=== PATIENT | male | born 1950 | race Caucasian/White ===

== ENCOUNTER 2022-09-13 17:59 | Emergency (ER) | payer MEDICARE, SELFPAY ==
[2022-09-13] VITALS (8 sets, daily range): BP systolic 166–169; BP diastolic 80–97; PULSE 59–83; RESP 20; TEMP 36.6; O2SAT 95–97
--- NOTE | ~2022-09-13 | XR_ITS ---
EXAMINATION: XR chest 2V Exam Date/Time: 09/13/2022 21:12 FIBERGLASS TUBE MOLDER HISTORY: cough Comparison: 06/12/2018. RESULT: Lines, tubes, and devices: ACDF hardware. Lungs and pleura: Senescent changes, otherwise clear. Cardiomediastinal silhouette: Stable. Other: No acute osseous or upper abdominal finding. IMPRESSION: No acute cardiopulmonary process. Reviewed, dictated and finalized at location K. RGLASS TUBE MOLDER
[2022-09-13 21:04] LABS: Influenza A QL RT-PCR Negative (Negative); Influenza B QL RT-PCR Negative (Negative); SARS-CoV-2 RNA PCR Negative
--- NOTE | 2022-09-13 22:06 | ED.URI ---
HPI - URI/Sore Throat General Chief Complaint: Upper Respiratory Infection Stated Complaint: UPPER RESP ISSUES Time Seen by Provider: 09/13/22 20:14 History of Present Illness HPI Narrative: 9-year-old male presents the emergency room for evaluation of shortness of breath, difficulty breathing, coughing, sinus congestion and postnasal drip for 2 months. Patient states that he saw his primary care provider with the symptoms started and was given a Z-Ramez and prednisone taper. States that symptoms improved briefly but have since returned. Related Data Home Medications Medication Instructions Recorded Confirmed albuterol sulfate 90 mcg/actuation 2 puff inhalation .4/-6hrs PRN 12/17/20 12/20/20 aerosol inhaler amlodipine 5 mg tablet 5 mg PO .q-hs 12/17/20 12/20/20 cyclobenzaprine 10 mg tablet 10 mg PO TID 12/17/20 12/20/20 lisinopril 40 mg tablet 40 mg PO DAILY 12/17/20 12/20/20 omeprazole magnesium 20 mg 20 mg PO DAILY 12/17/20 12/20/20 tablet,delayed release (Prilosec OTC) simvastatin 40 mg tablet 40 mg PO QHS 12/17/20 12/20/20 metformin 1,000 mg tablet 1,000 mg PO BID 12/20/20 12/20/20 Allergies Allergy/AdvReac Type Severity Reaction Status Date / Time No Known Allergies Allergy Verified 12/20/20 13:19 Review of Systems Review of Systems: CONSTITUTIONAL: Denies fever, chills, or sweats. EYES: Denies visual changes, redness, or discharge. ENT: Reports sinus congestion and postnasal drip CARDIOVASCULAR: Denies chest pain, palpitations, or edema. RESPIRATORY: Reports cough and wheezing GASTROINTESTINAL: Denies abdominal pain, nausea, vomiting, or diarrhea. GENITOURINARY: Denies dysuria or hematuria. SKIN: Denies rash or itching. MUSCULOSKELETAL: Denies back pain, joint pain, or myalgia. NEUROLOGIC: Denies headache, numbness, dizziness, or weakness. PSYCHIATRIC: Denies anxiety or depression. [facility] Past Medical History Medical History COPD (chronic obstructive pulmonary disease) Diabetes Hypertension Surgical History Surgical History H/O neck surgery History of hip surgery Previous back surgery Social History Social History Social History: current smoker Smoking packs per day: 0.75 Smoking cigarettes per day: 15.0 Smoking status: Current every day smoker Tobacco type: cigarettes Alcohol intake: never Substance use: former Exam Narrative: GENERAL: Well-appearing, well-nourished, no physical limitations, and in no acute distress. HEAD: Normocephalic, atraumatic. EYES: Conjunctivae normal, PERRLA and EOMI. ENT: External nose normal, Nares clear, no rhinorrhea or epistaxis. Mucous membranes moist. Oropharynx without tonsillar hypertrophy exudate or other lesions. External ears normal, bilateral TMs normal bilaterally NECK: Supple. No adenopathy or masses. CHEST: Expiratory wheezes throughout HEART: Regular rate and rhythm. No murmur heard. Normal peripheral pulses. EXTREMITIES: Normal range of motion. No edema. No clubbing or cyanosis SKIN: Warm, dry, no rash. No noted wounds NEURO: No focal deficits. Alert and oriented x3. MAEW. CN's II-XI intact bilaterally, normal gait PSYCH: Cooperative. Normal mood and affect. Course Vital Signs Vital signs: Vital Signs Temperature 36.6 C 09/13/22 19:12 Pulse Rate 83 09/13/22 19:12 Respiratory Rate 20 09/13/22 19:12 Blood Pressure 166/80 H 09/13/22 19:12 Pulse Oximetry 95 09/13/22 19:12 Oxygen Delivery Room Air 09/13/22 19:12 Temperature 36.6 C 09/13/22 19:12 Pulse Rate 71 09/13/22 23:18 Respiratory Rate 20 09/13/22 23:18 Blood Pressure 169/97 H 09/13/22 20:23 Pulse Oximetry 97 09/13/22 20:20 Oxygen Delivery Room Air 09/13/22 20:20 MDM - URI/Sore Throat MDM Narrative Medical decision making narrative: 9-year-old male to ER w
[2022-09-13] MEDS: IPRATROPIUM BR 0.02% INH SOLN 0.5 MG/2.5 ML VIAL INHALATION (22:25)
[2022-09-13] MEDS: ALBUTEROL SULFATE NEB 2.5 MG/3 ML INH INHALATION (22:25)
[2022-09-13] MEDS: ALBUTEROL SULFATE NEB 2.5 MG/3 ML INH 5 MG INHALATION (23:16)
== END 2022-09-13 23:49 | disposition home or self-care (01) ==
PROVIDERS: Emergency Medicine; Emergency Provider Nurse Practitioner Family; PCP Internal Medicine
DX: J44.1 Chronic obstructive pulmonary disease with (acute) exacerbation (principal); Z20.822 Contact with and (suspected) exposure to COVID-19; E11.9 Type 2 diabetes mellitus without complications; I10 Essential (primary) hypertension; F17.210 Nicotine dependence, cigarettes, uncomplicated; Z79.84 Long term (current) use of oral hypoglycemic drugs
CPT/HCPCS: 71046; 87636; 94640; 96372; 99283; 99284; J1100

== ENCOUNTER 2022-09-20 22:26 | Emergency (ER) | payer MEDICARE, SELFPAY ==
--- NOTE | ~2022-09-20 | CT_ITS ---
Clinical Indication: Shortness of breath CT Scan of the Chest with Contrast: Technique: Contiguous sections were acquired throughout the chest after intravenous administration of 100 cc of Omnipaque 350. Dose reduction technique was used on this scan by utilizing automated expos ure control and iterative reconstruction technique. The dose-length product (DLP) was 168.93 mGy-cm. Findings: Shotty mediastinal lymph nodes are not frankly enlarged by size criteria. No large central pulmonary embolus seen. No aortic aneurysm. Coronary artery calcifications are present. There is no evidence of pleural or pericardial effusion. Moderate to severe emphysema of the bilateral upper lobes noted. There is probable focal scarring at the left lung apex as well. There is a 7 mm, ovoid, noncalcified right upper lobe pulmonary nodule (a xial image 50). Images through the upper abdomen reveal no abnormalities. Impression: 7 mm noncalcified right upper lobe pulmonary nodule. According to Fleischner Society criteria, for a low-risk patient, follow-up CT scan in 6-12 months recommended, then consider additional 18-[address] scan. For a high-risk patient, follow-up CT scans in 6-12 months and in 18-24 months are recommend ed. Moderate to severe bilateral upper lobe emphysema. Reviewed, dictated and finalized at location M. HER TENDER Impression: 7 mm noncalcified right upper lobe pulmonary nodule. According to Fleischner So [facility] criteria, for a low-risk patient, follow-up CT scan in 6-12 months recomm ended, then consider additional 18-[address] scan. For a high-risk patient, f ollow-up CT scans in 6-12 months and in 18-24 months are recommended. Moderate to severe bilateral upper lobe emphysema.
--- NOTE | ~2022-09-20 | XR_ITS ---
EXAMINATION: XR chest 2V Exam Date/Time: 09/20/2022 22:39 A R SPECIALIST HISTORY: SOB, WEAKNESS, TIGHTNESS IN CHEST. Comparison: 09/05/2022. RESULT: Lines, tubes, and devices: ACDF hardware. Lungs and pleura: Senescent change, otherwise clear. Cardiomediastinal silhouette: Stable. Other: No acute osseous or upper abdominal finding. IMPRESSION: No acute cardiopulmonary process. Reviewed, dictated and finalized at location K. A R SPECIALIST
[2022-09-20 22:27] VITALS: BP 158/98; PULSE 132; RESP 24; TEMP 36.6; O2SAT 98
--- NOTE | 2022-09-20 22:31 | ECG_ITS ---
Measurements Intervals [place] Rate: 86 P: 15 MS: 124 QRS: 59 QRSD: 74 T: 68 QT: 334 QTc: 402 Interpretive Statements SINUS RHYTHM BASELINE ARTIFACT- I, II, III, AVR, AVL, AVF, V1, V3 NORMAL ECG NO PREVIOUS ECG AVAILABLE FOR COMPARISON Electronically Signed On 09-21-2022 15:20:53 STEAM OVEN OPERATOR by Ryan Berry D.O.
[2022-09-20 23:23] LABS: Basophils Percent Auto 0.3 % (0.2-1.2); Eosinophils Absolute Auto 0.1 K/mm3 (0-0.3); Eosinophils Percent Auto 1.1 % (0-4.4); Hematocrit 47.6 % (42.0-52.0); Hemoglobin 16.1 g/dL (14.0-18.0); Immature Granulocyte Absolute 0.08 K/mm3 (0.00-0.031); Immature Granulocyte Percent A 0.7 % (0-0.5); Lymphocytes Absolute Auto 2.09 K/mm3 (0.9-3.2); Lymphocytes Percent Auto 19.1 % (18.3-44.2); Mean Corpuscular HGB Conc 33.8 g/dl (32-36); Mean Corpuscular Hemoglobin 31.4 pg (26-34); Monocytes Absolute Auto 0.6 K/mm3 (0.1-0.6); Monocytes Percent Auto 5.2 % (2.6-8.5); Neutrophils Percent Auto 73.6 % (45.5-73.1); Platelet Count Result 261 k/mm3 (150-375); Red Blood Count 5.12 M/mm3 (4.6-6.20); Red Cell Distribution Width 13.6 % (11.5-14.5); White Blood Count 10.9 K/mm3 (4.5-10.0)
[2022-09-20 23:39] LABS: Prothrombin Time 12.8 Seconds (11.1-14.7)
[2022-09-20 23:40] LABS: Partial Thromboplastin Time 28.6 SECONDS (22.3-36.8)
[2022-09-20 23:50] VITALS: BP 154/80; PULSE 85; RESP 18; O2SAT 95
[2022-09-20 23:58] VITALS: PULSE 82; RESP 18; O2SAT 94
[2022-09-21] VITALS (14 sets, daily range): BP systolic 110–173; BP diastolic 68–141; PULSE 73–84; RESP 17–21; O2SAT 93–100
[2022-09-21 00:07] LABS: Alanine Aminotransferase 31 U/L (6-50); Albumin Level 3.8 g/dL (3.5-5.1); Alkaline Phosphatase 146 U/L (38-126); Anion Gap 6 mmol/L (8-16); Aspartate Amino Transferase 21 U/L (17-59); Bilirubin,Total 0.8 mg/dL (0.2-1.3); Blood Urea Nitrogen 15 mg/dL (9-20); Calcium 8.7 mg/dL (8.4-10.2); Carbon Dioxide 27 mmol/L (22-30); Chloride 103 mmol/L (98-107); Estimated CRCL calculation 63 ml/min; Estimated Glomerular Filt Rate > 60; Glucose 249 mg/dL (65-110); Lipase 257 U/L (23-300); Potassium 4.1 mmol/L (3.4-5.0); Sodium 136 mmol/L (137-145)
[2022-09-21 00:15] LABS: Troponin I < 0.012 ng/mL (0.000-0.034)
--- NOTE | 2022-09-21 00:48 | ED.GENADULT ---
HPI - General Adult General Chief complaint: Shortness of Breath/Dyspnea Stated complaint: shortness of breath Time Seen by Provider: 09/20/22 23:57 History of Present Illness HPI narrative: 72-year-old male with history of COPD and is a current smoker presenting the emergency department for evaluation of worsening shortness of breath. Patient was evaluated in the emergency department on the for shortness of breath. Patient did feel improved after breathing treatment and was discharged on prednisone and Sudafed. Patient states over the last 2 days he has had worsening shortness of breath. Patient denies any associated chest pain with this. Related Data Home Medications Medication Instructions Recorded Confirmed albuterol sulfate 90 mcg/actuation 2 puff inhalation .4/-6hrs PRN 12/17/20 12/20/20 aerosol inhaler amlodipine 5 mg tablet 5 mg PO .q-hs 12/17/20 12/20/20 cyclobenzaprine 10 mg tablet 10 mg PO TID 12/17/20 12/20/20 lisinopril 40 mg tablet 40 mg PO DAILY 12/17/20 12/20/20 omeprazole magnesium 20 mg 20 mg PO DAILY 12/17/20 12/20/20 tablet,delayed release (Prilosec OTC) simvastatin 40 mg tablet 40 mg PO QHS 12/17/20 12/20/20 metformin 1,000 mg tablet 1,000 mg PO BID 12/20/20 12/20/20 Allergies Allergy/AdvReac Type Severity Reaction Status Date / Time No Known Allergies Allergy Verified 12/20/20 13:19 Review of Systems Review of Systems: CONSTITUTIONAL: Denies fever, chills, or sweats. EYES: Denies visual changes, redness, or discharge. ENT: Denies rhinorrhea, congestion, sore throat, or otalgia. CARDIOVASCULAR: Denies chest pain, palpitations, or edema. RESPIRATORY: See HPI GASTROINTESTINAL: Denies abdominal pain, nausea, vomiting, or diarrhea. GENITOURINARY: Denies dysuria or hematuria. SKIN: Denies rash or itching. MUSCULOSKELETAL: Denies back pain, joint pain, or myalgia. NEUROLOGIC: Denies headache, numbness, or weakness. [facility] Past Medical History Medical History COPD (chronic obstructive pulmonary disease) Diabetes Hypertension Surgical History Surgical History H/O neck surgery History of hip surgery Previous back surgery Social History Social History Social History: current smoker Smoking packs per day: 0.75 Smoking cigarettes per day: 15.0 Smoking status: Current every day smoker Tobacco type: cigarettes Alcohol intake: never Substance use: former Exam Narrative: APPEARANCE: Well appearing, no pain, no distress, well-nourished. HEAD: normocephalic, atraumatic. EYES: PERRLA/EOMI, conjunctivae clear. NOSE: Normal no drainage EARS:TMS clear with good light reflex. THROAT: Pharynx clear, no exudate. NECK: Supple. No adenopathy, no masses. RESPIRATORY: Expiratory wheeze in all lung gregory CARDIOVASCULAR: Regular rate and rhythm without murmurs rubs or gallops. ABDOMINAL: Soft, nontender, nondistended, normal bowel sounds MUSCULOSKELETAL: Moves all extremities. Strength/ROM intact, No edema, No calf tenderness. NEURO: Alert. Cranial nerves II through XII intact. Grossly intact Course Course Emergency Course: Patient's lung sounds are improved with the albuterol treatment. Patient is no longer tachycardic. Patient's prednisone was recently completed. Patient is afebrile but does have a leukocytosis of 10.9. CMP is similar to his baseline. CT did show evidence of a possible chronic infection. Patient does feel improved after breathing treatment. Patient was negative for influenza COVID and RSV. Will be discharged home on antibiotics prednisone and albuterol inhaler. Patient states he feels improved and is requesting discharge to home. Admission was discussed with the patient refers to be discharged. Patient is being treated for an underlying pneumonia. Differential diagnosis does includ
[2022-09-21] MEDS: methylPREDNISolone SOD SUCC 125 MG VIAL IV PUSH (00:53)
[2022-09-21 01:26] LABS: Influenza A QL RT-PCR Negative (Negative); Influenza B QL RT-PCR Negative (Negative); RSV RNA, RT-PCR Negative (Negative); SARS-CoV-2 RNA PCR Negative
[2022-09-21] MEDS: ALBUTEROL SULFATE NEB 2.5 MG/3 ML INH 10 MG INHALATION (01:26)
[2022-09-21] MEDS: IPRATROPIUM BR 0.02% INH SOLN 0.5 MG/2.5 ML VIAL 1 MG INHALATION (01:27)
[2022-09-21 02:30] LABS: Troponin I < 0.012 ng/mL (0.000-0.034)
[2022-09-21] MEDS: AMOXICILLIN/CLAVULANATE K 875-125 MG TAB 1 TABLET PO (03:29)
[2022-09-21] MEDS: AZITHROMYCIN 250 MG TABLET 500 MG PO (03:29)
== END 2022-09-21 03:37 | disposition home or self-care (01) ==
PROVIDERS: Emergency Provider Emergency Medicine; PCP Internal Medicine
DX: J18.9 Pneumonia, unspecified organism (principal); J43.9 Emphysema, unspecified; Z20.822 Contact with and (suspected) exposure to COVID-19; E11.9 Type 2 diabetes mellitus without complications; I10 Essential (primary) hypertension; Z79.84 Long term (current) use of oral hypoglycemic drugs; F17.210 Nicotine dependence, cigarettes, uncomplicated; R91.1 Solitary pulmonary nodule
CPT/HCPCS: 36415; 71046; 71260; 80053; 83690; 84484; 85025; 85610; 85730; 87637; 93005; 96374; 99284; A9270; J2930; Q9967

== ENCOUNTER 2022-10-01 22:01 | Observation (INO) | payer MEDICARE, SELFPAY ==
[2022-10-01] VITALS (14 sets, daily range): BP systolic 115–159; BP diastolic 65–121; PULSE 90–118; RESP 18–28; TEMP 36.6; O2SAT 93–100
--- NOTE | ~2022-10-01 | XR_ITS ---
EXAMINATION: XR chest 1V portable DATE: 10/01/2022 23:13 INDICATION: Soreness of breath and cough TECHNIQUE: frontal view of the chest was obtained. COMPARISON: Chest radiograph dated 09/20/[address] dated 09/21/2022 FINDINGS: The lungs remain clear with no focal airspace opacities, pulmonary edema, pleural effusion or pneumot horax. Heart size is normal. Small hiatal hernia. Partially visualized plate and screw fixation for l ower cervical anterior spinal fusion. IMPRESSION: 1. No acute cardiopulmonary disease. 2. Small hiatal hernia. Reviewed, dictated and finalized at location A. ON TIER
--- NOTE | 2022-10-01 22:56 | ECG_ITS ---
Measurements Intervals [place] Rate: 111 P: 53 RI: 138 QRS: 68 QRSD: 76 T: 44 QT: 301 QTc: 410 Interpretive Statements SINUS TACHYCARDIA ABNORMAL ECG COMPARED TO ECG 09/20/2022 22:39:34 SINUS TACHYCARDIA NOW PRESENT Electronically Signed On 10-02-2022 7:57:30 CURB SETTER HELPER by Ryan Berry D.O.
[2022-10-01] MEDS: ALBUTEROL SULFATE NEB 2.5 MG/3 ML INH 5 MG INHALATION (23:12)
[2022-10-01 23:33] LABS: Basophils Percent Auto 0.3 % (0.2-1.2); Eosinophils Absolute Auto 0.1 K/mm3 (0-0.3); Eosinophils Percent Auto 2.2 % (0-4.4); Hematocrit 44.4 % (42.0-52.0); Hemoglobin 14.8 g/dL (14.0-18.0); Immature Granulocyte Absolute 0.04 K/mm3 (0.00-0.031); Immature Granulocyte Percent A 0.6 % (0-0.5); Lymphocytes Absolute Auto 1.28 K/mm3 (0.9-3.2); Lymphocytes Percent Auto 20.4 % (18.3-44.2); Mean Corpuscular HGB Conc 33.3 g/dl (32-36); Mean Corpuscular Hemoglobin 31.6 pg (26-34); Mean Corpuscular Volume 94.9 fl (80-100); Mean Platelet Volume 9.5 fl (7.4-10.4); Monocytes Absolute Auto 0.8 K/mm3 (0.1-0.6); Monocytes Percent Auto 12.5 % (2.6-8.5); Platelet Count Result 220 k/mm3 (150-375); Red Blood Count 4.68 M/mm3 (4.6-6.20); Red Cell Distribution Width 14.2 % (11.5-14.5); White Blood Count 6.3 K/mm3 (4.5-10.0)
[2022-10-01 23:51] LABS: Alanine Aminotransferase 23 U/L (6-50); Albumin Level 3.8 g/dL (3.5-5.1); Alkaline Phosphatase 105 U/L (38-126); Anion Gap 8 mmol/L (8-16); Aspartate Amino Transferase 20 U/L (17-59); Bilirubin,Total 0.6 mg/dL (0.2-1.3); Blood Urea Nitrogen 16 mg/dL (9-20); Calcium 8.6 mg/dL (8.4-10.2); Carbon Dioxide 22 mmol/L (22-30); Chloride 103 mmol/L (98-107); Estimated CRCL calculation 56 ml/min; Estimated Glomerular Filt Rate > 60; Glucose 270 mg/dL (65-110); Potassium 4.4 mmol/L (3.4-5.0); Sodium 133 mmol/L (137-145)
[2022-10-02] VITALS (31 sets, daily range): BP systolic 129–137; BP diastolic 60–115; PULSE 89–112; RESP 16–27; TEMP 36.2–36.8; O2SAT 93–100; BMI 24.8; BMI 23.4
[2022-10-02 00:10] LABS: Influenza A QL RT-PCR Negative (Negative); Influenza B QL RT-PCR Negative (Negative); RSV RNA, RT-PCR Negative (Negative); SARS-CoV-2 RNA PCR Negative
[2022-10-02] MEDS: ALBUTEROL SULFATE NEB 2.5 MG/3 ML INH 10 MG INHALATION (00:47)
[2022-10-02] MEDS: IPRATROPIUM BR 0.02% INH SOLN 0.5 MG/2.5 ML VIAL 2 MG INHALATION (00:48)
--- NOTE | 2022-10-02 00:49 | PM.IMHP ---
H&P: HPI History of Present Illness Date/Time: 10/02/22 00:49 Chief Complaint: Shortness of breath Narrative: This is a 72-year-old male with past medical history significant for tobacco dependence, COPD/emphysema current everyday smoker patient presents to the emergency room due to shortness of breath for the last several days not getting any better progressively has gotten worse in spite of the frequent use of nebulizers at home. Patient also with cough productive of sputum, no fevers, no rigors, no chills, no night sweats. Preliminary workup was significant for sodium 133 a chest x-ray was reported as; FINDINGS: The lungs remain clear with no focal airspace opacities, pulmonary edema, pleural effusion or pneumothorax. Heart size is normal. Small hiatal hernia. Partially visualized plate and screw fixation for lower cervical anterior spinal fusion. IMPRESSION: 1. No acute cardiopulmonary disease. 2. Small hiatal hernia. Review of Systems Review of Systems: Shortness of breath, wheezing, cough, poor appetite. Constitutional: Constitutional: Denies chills, Denies fever(s), Denies malaise and Denies night sweats Eyes: Eyes: Denies change in vision ENT: Denies odynophagia Cardiovascular: Cardiovascular: Denies chest pain and Denies leg edema Respiratory: Respiratory: Denies change in phlegm color, Reports cough, Denies excessive phlegm production, Reports dyspnea and Reports wheezing Gastrointestinal: Gastrointestinal: Denies abdominal pain, Denies dyspepsia, Denies heartburn, Denies diarrhea, Denies nausea and Denies vomiting Genitourinary: Genitourinary: Denies dysuria Musculoskeletal: Musculoskeletal: Denies back pain, Denies myalgias and Denies muscle weakness Integumentary/Breasts: Skin/Breast: Denies rash Neurologic: Denies focal weakness and Denies Sensory deficit (Neuro) Psychiatric: Psychiatric: Reports no additional psychiatric complaints and Reports as per HPI Endocrine: Endocrine: Denies cold intolerance, Denies flushing, Denies heat intolerance, Denies polyphagia, Denies polydipsia and Denies palpitations Hematologic/Lymphatic: Hematologic/Lymphatic: Reports no additional hematologic/lymphatic complaints and Reports as per HPI Allergic/Immunologic: Allergic/Immunologic: Reports no additional allergic/immunologic complaints and Reports as per HPI PMFSH Past Medical History Medical History COPD (chronic obstructive pulmonary disease) Diabetes Hypertension Surgical History Surgical History H/O neck surgery History of hip surgery Previous back surgery Social History Social History Social History: current smoker Smoking packs per day: 0.75 Smoking cigarettes per day: 15.0 Smoking status: Current every day smoker Tobacco type: cigarettes Alcohol intake: never Substance use: former Substance use type: does not use Lack of Transportation: No Lack of Food: Never True Current Housing: I Have Housing Concerned About Future Housing: No Difficulty Paying Gas/Electric Bills: No Difficulty Paying for Meds: YES Currently Unemployed: No Education: High School Diploma/GED Difficulty w/ Childcare or Family Care: No Spiritual care concerns: No Meds Home Medications and Allergies Home Medications Medication Instructions Recorded Confirmed Type albuterol sulfate 90 mcg/actuation 2 puff inhalation .4/-6hrs PRN 12/17/20 10/02/22 History aerosol inhaler Shortness Of Breath amlodipine 5 mg tablet (Norvasc) 5 mg PO .q-hs 12/17/20 10/02/22 History cyclobenzaprine 10 mg tablet 10 mg PO TID 12/17/20 10/02/22 History lisinopril 40 mg tablet (Zestril) 40 mg PO DAILY 12/17/20 10/02/22 History omeprazole magnesium 20 mg 20 mg PO DAILY 12/17/20 10/02/22 History tablet,delayed release (Prilosec OTC)
--- NOTE | 2022-10-02 01:01 | ED.GENADULT ---
HPI - General Adult General Chief complaint: Shortness of Breath/Dyspnea Stated complaint: SOB, cough for months Time Seen by Provider: 10/01/22 22:46 History of Present Illness HPI narrative: 72-year-old male with history of COPD and smoking presents to the department for evaluation of worsening shortness of breath. Patient has been having recurrent COPD exacerbations over the last 2 months. Patient was evaluated in the emergency department approximately 10 days ago and was started on antibiotics and steroids. Patient states after completing the steroids he had worsening symptoms again. Patient reports he does use albuterol nebulizer at home but denies being on any inhaled steroid. Patient states he is still a smoker. Patient reports shortness of breath but denies any associated chest pain with this. Patient also reports that last week he did have some swelling of his foreskin but states that this has since improved. Patient has been using a diaper cream. Related Data Home Medications Medication Instructions Recorded Confirmed albuterol sulfate 90 mcg/actuation 2 puff inhalation .4/-6hrs PRN 12/17/20 10/02/22 aerosol inhaler Shortness Of Breath amlodipine 5 mg tablet (Norvasc) 5 mg PO .q-hs 12/17/20 10/02/22 cyclobenzaprine 10 mg tablet 10 mg PO TID 12/17/20 10/02/22 lisinopril 40 mg tablet (Zestril) 40 mg PO DAILY 12/17/20 10/02/22 omeprazole magnesium 20 mg 20 mg PO DAILY 12/17/20 10/02/22 tablet,delayed release (Prilosec OTC) simvastatin 40 mg tablet (Zocor) 40 mg PO QHS 12/17/20 10/02/22 metformin 1,000 mg tablet 1,000 mg PO BID 12/20/20 10/02/22 Allergies Allergy/AdvReac Type Severity Reaction Status Date / Time No Known Allergies Allergy Verified 10/01/22 23:33 Review of Systems Review of Systems: CONSTITUTIONAL: Denies fever, chills, or sweats. EYES: Denies visual changes, redness, or discharge. ENT: Denies rhinorrhea, congestion, sore throat, or otalgia. CARDIOVASCULAR: Denies chest pain, palpitations, or edema. RESPIRATORY: See HPI GASTROINTESTINAL: Denies abdominal pain, nausea, vomiting, or diarrhea. GENITOURINARY: Denies dysuria or hematuria. SKIN: Denies rash or itching. MUSCULOSKELETAL: Denies back pain, joint pain, or myalgia. NEUROLOGIC: Denies headache, numbness, or weakness. [facility] Past Medical History Medical History (Updated 10/03/22 @ 16:12 by Kelsie Tinajero PA-C) COPD (chronic obstructive pulmonary disease) Diabetes Hypertension Surgical History Surgical History H/O neck surgery History of hip surgery Previous back surgery Social History Social History Social History: current smoker Smoking packs per day: 0.75 Smoking cigarettes per day: 15.0 Smoking status: Current every day smoker Tobacco type: cigarettes Alcohol intake: never Substance use: former Substance use type: does not use Lack of Transportation: No Lack of Food: Never True Current Housing: I Have Housing Concerned About Future Housing: No Difficulty Paying Gas/Electric Bills: No Difficulty Paying for Meds: YES Currently Unemployed: No Education: High School Diploma/GED Difficulty w/ Childcare or Family Care: No Living arrangements: alone Occupation/Education: retired Spiritual care concerns: No Exam Narrative: APPEARANCE: Well appearing, no pain, no distress, well-nourished. HEAD: normocephalic, atraumatic. EYES: PERRLA/EOMI, conjunctivae clear. NOSE: Normal no drainage EARS:TMS clear with good light reflex. THROAT: Pharynx clear, no exudate. NECK: Supple. No adenopathy, no masses. RESPIRATORY: Significant wheeze and tachypnea CARDIOVASCULAR: Regular rate and rhythm without murmurs rubs or gallops. ABDOMINAL: Soft, nontender, nondistended, normal bowel sounds MUSCULOSKELETAL: Moves all extremities. Strength/ROM intact, No edema, No calf tenderness. N
[2022-10-02] MEDS: methylPREDNISolone SOD SUCC 125 MG VIAL IV PUSH (01:28)
[2022-10-02] MEDS: ALBUTEROL SULFATE NEB 2.5 MG/3 ML INH 5 MG INHALATION ×6 (05:21→23:53)
[2022-10-02] MEDS: IPRATROPIUM BR 0.02% INH SOLN 0.5 MG/2.5 ML VIAL INHALATION ×6 (05:22→23:53)
[2022-10-02] MEDS: methylPREDNISolone SOD SUCC 125 MG VIAL 60 MG IV PUSH ×3 (05:44→21:07)
[2022-10-02 06:18] LABS: Glucose Point of Care 251 mg/dl (65-105)
[2022-10-02 07:55] LABS: Glucose Point of Care > 500 mg/dl (65-105)
[2022-10-02] MEDS: INSULIN ASPART (*BKC) 100 UNITS/ML 10 UNITS SUB-Q ×2 (08:35→11:07)
[2022-10-02] MEDS: INSULIN GLARGINE (*BKC) 100 UNITS/ML 40 UNITS SUB-Q (08:35)
[2022-10-02 08:49] LABS: Anion Gap 9 mmol/L (8-16); Blood Urea Nitrogen 15 mg/dL (9-20); Calcium 9.3 mg/dL (8.4-10.2); Carbon Dioxide 23 mmol/L (22-30); Chloride 96 mmol/L (98-107); Estimated CRCL calculation 51 ml/min; Estimated Glomerular Filt Rate > 60; Glucose 502 mg/dL (65-110); Magnesium 1.8 mg/dL (1.6-2.3); Sodium 128 mmol/L (137-145)
[2022-10-02 08:53] LABS: Hemoglobin A1C 9.3 % (<5.7)
[2022-10-02 08:58] LABS: Hematocrit 42.5 % (42.0-52.0); Hemoglobin 13.9 g/dL (14.0-18.0); Mean Corpuscular HGB Conc 32.7 g/dl (32-36); Mean Corpuscular Hemoglobin 31.4 pg (26-34); Mean Corpuscular Volume 95.9 fl (80-100); Mean Platelet Volume 9.6 fl (7.4-10.4); Platelet Count Result 199 k/mm3 (150-375); Red Blood Count 4.43 M/mm3 (4.6-6.20); Red Cell Distribution Width 14.1 % (11.5-14.5); White Blood Count 6.3 K/mm3 (4.5-10.0)
[2022-10-02] MEDS: metFORMIN HCL 500 MG TABLET 1000 MG PO ×2 (09:42→17:06)
[2022-10-02] MEDS: lisinopriL 20 MG TABLET 40 MG PO (09:42)
[2022-10-02] MEDS: PANTOPRAZOLE 40 MG TABLET PO (09:44)
[2022-10-02] MEDS: ENOXAPARIN 40 MG/0.4 ML SYRINGE SUB-Q (09:44)
[2022-10-02] MEDS: CYCLOBENZAPRINE HCL 10 MG TABLET PO ×3 (09:44→17:06)
[2022-10-02 09:46] LABS: Glucose Point of Care 472 mg/dl (65-105)
[2022-10-02 10:46] LABS: Glucose Point of Care 405 mg/dl (65-105)
[2022-10-02] MEDS: INSULIN GLARGINE (*BKC) 100 UNITS/ML 20 UNITS SUB-Q (11:07)
[2022-10-02 11:48] LABS: Glucose Point of Care 390 mg/dl (65-105)
--- NOTE | 2022-10-02 11:48 | PM.IMPN ---
Progress Note: A&P Assessment and Plan (1) COPD exacerbation: Code(s): J44.1 - Chronic obstructive pulmonary disease with (acute) exacerbation Status: Acute Assessment and Plan: 10/02/2022 interval history: 72-year-old male with long history of smoking he states he had been smoking 2 packs per day and having cough, shortness of breath, and wheezing he has cut down on smoking nonsmoker 1/2 pack per day, a presented emergency department with exacerbation of COPD being treated with Solu-Medrol and bronchodilator and azithromycin was added to cover for atypical pneumonia, patient states is feeling much better compared to when he arrived not as short of breath, will taper patient Solu-Medrol his symptoms have improved if blood sugar is a climbing high, will also add steroid inhaler, will continue to monitor will have a PT OT evaluate the patient further recommendation to follow. (2) Tobacco dependence: Code(s): F17.200 - Nicotine dependence, unspecified, uncomplicated Status: Acute Assessment and Plan: patient had been smoking 2 packs per day now has cut down to half a pack per day, patient is counseled to stop smoking Subjective Date/time seen: 10/02/22 11:48 ED-HPI narrative: 72-year-old male with history of COPD and smoking presents emerged department for evaluation of worsening shortness of breath.? Patient has been having recurrent COPD exacerbations over the last 2 months.? Patient was evaluated in the emergency department approximately 10 days ago and was started on antibiotics and steroids.? Patient states after completing the steroids he had worsening symptoms again.? Patient reports he does use albuterol nebulizer at home but denies being on any inhaled steroid.? Patient states he is still a smoker.? Patient reports shortness of breath but denies any associated chest pain with this. Patient also reports that last week he did have some swelling of his foreskin but states that this has since improved.? Patient has been using a diaper cream. 10/02/2022 interval history: 72-year-old male with long history of smoking he states he had been smoking 2 packs per day and having cough, shortness of breath, and wheezing he has cut down on smoking nonsmoker 1/2 pack per day, a presented emergency department with exacerbation of COPD being treated with Solu-Medrol and bronchodilator and azithromycin was added to cover for atypical pneumonia, patient states is feeling much better compared to when he arrived not as short of breath, will taper patient Solu-Medrol his symptoms have improved if blood sugar is a climbing high, will also add steroid inhaler, will continue to monitor will have a PT OT evaluate the patient further recommendation to follow. Review of Systems Review of Systems: CONSTITUTIONAL: Denies fever, chills, or sweats. EYES: Denies visual changes, redness, or discharge. ENT: Denies rhinorrhea, congestion, sore throat, or otalgia. CARDIOVASCULAR: Denies chest pain, palpitations, or edema. RESPIRATORY: See HPI GASTROINTESTINAL: Denies abdominal pain, nausea, vomiting, or diarrhea. GENITOURINARY: Denies dysuria or hematuria. SKIN: Denies rash or itching. MUSCULOSKELETAL: Denies back pain, joint pain, or myalgia. NEUROLOGIC: Denies headache, numbness, or weakness. Exam Narrative: Patient is comfortable, NAD HEENT: eyes are clear and none icteric LUNGS: bilateral fair air entry with wheezing and rhonchi HEART: RR S1S2 ABD: nondistended Lower extremities: no edema SKIN: nonjaundiced Neuro: grossly intact. Objective Data Vital Signs Vital Signs: Vital Signs - 24 hr 10/01/22 22:04 10/01/22 22:55 10/01/22 23:12 Temperature 97.8 F Pulse Rate 118 H 115 H 94 Respiratory Rate 20 20 Blood Pressure 135/98 H Pulse Oximetry 97 Oxygen Delivery Room Air 10/01/22 23:15 10/01/22 23:21 10/02/22 00:48 Temperature Pulse Rate 109 H 112 H Respiratory Rate 20 20 Blood Pressure
--- NOTE | 2022-10-02 13:50 | PM.CNPUL ---
Assessment and Plan Assessment and plan (1) COPD exacerbation: Code(s): J44.1 - Chronic obstructive pulmonary disease with (acute) exacerbation Status: Acute Assessment and Plan: 72-year-old man with radiographic emphysema on last chest CT has had a recurrent cough wheezing shortness of breath over the last 3 months related to COPD exacerbation. Patient never had history of obstructive airway disease in the past and he had no evidence of elevated eosinophils on last CBC. He has been treated with antibiotics during most recent ER evaluation. Plan: Continue with nebulized short-acting bronchodilators, DVT prophylaxis. I have crease the IV Solu-Medrol to 3 times daily. (2) Tobacco dependence: Code(s): F17.200 - Nicotine dependence, unspecified, uncomplicated Status: Acute (3) Lung nodule: Code(s): R91.1 - Solitary pulmonary nodule Status: Acute Assessment and Plan: Patient was found to have a right upper lobe nodule measuring 7 mm. Will repeat chest CT in approximately 6 months. The patient needs to return to Pulmonary Clinic for follow-up for both his lung nodule and also COPD. History of Present Illness History of Present Illness Consult date: 10/02/22 Chief complaint: copd exacerbation Narrative: this 72-year-old man was admitted to the hospital with recurrent shortness of breath and wheezing. The patient was in his usual state of health until approximately 3 months ago when he started to have cough with sputum production wheezing and shortness of breath. The patient was evaluated by his primary care provider who prescribed oral steroid burst for 5 days and ics / Laba inhaler. The patient temporarily felt better but approximately 3 weeks ago he started to have again shortness of breath wheezing and cough. He has been evaluated again in the emergency room over the last 3 weeks and has been described oral steroid burst again as well as Augmentin and Zithromax. initial diagnostic studies with a chest CT showed centrilobular emphysema bilaterally and a 7 mm right upper lobe nodule. The patient has been treated with nebulized short-acting bronchodilators and IV steroids. He continues to have mild wheezing, less shortness of breath but no fever chills hemoptysis chest pain palpitations or lower extremity edema. he tested negative for RSV influenza and covid during recent ER evaluation. He has been a smoker of approximately 1 pack per day for many years. 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 He had no history of asthma. Past medical history is also significant for diabetes mellitus and hypertension. Review of Systems Review of Systems: Patient reports no significant weight changes. He has no orthopnea. He has history of acid reflux disease and has been on medications. He has had some loose bowel movements lately. He he has no joint pain. He has no lower extremity edema. The remainder of the 12 point system review is negative. [facility] Past Medical History Medical History COPD (chronic obstructive pulmonary disease) Diabetes Hypertension Surgical History Surgical History H/O neck surgery History of hip surgery Previous back surgery Social History Social History Social History: current smoker Smoking packs per day: 0.75 Smoking cigarettes per day: 15.0 Smoking status: Current every day smoker Tobacco type: cigarettes Alcohol intake: never Substance use: former Substance use type: does not use Lack of Transportation: No Lack of Food: Never True Current Housing: I Have Housing Concerned About Future Housing: No Difficulty Paying Gas/Electric Bills: No Difficulty Paying for Meds: YES Currently Unemployed: No Education: High School Diploma/GED Difficulty w/ Childcare
[2022-10-02 16:51] LABS: Glucose Point of Care 265 mg/dl (65-105)
[2022-10-02] MEDS: INSULIN ASPART (*BKC) 100 UNITS/ML SUB-Q (17:06)
[2022-10-02 20:26] LABS: Glucose Point of Care 245 mg/dl (65-105)
[2022-10-02] MEDS: SIMVASTATIN 20 MG TABLET 40 MG PO (21:06)
[2022-10-02] MEDS: amLODIPine BESYLATE 5 MG TABLET PO (21:07)
[2022-10-02] MEDS: rOPINIRole HCL 0.5 MG TABLET BY MOUTH (21:07)
[2022-10-03] VITALS (14 sets, daily range): BP systolic 114–141; BP diastolic 55–71; PULSE 87–109; RESP 16–22; TEMP 36–36.7; O2SAT 94–97
[2022-10-03] MEDS: ALBUTEROL SULFATE NEB 2.5 MG/3 ML INH 5 MG INHALATION ×5 (04:10→20:30)
[2022-10-03] MEDS: IPRATROPIUM BR 0.02% INH SOLN 0.5 MG/2.5 ML VIAL INHALATION ×5 (04:10→20:30)
[2022-10-03] MEDS: methylPREDNISolone SOD SUCC 125 MG VIAL 60 MG IV PUSH ×3 (05:51→21:19)
[2022-10-03 06:29] LABS: Hematocrit 39.7 % (42.0-52.0); Hemoglobin 13.3 g/dL (14.0-18.0); Mean Corpuscular HGB Conc 33.5 g/dl (32-36); Mean Corpuscular Hemoglobin 31.1 pg (26-34); Mean Corpuscular Volume 92.8 fl (80-100); Mean Platelet Volume 9.1 fl (7.4-10.4); Platelet Count Result 220 k/mm3 (150-375); Red Blood Count 4.28 M/mm3 (4.6-6.20); Red Cell Distribution Width 14.1 % (11.5-14.5); White Blood Count 11.4 K/mm3 (4.5-10.0)
[2022-10-03 06:44] LABS: Anion Gap 8 mmol/L (8-16); Blood Urea Nitrogen 21 mg/dL (9-20); Calcium 9.2 mg/dL (8.4-10.2); Carbon Dioxide 21 mmol/L (22-30); Chloride 102 mmol/L (98-107); Estimated CRCL calculation 56 ml/min; Estimated Glomerular Filt Rate > 60; Glucose 221 mg/dL (65-110); Magnesium 1.8 mg/dL (1.6-2.3); Potassium 4.4 mmol/L (3.4-5.0); Sodium 131 mmol/L (137-145)
[2022-10-03 08:09] LABS: Glucose Point of Care 183 mg/dl (65-105)
--- NOTE | 2022-10-03 09:05 | PM.PNPUL ---
Progress Note: A&P Assessment and Plan (1) COPD exacerbation: Code(s): J44.1 - Chronic obstructive pulmonary disease with (acute) exacerbation Status: Acute Assessment and Plan: 72-year-old man with a history of recurrent cough wheezing for the last 3 months related to partially treated COPD exacerbation. He has been on IV steroids and nebulized short-acting bronchodilators since yesterday. Respiratory status seems to be improving. Patient has less shortness of breath less wheezing. Plan: Continue with current regimen of IV steroids nebulized short-acting bronchodilators and DVT prophylaxis. Anticipate discharging patient home in a.m. (2) Tobacco dependence: Code(s): F17.200 - Nicotine dependence, unspecified, uncomplicated Status: Acute Subjective Date/time seen: 10/03/22 09:05 Interval history: Patient doing better. He has less coughing and less wheezing. Remaining on room air. Review of Systems Review of Systems: All system review is negative except as noted in HPI and below Exam Narrative: GENERAL APPEARANCE: Well developed, well nourished, alert and cooperative, and appears to be in no acute distress while breathing room air SKIN: Inspection of the skin reveals no rashes, ulcerations or petechiae. HEENT: Sclerae anicteric and conjunctivae pink and moist. Extraocular movements were intact and pupils were equal, round, and reactive to light. The oral mucosa, hard and soft palate, tongue and posterior pharynx were normal. NECK: Supple. There was no thyroid enlargement, and no tenderness, or masses were felt. CHEST: Normal AP diameter and normal contour without any kyphoscoliosis. LUNGS: Auscultation of the lungs revealed minimal expiratory wheezing bilaterally CARDIAC: There was a regular rate and rhythm without any murmurs, gallops, rubs. ABDOMEN: Soft and nontender with normal bowel sounds. There was no organomegaly. LYMPH NODES: No lymphadenopathy was appreciated in the neck. EXTREMITIES: No cyanosis, clubbing or edema. NEUROLOGIC: Alert and oriented x 3. Normal affect. Objective Data Vital Signs Vital Signs: Vital Signs - 24 hr 10/02/22 09:20 10/02/22 09:20 10/02/22 09:40 Temperature Pulse Rate 110 H 108 H Respiratory Rate 18 18 Blood Pressure Pulse Oximetry 96 Oxygen Delivery Room Air 10/02/22 12:08 10/02/22 12:23 10/02/22 15:02 Temperature Pulse Rate 102 H 104 H 100 Respiratory Rate 18 18 18 Blood Pressure Pulse Oximetry Oxygen Delivery 10/02/22 14:00 10/02/22 15:19 10/02/22 20:49 Temperature 36.6 C Pulse Rate 112 H 104 H 102 H Respiratory Rate 24 H 18 18 Blood Pressure 137/72 Pulse Oximetry 94 Oxygen Delivery 10/02/22 20:50 10/02/22 21:02 10/02/22 22:13 Temperature 36.8 C Pulse Rate 101 H 106 H Respiratory Rate 18 16 Blood Pressure 131/65 Pulse Oximetry 96 96 Oxygen Delivery Room Air 10/02/22 21:07 10/03/22 00:01 10/03/22 00:14 Temperature Pulse Rate 109 H 107 H Respiratory Rate 18 18 Blood Pressure Pulse Oximetry Oxygen Delivery Room Air 10/03/22 04:10 10/03/22 04:25 10/03/22 05:29 Temperature 36.7 C Pulse Rate 103 H 101 H 100 Respiratory Rate 18 18 16 Blood Pressure 114/55 L Pulse Oximetry 95 Oxygen Delivery 10/03/22 07:58 10/03/22 07:58 10/03/22 08:07 Temperature Pulse Rate 100 100 99 Respiratory Rate 18 18 Blood Pressure Pulse Oximetry 97 Oxygen Delivery Room Air Intake/Output Intake/Output: Intake & Output 09/30/22 10/01/22 10/02/22 10/03/22 23:59 23:59 23:59 23:59 Intake Total 2260 240 Output Total 1150 Balance 1110 240 Meds/Results Medications: Active Medications Generic Name Dose Route Start Last Admin Trade Name Peter PRN Reason Stop Dose Admin Albuterol 5 mg 10/02/22 04:00 10/03/22 07:57 Albuterol Sulfate Neb 2.5 Mg/3 Ml Inh INHALATION 5 mg Q4HRT FCO Administration Albuterol 2 puff 0
[2022-10-03] MEDS: CYCLOBENZAPRINE HCL 10 MG TABLET PO ×3 (10:29→17:26)
[2022-10-03] MEDS: PANTOPRAZOLE 40 MG TABLET PO (10:29)
[2022-10-03] MEDS: lisinopriL 20 MG TABLET 40 MG PO (10:29)
[2022-10-03] MEDS: metFORMIN HCL 500 MG TABLET 1000 MG PO ×2 (10:29→17:26)
[2022-10-03] MEDS: ENOXAPARIN 40 MG/0.4 ML SYRINGE SUB-Q (10:30)
[2022-10-03] MEDS: INSULIN GLARGINE (*BKC) 100 UNITS/ML 40 UNITS SUB-Q (10:33)
[2022-10-03 11:51] LABS: Glucose Point of Care 337 mg/dl (65-105)
[2022-10-03] MEDS: INSULIN ASPART (*BKC) 100 UNITS/ML SUB-Q ×2 (12:19→21:20)
--- NOTE | 2022-10-03 16:07 | PM.IMPN ---
Progress Note: A&P Assessment and Plan (1) COPD exacerbation: Code(s): J44.1 - Chronic obstructive pulmonary disease with (acute) exacerbation Status: Acute Assessment and Plan: Presented with increased shortness of breath and wheezing ongoing for 3 months, worsening more recently. Symptoms felt to be consistent with COPD exacerbation. Continue IV Solu-Medrol 60 mg q8h. Continue albuterol and ipratropium nebs. Appreciate pulmonology consultation. No indication for antibiotics at this time. Hopeful discharge home tomorrow if continued improvement (2) Tobacco dependence: Code(s): F17.200 - Nicotine dependence, unspecified, uncomplicated Status: Acute Assessment and Plan: Patient smokes 3/4 pack a day. Continue to encourage smoking cessation. Nicotine patch available as needed during admission (3) Hyponatremia: Code(s): E87.1 - Hypo-osmolality and hyponatremia Status: Acute Assessment and Plan: sodium levels are stable. Continue to monitor (4) Diabetes: Code(s): E11.9 - Type 2 diabetes mellitus without complications Status: Acute Assessment and Plan: A1c is 9.3. Blood sugars running higher this admission secondary to IV steroids. Continue home metformin. continue Lantus 40 units daily and moderate dose sliding scale insulin. Accu-Cheks and hypoglycemic protocol in place Subjective Date/time seen: 10/03/22 16:07 Interval history: date of service: 10/03/2022 Navid Huntley is a 72-year-old male with a history of hypertension, diabetes, and COPD who is seen in follow-up for COPD exacerbation. Patient states that he is breathing better. He is able to speak in full sentences today which he notes is an improvement. His wheezing has improved. He denies YAN. He was able to walk around the unit today and tolerated this well. Continues to endorse cough productive of green sputum. Denies chest pain or palpitations. No pleuritic discomfort. No abdominal pain, nausea, vomiting, fever, or chills. Review of Systems Review of Systems: All systems reviewed & are unremarkable except as noted in HPI and below Exam Narrative: General: Thin, well-appearing 72-year-old male, sitting up in bed, comfortable, NARD Neuro: awake, alert and oriented x4, speech clear, no focal neuro deficits noted HEENMT: normocephalic, atraumatic, EOMI, sclerae anicteric Respiratory: faint expiratory wheezes bilaterally, nonlabored breathing Cardio: regular rate, regular rhythm with S1-S2 Abdomen: nondistended, normoactive bowel sounds, soft, nontender to palpation Extremities: no edema, erythema, or tenderness to palpation, DP pulses 2+ bilaterally Skin: no rashes or lesions, warm and dry Psych: appropriate mood and affect, judgment and insight intact Objective Data Vital Signs Vital Signs: Vital Signs - 24 hr 10/02/22 20:49 10/02/22 20:50 10/02/22 21:02 Temperature Pulse Rate 102 H 101 H Respiratory Rate 18 18 Blood Pressure Pulse Oximetry 96 Oxygen Delivery Room Air 10/02/22 22:13 10/02/22 21:07 10/03/22 00:01 Temperature 98.2 F Pulse Rate 106 H 109 H Respiratory Rate 16 18 Blood Pressure 131/65 Pulse Oximetry 96 Oxygen Delivery Room Air 10/03/22 00:14 10/03/22 04:10 10/03/22 04:25 Temperature Pulse Rate 107 H 103 H 101 H Respiratory Rate 18 18 18 Blood Pressure Pulse Oximetry Oxygen Delivery 10/03/22 05:29 10/03/22 07:58 10/03/22 07:58 Temperature 98.0 F Pulse Rate 100 100 100 Respiratory Rate 16 18 Blood Pressure 114/55 L Pulse Oximetry 95 97 Oxygen Delivery Room Air 10/03/22 08:07 10/03/22 09:31 10/03/22 11:15 Temperature Pulse Rate 99 91 Respiratory Rate 18 18 Blood Pressure Pulse Oximetry Oxygen Delivery Room Air 10/03/22 10:30 10/03/22 13:58 10/03/22 15:18 Temperature 97.7 F Pulse Rate 102 H 92 Respiratory Rate 22 H 18 Blood P
[2022-10-03 16:41] LABS: Glucose Point of Care 216 mg/dl (65-105)
[2022-10-03 20:54] LABS: Glucose Point of Care 234 mg/dl (65-105)
[2022-10-03] MEDS: SIMVASTATIN 20 MG TABLET 40 MG PO (21:19)
[2022-10-03] MEDS: amLODIPine BESYLATE 5 MG TABLET PO (21:19)
[2022-10-03] MEDS: guaiFENesin 12 HR 600 MG TABCR PO (21:19)
[2022-10-03] MEDS: rOPINIRole HCL 0.5 MG TABLET BY MOUTH (21:19)
[2022-10-04] VITALS (9 sets, daily range): BP systolic 131; BP diastolic 68; PULSE 80–103; RESP 16–20; TEMP 36.3; O2SAT 92–95
[2022-10-04] MEDS: IPRATROPIUM BR 0.02% INH SOLN 0.5 MG/2.5 ML VIAL INHALATION ×4 (00:10→11:31)
[2022-10-04] MEDS: ALBUTEROL SULFATE NEB 2.5 MG/3 ML INH 5 MG INHALATION ×4 (00:10→11:31)
--- NOTE | 2022-10-04 03:36 | PC.NURSE ---
Pt has been resting comfortably for majority of shift. Pt is up independent in room. Pt has had no reports of pain and expresses no needs at this time. Pt participated and contribute in plan of care. Will continue to monitor pt.
[2022-10-04 05:34] LABS: Hematocrit 39.7 % (42.0-52.0); Hemoglobin 13.4 g/dL (14.0-18.0); Mean Corpuscular HGB Conc 33.8 g/dl (32-36); Mean Corpuscular Volume 94.7 fl (80-100); Mean Platelet Volume 9.3 fl (7.4-10.4); Platelet Count Result 200 k/mm3 (150-375); Red Blood Count 4.19 M/mm3 (4.6-6.20); Red Cell Distribution Width 14.2 % (11.5-14.5); White Blood Count 8.2 K/mm3 (4.5-10.0)
[2022-10-04 05:44] LABS: Anion Gap 9 mmol/L (8-16); Blood Urea Nitrogen 23 mg/dL (9-20); Calcium 9.2 mg/dL (8.4-10.2); Carbon Dioxide 22 mmol/L (22-30); Chloride 100 mmol/L (98-107); Estimated CRCL calculation 56 ml/min; Estimated Glomerular Filt Rate > 60; Glucose 221 mg/dL (65-110); Magnesium 1.9 mg/dL (1.6-2.3); Potassium 4.3 mmol/L (3.4-5.0); Sodium 131 mmol/L (137-145)
[2022-10-04] MEDS: methylPREDNISolone SOD SUCC 125 MG VIAL 60 MG IV PUSH (05:59)
[2022-10-04 08:03] LABS: Glucose Point of Care 204 mg/dl (65-105)
--- NOTE | 2022-10-04 08:43 | PM.PNPUL ---
Progress Note: A&P Assessment and Plan (1) COPD exacerbation: Code(s): J44.1 - Chronic obstructive pulmonary disease with (acute) exacerbation Status: Acute Assessment and Plan: 72-year-old man with a history of recurrent cough wheezing for the last 3 months related to partially treated COPD exacerbation. patient has been on IV steroids and nebulized short-acting bronchodilators with improvement of his respiratory status. On physical exam today he has significantly less wheezing than before. Plan: Okay to DC patient home today on the following medications. Prednisone 35 mg daily for 4 days followed by prednisone 30 mg daily for 4 days, then 25 mg daily for 4 days, then 20mg for 4 days, then 15 for 4 days, then 10 for 4 days, then 5 mg for 4 days, then stop. patient should be started on triple inhaler like Trelegy 200 inhaler one puff daily, rescue albuterol inhaler p.r.n.. He will continue with his nebulized albuterol treatments on p.r.n. basis as well. Patient should return to Pulmonary Clinic for follow-up in approximately 3 weeks. Will sign off, please call with any questions. (2) Tobacco dependence: Code(s): F17.200 - Nicotine dependence, unspecified, uncomplicated Status: Acute Subjective Date/time seen: 10/04/22 08:43 Interval history: Patient doing better today. Remains on room air. Less shortness of breath. Anxious to go home Review of Systems Review of Systems: All systems reviewed & are unremarkable except as noted in HPI and below ( HPI and below) Exam Narrative: GENERAL APPEARANCE: Well developed, well nourished, alert and cooperative, and appears to be in no acute distress while breathing room air SKIN: Inspection of the skin reveals no rashes, ulcerations or petechiae. HEENT: Sclerae anicteric and conjunctivae pink and moist. Extraocular movements were intact and pupils were equal, round, and reactive to light. The oral mucosa, hard and soft palate, tongue and posterior pharynx were normal. NECK: Supple. There was no thyroid enlargement, and no tenderness, or masses were felt. CHEST: Normal AP diameter and normal contour without any kyphoscoliosis. LUNGS: Auscultation of the lungs revealed minimal expiratory wheezing bilaterally CARDIAC: There was a regular rate and rhythm without any murmurs, gallops, rubs. ABDOMEN: Soft and nontender with normal bowel sounds. There was no organomegaly. LYMPH NODES: No lymphadenopathy was appreciated in the neck. EXTREMITIES: No cyanosis, clubbing or edema. NEUROLOGIC: Alert and oriented x 3. Normal affect. Objective Data Vital Signs Vital Signs: Vital Signs - 24 hr 10/03/22 09:31 10/03/22 11:15 10/03/22 10:30 Temperature Pulse Rate 91 Respiratory Rate 18 Blood Pressure Pulse Oximetry Oxygen Delivery Room Air Room Air 10/03/22 13:58 10/03/22 15:18 10/03/22 15:26 Temperature 36.5 C Pulse Rate 102 H 92 87 Respiratory Rate 22 H 18 18 Blood Pressure 141/71 H Pulse Oximetry 95 Oxygen Delivery 10/03/22 20:13 10/03/22 20:30 10/03/22 20:40 Temperature Pulse Rate 90 91 Respiratory Rate 16 16 Blood Pressure Pulse Oximetry Oxygen Delivery Room Air 10/04/22 00:11 10/04/22 00:26 10/03/22 22:00 Temperature 36.0 C L Pulse Rate 85 80 100 Respiratory Rate 16 16 16 Blood Pressure 129/60 Pulse Oximetry 94 Oxygen Delivery 10/04/22 03:48 10/04/22 03:56 10/04/22 06:00 Temperature 36.3 C L Pulse Rate 84 84 95 Respiratory Rate 16 16 16 Blood Pressure 131/68 Pulse Oximetry 95 Oxygen Delivery 10/04/22 08:02 10/04/22 08:02 10/04/22 08:18 Temperature Pulse Rate 87 88 Respiratory Rate 20 20 Blood Pressure Pulse Oximetry 92 Oxygen Delivery Room Air Intake/Output Intake/Output: Intake & Output 10/01/22 10/02/22 10/03/22 10/04/22 23:59 23:59 23:59 23:59 Intake Total 2260 2400 650 Output Total 1150 Balance 1110 2400 650 Meds
[2022-10-04] MEDS: INSULIN ASPART (*BKC) 100 UNITS/ML SUB-Q ×2 (09:09→12:22)
[2022-10-04] MEDS: PANTOPRAZOLE 40 MG TABLET PO (09:09)
[2022-10-04] MEDS: lisinopriL 20 MG TABLET 40 MG PO (09:09)
[2022-10-04] MEDS: metFORMIN HCL 500 MG TABLET 1000 MG PO (09:09)
[2022-10-04] MEDS: guaiFENesin 12 HR 600 MG TABCR PO (09:09)
[2022-10-04] MEDS: CYCLOBENZAPRINE HCL 10 MG TABLET PO ×2 (09:09→12:23)
[2022-10-04] MEDS: INSULIN GLARGINE (*BKC) 100 UNITS/ML 40 UNITS SUB-Q (09:10)
[2022-10-04] MEDS: ENOXAPARIN 40 MG/0.4 ML SYRINGE SUB-Q (09:10)
[2022-10-04 11:49] LABS: Glucose Point of Care 256 mg/dl (65-105)
--- NOTE | 2022-10-04 11:56 | PM.DS ---
DS: Admitting Diagnosis Discharge Date 10/04/22 Admitting Diagnosis COPD Exacerbation DS: Discharge Diagnosis Discharge Diagnosis (1) COPD exacerbation: Code(s): J44.1 - Chronic obstructive pulmonary disease with (acute) exacerbation Status: Acute Assessment and Plan: Presented with increased shortness of breath and wheezing ongoing for 3 months, worsening more recently. Symptoms felt to be consistent with COPD exacerbation. Received IV Solu-Medrol during admission with symptomatic improvement. Seen in consultation by pulmonology. Will continue PO prednisone taper per pulmonology recommendations (35 mg x 4 days with 5 mg taper every 4 days). Started on Trelegy inhaler. Albuterol rescue inhaler as needed. (2) Tobacco dependence: Code(s): F17.200 - Nicotine dependence, unspecified, uncomplicated Status: Acute Assessment and Plan: Patient smokes 3/4 pack a day. Educated on smoking cessation. (3) Hyponatremia: Code(s): E87.1 - Hypo-osmolality and hyponatremia Status: Acute Assessment and Plan: Likely due to hyperglycemia. Sodium levels improved with blood sugar control. (4) Diabetes: Code(s): E11.9 - Type 2 diabetes mellitus without complications Status: Acute Assessment and Plan: A1c is 9.3. Patient admits that he has not taken his hypoglycemic agents in >3 months and no longer monitors blood sugars at home. Blood sugars ran high during admission secondary to IV steroids. Home metformin was restarted and lantus initiated with improvement in blood sugars. He was agreeable to continuing Lantus 20 units qHS at home especially given extended duration of oral steroids. He will monitor blood sugars at home ACHS and review blood sugar trends with PCP in 1 week. DS: Summary Hospital Course Hospital Course: Date of admission: 10/02/2022 Date of discharge: 10/04/2022 Navid Huntley is a 72-year-old male with a history of hypertension, diabetes, and COPD who presented to the emergency department on 10/02/2022 with complaints of worsening shortness of breath. Patient recently completed a course of antibiotics and steroids 10 days prior to presentation with no improvement in symptoms. On presentation to the ED, he was tachycardic with additional vital signs stable, glucose was 270 with additional laboratory workup unremarkable. Patient was admitted to the hospitalist service for further evaluation and management and was seen in consultation by pulmonology. Please see above for further details. Patient was managed with IV steroids and scheduled nebs with significant symptomatic improvement. He was evaluated by pulmonology who recommended prednisone taper as described above. Patient was prescribed Trelegy inhaler which he will use daily and albuterol rescue inhaler as needed. He will follow-up with pulmonology in 3 weeks. Patient was educated on smoking cessation. Long discussion regarding blood sugar monitoring and glucose control. Patient agreeable to starting Lantus 20 units q.h.s., especially while on extended duration of steroids. He will follow-up with his PCP in 1 week to review blood sugar trends and adjust regimen as needed. Discussed with the patient worrisome signs and symptoms for which to return and he was educated on his medications. He was discharged in hemodynamically stable condition on 10/04/2022. Time Spent with Patient Time attestation: Total time spent providing and/or coordinating discharge services: 50 minutes Time spent: Greater than 30 minutes Exam Narrative: General: Thin, well-appearing 72-year-old male, sitting up in bed, comfortable, NARD Neuro: awake, alert and oriented x4, speech clear, no focal neuro deficits noted HEENMT: normocephalic, atraumatic, EOMI, sclerae anicteric Respiratory: faint expiratory wheezes bilaterally, nonlabored breathing Cardio: regular rate, regular rhythm with S1-S2 Abdomen: nondiste
== END 2022-10-04 14:20 | disposition home or self-care (01) ==
LOC: ANHED 10-02 01:05 → ANH3MEDSUR 10-02 02:16
PROVIDERS: Family Medicine; Admitting Provider Internal Medicine; Emergency Provider Emergency Medicine; PCP Internal Medicine; Visit Provider Physician Assistant
DX: J44.1 Chronic obstructive pulmonary disease with (acute) exacerbation (principal); E87.1 Hypo-osmolality and hyponatremia; R91.1 Solitary pulmonary nodule; E11.9 Type 2 diabetes mellitus without complications; I10 Essential (primary) hypertension; F17.210 Nicotine dependence, cigarettes, uncomplicated; Z79.891 Long term (current) use of opiate analgesic; Z79.51 Long term (current) use of inhaled steroids; Z79.84 Long term (current) use of oral hypoglycemic drugs; Z79.4 Long term (current) use of insulin; Z20.822 Contact with and (suspected) exposure to COVID-19
CPT/HCPCS: 36415; 71045; 80048; 80053; 82948; 83036; 83735; 85025; 85027; 87040; 87637; 93005; 94640; 96372; 96374; 96375; 96376; 97165; 99285; A9270; G0378; J0456; J1650; J1815; J2930

== ENCOUNTER 2023-02-28 19:27 | Emergency (ER) | payer MEDICARE, SELFPAY ==
[2023-02-28] VITALS (19 sets, daily range): BP systolic 145–179; BP diastolic 73–147; PULSE 70–83; RESP 15–21; TEMP 37; O2SAT 95–100
--- NOTE | ~2023-02-28 | CT_ITS ---
CT ANGIOGRAM NECK AND HEAD History: CVA, left-sided weakness. Technique: Serial spiral axial images through the head and neck were obtained during arterial phase I V injection of 100 cc of Omnipaque 350. 3-D postprocessing and MIP images were then reconstructed on the remote workstation. Dose reduction technique was used on this scan by utilizing automated exposur e control and iterative reconstruction technique. The dose-length product (DLP) was 1026.78 mGy-cm. CTA neck findings: Bilateral common carotid and external carotid arteries are patent. There is a hig h-grade (95%) stenosis of the proximal right internal carotid artery, but no complete occlusion evide nt. There is calcified plaque at the proximal left internal carotid artery without stenosis. The prox imal right internal carotid artery demonstrates 95% stenosis relative to the normal distal artery lum en diameter. The proximal left internal carotid artery demonstrates 0% stenosis relative to the hilaria l distal artery lumen diameter. Lung apices demonstrate moderate to advanced emphysema. There is a 6 mm noncalcified right upper lobe pulmonary nodule (series 5 image 10). Multiple mildly prominent mediastinal lymph nodes are present, nonspecific. CTA head findings: Distal vertebral arteries, basilar artery, and posterior cerebral arteries are pat ent. Distal internal carotid arteries, middle cerebral arteries, anterior cerebral arteries are paten t. No large vessel occlusion. No stenosis or aneurysm. Impression: High-grade (95%) stenosis of the proximal right internal carotid artery. No other significant vascular abnormality seen. 6 mm noncalcified right upper lobe pulmonary nodule. According to Fleischner Society criteria, for a low-risk patient, perform 6-12 month follow-up CT, then consider 18-[address] For a high-risk fabiola ent, follow-up CT scans at both 6-12 months and 18-24 months, are recommended. Moderate to advanced emphysema. Reviewed, dictated and finalized at location M. Impression: High-grade (95%) stenosis of the proximal right internal carotid artery. No other significant vascular abnormality seen. 6 mm noncalcified right upper lobe pulmonary nodule. According to Fleischner So ciety criteria, for a low-risk patient, perform 6-12 month follow-up CT, then c onsider 18-[address] For a high-risk patient, follow-up CT scans at both 6-1 2 months and 18-24 months, are recommended. Moderate to advanced emphysema.
--- NOTE | ~2023-02-28 | CT_ITS ---
Non-contrast Head CT History: CVA Technique: Axial non-contrast imaging of the brain was performed. Dose reduction technique was used on this scan by utilizing automated exposure control and iterative reconstruction technique. The dose -length product (DLP) was 605.33 mGy-cm. Findings: There is no evidence of intracranial hemorrhage, mass lesion, or acute infarct. Brain par enchyma appears normal. The ventricles and subarachnoid spaces are normal in size. The calvarium ap pears normal. The visualized paranasal sinuses and mastoid air cells are clear. Impression: No significant abnormality seen. Case discussed with Dr. Iraheta at 7:47 PM on 02/28/2023. Reviewed, dictated and finalized at location . Impression: No significant abnormality seen. Case discussed with Dr. Iraheta at 7:47 PM on 02/28/2023.
--- NOTE | ~2023-02-28 | XR_ITS ---
EXAMINATION: XR chest 1V INDICATION: Left arm weakness TECHNIQUE: AP view of the chest is obtained. COMPARISON: 10/01/2022 FINDINGS: The lungs are free of acute opacities. No pleural effusion or pneumothorax. The cardiomedia stinal silhouette is normal. There are partially imaged surgical changes in the lower cervical spine. IMPRESSION: 1. No acute cardiopulmonary abnormality. Reviewed, dictated and finalized at location A.
[2023-02-28 19:32] LABS: Glucose Point of Care 131 mg/dl (65-105)
--- NOTE | 2023-02-28 19:35 | ECG_ITS ---
Measurements Intervals [place] Rate: 71 P: 37 MN: 128 QRS: 59 QRSD: 82 T: 62 QT: 374 QTc: 408 Interpretive Statements SINUS RHYTHM WITH OCCASIONAL SUPRAVENTRICULAR PREMATURE COMPLEXES COMPARED TO ECG 10/01/2022 23:05:36 SINUS RHYTHM NOW PRESENT Electronically Signed On 03-01-2023 13:47:39 CDT by Hattie Bro M.D.
--- NOTE | 2023-02-28 19:37 | ED.GENADULT ---
HPI - General Adult General Chief complaint: Neuro Symptoms/Deficit Stated complaint: neuro deficits Time Seen by Provider: 02/28/23 19:34 History of Present Illness HPI narrative: Patient 72-year-old gentleman who presents the emergency department with chief complaint of strokelike symptoms. The patient reports that around 10 AM he was at [facility] and noticed that his left arm stopped working patient states the symptoms did improve and then reports that he was back home and then around 3 PM he noticed that he had some difficulty with his speech and noticed that his left arm was not working again incidentally the patient reports that he had an episode similar to this back on patient reports has been told that he had an irregular heartbeat in the past but does not report history of atrial fibrillation. Patient denies chest pain denies shortness of breath Related Data Home Medications Medication Instructions Recorded Confirmed albuterol sulfate 90 mcg/actuation 2 puff inhalation .4/-6hrs PRN 12/17/20 10/02/22 aerosol inhaler Shortness Of Breath amlodipine 5 mg tablet (Norvasc) 5 mg PO .q-hs 12/17/20 10/02/22 cyclobenzaprine 10 mg tablet 10 mg PO TID 12/17/20 10/02/22 lisinopril 40 mg tablet (Zestril) 40 mg PO DAILY 12/17/20 10/02/22 omeprazole magnesium 20 mg 20 mg PO DAILY 12/17/20 10/02/22 tablet,delayed release (Prilosec OTC) simvastatin 40 mg tablet (Zocor) 40 mg PO QHS 12/17/20 10/02/22 metformin 1,000 mg tablet 1,000 mg PO BID 12/20/20 10/02/22 Allergies Allergy/AdvReac Type Severity Reaction Status Date / Time No Known Allergies Allergy Verified 10/01/22 23:33 Review of Systems Review of Systems: A 10 system review of systems was completed on the patient and is negative except for what is stated in the HPI. Nursing and ancillary documentation was reviewed. [facility] Past Medical History Medical History COPD (chronic obstructive pulmonary disease) Diabetes Hypertension Surgical History Surgical History H/O neck surgery History of hip surgery Previous back surgery Social History Social History Social History: current smoker Smoking packs per day: 0.75 Smoking cigarettes per day: 15.0 Smoking status: Current every day smoker Tobacco type: cigarettes Alcohol intake: never Substance use: former Substance use type: does not use Lack of Transportation: No Lack of Food: Never True Current Housing: I Have Housing Concerned About Future Housing: No Difficulty Paying Gas/Electric Bills: No Difficulty Paying for Meds: YES Currently Unemployed: No Education: High School Diploma/GED Difficulty w/ Childcare or Family Care: No Living arrangements: alone Occupation/Education: retired Spiritual care concerns: No Exam Narrative: GENERAL: Well-appearing, well-nourished, and in no acute distress. HEAD: Normocephalic, atraumatic. EYES: PERRLA and EOMI. ENT: Nares clear, no rhinorrhea or epistaxis. Mucous membranes moist. NECK: Supple. CHEST: Clear to auscultation. No respiratory distress. HEART: Regular rate and rhythm. No murmur heard. Normal peripheral pulses. ABDOMEN: Soft, nontender, nondistended, normal active bowel sounds. EXTREMITIES: Normal range of motion. No edema. SKIN: Warm, dry, no rash. NEURO: No focal deficits. Alert and oriented x3. PSYCH: Normal mood and affect. Course Vital Signs Vital signs: Vital Signs Temperature 37.0 C 02/28/23 19:43 Pulse Rate 79 02/28/23 19:43 Respiratory Rate 20 02/28/23 19:43 Blood Pressure 164/84 H 02/28/23 19:43 Pulse Oximetry 99 02/28/23 19:43 Oxygen Delivery Room Air 02/28/23 19:43 Temperature 37.0 C 02/28/23 19:43 Pulse Rate 74 02/28/23 21:26 Respiratory Rate 16 02/28/23
[2023-02-28 20:01] LABS: Basophils Percent Auto 0.2 % (0.2-1.2); Eosinophils Absolute Auto 0.1 K/mm3 (0-0.3); Eosinophils Percent Auto 1.4 % (0-4.4); Hematocrit 47.8 % (42.0-52.0); Hemoglobin 16.1 g/dL (14.0-18.0); Immature Granulocyte Absolute 0.01 K/mm3 (0.00-0.031); Immature Granulocyte Percent A 0.1 % (0-0.5); Lymphocytes Absolute Auto 2.61 K/mm3 (0.9-3.2); Lymphocytes Percent Auto 30.6 % (18.3-44.2); Mean Corpuscular HGB Conc 33.7 g/dl (32-36); Mean Corpuscular Hemoglobin 30.4 pg (26-34); Mean Corpuscular Volume 90.4 fl (80-100); Mean Platelet Volume 8.8 fl (7.4-10.4); Monocytes Absolute Auto 0.6 K/mm3 (0.1-0.6); Monocytes Percent Auto 7.4 % (2.6-8.5); Neutrophils Absolute Auto 5.1 K/mm3 (1.3-6.7); Neutrophils Percent Auto 60.3 % (45.5-73.1); Platelet Count Result 278 k/mm3 (150-375); Red Blood Count 5.29 M/mm3 (4.6-6.20); Red Cell Distribution Width 13.6 % (11.5-14.5); White Blood Count 8.5 K/mm3 (4.5-10.0)
[2023-02-28 20:12] LABS: Estimated CRCL calculation 51 ml/min; Estimated Glomerular Filt Rate > 60
[2023-02-28 20:19] LABS: INR 0.9; Lactic Acid Reflex 1.2 mmol/L (0.7-2.0); Partial Thromboplastin Time 33.2 SECONDS (22.3-36.8); Prothrombin Time 13.1 Seconds (11.1-14.7)
[2023-02-28 20:21] LABS: Alanine Aminotransferase 21 U/L (6-50); Albumin Level 4.5 g/dL (3.5-5.1); Alkaline Phosphatase 154 U/L (38-126); Anion Gap 9 mmol/L (8-16); Aspartate Amino Transferase 22 U/L (17-59); Bilirubin,Total 0.7 mg/dL (0.2-1.3); Blood Urea Nitrogen 17 mg/dL (9-20); Calcium 9.3 mg/dL (8.4-10.2); Carbon Dioxide 25 mmol/L (22-30); Chloride 105 mmol/L (98-107); Estimated CRCL calculation 56 ml/min; Estimated Glomerular Filt Rate > 60; Glucose 124 mg/dL (65-110); Magnesium 1.8 mg/dL (1.6-2.3); Potassium 3.9 mmol/L (3.4-5.0); Sodium 139 mmol/L (137-145)
[2023-02-28 20:27] LABS: Ethanol < 10 mg/dL (<10)
[2023-02-28 20:32] LABS: Troponin I < 0.012 ng/mL (0.000-0.034)
[2023-02-28 21:08] LABS: Barbiturate Screen Urine Negative (Negative); Benzodiazepines Screen Urine Negative (Negative)
[2023-02-28 21:34] LABS: Amphetamine Screen Urine Negative (Negative); Cannabinoid Screen Urine Positive (Negative); Cocaine Screen Urine Negative (Negative); Methadone Screen Urine Negative (Negative); Opiate Screen Urine Negative (Negative); Phencyclidine Screen Urine Negative (Negative)
[2023-02-28 23:13] LABS: Troponin I < 0.012 ng/mL (0.000-0.034)
--- NOTE | 2023-02-28 23:25 | PC.NURSE ---
PATIENT ACCEPTED AT [facility] (DR. AMEZCUA, NEURO). WAITING ON BED.
[2023-03-01] VITALS (29 sets, daily range): BP systolic 120–157; BP diastolic 58–111; PULSE 66–86; RESP 12–25; O2SAT 93–100
--- NOTE | 2023-03-01 07:35 | PC.NURSE ---
Pt. got a hospital bed
--- NOTE | 2023-03-01 12:51 | PC.NURSE ---
RN Spoke with Mai from [facility] transfer and gave her up dated vitals. Pt still waiting for a bed at this time.
--- NOTE | 2023-03-01 13:10 | PC.NURSE ---
Spoke with Dr. Mata. states pt my eat at this time. called for angelique
[2023-03-01 19:30] LABS: Glucose Point of Care 207 mg/dl (65-105)
--- NOTE | 2023-03-01 19:45 | ECG_ITS ---
Measurements Intervals [place] Rate: 76 P: 56 [place]: 131 QRS: 66 QRSD: 82 T: 59 QT: 351 QTc: 396 Interpretive Statements SINUS RHYTHM WITH FREQUENT APCS NONSPECIFIC T-WAVE ABNORMALITY COMPARED TO ECG 02/28/2023 19:45:35 NO DIFFERENCE Electronically Signed On 03-05-2023 15:28:05 CDT by Venancio Lopez M.D.
--- NOTE | 2023-03-01 20:15 | PC.NURSE ---
Pt ambulated to bathroom and back to exam room with standby assist. Pt reports history of COPD and is requesting breathing treatment. Dr. Iraheta notified.
[2023-03-01] MEDS: IPRATROPIUM BR 0.02% INH SOLN 0.5 MG/2.5 ML VIAL INHALATION (20:33)
[2023-03-01] MEDS: ALBUTEROL SULFATE NEB 2.5 MG/3 ML INH INHALATION (20:34)
[2023-03-01] MEDS: PANTOPRAZOLE 40 MG TABLET PO (21:18)
[2023-03-01] MEDS: rOPINIRole HCL 0.5 MG TABLET PO (21:18)
--- NOTE | 2023-03-01 22:45 | PC.NURSE ---
[facility] called for updates. Still no bed at this time.
[2023-03-02] VITALS (9 sets, daily range): BP systolic 122–154; BP diastolic 65–135; PULSE 68–88; RESP 16–18; TEMP 37.1; O2SAT 95–100
--- NOTE | 2023-03-02 09:31 | PC.NURSE ---
RN spoke with Kathy from pt placement to give her up dated vitals. Kathy states that there are still no beds available at this time. [place] placement number is [phone]
[2023-03-02] MEDS: FLUTICASONE/UMECLIDIN/VILANTER 100-62.5-25 MCG ELLIPTA 1 PUFF INHALATION (09:46)
[2023-03-02] MEDS: lisinopriL 20 MG TABLET 40 MG PO (09:57)
[2023-03-02] MEDS: SIMVASTATIN 20 MG TABLET 40 MG PO (09:57)
--- NOTE | 2023-03-02 13:45 | PC.NURSE ---
Pt has left the floor with security and two techs to get a shower.
--- NOTE | 2023-03-02 14:22 | PC.NURSE ---
Pt has returned from his shower.
--- NOTE | 2023-03-02 19:50 | PC.NURSE ---
Addendum entered by Casandra Oconnor 03/02/23 23:06: SPOKE TO ZACH AT [facility]. INFORMED THEM PATIENT WAS ACCEPTED AT [facility], AND A BED IS AVAILABLE. PATIENT TAKEN OFF [facility] WAITLIST. Original Note: Spoke to Marisel at the [facility]. All [facility] facilities have waitlists. [facility] and [facility] have the neuro services patient requires, but [place] is the most appropriate for the surgery he will/may require. They will let us know if anything becomes available at the most appropriate [facility] facility.
--- NOTE | 2023-03-02 21:10 | ECG_ITS ---
Measurements Intervals [place] Rate: 69 P: 58 [place]: 133 QRS: 41 QRSD: 81 T: 50 QT: 360 QTc: 387 Interpretive Statements SINUS RHYTHM WITH FREQUENT APCS NONSPECIFIC T-WAVE ABNORMALITY COMPARED TO ECG 03/01/2023 19:45:03 NO DIFFERENCE Electronically Signed On 03-05-2023 15:30:22 CDT by Venancio Lopez M.D.
[2023-03-02] MEDS: rOPINIRole HCL 0.5 MG TABLET PO (21:37)
[2023-03-02] MEDS: CLOPIDOGREL BISULFATE 300 MG TABLET PO (21:42)
--- NOTE | 2023-03-02 22:03 | PC.NURSE ---
Addendum entered by Casandra Oconnor 03/02/23 23:07: SPOKE TO WANDER AT [facility]. INFORMED THEM THAT PATIENT HAS BEEN ACCEPTED AT [facility] AND BED WAS AVAILABLE. PATIENT TAKEN OFF WAITLIST AT [facility]. Original Note: Patient has also been accepted to [facility]. Placed on waitlist for a bed.
--- NOTE | 2023-03-02 23:05 | PC.NURSE ---
2121: Patient accepted to [facility]. BED AVAILABLE AT 2226.
[2023-03-02] MEDS: ASPIRIN 325 MG TABLET PO (23:37)
[2023-03-03 00:29] VITALS: BP 153/75; PULSE 75; RESP 15; O2SAT 97
[2023-03-03 03:25] VITALS: BP 129/100; PULSE 97; RESP 17; TEMP 36.4; O2SAT 95
== END 2023-03-03 03:27 | disposition short-term general hospital (02) ==
PROVIDERS: Emergency Provider Emergency Medicine; PCP Internal Medicine
DX: I65.21 Occlusion and stenosis of right carotid artery (principal); J44.9 Chronic obstructive pulmonary disease, unspecified; E11.9 Type 2 diabetes mellitus without complications; I10 Essential (primary) hypertension; F17.210 Nicotine dependence, cigarettes, uncomplicated; R91.1 Solitary pulmonary nodule; I49.1 Atrial premature depolarization; Z79.899 Other long term (current) drug therapy; Z79.84 Long term (current) use of oral hypoglycemic drugs; Z79.4 Long term (current) use of insulin
CPT/HCPCS: 36415; 70450; 70496; 70498; 71045; 80053; 80307; 82948; 83605; 83735; 84484; 85025; 85610; 85730; 93005; 94640; 99285; A9270; Q9967

== ENCOUNTER 2023-11-24 14:58 | Emergency (ER) | payer MEDICARE, SELFPAY ==
[2023-11-24 15:01] VITALS: BP 187/92; PULSE 87; RESP 20; TEMP 36.3; O2SAT 99
--- NOTE | 2023-11-24 15:24 | ED.GENADULT ---
HPI - General Adult General Chief complaint: Allergic Reaction Stated complaint: allergic reaction Time Seen by Provider: 11/24/23 15:05 Source: patient Mode of arrival: ambulatory Limitations: no limitations History of Present Illness HPI narrative: This is a 73-year-old male who presents to the ED with chief complaint of spreading rash for the past 3 days. Reports rash started on the hands and has since spread to the forehead, bilateral ears and legs. 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 He is unsure of any specific insect bite. He was working with his grandson who has not exhibited any of the same symptoms. No known allergies. No known exposures to new medications detergents or soaps. He has been trying lotions without any relief. Has not tried Benadryl or any other medication. Denies fevers, chills, abdominal pain, chest pain, shortness of breath, cough. Related Data Home Medications Medication Instructions Recorded Confirmed omeprazole magnesium 20 mg 20 mg PO DAILY 12/17/20 10/22/23 tablet,delayed release (Prilosec OTC) metformin 1,000 mg tablet 1,000 mg PO BID 12/20/20 10/22/23 calcitriol 0.25 mcg capsule 0.25 mcg PO DAILY 10/22/23 10/22/23 dapagliflozin propanediol 10 mg 10 mg PO DAILY 10/22/23 10/22/23 tablet (Farxiga) rosuvastatin 40 mg tablet 40 mg PO DAILY 10/22/23 10/22/23 Allergies Allergy/AdvReac Type Severity Reaction Status Date / Time No Known Allergies Allergy Verified 10/22/23 13:55 Review of Systems Review of Systems: All systems as dictated in [facility] Past Medical History Medical History COPD (chronic obstructive pulmonary disease) Diabetes Hypertension Surgical History Surgical History H/O neck surgery History of hip surgery Previous back surgery Social History Social History (Updated 10/22/23 @ 14:03 by LEE Mckeon) Social History: current smoker Smoking packs per day: 0.75 Smoking cigarettes per day: 15.0 Smoking status: Former smoker Tobacco type: cigarettes Alcohol intake: never Substance use: former Substance use type: does not use Do You Feel Safe in your Home?: Yes Lack of Transportation: No Lack of Food: Never True Current Housing: I Have Housing Concerned About Future Housing: No Difficulty Paying Gas/Electric Bills: No Difficulty Paying for Meds: YES Currently Unemployed: No Education: High School Diploma/GED Difficulty w/ Childcare or Family Care: No Living arrangements: alone Occupation/Education: retired Spiritual care concerns: No Exam Narrative: GENERAL: Well-appearing, well-nourished, and in no acute distress. HEAD: Normocephalic, atraumatic. EYES: PERRLA and EOMI. ENT: Nares clear, no rhinorrhea or epistaxis. Mucous membranes moist. Oropharynx without tonsillar hypertrophy exudate or other lesions. Airway intact NECK: Supple. No adenopathy or masses. CHEST: No respiratory distress. Clear to auscultation. No wheezes rales or rhonchi. HEART: Regular rate and rhythm. No murmur heard. Normal peripheral pulses. ABDOMEN: Soft, nontender, nondistended, normal active bowel sounds. MSK: Normal range of motion. No edema. SKIN: Warm, dry, no rash. Scattered macular papular rash to the dorsal hands, thighs, bilateral face. No palmar involvement. No tenderness or warmth. NEURO: Alert and oriented x3. No focal deficits. PSYCH: Normal mood and affect. Course Vital Signs Vital signs: Vital Signs Temperature 97.3 F L 11/24/23 15:01 Pulse Rate 87 11/24/23 15:01 Respiratory Rate 20 11/24/23 15:01 Blood Pressure 187/92 H 11/24/23 15:01 Pulse Oximetry 99 11/24/23 15:01 Oxygen Delivery Room Air 11/24/23 15:01 Temperature 98.0 F 11/24/23 16:03 Pulse Rate 68 11/24/23 16:03 Respiratory Rate 17 11/24/23 16:03
[2023-11-24 15:40] VITALS: O2SAT 100
[2023-11-24 16:03] VITALS: BP 141/83; PULSE 68; RESP 17; TEMP 36.7; O2SAT 100
== END 2023-11-24 16:04 | disposition home or self-care (01) ==
PROVIDERS: Emergency Provider Physician Assistant; PCP Internal Medicine
DX: T78.40XA Allergy, unspecified, initial encounter (principal); J44.9 Chronic obstructive pulmonary disease, unspecified; I10 Essential (primary) hypertension; E11.9 Type 2 diabetes mellitus without complications; Z87.891 Personal history of nicotine dependence; X58.XXXA Exposure to other specified factors, initial encounter
CPT/HCPCS: 99283

== ENCOUNTER 2024-05-26 17:03 | Inpatient (IN) | payer MEDICARE, SELFPAY ==
[2024-05-26] VITALS (25 sets, daily range): BP systolic 143–171; BP diastolic 83–120; PULSE 92–119; RESP 14–24; TEMP 36.3–37; O2SAT 92–100; BMI 22.6
--- NOTE | ~2024-05-26 | XR_ITS ---
EXAMINATION: XR chest 2V Exam Date/Time: 05/26/2024 17:20 CDT HISTORY: SOB, hx of COPD Comparison: None. RESULT: Lines, tubes, and devices: Partially visualized ACDF hardware. Lungs and pleura: Reticulonodular opacities in the mid right lung. Senescent changes. Cardiomediastinal silhouette: Unremarkable. Other: No acute osseous or upper abdominal finding. IMPRESSION: Right mid lung opacities could represent a focus of atypical infection or aspiration in the appropria te clinical context. Reviewed, dictated and finalized at location K. IMPRESSION: Right mid lung opacities could represent a focus of atypical infection or aspir ation in the appropriate clinical context.
--- NOTE | ~2024-05-26 | XR_ITS ---
Portable chest x-ray Comparison: 05/26/2024 Clinical History: Pneumonia Findings: Lungs are clear, without focal consolidation or pleural effusion. Cardiomediastinal silho uette is stable. Bones and soft tissues are unremarkable. Impression: Clear lungs. Reviewed, dictated and finalized at location . Impression: Clear lungs.
--- NOTE | 2024-05-26 17:18 | ED.SOB ---
HPI - SOB/Dyspnea General Chief Complaint: Shortness of Breath/Dyspnea <Cassidy Parks PA-C - Last Filed: 05/28/24 10:41> Stated Complaint: shortness of breath <Cassidy Parks PA-C - Last Filed: 05/28/24 10:41> Time Seen by Provider: 05/26/24 17:18 <Cassidy Parks PA-C - Last Filed: 05/28/24 10:41> Focused HPI: This is a 74 year old male that presents to the ER for shortness of breath. History of COPD. Reports wheezing. Reports recently being admitted for same. Denies fevers. GENERAL: Well-appearing, well-nourished, and in no acute distress. HEAD: Normocephalic, atraumatic. CHEST: Clear to auscultation. ?No respiratory distress. HEART: Regular rate and rhythm.? NEURO: ?Alert and oriented x3. Patient screened in triage and initial orders placed.? ?Additional care and disposition to be based upon?diagnostic testing and treatment. <Cassidy Parks PA-C - Last Filed: 05/28/24 10:41> History of Present Illness HPI Narrative: Patient is a 74-year-old male who presents ER with shortness of breath. Recently admitted at [facility] for a night with COPD exacerbation. He had been on azithromycin as well. Reports persistent cough dyspnea. Decreased ability to exert himself or go outside which he typically does. No chest pain chest pressure. Reports he has had green mucus come up from his lungs in out his nose. Was sent here from his PCP's office by ambulance due to inability to breathe. <Triston Moreland MD - Last Filed: 05/26/24 21:58> Related Data Home Medications: Home Medications Medication Instructions Recorded Confirmed omeprazole magnesium 20 mg 20 mg PO DAILY 12/17/20 10/22/23 tablet,delayed release (Prilosec OTC) metformin 1,000 mg tablet 1,000 mg PO BID 12/20/20 10/22/23 calcitriol 0.25 mcg capsule 0.25 mcg PO DAILY 10/22/23 10/22/23 dapagliflozin propanediol 10 mg 10 mg PO DAILY 10/22/23 10/22/23 tablet (Farxiga) rosuvastatin 40 mg tablet 40 mg PO DAILY 10/22/23 10/22/23 albuterol sulfate 90 mcg/actuation 2 puff inhalation Q6H PRN 05/26/24 05/26/24 aerosol inhaler (Ventolin HFA) Shortness Of Breath Or Wheezing atorvastatin 40 mg tablet 40 mg PO DAILY 05/26/24 05/26/24 calcitriol 0.25 mcg capsule 0.25 mcg PO EVERY OTHER DAY 05/26/24 05/26/24 chlorthalidone 25 mg tablet 25 mg PO DAILY 05/26/24 05/26/24 empagliflozin 10 mg tablet 10 mg PO DAILY 05/26/24 05/26/24 (Jardiance) ergocalciferol (vitamin D2) 1,250 1,250 mcg PO WEEKLY 05/26/24 05/26/24 mcg (50,000 unit) capsule fluticasone fur. 200 mcg-umeclid 1 inh inhalation DAILY 05/26/24 05/26/24 62.5 mcg-vilant 25 mcg inhalat.powder (Trelegy Ellipta) losartan 50 mg tablet 50 mg PO DAILY 05/26/24 05/26/24 metformin 500 mg tablet,extended 500 mg PO BID 05/26/24 05/26/24 release 24 hr methocarbamol 750 mg tablet 750 mg PO TID PRN muscle spasms 05/26/24 05/26/24 metoprolol succinate 50 mg 50 mg PO DAILY 05/26/24 05/26/24 tablet,extended release 24 hr omeprazole 40 mg capsule,delayed 40 mg PO HS 05/26/24 05/26/24 release pregabalin 75 mg capsule 75 mg PO BID 05/26/24 05/26/24 <Cassidy Parks PA-C - Last Filed: 05/28/24 10:41> Allergies/Adverse Reactions: Allergies Allergy/AdvReac Type Severity Reaction Status Date / Time No Known Allergies Allergy Verified 05/27/24 11:40 <Cassidy Parks PA-C - Last Filed: 05/28/24 10:41> Review of Systems Review of Systems: All systems reviewed & are unremarkable except as noted in HPI and below <Triston Moreland MD - Last Filed: 05/26/24 21:58> Constitutional: Constitutional: Reports no additional constitutional complaints <Triston Moreland MD - Last Filed: 05/26/24 21:58> ENT: Reports system reviewed and no additional complaints, except as documented <Triston Moreland MD - Last Filed: 05/26/24 21:58> Cardiovascular: Cardiovascular: Reports no additional cardiovascular complaints <Triston Moreland MD - Last Filed: 05/26/24 21:58> Respiratory:
[2024-05-26 18:14] LABS: Basophils Percent Auto 0.3 % (0.2-1.2); Eosinophils Absolute Auto 0.1 K/mm3 (0-0.3); Eosinophils Percent Auto 0.5 % (0-4.4); Hematocrit 47.6 % (42.0-52.0); Hemoglobin 16.3 g/dL (14.0-18.0); Immature Granulocyte Absolute 0.07 K/mm3 (0.00-0.031); Immature Granulocyte Percent A 0.6 % (0-0.5); Lymphocytes Absolute Auto 2.08 K/mm3 (0.9-3.2); Lymphocytes Percent Auto 18.9 % (18.3-44.2); Mean Corpuscular HGB Conc 34.2 g/dl (32-36); Mean Corpuscular Hemoglobin 30.8 pg (26-34); Mean Corpuscular Volume 89.8 fl (80-100); Mean Platelet Volume 9.6 fl (7.4-10.4); Monocytes Absolute Auto 0.5 K/mm3 (0.1-0.6); Monocytes Percent Auto 4.2 % (2.6-8.5); Neutrophils Absolute Auto 8.3 K/mm3 (1.3-6.7); Neutrophils Percent Auto 75.5 % (45.5-73.1); Platelet Count Result 298 k/mm3 (150-375); Red Cell Distribution Width 13.3 % (11.5-14.5)
[2024-05-26 18:16] LABS: Influenza A QL RT-PCR Negative (Negative); Influenza B QL RT-PCR Negative (Negative); RSV RNA, RT-PCR Negative (Negative); SARS-CoV-2 RNA PCR Negative (Negative)
[2024-05-26] MEDS: IPRATROPIUM BR 0.02% INH SOLN 0.5 MG/2.5 ML VIAL 1.5 MG INHALATION (18:19)
[2024-05-26] MEDS: ALBUTEROL SULFATE NEB 2.5 MG/3 ML INH 15 MG INHALATION (18:19)
[2024-05-26 18:24] LABS: Partial Thromboplastin Time 29.6 Seconds (22.3-36.8); Prothrombin Time 13.5 Seconds (11.1-14.7)
[2024-05-26 18:46] LABS: Alanine Aminotransferase 31 U/L (6-50); Albumin Level 4.5 g/dL (3.5-5.1); Alkaline Phosphatase 138 U/L (38-126); Anion Gap 13 mmol/L (4-12); Aspartate Amino Transferase 24 U/L (17-59); Bilirubin,Total 1.1 mg/dL (0.2-1.3); Blood Urea Nitrogen 24 mg/dL (9-20); Carbon Dioxide 25 mmol/L (22-30); Chloride 96 mmol/L (98-107); Estimated Glomerular Filt Rate > 60; Glucose 391 mg/dL (65-110); Potassium 4.1 mmol/L (3.4-5.0); Sodium 134 mmol/L (137-145)
--- NOTE | 2024-05-26 20:12 | PM.IMHP ---
H&P: HPI History of Present Illness Date/Time: 05/26/24 20:12 Chief Complaint: sob Narrative: This is a 74-year-old male with past medical history significant for tobacco dependence, patient quit 2 years ago, COPD/emphysema, hypertension, type 2 diabetes mellitus, dyslipidemia. Patient presents to the emergency room due to worsening shortness of breath cough initially dry has turned productive of green copious amount of secretions, patient completed course of antibiotics and oral steroids in the outpatient setting however symptoms did not go away and turned worse, night sweats, chills. Today in the emergency room preliminary workup was significant for chest x-ray with infiltrate EXAMINATION: XR chest 2V Exam Date/Time: 05/26/2024 17:20 CDT HISTORY: SOB, hx of COPD Comparison: None. RESULT: Lines, tubes, and devices: Partially visualized ACDF hardware. Lungs and pleura: Reticulonodular opacities in the mid right lung. Senescent changes. Cardiomediastinal silhouette: Unremarkable. Other: No acute osseous or upper abdominal finding. IMPRESSION: Right mid lung opacities could represent a focus of atypical infection or aspiration in the appropriate clinical context. Review of Systems Review of Systems: sob [facility] Past Medical History Medical History (Updated 05/28/24 @ 10:41 by Cassidy Parks PA-C) COPD (chronic obstructive pulmonary disease) COPD (chronic obstructive pulmonary disease) Diabetes Diabetes Hyperlipidemia Hypertension Hypertension Surgical History Surgical History (Updated 05/27/24 @ 11:40 by Km Velazquez) H/O neck surgery History of hip surgery No pertinent past surgical history Previous back surgery Family History Family History (System 05/27/24 @ 11:40 by Km Velazquez) Mother Acute myocardial infarction Congestive heart failure Chronic obstructive pulmonary disease Hypertension Asthma Sibling History of blood clots Cerebrovascular accident Colon cancer Social History Social History (System 05/27/24 @ 11:40 by Km Velazquez) Social History: current smoker Smoking packs per day: 1 Smoking cigarettes per day: 20.0 Years smoked: 40 Smoking pack-years: 40.00 Smoking status: Former smoker Tobacco type: cigarettes Alcohol intake: never Substance use: never Substance use type: does not use Do You Feel Safe in your Home?: Yes Lack of Transportation: No Lack of Food: Never True Current Housing: I Have Housing Concerned About Future Housing: No Difficulty Paying Gas/Electric Bills: No Difficulty Paying for Meds: YES Currently Unemployed: No Education: High School Diploma/GED Difficulty w/ Childcare or Family Care: No Living arrangements: alone Occupation/Education: retired Spiritual care concerns: No Meds Home Medications and Allergies Home Medications Medication Instructions Recorded Confirmed Type ropinirole 0.5 mg tablet See Rx Instructions .Route 04/28/21 05/29/24 Rx .COMPLEX #30 tabs diphenhydramine HCl 25 mg capsule 25 mg PO BID PRN itching #20 caps 11/24/23 05/29/24 Rx albuterol sulfate 90 mcg/actuation 2 puff inhalation Q6H PRN 05/26/24 05/26/24 History aerosol inhaler (Ventolin HFA) Shortness Of Breath Or Wheezing atorvastatin 40 mg tablet 40 mg PO DAILY 05/26/24 05/26/24 History calcitriol 0.25 mcg capsule 0.25 mcg PO EVERY OTHER DAY 05/26/24 05/26/24 History chlorthalidone 25 mg tablet 25 mg PO DAILY 05/26/24 05/26/24 History empagliflozin 10 mg tablet 10 mg PO DAILY 05/26/24 05/26/24 History (Jardiance) ergocalciferol (vitamin D2) 1,250 1,250 mcg PO WEEKLY 05/26/24 05/26/24 History mcg (50,000 unit) capsule fluticasone fur. 200 mcg-umeclid 1 inh inhalation DAILY 05/26/24 05/26/24 History 62.5 mcg-vilant 25 mcg inhalat.powder (Trelegy Ellipta) losartan 50 mg tablet 50 mg PO DAILY 05/26/24 05/26/24 History metformin 500 mg tablet,extended 500 mg PO BID
--- NOTE | 2024-05-26 22:06 | ADMGEN ---
This patient, Navid Rodríguez, was admitted to Medical Room 348-01. Patient/family oriented to hospital policies and general routines including ID bracelet, bed and alarms, visiting hours, pain management, procedures, bathroom and other care routines, personal items, smoking policy, room service/diet, and visiting hours. Information on how to activate the Rapid Response Team has been discussed. Patient/Family are encouraged to report perceived risks to care and to ask questions if they do not understand what they are told or what they should do.
[2024-05-26] MEDS: INSULIN ASPART (*BKC) 100 UNITS/ML 10 UNITS SUB-Q (22:58)
[2024-05-26] MEDS: HYDROcodone/acetaminophen (*CRX) 5-325 MG TABLET 1 TAB PO (22:59)
[2024-05-26] MEDS: AZITHROMYCIN 500 MG/NS 250 ML 500 MG/250 ML BAG 250 MG IVPB (22:59)
[2024-05-27] VITALS (25 sets, daily range): BP systolic 116–151; BP diastolic 61–80; PULSE 68–109; RESP 18–20; TEMP 35.6–36.8; O2SAT 92–100
[2024-05-27 00:18] LABS: Glucose Point of Care > 500 mg/dl (65-105)
[2024-05-27 00:18] LABS: Glucose Point of Care > 500 mg/dl (65-105)
[2024-05-27] MEDS: INSULIN ASPART (*BKC) 100 UNITS/ML 10 UNITS SUB-Q (00:18)
[2024-05-27] MEDS: INSULIN HUMAN REGULAR (*BKC) 100 UNITS/ML 12 UNITS SUB-Q (00:33)
--- NOTE | 2024-05-27 00:54 | PC.NURSE ---
Patient arrived from 348 to 213 05/27/24 0055. This RN assuming care. Report received.
[2024-05-27 01:24] LABS: Glucose Point of Care > 500 mg/dl (65-105)
[2024-05-27] MEDS: ALBUTEROL SULFATE NEB 2.5 MG/3 ML INH INHALATION ×2 (01:29→07:17)
[2024-05-27] MEDS: IPRATROPIUM BR 0.02% INH SOLN 0.5 MG/2.5 ML VIAL INHALATION ×2 (01:29→07:17)
[2024-05-27] MEDS: methylPREDNISolone SOD SUCC 125 MG VIAL 60 MG IV PUSH ×5 (01:45→23:40)
[2024-05-27] MEDS: INSULIN HUMAN REGULAR (*BKC) 100 UNITS/ML 18 UNITS IV PUSH ×2 (01:45→02:45)
[2024-05-27] MEDS: EMPAGLIFLOZIN 10 MG TABLET PO ×2 (01:46→08:01)
[2024-05-27 02:42] LABS: Glucose Point of Care > 500 mg/dl (65-105)
[2024-05-27] MEDS: HYDROcodone/acetaminophen (*CRX) 5-325 MG TABLET 1 TAB PO (02:51)
[2024-05-27 03:54] LABS: Glucose Point of Care 387 mg/dl (65-105)
[2024-05-27] MEDS: methocarbamoL 750 MG TABLET PO ×2 (04:04→18:39)
[2024-05-27] MEDS: ACETAMINOPHEN 325 MG TABLET 650 MG PO ×2 (04:04→18:38)
[2024-05-27 06:04] LABS: Glucose Point of Care 222 mg/dl (65-105)
[2024-05-27 07:53] LABS: Glucose Point of Care 213 mg/dl (65-105)
[2024-05-27] MEDS: METOPROLOL SUCCINATE EXT REL 50 MG TABCR PO (08:01)
[2024-05-27] MEDS: ATORVASTATIN 40 MG TABLET PO (08:01)
[2024-05-27] MEDS: LOSARTAN POTASSIUM 50 MG TABLET PO (08:01)
[2024-05-27] MEDS: PREGABALIN (*CRX) 75 MG CAPSULE PO ×2 (08:02→15:56)
[2024-05-27] MEDS: INSULIN HUMAN REGULAR (*BKC) 100 UNITS/ML 8 UNITS SUB-Q ×3 (08:04→15:55)
[2024-05-27] MEDS: FLUTICASONE/UMECLIDIN/VILANTER 200-62.5-25 MCG ELLIPTA 1 PUFF INHALATION (08:28)
[2024-05-27 12:09] LABS: Glucose Point of Care 361 mg/dl (65-105)
[2024-05-27] MEDS: CHLORTHALIDONE 25 MG TABLET PO (12:10)
[2024-05-27] MEDS: IPRATROPIUM 0.5 MG/ALBUTEROL SULFATE 2.5 MG AMPUL.NEB 3 ML INHALATION ×2 (13:08→19:49)
--- NOTE | 2024-05-27 14:48 | PM.IMPN ---
Progress Note: A&P Assessment and Plan (1) Pneumonia: Code(s): J18.9 - Pneumonia, unspecified organism Status: Acute Assessment and Plan: Admit to IMU Continue Rocephin and Zithromax Was treated with oral antibiotics in the outpatient setting CXR:Right mid lung opacities could represent a focus of atypical infection or aspiration in the appropriate clinical context. Sputum quality is changed (2) COPD exacerbation: Code(s): J44.1 - Chronic obstructive pulmonary disease with (acute) exacerbation Status: Acute Assessment and Plan: breathing treatments (3) Uncontrolled blood glucose: Code(s): R73.09 - Other abnormal glucose Status: Acute Assessment and Plan: ISS Jardiance (4) T2DM (type 2 diabetes mellitus): Code(s): E11.9 - Type 2 diabetes mellitus without complications Status: Acute Assessment and Plan: holding Metformin (5) Hypertension: Code(s): I10 - Essential (primary) hypertension Status: Acute Assessment and Plan: resume home meds Subjective Date/time seen: 05/27/24 14:48 Interval history: Currently patient is doing well. Patient had a stroke last year in February 2023. He reports of having stent placed at right-sided carotid. Patient is currently on ceftriaxone and azithromycin and methylprednisolone. Patient has a fluctuating blood sugar in addition to the steroids and underlying diabetes. Patient today added 15 units of Lantus in addition to his sliding scale and 8 units bolus. Exam Narrative: lying in stretcher Const: General: comfortable, no acute distress, well developed, alert, awake, ill appearing and average body habitus Nutritional Appearance: average body habitus Orientation/consciousness: patient oriented x3 HENMT: Head: normal to inspection, normocephalic and atraumatic Ears: hearing grossly normal bilaterally Face/Nose/Sinus: normal facial exam Face and sinus: normal facial exam Eyes: General: appearance normal, both eyes and all related structures Pupils: Equal, round and reactive pupils present EOM: EOMs intact bilaterally Neck: Neck: full ROM, no lymphadenopathy and no JVD Thyroid: thyroid normal Lymphatic: no lymphadenopathy noted Resp: Effort & Inspection: Actively coughing Auscultation: wheezes and diminished lung sounds Cardio: Jugular venous distension: no JVD Rate: regular rate Rhythm: regular rhythm Heart sounds: S1 normal heart sound present and S2 normal heart sound present : General: Yes deferred Skin: Rashes: no rashes Wounds: no wounds Neuro: General: patient oriented x3 and CN's II-XI intact bilaterally Cranial nerves: Yes CN's II-XII intact bilaterally and Yes Equal, round and reactive pupils present Cognition (Neuro): normal cognition Speech: normal speech Gait exam (Neuro): Normal gait present Motor exam (neuro): 5/5 motor strength present throughout Extrem: General: normal to inspection, full ROM, no joint enlargement and no pedal edema Objective Data Vital Signs Vital Signs: Vital Signs - 24 hr 05/26/24 17:15 05/26/24 17:20 05/26/24 18:04 Temperature 97.4 F L Pulse Rate 100 104 H Respiratory Rate 20 23 H Blood Pressure 171/88 H 165/108 H Pulse Oximetry 96 97 Oxygen Delivery Room Air Fraction of Inspired Oxygen 05/26/24 18:06 05/26/24 18:19 05/26/24 18:24 Temperature Pulse Rate 92 Respiratory Rate 16 Blood Pressure Pulse Oximetry 95 95 Oxygen Delivery Room Air Room Air Fraction of Inspired Oxygen 05/26/24 17:21 05/26/24 17:29 05/26/24 17:30 Temperature Pulse Rate 97 96 Respiratory Rate 20 19 Blood Pressure 160/120 H Pulse Oximetry 97 98 Oxygen Delivery Fraction of Inspired Oxygen 05/26/24 17:45 05/26/24 18:00 05/26/24 18:05 Temperature Pulse Rate 94 94 95 Respiratory Rate 14 17 21 H Blood Pressure 165/108 H Pulse Oximetry 100 100 Oxygen Delivery Fraction of Inspired
[2024-05-27] MEDS: INSULIN ASPART (*BKC) 100 UNITS/ML SUB-Q ×2 (15:56→20:42)
[2024-05-27 16:34] LABS: Glucose Point of Care 428 mg/dl (65-105)
--- NOTE | 2024-05-27 16:44 | PC.NURSE ---
MD contacted to report continued high blood glucose level of 428. New orders received. See eMAR. Patient is no acute distress at this time.
[2024-05-27 20:32] LABS: Glucose Point of Care 369 mg/dl (65-105)
[2024-05-27] MEDS: INSULIN GLARGINE (*BKC) 100 UNITS/ML 15 UNITS SUB-Q (20:41)
[2024-05-27] MEDS: AZITHROMYCIN 500 MG/NS 250 ML 500 MG/250 ML BAG 250 MG IVPB (20:42)
[2024-05-27] MEDS: PANTOPRAZOLE 40 MG TABLET PO (20:42)
[2024-05-28] VITALS (24 sets, daily range): BP systolic 113–160; BP diastolic 50–93; PULSE 64–90; RESP 14–20; TEMP 36.4–36.6; O2SAT 91–100
[2024-05-28] MEDS: IPRATROPIUM 0.5 MG/ALBUTEROL SULFATE 2.5 MG AMPUL.NEB 3 ML INHALATION ×4 (02:32→20:08)
[2024-05-28 04:41] LABS: Hematocrit 42.1 % (42.0-52.0); Hemoglobin 14.3 g/dL (14.0-18.0); Mean Corpuscular Hemoglobin 30.9 pg (26-34); Mean Corpuscular Volume 90.9 fl (80-100); Mean Platelet Volume 9.7 fl (7.4-10.4); Platelet Count Result 260 k/mm3 (150-375); Red Blood Count 4.63 M/mm3 (4.6-6.20); Red Cell Distribution Width 13.7 % (11.5-14.5); White Blood Count 11.8 K/mm3 (4.5-10.0)
[2024-05-28 04:53] LABS: Alanine Aminotransferase 26 U/L (6-50); Albumin Level 4.1 g/dL (3.5-5.1); Alkaline Phosphatase 98 U/L (38-126); Anion Gap 13 mmol/L (4-12); Aspartate Amino Transferase 20 U/L (17-59); Bilirubin,Total 0.8 mg/dL (0.2-1.3); Blood Urea Nitrogen 33 mg/dL (9-20); Calcium 9.7 mg/dL (8.4-10.2); Carbon Dioxide 28 mmol/L (22-30); Chloride 94 mmol/L (98-107); Estimated CRCL calculation 45 ml/min; Estimated Glomerular Filt Rate > 60; Glucose 318 mg/dL (65-110); Potassium 4.2 mmol/L (3.4-5.0); Sodium 135 mmol/L (137-145)
[2024-05-28] MEDS: ACETAMINOPHEN 325 MG TABLET 650 MG PO (04:54)
[2024-05-28] MEDS: methylPREDNISolone SOD SUCC 125 MG VIAL 60 MG IV PUSH ×2 (04:54→21:54)
[2024-05-28] MEDS: methocarbamoL 750 MG TABLET PO (04:54)
[2024-05-28 07:35] LABS: Glucose Point of Care 437 mg/dl (65-105)
--- NOTE | 2024-05-28 07:40 | PC.NURSE ---
Updated Dr. Villanueva regarding pt's elevated blood glucose of 437. New order to administer the 8 units Novolog SQ and 8 units Regular SQ insulin, and recheck blood glucose 1 hour after administration.
[2024-05-28] MEDS: INSULIN HUMAN REGULAR (*BKC) 100 UNITS/ML 8 UNITS SUB-Q (07:47)
[2024-05-28] MEDS: ATORVASTATIN 40 MG TABLET PO (07:47)
[2024-05-28] MEDS: PREGABALIN (*CRX) 75 MG CAPSULE PO ×2 (07:47→16:37)
[2024-05-28] MEDS: LOSARTAN POTASSIUM 50 MG TABLET PO (07:47)
[2024-05-28] MEDS: METOPROLOL SUCCINATE EXT REL 50 MG TABCR PO (07:47)
[2024-05-28] MEDS: CHLORTHALIDONE 25 MG TABLET PO (07:47)
[2024-05-28] MEDS: EMPAGLIFLOZIN 10 MG TABLET PO (07:47)
[2024-05-28] MEDS: PANTOPRAZOLE 40 MG TABLET PO ×2 (07:47→21:54)
[2024-05-28] MEDS: INSULIN ASPART (*BKC) 100 UNITS/ML SUB-Q ×3 (07:48→21:54)
[2024-05-28] MEDS: FLUTICASONE/UMECLIDIN/VILANTER 200-62.5-25 MCG ELLIPTA 1 PUFF INHALATION (08:28)
--- NOTE | 2024-05-28 09:04 | PC.NURSE ---
Updated Dr. Villanueva on pt's repeat blood glucose. Result of 456. New order to obtain STAT BMP, and call with results
[2024-05-28 09:15] LABS: Glucose Point of Care 456 mg/dl (65-105)
--- NOTE | 2024-05-28 09:39 | PC.NURSE ---
Spoke with Dr. Jang regarding pt's elevated blood sugars. New orders to increase Regular insulin to 12units SQ TIDWM and to decrease Solu-Medrol IVP to q12hr for q6hr.
[2024-05-28 09:41] LABS: Anion Gap 19 mmol/L (4-12); Blood Urea Nitrogen 32 mg/dL (9-20); Carbon Dioxide 21 mmol/L (22-30); Chloride 92 mmol/L (98-107); Estimated CRCL calculation 38 ml/min; Estimated Glomerular Filt Rate 54; Glucose 448 mg/dL (65-110); Sodium 132 mmol/L (137-145)
[2024-05-28 09:42] LABS: Calcium 9.8 mg/dL (8.4-10.2)
--- NOTE | 2024-05-28 09:50 | PC.NURSE ---
Updated Dr. Villanueva of [facility] results. Blood glucose of 448. New orders received and entered by this RN
[2024-05-28] MEDS: INSULIN HUMAN REGULAR (*BKC) 100 UNITS/ML 10 UNITS IV PUSH (10:16)
[2024-05-28] MEDS: guaiFENesin 12 HR 600 MG TABCR 1200 MG PO ×2 (10:16→22:02)
[2024-05-28] MEDS: SODIUM CHLORIDE 0.9% IV 1,000 ML 999 ML IV CONT (10:21)
[2024-05-28] MEDS: INSULIN HUMAN REGULAR (*BKC) 100 UNITS/ML 12 UNITS SUB-Q ×2 (11:26→16:36)
[2024-05-28 11:33] LABS: Glucose Point of Care 217 mg/dl (65-105)
[2024-05-28 13:15] LABS: Anion Gap 18 mmol/L (4-12); Blood Urea Nitrogen 30 mg/dL (9-20); Calcium 9.7 mg/dL (8.4-10.2); Carbon Dioxide 19 mmol/L (22-30); Chloride 98 mmol/L (98-107); Estimated CRCL calculation 45 ml/min; Estimated Glomerular Filt Rate > 60; Glucose 195 mg/dL (65-110); Potassium 3.6 mmol/L (3.4-5.0); Sodium 135 mmol/L (137-145)
[2024-05-28] MEDS: POTASSIUM CHLORIDE 20 MEQ ER TABLET 40 MEQ PO (15:40)
[2024-05-28 15:48] LABS: Glucose Point of Care 169 mg/dl (65-105)
--- NOTE | 2024-05-28 16:29 | PM.IMPN ---
Progress Note: A&P Assessment and Plan (1) Pneumonia: Qualifiers: Laterality: right Lung location: middle lobe of lung Pneumonia type: due to unspecified organism Qualified Code(s): J18.9 - Pneumonia, unspecified organism Code(s): J18.9 - Pneumonia, unspecified organism Status: Acute Assessment and Plan: Admit to IMU Continue Rocephin and Zithromax Was treated with oral antibiotics in the outpatient setting CXR:Right mid lung opacities could represent a focus of atypical infection or aspiration in the appropriate clinical context. Sputum quality is changed (2) COPD exacerbation: Code(s): J44.1 - Chronic obstructive pulmonary disease with (acute) exacerbation Status: Acute Assessment and Plan: breathing treatments (3) Uncontrolled blood glucose: Code(s): R73.09 - Other abnormal glucose Status: Acute Assessment and Plan: ISS Jardiance (4) T2DM (type 2 diabetes mellitus): Code(s): E11.9 - Type 2 diabetes mellitus without complications Status: Acute Assessment and Plan: holding Metformin Lantus 15 units HS, bolus regular insulin 12 units, high-dose sliding scale Methylprednisone has been decreased from 60 mg q.6 hours to q.12 hours. (5) Hypertension: Code(s): I10 - Essential (primary) hypertension Status: Acute Assessment and Plan: resume home meds Subjective Date/time seen: 05/28/24 16:29 Interval history: Patient was evaluated at the bedside. Patient reports of mild cough. Patient had episodes of hyperglycemia and insulin is adjusted accordingly. Tomorrow we will repeat the chest x-ray. Exam Narrative: lying in stretcher Const: General: comfortable, no acute distress, well developed, alert, awake, ill appearing and average body habitus Nutritional Appearance: average body habitus Orientation/consciousness: patient oriented x3 HENMT: Head: normal to inspection, normocephalic and atraumatic Ears: hearing grossly normal bilaterally Face/Nose/Sinus: normal facial exam Face and sinus: normal facial exam Eyes: General: appearance normal, both eyes and all related structures Pupils: Equal, round and reactive pupils present EOM: EOMs intact bilaterally Neck: Neck: full ROM, no lymphadenopathy and no JVD Thyroid: thyroid normal Lymphatic: no lymphadenopathy noted Resp: Effort & Inspection: Actively coughing Auscultation: wheezes and diminished lung sounds Cardio: Jugular venous distension: no JVD Rate: regular rate Rhythm: regular rhythm Heart sounds: S1 normal heart sound present and S2 normal heart sound present : General: Yes deferred Skin: Rashes: no rashes Wounds: no wounds Neuro: General: patient oriented x3 and CN's II-XI intact bilaterally Cranial nerves: Yes CN's II-XII intact bilaterally and Yes Equal, round and reactive pupils present Cognition (Neuro): normal cognition Speech: normal speech Gait exam (Neuro): Normal gait present Motor exam (neuro): 5/5 motor strength present throughout Extrem: General: normal to inspection, full ROM, no joint enlargement and no pedal edema Objective Data Vital Signs Vital Signs: Vital Signs - 24 hr 05/27/24 16:42 05/27/24 18:00 05/27/24 19:49 Temperature 97.3 F L Pulse Rate 76 90 68 Respiratory Rate 18 18 Blood Pressure 137/69 Pulse Oximetry 92 Oxygen Delivery 05/27/24 19:58 05/27/24 20:13 05/27/24 20:00 Temperature 97.9 F Pulse Rate 71 73 75 Respiratory Rate 18 18 Blood Pressure 116/61 Pulse Oximetry 93 Oxygen Delivery 05/27/24 23:49 05/28/24 00:00 05/28/24 00:29 Temperature 97.6 F Pulse Rate 68 67 Respiratory Rate 18 Blood Pressure 117/50 L Pulse Oximetry 96 Oxygen Delivery Room Air 05/28/24 02:32 05/28/24 02:40 05/28/24 04:00 Temperature Pulse Rate 83 70 Respiratory Rate 14 14 Blood Pressure Pulse Oximetry Oxygen Delivery Room Air 05/28/24 04:00
[2024-05-28 19:47] LABS: Glucose Point of Care 212 mg/dl (65-105)
[2024-05-28] MEDS: AZITHROMYCIN 500 MG/NS 250 ML 500 MG/250 ML BAG 250 MG IVPB (21:00)
[2024-05-28] MEDS: INSULIN GLARGINE (*BKC) 100 UNITS/ML 15 UNITS SUB-Q (21:53)
[2024-05-29] VITALS (19 sets, daily range): BP systolic 133–141; BP diastolic 59–85; PULSE 63–94; RESP 16–24; TEMP 35.6–36.8; O2SAT 94–100
[2024-05-29] MEDS: IPRATROPIUM 0.5 MG/ALBUTEROL SULFATE 2.5 MG AMPUL.NEB 3 ML INHALATION ×4 (02:26→19:44)
[2024-05-29 05:10] LABS: Hematocrit 44.2 % (42.0-52.0); Hemoglobin 14.3 g/dL (14.0-18.0); Mean Corpuscular HGB Conc 32.4 g/dl (32-36); Mean Corpuscular Hemoglobin 30.3 pg (26-34); Mean Corpuscular Volume 93.6 fl (80-100); Mean Platelet Volume 9.7 fl (7.4-10.4); Platelet Count Result 270 k/mm3 (150-375); Red Blood Count 4.72 M/mm3 (4.6-6.20); Red Cell Distribution Width 14.1 % (11.5-14.5)
[2024-05-29 06:55] LABS: Albumin Level 4.4 g/dL (3.5-5.1); Alkaline Phosphatase 104 U/L (38-126); Anion Gap 16 mmol/L (4-12); Aspartate Amino Transferase 30 U/L (17-59); Blood Urea Nitrogen 33 mg/dL (9-20); Calcium 9.6 mg/dL (8.4-10.2); Carbon Dioxide 25 mmol/L (22-30); Chloride 94 mmol/L (98-107); Estimated CRCL calculation 38 ml/min; Estimated Glomerular Filt Rate 54; Glucose 329 mg/dL (65-110); Potassium 4.6 mmol/L (3.4-5.0); Sodium 135 mmol/L (137-145)
[2024-05-29 07:00] LABS: Alanine Aminotransferase 33 U/L (6-50)
[2024-05-29 07:11] LABS: Glucose Point of Care 338 mg/dl (65-105)
[2024-05-29] MEDS: FLUTICASONE/UMECLIDIN/VILANTER 200-62.5-25 MCG ELLIPTA 1 PUFF INHALATION ×2 (07:23)
[2024-05-29] MEDS: ATORVASTATIN 40 MG TABLET PO (07:54)
[2024-05-29] MEDS: methylPREDNISolone SOD SUCC 125 MG VIAL 60 MG IV PUSH (07:54)
[2024-05-29] MEDS: INSULIN ASPART (*BKC) 100 UNITS/ML SUB-Q ×4 (07:54→20:51)
[2024-05-29] MEDS: INSULIN HUMAN REGULAR (*BKC) 100 UNITS/ML 12 UNITS SUB-Q ×3 (07:54→17:33)
[2024-05-29] MEDS: EMPAGLIFLOZIN 10 MG TABLET PO (07:55)
[2024-05-29] MEDS: CHLORTHALIDONE 25 MG TABLET PO (07:55)
[2024-05-29] MEDS: guaiFENesin 12 HR 600 MG TABCR 1200 MG PO ×2 (07:55→20:50)
[2024-05-29] MEDS: PREGABALIN (*CRX) 75 MG CAPSULE PO ×2 (07:55→17:11)
[2024-05-29] MEDS: METOPROLOL SUCCINATE EXT REL 50 MG TABCR PO (07:55)
[2024-05-29] MEDS: LOSARTAN POTASSIUM 50 MG TABLET PO (07:56)
[2024-05-29] MEDS: PANTOPRAZOLE 40 MG TABLET PO ×2 (07:56→20:50)
[2024-05-29 11:07] LABS: Hemoglobin A1C 10.7 % (<5.7)
[2024-05-29 11:59] LABS: Glucose Point of Care 243 mg/dl (65-105)
--- NOTE | 2024-05-29 15:43 | PM.IMPN ---
Progress Note: A&P Assessment and Plan (1) Pneumonia: Qualifiers: Laterality: right Lung location: middle lobe of lung Pneumonia type: due to unspecified organism Qualified Code(s): J18.9 - Pneumonia, unspecified organism Code(s): J18.9 - Pneumonia, unspecified organism Status: Acute Assessment and Plan: Admit to IMU Continue Rocephin and Zithromax Was treated with oral antibiotics in the outpatient setting CXR:Right mid lung opacities could represent a focus of atypical infection or aspiration in the appropriate clinical context. Sputum quality is changed (2) COPD exacerbation: Code(s): J44.1 - Chronic obstructive pulmonary disease with (acute) exacerbation Status: Acute Assessment and Plan: breathing treatments (3) Uncontrolled blood glucose: Code(s): R73.09 - Other abnormal glucose Status: Acute Assessment and Plan: ISS Jardiance (4) T2DM (type 2 diabetes mellitus): Code(s): E11.9 - Type 2 diabetes mellitus without complications Status: Acute Assessment and Plan: holding Metformin Lantus 15 units HS, bolus regular insulin 12 units, high-dose sliding scale Methylprednisone has been decreased from 60 mg q.6 hours to q.12 hours. (5) Hypertension: Code(s): I10 - Essential (primary) hypertension Status: Acute Assessment and Plan: resume home meds Subjective Date/time seen: 05/29/24 15:43 Interval history: Patient is currently doing well except for the fluctuation in the blood sugar. Patient his HB A1c result 10.7. Patient will be educated on insulin. Patient needs to see his PCP upon discharge and initiation of the insulin if necessary. Upon discharge patient will be restarted on on metformin and Jardiance. Today also we discontinued his steroids. Exam Narrative: lying in stretcher Const: General: comfortable, no acute distress, well developed, alert, awake, ill appearing and average body habitus Nutritional Appearance: average body habitus Orientation/consciousness: patient oriented x3 HENMT: Head: normal to inspection, normocephalic and atraumatic Ears: hearing grossly normal bilaterally Face/Nose/Sinus: normal facial exam Face and sinus: normal facial exam Eyes: General: appearance normal, both eyes and all related structures Pupils: Equal, round and reactive pupils present EOM: EOMs intact bilaterally Neck: Neck: full ROM, no lymphadenopathy and no JVD Thyroid: thyroid normal Lymphatic: no lymphadenopathy noted Resp: Effort & Inspection: Actively coughing Auscultation: wheezes and diminished lung sounds Cardio: Jugular venous distension: no JVD Rate: regular rate Rhythm: regular rhythm Heart sounds: S1 normal heart sound present and S2 normal heart sound present : General: Yes deferred Skin: Rashes: no rashes Wounds: no wounds Neuro: General: patient oriented x3 and CN's II-XI intact bilaterally Cranial nerves: Yes CN's II-XII intact bilaterally and Yes Equal, round and reactive pupils present Cognition (Neuro): normal cognition Speech: normal speech Gait exam (Neuro): Normal gait present Motor exam (neuro): 5/5 motor strength present throughout Extrem: General: normal to inspection, full ROM, no joint enlargement and no pedal edema Objective Data Vital Signs Vital Signs: Vital Signs - 24 hr 05/28/24 16:00 05/28/24 16:00 05/28/24 16:00 Temperature 97.6 F Pulse Rate 68 72 Respiratory Rate 16 Blood Pressure 119/93 H Pulse Oximetry 97 Oxygen Delivery Room Air Fraction of Inspired Oxygen 05/28/24 18:00 05/28/24 19:38 05/28/24 19:42 Temperature Pulse Rate 67 70 70 Respiratory Rate 16 Blood Pressure Pulse Oximetry 97 Oxygen Delivery Room Air Fraction of Inspired Oxygen 05/28/24 19:53 05/28/24 20:10 05/28/24 20:10 Temperature 97.8 F Pulse Rate 72 73 Respiratory Rate 16 20 Blood Pressure 113/56 L Pulse Oximetry 92
--- NOTE | 2024-05-29 16:01 | PC.NURSE ---
This patient, Navid Rodríguez, was transferred to [[id number] ] on 05/29/24 at 1550. Personal belongings sent with patient. Report given to [KEYONA Black @ 1600 ]. Appropriate documentation sent with patient.
--- NOTE | 2024-05-29 16:04 | PC.NURSE ---
Transfer received from IMU to room 346. Patient oriented to the room.
[2024-05-29 16:33] LABS: Glucose Point of Care 230 mg/dl (65-105)
[2024-05-29 17:06] LABS: Glucose Point of Care 216 mg/dl (65-105)
[2024-05-29] MEDS: INSULIN GLARGINE (*BKC) 100 UNITS/ML 15 UNITS SUB-Q (20:50)
[2024-05-29] MEDS: AZITHROMYCIN 500 MG/NS 250 ML 500 MG/250 ML BAG 250 MG IVPB (21:52)
[2024-05-30] MEDS: methocarbamoL 750 MG TABLET PO (00:18)
[2024-05-30 00:42] LABS: Glucose Point of Care 201 mg/dl (65-105)
[2024-05-30] MEDS: IPRATROPIUM 0.5 MG/ALBUTEROL SULFATE 2.5 MG AMPUL.NEB 3 ML INHALATION (03:34)
[2024-05-30 03:35] VITALS: PULSE 63; RESP 18
[2024-05-30 03:43] VITALS: PULSE 66; RESP 18
[2024-05-30 05:41] LABS: Hematocrit 45.8 % (42.0-52.0); Hemoglobin 15.1 g/dL (14.0-18.0); Mean Corpuscular Hemoglobin 30.5 pg (26-34); Mean Corpuscular Volume 92.5 fl (80-100); Mean Platelet Volume 9.5 fl (7.4-10.4); Platelet Count Result 287 k/mm3 (150-375); Red Blood Count 4.95 M/mm3 (4.6-6.20); Red Cell Distribution Width 14.1 % (11.5-14.5); White Blood Count 9.7 K/mm3 (4.5-10.0)
[2024-05-30 05:55] LABS: Alanine Aminotransferase 28 U/L (6-50); Albumin Level 4.2 g/dL (3.5-5.1); Alkaline Phosphatase 95 U/L (38-126); Anion Gap 11 mmol/L (4-12); Aspartate Amino Transferase 27 U/L (17-59); Bilirubin,Total 0.9 mg/dL (0.2-1.3); Blood Urea Nitrogen 33 mg/dL (9-20); Calcium 9.6 mg/dL (8.4-10.2); Carbon Dioxide 27 mmol/L (22-30); Chloride 96 mmol/L (98-107); Estimated CRCL calculation 41 ml/min; Estimated Glomerular Filt Rate 60; Glucose 159 mg/dL (65-110); Potassium 3.7 mmol/L (3.4-5.0); Sodium 134 mmol/L (137-145)
[2024-05-30 06:00] VITALS: BP 121/69; PULSE 71; RESP 18; TEMP 36.4; O2SAT 96
--- NOTE | 2024-05-30 07:30 | PC.NURSE ---
Patient was admitted to IMU. Admission still sitting on worklist. This RN is completing it off as patient has been here for two days.
[2024-05-30 08:29] VITALS: PULSE 71
[2024-05-30] MEDS: METOPROLOL SUCCINATE EXT REL 50 MG TABCR PO (08:29)
[2024-05-30] MEDS: PREGABALIN (*CRX) 75 MG CAPSULE PO (08:29)
[2024-05-30] MEDS: guaiFENesin 12 HR 600 MG TABCR 1200 MG PO (08:29)
[2024-05-30] MEDS: CHLORTHALIDONE 25 MG TABLET PO (08:29)
[2024-05-30] MEDS: PANTOPRAZOLE 40 MG TABLET PO (08:29)
[2024-05-30] MEDS: LOSARTAN POTASSIUM 50 MG TABLET PO (08:29)
[2024-05-30] MEDS: ATORVASTATIN 40 MG TABLET PO (08:29)
[2024-05-30] MEDS: EMPAGLIFLOZIN 10 MG TABLET PO (08:29)
[2024-05-30 09:05] LABS: Glucose Point of Care 185 mg/dl (65-105)
[2024-05-30] MEDS: INSULIN HUMAN REGULAR (*BKC) 100 UNITS/ML 12 UNITS SUB-Q ×2 (09:11→12:24)
--- NOTE | 2024-05-30 10:16 | PCRCNOTE ---
Window of time for administration has passed. See next scheduled administration.
--- NOTE | 2024-05-30 10:46 | PM.DS ---
DS: Admitting Diagnosis Discharge Date 05/30/2024 Admitting Diagnosis Pneumonia DS: Discharge Diagnosis Discharge Diagnosis (1) Pneumonia: Qualifiers: Laterality: right Lung location: middle lobe of lung Pneumonia type: due to unspecified organism Qualified Code(s): J18.9 - Pneumonia, unspecified organism Code(s): J18.9 - Pneumonia, unspecified organism Status: Acute Assessment and Plan: DC Rocephin and Zithromax Was treated with oral antibiotics in the outpatient setting CXR during admission shows:Right mid lung opacities could represent a focus of atypical infection or aspiration in the appropriate clinical context. Recent CXR : No significant abnormality (2) COPD exacerbation: Code(s): J44.1 - Chronic obstructive pulmonary disease with (acute) exacerbation Status: Acute Assessment and Plan: breathing treatments (3) Uncontrolled blood glucose: Code(s): R73.09 - Other abnormal glucose Status: Acute Assessment and Plan: ISS Jardiance (4) T2DM (type 2 diabetes mellitus): Code(s): E11.9 - Type 2 diabetes mellitus without complications Status: Acute Assessment and Plan: In-hospital holding Metformin Lantus 15 units HS, bolus regular insulin 12 units, high-dose sliding scale Methylprednisone has been decreased from 60 mg q.6 hours to q.12 hours. (5) Hypertension: Code(s): I10 - Essential (primary) hypertension Status: Acute Assessment and Plan: resume home meds DS: Summary Hospital Course Hospital Course: This is a 74-year-old male with past medical history significant for tobacco dependence, patient quit 2 years ago, COPD/emphysema, hypertension, type 2 diabetes mellitus, dyslipidemia. Patient presents to the emergency room due to worsening shortness of breath cough initially dry has turned productive of green copious amount of secretions, patient completed course of antibiotics and oral steroids in the outpatient setting however symptoms did not go away and turned worse, night sweats, chills. In the emergency room preliminary workup was significant for chest x-ray with infiltrate. 05/30: The repeated chest x-ray shows no infiltrate. Patient was discontinued on antibiotic yesterday and steroid as well. During the course of hospitalization patient blood sugar was random spite and patient was receiving 12 units of bolus insulin and 15 units of Lantus in addition to the sliding scale. After the discontinuation of the steroid the blood sugar has been stable but still not in the target. Patient recent hemoglobin HbA1c is 10.1. After long discussion with the patient. We will be starting patient on Lantus 10 units HS. He will be restarted on metformin and Jardiance to his home medication. He agrees to follow-up with his PCP and adjust his insulin and if necessary to add a bolus insulin. Patient agrees to check his fingerstick glucose and if necessary we seek attention in the event of hypoglycemia. Patient to receive diabetic education before getting discharged. Status at Discharge Cognitive/behavioral status at discharge: Stable Time Spent with Patient Time attestation: Total time spent providing and/or coordinating discharge services: 45 minutes Exam Narrative: lying in stretcher Const: General: comfortable, no acute distress, well developed, alert, awake, ill appearing and average body habitus Nutritional Appearance: average body habitus Orientation/consciousness: patient oriented x3 HENMT: Head: normal to inspection, normocephalic and atraumatic Ears: hearing grossly normal bilaterally Face/Nose/Sinus: normal facial exam Face and sinus: normal facial exam Eyes: General: appearance normal, both eyes and all related structures Pupils: Equal, round and reactive pupils present EOM: EOMs intact bilaterally Neck: Neck: full ROM, no lymphadenopathy and no JVD Thyroid: thyroid normal Lymphatic: no lympha
--- NOTE | 2024-05-30 11:05 | PC.NURSE ---
RN spoke with Jessica Video Production Engineer and she stated that Jessica will be over to see patient and educate him on insulin use at home today.
[2024-05-30 11:49] LABS: Glucose Point of Care 307 mg/dl (65-105)
[2024-05-30 11:55] VITALS: BMI 22.4
[2024-05-30 12:23] LABS: Glucose Point of Care 185 mg/dl (65-105)
== END 2024-05-30 14:50 | disposition home or self-care (01) | DRG 190 ==
LOC: ANHED 20:15 → ANH3MED 20:51 → ANHIMU 05-27 01:01 → ANH3MED 05-29 16:01
PROVIDERS: Physician Assistant; Admitting Provider Internal Medicine; Emergency Provider Emergency Medicine; PCP Internal Medicine; Visit Provider General Practice
DX: J44.0 Chronic obstructive pulmonary disease with (acute) lower respiratory infection (principal); J18.9 Pneumonia, unspecified organism; J44.1 Chronic obstructive pulmonary disease with (acute) exacerbation; I10 Essential (primary) hypertension; E11.9 Type 2 diabetes mellitus without complications; E78.5 Hyperlipidemia, unspecified; Z20.822 Contact with and (suspected) exposure to COVID-19; Z87.891 Personal history of nicotine dependence
CPT/HCPCS: 36415; 71045; 71046; 80048; 80053; 82948; 83036; 85025; 85027; 85610; 85730; 87040; 87637; 94640; 96365; 96366; 96375; 96376; 99285; A9270; G0378; J0456; J0696; J1815; J2919; J7030

== ENCOUNTER 2024-06-18 13:36 | Outpatient (CLI) | payer MEDICARE, SELFPAY ==
--- NOTE | 2024-06-18 15:33 | WPDPFTINT ---
PFT Procedure Performed PFT Procedure Performed Spirometry with Pre/Post Bronchodilator Plethysmography (Lung Vol) Diffusing Cap (DLCO) Flow Vol Loop PFT Interpretation This is a pulmonary function test with pre and post-bronchodilator spirometry, plethysmography and diffusing capacity. The test was performed and results interpreted in accordance with the 2019 and 2005 ATS/ERS Task Force guidelines respectively using the Global Lung Function Initiative-2012 reference equations. Patient demonstrated good effort and cooperation. Reproducibility criteria were met. The quality of the pre bronchodilator spirometry maneuver was Grade A and post bronchodilator spirometry maneuver was Grade A. Findings: Spirometry: There is decreased maximal expiratory airflow at low lung volumes with concave expiratory flow tracing. The contour the inspiratory flow tracing is normal. The pre bronchodilator FVC is 3.15 L, 93% predicted. The pre bronchodilator FEV1 is 2.06 L, 79% predicted. The pre bronchodilator FEV1: FVC ratio is 65%. The post bronchodilator FVC is 3.11 L, representing 1% decrease. The post bronchodilator FEV1 is 2.12 L, representing a 3% increase. The post bronchodilator FEV1: FVC ratio 68%. Plethysmography: The total lung capacity is 4.43 L, 76% predicted. The functional residual COVID capacity is 2.02 L, 66% predicted. The residual volume is 1.28 L, 59% predicted. Diffusing capacity: The diffusing capacity unadjusted for hemoglobin and carboxyhemoglobin is 12.5, 54% predicted. The diffusing capacity adjusted for alveolar volume is 3.39, 80% predicted. Impression: The spirometry is normal without evidence of an obstructive abnormality. There is no significant improvement after inhaling a single dose of albuterol. The total lung capacity and functional residual capacity are normal with a decreased residual volume. This is an abnormal but nonspecific lung volume pattern. The diffusing capacity unadjusted for hemoglobin and carboxyhemoglobin is moderately decreased and normalizes when adjusted for alveolar volume. There are no prior studies for comparison
== END 2024-06-18 13:37 | disposition home or self-care (01) ==
PROVIDERS: PCP Internal Medicine; Visit Provider Internal Medicine Pulmonary Disease
DX: R06.09 Other forms of dyspnea (principal); D89.9 Disorder involving the immune mechanism, unspecified; T78.40XA Allergy, unspecified, initial encounter; X58.XXXA Exposure to other specified factors, initial encounter
CPT/HCPCS: 94060; 94726; 94729

== ENCOUNTER 2024-06-26 13:02 | Outpatient (RCR) | payer MEDICARE, SELFPAY | END 2024-09-15 09:33 | disposition home or self-care (01) | LOC: ANHDMC 13:02 | PROVIDERS: PCP Internal Medicine; Visit Provider Internal Medicine | DX: E11.65 Type 2 diabetes mellitus with hyperglycemia (principal); Z71.89 Other specified counseling | CPT/HCPCS: G0108 ==

== ENCOUNTER 2024-06-27 17:06 | Emergency (ER) | payer MEDICARE, SELFPAY ==
--- NOTE | ~2024-06-27 | XR_ITS ---
XR chest 1V portable Ordering provider: Berta Pathak MD History: 74 years Male with . cough, sob . Comparison: May 29, 2024 FINDINGS: MEDIASTINUM: The cardiac silhouette is not enlarged. LUNGS: No infiltrates, effusions or pneumothorax. OTHER: No free air under the diaphragm. Degenerative changes of the spine. IMPRESSION: No acute cardiopulmonary pathology. Reviewed, dictated and finalized at location A.
[2024-06-27 17:10] VITALS: BP 119/81; PULSE 107; RESP 20; TEMP 36.7; O2SAT 98
--- NOTE | 2024-06-27 17:28 | ECG_ITS ---
Test Date: 2024-06-27 17:34:48 Measurements Intervals [place] Rate: 96 P: 57 CO: 147 QRS: 69 QRSD: 68 T: 67 QT: 329 QTc: 417 Interpretive Statements SINUS RHYTHM MINIMAL ST DEPRESSION [0.025+ mV ST DEPRESSION] No previous ECG available for comparison Electronically Signed On 06-28-2024 08:26:57 CDT by Logan Black M.D.
--- NOTE | 2024-06-27 17:30 | ED.SOB ---
HPI - SOB/Dyspnea General Chief Complaint: Shortness of Breath/Dyspnea Stated Complaint: SOB Time Seen by Provider: 06/27/24 17:18 History of Present Illness HPI Narrative: Patient with history of COPD presents here with what feels like exacerbation of his COPD or pneumonia, had been admitted here several weeks ago, treated for pneumonia, however about a week ago started having a cough again and yesterday coughing was much worse with more difficulty breathing. Has been using his inhalers without much improvement Related Data Home Medications Medication Instructions Recorded Confirmed albuterol sulfate 90 mcg/actuation 2 puff inhalation Q6H PRN 05/26/24 05/26/24 aerosol inhaler (Ventolin HFA) Shortness Of Breath Or Wheezing atorvastatin 40 mg tablet 40 mg PO DAILY 05/26/24 05/26/24 calcitriol 0.25 mcg capsule 0.25 mcg PO EVERY OTHER DAY 05/26/24 05/26/24 chlorthalidone 25 mg tablet 25 mg PO DAILY 05/26/24 05/26/24 empagliflozin 10 mg tablet 10 mg PO DAILY 05/26/24 05/26/24 (Jardiance) ergocalciferol (vitamin D2) 1,250 1,250 mcg PO WEEKLY 05/26/24 05/26/24 mcg (50,000 unit) capsule fluticasone fur. 200 mcg-umeclid 1 inh inhalation DAILY 05/26/24 05/26/24 62.5 mcg-vilant 25 mcg inhalat.powder (Trelegy Ellipta) losartan 50 mg tablet 50 mg PO DAILY 05/26/24 05/26/24 metformin 500 mg tablet,extended 500 mg PO BID 05/26/24 05/26/24 release 24 hr methocarbamol 750 mg tablet 750 mg PO TID PRN muscle spasms 05/26/24 05/26/24 metoprolol succinate 50 mg 50 mg PO DAILY 05/26/24 05/26/24 tablet,extended release 24 hr omeprazole 40 mg capsule,delayed 40 mg PO HS 05/26/24 05/26/24 release pregabalin 75 mg capsule 75 mg PO BID 05/26/24 05/26/24 Allergies Allergy/AdvReac Type Severity Reaction Status Date / Time No Known Allergies Allergy Verified 06/27/24 17:06 Review of Systems Review of Systems: All systems reviewed & are unremarkable except as noted in HPI and below PMFSH Past Medical History Medical History (Updated 06/27/24 @ 18:09 by Berta Pathak MD) COPD (chronic obstructive pulmonary disease) COPD (chronic obstructive pulmonary disease) Diabetes Diabetes Hyperlipidemia Hypertension Hypertension Surgical History Surgical History (Updated 05/27/24 @ 11:40 by Km Velazquez) H/O neck surgery History of hip surgery No pertinent past surgical history Previous back surgery Family History Family History (System 05/27/24 @ 11:40 by Km Velazquez) Mother Acute myocardial infarction Congestive heart failure Chronic obstructive pulmonary disease Hypertension Asthma Sibling History of blood clots Cerebrovascular accident Colon cancer Social History Social History (System 05/27/24 @ 11:40 by Km Velazquez) Social History: current smoker Smoking packs per day: 0.75 Smoking cigarettes per day: 15.0 Years smoked: 40 Smoking pack-years: 30.00 Smoking status: Former smoker Tobacco type: cigarettes Alcohol intake: never Substance use: former Substance use type: does not use Do You Feel Safe in your Home?: Yes Lack of Transportation: No Lack of Food: Never True Current Housing: I Have Housing Concerned About Future Housing: No Difficulty Paying Gas/Electric Bills: No Difficulty Paying for Meds: YES Currently Unemployed: No Education: High School Diploma/GED Difficulty w/ Childcare or Family Care: No Living arrangements: alone Occupation/Education: retired Spiritual care concerns: No Exam Narrative: EXAMINATION OF ORGAN SYSTEMS/BODY AREAS: Constitutional: Vital signs per nursing GENERAL:[No acute distress, non-toxic appearing.] HEAD: Normal with no signs of head trauma. EYES: EOMI, conjunctiva normal ENT: Hearing grossly intact LUNGS: Nonlabored breathing. Speaking full sentences. Some end expiratory wheezing bilaterally HEART: [Regular rate and rhythm] ABD: [Soft], [nontender to palpation] EXT: Normal range of motion SKIN: [
[2024-06-27] MEDS: ALBUTEROL SULFATE NEB 2.5 MG/3 ML INH 15 MG INHALATION (17:42)
[2024-06-27] MEDS: IPRATROPIUM BR 0.02% INH SOLN 0.5 MG/2.5 ML VIAL 1 MG INHALATION (17:42)
[2024-06-27 17:44] VITALS: PULSE 93; RESP 16
[2024-06-27] MEDS: AZITHROMYCIN 250 MG TABLET 500 MG PO (18:31)
[2024-06-27 18:50] VITALS: PULSE 107; RESP 16
[2024-06-27 18:53] VITALS: BP 122/83; PULSE 99; RESP 20; O2SAT 94; O2SAT 96
[2024-06-27 19:28] VITALS: BP 123/65
== END 2024-06-27 19:29 | disposition home or self-care (01) ==
PROVIDERS: Emergency Provider Emergency Medicine; PCP Internal Medicine
DX: J44.1 Chronic obstructive pulmonary disease with (acute) exacerbation (principal); J44.0 Chronic obstructive pulmonary disease with (acute) lower respiratory infection; J20.9 Acute bronchitis, unspecified; E11.9 Type 2 diabetes mellitus without complications; E78.5 Hyperlipidemia, unspecified; I10 Essential (primary) hypertension; Z87.891 Personal history of nicotine dependence
CPT/HCPCS: 71045; 93005; 94640; 99283; A9270

== ENCOUNTER 2024-10-01 20:22 | Emergency (ER) | payer MEDICARE, SELFPAY ==
--- NOTE | ~2024-10-01 | XR_ITS ---
XR shoulder LT min 2V 10/01/2024 20:35 INDICATION: Left shoulder pain after fall recent fall PROCEDURE: 4 views left shoulder COMPARISON: No prior studies for comparison. FINDINGS: Fracture, dislocation or subluxation is not identified. The soft tissues appear within norm al limits. No foreign bodies are identified. IMPRESSION: 1: NO ACUTE BONE OR JOINT ABNORMALITY IDENTIFIED. Reviewed, dictated and finalized at location A. [employer] PROFESSIONAL
[2024-10-01 20:28] VITALS: BP 156/65; PULSE 82; RESP 16; TEMP 36.5; O2SAT 98
--- NOTE | 2024-10-01 20:45 | ED.UPPEXIN ---
HPI - Extremity Injury (Upper) General Chief Complaint: Extremity Injury, Upper Stated Complaint: left shoulder, fell on it sunday Time Seen by Provider: 10/01/24 20:42 Source: patient Mode of arrival: ambulatory Limitations: no limitations History of Present Illness HPI narrative: 74-year-old with a history of CVA here with the complaints of left shoulder pain. Patient states that he fell a few days ago and now having pain in the left shoulder. He denies any other injuries MD complaint: injury to: left Onset (ago): day(s) (4) Other injuries: none Relieving factors: none Exacerbating factors: movement of extremity Context: fall Associated symptoms: denies other symptoms Related Data Home Medications ?Medication ?Instructions ?Recorded ?Confirmed ?Last Taken ?Type albuterol sulfate 90 mcg/actuation 2 puff inhalation Q6H PRN 05/26/24 09/30/24 Unknown History aerosol inhaler (Ventolin HFA) Shortness Of Breath Or Wheezing atorvastatin 40 mg tablet 40 mg PO DAILY 05/26/24 09/30/24 05/25/24 History calcitriol 0.25 mcg capsule 0.25 mcg PO EVERY OTHER DAY 05/26/24 09/30/24 05/24/24 History empagliflozin 10 mg tablet 10 mg PO DAILY 05/26/24 09/30/24 05/25/24 History (Jardiance) ergocalciferol (vitamin D2) 1,250 1,250 mcg PO WEEKLY 05/26/24 09/30/24 05/24/24 History mcg (50,000 unit) capsule losartan 50 mg tablet 50 mg PO DAILY 05/26/24 09/30/24 05/24/24 History metformin 500 mg tablet,extended 500 mg PO BID 05/26/24 09/30/24 05/24/24 History release 24 hr methocarbamol 750 mg tablet 750 mg PO TID PRN muscle spasms 05/26/24 09/30/24 Unknown History metoprolol succinate 50 mg 50 mg PO DAILY 05/26/24 09/30/24 Unknown History tablet,extended release 24 hr omeprazole 40 mg capsule,delayed 40 mg PO HS 05/26/24 09/30/24 Unknown History release pregabalin 75 mg capsule 75 mg PO BID 05/26/24 09/30/24 Unknown History Allergies Allergy/AdvReac Type Severity Reaction Status Date / Time No Known Allergies Allergy Verified 06/27/24 17:06 Review of Systems Review of Systems: All systems reviewed & are unremarkable except as noted in HPI and below Constitutional: Constitutional: Reports no additional constitutional complaints Eyes: Eyes: Reports no additional eye complaints ENT: Reports system reviewed and no additional complaints, except as documented Cardiovascular: Cardiovascular: Reports no additional cardiovascular complaints Respiratory: Respiratory: Reports no additional respiratory complaints Musculoskeletal: Musculoskeletal: Reports as per HPI [facility] Past Medical History Medical History Diabetes COPD (chronic obstructive pulmonary disease) Hypertension Hyperlipidemia COPD (chronic obstructive pulmonary disease) Diabetes Hypertension Surgical History Surgical History H/O neck surgery Previous back surgery History of hip surgery No pertinent past surgical history Family History Family History Mother Acute myocardial infarction Congestive heart failure Chronic obstructive pulmonary disease Hypertension Asthma Sibling History of blood clots Cerebrovascular accident Colon cancer Social History Social History Social History: current smoker Smoking packs per day: 0.75 Smoking cigarettes per day: 15.0 Years smoked: 40 Smoking pack-years: 30.00 Smoking status: Former smoker Tobacco type: cigarettes Alcohol intake: never Substance use: former Substance use type: does not use Do You Feel Safe in your Home?: Yes Lack of Transportation: No Lack of Food: Never True Current Housing: I Have Housing Concerned About Future Housing: No Difficulty Paying Gas/Electric Bills: No Difficulty Paying for Meds: YES Currently Unemployed: No Education: High School Diploma/GED Difficulty w/ Childcare or Family Care: No Living arrangements: alone Occupation/Education: retired Spiritual care concerns: No Exam Narrative: GENERAL: Well-appearing, well-nourished, and in no acute distress. HEAD: Normocephalic, atraumatic. EYES: PERRLA NECK: Supple. CHEST: Clear to auscultation. No respiratory distress. HEART: Regular rate and rhythm. No murmur heard. Normal peripheral pulses. EXTREMITIES: Normal range of motion. No edema. has painful ROM of the left shoulder , no deformity SKIN: Warm, dry, no rash. NEURO: No focal deficits. Alert and oriented x3. PSYCH: Normal mood and affect. Course Course Emergency Course: Notified patient about his x-ray findings recommended him to take pain medication as prescribed. Vital Signs Vital signs: Vital Signs Temperature 36.5 C 10/01/24 20:28 Pulse Rate 82 10/01/24 20:28 Respiratory Rate 16 10/01/24 20:28 Blood Pressure 156/65 H 10/01/24 20:28 Pulse Oximetry 98 10/01/24 20:28 Temperature 36.5 C 10/01/24 20:28 Pulse Rate 82 10/01/24 20:28 Respiratory Rate 16 10/01/24 20:28 Blood Pressure 156/65 H 10/01/24 20:28 Pulse Oximetry 98 10/01/24 20:28 MDM - Extremity Injury (Upper) Imaging Data Radiologist's impression: ITS Impressions Shoulder X-Ray 10/01/24 20:37 IMPRESSION: 1: NO ACUTE BONE OR JOINT ABNORMALITY IDENTIFIED. Discharge Plan Discharge Clinical Impression: Contusion of left shoulder Qualifiers: Encounter type: initial encounter Qualified Code(s): S40.012A - Contusion of left shoulder, initial encounter Patient Disposition: Home, Self-Care Condition: Stable Instructions: Contusion in Adults (ED) Patient Language: Belgian Prescriptions: New naproxen sodium [Anaprox DS] 550 mg tablet 550 mg PO Q12H PRN (Reason: pain) Qty: 14 0RF No Action losartan 50 mg tablet 50 mg PO DAILY atorvastatin 40 mg tablet 40 mg PO DAILY metoprolol succinate 50 mg tablet extended release 24 hr 50 mg PO DAILY omeprazole 40 mg capsule,delayed release(DR/EC) 40 mg PO HS methocarbamol 750 mg tablet 750 mg PO TID PRN (Reason: muscle spasms) ergocalciferol (vitamin D2) 1,250 mcg (50,000 unit) capsule 1,250 mcg PO WEEKLY Rx Instructions: sunday administration albuterol sulfate [Ventolin HFA] 90 mcg/actuation HFA aerosol inhaler 2 puff INHALATION Q6H PRN (Reason: Shortness Of Breath Or Wheezing) metformin 500 mg tablet extended release 24 hr 500 mg PO BID calcitriol 0.25 mcg capsule 0.25 mcg PO EVERY OTHER DAY pregabalin 75 mg capsule 75 mg PO BID Patient Comments: pt has not been taking routinely r/t side effects of fatigue Jardiance 10 mg tablet 10 mg PO DAILY insulin glargine [Lantus Solostar U-100 Insulin] 100 unit/mL (3 mL) insulin pen 10 unit subcut QPM Qty: 3 0RF (DME) pen needle, diabetic [BD Ultra-Fine Micro Pen Needle] 32 gauge x 1/4 needle See Rx Instructions .Route Qty: 100 0RF Rx Instructions: As directed Follow-up/Referrals: Tiffanie,MD Naila [Primary Care Provider] - Time of Disposition: 20:51
== END 2024-10-01 21:15 | disposition home or self-care (01) ==
PROVIDERS: Emergency Provider Family Medicine; PCP Internal Medicine
DX: S40.012A Contusion of left shoulder, initial encounter (principal); W19.XXXA Unspecified fall, initial encounter; Z87.891 Personal history of nicotine dependence
CPT/HCPCS: 73030; 99283

== ENCOUNTER 2024-11-25 10:33 | Outpatient (CLI) | payer MEDICARE, SELFPAY ==
--- NOTE | ~2024-11-25 | CT_ITS ---
CT Scan of the Chest without Contrast: Clinical Indication: Lung cancer screening, nicotine dependence Technique: Contiguous sections were acquired throughout the chest without intravenous contrast. Dose reduction technique was used on this scan by utilizing automated exposure control and iterative recon struction technique. The dose-length product (DLP) was 76.02 mGy-cm. COMPARISON: 09/21/2022 Findings: Stable shotty mediastinal lymph nodes. Coronary artery calcification are present. No aortic aneurysm. There is no evidence of pleural or pericardial effusion. Stable 6 mm right upper lobe pulmonary nodule (axial image 47). There is a new 4 mm left upper lobe p ulmonary nodule (axial image 44). There is mild biapical scarring.. There is advanced emphysema. Images through the upper abdomen reveal no abnormalities. Impression: Lung RADS 2: Benign appearance. 12 month follow-up screening CT advised. Advanced emphysema. Reviewed, dictated and finalized at [facility]. Impression: Lung RADS 2: Benign appearance. 12 month follow-up screening CT advised. Advanced emphysema.
--- OUTSIDE RECORDS SUMMARY | 2024-11-25 12:06 | XMS_ITS | CONTINUITY OF CARE DOCUMENT ---
Author Name cruz kitoctavio Address Unknown Organization [facility] Address [address] [place] [address] Phone [phone] Care Team Providers Care Eap Specialist Name Role Phone Derrick Amos MD Unavailable CAITLIN RAMÍREZ MD Unavailable [phone] CAITLIN RAMÍREZ MD Unavailable [phone] PROBLEMS Condition Status Date Provider Notes Preop exam active Marshal Milner MD Hypertension active Marshal Milner MD Dyslipidemia active Marshal Milner MD Diabetes mellitus active Marshal Milner MD COPD active Marshal Milner MD Shortness of breath active Marshal Milner MD TOBACCO ABUSE-QUIT active Derrick Amos MD Arrhythmia active Marshal Milner MD CVA active Derrick Amos MD Cardiology examination active Derrick Amos MD ENCOUNTERS Date Type Provider Location Encounter Diag nosis - In-person encounter Office Visit Derrick Amos MD [facility] Cardiology examination - In-person encounter Office Visit Derrick Amos MD [facility] TOBACCO ABUSE-QUIT - In-person encounter Office Visit Derrick Amos MD [facility] - In-person encounter Office Visit Derrick Amos MD [facility] - In-person encounter Office Visit Derrick Amos MD [facility] - In-person encounter Office Visit Derrick Amos MD [facility] CVA - In-person encounter Office Visit Derrick Amos MD [facility] - In-person encounter Office Visit Marshal Milner MD [facility] Preop examHypertensionDyslipidemiaDiabetes mellitusCOPDShortness of breathTOBACCO ABUSE-QUITArrhythmia VITAL SIGNS Date Observation Value Provider Body Mass Index (Ratio) 24.65 kg/m2 Portia Amos MD blood pressure, diastolic 93 mm[Hg] [facility], [facility] 165 mm[Hg] Naina tamiko Aleman oxygen saturation, oximetry 94 % [facility] pulse rate 87 /min [facility] weight E&M 143.6 [lb_av] [facility] height E&M 64 [in_i] [facility] blood pressure, cuff size regular [facility] Body Mass Index (Ratio) 24.03 kg/m2 Portia Amos MD blood pressure, diastolic 67 mm[Hg] Calixto Machado RN blood pressure, systolic 124 mm[Hg] Kathy Machado RN oxygen saturation, oximetry 97 % Kathy Machado RN respiratory rate E&M 18 /min Kathy ortega RN pulse rate 50 /min Kathy Machado RN weight E&M 140 [lb_av] Kathy Machado RN Body Mass Index (Ratio) 23.51 kg/m2 Portia Amos MD blood pressure, cuff size regular Jose Mata blood pressure, diastolic 68 mm[Hg] Jose Mata blood pressure, systolic 114 mm[Hg] Jovi Mata oxygen saturation, oximetry 98 % Benito Mata respiratory rate E&M 24 /min Benito Mata pulse rate 84 /min Benito Mata weight E&M 137 [lb_av] Benito Mata Body Mass Index (Ratio) 23.51 kg/m2 Portia Amos MD blood pressure, cuff size regular Ja rret blood pressure, diastolic 93 mm[Hg] Ja rret blood pressure, systolic 169 mm[Hg] Jar ret pulse rate 63 /min Lucas oxygen saturation, oximetry 96 % Lucas respiratory rate E&M 16 /min Lucas weight E&M 137 [lb_av] Lucas height E&M 64 [in_i] Lucas Body Mass Index (Ratio) 23.34 kg/m2 Ricky Albright blood pressure, cuff size regular Ja rret blood pressure, diastolic 95 mm[Hg] Ja rret blood pressure, systolic 176 mm[Hg] Jar ret pulse rate 58 /min Lucas y respiratory rate E&M 16 /min Lucas oxygen saturation, oximetry 98 % Lucas weight E&M 136 [lb_av] Lucas y height E&M 64 [in_i] Lucas er y Body Mass Index (Ratio) 23.51 kg/m2 Portia Amos MD blood pressure, diastolic 90 mm[Hg] Barbie Karimi blood pressure, systolic 155 mm[Hg] She roberta Karimi pulse rate 61 /min Jazzy Karimi respiratory rate E&M 20 /min Jazzy Karimi oxygen saturation, oximetry 96 % Jazzy Karimi weight E&M 137 [lb_av] aJzzy Karimi blood pressure, cuff size regular Barbie Karimi height E&M 64 [in_i] Jazzy Karimi Body Mass Index (Ratio) 23.51 kg/m2 Portia Amos MD blood pressure, diastolic 100 mm[Hg] Aide nkLog blood pressure, systolic 176 mm[Hg] Raquel kLog pulse rate 78 /min Lucas blood pressure, cuff size regular Andrea rret blood pressure, diastolic 100 mm[Hg] Andrea rret blood pressure, systolic 176 mm[Hg] Jar ret oxygen saturation, oximetry 94 % Lucas respiratory rate E&M 12 /min Lucas weight E&M 137 [lb_av] Lucas y height E&M 64 [in_i] Lucas y Body Mass Index (Ratio) 24.54 kg/m2 David Quarles blood pressure, diastolic, left arm 80 mm [Hg] [place] blood pressure, systolic, left arm 130 mm [Hg] Catrina blood pressure, diastolic, right arm 80 m m[Hg] Catrina blood pressure, systolic, right arm 130 m m[Hg] Catrina blood pressure, diastolic 80 mm[Hg] [facility], systolic 130 mm[Hg] Yane cuevas oxygen saturation, oximetry 97 % [facility] respiratory rate E&M 16 /min [facility] pulse rate 64 /min [facility] weight E&M 143 [lb_av] [facility] height E&M 64 [in_i] [facility] blood pressure, resting Yes Mi n Scalf ALLERGIES No Known Drug Allergies HISTORY OF MEDICATION USE Medication Status Instructions Dates Provider Indications Com ments naproxen 500 mg tablet active Derrick Amos MD methocarbamol 750 mg tablet active Derrick Amos MD calcitriol 0.25 mcg capsule active Derrick Amos MD losartan 50 mg tablet active Take 1 tablet by mouth twice a day Derrick Amos MD chlorthalidone 25 mg tablet active Take 1 tablet by mouth once a day Derrick Amos MD atorvastatin 40 mg tablet active TAKE 1 TABLET BY MOUTH EVERYDAY AT BEDTIME Derrick Amos MD Jardiance 10 mg tablet active Derrick Amos MD metformin (Glucophage XR) 500 mg tablet extended release 24 hr active Derrick Amos MD omeprazole 40 mg capsule,delayed release(DR/EC) active Derrick Amos MD cyclobenzaprine 10 mg tablet completed Take 1 tablet by mouth three times a day - Derrick Amos MD #90, 30 days supply, Filled 11/18/2018 metoprolol tartrate 50 mg tablet active Take 1 tablet by mouth twice a day Derrick Amos MD #120, 60 days supply, Filled 11/18/2018 lisinopril 40 mg tablet completed Take 1 tablet by mouth once a day - Derrick Amos MD #90, 90 days supply, Filled 11/20/2018 amlodipine 10 mg tablet completed Take 1 tablet by mouth once a day - Derrick Amos MD #90, 90 days supply, Filled 12/20/2018 morphine 30 mg tablet extended release completed Take 1 tablet by mouth every eight hours - Derrick Amos MD #90, 30 days supply, Prescribed by OLIVERIO ISABEL, Filled 01/17/2019 ropinirole 0.25 mg tablet completed Take 1 tablet by mouth once a day - Derrick Amos MD #30, 30 days supply, Filled 01/28/2019 SOCIAL HISTORY Date Observation Value Provider smoking, year quit 6 months Derrick haney MD number of years as a smoker 45+ Derrick Amos MD smoking history, tot al pack/day currently 1/2 Derrick Amos MD cigarette use yes Derrick Cardenas smoking status Former smoker Derrick Amos MD smoking, year quit 6 months Derrick haney MD number of years as a smoker 45+ Derrick Amos MD smoking history, tot al pack/day currently 1/2 Derrick Amos MD cigarette use yes Derrick Cardenas smoking status Former smoker Derrick Amos MD smoking, year quit 6 months Derrick haney MD number of years as a smoker 45+ Derrick Amos MD smoking history, tot al pack/day currently 1/2 Derrick Amos MD cigarette use yes Derrick Cardenas smoking status Former smoker Derrick Amos MD smoking, year quit 6 months Derrick haney MD number of years as a smoker 45+ Derrick Amos MD smoking history, tot al pack/day currently 1/2 Derrick Amos MD cigarette use yes Derrick Cardenas smoking status Former smoker Derrick Amos MD smoking, year quit 6 months Derrick haney MD number of years as a smoker 45+ Derrick Amos MD smoking history, tot al pack/day currently 1/2 Derrick Amos MD cigarette use yes Derrick Cardenas smoking status Former smoker Derrick Amos MD social history E&M S moking History: Tyson mcclain is a former smoker. Derrick Amos MD social history reviewed E&M revi ewed - no changes required Derrick Amos MD smoking, year quit 6 months Jazzy martines cigarette use yes Jazzy Sachi smoking status Former smoker Jazzy Up shahzad smoking/tobacco cess ation, patient education and counseling yes Derrick Amos MD number of years as a smoker 45+ Derrick Amos MD smoking history, tot al pack/day currently 1/2 Derrick Amos MD cigarette use yes Derrick Cardenas smoking status Current every day smoker U adam Amos MD social history reviewed E&M revi ewed - no changes required Derrick Amos MD social history reviewed E&M revi ewed - no changes required Marshal Milner MD social history E&M Smoking Histo ry: Tyson mcclain currently smokes every day. Tyson mcclain has been counseled to quit. Marshal Milner MD smoking/tobacco cess ation, patient education and counseling yes Marshal Milner MD number of years as a smoker 45+ Catrina Brody smoking history, tot al pack/day currently 1/2 Angel Quarles cigarette use yes Catrina Brody number of grandchildren Marshal Milner MD Kill reshma Brody smoking status Current every day smoker Vicki ashleigh Brody FAMILY HISTORY Family Member Condition Father Family History of Co ngestive Heart Failure: Father Family History of Hy pertension: Full Sister Family History of Ao rtic Aneurysm: Maternal Grandmother Family History of C VA or Stroke: Mother Family History of Co ngestive Heart Failure: Mother Family History of Hy pertension: INSURANCE PROVIDERS Payer name Policy type / Coverage type Jayde red democrat ID A[employer] MEDICARE ADVANTAGE ([facility] COMPLETE PPO) Other [id number] ADVANCE DIRECTIVES Name Date DISCUSSED - NO DECISION MADE TREATMENT PLAN Date Name Performer [id number],C,Per pcp Derrick Amos MD [id number],C,S tent to carotid. he should be on astatin but I am not sure. Derrick Amos MD [id number],C,N ot sure what he is on but he will see his PCP for a list of current meds B P today: 155/90 P rior BP: 176/100 (04/12/2023) Derrick Amos MD [id number],C,l ow risk for colonoscopy. BP is not well controlled, will have him come back in a week for BP check Derrick Amos MD [id number],C,n ot well controlled W ill add olmesartan 20mg daily B P today: 176/100 P rior BP: 130/80 (01/29/2019) His updated medication list for this problem includes: Metoprolol Tartrate 50 Mg Tablet (Metoprolol tartrate) ..... Take 1 tablet by mouth twice a day Lisinopril 40 Mg Tablet (Lisinopril) ..... Take 1 tablet by mouth once a day Amlodipine 10 Mg Tablet (Amlodipine) ..... Take 1 tablet by mouth once a day Olmesartan 20 Mg Tablet (Olmesartan) ..... Take 1 tablet by mouth once a day Derrick Amos MD Cardiology:check ech o Derrick Amos MD Cardiology: H is updated medication list for this problem includes: Losartan 50 Mg Tablet (Losartan) ..... Take 1 tablet by mouth twice a day Jardiance 10 Mg Tablet (Empagliflozin) Metformin (glucophage Xr) 500 Mg Tablet Extended Release 24 Hr (Metformin (glucophage xr)) Derrick Amos MD Cardiology: H is updated medication list for this problem includes: Atorvastatin 40 Mg Tablet (Atorvastatin) ..... Take 1 tablet by mouth everyday at bedtime Derrick Amos MD Cardiology:increase arb to twice daily c andriy echo and renal artery duplex His updated medication list for this problem includes: Losartan 50 Mg Tablet (Losartan) ..... Take 1 tablet by mouth twice a day Chlorthalidone 25 Mg Tablet (Chlorthalidone) ..... Take 1 tablet by mouth once a day Metoprolol Tartrate 50 Mg Tablet (Metoprolol tartrate) ..... Take 1 tablet by mouth twice a day BP today: 165/93 P rior BP: 124/67 (06/13/2024) Derrick Amos MD Cardiology:Stopped smoking in Derrick Amos MD Cardiology:Stopped smoking in Derrick Amos MD Cardiology: H is updated medication list for this problem includes: Atorvastatin 40 Mg Tablet (Atorvastatin) ..... Take 1 tablet by mouth everyday at bedtime Derrick Amos MD Cardiology: H is updated medication list for this problem includes: Losartan 50 Mg Tablet (Losartan) ..... Take 1 tablet by mouth once daily Jardiance 10 Mg Tablet (Empagliflozin) Metformin (glucophage Xr) 500 Mg Tablet Extended Release 24 Hr (Metformin (glucophage xr)) Derrick Amos MD Cardiology:This visi t has been a part of the consistent, comprehensive, and ongoing management of the chronic medical condition(s) listed above for the patient. H is updated medication list for this problem includes: Losartan 50 Mg Tablet (Losartan) ..... Take 1 tablet by mouth once daily Chlorthalidone 25 Mg Tablet (Chlorthalidone) ..... Take 1 tablet by mouth once a day Metoprolol Tartrate 50 Mg Tablet (Metoprolol tartrate) ..... Take 1 tablet by mouth twice a day BP today: 124/67 P rior BP: 114/68 (02/21/2024) Derrick Amos MD Cardiology:recetn ex acerbtion r esults will be obtained from Alfredo Amos MD Cardiology Derrick Amos MD Cardiology:The Patie nt was reencouraged to stop smoking. Derrick Amos MD Cardiology: T he following medications were removed from the medication list: Lisinopril 40 Mg Tablet (Lisinopril) ..... Take 1 tablet by mouth once a day Amlodipine 10 Mg Tablet (Amlodipine) ..... Take 1 tablet by mouth once a day His updated medication list for this problem includes: Losartan 50 Mg Tablet (Losartan) ..... Take 1 tablet by mouth once daily Chlorthalidone 25 Mg Tablet (Chlorthalidone) ..... Take 1 tablet by mouth once a day Metoprolol Tartrate 50 Mg Tablet (Metoprolol tartrate) ..... Take 1 tablet by mouth twice a day BP today: 114/68 P rior BP: 169/93 (01/25/2024) Derrick Amos MD Cardiology:LDL 172 I n light of his H/o CVA, this LDL is markedly elevated. If on repeat labs his LDL is elevated he is an excellent candidate for PCSK-9 inhibitor H is updated medication list for this problem includes: Atorvastatin 40 Mg Tablet (Atorvastatin) ..... Take 1 tablet by mouth everyday at bedtime Derrick Amos MD Cardiology: H e states he has Hx of arrhythmias Derrick Amos MD Cardiology:renal ate ry duplex neg for ANGELINA a dd chlorthalidone H is updated medication list for this problem includes: Chlorthalidone 25 Mg Tablet (Chlorthalidone) ..... Take 1 tablet by mouth once a day Lisinopril 40 Mg Tablet (Lisinopril) ..... Take 1 tablet by mouth once a day Metoprolol Tartrate 50 Mg Tablet (Metoprolol tartrate) ..... Take 1 tablet by mouth twice a day Amlodipine 10 Mg Tablet (Amlodipine) ..... Take 1 tablet by mouth once a day BP today: 169/93 P rior BP: 176/95 (01/07/2024) Derrick Amos MD Cardiology: Q uit Derrick Amos MD Cardiology:He states he has Hx o f arrhythmias Derrick Amos MD Cardiology:Continue inhalers as needed Derrick Amos MD Cardiology:On SGLT-2 inhibitor and metformin His updated medication list for this problem includes: Jardiance 10 Mg Tablet (Empagliflozin) Metformin (glucophage Xr) 500 Mg Tablet Extended Release 24 Hr (Metformin (glucophage xr)) Lisinopril 40 Mg Tablet (Lisinopril) ..... Take 1 tablet by mouth once a day Derrick Amos MD Cardiology: H is updated medication list for this problem includes: Metoprolol Tartrate 50 Mg Tablet (Metoprolol tartrate) ..... Take 1 tablet by mouth twice a day Lisinopril 40 Mg Tablet (Lisinopril) ..... Take 1 tablet by mouth once a day Amlodipine 10 Mg Tablet (Amlodipine) ..... Take 1 tablet by mouth once a day BP today: 176/95 P rior BP: 155/90 (05/11/2023) Derrick Amos MD Cardiology:Quit Derrick Amos MD Cardiology: S tent to carotid. O n statin Derrick Amos MD Cardiology:Per pcp Derrick Amos MD Cardiology:Stent to carotid. he should be on astatin but I am not sure. Derrick Amos MD Cardiology:Not sure what he is on but he will see his PCP for a list of current meds B P today: 155/90 P rior BP: 176/100 (04/12/2023) Derrick Amos MD Cardiology:low risk for colonoscopy. BP is not well controlled, will have him come back in a week for BP check Derrick Amos MD Cardiology:not well controlled W ill add olmesartan 20mg daily B P today: 176/100 P rior BP: 130/80 (01/29/2019) His updated medication list for this problem includes: Metoprolol Tartrate 50 Mg Tablet (Metoprolol tartrate) ..... Take 1 tablet by mouth twice a day Lisinopril 40 Mg Tablet (Lisinopril) ..... Take 1 tablet by mouth once a day Amlodipine 10 Mg Tablet (Amlodipine) ..... Take 1 tablet by mouth once a day Olmesartan 20 Mg Tablet (Olmesartan) ..... Take 1 tablet by mouth once a day Derrick Amos MD Cardiology:The patie nt is between 55-77 years old and has smoked at least 30 pack years. The patient is either a current smoker or has quit within the past 15 years. T he patient is recommended to have low dose CT scan for lung cancer screening. Has been counseled regarding the importance of tobacco cessation and abstinence. Shared decision making during this office visit included discussion of the benefits and harms of screening, possible future recommendations of follow-up diagnostic testing, and total amount of radiation exposure. The patient was recommended to have annual low dose CT scan for lung cancer screening and is willing to undergo diagnosis and treatment. Angel Quarles Cardiology:His [facility] ed medication list for this problem includes: Lisinopril 40 Mg Oral Tablet (Lisinopril) ..... Take 1 tab onc daily Metformin Hcl 1000 Mg Oral Tablet (Metformin hcl) ..... Take 1 tab twice daily Angel Robina Cardiology:His [facility] ed medication list for this problem includes: Atorvastatin Calcium 20 Mg Oral Tablet (Atorvastatin calcium) ..... Take 1 tab once daily Angel Quarles Cardiology:BP today: 130/80 His updated medication list for this problem includes: Metoprolol Tartrate 50 Mg Oral Tablet (Metoprolol tartrate) ..... Take 1 tab twice daily Lisinopril 40 Mg Oral Tablet (Lisinopril) ..... Take 1 tab onc daily Amlodipine Besylate 10 Mg Oral Tablet (Amlodipine besylate) ..... Take 1 tab once daily Angel Quarles Cardiology:He report s many years ago he had irregular heart beats. Angel Quarles Cardiology:He is a h eavy smoker. He has exertional dyspnea. EKG does not show any major abnormalities. He has multiple risk factors. Will obtain an echo to assess LV function. If LV function is preserved, he can proceed to surgery at this time. Angel Quarles Cardiology:Pt is a c andidate for hip surgery. Denies hx of [place] or chest pain. He reports many years ago he had irregular heart beats. He is a heavy smoker. He has exertional dyspnea. EKG does not show any major abnormalities. He has multiple risk factors. Will obtain an echo to assess LV function. If LV function is preserved, he can proceed to surgery at this time. Angel Quarles Date Name Complete Echo Renal Artery Duplex PROBNP, N TERMINAL LIPID PANEL COMPREHENSIVE METABO LIC PANEL, W/EGFR Renal Artery Duplex Low Dose Lung CT Complete Echo HISTORY OF PROCEDURES Procedure Date Procedure Name Provider Procedure Notes S tatus Complex e/m visit add on Derrick Amos MD completed EKG Derrick Amos MD completed Complex e/m visit add on Derrick Amos MD completed EKG Derrick Amos MD completed Counseling LDCT Marshal Milner MD compl eted EKG Marshal Milner MD completed
--- OUTSIDE RECORDS SUMMARY | 2024-11-25 12:06 | XMS_ITS | Clinical Summary ---
Author Organization [facility] Facility Address [address] [address] [address] Care Team Providers Care Facility Practice Specialist Name Role Phone Naila Moreno MD Primary Care Provider [phone] Social History Tobacco Use Types Packs/Day Years Used Date Smoking Tobacco: Never Assessed Sex and Gender Information Value Date Recorded Sex Assigned at Not on file Legal Sex Male 11:40 AM EDT Gender Identity Not on file Sexual Orientation Not on file Plan of Treatment Health Maintenance Due Date Last Done Comments Colorectal Cancer Screening: Annual FOBT 2001 Colorectal Cancer Screening: Colonoscopy 2001 Colorectal Cancer Screening: Sigmoidoscopy 2001 Pneumococcal Vaccine: 65+ Ye ars (1 of 1 - PCV) 2017 Influenza Vaccine (#1) 2024 Hepatitis B Vaccine Aged Out No longe r eligible based on patient's age to complete this topic Insurance [facility] MEDICARE Care Teams Facility Practice Specialist Relationship Specialty Start Date End Date Naila Moreno MD [address] [place] [address] PCP - General Internal Medicine 11/30/23
--- OUTSIDE RECORDS SUMMARY | 2024-11-25 12:06 | XMS_ITS | Patient Health Summary ---
Author Organization [facility] [employer] Address [address] [place] [address] Care Team Providers Care Contact Lens Cutter Name Role Phone Unavailable Primary Care Provider Unavailabl e Note from [facility],non-owned Affiliates and Associated Physician Practices is amultiple site organization consisting of ambulatory clinics and hospital sitesin [place], [place], [place]. This disclosure is being madepursuant to the Care Everywhere program and may not contain all information available regarding this patient. Last updated 18.[facility] [employer] Allergies No known active allergies Medications * Be aware that medications may not be up to date on this document. Alwaysverify current medications with the patient. * rOPINIRole (Requip) 0.5 MG tablet Take 1 (one) tablet by mouth at bedtime Reasons: Restless Leg Syndrome * albuterol (Proventil; Ventolin) 2 MG/5ML syrup Take 6.25 mL by mouth 3 times daily Reasons: COPD * cyclobenzaprine (Flexeril) 10 MG tablet Take 1 (one) tablet by mouth 2 times daily as needed for Muscle Spasms * atorvastatin (Lipitor) 40 MG tablet Take 1 (one) tablet by mouth at bedtime * omeprazole (PriLOSEC) 40 MG capsule Take 1 (one) capsule by mouth at bedtime * aspirin (Aspirin) 81 MG chew tablet(Started 03/09/2023) Take 1 (one) tablet by mouth once daily * metFORMIN ER 24hr (Glucophage XR) 500 MG tablet(Started 03/08/2023) Take 1 (one) tablet by mouth daily with dinner Start on 03/09/2023 * hydroCHLOROthiazide (Hydrodiuril) 25 MG tablet(Started 02/22/2023) Take 1 (one) tablet by mouth once daily * metoprolol tartrate IR (Lopressor) 50 MG tablet(Started 02/23/2023) Take 1 (one) tablet by mouth 2 times daily * clopidogrel (plaVIX) 75 MG tablet(Started 03/22/2023) Take 1 (one) tablet by mouth once daily 11 refills by 03/21/2024 Active Problems Problem Noted Date Diagnosed Date Shock 03/05/2023 Stenosis of right internal carotid artery 2022 Social History Tobacco Use Types Packs/Day Years Used Date Smoking Tobacco: Every Day Cigarettes Smokeless Tobacco: Never Tobacco Cessation:Ready to Q uit: Not Asked; Counseling Given: Not Answered Alcohol Use Standard Drinks/Week Comments Not Currently 0 (1 standard drink = 0.6 oz pur e alcohol) Overall Financial Resource Strain (CARDIA) Answe r Date Recorded How hard is it for you to pa y for the very basics like food, housing, medical care, and heating? Not hard at all 03/03/2023 PHQ-2 Answer Date Recorded PHQ2 TOTAL SCORE 0 03/07/2023 [facility] - Occupational Stress Questionnaire Answer Date Recorded Do you feel stress - tense, restless, nervous, or anxious, or unable to sleep at night because your mind is troubled all the time - these days? To some extent 03/03/2023 Hunger Vital Sign Answer Date Recorded Within the past 12 months, y ou worried that your food would run out before you got the money to buy more. Sometimes true Within the past 12 months, t he food you bought just didn't last and you didn't have money to get more. Sometimes true PRAPARE - Transportation Answer Date Re corded In the past 12 months, has l ack of transportation kept you from medical appointments or from getting medications? No 02/15 In the past 12 months, has l ack of transportation kept you from meetings, work, or from getting things needed for daily living? No 03/03/2023 Housing Stability Vital Sign Answer Cody e Recorded In the last 12 months, was t here a time when you were not able to pay the mortgage or rent on time? No 03/03/2023 In the last 12 months, how many places have you lived? 1 03/03/2023 In the last 12 months, was t here a time when you did not have a steady place to sleep or slept in a m[facility]p (including now)? No 03/03/2023 Sex and Gender Information Value Date Recorded Sex Assigned at Not on file Gender Identity Not on file Sexual Orientation Not on file Last Filed Vital Signs Vital Sign Reading Time Taken Comments Blood Pressure 116/61 03/08/2023 4:00 PM CDT Pulse 57 03/08/2023 4:00 PM CDT Temperature 36.7 C (98 F) 03/08/2023 12:00 PM CDT Respiratory Rate 21 03/08/2023 4:00 PM CDT Oxygen Saturation 97% 03/08/2023 4:00 PM CDT Inhaled Oxygen Concentration - - Weight 58.8 kg (129 lb 10.1 oz) 03/08/2023 4:08 AM CDT Height 162.6 cm (5' 4 ) 03/06/2023 12:3 0 PM CDT Body Mass Index 22.25 03/06/2023 12:30 PM CDT Medical Devices Implanted Type Area Rolls Baker Device Identifier Shelf Expiration Date Model / Serial / Lot Stent Enroute Uber Flx 7mm .065in 40mm Implanted:Qty : 1 on 03/05/2023 by Betty Crane DO at [facility] Stent - Vascular Right: Arterial 23press 04/16/2025 [id number] / / [id number] Description:IMPLANTED RIGHT CAROTID ARTERY Procedures * VAS CAROTID DUPLEX BILATERAL(Performed 03/22/2023) Performed for Carotid stenosis, bilateral * APHERESIS/TRANSFUSION ORDER(Performed 2023) * CARDIAC RHYTHM STRIP ORDER(Performed 2023) * GLUCOSE - POINT OF CARE(Performed 03/08/2023) * MAGNESIUM BLOOD(Performed 03/08/2023) * RENAL FUNCTION PANEL(Performed 03/08/2023) * CBC W AUTO DIFFERENTIAL(Performed 03/08/2023) * GLUCOSE - POINT OF CARE(Performed 03/07/2023) * GLUCOSE - POINT OF CARE(Performed 03/07/2023) * GLUCOSE - POINT OF CARE(Performed 03/07/2023) * GLUCOSE - POINT OF CARE(Performed 03/07/2023) * MAGNESIUM BLOOD(Performed 03/07/2023) * RENAL FUNCTION PANEL(Performed 03/07/2023) * CBC W AUTO DIFFERENTIAL(Performed 03/07/2023) * GLUCOSE - POINT OF CARE(Performed 03/06/2023) * CT ANGIO BRAIN AND NECK(Performed 03/06/2023) Performed for Cerebrovascular accident (CVA) due to thrombosis of precerebral artery (HCC) * CT HEAD WO CONTRAST(Performed 03/06/2023) Performed for Cerebrovascular accident (CVA) due to thrombosis of precerebral artery (HCC) * GLUCOSE - POINT OF CARE(Performed 03/06/2023) * CARDIAC EKG ORDER(Performed 03/06/2023) * GLUCOSE - POINT OF CARE(Performed 03/06/2023) * ECHO COMPLETE W CONTRAST(Performed 03/06/2023) Performed for Stenosis of right internal carotid artery, Cerebrovascular accident (CVA) due to thrombosis of precerebral artery (HCC) * GLUCOSE - POINT OF CARE(Performed 03/06/2023) * GLUCOSE - POINT OF CARE(Performed 03/06/2023) * MAGNESIUM BLOOD(Performed 03/06/2023) * RENAL FUNCTION PANEL(Performed 03/06/2023) * CBC W AUTO DIFFERENTIAL(Performed 03/06/2023) * GLUCOSE - POINT OF CARE(Performed 03/05/2023) * GLUCOSE - POINT OF CARE(Performed 03/05/2023) * PT EVAL AND TREAT(Performed 03/05/2023) * XR CHEST 1VW PORTABLE(Performed 03/05/2023) Performed for Stenosis of right internal carotid artery * EKG 12-LEAD(Performed 03/05/2023) Performed for Chest pain, unspecified type * GLUCOSE - POINT OF CARE(Performed 03/05/2023) * TROPONIN I(Performed 03/05/2023) * PT-INR(Performed 03/05/2023) * PTT(Performed 03/05/2023) * CBC W/O DIFFERENTIAL(Performed 03/05/2023) * LACTIC ACID BLOOD(Performed 03/05/2023) * RENAL FUNCTION PANEL(Performed 03/05/2023) * PT EVAL AND TREAT(Performed 03/05/2023) * GLUCOSE - POINT OF CARE(Performed 03/05/2023) * ENDOTRACHEAL TUBE NOTE(Performed 03/05/2023) * HYBRID IMAGING(Performed 03/05/2023) Performed for Stenosis of right internal carotid artery * ARTERIAL LINE NOTE(Performed 03/05/2023) * IL TRNSCATH PLCMT IVASC STNT; DIST EMBOLIC PROTECT(Performed 03/05/2023) * BLOOD TYPE VERIFICATION(Performed 03/05/2023) * TYPE + SCREEN PANEL(Performed 03/05/2023) * GLUCOSE - POINT OF CARE(Performed 03/05/2023) * LIPID PROFILE(Performed 03/05/2023) * RENAL FUNCTION PANEL(Performed 03/05/2023) * CBC W AUTO DIFFERENTIAL(Performed 03/05/2023) * GLUCOSE - POINT OF CARE(Performed 03/04/2023) * GLUCOSE - POINT OF CARE(Performed 03/04/2023) * MRI BRAIN WO CONTRAST(Performed 03/04/2023) Performed for Left-sided weakness * GLUCOSE - POINT OF CARE(Performed 03/04/2023) * GLUCOSE - POINT OF CARE(Performed 03/04/2023) * GLUCOSE - POINT OF CARE(Performed 03/03/2023) * GLUCOSE - POINT OF CARE(Performed 03/03/2023) * GLUCOSE - POINT OF CARE(Performed 03/03/2023) * GLUCOSE - POINT OF CARE(Performed 03/03/2023) * COMPREHENSIVE METABOLIC PANEL(Performed 03/03/2023) * CBC W/O DIFFERENTIAL(Performed 03/03/2023) * HEMOGLOBIN A1C(Performed 03/03/2023) Results * VAS CAROTID DUPLEX BILATERAL (03/22/2023 11:26 AM CDT) Anatomical Region Laterality Modality Neck Ultrasound 03/22/2023 10:5 9 AM CDT Narrative Procedure Note Homar Back MD - 03/22/2023 [facility] [place] [address], [address] [place] [address] Carotid Duplex Report Pat.Name: CRISS CALERO Pat.ID: [id number] St.Date: 03/22/2023 Refer.MD: AIRAM LEGGETT Exam Time: 10:59:00 AM Study Type:Carotid Age: 6 1950,73Y Sex: MALE Sonogrphr: Sherri Thurman RVT Pat. Stat.:Outpatient CPT - 4: 72068 Reason for Study: Carotid stent (right) History / Clinical: Hypertension, Diabetes, Hyperlipidemia, Smoking - current, Stent, TIA Procedures: Carotid Duplex - Bilateral Race: 1 Visit ID: [id number] ++++++++++++++++++++++++++++++++++++ SUMMARY: ++++++++++++++++++++++++++++++++++++ There are no hemodynamically significant stenoses in either the right or left extracranial carotid arterial system. There is normal antegrade flow in both vertebral arteries. ++++++++++++++++++++++++++++++++++++ FINDINGS: ++++++++++++++++++++++++++++++++++++ Procedure: The extracranial carotid systems were examined bilaterally with duplex and color flow imaging as well as spectral Doppler analysis. Study Quality: This study is of adequate technical quality. Rt CCA: No obvious plaquing seen. Rt ICA: A stent is visualized in the right ICA and is widely patent. Rt Vert: Antegrade flow within the right vertebral Artery. Lt CCA: Intimal thickening is present Lt Bulb: There is irregular, heterogenous plaque in the bulb.. Lt ICA: No obvious plaquing seen. Lt Vert: Antegrade flow within the left vertebral Artery. Carotid Findings: Right Left Verteb.Flw Antegrade Antegrade ++++++++++++++++++++++++++++++++++++ MEASUREMENTS: ++++++++++++++++++++++++++++++++++++ DOPPLER ICA-CCA ratio Left ICA-CCA ra -1 Right ICA-CCA r -0.9 Left Bulb Bulb PSV 95.1 cm/s Bulb EDV 26.7 cm/s Left CCA Dist CCA Dist PSV 77.7 cm/s CCA Dist EDV 23.6 cm/s Left CCA Mid CCA Mid PSV 74.6 cm/s CCA Mid EDV 22.4 cm/s Left CCA Prox CCA Prox PSV 69 cm/s CCA Prox EDV 17.4 cm/s Left ECA ECA PSV 144 cm/s ECA EDV 21.7 cm/s Left ICA Dist ICA Dist PSV 83.2 cm/s ICA Dist EDV 26 cm/s Left ICA Mid ICA Mid PSV 89.2 cm/s ICA Mid EDV 28.6 cm/s Left ICA Prox ICA Prox PSV 70.2 cm/s ICA Prox EDV 30.3 cm/s Left ICA/CCA ICA/CCA PSV 1.15 Left Vertebral Vertebral PSV 49.7 cm/s Vertebral EDV 16.8 cm/s Right Bulb Bulb PSV 80.8 cm/s Bulb EDV 23.6 cm/s Right CCA Dist CCA Dist PSV 80.8 cm/s CCA Dist EDV 20.5 cm/s Right CCA Mid CCA Mid PSV 75.8 cm/s CCA Mid EDV 17.4 cm/s Right CCA Prox CCA Prox PSV 71.4 cm/s CCA Prox EDV 11.2 cm/s Right ECA ECA PSV 130 cm/s ECA EDV 9.32 cm/s Right ICA Dist ICA Dist PSV 52.2 cm/s ICA Dist EDV 16.2 cm/s Right ICA Mid ICA Mid PSV 60.9 cm/s ICA Mid EDV 11.8 cm/s Right ICA Prox ICA Prox PSV 67.1 cm/s ICA Prox EDV 21.1 cm/s Right ICA/CCA ICA/CCA PSV 0.83 Right Vertebral Vertebral PSV 51.6 cm/s Vertebral EDV 11.8 cm/s Signed 03/22/2023 03:26 PM Homar Back MD Betty Crane DO VASCULAR LAB ORDER ERNESTINE * APHERESIS/TRANSFUSION ORDER (2023 1:24 AM CDT) Narrative 2023 1:24 AM CDT Ordered by an unspecified provider. Scanned Document NURSING - VITAL SIGN S AND ASSESSMENT * CARDIAC RHYTHM STRIP ORDER (2023 1:24 AM CDT) Narrative 2023 1:24 AM CDT Ordered by an unspecified provider. Scanned Document CARDIAC SERVICES ORD ERABLES * (ABNORMAL) GLUCOSE - POINT OF CARE (03/08/2023 11:10 AM CDT) Only the most recent of23 resultswithin the time period is included. [facility] [address] Glucose WB/POC 108(H) 70 - 106 mg/dL 03/08/2023 12:46 PM CDT [facility] Specimen Type Cap Fingerstick 2022 12:46 PM CDT [facility] Blood BLOOD SPECIMEN / Unknown 03/08/2023 11:10 AM CDT 03/08/2023 12:46 PM CDT Angeles Tang MD LAB - POINT OF CARE ORDERABLES [facility] [address] [place] [address] * CBC W AUTO DIFFERENTIAL (03/08/2023 4:15 AM CDT) Only the most recent of4 resultswithin the time period is included. [facility] [address] WBC 7.0 4.4 - 10.7 x10E9/L 03/08/2023 4:32 AM CDT [facility] WBC Corrected 03/08/2023 4:32 AM CDT [facility] RBC 4.54 3.80 - 5.40 x10E12/L 03/08/2023 4:32 AM CDT [facility] Hemoglobin 13.8 12.0 - 17.6 gm/dL 03/08/2023 4:32 AM CDT [facility] Hematocrit 40.4 35.2 - 51.7 % 03/08/2023 4:32 AM CDT [facility] MCV 89.0 80.7 - 98.3 fl 03/08/2023 4:32 AM CDT [facility] MCH 30.4 26.7 - 34.0 pg 03/08/2023 4:32 AM CDT [facility] MCHC 34.2 30.8 - 35.9 gm/dL 03/08/2023 4:32 AM CDT [facility] Platelet Count 230 153 - 416 x10E9/L 03/08/2023 4:32 AM CDT [facility] RDW-CV 13.7 12.1 - 14.9 % 03/08/2023 4:32 AM CDT [facility] MPV 9.5 9.4 - 12.9 fl 03/08/2023 4:32 AM CDT [facility] Neutrophils % 52.9 44.0 - 73.0 % 03/08/2023 4:32 AM CDT [facility] Lymphocytes % 37.4 20.0 - 43.0 % 03/08/2023 4:32 AM CDT [facility] Monocytes % 7.2 5.0 - 13.0 % 03/08/2023 4:32 AM CDT [facility] Eosinophils % 1.7 0.0 - 6.0 % 03/08/2023 4:32 AM CDT [facility] Basophils % 0.4 0.0 - 2.0 % 03/08/2023 4:32 AM CDT [facility] Immature Granulocytes 0.4 0 - 1 % 03/08/2023 4:32 AM CDT [facility] Neutrophil Absolute 3.69 2.01 - 7.14 x10E9/L 03/08/2023 4:32 AM CDT [facility] Lymphocytes Absolute 2.61 1.07 - 3.94 x10E9/L 03/08/2023 4:32 AM CDT [facility] Monocytes Absolute 0.50 0.26 - 1.07 x10E9/L 03/08/2023 4:32 AM CDT [facility] Eosinophils Absolute 0.12 0 - 0.47 x10E9/L 03/08/2023 4:32 AM CDT [facility] Basophils Absolute 0.03 0 - 0.08 x10E9/L 03/08/2023 4:32 AM CDT [facility] Immature Granulocytes Absolute 0.03 0.00 - 0.06 x10E9/L 03/08/2023 4:32 AM CDT [facility] nRBC Auto 0 /100 WBC 03/08/2023 4:32 AM CDT [facility] Blood BLOOD SPECIMEN / Unknown Venipuncture / Unknown 03/08/2023 4:15 AM CDT 03/08/2023 4:22 AM CDT George Urban MD LAB - HEMATOLOGY ORD ERABLES [facility] [address] [place] [address] * (ABNORMAL) RENAL FUNCTION PANEL (03/08/2023 4:15 AM CDT) Only the most recent of5 resultswithin the time period is included. Glucose 133(H) 70 - 105 mg/dL 03/08/2023 4:43 AM CDT [facility] Sodium 140 136 - 145 mmol/L 03/08/2023 4:43 AM CDT [facility] Potassium 4.4 3.5 - 5.1 mmol/L 03/08/2023 4:43 AM CDT [facility] Chloride 108(H) 98 - 107 mmol/L 03/08/2023 4:43 AM CDT [facility] CO2 24 23 - 31 mmol/L 03/08/2023 4:43 AM CDT [facility] Calcium 9.7 8.4 - 10.4 mg/dL 03/08/2023 4:43 AM CDT [facility] Anion Gap 8 8 - 18 mmol/L 03/08/2023 4:43 AM CDT [facility] BUN 18 8.4 - 25.7 mg/dL 03/08/2023 4:43 AM CDT [facility] Creatinine 0.90 0.72 - 1.25 mg/dL 03/08/2023 4:43 AM CDT [facility] Albumin 4.1 3.2 - 4.6 gm/dL 03/08/2023 4:43 AM CDT [facility] Phosphorus 3.3 2.3 - 4.7 mg/dL 03/08/2023 4:43 AM CDT [facility] eGFR by CKD-EPI >90 >=90 mL/min/1.7 3 m2 03/08/2023 4:43 AM CDT [facility] Blood BLOOD SPECIMEN / Unknown Venipuncture / Unknown 03/08/2023 4:15 AM CDT 03/08/2023 4:22 AM CDT George Urban MD LAB - CHEMISTRY ORDEsteban SAENZ Performing Organization Address [facility] Co de Phone Number [facility] [address] [place] [address] * MAGNESIUM BLOOD (03/08/2023 4:15 AM CDT) Only the most recent of3 resultswithin the time period is included. [facility] Magnesium 1.9 1.6 - 2.6 mg/dL 03/08/2023 4:43 AM CDT [facility] Blood BLOOD SPECIMEN / Unknown Venipuncture / Unknown 03/08/2023 4:15 AM CDT 03/08/2023 4:22 AM CDT Stu Medeiros MD LAB - CHEMISTRY ORDEsteban [facility] Performing Organization Address [facility] de Phone Number [facility] [address] [place] [address] * CT ANGIO BRAIN AND NECK (03/06/2023 6:36 PM CDT) Anatomical Region Laterality Modality Head Computed Tomogra phy 03/06/2023 7:24 PM CDT Impressions 03/06/2023 7:26 PM CDT IMPRESSION: 1.Widely patent right ICA stent. 2.No evidence of cervical or cerebrovascular occlusion or hemodynamically significant stenosis. > Interpreting Provider: Mitchel Bustamante MD on 03/06/2023 7:26 PM Narrative 03/06/2023 7:26 PM CDT PROCEDURE(s): CT ANGIO BRAIN AND NECK DATE AND TIME OF EXAM(s): 03/06/2023 6:38 PM INDICATION(s): I63.00: Cerebral infarction due to thrombosis of unspecified precerebral artery (CMS/HCC). COMPARISON(s): CT of the head performed immediately prior. MRI of the brain dated 03/04/2023. TECHNIQUE: Thin section CT angiography of the cervical vessels and [place] was performed using a multislice CT scanner, following the infusion of intravenous contrast material. Multiplanar and 3D reformats were created and evaluated. Dose reduction techniques were utilized. [employer] AI software was utilized for large vessel occlusion detection. Contrast: IOPAMIDOL 76 % IV SOLN:80 mL. FINDINGS: CTA NECK: The aortic arch and proximal great vessels are patent. The common carotid arteries are patent bilaterally. On the basis of NASCET criteria, there is 0% stenosis at the carotid bifurcations. The ICAs are patent bilaterally. A stent is seen at the right ICA which is widely patent. The vertebral arteries are patent. There is no significant stenosis, dissection, or aneurysm formation in the cervical vasculature. CTA HEAD: Contrast opacification is present in the distal internal carotid arteries (ICA), the distal vertebral arteries, the basilar artery and the proximal anterior (SHAILA), middle (MCA) and posterior cerebral arteries (INFRASTRUCTURE DESIGN ENGINEER). There is no evidence for intracranial aneurysm or cerebrovascular occlusion. Procedure Note Mitchel Bustamante MD - 03/06/2023 PROCEDURE(s): CT ANGIO BRAIN AND NECK DATE AND TIME OF EXAM(s): 03/06/2023 6:38 PM INDICATION(s): I63.00: Cerebral infarction due to thrombosis of unspecified precerebral artery (CMS/HCC). COMPARISON(s): CT of the head performed immediately prior. MRI of the brain dated 03/04/2023. TECHNIQUE: Thin section CT angiography of the cervical vessels and [place] was performed using a multislice CT scanner, following the infusion of intravenous contrast material. Multiplanar and 3D reformats were created and evaluated. Dose reduction techniques were utilized. [employer] AI software was utilized for large vessel occlusion detection. Contrast: IOPAMIDOL 76 % IV SOLN:80 mL. FINDINGS: CTA NECK: The aortic arch and proximal great vessels are patent. The commoncarotid arteries are patent bilaterally. On the basis of NASCET criteria, thereis 0% stenosis at the carotid bifurcations. The ICAs are patent bilaterally.A stent is seen at the right ICA which is widely patent. The vertebral arteries are patent. There is no significant stenosis, dissection, or aneurysm formation in the cervical vasculature. CTA HEAD: Contrast opacification is present in the distal internal carotidarteries (ICA), the distal vertebral arteries, the basilar artery and theproximal anterior (SHAILA), middle (MCA) and posterior cerebral arteries (INFRASTRUCTURE DESIGN ENGINEER).There is no evidence for intracranial aneurysm or cerebrovascular occlusion. IMPRESSION: 1.Widely patent right ICA stent. 2.No evidence of cervical or cerebrovascular occlusion orhemodynamically significant stenosis. > Interpreting Provider: Mitchel Bustamante MD on 03/06/2023 7:26 PM Stu Medeiros MD CT ORDERABLES * CT HEAD NON CONTRAST (03/06/2023 6:35 PM CDT) Anatomical Region Laterality Modality Head Computed Tomogra phy 03/06/2023 6:57 PM CDT Impressions 03/06/2023 7:00 PM CDT IMPRESSION: No acute intracranial abnormalities. > Interpreting Provider: Mitchel Bustamante MD on 03/06/2023 7:00 PM Narrative 03/06/2023 7:00 PM CDT PROCEDURE(s): CT HEAD WO CONTRAST DATE AND TIME OF EXAM(s): 03/06/2023 6:35 PM INDICATION(s): I63.00: Cerebral infarction due to thrombosis of unspecified precerebral artery (CMS/HCC) COMPARISON(s): MRI of the brain dated 03/04/2023. TECHNIQUE: CT of the head was performed from the skull base to the vertex without contrast administration. Multiplanar reconstructions were reviewed. Dose reduction techniques were utilized. [employer] AI was utilized for evaluation for intracranial hemorrhage. FINDINGS: There is no visible soft tissue trauma or skull fracture. There is no acute intracranial hemorrhage, midline shift, mass effect, or intra-axial or extra-axial fluid collection. Cr-white matter differentiation is preserved. There is no evidence of acute cortical infarct. The ventricles and sulci are unremarkable. The basal cisterns are patent. The orbital contents are unremarkable bilaterally. The visualized paranasal sinuses and mastoid air cells are clear. Procedure Note Mitchel Bustamante MD - 03/06/2023 PROCEDURE(s): CT HEAD WO CONTRAST DATE AND TIME OF EXAM(s): 03/06/2023 6:35 PM INDICATION(s): I63.00: Cerebral infarction due to thrombosis of unspecified precerebral artery (CMS/HCC) COMPARISON(s): MRI of the brain dated 03/04/2023. TECHNIQUE: CT of the head was performed from the skull base to thevertex without contrast administration. Multiplanar reconstructions werereviewed. Dose reduction techniques were utilized. [employer] AI was utilized forevaluation for intracranial hemorrhage. FINDINGS: There is no visible soft tissue trauma or skull fracture. There is noacute intracranial hemorrhage, midline shift, mass effect, or intra-axial or extra-axial fluid collection. Cr-white matter differentiation is preserved. There is no evidence of acute cortical infarct. Theventricles and sulci are unremarkable. The basal cisterns are patent. The orbital contents are unremarkable bilaterally. The visualizedparanasal sinuses and mastoid air cells are clear. IMPRESSION: No acute intracranial abnormalities. > Interpreting Provider: Mitchel Bustamante MD on 03/06/2023 7:00 PM Stu Medeiros MD CT ORDERABLES * CARDIAC EKG ORDER (03/06/2023 5:14 PM CDT) Narrative 03/06/2023 5:14 PM CDT Ordered by an unspecified provider. Scanned Document CARDIAC SERVICES ORD ERABLES * ECHO COMPLETE W CONTRAST (03/06/2023 1:50 PM CDT) BSA [id number] m2 [facility] CV FUJI PACS LV biplane EF 59 52 - 72 % [facility] CV FUJI PACS LV A2C EF 59 48 - 76 % [facility] CV FUJ I PACS LV A4C EF 64 46 - 74 % [facility] CV FUJ I PACS LV stroke vol 2D teich 16.53 ml [facility] CV FUJI PACS LV stroke vol index A4C MOD 36.253 ml [facility]SM CV FUJI PACS LVIDd 3.53 4.2 - 5.8 cm [facility] CV FUJI PACS IVSd MM 1.041 0.6 - 1 cm [facility]SM CV FU JI PACS LVIDs 3.02 2.5 - 4.0 cm SSM CV FUJI PACS IVSd 2D 0.868 0.6 - 1 cm SSM CV FU JI PACS LVPWd 1.00 cm SSM CV FUJ I PACS Fractional Shortening 2D 14 28 - 44 % [facility]SM CV FUJI PACS LV ESV BP 22.182 21 - 61 mL SSM CV FU JI PACS LV ESV index BP 13.3 11 - 31 mL/m2 SSM CV FUJI PACS LV ESV A2C 20.366 15 - 75 mL SSM CV F U PACS LV EDV BP 53.895 mL [facility] CV [facility] I PACS LV ESV A4C 20.643 22 - 78 mL SSM CV F U PACS LV EDV index BP 32.3 34 - 74 mL/m2 SSM CV FUJI PACS LV EDV A2C 50.775 59 - 175 mL SSM CV FUJI PACS LV EDV A4C 56.619 mL SSM CV FU PACS LV ESV 2D 35.456 21 - 61 mL SSM CV FU JI PACS LV EDV 2D 51.986 62 - 150 mL [facility] LVOT diam 1.8 cm [facility] CV [facility] I PACS LVOT area 2.54 cm2 [facility] [place] PACS LV RWT 0.566 [facility] CV [facility] I PACS LV Ros[place] A4C 6.695 cm [facility] CV F U PACS LV mass m-mode 276.706 88 - 224 g [facility] CV [facility] PACS LV mass index m-mode 165.80 49 - 115 g/m2 [facility] CV [facility] PACS LA ESV A2C MOD Index 16 ml/m2 [facility] P[facility] LA ESV A4C MOD Index 22 ml/m2 [facility] CV [facility] PACS LA vol BP A-L 38.399 mL [facility] CV [facility] PACS RA vol index 13 mL/m2 [facility] CV [facility] PACS RA area 10.796 cm2 [facility] I PACS [id number] 5.818 cm [facility] I PACS EF M-Mode 62 % [facility] I PACS LA Size 4.595 cm [facility] I PACS LV stroke vol BP 31.713 mL [facility] CV [facility] PACS LVIDs index 1.81 1.3 - 2.1 cm/m2 [facility] CV FUJI PACS LV LVIDd index 2.12 2.2 - 3.0 cm/m2 [facility] CV [facility] PACS IVSs M-Mode 1.715 cm [facility] CV F U PACS LVPWs M-Mode 1.225 cm [facility] CV FUJI PACS LV Rosas A2C 6.521 cm [facility] CV F UJI PACS TR pk melo 252.9 cm/s [facility] CV [facility] I PACS TAPSE 1.868 1.7 cm [facility] CV [facility] I PACS TR pk grad 26 mmHg [facility] CV FU JI PACS PV pk melo 94.44 cm/s [facility] CV [facility] I PACS PV pk grad 4 mmHg [facility] CV FU JI PACS [id number] 4.93 cm [facility] CV FUJ I PACS Anatomical Region Laterality Modality Ultrasound Narrative 03/06/2023 6:46 PM CDT Left Ventricle: Left ventricle size is normal. Normal wall thickness. Normal systolic function with a visually estimated EF of 55 - 60%. Normal wall motion. Normal diastolic function. Left Ventricle Left ventricle size is normal. Normal wall thickness. Normal systolic function with a visually estimated EF of 55 - 60%. Normal wall motion. Normal diastolic function. Right Ventricle Right ventricle size is normal. Normal systolic function. Left Atrium Left atrium size is normal. Right Atrium Right atrium size is normal. IVC/SVC IVC diameter is less than or equal to 21 mm and decreases greater than 50% during inspiration; therefore the estimated right atrial pressure is normal (~3 mmHg). Mitral Valve Valve structure is normal. No restricted motion. No regurgitation. No stenosis. Tricuspid Valve Valve structure is normal. No restricted motion. Trace regurgitation. No stenosis. Aortic Valve Valve structure is trileaflet. No restricted motion. No regurgitation. No stenosis. Pulmonic Valve Valve structure is normal. No restricted motion. No regurgitation. No stenosis. Main pulmonary artery size is normal. Ascending Aorta Normal sized sinus of Valsalva (aortic root) and ascending aorta. Pericardium No pericardial effusion. Study Details Study quality was adequate. A complete 2D, color Doppler, spectral Doppler and M-mode echocardiogram was performed. The apical, parasternal, subcostal and suprasternal views were obtained. Definity ultrasound enhancing agent used. Technical difficulties due to patient supine position. Procedure Note Mark Wagner MD - 03/06/2023 Left Ventricle: Left ventricle size is normal. Normal wall thickness.Normal systolic function with a visually estimated EF of 55 - 60%. Normalwall motion. Normal diastolic function. Vern Shaffer MD ECHO CUPID * XR CHEST 1VW PORTABLE (03/05/2023 1:38 PM CDT) Anatomical Region Laterality Modality Chest Radiographic Sonia ging 03/05/2023 1:39 PM CDT Impressions 03/05/2023 1:40 PM CDT IMPRESSION: Mild central vascular distention with no pneumothorax status post central venous catheter insertion. > Interpreting Provider: Maurice Ochoa MD on 03/05/2023 1:40 PM Narrative 03/05/2023 1:40 PM CDT PROCEDURE: XR CHEST 1VW PORTABLE, DATE/TIME OF EXAM: 03/05/2023 1:38 PM, LOCATION [facility] INDICATION: I65.21: Occlusion and stenosis of right carotid artery ADDITIONAL CLINICAL INFORMATION: Ordering Provider Reason For Exam: cvc placement Technologist Note: Additional: PICC line placement COMPARISON: None. Findings: Nonstandard portable exam. Left plate and central is catheter tip supposing SVC. The heart size is upper normal. Atherosclerotic aorta. Apical pleural reaction. No lobar consolidation. Tiny amount of fluid in the minor fissure. The central vessels are engorged. No peripheral Arian B-lines. Plate and screw fixation lower cervical spine with what I suspect is a carotid vascular stent. Retrocardiac density presumed a small hiatal hernia. Procedure Note Maurice Ochoa MD - 03/05/2023 PROCEDURE: XR CHEST 1VW PORTABLE, DATE/TIME OF EXAM: 03/05/2023 1:38PM, LOCATION [facility] INDICATION: I65.21: Occlusion and stenosis of right carotid artery ADDITIONAL CLINICAL INFORMATION: Ordering Provider Reason For Exam: cvc placement Technologist Note: Additional: PICC line placement COMPARISON: None. Findings: Nonstandard portable exam. Left plate and central is catheter tip supposing SVC. The heart size is upper normal. Atherosclerotic aorta. Apical pleural reaction. No lobar consolidation. Tiny amount of fluid in the minor fissure. The central vessels are engorged. No peripheral Arian B-lines. Plate and screw fixation lower cervical spine with what I suspect is a carotid vascular stent. Retrocardiac density presumed a small hiatal hernia. IMPRESSION: Mild central vascular distention with no pneumothorax status postcentral venous catheter insertion. > Interpreting Provider: Maurice Ochoa MD on 03/05/2023 1:40 PM Stu Medeiros MD DIAGNOSTIC IMAGING O RDERABLES * EKG 12-LEAD (03/05/2023 12:40 PM CDT) Ventricular Rate 53 BPM [facility] Atrial Rate 53 BPM [facility] P-R Interval 136 ms [facility] QRS Duration ms 74 ms [facility] Q-T Interval ms 444 ms [facility] QTC Calculation (Bezet) 416 ms [facility] M[facility] Calculated P Preston 75 degrees [facility]USE Calculated R Preston 82 degrees [facility]USE Calculated T Preston 92 degrees [facility] Interpretation EKG Sinus bradycardia with marked sinus arrhythmia Otherwise normal ECG No previous ECGs available Confirmed by KULDEEP MELGAR MD ([id number]) on 03/05/2023 7:03:38 PM [facility] 03/05/2023 12:4 0 PM CDT 03/05/2023 7:03 PM CDT Stu Medeiros MD ECG ORDERABLES [facility] * TROPONIN I (03/05/2023 12:31 PM CDT) Pathologist [facility] Troponin I <0.010 <0.038 ng/mL 03/05/2023 1:14 PM CDT [facility] Blood BLOOD SPECIMEN / Unknown Venipuncture / Unknown 03/05/2023 12:31 PM CDT 03/05/2023 12:47 PM CDT Stu Medeiros MD LAB - CHEMISTRY JULIANA SAENZ [facility] [address] [place] [address] * PTT (03/05/2023 12:17 PM CDT) Pathologist [facility] PTT 33.8 23.0 - 38.4 sec 03/05/2023 1:02 PM CDT [facility] Blood BLOOD SPECIMEN / Unknown Venipuncture / Unknown 03/05/2023 12:17 PM CDT 03/05/2023 12:47 PM CDT Narrative [facility] - 03/05/2023 1:02 PM CDT Heparin Therapeutic Range for PTT: 69.0 - 110.0 seconds. Stu Medeiros MD LAB - COAGULATION OR DERABLES Performing Organization Address [facility] de Phone Number [facility] [id number] [place] [address] * PT-INR (03/05/2023 12:17 PM CDT) Pathologist [facility] PT 13.3 12.1 - 14.8 sec 03/05/2023 1:02 PM CDT [facility] INR 1.0 0.9 - 1.1 03/05/2023 1:02 PM CDT [facility] Blood BLOOD SPECIMEN / Unknown Venipuncture / Unknown 03/05/2023 12:17 PM CDT 03/05/2023 12:47 PM CDT [facility] - 03/05/2023 1:02 PM CDT Conventional Warfarin Anticoagulant Therapy: INR Reference Range: 2.0-3.0 Intensive Warfarin Anticoagulant Therapy: INR Reference Range: 2.5-3.5 Stu Medeiros MD LAB - COAGULATION OR DERABLES Performing Organization Address [facility] de Phone Number [facility] [id number] [place] [address] * (ABNORMAL) CBC W/O DIFFERENTIAL (03/05/2023 12:17 PM CDT) Only the most recent of2 resultswithin the time period is included. Pathologist [facility] WBC 11.0(H) 4.4 - 10.7 x10E9/L 03/05/2023 12:52 PM CDT [facility] RBC 4.46 3.80 - 5.40 x10E12/L 03/05/2023 12:52 PM CDT [facility] Hemoglobin 13.6 12.0 - 17.6 gm/dL 03/05/2023 12:52 PM CDT [facility] Hematocrit 39.4 35.2 - 51.7 % 03/05/2023 12:52 PM CDT [facility] MCV 88.3 80.7 - 98.3 fl 03/05/2023 12:52 PM CDT [facility] MCH 30.5 26.7 - 34.0 pg 03/05/2023 12:52 PM CDT [facility] MCHC 34.5 30.8 - 35.9 gm/dL 03/05/2023 12:52 PM CDT [facility] Platelet Count 252 153 - 416 x10E9/L 03/05/2023 12:52 PM CDT [facility] RDW-CV 13.5 12.1 - 14.9 % 03/05/2023 12:52 PM CDT [facility] MPV 9.0(L) 9.4 - 12.9 fl 03/05/2023 12:52 PM CDT [facility] Blood BLOOD SPECIMEN / Unknown Venipuncture / Unknown 03/05/2023 12:17 PM CDT 03/05/2023 12:47 PM CDT Stu Medeiros MD LAB - HEMATOLOGY ORD ERABLES [facility] [address] [place] [address] * LACTIC ACID BLOOD (03/05/2023 12:17 PM CDT) Lactic Acid 1.07 <=2 mmol/L 03/05/2023 1:02 PM CDT [facility] Blood BLOOD SPECIMEN / Unknown Venipuncture / Unknown 03/05/2023 12:17 PM CDT 03/05/2023 12:47 PM CDT Stu Medeiros MD LAB - CHEMISTRY ORDE RABLES [facility] [address] [place] [address] * ETT LINE PERFORMABLE (03/05/2023 9:23 AM CDT) Narrative Shanique Pino MD - 03/05/2023 9:23 AM CDT Anaya Warner APRN-CRNA 03/05/2023 9:24 AM Endotracheal Tube Placement: Patient Location: OR. Procedure: intubation (76122). Procedure Section: Sedation: under general anesthesia. Indications for Airway Management: anesthesia Induction: standard IV Patient Position: supine Mask Ventilation: easy with oral airway. Blade Type: Video Blade Size: 3 Laryngoscopy View: grade 1 (full cords) Intubation Adjuncts: video laryngoscope Tube: endotracheal tube Placement: oral Tube type: cuff - inflated Tube Size (MM): 7 Depth of Insertion (CM): 21 Cuff volume (mL): 8 Cuff Inflated With: air Number of Attempts: 1. Placement Verified By: direct visualization, bilateral breath sounds and CO2 monitor Tube secured with: adhesive tape. Dentition unchanged? Yes Difficult Airway? No. Staff Section Anesthesia Provider: Anaya Warner APRN-CRNA, Performed the procedure Shanique Pino MD GENERAL ANESTHESI A ORDERABLES * HYBRID IMAGING (03/05/2023 9:00 AM CDT) Narrative [facility] - 03/07/2023 3:01 PM CDT Please see the progress note. Betty Crane DO CARDIAC DIRECTOR OF CLINICAL EDUCATION R ADIANT Performing Organization Address City/State/[facility] Co de Phone Number [facility] [address] [place] [address] * ARTERIAL LINE PERFORMABLE (03/05/2023 7:49 AM CDT) Narrative Shanique Pino MD - 03/05/2023 7:49 AM CDT Anaya Warner APRN-CRNA 03/05/2023 7:50 AM Arterial Line Placement Procedure Note Patient Location: OR. Procedure: Arterial Line ([id number]). Procedure Section Indications: continuous blood pressure monitoring. Consent: informed consent was obtained for the procedure and a time out was performed for patient safety. Skin Prep: Chloraprep. Orientation: Left. Site: radial. Site Identification: palpation. Sterile Technique: small sterile fenestrated drape, sterile gloves, mask and cap. Gauge: 18. Seldinger Technique Used? Yes Line Secured with: Tegaderm. Procedure Tolerance: performed while patient under general anesthesia. Events: none. Patient Sedated? Yes Sedation Types: general anesthesia Staff Section Anesthesia Provider: Shanique Pino MD, Performed the procedure Shanique Pino MD GENERAL ANESTHESI A ORDERABLES * BLOOD TYPE VERIFICATION (03/05/2023 7:04 AM CDT) ABO Rh O POS 03/05/2023 7:5 9 AM CDT [facility] Blood Bank BLOOD SPECIMEN / Unknown Venipuncture / Unknown 03/05/2023 7:04 AM CDT 03/05/2023 7:08 AM CDT Betty Crane DO LAB - BLOOD BANK O RDERABLES Performing Organization Address [facility] de Phone Number [facility] [address] [place] [address] * TYPE + SCREEN PANEL (03/05/2023 6:55 AM CDT) ABO Rh O POS 03/05/2023 7:59 AM CDT [facility] Comment:No history; collect retype. Antibody Screen NEG 7:59 AM CDT [facility] Blood Bank BLOOD SPECIMEN / Unknown Venipuncture / Unknown 03/05/2023 6:55 AM CDT 03/05/2023 7:08 AM CDT Betty Crane DO LAB - BLOOD BANK O RDERABLES Performing Organization Address [facility] de Phone Number [facility] [address] [place] [address], [facility] [phone] * (ABNORMAL) LIPID PROFILE (03/05/2023 3:08 AM CDT) Cholesterol 174 <200 mg/dL 03/05/2023 4:43 AM CDT [facility] Triglycerides 223(H) <150 mg/dL 03/05/2023 4:43 AM CDT [facility] HDL Cholesterol 31(L) >40 mg/dL 3 4:43 AM CDT [facility] LDL Calculated 98 <130 mg/dL 03/05/2023 4:43 AM CDT [facility] VLDL Calculated 45(H) <=30 mg/dL 3 4:43 AM CDT [facility] Chol HDL Ratio 5.6(H) <4.5 03/05/2023 4:43 AM CDT [facility] LDL/HDL Ratio 3.2 <5.0 03/05/2023 4:43 AM CDT [facility] Blood BLOOD SPECIMEN / Unknown Venipuncture / Unknown 03/05/2023 3:08 AM CDT 03/05/2023 4:14 AM CDT George Urban MD LAB - CHEMISTRY JULIANA SAENZ [facility] Organization Address City/State/ZIP Co de Phone Number [facility] [address] [place] [address] * MRI BRAIN WO CONTRAST (03/04/2023 2:33 PM CDT) Anatomical Region Laterality Modality Head Magnetic Resonan ce 03/04/2023 4:13 PM CDT Impressions 03/04/2023 4:26 PM CDT IMPRESSION: Multiple areas of abnormal signal at the white matter the right and left cerebral hemisphere. Some of the areas have corresponding abnormal signal on the diffusion images suggesting small areas of infarct at the right frontal and parietal lobe. The areas of T2 prolongation without associated diffusion-weighted abnormality likely representing small vessel ischemic disease and/or findings of prior infarct. > Interpreting Provider: Filemon Remy MD on 03/04/2023 4:26 PM Narrative 03/04/2023 4:26 PM CDT PROCEDURE: MRI BRAIN WO CONTRAST, DATE/TIME OF EXAM: 03/04/2023 2:33 PM, LOCATION [facility] INDICATION: R53.1: Weakness ADDITIONAL CLINICAL INFORMATION: Ordering Provider Reason For Exam: Technologist Note: Additional: HISTORY: Left-sided weakness. Neurological deficit. Stroke suspected. COMPARISON: None FINDINGS: MRI of the brain done without contrast. This was not ordered as a stat examination. Multiple MR images of the brain were performed. The lateral ventricles are normal in size. There is no abnormal extra-axial fluid collection. There are multiple areas of increased signal on the inversion recovery images at the periventricular, deep, and subcortical white matter of the right and left to hemisphere. There is increased signal corresponding to some of the white matter findings at the right frontal lobe and parietal lobe. This suggests small areas of infarct. Given distribution this could represent embolic disease. The largest area of restricted diffusion at the right frontal lobe measures approximately 5 x 3 mm.There is no mass seen within the brain. Review the coronal images shows the right and left hippocampus to be symmetric in size and signal. Exam of the paranasal sinus and orbits is unremarkable. Results were discussed with the patient's nurse, Becca, at 4:25 PM on 03/04/2023. Procedure Note Filemon Remy MD - 03/04/2023 PROCEDURE: MRI BRAIN WO CONTRAST, DATE/TIME OF EXAM: 03/04/2023 2:33PM, LOCATION [facility] INDICATION: R53.1: Weakness ADDITIONAL CLINICAL INFORMATION: Ordering Provider Reason For Exam: Technologist Note: Additional: HISTORY: Left-sided weakness. Neurological deficit. Stroke suspected. COMPARISON: None FINDINGS: MRI of the brain done without contrast. This was not orderedas a stat examination. Multiple MR images of the brain were performed. The lateral ventriclesare normal in size. There is no abnormal extra-axial fluid collection. There are multiple areas of increased signal on the inversion recovery imagesat the periventricular, deep, and subcortical white matter of the right and left to hemisphere. There is increased signal corresponding to some ofthe white matter findings at the right frontal lobe and parietal lobe. This suggests small areas of infarct. Given distribution this could represent embolic disease. The largest area of restricted diffusion at the right frontal lobe measures approximately 5 x 3 mm.There is no mass seenwithin the brain. Review the coronal images shows the right and lefthippocampus to be symmetric in size and signal. Exam of the paranasal sinus and orbits is unremarkable. Results were discussed with the patient's nurse, Becca, at 4:25 PM on 03/04/2023. IMPRESSION: Multiple areas of abnormal signal at the white matter the right and left cerebral hemisphere. Some of the areas have corresponding abnormal signal on the diffusion images suggesting small areas ofinfarct at the right frontal and parietal lobe. The areas of T2 prolongation without associated diffusion-weighted abnormality likely representingsmall vessel ischemic disease and/or findings of prior infarct. > Interpreting Provider: Filemon Remy MD on 03/04/2023 4:26 PM George Urban MD MR ORDERABLES * (ABNORMAL) HEMOGLOBIN A1C (03/03/2023 5:58 AM CDT) Hemoglobin A1c 7.5(H) <5.7 % 03/03/2023 6:16 AM CDT [facility] Estimated Average Glucose 169 mg/dL 03/03/2023 6:16 AM CDT [facility] Blood BLOOD SPECIMEN / Unknown Venipuncture / Unknown 03/03/2023 5:58 AM CDT 03/03/2023 6:05 AM CDT [facility] - 03/03/2023 6:16 AM CDT HbA1c Interpretation: Normal: < 5.7% Pre-diabetes: 5.7-6.4% Diabetes: Equal to or greater than 6.5% Test results diagnostic of diabetes should be repeated for confirmation. Treatment target values recommended by ADA and other clinical organizations should be used to evaluate metabolic control in patients. This test should not replace glucose testing for patients with Type 1 diabetes, pediatric patients, or women. Falsely low HbA1c results may be observed in patients with clinical conditions that shorten erythrocyte life span or decrease mean erythrocyte age such as the presence of unstable hemoglobin variants, elevated hemoglobin F level or other causes of hemolytic anemia. HbA1c may not accurately reflect glycemic control when clinical conditions that affect erythrocyte survival are present. Severe Iron deficiency anemia may yield falsely high results. Hemoglobin A1c assay should not be used to diagnose or monitor diabetes in patients with malignancy, recent blood transfusion, chronic kidney or liver disease. This method may yield falsely low results when hemoglobin (HbF) exceeds 5% in the specimen. The [employer] assay for the measurement of HbA1c is a National Glycohemoglobin Standardization Program (NGSP) certified method. Marisa Morrison AB - CHEMISTRY ORDERABLES [facility] [address] [place] [address] * (ABNORMAL) COMPREHENSIVE METABOLIC PANEL (03/03/2023 5:58 AM CDT) Glucose 138(H) 70 - 105 mg/dL 03/03/2023 6:28 AM CDT [facility] Sodium 136 136 - 145 mmol/L 03/03/2023 6:28 AM CDT [facility] Potassium 4.0 3.5 - 5.1 mmol/L 03/03/2023 6:28 AM CDT [facility] Chloride 106 98 - 107 mmol/L 03/03/2023 6:28 AM CDT [facility] CO2 20(L) 23 - 31 mmol/L 03/03/2023 6:28 AM CDT [facility] Calcium 9.3 8.4 - 10.4 mg/dL 03/03/2023 6:28 AM T [facility] Anion Gap 10 8 - 18 mmol/L 03/03/2023 6:28 AM CDT [facility] BUN 16 8.4 - 25.7 mg/dL 03/03/2023 6:28 AM CDT [facility] Creatinine 0.93 0.72 - 1.25 mg/dL 03/03/2023 6:28 AM T [facility] Alkaline Phosphatase 134 40 - 150 U/L 03/03/2023 6:28 AM CDT [facility] ALT 15 0 - 61 U/L 03/03/2023 6:28 AM CDT [facility] AST 13 5 - 34 U/L 03/03/2023 6:28 AM T [facility] Protein Total 6.8 6.4 - 8.3 gm/dL 03/03/2023 6:28 AM T [facility] Albumin 3.9 3.2 - 4.6 gm/dL 03/03/2023 6:28 AM T [facility] Bilirubin Total 0.9 0.2 - 1.2 mg/dL 03/03/2023 6:28 AM [facility] eGFR by CKD-EPI 88(L) >=90 mL/min/1.7 3 m2 03/03/2023 6:28 AM T [facility] Blood BLOOD SPECIMEN / Unknown Venipuncture / Unknown 03/03/2023 5:58 AM CDT 03/03/2023 6:05 AM CDT Marisa Franco MD L AB - CHEMISTRY ORDERABLES [facility] [address] [place] [address]
--- OUTSIDE RECORDS SUMMARY | 2024-11-25 12:06 | XMS_ITS | Clinical Summary ---
Author Organization [facility] Address [address] [place] [address] Care Team Providers Care Professor Of Biology Name Role Phone Unavailable Primary Care Provider Unavailabl e Source Comments [facility],non-owned Affiliates and Associated Physician Practices is amultiple site organization consisting of ambulatory clinics and hospital sitesin [place], [place], [place] and [place]. This disclosure is being madepursuant to the Care Everywhere program and may not contain all information available regarding this patient. Last updated 18.[facility] Allergies No known active allergies Medications * Be aware that medications may not be up to date on this document. Alwaysverify current medications with the patient. Medication Sig Dispensed Refills Start Date End Date Status rOPINIRole (Requip) 0.5 MG tabletIndications:Re stless Leg Syndrome Take 1 (one) tablet by mouth at bedtime Reasons: Restless Leg Syndrome Active albuterol (Proventil; Ventolin) 2 MG/5ML syrupIndications:ROUTEMAN D Take 6.25 mL by mouth 3 times daily Reasons: COPD Active cyclobenzaprine (Flexeril) 10 MG tablet Take 1 (one) tablet by mouth 2 times daily as needed for Muscle Spasms Active atorvastatin (Lipitor) 40 MG tablet Take 1 (one) tablet by mouth at bedtime Active omeprazole (PriLOSEC) 40 MG capsule Take 1 (one) capsule by mouth at bedtime Active aspirin (Aspirin) 81 MG chew tablet Take 1 (one) tablet by mouth once daily 30 tablet 03/09/2023 Active metFORMIN ER 24hr (Glucophage XR) 500 MG tablet Take 1 (one) tablet by mouth daily with dinner Start on 03/09/2023 120 tablet 03/08/2023 Active hydroCHLOROthiazide (Hydrodiuril) 25 MG tablet Take 1 (one) tablet by mouth once daily 02/22/2023 Active metoprolol tartrate IR (Lopressor) 50 MG tablet Take 1 (one) tablet by mouth 2 times daily 02/23/2023 Active clopidogrel (plaVIX) 75 MG tablet Take 1 (one) tablet by mouth once daily 30 tablet 11 03/22/2023 Active Active Problems Problem Noted Date Diagnosed Date [...] Date Recorded PHQ2 TOTAL SCORE 0 03/07/2023 [facility] - Occupational Stress [...] place to sleep or slept in a chcf (including now)? No 03/03/2023 Sex and Gender [...] Mass Index 22.25 03/06/2023 12:30 PM CDT Plan of Treatment Health Maintenance Due Date Last Done Comments COLOGUARD (AGES 45-75) - COLON CA SCREENING 1952 COLON MONITORING 1952 COLONOSCOPY - COLON CA SCREENING 1952 CT COLONOGRAPHY - COLON CA SCREENING 1952 Colorectal Cancer Screening 1952 FIT - COLON CA SCREENING 1952 FLEX SIG - COLON CA SCREENING 1952 HEPATITIS C SCREENING 03/06/1970 DTAP/TDAP/TD VACCINES (1 - Tdap) 1971 PNEUMOCOCCAL VACCINE 50+ (1 of 2 - PCV) 1971 ZOSTER VACCINE (1 of 2) 2002 AAA SCREENING 2017 COVID-19 VACCINE (3 - 2023- season) 2024 01/27/2021, 12/26/2020 INFLUENZA VACCINE (#1) 2024 9, 07/24/2018, 08/04/2015, Additional history exists DEPRESSION SCREENING 09/17/2024 03/22/2023 MEDICARE AWV CALENDAR YEAR 2024 Respiratory Syncytial Virus (RSV) Vaccine Pt: or over 60 yrs (1 - 1-dose 75+ series) 2027 HEPATITIS B VACCINE Aged Out No longe r eligible based on patient's age to complete this topic HIB VACCINE Aged Out No longer eligi ble based on patient's age to complete this topic HPV VACCINE Aged Out No longer eligi ble based on patient's age to complete this topic MENINGOCOCCAL (Group B) VACCINE Aged Out No longer eligible based on patient's age to complete this topic MENINGOCOCCAL VACCINE Aged Out No fadia meet eligible based on patient's age to complete this topic Medical Devices Implanted Type Area Manager Ethics Device Identifier Shelf Expiration Date Model / Serial / Lot Stent Enroute Uber Flx 7mm .065in 40mm Implanted:Qty : 1 on 03/05/2023 by Betty Crane DO at [facility] Stent - Vascular Right: Arterial [employer] [facility] 04/16/2025 SR-0740-C [id number] / / [id number] Description:IMPLANTED RIGHT CAROTID ARTERY Advance Directives * Full Code (Latest Code Status on File) Date Activated Date Inactivated Comments 03/03/2023 5:15 AM 03/08/2023 8:02 PM
--- OUTSIDE RECORDS SUMMARY | 2024-11-25 12:06 | XMS_ITS | Referral Summary ---
Author Organization [facility] Address [address] [place] [address] Care Team Providers Care Microsoft Systems Engineer Name Role Phone Unavailable Primary Care Provider Unavailabl e Source Comments [facility],non-owned Affiliates and Associated Physician Practices is amultiple site organization consisting of ambulatory clinics and hospital sitesin [place], [place], [place] and [place]. This disclosure is being madepursuant to the Care Everywhere program and may not contain all information available regarding this patient. Last updated 18.[facility] Allergies No known active allergies Medications * Be aware that medications may not be up to date on this document. Alwaysverify current medications with the patient. Medication Sig Dispensed Refills Start Date End Date Status rOPINIRole (Requip) 0.5 MG tabletIndications:Re stless Leg Syndrome Take 1 (one) tablet by mouth at bedtime Reasons: Restless Leg Syndrome Active albuterol (Proventil; Ventolin) 2 MG/5ML syrupIndications:BACK SEWER D Take 6.25 mL by mouth 3 [...] Date Recorded PHQ2 TOTAL SCORE 0 03/07/2023 [facility] - Occupational [...] place to sleep or slept in a m[facility] (including now)? No 03/03/2023 Sex and Gender [...] Mass Index 22.25 03/06/2023 12:30 PM CDT Functional Status Functional Status Response Date of Assess ment Is person deaf or have serious hearing difficult y? No 03/03/2023 Is person blind or have serious difficulty seein g? No 03/03/2023 Does person have serious dif ficulty walking/climbing stairs? No 03/03/2023 Does person have difficulty dressing/bathing? No 03/03/2023 Does person have difficulty doing errands alone? No 03/03/2023 Cognitive Status Response Date of Assessm ent Does person have difficulty concentrating/remembering/making decisions? No 03/03/2023 Plan of Treatment Not on file Medical Devices Implanted Type Area Operations Business Partner Device Identifier Shelf Expiration Date Model / Serial / Lot Stent Enroute Uber Flx 7mm .065in 40mm Implanted:Qty : 1 on 03/05/2023 by Betty Crane DO at [facility] Stent - Vascular Right: Arterial [employer] [facility] 04/16/2025 SR-0740-C [id number] / / [id number] Description:IMPLANTED RIGHT CAROTID ARTERY Advance Directives * Full Code (Latest Code Status on File) Date Activated Date Inactivated Comments 03/03/2023 5:15 AM 03/08/2023 8:02 PM
== END 2024-11-25 10:34 | disposition home or self-care (01) ==
LOC: ANHIMG 10:37
PROVIDERS: Visit Provider Internal Medicine Critical Care Medicine
DX: Z12.2 Encounter for screening for malignant neoplasm of respiratory organs (principal); Z87.891 Personal history of nicotine dependence; J43.9 Emphysema, unspecified
CPT/HCPCS: 71271; J2785

== ENCOUNTER 2024-12-16 14:55 | Outpatient (CLI) | payer MEDICARE, SELFPAY ==
[2024-12-16 15:43] LABS: Hematocrit 45.9 % (42.0-52.0); Hemoglobin 15.4 g/dL (14.0-18.0); Mean Corpuscular HGB Conc 33.6 g/dl (32-36); Mean Corpuscular Hemoglobin 29.1 pg (26-34); Mean Corpuscular Volume 86.8 fl (80-100); Mean Platelet Volume 9.1 fl (7.4-10.4); Platelet Count Result 316 k/mm3 (150-375); Red Blood Count 5.29 M/mm3 (4.6-6.20); Red Cell Distribution Width 14.3 % (11.5-14.5); White Blood Count 7.5 K/mm3 (4.5-10.0)
[2024-12-16 16:05] LABS: Prothrombin Time 13.6 Seconds (11.1-14.7)
[2024-12-16 16:13] LABS: Iron 76 ug/dL (49-181)
[2024-12-16 16:15] LABS: Alanine Aminotransferase 22 U/L (6-50); Albumin Level 4.3 g/dL (3.5-5.1); Alkaline Phosphatase 150 U/L (38-126); Anion Gap 10 mmol/L (4-12); Aspartate Amino Transferase 28 U/L (17-59); Blood Urea Nitrogen 16 mg/dL (9-20); Carbon Dioxide 28 mmol/L (22-30); Chloride 101 mmol/L (98-107); Estimated Glomerular Filt Rate > 60; Glucose 152 mg/dL (65-110); Potassium 4.1 mmol/L (3.4-5.0); Sodium 139 mmol/L (137-145)
[2024-12-16 16:22] LABS: Immunoglobulin G 943 mg/dL (700-1600); Percent Iron Saturation 21 % (20-50)
--- OUTSIDE RECORDS SUMMARY | 2024-12-16 16:27 | XMS_ITS | Clinical Summary ---
Author Organization [facility] Facility Address [address] [address] Care Team Providers Care Hot Man Name Role Phone Naila Moreno MD Primary Care Provider [phone] Social History Tobacco Use Types Packs/Day Years [...] patient's age to complete this topic Insurance [facility] MEDICARE Care Teams Hot Man Relationship Specialty Start Date End Date Naila Moreno MD [address], [address] [place] [address] PCP - General Internal Medicine 11/30/23
--- OUTSIDE RECORDS SUMMARY | 2024-12-16 16:27 | XMS_ITS | CONTINUITY OF CARE DOCUMENT ---
Author Name cruz kitoctavio Address Unknown Organization [facility] Address [address] [place] [address] Phone [phone] Care Team Providers Care Can Marker Name Role Phone Derrick Amos MD Unavailable [phone] CAITLIN RAMÍREZ MD Unavailable CAITLIN RAMÍREZ MD Unavailable PROBLEMS Condition Status Date Provider Notes Cardiology examination active Derrick Amos MD CVA active Derrick Amos MD Arrhythmia active Marshal Milner MD TOBACCO ABUSE-QUIT active Derrick Amos MD Shortness of breath active Marshal Milner MD COPD active Marshal Milner MD Diabetes mellitus active Marshal Milner MD Dyslipidemia active Marshal Milner MD Hypertension active Marshal Milner MD Preop exam active Marshal Milner MD ENCOUNTERS Date Type Provider Location Encounter Diag nosis - In-person encounter Office Visit Derrick Amos MD [facility] - In-person encounter Office Visit Derrick Amos MD [facility] Cardiology examination - In-person encounter Office Visit Derrick Amos MD [facility] TOBACCO ABUSE-QUIT - In-person encounter Office Visit Derrick Amos MD [facility] - In-person encounter Office Visit Derrick Amos MD [facility] - In-person encounter Office Visit Derrick Amos MD [facility] - In-person encounter Office Visit Derrick Amos MD [facility] CVA - In-person encounter Office Visit Derrick Amos MD [facility] - In-person encounter Office Visit Marshal Milner MD [facility] Preop examHypertensionDyslipidemiaDiabetes mellitusCOPDShortness of breathTOBACCO ABUSE-QUITArrhythmia VITAL SIGNS Date Observation Value Provider Body Mass Index (Ratio) 23.17 kg/m2 Portia Amos MD blood pressure, diastolic 90 mm[Hg] Ti kenan Ibanez blood pressure, systolic 166 mm[Hg] Kulwinder bender Saunders pulse rate 78 /min Zaida Lee s oxygen saturation, oximetry 97 % Zaida Ibanez weight E&M 135 [lb_av] Zaida Perryunder s blood pressure, cuff size regular Ti kenan Ibanez height E&M 64 [in_i] [facility] Body Mass Index (Ratio) 24.65 kg/m2 Portia Amos MD blood pressure, diastolic 93 mm[Hg] Ky ryan Aleman blood pressure, systolic 165 mm[Hg] Naina tamiko Aleman oxygen saturation, oximetry 94 % [facility] Ale[facility] pulse rate 87 /min Kmaron Aleman weight E&M 143.6 [lb_av] Kyaron Aleman height E&M 64 [in_i] Kyaron Aleman blood pressure, cuff size regular Km Aleman Body Mass Index (Ratio) 24.03 kg/m2 Portia [...] Jose Mata blood pressure, diastolic 68 mm[Hg] Tr bean Mata blood pressure, systolic 114 mm[Hg] Jovi ismael Mata oxygen saturation, oximetry 98 % Benito Mata respiratory rate E&M 24 /min Benito Mata pulse rate 84 /min Benito Mata weight E&M 137 [lb_av] Benito Mata Body Mass Index (Ratio) 23.51 kg/m2 Portia Amos MD blood pressure, cuff size regular Andrea rret blood pressure, diastolic 93 mm[Hg] Ja rret blood pressure, systolic 169 mm[Hg] Jar ret pulse rate 63 /min Lucas oxygen saturation, oximetry 96 % Lucas respiratory rate E&M 16 /min Lucas weight E&M 137 [lb_av] Lucas y height E&M 64 [in_i] Lucas y Body Mass Index (Ratio) 23.34 kg/m2 Ricky Albright blood pressure, cuff size regular Ja rret blood pressure, diastolic 95 mm[Hg] Ja rret blood pressure, systolic 176 mm[Hg] Jar ret pulse rate 58 /min Lucas y respiratory rate E&M 16 /min Lucas oxygen saturation, oximetry 98 % weight E&M 136 [lb_av] Lucas y height E&M 64 [in_i] Lucas y Body Mass Index (Ratio) 23.51 kg/m2 Portia Amos MD blood pressure, diastolic 90 mm[Hg] Barbie brianyonathan Karimi blood pressure, systolic 155 mm[Hg] [facility] roberta Sachi pulse rate 61 /min Jazzy Karimi respiratory rate E&M 20 /min Jazzy Karimi oxygen saturation, oximetry 96 % Jazzy Karimi weight E&M 137 [lb_av] Jazzy Karimi blood pressure, cuff size regular brianyonathan Sachi height E&M 64 [in_i] Jazzy Karimi Body Mass Index (Ratio) 23.51 kg/m2 Portia Amos MD blood pressure, diastolic 100 mm[Hg] Aide nkLogic blood pressure, systolic 176 mm[Hg] Raquel kLogic pulse rate 78 /min Lucas y blood pressure, cuff size regular Ja rret blood pressure, diastolic 100 mm[Hg] Ja rret blood pressure, systolic 176 mm[Hg] Jar ret oxygen saturation, oximetry 94 % Lucas respiratory rate E&M 12 /min Lucas weight E&M 137 [lb_av] Lucas y height E&M 64 [in_i] Lucas y Body Mass Index (Ratio) 24.54 kg/m2 David Quarles blood pressure, diastolic, left arm 80 mm [Hg] [facility] blood pressure, systolic, left arm 130 mm [Hg] [facility] blood pressure, diastolic, right arm 80 m m[Hg] [facility] blood pressure, systolic, right arm 130 m m[Hg] [facility] blood pressure, diastolic 80 mm[Hg] [facility] Brody blood pressure, systolic 130 mm[Hg] Yane cuevas Allen oxygen saturation, oximetry 97 % [facility] respiratory rate E&M 16 /min [facility] pulse rate 64 /min [facility] weight E&M 143 [lb_av] [facility] height E&M 64 [in_i] [facility] blood pressure, resting Yes [facility] ALLERGIES No Known Drug Allergies HISTORY OF MEDICATION USE Medication Status Instructions Dates Provider Indications Com ments celecoxib 200 mg capsule active Zaida Ibanez naproxen 500 mg tablet active Derrick Amos [...] history, tot al pack/day currently 1/2 Derrick mAos MD cigarette use yes Derrick Cardenas smoking [...] months Jazzy martines cigarette use yes Jazzy Karimi smoking status Former smoker Jazzy pike smoking/tobacco cess ation, patient education and counseling yes Derrick Amos MD number of years as a smoker 45+ Derrick Amos MD smoking history, tot al pack/day currently 1/2 Derrick Amos MD cigarette use yes Derrick Cardenas smoking status Current every day smoker U adam Amos MD social history reviewed E&M revi ewed - no changes required Derrick Amos MD social history reviewed E&M revshaun ewed - no changes required Marshal Milner MD social history E&M Smoking Histo ry: P atient currently smokes every day. P atient has been counseled to quit. Marshal Milner MD smoking/tobacco cess ation, patient education and counseling yes Marshal Milner MD number of years as a smoker 45+ Catrina Brody smoking history, tot al pack/day currently 1/2 Angel Quarles cigarette use yes Catrina Goldenam number of grandchildren Marshal Stark reshma Brody smoking status Current every day smoker Vicki sotelo Brody FAMILY HISTORY Family Member Condition Father Family History of Co ngestive Heart Failure: Father Family History of Hy pertension: Full Sister Family History of Ao rtic Aneurysm: Maternal Grandmother Family History of C VA or Stroke: Mother Family History of Co ngestive Heart Failure: Mother Family History of Hy pertension: INSURANCE PROVIDERS Payer name Policy type / Coverage type [place] red libertarian ID AARP MEDICARE ADVANTAGE ([facility] COMPLETE PPO) Other [id number] ADVANCE DIRECTIVES Name Date DISCUSSED - NO DECISION MADE TREATMENT PLAN Date Name Performer [id number],C,Per pcp Derrick Amos MD [id number],C,S tent to carotid. he should be on astatin but I am not sure. Derrick Amos MD [id number],C,N ot sure what he is on but he will see his PCP for a list of current meds B P today: 155/90 P rior BP: 176/100 (04/12/2023) Derrick Amos MD [id number],C,l ow risk for colonoscopy. BP is not well controlled, will have him come back in a week for BP check Derrick Amos MD [id number],C,n ot well controlled W ill add olmesartan [...] mouth once a day Derrick Amos MD Cardiology:on metformin Derrick kramer MD Cardiology:on a stat in. T his visit has been a part of the consistent, comprehensive, and ongoing management of the chronic medical condition(s) listed above for the patient. Derrick Amos MD Cardiology Derrick Amos MD Cardiology:Will jose w his ciuretic c ontinue his lopressor and losartan B P today: 166/90 P rior BP: 165/93 (08/11/2024) Derrick Amos MD Cardiology:check ech o Derrick [...] Amos MD Cardiology:increase arb to twice daily afia ashraf echo and renal artery duplex His updated [...] is willing to undergo diagnosis and treatment. [facility] Cardiology:His [facility] ed medication list for this problem includes: Lisinopril 40 Mg Oral Tablet (Lisinopril) ..... Take 1 tab onc daily Metformin Hcl 1000 Mg Oral Tablet (Metformin hcl) ..... Take 1 tab twice daily [facility] Cardiology:His [facility] ed medication list for this problem includes: Atorvastatin Calcium 20 Mg Oral Tablet (Atorvastatin calcium) ..... Take 1 tab once daily [facility] Cardiology:BP today: 130/80 His updated medication list for this problem includes: Metoprolol Tartrate 50 Mg Oral Tablet (Metoprolol tartrate) ..... Take 1 tab twice daily Lisinopril 40 Mg Oral Tablet (Lisinopril) ..... Take 1 tab onc daily Amlodipine Besylate 10 Mg Oral Tablet (Amlodipine besylate) ..... Take 1 tab once daily [facility] Cardiology:He report s many years ago he had irregular heart beats. [facility] Cardiology:He is a h eavy smoker. He has exertional dyspnea. EKG does not show any major abnormalities. He has multiple risk factors. Will obtain an echo to assess LV function. If LV function is preserved, he can proceed to surgery at this time. Angel Quarles Cardiology:Pt is a c andidate for hip surgery. Denies hx of [place] or chest pain. He reports many years ago he had irregular heart beats. He is a heavy smoker. He has exertional dyspnea. EKG does not show any major abnormalities. He has multiple risk factors. Will obtain an echo to assess LV function. If LV function is preserved, he can proceed to surgery at this time. Angel Quarles Date Name Complete Echo Complete Echo Renal Artery Duplex PROBNP, N TERMINAL LIPID PANEL COMPREHENSIVE METABO LIC PANEL, W/EGFR Renal Artery Duplex Low Dose Lung CT Complete Echo HISTORY OF PROCEDURES Procedure Date Procedure Name Provider Procedure Notes S tatus Complex e/m visit add on Derrick Amos MD completed Complex e/m visit add on Derrick Amos MD completed EKG Derrick Amos MD completed Complex e/m visit add on Derrick Amos MD completed EKG Derrick Amos MD completed Counseling LDCT Marshal Milner MD compl eted EKG Marshal Milner MD completed
[2024-12-16 16:28] LABS: Hepatitis B Surface Antigen Negative (Negative)
--- OUTSIDE RECORDS SUMMARY | 2024-12-16 16:28 | XMS_ITS | Clinical Summary ---
Author Organization [facility] Address [address] [place] [address] Care Team Providers Care Cloth Desizing Range Operator Chief Name Role Phone Unavailable Primary Care Provider Unavailabl e Source Comments [facility],non-owned Affiliates and Associated Physician Practices is amultiple site organization consisting of ambulatory clinics and hospital sitesin [place], [place]. This disclosure is being madepursuant to the Care Everywhere program and may not contain all information available regarding this patient. Last updated 18.[facility] Allergies No known active allergies Medications * Be aware that medications may not be up to date on this document. Alwaysverify current medications with the patient. 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 No 03/03/2023 Sex and Gender [...] complete this topic MENINGOCOCCAL (Group B) VACCINE SHARED DECISION-MAKING Aged Out No longer eligible based on patient's age to complete this topic MENINGOCOCCAL GROUPS A/C/Y/W VACCINE Aged Out No longer eligible based on patient's age to complete this topic Medical Devices Implanted Type Area Education Sales Consultant Device Identifier Shelf Expiration Date Model / Serial / Lot Stent Enroute Uber Flx 7mm .065in 40mm Implanted:Qty : 1 on 03/05/2023 by Betty Crane DO at [facility] Stent - Vascular Right: Arterial [employer] [facility] 04/16/2025 SR-0740-C S / / [id number] Description:IMPLANTED RIGHT CAROTID ARTERY Advance Directives * Full Code (Latest Code Status on File) Date Activated Date Inactivated Comments 03/03/2023 5:15 AM 03/08/2023 8:02 PM
[2024-12-16 16:34] LABS: HAV RESULT Negative (Negative); Hepatitis B Core IgM Result Negative (Negative)
[2024-12-16 16:47] LABS: Hepatitis B Surface Anti Res Positive; Hepatitis C Virus Antibody Negative (Negative)
[2024-12-17 07:59] LABS: Hepatitis A Antibody Total REACTIVE (NON-REACTIVE)
[2024-12-19 11:48] LABS: ANA Pattern Nuclear, Homogeneous; ANA Pattern Nuclear, Speckled; Anti Nuclear Antibody Pattern Cytoplasmic
[2024-12-20 06:18] LABS: Alpha-1-Antitrypsin, QN 187 mg/dL (83-199)
[2024-12-20 18:58] LABS: Mitochondrial (M2) Ab (IgG) <20.0 U
[2024-12-22 23:04] LABS: Immunoglobulin A 232 mg/dL (70-320); TTG IGA AB <1.0 U/mL
[2024-12-23 11:04] LABS: LKM 1 Antibody <=20.0 U (<=20.0)
[2024-12-24 17:13] LABS: ALT 15 U/L (9-46); Alpha-2-Macroglobulin 290 mg/dL (106-279); Apolipoprotein A1 129 mg/dL (94-176); Fibrosis Score 0.43; Fibrosis Stage F1-F2; GGT 44 U/L (3-70); Haptoglobin 368 mg/dL (43-212); Necroinflammat Act Grade A0; Reference ID 5426513; Total Bilirubin 0.4 mg/dL (0.2-1.2)
== END 2024-12-16 14:56 | disposition home or self-care (01) ==
PROVIDERS: PCP Internal Medicine; Visit Provider Nurse Practitioner
DX: R74.8 Abnormal levels of other serum enzymes (principal); K76.0 Fatty (change of) liver, not elsewhere classified; Z91.89 Other specified personal risk factors, not elsewhere classified; Z11.59 Encounter for screening for other viral diseases; K74.60 Unspecified cirrhosis of liver
CPT/HCPCS: 36415; 80053; 80074; 81596; 82103; 82728; 82784; 83516; 83520; 83540; 83550; 85027; 85610; 86038; 86376; 86706; 86708; 87340

== ENCOUNTER 2024-12-21 10:36 | Outpatient (CLI) | payer MEDICARE, SELFPAY ==
--- NOTE | ~2024-12-21 | MR_ITS ---
MRI of the left shoulder Technique: Axial proton-density fat-sat images, coronal proton density fat-sat and T2 fat-sat images, and sagittal T1-weighted and T2 fat-sat images were acquired. Clinical History: Pain Findings: There is moderate AC joint degenerative change, bony productive change of both sides of the joint. Coracoclavicular, coracoacromial, and coracohumeral ligaments are intact. There is full-thickness tear involving the entire supraspinatus tendon as well as the majority of the infraspinatus tendon. A few the posterior most fibers of the infraspinatus tendon may remain intact. Fluid-filled gap measures up to approximately 3.1 x 3.9 cm in extent. The retracted supraspinatus te ndon is frayed and markedly hyperintense. Subscapularis tendon is intact. Tendon of the long head of the biceps is intact. Suspected degenerative tear at the anterior labrum at the equator. Inferior glenohumeral ligament is intact. There is moderate glenohumeral joint effusion with fluid pa ssing through the rotator cuff defect into the subacromial/subdeltoid bursa. There is mild fluid dist ention of the subscapularis recess of the joint. No significant degenerative change of the glenohumer al joint. No muscle atrophy or edema evident. 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 Moderate AC joint degenerative change. Probable degenerative tear of the anterior labrum at the equator. Glenohumeral joint effusion, as above. Reviewed, dictated and finalized at [facility]. 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 Moderate AC joint degenerative change. Probable degenerative tear of the anterior labrum at the equator. Glenohumeral joint effusion, as above.
--- OUTSIDE RECORDS SUMMARY | 2024-12-21 10:40 | XMS_ITS | CONTINUITY OF CARE DOCUMENT ---
Author Name cruz kitoctavio Address Unknown Organization [facility] Address [address] [address] [place] [address] Phone [phone] Care Team Providers Care Computer Systems Software Architect Name Role Phone Derrick Amos MD Unavailable CAITLIN RAMÍREZ MD Unavailable CAITLIN RAMÍREZ MD Unavailable [phone] PROBLEMS Condition Status Date Provider Notes Preop [...] In-person encounter Office Visit Derrick Amos MD [facility] - In-person encounter Office Visit Derrick Amos MD [facility] Cardiology examination - In-person encounter Office Visit Derrick Amos MD [facility] TOBACCO ABUSE-QUIT - In-person encounter Office Visit Derrick Amos MD [facility] - In-person encounter Office Visit Derrick Amos MD [facility] - In-person encounter Office Visit Derrick Amos MD [facility] - In-person encounter Office Visit Derrick Amos MD [facility] CVA - In-person encounter Office Visit Derrick Amos MD [facility] - In-person encounter Office Visit Marshal Milner MD [facility] Preop examHypertensionDyslipidemiaDiabetes mellitusCOPDShortness of breathTOBACCO ABUSE-QUITArrhythmia VITAL SIGNS Date Observation Value Provider Body Mass Index (Ratio) 23.17 kg/m2 Portia Aoms MD blood pressure, diastolic 90 mm[Hg] Ti kenan Ibanez blood pressure, systolic 166 mm[Hg] Kulwinder bender Saunders pulse rate 78 /min Zaida Lee s oxygen saturation, oximetry 97 % Zaida Ibanez weight E&M 135 [lb_av] Zaida Perryunder s blood pressure, cuff size regular Ti kenan Ibanez height E&M 64 [in_i] [facility] Body Mass Index (Ratio) 24.65 kg/m2 Portia Amos MD blood pressure, diastolic 93 mm[Hg] Ky ryan Aleman blood pressure, systolic 165 mm[Hg] Naina tamiko Aleman oxygen saturation, oximetry 94 % [facility] pulse rate 87 /min Kmaron Aleman [...] brianyonathan Karimi blood pressure, systolic 155 mm[Hg] [facility] roberta Sachi pulse rate 61 /min Jazzy [...] pressure, diastolic, left arm 80 mm [Hg] [facility] blood pressure, systolic, left arm 130 mm [Hg] [facility] blood pressure, diastolic, right arm 80 m m[Hg] [facility] blood pressure, systolic, right arm 130 m m[Hg] [facility] blood pressure, diastolic 80 mm[Hg] [facility] Brody blood pressure, systolic 130 mm[Hg] Yane cuevas [place] oxygen saturation, oximetry 97 % [facility] respiratory rate E&M 16 /min [facility] pulse rate 64 /min [facility] weight E&M 143 [lb_av] [facility] height E&M 64 [in_i] [facility] blood pressure, resting Yes [facility] ALLERGIES No Known Drug Allergies HISTORY [...] Payer name Policy type / Coverage type [employer] party ID A[employer] MEDICARE ADVANTAGE ([facility] COMPLETE PPO) Other [id number] ADVANCE DIRECTIVES Name Date DISCUSSED - NO DECISION MADE TREATMENT PLAN Date Name Performer [id number],C,Per pcp Derrick Amos MD [id number],C,S tent to carotid. he should be on astatin but I am not sure. Derrick Amos MD [id number],C,N ot sure what he is on but he will see his PCP for a list of current meds B P today: 155/90 P rior BP: 176/100 (04/12/2023) Derrick Amos MD [id number],C,l ow risk for colonoscopy. BP is not well controlled, will have him come back in a week for BP check Derrick Amos MD [id number],C,n ot well controlled W ill add olmesartan [...] is willing to undergo diagnosis and treatment. [facility] Cardiology:His [facility] ed medication list for this problem includes: Lisinopril 40 Mg Oral Tablet (Lisinopril) ..... Take 1 tab onc daily Metformin Hcl 1000 Mg Oral Tablet (Metformin hcl) ..... Take 1 tab twice daily [facility] Cardiology:His [facility] ed medication list for this problem includes: Atorvastatin Calcium 20 Mg Oral Tablet (Atorvastatin calcium) ..... Take 1 tab once daily [facility] Cardiology:BP today: 130/80 His updated medication list for this problem includes: Metoprolol Tartrate 50 Mg Oral Tablet (Metoprolol tartrate) ..... Take 1 tab twice daily Lisinopril 40 Mg Oral Tablet (Lisinopril) ..... Take 1 tab onc daily Amlodipine Besylate 10 Mg Oral Tablet (Amlodipine besylate) ..... Take 1 tab once daily [facility] Cardiology:He report s many years ago he had irregular heart beats. [facility] Cardiology:He is a h eavy smoker. He has exertional dyspnea. EKG does not show any major abnormalities. He has multiple risk factors. Will obtain an echo to assess LV function. If LV function is preserved, he can proceed to surgery at this time. [facility]:Pt is a c andidate for hip surgery. Denies hx of NE or chest pain. He reports many years [...]
--- OUTSIDE RECORDS SUMMARY | 2024-12-21 10:40 | XMS_ITS | Data Portability ---
Author Organization [facility] [employer], Main Office Address [address] [place] [address] Care Team Providers Care Lime Trimmer Name Role Phone NAILA MORENO Primary Care Provider NAILA MORENO Referring Provider [phone] MIGUEL A BALDERRAMA Strap Setter DUNCAN SUAREZ Chief Librarian Extension Department MIGEL AMOS Machine Lead Burner SUBHA FLETCHER General Surgeon BAILEY HERNANDEZ Orthopedic Surgeon Assessment Encounter Date Assessment Date Assessment LastModified by Organization Details LastModified Time 08/27/2024 08/27/2024 Assessment: Dysphonia Postnasal drip Nicotine smoke: 1 ppd [id number] (quit 12 years in between) = 41 pack years Mild COPD RUL nodule Hypertension Plan: The following were reviewed and explained to the patient: Chest CT 09/21/22 7 mm RUL nodule Chest CT 03/07/24 no acute abnormality Chest CT 05/13/24 5 mm RUL nodule [facility] hospitalization 05/13/24 - 05/14/24 discharged on azithromycin, prednisone, Trelegy and albuterol inhalers [facility] hospitalization 05/26/24 - 05/30/24 Lab data 06/04/24 PFT 06/18/24 FEV1 2.12 L (82%), TLC 4.43 L (76%), DLCO 54%, DLCO/VA 80% Angiotensin 2 receptor (A2R) blockers are commonly used as a first substitute when ILA inhibitor cough appears, though they have a similar side effect profile to ILA inhibitors. However, cough can still occur with A2R blockers but is typically three to four times less common. Cough recurrence rates are also lower with A2R blockers but they should not be overlooked as a cause of chronic cough. Cough may be the initial manifestation of drug-related airway hyper-responsiveness or bronchoconstriction that is described with -blockers; associated wheeze and dyspnea may occur. -blockers (including eye drops) cause bronchoconstriction via bronchial 2 receptor blockade. Continue Atrovent nasal spray 0.06% 1 spray to each nostril up to 4 times a day for postnasal drip. Sputum gm stain and culture. Differential diagnoses for pulmonary nodule: 1. malignant tumor 2. benign tumor 3. inflammatory processes 4. infectious process (viral, atypical bacterial, fungal, atypical mycobacterial) The Fleischner Society pulmonary nodule recommendations below pertain to the follow-up and management of indeterminate pulmonary nodules detected incidentally on CT and are published by the Fleischner Society. The guideline does not apply to lung cancer screening, patients younger than 35 years, or patients with a history of primary cancer or immunosuppression. These recommendations reflect the 2017 revision 4, which supersedes prior versions published in 2005 and 2013. Single solid nodule <6 mm (<100 mm3) *low-risk patients: no routine follow-up required *high-risk patients: optional CT at 12 months (particularly with suspicious nodule morphology and/or upper lobe location) Single solid nodule 6-8 mm (100-250 mm3) *low-risk patients: CT at 6-12 months, then consider CT at 18-24 months *high-risk patients: CT at 6-12 months, then CT at 18-24 months Single solid nodule >8 mm (>250 mm3) *low-risk and high-risk patients: consider CT at 3 months, PET/CT, or tissue sampling General information on COPD was covered. COPD affects breathing. Self-care skills such as not smoking, using medications as prescribed, oxygen therapy, and knowing when to contact the healthcare provider are covered. Diaphragmatic breathing and pursed lip breathing are explained and demonstrated. Positive lifestyle changes are introduced. Following these self-care skills will help in the management of COPD so the patient can stay out of the hospital. Advised to continue not to smoke and to stay away from other smokers. Continue Albuterol HFA as needed. Change Trelegy Ellipta 100/62.5/25 mcg to Anoro Ellipta 62.5/25 mcg 1 inhalation daily. Gargle after use. Eliminating the steroid component may help with his dysphonia. He will also be referred to ENT for further evaluation. The patient does not know how to accurately administer the inhalers. Today, the patient was shown how to take these medications. The proper technique for delivering these medications was instructed. The patient expressed a clear understanding and demonstrated back how to use these medications. Without the proper technique, the patient will not reap the benefits of these medications as the contents will not reach the lower airways as intended to be. Adherence to therapy is advocated. Nonadherence may lead to treatment failure, further progression of the condition, and other complications. Hospitals admissions are often the result of individuals not taking prescription medications accurately. Alternatively, greater adherence to medication regimens have shown to lower rates of hospitalization and decrease total medical costs in patients with chronic medical conditions. Advocated influenza vaccination annually and pneumonia vaccination SHANTELLE. Encouraged patient to adjust caloric intake to maintain/achieve ideal body weight, emphasizing on fruits, vegetables, whole grains, and fat-free or low-fat products. These include lean meats, poultry, fish, beans, eggs, and nuts and foods that are low in saturated fats, trans-fats, cholesterol, salt (sodium), and glycemic index. Stressed the importance of regular exercise up to the patient's capacity limits. In this case, we recommend 20 min daily walking, 2 days a week of resistance training. Patient to monitor BP daily and bring records to PCP for further management. Follow-up: 1 week after ENT consult [email or web address] Not available 08/27/2024 09:24:48 10/07/2024 10/07/2024 03/28/2023: A1C 8.1 BUN 20, Gluc 165, ALP 128 Chol 234, TG 188, LDL 144 Urine micro alb 195.9 05/17/2023: Folate/B12/VIT D WNL 11/29/2023: A1C 9.3 Urine micro alb 506.0 Hep panel: Neg GGT 59H Gluc 245, ALK 136H Chol 257, LDL 172 07/07/2024: PSA 0.67 A1C 9.1 Gluc 179H, TP 6.0L, glob 2.3L TG 175 Urine micro alb 84.3H [email or web address] Not available 10/07/2024 12:13:30 10/08/2024 10/08/2024 74-year-old male presents for a new problem of his left shoulder. He reports the injury on 10/01/2024 when he slipped and fell and landed on his shoulder directly. He has had pain and difficulty with lifting overhead motion since then. He currently rates pain as 8/10. He has been taking naproxen. He has tenderness diffusely over the shoulder laterally. Range of motion 120/20/back pocket. He has 5- out of 5 strength with rotator cuff testing limited by pain. He has positive Maribel. Positive Neer and Brandon. Positive Hollywood's. X-rays of the shoulder were reviewed, demonstrating no acute bony abnormality, some degenerative change of the glenohumeral joint For his shoulder pain we will begin with a course of conservative management. We will order him a course of physical therapy to add his shoulder in addition to his knee, and give him a refill on his meloxicam. We also discussed cortisone injection and given that he has significant symptoms at night disrupting his sleep and everyday activities, he wanted to proceed with that and tolerated well. He will follow up in 6-8 weeks for recheck, or sooner as needed. [email or web address] Not available 10/08/2024 15:43:47 12/03/2024 12/03/2024 HPI: 74 year old male presents today for a follow-up of left shoulder pain. Treatment plan has been conservative management with PT, Meloxicam, and injection. Since last visit, he reports worsening pain. Currently reporting pain as 10/10. He continues to endorse pain and difficulty with lifting overhead motion. Reports the injection provided relief for a couple of more days. Physical Exam: General: Normal appearance. No acute distress. Inspection: No evidence of swelling, erythema, bruising or deformity. Palpation: Diffuse tenderness over the anterolateral shoulder. ROM: Flexion: active - 90 passive - 100 Abduction: active - 90 passive - 150 ER: 30 IR: back pocket Special Test: Positive Maribel. Positive Neer and Brandon. Positive Hollywood's. Motor: 5/5 strength. Limited by pain Sensation: Sensation intact. Assessment & Plan: He continues to have persistent symptoms with conservative management, the next step would be to get an MRI. MRI ordered Rx for Celebrex. We discussed that we can switch his meloxicam to Celebrex due to Celebrex having less risk of GI toxicity, compared to other NSAIDs. Always take Celebrex with food. He should take it with his PPI. I discussed with the patient the potential risk of taking NSAIDs long-term (>1 month) with their underlying medical condition. Follow Up: MRI Results All questions were answered. Patient verbalized understanding of treatment plan [email or web address] Not available 12/04/2024 13:18:45 Plan of Treatment Reminders Order Date Submit Date Provider Last Modified By Organization Details Last Modified Time Details Appointments Any 15 2024 10:30A Pedro pompa MD Not available Not available Not available Lab testoster one, free + total, serum [email or web address] Out[facility], [address] [place], [address], 10/07/2024 12:29:42 lipid panel, serum 2024 025 Not available 10/07/2024 12:29:40 CMP, serum or plasma 2024 025 [email or web address] Not available 10/07/2024 12:29:41 CBC w/ auto diff 2024 025 [email or web address] Not available 10/07/2024 12:29:41 TSH + free T4, serum 2024 025 [email or web address] Not available 10/07/2024 12:29:41 vitamin D, 25-hydrox y, total, serum [email or web address] [place] [address] Outpatient Lab, [address] [place], [address], 10/07/2024 12:29:42 microalbu min, urine 2024 025 [email or web address] Not available 10/07/2024 12:29:39 glycohemo globin, total, blood 2024 025 [email or web address] Not available 10/07/2024 12:29:40 vitamin B12 + folate, serum or blood [email or web address] [place] [address] - Outpatient Lab, [address] [place], [address], 10/07/2024 12:29:42 gram stain, sputum [address] [place] [address] - Outpatient Lab, [address] [place], [address], 09/04/2024 15:26:10 culture, sputum 2023 024 [facility] - Outpatient Lab, [address] [place], [address], 08/28/2024 09:23:27 Referral physical therapist referral - Please schedule pt for L shoulder. Thanks 2024 025 [email or web address] [facility] [place], [address] [facility], [place], [address], 10/12/2024 20:27:32 nephrolog ist referral - Please call patient to schedule an appointme nt. Thank you. 2024 025 NEO Hinson MD (Nephrology, [address] [facility], [place], [address], 11/27/2024 10:25:33 orthopedi c surgeon referral 2024 025 [email or web address] Bailey Hernandez MD, [address] [facility], [place], [address], 10/08/2024 17:47:12 orthopedi c surgeon referral - Please call patient to schedule. 2024 025 [email or web address] Bailey Hernandez MD, [address] [facility], [place], [address], 10/08/2024 17:47:11 gastroent erologist referral - Please call patient to schedule an appointme nt. Thank you. 2024 025 [email or web address] Zachery Childers MD, [address] [facility], [address], [place], [address], 11/24/2024 17:58:06 cardiolog ist referral 2024 025 [email or web address] [place], [address] [facility], [place], [address], 10/08/2024 17:46:51 gastroent erologist referral - Please call patient to schedule an appointme nt. Thank you. 2024 025 PAZ Childers MD, [address] [facility], [address], [place], [address], 10/27/2024 12:14:[address] referral - Please call patient to schedule an appointme nt. Thank you. 2024 025 NEO Hare MD, [address] [facility], [address], [place], [address], 10/23/2024 12:20:31 podiatris t referral 2024 025 [email or web address] Miguel A Balderrama DPM, [address] [facility], [address], [place], [address], 10/08/2024 17:46:50 ENT surgery referral - Please call patient to schedule. 2023 024 2 Barbara Jolly MOTOR VEHICLE LICENSE CLERK, [address], [place], [address], 11/25/2024 08:19:42 Procedures injection /aspirati on joint/bur sa (PROC) 2024 025 [email or web address] In-Office Order, Internal Use Only DO Not Attach Compendium DO Not Attach Compendium, Do Not Delete/merge, [id number] 10/08/2024 14:40:14 Surgeries None recorded. Imaging MRI, shoulder, w/o contrast - Please contact pt to schedule apt. Thanks 2024 025 [email or web address] [facility], [address], [place], [address], 12/05/2024 19:53:41 Medication Orders Celebrex 200 mg capsule [address] [facility] [address] [facility], [address] [place], [address], 12/05/2024 19:53:41 bupivacai ne HCl 0.5 % (5 mg/mL) injection solution [address] [facility], [address] [place], [address], 10/12/2024 20:27:32 Kenalog 10 mg/mL suspensio n for injection [address] [facility], [address] [place] [address], [address], 10/12/2024 20:27:32 Mobic 15 mg tablet [address] [facility], [address] [place] [address], [address], 10/12/2024 20:27:32 meloxicam 7.5 mg tablet 2024 025 [facility], [address] [place], [address], 10/07/2024 12:34:00 ipratropi um bromide 42 mcg (0.06 %) nasal spray 2023 024 [facility], [address] [place] [address], [address], 08/27/2024 09:26:59 albuterol sulfate HFA 90 mcg/actua tion aerosol inhaler 2023 024 [facility], [address] [place] [address], [address], 08/27/2024 09:26:55 Anoro Ellipta 62.5 mcg-25 mcg/actua tion powder for inhalatio n 2023 024 [facility], [address] [place], [address], 08/27/2024 09:26:56 Patient TargetsNo targets recorded. Patient Instructions Encounter Date Encounter Id Patient Instructions Last Modified By Organization Details Last Modified Time 10/07/2024 [id number] diabetic eye exam* [email or web address] Not available 10/07/2024 12:29:43 Reason for Referral ENT Surgery Referral for Dys phonia Please call patient to schedule. Referring Physician: Duncan Suarez, Pulmonary Disease, Encounter Date: 08/27/2024 Strap Setter Referral for Type 2 diabetes mellitus without complication Referring Physician: Naila Moreno Internal Medicine, Encounter Date: 10/07/2024 Machine Lead Burner Referral for Co ronary arteriosclerosis Referring Physician: Naila Moreno Internal Medicine, Encounter Date: 10/07/2024 Neurologist Referral for Tra nsient cerebral ischemia Please call patient to schedule an appointment. Thank you. Referring Physician: Naila Moreno Internal Medicine, Encounter Date: 10/07/2024 Test Bore Helper Referral for Pr oteinuria Please call patient to schedule an appointment. Thank you. Referring Physician: Naila Moreno Internal Medicine, Encounter Date: 10/07/2024 Orthopedic Surgeon Referral for Pain of right knee joint Please call patient to schedule. Referring Physician: Naila Moreno Internal Medicine, Encounter Date: 10/07/2024 Batching Operator Referral for Melendez's esophagus Please call patient to schedule an appointment. Thank you. Referring Physician: Naila Moreno Internal Medicine, Encounter Date: 10/07/2024 Batching Operator Referral for Liver enzymes level above reference range Please call patient to schedule an appointment. Thank you. Referring Physician: Naila Moreno Internal Medicine, Encounter Date: 10/07/2024 Orthopedic Surgeon Referral for Pain of left shoulder joint Referring Physician: Naila Moreno Internal Medicine, Encounter Date: 10/07/2024 Physical Therapist Referral for Pain of left shoulder joint L shoulder Please schedule pt for L shoulder. Thanks Referring Physician: Bailey Hernandez, Orthopedic Surgery, Encounter Date: 10/08/2024 Strap Setter Referral for Type 2 diabetes mellitus without complication Please call patient to schedule an appointment. Thank you. Referring Physician: Naila Moreno Internal Medicine, Encounter Date: 11/20/2024 Machine Lead Burner Referral for Co ronary arteriosclerosis Please call patient to schedule an appointment. Thank you. Referring Physician: Naila Moreno Internal Medicine, Encounter Date: 11/20/2024 Neurologist Referral for Tra nsient cerebral ischemia Please call patient to schedule an appointment. Thank you. Referring Physician: Naila Moreno Internal Medicine, Encounter Date: 11/20/2024 Test Bore Helper Referral for Pr oteinuria Please call patient to schedule an appointment. Thank you. Referring Physician: Naila Moreno Internal Medicine, Encounter Date: 11/20/2024 Batching Operator Referral for Melendez's esophagus Please call patient to schedule an appointment. Thank you. Referring Physician: Naila Moreno Internal Medicine, Encounter Date: 11/20/2024 Batching Operator Referral for Liver enzymes level above reference range Please call patient to schedule an appointment. Thank you. Referring Physician: Naila Moreno Internal Medicine, Encounter Date: 11/20/2024 Orthopedic Surgeon Referral for Pain of left shoulder joint Please call patient to schedule an appointment. Thank you. Referring Physician: Naila Moreno Internal Medicine, Encounter Date: 11/20/2024 Vascular Surgeon Referral fo r Carotid artery stenosis Please call patient to schedule an appointment. Thank you. Referring Physician: Naila Moreno, Internal Medicine, Encounter Date: 11/20/2024 Results Created Date Observation Date Name Description Value Unit Range Abnormal Flag Note LastModifiedBy Organization Detail LastModifiedTime 08/27/20 24 08/30/2024 CULTU RE, SPUTU M/LOW ER RESPI RATOR Y culture, sputum/lower respiratory SEE NOTE abnormal CULTU RE, SPUTU M/LOW ER RESPI RATOR Y Micro Numbe r: [id number] Test Statu s: Final Speci men Sourc e: Sputu m Speci men Quali ty: Adequ ate Gram Stain : Few epith elial cells Few White blood cells seen Many Gram posit dontae cocci in chain s Few Mixed bacte rial tru Gram stain indic ates that the speci men is repre senta tive of the lower respi rator y tract . Resul t: Growt h of hilaria l oroph aryng eal tru . We recei iglesia a lower respi rator y speci men with an order for an aerob ic or aerob ic/an aerob ic cultu re. This body site is not appro priat e for the test reque sted, there fore an aerob ic sputu m/low er respi rator y cultu re was perfo rmed. If this is not what you inten ded to order , pleas e conta ct your local clien t servi ce repre senta tive immed iatel y so that we can adjus t our galen ng appro priat jason. You may also inqui re about alter nativ e or addit ional testi ng. Not Available [facility] [employer] [facility] [address], [place], [address], 08/30/2024 09:54:32 08/08/2006/18/2024 compl ete PFT w/ [facility] hodil ator altagracia metry * No observ ation record ed. BARCODE Not Available 2023 11:25:37 10/01/19 25 10/01/2024 imagi ng/di agnos tic resul t No observ ation record ed. [address], [place], [address], 10/01/2024 21:41:55 Result Notes None recorded. Problems Name Problem SNOMED Code Status Onset Date Resolution Date Notes Provider Name and Address Organization Details Recorded Time Carotid artery stenosis 59071464 Active 2022 Not Available [facility] 4 22:24:36 Coronary arteriosc lerosis 83371553 Active 2022 Not Available [facility] 4 22:24:36 Vitamin D deficienc y 52978002 Active 2022 Not Available [facility] 4 22:24:36 Carotid artery stenosis 05699298 Active 2022 Not Available [facility] 4 22:24:36 Male hypogonad ism 31725338 Active 2022 Not Available [facility] 4 22:24:36 Diabetic periphera l neuropath y 475150313 Active 2022 Not Available [facility] 4 22:24:36 Bilateral foot congenita l pes cavus 05077104616 046144 Active 2022 Not Available [facility] 4 22:24:35 Melendez's esophagus 441899995 Active 2022 Not Available [facility] 4 22:24:36 Transient cerebral ischemia 081022580 Active 2023 Naila albright MD [address], [address], [place], [address] , [employer] 4 12:46:26 Serum vitamin B12 below reference range 551601243 Active 2023 Naila albright MD [address], [address], [place], [address] , [employer] 4 12:46:26 Chronic kidney disease 880389697 Active 2023 Naila albright MD [address], [address], [place], [address] , [employer] 4 10:23:58 Osteoarth ritis of right knee joint 59410633155 9100 Active 2023 ANGIE Martinez [address], [address], [place], [address] , [facility] 4 16:55:12 Penile candidias is 623369883 Active 2023 Naila albright MD [address], [address], [place], [address] , [facility] 4 14:16:16 Chronic obstructi ve pulmonary disease 82273003 Active 2023 Naila albright MD [address], [place], [address] , [facility] 4 14:16:16 Mild chronic obstructi ve pulmonary disease 676343872 Active 2023 Duncan Suarez MD [address], [address], [place], [address] , [facility] 4 16:48:00 Posterior rhinorrhe a 58557985 Active 2023 Duncan Suarez MD [address], [address], [place], [address] , [facility] 4 17:22:34 Dysphonia 26722971 Active 2023 Duncan Suarez MD [address], [place], [address] , [facility] 4 09:26:26 Liver enzymes level above reference range 532435595 Active 2024 Naila albright MD [address], [address], [place], [address] , [facility] 5 12:14:26 Proteinur ia 85422077 Active 2024 Naila albright MD [address], [address], [place], [address] , [place] [facility] 5 12:14:26 Chronic pain 66726655 Active 2024 Naila albright MD [address], [address], [place], [address] , [place] [facility] 5 12:14:26 Type 2 diabetes mellitus without complicat ion 347020777 Active 2024 Naila albright MD [address], [address], [place], [address] , [place] [facility] 5 12:14:26 Pain of right knee joint 03758512412 4100 Active 2024 Naila albright MD [address], [address], [place], [address] , [place] [facility] 5 12:14:26 Abdominal pain 18781866 Active 2024 Naila albright MD [address], [address], [place], [address] , [place] [facility] 5 12:14:26 Pneumonia 681712901 Active 2024 Naila albright MD [address], [address], [place], [address] , [place] [facility] 5 12:14:26 Acute allergic reaction 395951715 Active 2024 Naila albright MD [address], [address], [place], [address] , [place] [facility] 5 12:14:26 Bilateral hip joint pain 39091697765 000032 Active 2024 Naila albright MD [address], [address], [place], [address] , [place] [facility] 5 12:14:26 Pain of left shoulder joint 80598400777 349726 Active 2024 Naila albright MD [address] [facility], [facility] [address], [place], [address] , [facility] 5 12:32:15 Chronic back pain 616475609 Active 1990 on pain meds from Dr Villatoro Not Available [facility] 4 22:24:35 Impacted cerumen 79356064 Completed Not Available [facility] 3 04:53:49 Gastroeso phageal reflux disease 043109334 Active Not Available [facility] 4 22:24:36 Microalbu minuria 938057037 Active 2021 Not Available [facility] 4 22:24:36 Restless legs 22319291 Active 2017 Not Available [facility] 4 22:24:36 Sinusitis 34244382 Completed Not Available [facility] 3 04:53:50 Solitary nodule of lung 631911827 Active 2022 Not Available [facility] 4 22:24:36 Herpes zoster 5107042 Completed Not Available [facility] 3 04:53:50 Hip pain 30494386 Completed Not Available [facility] 3 04:53:50 Dysuria 58684331 Completed Not Available [facility] 3 04:53:50 Hyperlipi demia [id number] Active Not Available [facility] 4 22:24:36 Essential hypertens ion [id number] Active Not Available [facility] 4 22:24:36 Diarrhea [id number] Completed Not Available [facility] 3 04:53:51 Polyp of colon [id number] Active Not Available [facility] 4 22:24:36 Notes:Medical History: TIA 2 023 R>L tinnitus Rhinitis with postnasal drip IgE 112 IU/mL Eosinophils 90/uL Goiter Mild COPD RUL nodule Mixed hyperlipidemia T2DM with microalbuminuria & neuropathy CAD Hiatal hernia with ALEX & Melendez's esophagus Hepatic steatosis Diverticulosis Thoracolumbar DDD Right knee chondromalacia & bursitis RLS Procedure History: T&A 1962 Anterior cervical discectomy fusion (ACDF) 1998 Left hip replacement 2007 Colonoscopy with candelaria ypectomy 2010 Right hip replacement 2018 Right carotid artery stent 2022 Cholecystectomy 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 Procedures Surgical History Date Name Laterality Status Provider Name and Address Organization Details Recorded Time 10/08/19 25 Ortho - Cortisone Injection completed Bailey Hernandez MD [address], [place], [address], [employer] 10/08/2024 15:44:23 06/04/20 24 Transitional_Car e_Management completed Naila Moreno MD [address], [address], [place], [address], [employer] 06/04/2024 14:34:44 05/26/20 24 Transitional_Car e_Management completed Naila Moreno MD [address], [address], [place], [address], [employer] 05/26/2024 18:46:46 04/03/20 24 Medicare Wellness CPT Code, subsequent completed Sumeet Lai LPN [employer] 04/01/2024 12:41:54 05/02/20 23 Colonoscopy completed LEE Boyd [employer] 05/16/2023 14:33:53 02/01/20 19 Total hip arthroplasty completed Not Available [employer] [facility] [employer] 11/15/2022 04:43:55 [facility] 04:43:55 Orthopedic Surgery completed Not Available [facility] 11/15/2022 04:43:55 Orthopedic Surgery completed Not Available [facility] 11/15/2022 04:43:55 insertion of carotid artery stent completed LEE Boyd [employer] 03/28/2023 14:33:51 Imaging Results Imaging Date Name Status LastModified by Organization Details LastModified Time 06/18/2024 complete PFT w/ post bronchodilator spirometry* completed [employer] Information not available 08/08/2024 11:25:37 10/01/2024 imaging/diagnostic result active [address], [place], [address], 10/01/2024 21:41:55 Procedure Notes None recorded. Medical Equipment None Reported. Allergies No known drug allergies Medications Name Sig Start Date Stop Date Status Note LastModified by Organization Details LastModified Time losartan 50 mg tablet TAKE 1 TABLET BY MOUTH TWICE DAILY 11/20 completed Not Available Not Available Not Available celecoxib 200 mg capsule TAKE 1 CAPSULE BY MOUTH ONCE DAILY active Not Available Not Available No t Available cyclobenz aprine 10 mg tablet TAKE 1 TABLET BY MOUTH EVERY 8 HOURS NEEDED 05/26 completed Not Available Not Available Not Available atorvasta tin 40 mg tablet TAKE 1 TABLET BY MOUTH ONCE DAILY active Not Available Not Available No t Available doxycycli ne hyclate 100 mg capsule 11/20 completed Not Available Not Available Not Available atorvasta tin 20 mg tablet Take 1 tablet by mouth once daily *PLEASE MAKE AN OFFICE VISIT FOR MORE REFILLS* active Not Available Not Available No t Available ipratropi um 0.5 mg-albute rol 3 mg (2.5 mg base)/3 mL nebulizat ion soln Inhale 3 mL 4 times a day by nebuliza tion route as needed. 05/24 completed Not Available Not Available Not Available albuterol sulfate 2.5 mg/3 mL (0.083 %) solution for nebulizat ion USE 1 VIAL IN NEBULIZE R EVERY 6 HOURS AND NEEDED 06/04 completed Not Available Not Available Not Available azithromy erin 250 mg tablet TAKE 1 TABLET BY MOUTH ONCE DAILY FOR 4 DAYS; START ON DAY 2 OF THERAPY 07/08 completed Not Available Not Available Not Available metoprolo l succinate ER 50 mg tablet,ex tended release 24 hr TAKE 1 TABLET BY MOUTH ONCE DAILY active Not Available Not Available No t Available valacyclo vir 1 gram tablet Take 1 tablet every 8 hours by oral route for 7 days. active Not Available Not Available No t Available OxyContin 20 mg tablet,ex tended release active Not Available Not Available Not Available hydrocodo ne 5 mg-acetam inophen 325 mg tablet active Not Available Not Available Not Available meloxicam 15 mg tablet Take 1 tablet every day by oral route. active Not Available Not Available No t Available bupivacai ne HCl 0.5 % (5 mg/mL) injection solution Take 20 mg by injectio n route. 2024 active Not Available Not Available Not Avai lable prednison e 20 mg tablet TAKE 2 TABLETS BY MOUTH ONCE DAILY 05/26 completed Not Available Not Available Not Available Prilosec 20 mg capsule,d elayed release Take 1 capsule every day by oral route. 06/16 completed Not Available Not Available Not Available prednison e 5 mg tablet TAKE 7 TABLETS DAILY BY MOUTH FOR 4 DAYS,FOL LOWED BY 6 TABLETS DAILY FOR 4 DAYS,THE N 5 TABLETS DAILY FOR 4 DAYS,THE N 4 TABLETS DAILY FOR 4 DAYS,THE N 3 TABLETS DAILY FOR 4 DAYS,THE N 2 TABLETS DAILY FOR 4 DAYS,THE N 1 TABLET DAILY FOR 4 DAY. 03/28 completed Not Available Not Available Not Available Lantus U-100 Insulin 100 unit/mL subcutane ous solution INJECT 20 UNITS SUBCUTAN EOUSLY IN THE MORNING 03/28 completed Not Available Not Available Not Available metronida zole 500 mg tablet Take 1 tablet every 8 hours by oral route. active Not Available Not Available No t Available clopidogr el 75 mg tablet Take 1 tablet every day by oral route for 30 days. 05/24 completed Not Available Not Available Not Available chlorthal idone 25 mg tablet TAKE 1 TABLET BY MOUTH ONCE DAILY active Not Available Not Available No t Available amlodipin e 5 mg tablet Take 1 tablet every day by oral route. 11/10 completed Not Available Not Available Not Available morphine ER 30 mg tablet,ex tended release TAKE 1 TABLET EVERY 8 HOURS 02/09 completed Not Available Not Available Not Available peg-elect rolyte solution 420 gram oral solution TAKE 1/2 BY MOUTH AT 5 PM ON 05/01 THEN TAKE 1/2 AT 5 AM ON 05/02 completed Not Available Not Available Not Available omeprazol e 40 mg capsule,d elayed release TAKE 1 CAPSULE BY MOUTH ONCE DAILY NEEDED active Not Available Not Available No t Available tramadol 50 mg tablet active Not Available Not Available Not Available amitripty line 50 mg tablet TAKE ONE TABLET BY MOUTH AT BEDTIME 06/16 completed as needed Not Available Not Available Not Available simvastat in 40 mg tablet active Currentl y not taking Not Available Not Available Not Available meloxicam 7.5 mg tablet Take 1 tablet every day by oral route as needed for 30 days. active Not Available Not Available No t Available methocarb jazmin 750 mg tablet TAKE 1 TABLET BY MOUTH THREE TIMES DAILY NEEDED active Not Available Not Available No t Available ropinirol e 0.25 mg tablet TAKE 1 TABLET BY MOUTH ONCE DAILY BEFORE BEDTIME 08/13 completed Not Available Not Available Not Available Kenalog 10 mg/mL suspensio n for injection Take 10 mg by injectio n route. 2024 active [facility]: [id number] - Not Available Not Available Not Available amlodipin e 10 mg tablet TAKE 1 TABLET BY MOUTH ONCE DAILY 03/28 completed stopped in hospital Not Available Not Available Not Available hydrocodo ne 7.5 mg-acetam inophen 325 mg tablet 08/13 completed Not Available Not Available Not Available metformin 1,000 mg tablet Take 1 tablet by mouth twice daily 03/28 completed stoopped in hospital Not Available Not Available Not Available ropinirol e 0.5 mg tablet TAKE 1 TABLET BY MOUTH ONCE DAILY AT BEDTIME active Not Available Not Available No t Available Gentle Laxative (bisacody l) 5 mg tablet,de layed release TAKE ALL 6 TABLETS BY MOUTH AT 8 AM ON 05/01 completed Not Available Not Available Not Available prednison e 50 mg tablet TAKE 1 TABLET BY MOUTH ONCE DAILY FOR 5 DAYS. TAKE WITH FOOD. 03/28 completed Not Available Not Available Not Available Advair Diskus 250 mcg-50 mcg/dose powder for inhalatio n Inhale 1 puff twice a day by inhalati on route. 06/13 completed Not Available Not Available Not Available metoprolo l tartrate 50 mg tablet TAKE 1 TABLET BY MOUTH TWICE DAILY 03/28 completed stopped in hospital Not Available Not Available Not Available nystatin- triamcino lone 100,000 unit/g-0. 1 % topical cream APPLY CREAM TOPICALL Y TO AFFECTED AREA TWICE DAILY 06/03 completed Not Available Not Available Not Available diclofena c sodium 75 mg tablet,de layed release Take 1 tablet twice a day by oral route as needed. 03/28 completed stopped in hospital Not Available Not Available Not Available aspirin 81 mg tablet Take 1 tablet every day by oral route. 06/04 completed Not Available Not Available Not Available lisinopri l 5 mg tablet TAKE 1 TABLET BY MOUTH ONCE DAILY 08/30 completed Not Available Not Available Not Available hydrochlo rothiazid e 25 mg tablet TAKE 1 TABLET BY MOUTH ONCE DAILY 03/28 completed stopped in hospital Not Available Not Available Not Available furosemid e 20 mg tablet Take 1 tablet by oral route. active Not Available Not Available No t Available gabapenti n 100 mg capsule TAKE 1 CAPSULE BY MOUTH THREE TIMES DAILY 03/28 completed stopped in hospital Not Available Not Available Not Available ergocalci ferol (vitamin D2) 1,250 mcg (50,000 unit) capsule 11/28 completed Not Available Not Available Not Available levofloxa erin 500 mg tablet Take 1 tablet every 24 hours by oral route for 7 days. 10/16 completed Not Available Not Available Not Available levofloxa erin 750 mg tablet 11/20 completed Not Available Not Available Not Available methylpre dnisolone 4 mg tablets in a dose pack take as directed on the package 11/28 completed Not Available Not Available Not Available albuterol sulfate HFA 90 mcg/actua tion aerosol inhaler Inhale 1 puff every 4 hours by inhalati on route as needed. 2023 active Not Available Not Available Not Avai lable sodium polystyre ne sulfonate oral powder Take 30 g every day by oral route for 2 days. 10/11 completed AT [facility] Not Available Not Available Not Available ipratropi um bromide 42 mcg (0.06 %) nasal spray [place] 1 spray 4 times a day by intranas al route. active Not Available Not Available No t Available lisinopri l 40 mg tablet TAKE 1 TABLET BY MOUTH ONCE DAILY 03/28 completed stopped in hospital Not Available Not Available Not Available ondansetr on 4 mg disintegr ating tablet 05/08 completed Not Available Not Available Not Available metformin ER 500 mg tablet,ex tended release 24 hr TAKE 1 TABLET BY MOUTH TWICE DAILY active Not Available Not Available No t Available calcitrio l 0.25 mcg capsule TAKE 1 CAPSULE BY MOUTH ONCE DAILY active Not Available Not Available No t Available naproxen 500 mg tablet TAKE 1 TABLET BY MOUTH TWICE DAILY NEEDED FOR 15 DAYS 04/03 completed Not Available Not Available Not Available Microlet Lancet USE DIRECTED TO TEST GLUCOSE 3 TIMES DAILY 06/03 completed Not Available Not Available Not Available amoxicill in 875 mg-potass ium clavulana te 125 mg tablet TAKE 1 TABLET BY MOUTH EVERY 12 HOURS FOR 7 DAYS 07/08 completed Not Available Not Available Not Available oxycodone 5 mg tablet active Not Available Not Available Not Available olmesarta n 20 mg tablet TAKE 1 TABLET BY MOUTH ONCE DAILY 08/30 completed Not Available Not Available Not Available Pneumovax -23 25 mcg/0.5 mL injection syringe 08/24 completed Not Available Not Available Not Available azithromy erin 500 mg tablet 11/20 completed Not Available Not Available Not Available ezetimibe 10 mg tablet Take 1 tablet every day by oral route. 03/28 completed stopped in hospital Not Available Not Available Not Available rosuvasta tin 40 mg tablet TAKE 1 TABLET BY MOUTH ONCE DAILY 11/28 completed Not Available Not Available Not Available Spiriva with HandiH[employer] r 18 mcg and inhalatio n capsules Inhale 1 capsule every day by inhalati on route. 03/28 completed we give him samples when we have it Not Available Not Available Not Available pregabali n 75 mg capsule ONE CAP IN THE MORNING AND 2 CAPS AT NIGHT AT BEDTIME 08/27 completed Not Available Not Available Not Available fenofibra te nanocryst allized 145 mg tablet TAKE ONE TABLET BY MOUTH ONCE DAILY 01/30 completed Not Available Not Available Not Available budesonid e-formote rol HFA 160 mcg-4.5 mcg/actua tion aerosol inhaler INHALE 2 PUFFS BY MOUTH TWICE DAILY 10/16 completed Not Available Not Available Not Available peg 3350-elec trolytes 236 gram-22.7 4 gram-6.74 gram-5.86 gram solution TAKE 1/2 OF SOLUTION AT 5 PM ON 10/18/23, THEN DRINK OTHER 1/2 OF SOLUTION AT 5 AM ON 10/19/2311/04 completed Not Available Not Available Not Available Lantus Solostar U-100 Insulin 100 unit/mL (3 mL) subcutane ous pen INJECT 10 UNITS SUB-Q IN THE EVENING 2023 active Not Available Not Available Not Avai lable Xarelto 10 mg tablet 08/13 completed Not Available Not Available Not Available Farxiga 10 mg tablet Take 1 tablet every day by oral route. 12/09 completed given samples 05/17/23 Not Available Not Available Not Available Anoro Ellipta 62.5 mcg-25 mcg/actua tion powder for inhalatio n Inhale 1 puff every day by inhalati on route. 2023 active Not Available Not Available Not Avai lable Jardiance 10 mg tablet Take 1 tablet every day by oral route for 90 days. 12/02 completed Not Available Not Available Not Available Narcan 4 mg/actuat ion nasal spray 08/13 completed Not Available Not Available Not Available Accu-Chek Guide test strips USE 1 STRIP THREE TIMES DAILY 06/03 completed Not Available Not Available Not Available Accu-Chek Guide Glucose Meter USE TO CHECK BLOOD SUGAR THREE TIMES DAILY 06/03 completed Not Available Not Available Not Available Trelegy Ellipta 100 mcg-62.5 mcg-25 mcg powder for inhalatio n INHALE 1 PUFF ONCE DAILY active Not Available Not Available No t Available Trelegy Ellipta 200 mcg-62.5 mcg-25 mcg powder for inhalatio n INHALE 1 PUFF ONCE DAILY 07/14 completed DUplicat e Pt on 100mcg from Dr. Suarez Not Available Not Available Not Available Vitals Date Recorded Body height Body mass index (BMI) Body weight Body temperature Heart rate Oxygen saturation Oxygen saturation in Arterial blood by Pulse oximetry Provider Name and Address Organization Details Last Updated DateTime 4 162.56 cm 25.3 kg/m2 03303.8 g 98.2 [degF] 81 /min 97 % 97 % Gayle Quintanilla MA [employer] [facility] [employer] 08:54:56 Date Recorded Heart rate Respiratory rate Systolic blood pressure Diastolic blood pressure Provider Name and Address Organization Details Last Updated DateTime 08/27/2024 81 /min 17 /min 140 mm[Hg] 84 mm[Hg] Duncan jose MD [address] [facility], [facility] [address], [place], [address] , [place] [employer] [facility] [employer] 08/27/2024 09:17:52 Date Recorded Body height Body mass index (BMI) Body weight Body temperature Heart rate Systolic blood pressure Diastolic blood pressure Provider Name and Address Organization Details Last Updated DateTime 5 162.56 cm 23.3 kg/m2 59019.5 6 g 97.7 [degF] 78 /min 140 mm[Hg] 80 mm[Hg] LEE Boyd [facility] [employer] 5 11:57:16 Date Recorded Body height Body mass index (BMI) Body weight Provider Name and Address Organization Details Last Updated DateTime 10/08/2024 162.56 cm 23.3 kg/m2 15289.56 g [employer] [facility] [employer] 10/08/2024 14:27:08 Date Recorded Body height Body mass index (BMI) Body weight Body temperature Heart rate Oxygen saturation Oxygen saturation in Arterial blood by Pulse oximetry Pain severity - 0-10 verbal numeric rating [Score] - Reported Systolic blood pressure Diastolic blood pressure Provider Name and Address Organization Details Last Updated DateTime 5 162.56 cm 22.8 kg/m2 86733.7 9 g 97.8 [degF] 81 /min 97 % 97 % 10 160 mm[Hg] 82 mm[Hg] Gayle Quintanilla MA [facility] [employer] 5 11:56:05 Date Recorded Body height Body mass index (BMI) Body weight Provider Name and Address Organization Details Last Updated DateTime 12/03/2024 162.56 cm 23.3 kg/m2 54750.56 g [facility] [employer] 12/03/2024 14:53:40 Social History Question Answer Notes LastModified by Organization Details LastModified Time Tobacco Smoking Status Former [facility] [employer] [facility]/28/2023 14:32:44 Do You Have An Advance Directive? Yes Patient Stated He Needs To Update Since . Recommended Working With An Poising Inspector. [id number] Information not available 11/15/2022 What Is Your Level Of Alcohol Consumption? None MIGRATION.175 [id number] Information not available 11/15/2022 Do You Wear A Helmet When Biking? No Does Not Bike [email or web address] Information not available 04/03/2024 Are You Blind Or Do You Have Difficulty Seeing? No MIGRATION.243 [id number] Information not available 11/15/2022 Is Blood Transfusion Acceptable In An Emergency? Yes [email or web address] Information not available 04/03/2024 What Is Your Level Of Caffeine Consumption? Moderate MIGRATION.218 [id number] Information not available 11/15/2022 How Much Tobacco Do You Chew? None MIGRATION.536 [id number] Information not available 11/15/2022 In The 14 Days Before Symptom Onset, Have You Had Close Contact With A Laboratory-conf irmed COVID-19 While That Case Was Ill? No MIGRATION.329 [id number] Information not available 11/15/2022 In The 14 Days Before Symptom Onset, Have You Had Close Contact With A Person Who Is Under Investigation For COVID-19 While That Person Was Ill? No MIGRATION.358 [id number] Information not available 11/15/2022 Are You Currently Employed? No Information not available 03/28/2023 Are You Deaf Or Do You Have Serious Difficulty Hearing? No MIGRATION.305 [id number] Information not available 11/15/2022 What Type Of Diet Are You Following? REGULAR MIGRATION.445 [id number] Information not available 11/15/2022 Which Illicit Or Recreational Drugs Have You Used? None MIGRATION.307 [id number] Information not available 11/15/2022 What Is The Highest Grade Or Level Of School You Have Completed Or The Highest Degree You Have Received? [id number] [email or web address] Information not available 04/03/2024 Do You Have An Electrostatic Air Filter? No Information not available 08/27/2024 What Is Your Occupation? Retired MIGRATION.268 [id number] Information not available 11/15/2022 How Many Days Of Moderate To Strenuous Exercise, Like A Brisk Walk, Did You Do In The Last 7 Days? 2 [email or web address] Information not available 04/03/2024 On Those Days That You Engage In Moderate To Strenuous Exercise, How Many Minutes, On Average, Do You Exercise? 30 [email or web address] Information not available 04/03/2024 Have You Been Exposed To Chemicals Or Toxins? No No That Aware Of Information not available 08/27/2024 Have There Been Any Changes To Your Family Or Social Situation? No MIGRATION.587 [id number] Information not available 11/15/2022 What Is The Fluoride Status Of Your Home? Unknown MIGRATION.931 [id number] Information not available 11/15/2022 When Did You Quit Smoking? 1-5yearssincelastc igarette [email or web address] Information not available 04/05/2023 Are There Any Guns Present In Your Home? No MIGRATION.277 [id number] Information not available 11/15/2022 Do You Have A Humidifier? No Information not available 08/27/2024 Do You Use Insect Repellent Routinely? No MIGRATION.467 [id number] Information not available 11/15/2022 Where Do You Live? SingleLevelHouse MIGRATION.541 [id number] Information not available 11/15/2022 Presence Of Domestic Violence No [email or web address] Information not available 04/03/2024 Guns Present In The Home? No [email or web address] Information not available 04/03/2024 Are You Able To Care For Yourself? Yes Information not available 04/03/2024 Are You Blind Or Do Yo Have Difficulty Seeing? No [email or web address] Information not available 04/03/2024 Are You Deaf Or Do You Have Serious Difficulty Hearing? No [email or web address] Information not available 04/03/2024 General Stress Level? Low [email or web address] Information not available 04/03/2024 Live Alone Of With Others? With Others Dtr. And Her Family Lives Woth Patient [email or web address] Information not available 04/03/2024 Do You Have A Medical Power Of Poising Inspector? No Information not available 04/03/2024 Do You Have Moisture Problems In Your Home? No Information not available 08/27/2024 What Was The Date Of Your Most Recent Tobacco Screening? 11/20/2024 Information not available 11/20/2024 What Is Your Current Pack Years? [email or web address] MIGRATION.195 [id number] Information not available 11/15/2022 Do You Have Any Pets? No 1 Dog 1 Cat [email or web address] Information not available 04/03/2024 What Is Your Relationship Status? MIGRATION.589 [id number] Information not available 11/15/2022 Do You Use Your Seat Belt Or Car Seat Routinely? Yes MIGRATION.248 [id number] Information not available 11/15/2022 Do You Have Smoke And Carbon Monoxide Detectors In Your Home? Yes MIGRATION.414 [id number] Information not available 11/15/2022 At What Age Did You Start Smoking Tobacco? 18 MIGRATION.754 [id number] Information not available 11/15/2022 Are You Passively Exposed To Smoke? No [email or web address] Information not available 04/03/2024 Are There Any Smokers In Your House? No [email or web address] Information not available 04/03/2024 How Much Tobacco Do You Smoke? No Was 1/2 Ppd Information not available 03/28/2023 What Types Of Sporting Activities Do You Participate In? None Information not available 04/03/2024 Do You Feel Stressed (tense, Restless, Nervous, Or Anxious, Or Unable To Sleep At Night)? [id number] MIGRATION.822 [id number] Information not available 11/15/2022 Do You Use Any Illicit Or Recreational Drugs? No MIGRATION.893 [id number] Information not available 11/15/2022 Do You Use Sunscreen Routinely? Yes MIGRATION.039 [id number] Information not available 11/15/2022 How Many Years Have You Smoked Tobacco? 53 MIGRATION.759 [id number] Information not available 11/15/2022 Have You Recently Traveled Abroad? No MIGRATION.511 [id number] Information not available 11/15/2022 Do You Have Any Dietary Restrictions? No MIGRATION.025 [id number] Information not available 11/15/2022 Do You Or Have You Ever Used Any Other Forms Of Tobacco Or Nicotine? No MIGRATION.010 [id number] Information not available 11/15/2022 Sex: Male Functional Status Question Answer Note LastModified by Organizat ion Details LastModified Time Do you have difficulty walking or climbing stairs? No [id number] Information not available 11/15/2022 Do you have transportation difficulties? No MIGRATION.[id number] Information not available 11/15/2022 Are you able to walk? YESWOREST [id number] Information not available 11/15/2022 Do you have difficulty doing errands alone? No MIGRATION.[id number] Information not available 11/15/2022 Are you able to care for yourself? Yes MIGRATION.[id number] Information not available 11/15/2022 Do you have difficulty dressing or bathing? No MIGRATION.[id number] Information not available 11/15/2022 What is your exercise level? Occasional Active life [email or web address] Information not available 04/03/2024 Mental Status Question Answer Note LastModified by Organizat ion Details LastModified Time Do you have difficulty concentrating, remembering or making decisions? No MIGRATION.[id number] Information not available 11/15/2022 Family History Relationship Description Onset Age of this Age Resolved Age Notes LastModified by Organization Details LastModified Time Brother Essential hypertension MIGRATION.104 [id number] Not available 11/15/2022 04:44:01 Brother Malignant neoplastic disease Colon MIGRATION.754 [id number] Not available 11/15/2022 04:44:01 Father Essential hypertension MIGRATION.575 [id number] Not available 11/15/2022 04:44:01 Father Heart disease MIGRATION.010 [id number] Not available 11/15/2022 04:44:01 Mother Essential hypertension MIGRATION.399 [id number] Not available 11/15/2022 04:44:01 Mother Heart disease MIGRATION.839 [id number] Not available 11/15/2022 04:44:01 Sister Malignant neoplastic disease Breast MIGRATION.934 [id number] Not available 11/15/2022 04:44:02 Maternal Grandmother Family history of stroke [email or web address] Not available 2022 14:36:39 Mother Arthritis Not available 07/10/2023 15:37:23 Mother Osteoporosis Not availa ble 07/10/2023 15:37:45 Medical History Condition Response ARTHRITIS Y USE OF BLOOD THINNERS Y DIABETES, TYPE Y SLEEP DISORDER Y BACK / NECK PROBLEMS Y HEARTBURN / REFLUX Y HYPERTENSION Y STROKE/TIA Y HIGH CHOLESTEROL / HYPERLIPIDEMIA Y Immunizations Vaccine Type Date Status Note Provider Nam e and Address Organization Details Recorded Time COVID-19, mRNA, LNP-S, PF, 100 mcg/0.5mL dose or 50 mcg/0.25mL dose completed [facility] [employer] 04/01/2024 14:20:36 COVID-19, mRNA, LNP-S, PF, 100 mcg/0.5mL dose or 50 mcg/0.25mL dose completed SANDRA Rosa [employer] [facility] 04/01/2024 14:20:36 pneumococcal polysaccharide PPV23 3 completed SANDRA Rosa, [facility] 04/01/2024 14:20:36 Influenza, split virus, trivalent, PF 7 completed SANDRA Rosa, [facility] 04/01/2024 14:20:37 COVID-19, mRNA, LNP-S, PF, 30 mcg/0.3 mL dose 1 completed Sumeet Lai LPN null, [facility] 04/01/2024 14:20:36 COVID-19, mRNA, LNP-S, PF, 30 mcg/0.3 mL dose 1 completed SANDRA Rosa, [facility] 04/01/2024 14:20:36 pneumococcal polysaccharide PPV23 7 completed SANDRA Rosa, [facility] 04/01/2024 14:20:36 Influenza, high-dose, trivalent, PF 9 completed Not Available [facility] 10/02/2023 01:29:04 Influenza, high-dose, trivalent, PF 8 completed Not Available [facility] 10/02/2023 01:29:04 Pneumococcal conjugate PCV 13 8 completed Sumeet Lai LPN gerard, [facility] 04/01/2024 14:20:36 Influenza, high-dose, trivalent, PF 5 completed Not Available [facility] 10/02/2023 01:29:04 pneumococcal polysaccharide PPV23 5 completed Not Available [facility] 10/02/2023 01:29:04 Influenza, split virus, trivalent, PF 4 completed Sumeet Lai LPN gerard, [facility] 04/01/2024 14:20:37 Influenza, split virus, trivalent, PF 3 completed SANDRA Rosa, [facility] 04/01/2024 14:20:37 Past Encounters Encounter ID Performer Location Encounter Start Date Encounter Closed Date Diagnosis/Indication Diagnosis SNOMED-CT Code Diagnosis ICD10 Code Diagnosis Note [id number] [facility] [address] [place] [address] 05/26/2021 00:00:00 06/07/2021 17:13:19 [id number] [facility] [place] [address] [place] [address] [place] [address] 05/26/2021 00:00:00 06/07/2021 17:22:34 [id number] [facility] [place] [address] [place] [address]. [place] [address] 10/11/2021 00:00:00 10/11/2021 12:15:42 [id number] [facility] [address] [place] [address] [place] [address] 11/10/2021 00:00:00 11/10/2021 14:15:46 [id number] [facility] [address] [place] [address]. [place] [address] 12/21/2021 00:00:00 12/21/2021 12:26:48 [id number] [facility] [address] [place] [address] 02/09/2022 00:00:00 02/09/2022 13:02:43 [id number] [facility] [address] [place] [address] 06/13/2022 00:00:00 06/13/2022 17:11:20 [id number] [facility] [address] [place] [address] 07/26/2022 00:00:00 07/26/2022 10:05:44 [id number] [facility] [address] [facility] [place] [address] 10/16/2022 00:00:00 10/16/2022 17:28:29 [id number] Josemanuel Jones MD [facility] [address] [place] [address] 02/22/2023 14:00:48 02/22/2023 14:44:11 Diabetes mellitus 75165646 E11.9 , advised to get labs Hyperlipidemia 91411505 E78.5 Zetia, needs labs Essential hypertension 91092856 I10 add HCTZ Restless legs 68133725 G 25.81 meds help Gastroesop hageal reflux disease 997283487 K21.9 meds help Chronic pain syndrome 37 7309356 G89.4 otc helps Bilateral hip joint pain 4401834740 9349255 M25.551 OTC Smoker 83452817 F17.200 advised to quit Solitary n odule of lung 576265509 R91.1 advised to quit smoking Adult heal th examination 866415805 Z00.00 colonoscop y- due, was ordered few times, he will call GI to schedule it, will not reorderPSA -07/07, WAS [id number] 09/23/2017PP 23- 07/28/2013 , 02/2017, 08/04/2015 influenza vaccine- 08/13/19CO VID- 12/26/2020 , 01/27/2021 Chronic ob structive pulmonary disease 65680115 J44.9 better Weakness o f left upper limb 1698439269 25854 M62.81 improved, watch, symptoms were vague Screening for malignant neoplasm of prostate 254020116 Z12.5 Depression screening 171 223802 Z13.31 neg Body mass index 20-24 - normal 276566270 Z68.23 [id number] Naila albright MD [facility] [place] [address] [facility] [place] [address] 03/28/2023 13:57:30 03/28/2023 15:13:44 Screening - NAD 258552025 Z13.9 C-scope: Get this done or get the report if done Get yearly flu shotUTD on COVID X2, can do boostersUT D on PCVGet tdap if not doneGet Shingrix if not done RTC in 3 months, do labs, ER if worse, he did verbalize his understand ing of the above Hyperlipidemia 96364426 E78.5 On ASAOn atorvastat in 40mg dailyGet labs 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 622965949 E11.9 On metformin Get labs Gastroesop hageal reflux disease without esophagitis 880213095 K21.9 On omeprazole Get EGD done Chronic ob structive pulmonary disease 50049249 J44.9 On albuterolO n HHNsOn trelegy Carotid ar angel stenosis 52791463 I65.29 S/p stent in 03/09On ASAOn plavix Restless legs 43262787 G 25.81 On requipDoes well Ex-cigarette smoker 2810 68488 Z87.891 LDCT 09/21/2022 Get US AAA done Coronary arteriosclerosis 43930707 I25.10 CAD noted Get a referral to cardiology Dr Guevara Screening for malignant neoplasm of colon 132204617 Z12.11 Transient cerebral ischemia 110146566 G45.[address] Schumacher his neurologis t, get last OV note S/p hospitaliz ation, does very well now, no residual symptoms at this timeOn [place] [id number] Duncan Suarez MD [facility] [address] [place] [address] 04/05/2023 11:23:02 04/06/2023 07:44:46 Dyspnea on exertion 77754606 R06.09 R05.9 T78.40XA D89.9 Solitary n odule of lung 132077985 R91.1 [id number] Naila albright MD [facility] [address] 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 317717132 E11.9 On metforminO n FarxigaOn olmesartan Get labs Gastroesop hageal reflux disease without esophagitis 557435174 K21.9 On omeprazole Get EGD done Chronic ob structive pulmonary disease 42973875 J44.9 On albuterolO n HHNsOn trelegy Carotid ar angel stenosis 07362572 I65.29 S/p stent in 03/09On ASAOn plavix Restless legs 17033573 G 25.81 On requipDoes well Ex-cigarette smoker 2810 04649 Z87.891 LDCT 09/21/2022 Get US AAA done as US AAA 04/04/2023 was non diagnostic d/t bowel gas Coronary arteriosclerosis 22815768 I25.10 CAD notedDr Bette 04/12/2023 , f/u in one month Screening for malignant neoplasm of colon 530115275 Z12.11 Transient cerebral ischemia 027486008 G45.9 CT Angio: 02/28/2023 : High grade stenosis, R ICA, s/p stent He does see Dr Schumacher his neurologis t, get last OV note S/p hospitaliz ation, does very well now, no residual symptoms at this timeOn ASAOn plavixOn atorvastat in Liver enzy mes level above reference range 338542146 R74.8 Get labs and US liver Proteinuria 42029312 R80 .9 Sees nephrology Pain of ri ght knee joint 3397787639 62831 M25.561 Get a referral to ortho Male hypogonadism 781756 06 E29.1 get labs Serum shane min B12 below reference range 970074469 R79.89 Vitamin D deficiency 347 52769 E55.9 [id number] ANGIE Ordonez [facility] [place] [address] [place] [address] 05/24/2023 13:58:48 05/24/2023 16:01:49 Pain of right knee joint 7158884302 22901 M25.782 [id number] Miguel A Balderrama DPM [facility] [place] [address] [facility], [place] [address] [place] [address] 07/10/2023 14:30:43 07/16/2023 09:50:24 Diabetic peripheral neuropathy 814368732 E11.40 Rx diabetic shoes and insertsPat ient educated on neuropathy , diabetes, diabetic diet, and daily foot exams. Patient is to check feet daily for new wounds, blisters, redness to prevent infection and ulceration s to the feet. Patient will return to clinic in 3 months for diabetic foot workup. Bilateral foot congenital pes cavus 6383207070 8317125 Q66.71 Q66.72 Recommend diabetic shoes and inserts History of cerebrovascular accident 368540039 Z86.73 continue with PCP recommenda tion [id number] Naila albright MD [facility] [place] [address] [facility], [address] [address] [place] [address] 08/30/2023 13:57:45 08/30/2023 15:23:44 Screening - NAD 762128204 Z13.9 C-scope: 05/02/2023 , Dr Dickson next in one year Get yearly flu shotUTD on COVID X2, can do boostersUT D on PCVGet tdap if not doneGet Shingrix if not done RTC in 3 months, do labs, ER if worse, he did verbalize his understand ing of the above Hyperlipidemia 42773428 E78.5 On ASAOn atorvastat in 40mg dailyGet labs 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 089575539 E11.9 On metforminO n FarxigaOn olmesartan Get labs Chronic ob structive pulmonary disease 04696196 J44.9 On albuterolO n HHNsOn trelegy Carotid ar angel stenosis 58600767 I65.29 S/p stent in 03/09On ASAOn plavix Restless legs 16863837 G 25.81 On requipDoes well Ex-cigarette smoker 2810 00351 Z87.891 LDCT 09/21/2022 Get US AAA done as US AAA 04/04/2023 was non diagnostic d/t bowel gas Coronary arteriosclerosis 55471998 I25.10 CAD notedDr Bette 04/12/2023 , f/u in one month Transient cerebral ischemia 031755989 G45.9 CT Angio: 02/28/2023 : High grade stenosis, R ICA, s/p stent He does see Dr Schumacher his neurologis t, get last OV note S/p hospitaliz ation, does very well now, no residual symptoms at this timeOn ASAOn plavixOn atorvastat in Liver enzy mes level above reference range 960729010 R74.8 ALP 128 03/28/2023 Get labs and US liver Proteinuria 31201060 R80 .9 US kidney 05/25/2023 : Dr Hinson IJ Pain of ri ght knee joint 5491558285 68859 M25.561 MRI R knee: 06/07/2023 : Dr Wilkins Male hypogonadism 373014 06 E29.1 get labs Serum shane min B12 below reference range 367861708 R79.89 Vitamin D deficiency 347 89346 E55.9 Get labs Melendez's esophagus 3029 91778 K22.70 On omeprazole 05/02/2023 : EGD BarrettsNe eds a follow up with GI Impacted c erumen of bilateral ears 2128525051 790241 H61.23 Moderate cerumen extracted from his fuentes ears 08/30/2023 , he tolerated the procedure well Upper resp iratory infection 65945135 J06.9 Get flu/strep and COVID 19 testStart on Z-pack, ER if worse Chronic pain 22047179 G8 9.29 Get a referral to pain management [id number] Naila albright MD [facility] Internal Med [place] [address] [facility], [facility] [address] [place] [address] 09/25/2023 15:56:57 09/25/2023 16:44:27 Abdominal pain 86711155 R10.9 Seen in the ER on 09/19/2023 and 09/24/2023 , still has some LLQ abdominal discomfort , s/p CT A/P 09/19 and 09/24, treated with antibiotic and IVF, upon getting IVF as per ER note he did feel better and he was d/cMetalli c object noted on CT on 09/24, will refer to Dr Fernando and he will see him this 09/27/2023 at 10.30am [id number] Subha patricia MD [facility] General Surgery [address] [facility] [address] [place] [address] 09/27/2023 11:17:35 09/27/2023 14:26:21 Foreign body 490671651 Z87.821 Foreign body [facility] [id number] Naila albright MD [facility] [address] [facility] [place] [address] 11/29/2023 09:48:07 11/29/2023 10:38:28 Screening - NAD 726948945 Z13.9 C-scope: 05/02/2023 , Dr Dickson next in one year Get yearly flu shotUTD on COVID X2, can do boostersUT D on PCVGet tdap if not doneGet Shingrix if not doneGet RSV vaccine RTC in 3 months, do labs, ER if worse, he did verbalize his understand ing of the above Hyperlipidemia 04218758 E78.5 On ASANot on atorvastat in 40mg daily On rosuvastat in 40mg dailyGet labs 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 798218280 E11.9 On metforminO n FarxigaNot on olmesartan Get labs Chronic ob structive pulmonary disease 06119623 J44.9 On albuterolO n HHNsNot on trelegy Carotid ar angel stenosis 51819113 I65.29 S/p stent in 03/09On ASAOn plavix Restless legs 99730897 G 25.81 Not on requipOn lyrica 75mg Dr Riojas well Ex-cigarette smoker 2810 27542 Z87.891 LDCT 09/21/2022 Get US AAA done as US AAA 04/04/2023 was non diagnostic d/t bowel gas US AAA 09/18/2023 : Neg Coronary arteriosclerosis 06747894 I25.10 CAD notedDr Bette 04/12/2023 , f/u in one month, referred 11/29/[address] 50mg daily Dr Sravan OTERO Transient cerebral ischemia 545094675 G45.9 CT Angio: 02/28/2023 : High grade stenosis, R ICA, s/p stent He does see Dr Schumacher his neurologis t, get last OV note S/p hospitaliz ation, does very well now, no residual symptoms at this timeOn ASANot on plavixNot on atorvastat in On rosuvatati n 40mg daily Liver enzy mes level above reference range 199742499 R74.8 ALP 128 03/28/2023 Get labs and US liver Addendum: 12/07/23US liver 12/03/2023 : Hepatic steatosis, triage notified Proteinuria 95051128 R80 .9 US kidney 05/25/2023 : Dr Sravan OTERO Pain of ri ght knee joint 9954604776 23712 M25.561 MRI R knee: 06/07/2023 : Dr Lemon erred to Dr Hernandez Male hypogonadism 511038 06 E29.1 get labs Serum shane min B12 below reference range 891508404 R79.89 Vitamin D deficiency 347 87071 E55.9 Get labs Melendez's esophagus 3029 24119 K22.70 On omeprazole 05/02/2023 : EGD Tonja eds a follow up with GI Chronic pain 22208103 G8 9.29 Get a referral to pain management today 11/29/2023 , states that he does not want any pain meds at all Abdominal pain 41883837 R10.9 Seen in the ER on 09/19/2023 and 09/24/2023 , still has some LLQ abdominal discomfort , s/p CT A/P 09/19 and 09/24, treated with antibiotic and IVF, upon getting IVF as per ER note he did feel better and he was d/cMetalli c object noted on CT on 09/24, will refer to Dr Fernando and he will see him this 09/27/[address] Fernando 09/27/2023 : Referred to GI, f/u PRN Today 11/29/2023 he continues to have LLQ abd tenderness and some epigastric tenderness Get a repeat CT A/P without today 11/29/2023 Addendum: 12/07/2023 CT A/P 11/29/2023 : Case sent Acute magi rgic reaction 969215977 T78.40XA Seen in ERTreated with steroids, now is doing well Chronic ki dney disease 245658900 N18.9 On calcitriol On losartan Sees Dr Hinson IJ [id number] Naila albright MD [facility] [place] [address] [facility] y , [place] [address] 12/10/2023 10:45:19 12/10/2023 11:26:10 Type 2 diabetes mellitus without complication 570979365 E11.9 On metformin ER 500mg daily, will increase to bidOn Farxiga 10mg daily but was not taking d/t costGet on Jardiance 10mg dailyIs adamant that he does not want to start on any insulin, states that he also was not very compliant with the metforminH e has be told to take his meds on scheduleNo t on olmesartan Get labs Penile candidiasis 63154 8000 B37.49 No more rash noted, he is using his nystatin-t rimacinolo ne cream and states that the rash is cleared up now Screening - NAD 04411709 3 Z13.9 C-scope: 05/02/2023 , Dr Dickson next in one year Get yearly flu shotUTD on COVID X2, can do boostersUT D on PCVGet tdap if not doneGet Shingrix if not doneGet RSV vaccine RTC in 3 months, do labs, ER if worse, he did verbalize his understand ing of the above Hyperlipidemia 44099813 E78.5 On ASAOn atorvastat in 40mg daily, states today 12/10/2023 that he has not been compliant with taking his medication , advised to become compliant and repeat the labs Not on rosuvastat in 40mg dailyGet labs Chronic ob structive pulmonary disease 81884542 J44.9 On albuterolO n HHNsNot on trelegy Carotid ar angel stenosis 47287941 I65.29 S/p stent in ASANot on plavixNeed s to see cardiology Restless legs 33242781 G 25.81 Not on requipOn lyrica 75mg Dr Riojas well Ex-cigarette smoker 2810 55210 Z87.891 LDCT 09/21/2022 Get US AAA done as US AAA 04/04/2023 was non diagnostic d/t bowel gas US AAA 09/18/2023 : Neg Coronary arteriosclerosis 20709879 I25.10 CAD notedDr Bette 04/12/2023 , f/u in one month, referred 11/29/[address] 50mg daily Dr Sravan OTEROHas to see Dr Amos Transient cerebral ischemia 722555237 G45.9 CT Angio: 02/28/2023 : High grade stenosis, R ICA, s/p stent He does see Dr Schumacher his neurologis t, get last OV note S/p hospitaliz ation, does very well now, no residual symptoms at this timeOn ASANot on plavixNot on atorvastat in On rosuvatati n 40mg daily Liver enzy mes level above reference range 934744020 R74.8 ALP 128 03/28/2023 Get labs and US liver Addendum: 12/07/23US liver 12/03/2023 : Hepatic steatosis, triage notified Proteinuria 41846468 R80 .9 US kidney 05/25/2023 : Dr Sravan OTERO Pain of ri ght knee joint 2881852013 79428 M25.561 MRI R knee: 06/07/2023 : Dr Lemon erred to Dr Hernandez Male hypogonadism 608466 06 E29.1 get labs Serum shane min B12 below reference range 080289593 R79.89 Vitamin D deficiency 347 10680 E55.9 Get labs Melendez's esophagus 3029 08736 K22.70 On omeprazole 05/02/2023 : EGD Tonja eds a follow up with GI Chronic pain 22239372 G8 9.29 Get a referral to pain management today 11/29/2023 , states that he does not want any pain meds at all Abdominal pain 42067543 R10.9 Seen in the ER on 09/19/2023 and 09/24/2023 , still has some LLQ abdominal discomfort , s/p CT A/P 09/19 and 09/24, treated with antibiotic and IVF, upon getting IVF as per ER note he did feel better and he was d/cMetalli c object noted on CT on 09/24, will refer to Dr Fernando and he will see him this 09/27/[address] Fernando 09/27/2023 : Referred to GI, f/u PRN Today 11/29/2023 he continues to have LLQ abd tenderness and some epigastric tenderness Get a repeat CT A/P without today 11/29/2023 Addendum: 12/07/2023 CT A/P 11/29/2023 : Case sent OV 12/10/2023 : Does well now, no more abd pain noted Acute magi rgic reaction 259790287 T78.40XA Seen in ERTreated with steroids, now is doing well Chronic ki dney disease 503922732 N18.9 On calcitriol On losartan Sees Dr Hinson IJ [id number] ANGIE Martinez [facility] [place] [address] [place] [address] 12/25/2023 14:36:22 12/25/2023 15:57:04 Pain of right knee joint 1432805045 73137 M25.561 Osteoarthr itis of right knee joint 9106050403 95583 M17.11 [id number] ANGIE Martinez [facility] [place] [address] [place] [address] 01/01/2024 14:25:42 01/01/2024 15:14:58 Bilateral hip joint pain 2094480477 9543304 M25.551 M25.552 Trochanter ic bursitis of right hip 4799842506 86037 M70.61 History of total replacement of bilateral hip joints 8837248034 666594 Z96.752 [id number] Naila albright MD [facility] [address] [facility], [address] [place] [address] 04/03/2024 10:08:29 04/03/2024 10:56:36 Screening - NAD 225148100 Z13.9 C-scope: 05/02/2023 , Dr Randolph navarro in one yearC-scop e: 01/04/2024 : Dr Randolph navarro in 2 years Get yearly flu shotUTD on COVID X2, can do boostersUT D on PCVGet tdap if not doneUTD on ShingrixGe t RSV vaccine RTC in 3 months, do labs, ER if worse, he did verbalize his understand ing of the above 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 527520216 E11.9 On metformin ER 500mg bidOn Farxiga 10mg daily but was not taking d/t Carson Jardiance 10mg daily Is adamant that he does not want to start on any insulin, states that he also was not very compliant with the metforminH e has be told to take his meds on scheduleNo t on olmesartan Get labs Penile candidiasis 49430 8000 B37.49 No more rash noted, he is using his nystatin-t rimacinolo ne cream and states that the rash is cleared up now Hyperlipidemia 52376088 E78.5 On ASAOn atorvastat in 40mg daily Not on rosuvastat in 40mg dailyGet labs Chronic ob structive pulmonary disease 58331129 J44.9 On albuterolO n HHNsNot on trelegyNee ds to keep apt with Dr Suarez Carotid ar angel stenosis 96246936 I65.29 S/p stent in 03/09On ASANot on plavixDr Bette [facility] 02/21/2024 , next in 6 months Restless legs 35717635 G 25.81 Not on requipOn lyrica 75mg Dr Riojas well Ex-cigarette smoker 2810 71316 Z87.891 LDCT 09/21/2022 Get US AAA done as US AAA 04/04/2023 was non diagnostic d/t bowel gas US AAA 09/18/2023 : Neg Coronary arteriosclerosis 76897040 I25.10 CAD noted On losartan 50mg daily Dr Sravan Hodges chlorthali done 25mg dailyDr Bette 02/20/2023 Transient cerebral ischemia 279982133 G45.9 CT Angio: 02/28/2023 : High grade stenosis, R ICA, s/p stent He does see Dr Schumacher his neurologis t, get last OV note S/p hospitaliz ation, does very well now, no residual symptoms at this timeOn ASANot on plavixNot on atorvastat in On rosuvatati n 40mg daily Liver enzy mes level above reference range 782801171 R74.8 ALP 128 03/28/2023 Get labs and US liver Addendum: 12/07/23US liver 12/03/2023 : Hepatic steatosis, triage notified Proteinuria 10733158 R80 .9 US kidney 05/25/2023 : Dr Sravan OTERO Pain of ri ght knee joint 4307831994 34310 M25.561 MRI R knee: 06/07/2023 : Dr Lemon erred to Dr Hernandez Male hypogonadism 305676 06 E29.1 get labs Serum shane min B12 below reference range 765374779 R79.89 Vitamin D deficiency 347 89567 E55.9 Get labs Melendez's esophagus 3029 33320 K22.70 On omeprazole 05/02/2023 : EGD Tonja eds a follow up with GI EGD 01/04/2024 : 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 Addendum: 04/03/2024 :See case, needs to get another EGD, he was notified Chronic pain 34638628 G8 9.29 Referred to pain management 11/29/2023 ,Advised not to take any NSAIDs d/t CAD and CKD issuesOK to refill his methocarba mol to take as needed in very limited quantities , if he needs more see pain management Abdominal pain 16483923 R10.9 Seen in the ER on 09/19/2023 and 09/24/2023 , still has some LLQ abdominal discomfort , s/p CT A/P 09/19 and 09/24, treated with antibiotic and IVF, upon getting IVF as per ER note he did feel better and he was d/cMetalli c object noted on CT on 09/24, will refer to Dr Fernando and he will see him this 09/27/[address] Fernando 09/27/2023 : Referred to GI, f/u PRN Today 11/29/2023 he continues to have LLQ abd tenderness and some epigastric tenderness Get a repeat CT A/P without today 11/29/2023 Addendum: 12/07/2023 CT A/P 11/29/2023 : Case sent OV 12/10/2023 : Does well now, no more abd pain noted Acute magi rgic reaction 952848041 T78.40XA Seen in ERTreated with steroids, now is doing well Chronic ki dney disease 330479422 N18.9 On calcitriol On losartan Sees Dr Sravan OTERO Bilateral hip joint pain 2642879313 7105318 M25.551 M25.552 Marcus ADAMS 01/01/2024 Adult heal th examination 240985167 Z00.00 Screening for disorder 742368627 Z13.9 [facility] 70626961 R25.2 Screening for malignant neoplasm of prostate 090259562 Z12.5 [id number] Naila albright MD [facility] Internal Med [place] [address] 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 [id number] E11.9 On metformin ER 500mg bidOn Farxiga 10mg daily but was not taking d/t Carson Jardiance 10mg daily Is adamant that he does not want to start on any insulin, states that he also was not very compliant with the metforminH e has be told to take his meds on scheduleNo t on olmesartan Get labs Penile candidiasis 27074 8000 B37.49 No more rash noted, he is using his nystatin-t rimacinolo ne cream and states that the rash is cleared up now Hyperlipidemia 87914902 E78.5 On ASAOn atorvastat in 40mg daily Not on rosuvastat in 40mg dailyGet labs Chronic ob structive pulmonary disease 73586385 J44.9 On albuterolO n HHNsOn trelegy as per d/c from [facility] 05/14/2024 Needs to keep apt with Dr Suarez!Today 05/26/2024 : Severe SOB and YAN, at this, he was referred to ER, 911 ambulance called [facility] Carotid ar angel stenosis 99889177 I65.29 S/p stent in ASANot on plavixDr Bette [facility] 02/21/2024 , next in 6 months Restless legs 70968957 G 25.81 Not on requipOn lyrica 75mg in am and [address] Riojas well Ex-cigarette smoker 2810 97065 Z87.891 LDCT 09/21/2022 Get US AAA done as US AAA 04/04/2023 was non diagnostic d/t bowel gas US AAA 09/18/2023 : Neg Coronary arteriosclerosis 26292313 I25.10 CAD noted On losartan 50mg daily Dr Sravan OTEROOn chlorthali done 25mg dailyDr Bette 02/20/2023 Transient cerebral ischemia 043989897 G45.9 CT Angio: 02/28/2023 : High grade stenosis, R ICA, s/p stent He does see Dr Schumacher his neurologis t, get last OV note S/p hospitaliz ation, does very well now, no residual symptoms at this timeOn ASANot on plavixNot on atorvastat in On rosuvastat in 40mg daily Liver enzy mes level above reference range 421188660 R74.8 ALP 128 03/28/2023 Get labs and US liver Addendum: 12/07/23US liver 12/03/2023 : Hepatic steatosis, triage notified Proteinuria 49204998 R80 .9 US kidney 05/25/2023 : Dr Sravan OTERO Pain of ri ght knee joint 3190855380 67817 M25.561 MRI R knee: 06/07/2023 : Dr Lemon erred to Dr Hernandez Male hypogonadism 023542 06 E29.1 get labs Serum shane min B12 below reference range 531991416 R79.89 Vitamin D deficiency 347 36486 E55.9 Get labs Melendez's esophagus 3029 38203 K22.70 On omeprazole 05/02/2023 : EGD BarrettsNe eds a follow up with GI EGD 01/04/2024 : 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 Addendum: 04/03/2024 :See case, needs to get another EGD, he was notified Chronic pain 70953909 G8 9.29 Referred to pain management 11/29/2023 ,Advised not to take any NSAIDs d/t CAD and CKD issuesOK to refill his methocarba mol to take as needed in very limited quantities , if he needs more see pain management Abdominal pain 93269387 R10.9 Seen in the ER on 09/19/2023 and 09/24/2023 , still has some LLQ abdominal discomfort , s/p CT A/P 09/19 and 09/24, treated with antibiotic and IVF, upon getting IVF as per ER note he did feel better and he was d/cMetalli c object noted on CT on 09/24, will refer to Dr Fernando and he will see him this 09/27/[address] Fernando 09/27/2023 : Referred to GI, f/u PRN Today 11/29/2023 he continues to have LLQ abd tenderness and some epigastric tenderness Get a repeat CT A/P without today 11/29/2023 Addendum: 12/07/2023 CT A/P 11/29/2023 : Case sent Acute magi rgic reaction 985042895 T78.40XA Seen in ERTreated with steroids, now is doing well Chronic ki dney disease 193731889 N18.9 On calcitriol On chlorthali done 25mg dailyOn losartan 50mg daily Sees Dr Sravan OTERO Bilateral hip joint pain 5730622946 3570165 M25.551 M25.552 Marcus ADAMS 01/01/2024 Screening for malignant neoplasm of prostate 765595972 Z12.5 Transition of care 75680 13802 105 Z75.8 [id number] Naila albright MD [facility] [place] [address] 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 751567180 E11.9 On metformin ER 500mg bidOn Farxiga 10mg daily but was not taking d/t Carson Jardiance 10mg dailyOn lantus 10U at bedtime Not on olmesartan Get labs Penile candidiasis 45788 8000 B37.49 No more rash noted, he is using his nystatin-t rimacinolo ne cream and states that the rash is cleared up now Hyperlipidemia 37177658 E78.5 On ASAOn atorvastat in 40mg daily Not on rosuvastat in 40mg dailyGet labs Chronic ob structive pulmonary disease 23537546 J44.9 On albuterolO n HHNsOn trelegy Needs to keep apt with Dr Suarez!Today 05/26/2024 : Severe SOB and YAN, at this, he was referred to ER, 911 ambulance called and [facility] OV 06/04/2024 :Dr Suarez 06/04/2024 , keep apts with pulmonary Carotid ar angel stenosis 63280993 I65.29 S/p stent in 03/09On ASANot on plavixDr Bette [facility] 02/21/2024 , next in 6 months Restless legs 40883337 G 25.81 Not on requipOn lyrica 75mg in am and [address] Riojas well Ex-cigarette smoker 2810 81664 Z87.891 LDCT 09/21/2022 Get US AAA done as US AAA 04/04/2023 was non diagnostic d/t bowel gas US AAA 09/18/2023 : Neg Coronary arteriosclerosis 00918461 I25.10 CAD noted On losartan 50mg daily Dr Sravan palma done 25mg dailyOn metoprolol ER 50mg dailyDr Bette 02/20/2023 Transient cerebral ischemia 147965852 G45.9 CT Angio: 02/28/2023 : High grade stenosis, R ICA, s/p stent He does see Dr Schumacher his neurologis t, get last OV note S/p hospitaliz ation, does very well now, no residual symptoms at this timeOn ASANot on plavixNot on atorvastat in On rosuvastat in 40mg daily Liver enzy mes level above reference range 407517796 R74.8 ALP 128 03/28/2023 Get labs and US liver Addendum: 12/07/23US liver 12/03/2023 : Hepatic steatosis, triage notified Proteinuria 11093293 R80 .9 US kidney 05/25/2023 : Dr Sravan OTERO Pain of ri ght knee joint 9867783454 47057 M25.561 MRI R knee: 06/07/2023 : Dr Lemon erred to Dr Hernandez Male hypogonadism 033077 06 E29.1 Get labs Serum shane min B12 below reference range 359210715 R79.89 Vitamin D deficiency 347 75254 E55.9 Get labs Melendez's esophagus 3029 93593 K22.70 On omeprazole 05/02/2023 : EGD Tonja eds a follow up with GI EGD 01/04/2024 : 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 Addendum: 04/03/2024 :See case, needs to get another EGD, he was notified Chronic pain 50569231 G8 9.29 Referred to pain management 11/29/2023 ,Advised not to take any NSAIDs d/t CAD and CKD issuesOK to refill his methocarba mol to take as needed in very limited quantities , if he needs more see pain management Abdominal pain 35998879 R10.9 Seen in the ER on 09/19/2023 and 09/24/2023 , still has some LLQ abdominal discomfort , s/p CT A/P 09/19 and 09/24, treated with antibiotic and IVF, upon getting IVF as per ER note he did feel better and he was d/cMetalli c object noted on CT on 09/24, will refer to Dr Fernando and he will see him this 09/27/[address] Fernando 09/27/2023 : Referred to GI, f/u PRN Today 11/29/2023 he continues to have LLQ abd tenderness and some epigastric tenderness Get a repeat CT A/P without today 11/29/2023 Addendum: 12/07/2023 CT A/P 11/29/2023 : Case sent OV 06/04/2024 : Does well now Acute magi rgic reaction 400831902 T78.40XA Seen in ERTreated with steroids, now is doing well Chronic ki dney disease 981787346 N18.9 On calcitriol On chlorthali done 25mg dailyOn losartan 50mg daily Sees Dr Hinson IJ Bilateral hip joint pain 1186540689 3358772 M25.551 M25.552 Marcus ADAMS 01/01/2024 Screening for malignant neoplasm of prostate 026314538 Z12.5 Transition of care 07862 61877 105 Z75.8 Pneumonia 210392948 J18. 9 S/p d/c from [facility] 05/30/2024 Started on Lantus 10U q hsCBC: 05/30/2024 CMP: 05/30/2024 : BUN 33, Gluc 247 [id number] Duncan Suarez MD [facility] [address] 06/04/2024 10:57:31 06/04/2024 13:02:53 Dyspnea on exertion 68755179 R06.09 R05.9 T78.40XA D89.9 Solitary n odule of lung 034160919 R91.1 [id number] Naila albright MD [facility] [address] [place] [address] 07/08/2024 14:04:51 07/08/2024 15:29:26 Screening - NAD 503483288 Z13.9 C-scope: 05/02/2023 , Dr Randolph navarro in one yearC-scop e: 01/04/2024 : Dr Randolph navarro in 2 years Get yearly flu shotUTD on COVID X2, can do boostersUT D on PCVGet tdap if not doneUTD on ShingrixGe t RSV vaccine RTC in 3 months do labs, ER if worse, he did verbalize his understand ing of the above 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 777397923 E11.9 On metformin ER 500mg bidOn Farxiga 10mg daily but was not taking d/t Carson Jardiance 10mg dailyOn lantus 10U at bedtimeGet on novolog 10U tid with meals, he states 07/08/2024 that he does not want any more 'shots' states that he was given a lot of steroids and that has raised his A1C level, will control more diet and repeat the labs Not on olmesartan Get labs Penile candidiasis 06708 8000 B37.49 No more rash noted, he is using his nystatin-t rimacinolo ne cream and states that the rash is cleared up now Hyperlipidemia 90129472 E78.5 On ASAOn atorvastat in 40mg daily Not on rosuvastat in 40mg dailyGet labs Chronic ob structive pulmonary disease 49249737 J44.9 On albuterolO n HHNsOn trelegy Needs to keep apt with Dr Suarez!Today 05/26/2024 : Severe SOB and YAN, at this, he was referred to ER, 911 ambulance called and [facility] OV 06/04/2024 :Dr Suarez 06/04/2024 , keep apts with pulmonary OV 07/08/2024 :On trelegy, renewed 07/08/2024 as he has not had this catarinaOn Manuel s an apt with Dr Suarez on 07/21/[address] Suarez's nurse, he is unable to provide his trelegy or see him, trelegy was sent for him today 07/08/2024 Addendum: Dr Suarez did see himStarted on ipratropiu m and next f/u on 07/08/2024 Carotid ar angel stenosis 36492394 I65.29 S/p stent in 03/09On ASANot on plavixDr Btete [facility] 02/21/2024 , next in 6 months Restless legs 01047335 G 25.81 Not on requipOn lyrica 75mg in am and [address] Riojas well Ex-cigarette smoker 2810 89081 Z87.891 LDCT 09/21/2022 Get US AAA done as US AAA 04/04/2023 was non diagnostic d/t bowel gas US AAA 09/18/2023 : Neg Coronary arteriosclerosis 49214606 I25.10 CAD noted On losartan 50mg daily Dr Sravan palma done 25mg dailyOn metoprolol ER 50mg dailyDr Bette 02/20/2023 Transient cerebral ischemia 461292766 G45.9 CT Angio: 02/28/2023 : High grade stenosis, R ICA, s/p stent He does see Dr Schumacher his neurologis t, get last OV note S/p hospitaliz ation, does very well now, no residual symptoms at this timeOn ASANot on plavixNot on atorvastat in On rosuvastat in 40mg daily Liver enzy mes level above reference range 206420510 R74.8 ALP 128 03/28/2023 Get labs and US liver Addendum: 12/07/23US liver 12/03/2023 : Hepatic steatosis, triage notified Proteinuria 05810013 R80 .9 US kidney 05/25/2023 : Dr Hinson IJ Pain of ri ght knee joint 6471183673 00843 M25.561 MRI R knee: 06/07/2023 : Dr Lemon erred to Dr Hernandez Male hypogonadism 988105 06 E29.1 Get labs Serum shane min B12 below reference range 060876620 R79.89 Vitamin D deficiency 347 40559 E55.9 Get labs Melendez's esophagus 3029 62166 K22.70 On omeprazole 05/02/2023 : EGD BarrettviridianaNe eds a follow up with GI EGD 01/04/2024 : 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 Addendum: 04/03/2024 :See case, needs to get another EGD, he was notified Chronic pain 78998038 G8 9.29 Referred to pain management 11/29/2023 ,Advised not to take any NSAIDs d/t CAD and CKD issuesOK to refill his methocarba mol to take as needed in very limited quantities , if he needs more see pain management Abdominal pain 55628092 R10.9 Seen in the ER on 09/19/2023 and 09/24/2023 , still has some LLQ abdominal discomfort , s/p CT A/P 09/19 and 09/24, treated with antibiotic and IVF, upon getting IVF as per ER note he did feel better and he was d/cMetalli c object noted on CT on 09/24, will refer to Dr Fernando and he will see him this 09/27/[address] Fernando 09/27/2023 : Referred to GI, f/u PRN Today 11/29/2023 he continues to have LLQ abd tenderness and some epigastric tenderness Get a repeat CT A/P without today 11/29/2023 Addendum: 12/07/2023 CT A/P 11/29/2023 : Case sent OV 06/04/2024 : Does well now Acute magi rgic reaction 968292108 T78.40XA Seen in ERTreated with steroids, now is doing well Chronic ki dney disease 714340369 N18.9 On calcitriol On chlorthali done 25mg dailyOn losartan 50mg daily Sees Dr Hinson IJ Bilateral hip joint pain 0397348062 5350798 M25.551 M25.552 Marcus Walker PA 01/01/2024 Pneumonia 189411803 J18. 9 S/p d/c from [facility] 05/30/2024 Started on Lantus 10U q hsCBC: 05/30/2024 CMP: 05/30/2024 : BUN 33, Gluc 745 [id number] Duncan Suarez MD [facility] [address] 07/08/2024 16:41:56 07/09/2024 11:52:16 Solitary nodule of lung 847917547 R91.1 Mild chron ic obstructive pulmonary disease 942939686 J44.9 Posterior rhinorrhea 758 93378 R09.82 [id number] Bailey Hernandez MD [facility] [place] [address] [place] [address] 07/16/2024 10:31:14 07/16/2024 11:32:17 Pain of right knee joint 0263539310 28935 M25.122 [id number] Duncan Suarez MD [facility] [address] [address] 08/27/2024 08:36:07 08/27/2024 16:32:18 Solitary nodule of lung 808813321 R91.1 Mild chron ic obstructive pulmonary disease 907919274 J44.9 Posterior rhinorrhea 758 12641 R09.82 Dysphonia 39522847 R49.9 [id number] Naila albright MD [facility] [address] [facility] [address] [place] [address] 10/07/2024 11:44:35 10/07/2024 12:32:19 Screening - NAD 508628003 Z13.9 C-scope: 05/02/2023 , Dr Randolph navarro in one yearC-scop e: 01/04/2024 : Dr Randolph navarro in 2 years Get yearly flu shotUTD on COVID X2, can do boostersUT D on PCVGet tdap if not doneUTD on ShingrixGe t RSV vaccine RTC in 3 months do labs, ER if worse, he did verbalize his understand ing of the above 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 717714602 E11.9 On metformin ER 500mg bidNot on Farxiga 10mg daily d/t Carson Jardiance 10mg dailyOn lantus 10U at bedtimeGet on novolog 10U tid with meals, he states 07/08/2024 that he does not want any more 'shots' states that he was given a lot of steroids and that has raised his A1C level, will control more diet and repeat the labs Not on olmesartan Get labs Penile candidiasis 41293 8000 B37.49 No more rash noted, he is using his nystatin-t rimacinolo ne cream and states that the rash is cleared up now Hyperlipidemia 12912131 E78.5 On ASAOn atorvastat in 40mg daily Not on rosuvastat in 40mg dailyGet labs Chronic ob structive pulmonary disease 80303543 J44.9 On albuterolO n HHNsOn gil Needs to keep apt with Dr Suarez!Today 05/26/2024 : Severe SOB and YAN, at this, he was referred to ER, 911 ambulance called and [facility] OV 06/04/2024 :Dr Saurez 06/04/2024 , keep apts with pulmonary OV 07/08/2024 :On trelegy, renewed 07/08/2024 as he has not had this refilledOn Manuel kemp an apt with Dr Suarez on 07/21/[address] Suarez's nurse, he is unable to provide his trelegy or see him, tremalathigy was sent for him today 07/08/2024 Addendum: Dr Suarez did see himStarted on ipratropiu m and next f/u on 07/08/2024 OV 10/07/2024 :On albuterolO n anoroOn ipratropiu mOn Brandon Suarez last 08/27/2024 , was to see ENT Carotid ar angel stenosis 79233182 I65.29 S/p stent in 03/09On ASANot on plavixDr Bette [facility] 02/21/2024 , next in 6 months Restless legs 10199855 G 25.81 Not on requipNot on lyrica 75mg in am and [address] Riojas well Ex-cigarette smoker 2810 97928 Z87.891 LDCT 09/21/2022 Get US AAA done as AAA 04/04/2023 was non diagnostic d/t bowel gas US AAA 09/18/2023 : Neg Coronary arteriosclerosis 37160677 I25.10 CAD noted On losartan 50mg daily Dr Sravan OTEROOn chlorthali done 25mg dailyOn metoprolol ER 50mg dailyDr Bette 02/20/2023 Referred 10/07/2024 Transient cerebral ischemia 770924931 G45.9 CT Angio: 02/28/2023 : High grade stenosis, R ICA, s/p stent He does see Dr Schumacher his neurologis t, get last OV note S/p hospitaliz ation, does very well now, no residual symptoms at this timeOn ASANot on plavixNot on atorvastat in On rosuvastat in 40mg daily Liver enzy mes level above reference range 219657076 R74.8 ALP 128 03/28/2023 Get labs and US liver Addendum: 12/07/23US liver 12/03/2023 : Hepatic steatosis, triage notified Proteinuria 18101192 R80 .9 US kidney 05/25/2023 : Dr Sravan OTERO Pain of ri ght knee joint 6646077441 16931 M25.561 MRI R knee: 06/07/2023 : Dr Lemon erred to Dr Hernandez Male hypogonadism 267785 06 E29.1 Get labs Serum shane min B12 below reference range 431344619 R79.89 Vitamin D deficiency 347 10156 E55.9 Get labs Melendez's esophagus 3029 84566 K22.70 On omeprazole 05/02/2023 : EGD Tonja soni a follow up with GI EGD 01/04/2024 : 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 Addendum: 04/03/2024 :See case, needs to get another EGD, he was notified Chronic pain 75811196 G8 9.29 Referred to pain management 11/29/2023 ,Advised not to take any NSAIDs d/t CAD and CKD issuesOK to refill his methocarba mol to take as needed in very limited quantities , if he needs more see pain management Abdominal pain 32275107 R10.9 Seen in the ER on 09/19/2023 and 09/24/2023 , still has some LLQ abdominal discomfort , s/p CT A/P 09/19 and 09/24, treated with antibiotic and IVF, upon getting IVF as per ER note he did feel better and he was d/cMetalli c object noted on CT on 09/24, will refer to Dr Fernando and he will see him this 09/27/[address] Fernando 09/27/2023 : Referred to GI, f/u PRN Today 11/29/2023 he continues to have LLQ abd tenderness and some epigastric tenderness Get a repeat CT A/P without today 11/29/2023 Addendum: 12/07/2023 CT A/P 11/29/2023 : Case sent OV 06/04/2024 : Does well now Acute magi rgic reaction 159575367 T78.40XA Seen in ERTreated with steroids, now is doing well Chronic ki dney disease 925198058 N18.9 On calcitriol On chlorthali done 25mg dailyOn losartan 50mg daily Sees Dr Sravan OTERO Bilateral hip joint pain 3646703270 7769138 M25.551 M25.552 Marcus ADAMS 01/01/2024 Dysphonia 89577635 R49.9 Was referred to ENT on 08/27/[address] Suarez's note Pain of le ft shoulder joint 7173175645 4448611 M25.512 Slipped and fell on ice 10 days ago, unable to lift L shoulder, s/p ER visit at [facility] start on meloxicam and refer to ortho [id number] Bailey Hernandez MD [facility] [address] [place] [address] 10/08/2024 14:23:45 10/08/2024 14:44:35 Pain of left shoulder joint 5183028996 0296244 M25.407 [id number] Yuri Brandon [facility] [place] [address] [facility] [address] [place] [address] 11/20/2024 11:31:28 11/20/2024 12:50:21 Screening - NAD 844945292 Z13.9 C-scope: 05/02/2023 , Dr Dickson next in one yearC-scop e: 01/04/2024 : Dr Randolph navarro in 2 years Get yearly flu shotUTD on COVID X2, can do boostersUT D on PCVGet tdap if not doneUTD on ShingrixGe t RSV vaccine RTC in 3 months do labs, ER if worse, he did verbalize his understand ing of the above 45 minutes spent with the patient in office today, labs provided, medication list reviewed with him, referral to ortho provided 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 092590080 E11.9 On metformin ER 500mg bidNot on Farxiga 10mg daily d/t Carson Jardiance 10mg dailyOn lantus 10U at bedtimeGet on novolog 10U tid with meals, he states 07/08/2024 that he does not want any more 'shots' states that he was given a lot of steroids and that has raised his A1C level, will control more diet and repeat the labs Not on olmesartan Get labs Penile candidiasis 70877 8000 B37.49 On nystatin-t rimacinolo ne cream as needed Hyperlipidemia 28500462 E78.5 On ASAOn atorvastat in 40mg daily Not on rosuvastat in 40mg dailyGet labs Chronic ob structive pulmonary disease 01781568 J44.9 On albuterolO n HHNsOn trelegy Needs to keep apt with Dr Suarez!Today 05/26/2024 : Severe SOB and YAN, at this, he was referred to ER, 911 ambulance called and [facility] OV 06/04/2024 :Dr Suarez 06/04/2024 , keep apts with pulmonary OV 07/08/2024 :On trelegy, renewed 07/08/2024 as he has not had this refilledOn Manuel s an apt with Dr Suarez on 07/21/[address] Suarez's nurse, he is unable to provide his trelegy or see him, trelegy was sent for him today 07/08/2024 Addendum: Dr Suarez did see himStarted on ipratropiu m and next f/u on 07/08/2024 OV 10/07/2024 :On albuterolO n anoroOn ipratropiu mOn treleDc Suarez last 08/27/2024 , was to see ENT OV 11/20/2024 :On albuterolO n anoroOn ipratropiu mOn treleDc Suarez last 08/27/[address] Mcneal last OV 09/30/2024 , next apt on 11/25/2024 Carotid ar angel stenosis 30853837 I65.29 S/p stent in ASANot on plavixDr Bette SL 02/21/2024 , next in 6 monthsDr Bette SL 08/11/2024 , f/u in 6 weeks and was to get US renal artery Restless legs 74175753 G 25.81 Not on requipNot on lyrica 75mg in am and [address] Riojas well Ex-cigarette smoker 2810 48762 Z87.891 LDCT 09/21/2022 Get US AAA done as US AAA 04/04/2023 was non diagnostic d/t bowel gas US AAA 09/18/2023 : Neg Coronary arteriosclerosis 47756840 I25.10 CAD noted On losartan 50mg daily Dr Sravan OTERO, is not taking this as per his historyOn chlorthali done 25mg dailyOn metoprolol ER 50mg daily, refilled 11/20/2024 , was not takingDr Bette 02/20/2023 Referred 10/07/2024 , 11/20/2024 Keep BP Transient cerebral ischemia 163645186 G45.9 CT Angio: 02/28/2023 : High grade stenosis, R ICA, s/p stent He does see Dr Schumacher his neurologis t, get last OV note S/p hospitaliz ation, does very well now, no residual symptoms at this timeOn ASANot on plavixOn atorvastat in renewed 11/20/2024 Not on rosuvastat in 40mg daily Liver enzy mes level above reference range 779484211 R74.8 ALP 128 03/28/2023 Get labs and US liver Addendum: 12/07/23US liver 12/03/2023 : Hepatic steatosis, triage notified Proteinuria 36022251 R80 .9 US kidney 05/25/2023 : Dr Hinson IJ Pain of ri ght knee joint 0390925335 43412 M25.561 MRI R knee: 06/07/2023 : Dr Wilkins Male hypogonadism 025127 06 E29.1 Get labs Serum shane min B12 below reference range 615312868 R79.89 Vitamin D deficiency 347 19773 E55.9 Get labs Melendez's esophagus 3029 53128 K22.70 On omeprazole 05/02/2023 : EGD BarrettsNe eds a follow up with GI EGD 01/04/2024 : 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 Addendum: 04/03/2024 :See case, needs to get another EGD, he was notified Chronic pain 31786336 G8 9.29 Referred to pain management 11/29/2023 ,Advised not to take any NSAIDs d/t CAD and CKD issuesOK to refill his methocarba mol to take as needed in very limited quantities , if he needs more see pain management Abdominal pain 96753304 R10.9 Seen in the ER on 09/19/2023 and 09/24/2023 , still has some LLQ abdominal discomfort , s/p CT A/P 09/19 and 09/24, treated with antibiotic and IVF, upon getting IVF as per ER note he did feel better and he was d/cMetalli c object noted on CT on 09/24, will refer to Dr Fernando and he will see him this 09/27/[address] Fernando 09/27/2023 : Referred to GI, f/u PRN Today 11/29/2023 he continues to have LLQ abd tenderness and some epigastric tenderness Get a repeat CT A/P without today 11/29/2023 Addendum: 12/07/2023 CT A/P 11/29/2023 : Case sent OV 06/04/2024 : Does well now Acute magi rgic reaction [id number] T78.40XA Seen in ERTreated with steroids, now is doing well Chronic ki dney disease 720027748 N18.9 On calcitriol On chlorthali done 25mg dailyOn losartan 50mg daily Sees Dr Sravan OTERO Bilateral hip joint pain [id number] M25.551 M25.552 Marcus ADAMS 01/01/2024 Dysphonia [id number] R49.9 Was referred to ENT on 08/27/[address] Suarez's note Pain of le ft shoulder joint [id number] M25.512 Slipped and fell on ice 10 days ago, unable to lift L shoulder, [facility] OV 11/20/2024 :Advised to not take NSAIDs d/t his BPGet an apt with Dr Wilkins now as he does not want to see Dr Hernandez [id number] Jaycee Chaparro PA-C [facility] [address] [place] [address] 12/03/2024 14:47:58 12/03/2024 16:19:34 Pain of left shoulder joint [id number] M25.512 Health Concerns Section Related Observation LastModified by Organization Detai ls LastModified Time None Recorded Concern Status LastModified by Organization Details LastModified Time None Recorded Advance Directives Directive Y: Patient stated he needs t o update since . 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 Payers Encounter Date Sequence Insurance Name Policy Number Policy Santana Covered Member ID Santana Member ID Guarantor Name 08/27/2024 1 [employer] - [employer] - MEDICARE COMPLETE - CHOICE PLAN 2 (MEDICARE REPLACEMENT REGIONAL PPO) [id number] Navid Rodríguez [id number] Navid Rodríguez 10/07/2024 1 [employer] - [employer] - MEDICARE COMPLETE - CHOICE PLAN 2 (MEDICARE REPLACEMENT REGIONAL PPO) [id number] Navid Rodríguez [id number] Navid Rodríguez 10/08/2024 1 [employer] - [employer] - MEDICARE COMPLETE - CHOICE PLAN 2 (MEDICARE REPLACEMENT REGIONAL PPO) [id number] Navid Rodríguez [id number] Navid Rodríguez 12/03/2024 1 [employer] - [employer] - MEDICARE COMPLETE - CHOICE PLAN 2 (MEDICARE REPLACEMENT REGIONAL PPO) [id number] Navid Rodríguez [id number] Navid Rodrgíuez Notes Date Note Type Note Provider Name and Address Organization Details Recorded Time 08/27/2024 text/html Primary care/Referring provider: Naila Moreno MD CC: I have hoarseness of voice and I could not sing in the retirement. Patient is here to go over his mild COPD management. Initial development of shortness of breath: 2011Duration of shortness of breath: 13 yearsCondition of shortness of breath: stableTiming of shortness of breath: morningFrequency: up to 3 times a dayLimits activities: yesAggravating factors: walking, doing yard workAlleviating factors: rest Modified [employer] ([employer]) Dyspnea Scale - Grade 1Grade 0 I only get breathless with strenuous exercise .Grade 1 I get short of breath when hurrying on the level or walking up a slight hill .Grade 2 I walk slower than people of the same age on the level because of breathlessness or have to stop for breath when walking at my own pace on the level .Grade 3 I stop for breath after walking about 100 yards or after a few minutes on the level .Grade 4 I am too breathless to leave the house or I am breathless when dressing . Treatment history: Albuterol nebs as needed since lbuterol HFA as needed since 2Duoneb since 2016 Spiriva Handihaler once daily 3645-2758 Symbicort HFA 160/4.5 mcg 2 puffs BID 2015-dvair 250/50 mcg 1 inhalation BID 2021 onlyTrelegy Ellipta 200/62.5/25 mcg 1 inhalation daily 09/2022 -> 06/2024Trelegy Ellipta 100/62.5/25 mcg 1 inhalation daily since 06/2024 Other symptoms:Drooling: yesDysarthria: noNeck pain: noOdynophagia: noDysphagia: noWeak mastication: noFacial weakness: noNasal speech: noProtruding tongue: noProductive cough: yes, greenish phlegmWheezing: yesChest tightness: yesOrthopnea: noFrequent throat clearing or swallowing: yesPalpitations: noHeartburn: yesEdema: no Environmental exposures:Nicotine smoke: 1 ppd 6080-4443 (quit 12 years in between) = 41 pack yearsPaint: noDye: noDust mites: yesMold: noDamp basement: noWood burning stove: noAnimal dander: dog and catCockroaches: noPollen: yesArsenic: noAsbestos: noBeryllium: noCadmium: noChromium: noCoal smoke: noDiesel fumes: noNickel: noSilica: noSoot: no EPWORTH SLEEPINESS SCALE (ESS) CHANCE OF DOZING SCORE0 = would never doze1 = slight chance of dozing2 = moderate chance of dozing3 = high chance of dozing SITUATION AND CHANCE OF DOZINGSitting and reading - 2Watching television - 2Sitting inactive in a public place (e.g. a theater or meeting) - 2As a passenger in a car for an hour without a break - 2Lying down to rest in the afternoon when circumstances permit - 2Sitting and talking to someone - 0Sitting quietly after lunch without alcohol - 2In a car, while stopped for a few minutes in the traffic - 0TOTAL SCORE 12Subjectively, patient has a moderate chance of dozing. Duncan Suarez MD [address] [place] [address], [facility] [address], [place], [address], [place] [facility] 08/27/2024 09:34:58 10/07/2024 text/html OV 03/28/2023: H ere to establish carePast Hx:HLDCOPDDMIITIARevi ewed social family and surgical historyHere to discuss above, admitted to [facility] on 02/28/2023 for TIA with L arm weakness, now does well, he does see Dr Schumacher neurologist too OV 05/16/2023: Here for his f/u apt, he is doing well, did do the labs OV 08/30/2023: Here for his routine apt, no new labs noted, he would like a referral to pain management, states that he has chronic low level pain and would like to see if he can get on any medications, hx of TIA OV 09/25/2023: ACV:S/p ER visit for UTI, seen in the ER at [facility] 09/24/2023, treated with antibiotic and also did have a CT A/P, he states that his abd pain is improved but he does note a nagging pain in the LLQ, no blood in the urine or stool, normal appetite, no N/V or diarrhea or constipation, no fevers or chills OV 11/29/2023: Here for his f/u apt, he feels well today, but still has the LLQ nagging abdominal discomfort, states that he did see Dr Fernando and Dr Dickson and did have another C-scope and was told that the C-scope was normal, report not in the chartNo N/V or diarrhea or constipation, no blood in urine or stool, states that his apetite is very good, he does 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 but has stopped this OV 12/10/2023: Seen in the ER for a rash on his penis and was also noted to have an elevated glucose, his A1C on 11/29/2023 was 9.3 and will now to discuss his A1CHe is also here to discuss his labs, he readily admits that he has not been compliant with his metformin and is not taking the Farxiga, he also states that he has not kept his apts with cardiology OV 04/03/2024: Here for his f/u apt and his MWV, he does want to get a refill on his muscle relaxer and naprosyn OV 05/26/2024: Here post hosp, d/c from [facility] 05/14/2024 for SOB, today very SOB and has ongoing cough, he is extremely fatigued, c/o wheezing also, states that he is worse since his d/c from [facility] on 05/14/2024 OV 06/04/2024: Here for his post hosp apt, now feels much better, his SOB is resolved, no fever or chills, feels his fatigue is better also, states that he is 'fit as a fiddle' OV 07/08/2024: Here for his f/u apt, he did do the labs on 07/07/2024, today he still fells that his SOB is not completely resolved, he was to see Dr Daniela hernandez OV 10/07/2024: Here for his routine apt, he is doing well today, he did see Dr Daniela Moreno MD [address] [place] [address], [address], [place], [address], [place] [facility] 10/10/2024 11:49:03
--- OUTSIDE RECORDS SUMMARY | 2024-12-21 10:40 | XMS_ITS ---
Author Organization [facility] Address [address] [place] [address] Care Team Providers Care Wireless Technician Name Role Phone Sravan Owen Angie [phone] MEDICATIONS Medication SIG (Take, Route, Fr equency, Duration) Notes Start Date End Date Status Calcitriol 0.25 MCG 1 capsule Orally Onc e a day for 90 day(s) 08/01/2024 04/28/2025 Active SOCIAL HISTORY Sex Assigned At : Social History Observation Description Sex Assigned At Male Encounters Encounter Location Date Provider Diagnosis [facility] [facility] [address] [place] [address] 08/01/2024 Owen Hinson PLAN OF TREATMENT Medication Medication Name Sig Start Date Stop Date Notes Calcitriol 0.25 MCG 1 capsule Orally Onc e a day for 90 day(s) 08/01/2024 04/28/2025 Progress Notes * MAJOADOLFO CRISSDOB: [birth year] (74 yo M)Acc No.[id number]:08/01/2024 Patient: CRISS CALERO :1950 Age:74 Y Sex:Male Address:[address] [place] [address] * Refills Start Calcitriol Capsule, 0.25 MCG, Orally, 90 Capsule, 1 capsule, Once a day, 90 day(s), Refills=2 * true * Date:
--- OUTSIDE RECORDS SUMMARY | 2024-12-21 10:40 | XMS_ITS | Clinical Summary ---
Author Organization [facility] Facility Address [address] [facility] [address] [address] Care Team Providers Care Blacktop Spreader Name Role Phone Naila Moreno MD Primary Care Provider [phone] Social History Tobacco Use Types Packs/Day Years [...] Pneumococcal Vaccine: 65+ Ye ars (1 of - PCV) 2017 Influenza Vaccine (Season Ended) 2025 Hepatitis B Vaccine Aged Out No longe r eligible based on patient's age to complete this topic Insurance [facility] MEDICARE Care Teams Blacktop Spreader Relationship Specialty Start Date End Date Naila Moreno MD [address], [address] [place] [address] PCP - General Internal Medicine 11/30/23
--- OUTSIDE RECORDS SUMMARY | 2024-12-21 10:41 | XMS_ITS | Patient Health Record ---
Author Organization [facility] Address [id number] [place] [address] Care Team Providers Care K [employer] School Principal Name Role Phone HinsonHemalathaOwen Unavailable [phone] REASON FOR REFERRAL No Information MEDICATIONS Medication SIG (Take, Route, Frequency, Duration) Notes Start Date End Date Status Calcitriol 0.25 MCG 1 capsule Orally Onc e a day for 90 day(s) 08/01/2024 04/28/2025 Active Losartan Potassium 50 MG 1 tablet Orally Once a day for 90 05/30/2023 Active SOCIAL HISTORY Sex Assigned At : Social History Observation Description Sex Assigned At Male PROBLEMS Problem Type ICD Code Onset Dates Problem Status W/U Status Risk SNOMED Code Notes Problem Type 2 diabetes mellitus with hyperglycemia (E11.65) Active confirmed Hyperglycemia due to type 2 diabetes mellitus (168159442160108 ) Problem Chronic obstructive pulmonary disease with (acute) exacerbation (J44.1) Active confirmed Acute exacerbation of chronic obstructive airways disease (855975848) Problem Chronic kidney disease, stage 2 (mild) (N18.2) Active confirmed Chronic kidne y disease stage 2 (263242438) Problem Other proteinuria (R80.8) Active confirmed Proteinuria (11966387) Problem Essential hypertension (I10) Active confirmed Essential hypertension (20302403) Encounters Encounter Location Date Provider Diagnosis [place] [facility] [address] [address] 01/23/2024 Owen Hinson Chronic kidney disease, stage 2 (mild) N18.2 ; Other proteinuria R80.8 ; Type 2 diabetes mellitus with hyperglycemia E11.65 ; Chronic obstructive pulmonary disease with (acute) exacerbation J44.1 and Essential hypertension I10 [place] [facility] [address] [facility] [address] [place] [address] 08/01/2024 Owen Hinson Chronic kidney disease, stage 2 (mild) N18.2 ; Other proteinuria R80.8 ; Type 2 diabetes mellitus with hyperglycemia E11.65 ; Chronic obstructive pulmonary disease with (acute) exacerbation J44.1 and Essential hypertension I10 [place] [facility] [address] [facility] [address] [place] [address] 08/01/2024 Owen Hinson ASSESSMENTS Encounter Date Diagnosis Assessment Notes Treatment Notes Treatment Clinical Notes Section Notes 01/23/2024 Chronic kidney disease, stage 2 (mild) (ICD-10 - N18.2) 08/01/2024 Chronic kidney disease, stage 2 (mild) (ICD-10 - N18.2) 08/01/2024 Other proteinuria (ICD-10 - R80.8) 01/23/2024 Other proteinuria (ICD-10 - R80.8) 01/23/2024 Type 2 diabetes mellitus with hyperglycemia (ICD-10 - E11.65) 08/01/2024 Type 2 diabetes mellitus with hyperglycemia (ICD-10 - E11.65) 08/01/2024 Chronic obstructive pulmonary disease with (acute) exacerbation (ICD-10 - J44.1) 01/23/2024 Chronic obstructive pulmonary disease with (acute) exacerbation (ICD-10 - J44.1) 01/23/2024 Essential hypertension (ICD-10 - I10) 08/01/2024 Essential hypertension (ICD-10 - I10) PLAN OF TREATMENT No Information
--- OUTSIDE RECORDS SUMMARY | 2024-12-21 10:41 | XMS_ITS | Clinical Summary ---
Author Organization [facility] Address [address] [place] [address] Care Team Providers Care Mechanical Detailer Name Role Phone Unavailable Primary Care Provider Unavailabl e Source Comments [facility],non-owned Affiliates and Associated Physician Practices is amultiple site organization consisting of ambulatory clinics and hospital sitesin [place], [place], [place] and [place]. This disclosure is being madepursuant to the Care Everywhere program and may not contain all information available regarding this patient. Last updated 18.[facility] Allergies No known active allergies Medications * Be aware that medications may not be up to date on this document. Alwaysverify current medications with the patient. Medication Sig Dispensed Refills Start Date End Date Status rOPINIRole (Requip) 0.5 MG tabletIndications:Re stless Leg Syndrome Take 1 (one) tablet by mouth at bedtime Reasons: Restless Leg Syndrome Active albuterol (Proventil; Ventolin) 2 MG/5ML syrupIndications:SHUT OFF WORKER D Take 6.25 mL by mouth 3 [...] Date Recorded PHQ2 TOTAL SCORE 0 03/07/2023 [facility] - Occupational [...] place to sleep or slept in a fdc (including now)? No 03/03/2023 Sex and Gender [...] this topic Medical Devices Implanted Type Area Administrative Coordinator Device Identifier Shelf Expiration Date Model / Serial / Lot Stent Enroute Uber Flx 7mm .065in 40mm Implanted:Qty : 1 on 03/05/2023 by Betty Crane DO at [facility] Stent - Vascular Right: Arterial [employer] [facility] 04/16/2025 [id number] / / [id number] Description:IMPLANTED RIGHT CAROTID ARTERY Advance Directives * Full Code (Latest Code Status on File) Date Activated Date Inactivated Comments 03/03/2023 5:15 AM 03/08/2023 8:02 PM
--- OUTSIDE RECORDS SUMMARY | 2024-12-21 10:41 | XMS_ITS ---
Author Organization [facility] Address [address] [place] [address] Care Team Providers Care Senior Research Fellow Name Role Phone SravanHemalathaOwen Unavailable [phone] MEDICATIONS Medication SIG (Take, Route, Frequency, Duration) Notes Start Date End Date Status Calcitriol 0.25 MCG 1 capsule Orally corrine ry other day for 90 05/30/2023 02/24/2024 Active Losartan Potassium 50 MG 1 tablet Orally Once a day for 90 05/30/2023 Active Ergocalciferol 1.25 MG (35368 UT) 1 capsule Orally Once a week for 90 day(s) 08/29/2023 05/25/2024 Active SOCIAL HISTORY Sex Assigned At : Social History Observation Description Sex Assigned At Male Encounters Encounter Location Date Provider Diagnosis [place] [facility] [address] [facility] [address] [place] [address] 01/23/2024 Owen Hinson Chronic kidney disease, stage 2 (mild) N18.2 ; Other proteinuria R80.8 ; Type 2 diabetes mellitus with hyperglycemia E11.65 ; Chronic obstructive pulmonary disease with (acute) exacerbation J44.1 and Essential hypertension I10 ASSESSMENTS Encounter Date Diagnosis Assessment Notes Treatment Notes Treatment Clinical Notes Section Notes 01/23/2024 Chronic kidney disease, stage 2 (mild) (ICD-10 - N18.2) 01/23/2024 Other proteinuria (ICD-10 - R80.8) 01/23/2024 Type 2 diabetes mellitus with hyperglycemia (ICD-10 - E11.65) 01/23/2024 Chronic obstructive pulmonary disease with (acute) exacerbation (ICD-10 - J44.1) 01/23/2024 Essential hypertension (ICD-10 - I10) PLAN OF TREATMENT No Information Progress Notes * CRISS CALERODOB: [birth year] (74 yo M)Acc No.[id number]:01/23/2024 Progress Notes Patient: CRISS CALERO Provider: MD JOSÉ MIGUEL, Fabian, F.A.S.N. :1950 Age:73 Y Sex:Male Date:01/23/2024 Address:[address] [place] [address] Subjective: * Chief Complaints: * * Medical History: * Medications: Taking Losartan Potassium 50 MG Tablet 1 tablet Orally Once a day , Taking Calcitriol 0.25 MCG Capsule 1 capsule Orally every other day , stop date 02/24/2024, Taking Ergocalciferol 1.25 MG (65522 UT) Capsule 1 capsule Orally Once a week , stop date 05/25/2024 Objective: Assessment: * Assessment: 1. Chronic kidney disease, stage 2 (mild) - N18.2 2. Other proteinuria - R80.8 3. Type 2 diabetes mellitus with hyperglycemia - E11.65 4. Chronic obstructive pulmonary disease with (acute) exacerbation - J44.1 5. Essential hypertension - I10 Plan: * Treatment: * Billing Information: * Visit Code: 02205 Office Visit, Est Pt., Level 4. * Procedure Codes: * Sign off status: Pending * Provider: MD JOSÉ MIGUEL, Fabian, F.A.S.N. Date: 01/23/2024
--- OUTSIDE RECORDS SUMMARY | 2024-12-21 10:41 | XMS_ITS ---
Author Organization [facility] Address [address] [address] [place] [address] Care Team Providers Care Travel Registered Nurse Pacu Name Role Phone HinsonHemalathaOwen Unavailable [phone] MEDICATIONS Medication SIG (Take, Route, Frequency, Duration) Notes Start Date End Date Status Losartan Potassium 50 MG 1 tablet Orally Once a day for 90 05/30/2023 Active SOCIAL HISTORY Sex Assigned At : Social History Observation Description Sex Assigned At Male Encounters Encounter Location Date Provider Diagnosis [place] [facility] [address] [facility] [address] [place] [address] 08/01/2024 Owen Hinson Chronic kidney disease, stage [...] J44.1) 08/01/2024 Essential hypertension (ICD-10 - I10) PLAN OF TREATMENT No Information Progress Notes * CRISS CALERODOB: [birth year] (74 yo M)Acc No.[id number]:08/01/2024 Progress Notes Patient: CRISS CALERO Provider: MD JOSÉ MIGUEL, F.A.C.P, F.A.S.N. :1950 Age:74 Y Sex:Male Date:08/01/2024 Address:[address] [place] [address] Subjective: * Chief Complaints: * * Medical History: * Medications: Taking Losartan Potassium 50 MG Tablet 1 tablet Orally Once a day Objective: Assessment: * Assessment: 1. Chronic kidney disease, stage 2 (mild) - N18.2 (Primary) 2. Other proteinuria - R80.8 3. Type 2 diabetes mellitus with hyperglycemia - E11.65 4. Chronic obstructive pulmonary disease with (acute) exacerbation - J44.1 5. Essential hypertension - I10 Plan: * Treatment: * Billing Information: * Visit Code: 50164 Office Visit, Est Pt., Level 4. * Procedure Codes: * Sign off status: Pending * Provider: MD JOSÉ MIGUEL, F.A.C.P, F.A.S.N. Date: 08/01/2024
== END 2024-12-21 10:37 | disposition home or self-care (01) ==
PROVIDERS: PCP Internal Medicine; Visit Provider Physician Assistant Surgical
DX: S46.812A Strain of other muscles, fascia and tendons at shoulder and upper arm level, left arm, initial encounter (principal); M19.012 Primary osteoarthritis, left shoulder
CPT/HCPCS: 73221

== ENCOUNTER 2025-01-09 16:24 | Outpatient (CLI) | payer MEDICARE, SELFPAY ==
--- OUTSIDE RECORDS SUMMARY | 2025-01-09 16:26 | XMS_ITS | Clinical Summary ---
Author Organization [facility] Facility Address [address] [facility] [address] [address] Care Team Providers Care Sewing Machine Operator Floorperson Name Role Phone Naila Moreno MD Primary Care Provider [phone] Social History Tobacco Use Types Packs/Day Years [...] Colorectal Cancer Screening: Sigmoidoscopy 2001 Pneumococcal Vaccine: 50+ Ye ars (1 of - PCV) 2002 Influenza Vaccine (Season Ended) 2025 Hepatitis B Vaccine Aged Out No longe r eligible based on patient's age to complete this topic Insurance [facility] Medicare Care Teams Sewing Machine Operator Floorperson Relationship Specialty Start Date End Date Naila Moreno MD [address] [place] [address] PCP - General Internal Medicine 11/30/23
--- OUTSIDE RECORDS SUMMARY | 2025-01-09 16:27 | XMS_ITS ---
Author Organization [facility] Address [address] [place] [address] Care Team Providers Care Long Chain Quiller Tender Name Role Phone SravanHemalathaOwen Unavailable [phone] MEDICATIONS Medication SIG (Take, Route, Frequency, Duration) Notes Start Date End Date Status Calcitriol 0.25 MCG 1 capsule Orally corrine ry other day for 90 05/30/2023 02/24/2024 Active Losartan Potassium 50 MG 1 tablet Orally Once a day for 90 05/30/2023 Active Ergocalciferol 1.25 MG (78254 UT) 1 capsule Orally Once a week for 90 day(s) 08/29/2023 05/25/2024 Active SOCIAL HISTORY Sex Assigned At : Social History Observation Description Sex Assigned At Male Encounters Encounter Location Date Provider Diagnosis [place] [facility] [address] [facility] [address] [place] [address] 01/23/2024 Owen Hinson Chronic kidney disease, stage [...] * CRISS CALERODOB: [birth year] (74 yo M)Acc No.[id number]:01/23/2024 Progress Notes Patient: CRISS CALERO Provider: MD JOSÉ MIGUEL, Fabian, F.A.S.N. :1950 Age:73 Y Sex:Male Date:01/23/2024 Address:[address] [place] [address] Subjective: * Chief Complaints: * * Medical History: * Medications: Taking Losartan Potassium 50 MG Tablet 1 tablet Orally Once a day , Taking Calcitriol 0.25 MCG Capsule 1 capsule Orally every other day , stop date 02/24/2024, Taking Ergocalciferol 1.25 MG (96067 UT) Capsule 1 capsule Orally Once a week , stop date 05/25/2024 Objective: Assessment: * Assessment: 1. Chronic kidney disease, stage 2 (mild) - N18.2 2. Other proteinuria - R80.8 3. Type 2 diabetes mellitus with hyperglycemia - E11.65 4. Chronic obstructive pulmonary disease with (acute) exacerbation - J44.1 5. Essential hypertension - I10 Plan: * Treatment: * Billing Information: * Visit Code: 28526 Office Visit, Est Pt., Level 4. * Procedure Codes: * Sign off status: Pending * Provider: MD JOSÉ MIGUEL, Fabian, F.A.S.N. Date: 01/23/2024
--- OUTSIDE RECORDS SUMMARY | 2025-01-09 16:27 | XMS_ITS | CONTINUITY OF CARE DOCUMENT ---
Author Name cruz kitoctavio Address Unknown Organization [facility] Address [address] [place] [address] Phone [phone] Care Team Providers Care Grain Broker And Market Operator Name Role Phone Derrick Amos MD Unavailable CAITLIN RAMÍREZ MD Unavailable CAITLIN RAMÍREZ MD Unavailable [phone] PROBLEMS Condition Status Date Provider Notes Preop [...] Diag nosis - In-person encounter Office Visit Steven Shaw NP [facility] - In-person encounter Office Visit Derrick Amos MD [facility] - In-person encounter Office Visit Derrick mAos MD [facility] Cardiology examination - In-person encounter Office Visit Derrick Amos MD [facility] TOBACCO ABUSE-QUIT - In-person encounter Office Visit Derrick Amos MD [facility] - In-person encounter Office Visit Derrick Amos MD [facility] - In-person encounter Office Visit Derrick Amos MD [facility] - In-person encounter Office Visit Derrick Amos MD [facility] CVA - In-person encounter Office Visit Derrick Amos MD [facility] - In-person encounter Office Visit Marshal Milner MD [facility] Preop examHypertensionDyslipidemiaDiabetes mellitusCOPDShortness of breathTOBACCO ABUSE-QUITArrhythmia VITAL SIGNS Date Observation Value Provider Body Mass Index (Ratio) 22.31 kg/m2 Arnie Shaw NP blood pressure, diastolic 101 mm[Hg] emerald Lim blood pressure, systolic 179 mm[Hg] Danna laura Lim oxygen saturation, oximetry 95 % [facility] 71 /min [facility] respiratory rate E&M 12 /min [facility] weight E&M 130 [lb_av] [facility] height E&M 64 [in_i] [facility] blood pressure, cuff size regular An emerald Lim Body Mass Index (Ratio) 23.17 kg/m2 Portia Amos MD blood pressure, diastolic 90 mm[Hg] Joe Ibanez blood pressure, systolic 166 mm[Hg] Kulwinder Ibanez pulse rate 78 /min Zaida kemp oxygen saturation, oximetry 97 % Zaida Ibanez weight E&M 135 [lb_av] Zaida Lee s blood pressure, cuff size regular Joe Ibanez height E&M 64 [in_i] Zaida Lee s Body Mass Index (Ratio) 24.65 kg/m2 Portia Amos MD blood pressure, diastolic 93 mm[Hg] Km ryan Aleman blood pressure, systolic 165 mm[Hg] Naina morrison Aleman oxygen saturation, oximetry 94 % [facility] pulse rate 87 /min Kmaron Aleman weight E&M 143.6 [lb_av] Kmaron Aleman height E&M 64 [in_i] Kmaron Aleman blood pressure, cuff size regular Km davis Aleman Body Mass Index (Ratio) 24.03 kg/m2 [...] Amos MD blood pressure, cuff size regular [facility] blood pressure, diastolic 93 mm[Hg] Ja rr blood pressure, systolic 169 mm[Hg] Jar ret pulse rate 63 /min Lucas oxygen saturation, oximetry 96 % respiratory rate E&M 16 /min Lucas weight E&M 137 [lb_av] Lucas height E&M 64 [in_i] Lucas Body Mass Index (Ratio) 23.34 kg/m2 Ricky Albright blood pressure, cuff size regular [facility] blood pressure, diastolic 95 mm[Hg] Ja blood pressure, systolic 176 mm[Hg] [facility] pulse rate 58 /min Lucas respiratory rate E&M 16 /min Lucas oxygen saturation, oximetry 98 % weight E&M 136 [lb_av] Lucas height E&M 64 [in_i] Lucas y Body Mass Index (Ratio) 23.51 kg/m2 Portia Amos MD blood pressure, diastolic 90 mm[Hg] Barbie Karimi blood pressure, systolic 155 mm[Hg] She roberta Karimi pulse rate 61 /min Jazzy Karimi respiratory rate E&M 20 /min Jazzy Karimi oxygen saturation, oximetry 96 % Jazzy Karimi weight E&M 137 [lb_av] Jazzy Karimi blood pressure, cuff size regular moe Karimi height E&M 64 [in_i] Jazzy Karimi Body Mass Index (Ratio) 23.51 kg/m2 Portia Amos MD blood pressure, diastolic 100 mm[Hg] Aide nkLogic blood pressure, systolic 176 mm[Hg] Raquel kLogic pulse rate 78 /min Lucas y blood pressure, cuff size regular Ja rret blood pressure, diastolic 100 mm[Hg] Ja et blood pressure, systolic 176 mm[Hg] Jar ret oxygen saturation, oximetry 94 % Lucas respiratory rate E&M 12 /min Lucas weight E&M 137 [lb_av] Lucas y height E&M 64 [in_i] Lucas y Body Mass Index (Ratio) 24.54 kg/m2 David Quarles blood pressure, diastolic, left arm 80 mm [Hg] blood pressure, systolic, left arm 130 mm [Hg] blood pressure, diastolic, right arm 80 m m[Hg] Catrina blood pressure, systolic, right arm 130 m m[Hg] blood pressure, diastolic 80 mm[Hg] Ki blood pressure, systolic 130 mm[Hg] Yane cuevas Brody oxygen saturation, oximetry 97 % respiratory rate E&M 16 /min pulse rate 64 /min [facility] E&M 143 [lb_av] height E&M 64 [in_i] blood pressure, resting Yes Kill n Brody ALLERGIES No Known Drug Allergies HISTORY OF MEDICATION USE Medication Status Instructions Dates Provider Indications [facility] mentviridiana chlorthalidone 25 mg tablet active TAKE 1 TABLET BY MOUTH DAILY Setven Shaw NP celecoxib 200 mg capsule active Zaida Shamar naproxen 500 mg tablet active Derrick Amos MD methocarbamol 750 mg tablet active Derrick Amos MD calcitriol 0.25 mcg capsule active Derrick Amos MD losartan 50 mg tablet active Take 1 tablet by mouth twice a day Derrick Amos MD chlorthalidone 25 mg tablet completed Take 1 tablet by mouth once a day - Steven Shaw NP atorvastatin 40 mg tablet active TAKE 1 TABLET BY MOUTH EVERYDAY AT BEDTIME Derrick Amos MD Jardiance 10 mg tablet completed - tSeven Shaw NP metformin (Glucophage XR) 500 mg tablet extended release 24 hr active TAKE 1 TABLET BY MOUTH TWICE A DAY Steven Shaw NP omeprazole 40 mg capsule,delayed release(DR/EC) active Derrick [...] 01/28/2019 SOCIAL HISTORY Date Observation Value Provider smoking/tobacco cess ation, patient education and counseling yes Steven Shaw NP smoking status Former smoker Steven davis NP social history reviewed E&M revi ewed - no changes required Steven Shaw NP smoking, year quit 6 months Derrick haney [...] 1/2 Derrick Amos MD cigarette use yes eDrrick Cardenas smoking status Former smoker Derrick Amos [...] MD social history E&M S moking History: P sarahi is a former smoker. Derrick Amos MD [...] Cardenas smoking status Current every day smoker Dillon Amos MD social history reviewed E&M revi ewed - no changes required Derrick Amos MD social history reviewed E&M revi ewed - no changes required Marshal Milner MD social history E&M Smoking Histo ry: P atmichael currently smokes every day. P atmichael has been counseled to quit. Marshal Milner MD smoking/tobacco cess ation, patient education and counseling yes Marshal Milner MD number of years as a smoker 45+ Catrina Ronn smoking history, tot al pack/day currently 1/2 Angel Quarles cigarette use yes Catrina Ronn number of grandchildren Marshal Milner MD Mi justice Ronn smoking status Current every day smoker K ashleigh Brody FAMILY HISTORY Family Member Condition Father Family History of Co ngestive Heart Failure: Father Family History of Hy pertension: Full Sister Family History of Ao rtic Aneurysm: Maternal Grandmother Family History of C VA or Stroke: Mother Family History of Co ngestive Heart Failure: Mother Family History of Hy pertension: INSURANCE PROVIDERS Payer name Policy type / Coverage type [place] [employer] ID AARP MEDICARE ADVANTAGE ([facility]) Other [id number] ADVANCE DIRECTIVES Name Date DISCUSSED - NO DECISION MADE TREATMENT PLAN Date Name Performer [id number],C,Per pcp Derrick Amos MD [id number],C,S tent to carotid. he should be on astatin but I am not sure. Derrick Amos MD [id number],C,N ot sure what he is on but he will see his PCP for a list of current meds B P today: 155/90 P rior BP: 176/100 (04/12/2023) Derrick Amos MD [id number],C,l ow risk for colonoscopy. BP is not well controlled, will have him come back in a week for BP check Derrick Amos MD [id number],C,n ot well controlled W ill add olmesartan [...] mouth once a day Derrick Amos MD Cardiology:Continue high-intensi ty Atorvastatin. Steven Shaw NP Cardiology:Blood pre ssure is elevated (no symptoms). He likely did not fill the Chlorthalidone that was prescribed for him last visit. I have resent the prescription for Chlorthalidone 25mg qday. I will continue Lopressor and Losartan without change. He does have a home blood pressure monitor, and I have encouraged him to monitor his home pressures and report if SBP are routinely >140 mmHg. Steven Shaw NP Cardiology:The patie nt is planning on having shoulder surgery. He is able to complete >4 METS without angina. Barring any significant abnormalities on his echocardiogram that Dr. Amos will read later today, he will likely be low risk and can proceed to surgery. He will need to continue his B-fermin and statin throughout the perioperative period. Formal clearance to be provided after her echo is read. Steven Shaw NP Cardiology:May under go his surgery pending final reading of his echo by Dr Amos, He is asymtpotmatic D iscussed importance of BP management, reinforced medication compliance, will resume chlorthalidone as he states that he nev Steven Shaw NP Cardiology:No focal neurological deficits Steven Shaw NP Cardiology:on metformin Derrick kramer MD Cardiology:on a [...] MD Cardiology:increase arb to twice daily c heck echo and renal artery duplex His updated [...] (01/07/2024) Derrick Amos MD Cardiology: Q uit Drerick Amos MD Cardiology:He states he has Hx [...] undergo diagnosis and treatment. Angel Quarles Cardiology:His updat ed medication list for this problem includes: Lisinopril 40 Mg Oral Tablet (Lisinopril) ..... Take 1 tab onc daily Metformin Hcl 1000 Mg Oral Tablet (Metformin hcl) ..... Take 1 tab twice daily Angel Qurales Cardiology:His updat ed medication list for this problem includes: [...] proceed to surgery at this time. Angel Avitiaberg Cardiology:Pt is a c andidate for hip surgery. Denies hx of MT or chest pain. He reports many years [...]
--- OUTSIDE RECORDS SUMMARY | 2025-01-09 16:27 | XMS_ITS ---
Author Organization [facility] Address [address] [place] [address] Care Team Providers Care Laser Printing Operator Name Role Phone Sravan Owen Angie [phone] MEDICATIONS Medication SIG (Take, Route, Fr equency, Duration) Notes Start Date End Date Status Calcitriol 0.25 MCG 1 capsule Orally Onc e a day for 90 day(s) 08/01/2024 04/28/2025 Active SOCIAL HISTORY Sex Assigned At : Social History Observation Description Sex Assigned At Male Encounters Encounter Location Date Provider Diagnosis [facility] [address] [place] [address] 08/01/2024 Owen Hinson PLAN OF TREATMENT Medication Medication Name Sig Start Date Stop Date Notes Calcitriol 0.25 MCG 1 capsule Orally Onc e a day for 90 day(s) 08/01/2024 04/28/2025 Progress Notes * MAJOADOLFO CRISSDOB: [birth year] (74 yo M)Acc No.[id number]:08/01/2024 Patient: CRISS CALERO :1950 Age:74 Y Sex:Male Address:[address] [place] [address] * Refills Start Calcitriol Capsule, 0.25 MCG, Orally, 90 Capsule, 1 capsule, Once a day, 90 day(s), Refills=2 * true * Date:
--- OUTSIDE RECORDS SUMMARY | 2025-01-09 16:27 | XMS_ITS | Data Portability ---
Author Organization [facility] [employer], Main Office Address [address] [place] [address] Care Team Providers Care Automation Controls Expert Name Role Phone NAILA MORENO Primary Care Provider NAILA MORENO Referring Provider MIGUEL A BALDERRAMA [employer] Coater DUNCAN SUAREZ Structural Designer MIGEL AMOS Equipment Maintenance Superintendent SUBHA FLETCHER General Surgeon BAILEY HERNANDEZ Orthopedic Surgeon [phone] Assessment Encounter Date Assessment Date Assessment LastModified by Organization Details LastModified Time 08/27/2024 08/27/2024 Assessment: Dysphonia Postnasal drip Nicotine smoke: 1 ppd [phone] (quit 12 years in between) = 41 pack years Mild COPD RUL nodule Hypertension Plan: The following were reviewed and explained to the patient: Chest CT 09/21/22 7 mm RUL nodule Chest CT 03/07/24 no acute abnormality Chest CT 05/13/24 5 mm RUL nodule [facility] 05/13/24 - 05/14/24 discharged on azithromycin, prednisone, Trelegy and albuterol inhalers [place] hospitalization 05/26/24 - 05/30/24 Lab data 06/04/24 [...] 2.3L TG 175 Urine micro alb 84.3H Not available 10/07/2024 12:13:30 10/08/2024 10/08/2024 74-year-old [...] positive Maribel. Positive Neer and Brandon. Positive [place]'s. X-rays of the shoulder were reviewed, demonstrating [...] as needed. [email or web address] Not available 10/08/2024 15:43:47 11/20/2024 11/20/2024 03/28/2023: A1C 8.1 BUN 20, Gluc 165, ALP 128 Chol 234, TG 188, LDL 144 Urine micro alb 195.9 05/17/2023: Folate/B12/VIT D WNL 11/29/2023: A1C 9.3 Urine micro alb 506.0 Hep panel: Neg GGT 59H Gluc 245, ALK 136H Chol 257, LDL 172 07/07/2024: PSA 0.67 A1C 9.1 Gluc 179H, TP 6.0L, glob 2.3L TG 175 Urine micro alb 84.3H Not available 11/20/2024 12:23:59 12/03/2024 12/03/2024 HPI: 74 year old male [...] Positive Maribel. Positive Neer and Brandon. Positive [place]'s. Motor: 5/5 strength. Limited by pain Sensation: [...] Time Details Appointments Any 15 2024 10:30A M Naila pompa MD Not available Not available Not available Lab testoster one, free + total, serum 2024 025 [email or web address] [facility] - Outpatient Lab, [address] [place] [address], [address], 11/20/2024 12:46:04 lipid panel, serum 2024 025 [email or web address] Not available 11/20/2024 12:46:03 CMP, serum or plasma 2024 025 PAZ Not available 12/16/2024 20:02:46 CBC w/ auto diff 2024 025 PAZ Not available 12/16/2024 20:02:46 TSH + free T4, serum 2024 025 [email or web address] Not available 11/20/2024 12:46:04 vitamin D, 25-hydrox y, total, serum 2024 025 [email or web address] [facility], [address] [place], [address], 11/20/2024 12:46:04 microalbu min, urine 2024 025 [email or web address] Not available 11/20/2024 12:46:02 glycohemo globin, total, blood 2024 025 [email or web address] Not available 11/20/2024 12:46:02 vitamin B12 + folate, serum or blood 2024 025 [email or web address] [facility] Out[facility], [address] [place], [address], 11/20/2024 12:46:04 testoster one, free + total, serum 2024 025 [email or web address] [facility], [address] [place], [address], 10/07/2024 12:29:42 lipid panel, serum 2024 025 [email or web address] Not available 10/07/2024 12:29:40 CMP, serum or plasma 2024 025 [email or web address] Not available 10/07/2024 12:29:41 CBC w/ auto diff 2024 025 [email or web address] Not available 10/07/2024 12:29:41 TSH + free T4, serum 2024 025 [email or web address] Not available 10/07/2024 12:29:41 vitamin D, 25-hydrox y, total, serum 2024 025 [email or web address] [facility] Out[facility], [address] [place], [address], 10/07/2024 12:29:42 microalbu min, urine 2024 025 [email or web address] Not available 10/07/2024 12:29:39 glycohemo globin, total, blood 2024 025 [email or web address] Not available 10/07/2024 12:29:40 vitamin B12 + folate, serum or blood 2024 025 [email or web address] [facility] Out[facility], [address] [place], [address], 10/07/2024 12:29:42 gram stain, sputum [email or web address] [place] [address] - Outpatient Lab, [address] [place], [address], 09/04/2024 15:26:10 culture, sputum 2023 024 [facility] Outpatient Lab, [address] [place], [address], 08/28/2024 09:23:[address] referral - Please call patient to schedule an appointme nt. Thank you. 2024 025 NEO Hare MD, [address] [facility], [address], [place], [address], 11/27/2024 11:20:42 nephrolog ist referral - Please call patient to schedule an appointme nt. Thank you. 2024 025 NEO Hinson MD (Nephrology, [address], [address], [place], [address], 11/27/2024 16:30:50 vascular surgeon referral - Please call patient to schedule an appointme nt. Thank you. 2024 025 [place], [address], [address], [place], [address], 11/27/2024 10:45:31 orthopedi c surgeon referral - Please call patient to schedule an appointme nt. Thank you. 2024 025 [email or web address] Balbir Claudette, [address], [address], [place], [address], 11/27/2024 10:40:31 gastroent erologist referral - Please call patient to schedule an appointme nt. Thank you. 2024 025 [facility], [address], [address], [place], [address], 12/01/2024 10:10:38 podiatris t referral - Please call patient to schedule an appointme nt. Thank you. 2024 025 PAZ Miguel A Balderrama DPM, [address] [facility], [address], [place], [address], 12/04/2024 10:59:02 cardiolog ist referral - Please call patient to schedule an appointme nt. Thank you. 2024 025 [email or web address] [place], [address], [address], [place], [address], 12/25/2024 09:41:37 gastroent erologist referral - Please call patient to schedule an appointme nt. Thank you. 2024 025 [facility], [address], [address], [place], [address], 12/01/2024 10:10:37 physical therapist referral - Please schedule pt for L shoulder. Thanks 2024 025 [email or web address] [facility], [address] [facility], [place], [address], 10/12/2024 20:27:32 nephrolog ist referral - Please call patient to schedule an appointme nt. Thank you. 2024 025 [email or web address] Owen Hinson MD (Nephrology, [address], [address], [place], [address], 12/25/2024 09:41:35 orthopedi c surgeon referral 2024 025 [email or web address] Bailey Hernandez MD, [address] [facility], [place], [address], 10/08/2024 17:47:12 orthopedi c surgeon referral - Please call patient to schedule. 2024 025 [email or web address] Bailey Hernandez MD, [address] [facility], [place], [address], 10/08/2024 17:47:11 gastroent erologist referral - Please call patient to schedule an appointme nt. Thank you. 2024 025 kendra Childers MD, [address] [facility] [place], [address], [place], [address], 11/24/2024 17:58:06 cardiolog ist referral 2024 025 [email or web address] [place], [address] [facility], [address], [place], [address], 10/08/2024 17:46:51 gastroent erologist referral - Please call patient to schedule an appointme nt. Thank you. 2024 025 kendra Childers MD, [address] [facility] [place], [address], [place], [address], 12/23/2024 08:40:[address] referral - Please call patient to schedule an appointme nt. Thank you. 2024 025 NEO Hare MD, [address] [facility], [address], [place], [address], 10/23/2024 12:20:31 podiatris t referral 2024 025 [email or web address] Miguel A Balderrama DPM, [address] [facility], [address], [place], [address], 10/08/2024 17:46:50 ENT surgery referral - Please call patient to schedule. 2023 024 [email or web address] 2 Barbara N Rik [employer], [address], [place], [address], 11/25/2024 08:19:42 Procedures injection /aspirati on joint/bur sa (PROC) 2024 025 [email or web address] In-Office Order, Internal Use Only DO Not Attach Compendium DO Not Attach Compendium, Do Not Delete/merge, [id number] 10/08/2024 14:40:14 Surgeries None recorded. Imaging MRI, shoulder, w/o contrast - Please contact pt to schedule apt. Thanks [address], [address], [place], [address], 12/05/2024 19:53:41 Medication Orders Celebrex 200 mg capsule [address] [facility], [address] [place] [address], [address], 12/05/2024 19:53:41 atorvasta tin 40 mg tablet 2024 [facility], [address] [place] [address], [address], 11/20/2024 12:44:48 metoprolo l succinate ER 50 mg tablet,ex tended release 24 hr 2024 [facility], [address] [place], [address], 11/20/2024 12:44:49 bupivacai ne HCl 0.5 % (5 mg/mL) injection solution [address] [facility], [address] [place] [address], [address], 10/12/2024 20:27:32 Kenalog 10 mg/mL suspensio n for injection [address] [facility], [address] [place] [address], [address], 10/12/2024 20:27:32 Mobic 15 mg tablet [address] [facility], [address] [place] [address], [address], 10/12/2024 20:27:32 meloxicam 7.5 mg tablet 2024 025 [facility], [address] [place] [address], [address], 10/07/2024 12:34:00 ipratropi um bromide 42 mcg (0.06 %) nasal spray 2023 024 [facility] [address], [address] [place] [address], [address], 08/27/2024 09:26:59 albuterol sulfate HFA 90 mcg/actua tion aerosol inhaler 2023 024 [facility], [address] [place] [address], [address], 08/27/2024 09:26:55 Anoro Ellipta 62.5 mcg-25 mcg/actua tion powder for inhalatio n 2023 024 [facility], [address] [place] [address], [address], 08/27/2024 09:26:56 Patient TargetsNo targets recorded. Patient Instructions Encounter Date Encounter Id Patient Instructions Last Modified By Organization Details Last Modified Time 10/07/2024 [id number] diabetic eye exam* [email or web address] Not available 10/07/2024 12:29:43 11/20/2024 [id number] diabetic eye exam* [email or web address] Not available 11/20/2024 12:46:05 Reason for Referral ENT Surgery Referral for Dys phonia Please call patient to schedule. Referring Physician: Duncan Suarez, Pulmonary Disease, Encounter Date: 08/27/2024 Brake Linings Coater Referral for Type 2 diabetes mellitus without complication Referring Physician: Naila Moreno Internal Medicine, Encounter Date: 10/07/2024 Equipment Maintenance Superintendent Referral for Co ronary arteriosclerosis Referring Physician: Naila Moreno Internal Medicine, Encounter Date: 10/07/2024 Neurologist Referral for Tra nsient cerebral ischemia Please call patient to schedule an appointment. Thank you. Referring Physician: Naila Moreno Internal Medicine, Encounter Date: 10/07/2024 Drafter Electrical Referral for Pr oteinuria Please call patient to schedule an appointment. Thank you. Referring Physician: Naila Moreno Internal Medicine, Encounter Date: 10/07/2024 Orthopedic Surgeon Referral for Pain of right knee joint Please call patient to schedule. Referring Physician: Naila Moreno Internal Medicine, Encounter Date: 10/07/2024 Laborer Concrete Paving Referral for Melendez's esophagus Please call patient to schedule an appointment. Thank you. Referring Physician: Naila Moreno Internal Medicine, Encounter Date: 10/07/2024 Laborer Concrete Paving Referral for Liver enzymes level above reference [...] Bailey Hernandez, Orthopedic Surgery, Encounter Date: 10/08/2024 Brake Linings Coater Referral for Type 2 diabetes mellitus without complication Please call patient to schedule an appointment. Thank you. Referring Physician: Naila Moreno Internal Medicine, Encounter Date: 11/20/2024 Equipment Maintenance Superintendent Referral for Co ronary arteriosclerosis Please call patient to schedule an appointment. Thank you. Referring Physician: Naila Moreno Internal Medicine, Encounter Date: 11/20/2024 Neurologist Referral for Tra nsient cerebral ischemia Please call patient to schedule an appointment. Thank you. Referring Physician: Naila Moreno Internal Medicine, Encounter Date: 11/20/2024 Drafter Electrical Referral for Pr oteinuria Please call patient to schedule an appointment. Thank you. Referring Physician: Naila Moreno [facility], Encounter Date: 11/20/2024 Laborer Concrete Paving Referral for Melendez's esophagus Please call patient to schedule an appointment. Thank you. Referring Physician: Naila Moreno [facility], Encounter Date: 11/20/2024 Laborer Concrete Paving Referral for Liver enzymes level above reference range Please call patient to schedule an appointment. Thank you. Referring Physician: Naila Moreno [facility], Encounter Date: 11/20/2024 Orthopedic Surgeon Referral for Pain of left shoulder joint Please call patient to schedule an appointment. Thank you. Referring Physician: Naila Moreno [facility], Encounter Date: 11/20/2024 Vascular Surgeon Referral fo r Carotid artery stenosis Please call patient to schedule an appointment. Thank you. Referring Physician: Naila Moreno [facility], Encounter Date: 11/20/2024 Results Created Date Observation Date Name Description Value Unit Range Abnormal Flag Note LastModifiedBy Organization Detail LastModifiedTime 08/27/20 24 08/30/2024 CULTU RE, SPUTU M/LOW ER RESPI RATOR Y culture, sputum/lower respiratory SEE NOTE abnormal CULTU RE, SPUTU M/LOW ER RESPI RATOR Y Micro Numbe r: [id number] Test Statu s: Final Speci men [...] or addit ional testi ng. Not Available [facility] [address] [place], [address], 08/30/2024 09:54:32 08/08/20 24 06/18/2024 compl ete PFT w/ post [facility] hodil ator altagracia metry * No observ ation record ed. BAR[facility] Not Available 2023 11:25:37 10/01/19 25 10/01/2024 imagi ng/di agnos tic resul t No observ ation record ed. [address], [place], [address], 10/01/2024 21:41:55 12/22/19 25 12/21/2024 imagi ng/di agnos tic resul t No observ ation record ed. [address], [place], [address], 12/21/2024 13:10:41 01/03/20 25 01/02/2025 imagi ng/di agnos tic resul t No observ ation record ed. [facility] [address], [place], [address], 01/02/2025 13:25:36 Result Notes None recorded. Problems Name Problem SNOMED Code Status Onset Date Resolution Date Notes Provider Name and Address Organization Details Recorded Time Carotid artery stenosis 17597161 Active 2022 Not Available [facility] 4 22:24:36 Coronary arteriosc lerosis 67457439 Active 2022 Not Available [facility] 4 22:24:36 Vitamin D deficienc y 14728414 Active 2022 Not Available [facility] 4 22:24:36 Carotid artery stenosis 68052879 Active 2022 Not Available [facility] 4 22:24:36 Male hypogonad ism 53914008 Active 2022 Not Available [facility] 4 22:24:36 Diabetic periphera l neuropath y 979012856 Active 2022 Not Available [facility] 4 22:24:36 Bilateral foot congenita l pes cavus 02306952584 217851 Active 2022 Not Available [facility] 4 22:24:35 Melendez's esophagus 119742328 Active 2022 Not Available [facility] 4 22:24:36 Transient cerebral ischemia 391854219 Active 2023 Naila albright MD [address], [address], [place], [address] , [facility] [employer] 4 12:46:26 Serum vitamin B12 below reference range 471175575 Active 2023 Naila albright MD [address], [address], [place], [address] , [employer] 4 12:46:26 Chronic kidney disease 779593109 Active 2023 Naila albright MD [address], [address], [place], [address] , [facility] [employer] 4 10:23:58 Osteoarth ritis of right knee joint 00000691836 9100 Active 2023 ANGIE Martienz [address], [address], [place], [address] , [facility] 4 16:55:12 Penile candidias is 831551439 Active 2023 Naila albright MD [address], [address], [place], [address] , [facility] 4 14:16:16 Chronic obstructi ve pulmonary disease 05689921 Active 2023 Naila albright MD [address], [address], [place], [address] , [facility] 4 14:16:16 Mild chronic obstructi ve pulmonary disease 963241734 Active 2023 Duncan Suarez MD [address], [address], [place], [address] , [facility] 4 16:48:00 Posterior rhinorrhe a 54565412 Active 2023 Duncan Suarez MD [address], [address], [place], [address] , [facility] 4 17:22:34 Dysphonia 90443478 Active 2023 Duncan Suarez MD [address], [address], [place], [address] , [facility] 4 09:26:26 Liver enzymes level above reference range 650287674 Active 2024 Naila albright MD [address], [address], [place], [address] , [facility] 5 12:14:26 Proteinur ia 63775824 Active 2024 Naila albright MD [address], [address], [place], [address] , [place] [facility] 5 12:14:26 Chronic pain 13985442 Active 2024 Naila albright MD [address], [address], [place], [address] , [facility] 5 12:14:26 Type 2 diabetes mellitus without complicat ion 072320720 Active 2024 Naila albright MD [address], [address], [place], [address] , [facility] 5 12:14:26 Pain of right knee joint 35891035269 4100 Active 2024 Naila albright MD [address], [address], [place], [address] , [facility] 5 12:14:26 Abdominal pain 65012282 Active 2024 Naila albright MD [address], [address], [place], [address] , [facility] 5 12:14:26 Pneumonia 535340433 Active 2024 Naila albright MD [address], [address], [place], [address] , [facility] 5 12:14:26 Acute allergic reaction 125449574 Active 2024 Naila albright MD [address], [address], [place], [address] , [facility] 5 12:14:26 Bilateral hip joint pain 51950318579 218906 Active 2024 Naila albright MD [address], [address], [place], [address] , [facility] 5 12:14:26 Pain of left shoulder joint 03395283090 513105 Active 2024 Naila albright MD [address] [facility] [place], [address] [address], [place], [address] , [facility] [employer] [facility] 5 12:32:15 Chronic back pain 035165384 Active [address] pain meds from Dr Villatoro Not Available [facility] 4 22:24:35 Impacted cerumen 77342577 Completed Not Available [facility] 3 04:53:49 Gastroeso phageal reflux disease 632399243 Active Not Available [facility] 4 22:24:36 Microalbu minuria 177895659 Active 2021 Not Available [facility] 4 22:24:36 Restless legs 30867973 Active 2017 Not Available [facility] 4 22:24:36 Sinusitis 10932592 Completed Not Available [facility] 3 04:53:50 Solitary nodule of lung 280049726 Active 2022 Not Available [facility] 4 22:24:36 Herpes zoster 3386834 Completed Not Available [facility] 3 04:53:50 Hip pain 80136689 Completed Not Available [facility] 3 04:53:50 Dysuria 81787625 Completed Not Available [facility] 3 04:53:50 Hyperlipi demia 01904011 Active Not Available [facility] 4 22:24:36 Essential hypertens ion 96077287 Active Not Available [facility] 4 22:24:36 Diarrhea 13157405 Completed Not Available [facility] 3 04:53:51 Polyp of colon 74276011 Active Not Available [facility] 4 22:24:36 Notes:Medical History: TIA 2 023 R>L tinnitus Rhinitis with postnasal drip IgE 112 IU/mL Eosinophils 90/uL Goiter Mild COPD RUL nodule Mixed hyperlipidemia T2DM with microalbuminuria & neuropathy CAD Hiatal hernia with ALEX & Melendez's esophagus Hepatic steatosis Diverticulosis Thoracolumbar DDD Right knee chondromalacia & bursitis RLS Procedure History: T&A 1961 Anterior cervical discectomy fusion (ACDF) 1998 Left hip replacement 2007 Colonoscopy with candelaria ypectomy 2010 Right hip replacement 2018 Right carotid artery stent 2022 Cholecystectomy 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 Procedures Surgical History Date Name Laterality Status Provider Name and Address Organization Details Recorded Time 10/08/19 25 Ortho - Cortisone Injection completed Bailey Hernandez MD [address], [address], [place], [address], [employer] 10/08/2024 15:44:23 06/04/20 24 Transitional_Car e_Management completed Naila Moreno MD [address], [address], [place], [address], [employer] 06/04/2024 14:34:44 05/26/20 24 Transitional_Car e_Management completed Naila Moreno MD [address], [address], [place], [address], [employer] 05/26/2024 18:46:46 04/03/20 24 Medicare Wellness CPT Code, subsequent completed Sumeet Lai LPN [facility] 04/01/2024 12:41:54 05/02/20 23 Colonoscopy completed LEE Boyd [facility] 05/16/2023 14:33:53 02/01/20 19 Total hip arthroplasty completed Not Available [employer] 11/15/2022 04:43:55 Orthopedic Surgery completed Not Available [facility] 11/15/2022 04:43:55 Orthopedic Surgery completed Not Available [facility] 11/15/2022 04:43:55 Orthopedic Surgery completed Not Available [facility] 11/15/2022 04:43:55 insertion of carotid artery stent completed LEE Boyd [facility] 03/28/2023 14:33:51 Imaging Results Imaging Date Name Status LastModified by Organization Details LastModified Time 06/18/2024 complete PFT w/ post bronchodilator spirometry* completed [facility] Information not available 08/08/2024 11:25:37 10/01/2024 imaging/diagnostic result active [address], [place], [address], 10/01/2024 21:41:55 12/21/2024 imaging/diagnostic result active [facility] [address] [facility] [address], [place], [address], 12/21/2024 13:10:41 01/02/2025 imaging/diagnostic result active [facility] [address], [place], [address], 01/02/2025 13:25:36 Procedure Notes None recorded. Medical Equipment None [...] mg by injectio n route. 2024 active [facility]: [phone] Not Available Not Available Not Available amlodipin [...] completed Not Available Not Available Not Available lansopraz ole 30 mg capsule,d elayed release TAKE 1 CAPSULE BY MOUTH ONCE DAILY active Not Available Not Available No t Available prednison e 50 mg tablet TAKE [...] bromide 42 mcg (0.06 %) nasal spray [place] 1 spray 4 times a day by [...] Updated DateTime 4 162.56 cm 25.3 kg/m2 35997.8 g 98.2 [degF] 81 /min 97 % 97 % Gayle Quintanilla MA [facility] 08:54:56 Date Recorded Heart rate Respiratory rate Systolic blood pressure Diastolic blood pressure Provider Name and Address Organization Details Last Updated DateTime 08/27/2024 81 /min 17 /min 140 mm[Hg] 84 mm[Hg] Duncan jose MD [address] [facility] [place], [address], [address] , [facility] [employer] 08/27/2024 09:17:52 Date Recorded Body height Body mass index (BMI) Body weight Body temperature Heart rate Systolic blood pressure Diastolic blood pressure Provider Name and Address Organization Details Last Updated DateTime 162.56 cm 23.3 kg/m2 95174.5 6 g 97.7 [degF] 78 /min 140 mm[Hg] 80 mm[Hg] LEE Boyd [facility] 11:57:16 Date Recorded Body height Body mass index (BMI) Body weight Provider Name and Address Organization Details Last Updated DateTime 10/08/2024 162.56 cm 23.3 kg/m2 78506.56 g [employer] 10/08/2024 14:27:08 Date Recorded Body height Body mass index (BMI) Body weight Body temperature Heart rate Oxygen saturation Oxygen saturation in Arterial blood by Pulse oximetry Pain severity - 0-10 verbal numeric rating [Score] - Reported Systolic blood pressure Diastolic blood pressure Provider Name and Address Organization Details Last Updated DateTime 5 162.56 cm 22.8 kg/m2 77347.7 9 g 97.8 [degF] 81 /min 97 % 97 % 10 160 mm[Hg] 82 mm[Hg] Gayle Quintanilla MA [facility] 11:56:05 Date Recorded Body height Body mass index (BMI) Body weight Provider Name and Address Organization Details Last Updated DateTime 12/03/2024 162.56 cm 23.3 kg/m2 83823.56 g [employer] 12/03/2024 14:53:40 Social History Question Answer Notes LastModified by Organization Details LastModified Time Tobacco Smoking Status Former Smoker quit 02/2023 LEE Boyd, [place] [employer] [facility] 03/28/2023 14:32:44 Do You Have An Advance Directive? Yes Patient Stated He Needs To Update Since . Recommended Working With An Paper Grader. MIGRATION.004 [id number] Information not available 11/15/2022 What Is Your Level Of Alcohol Consumption? None MIGRATION.960 [id number] Information not available 11/15/2022 Do You Wear A Helmet When Biking? No Does Not Bike Information not available 04/03/2024 Are You Blind Or Do You Have Difficulty Seeing? No MIGRATION.525 [id number] Information not available 11/15/2022 Is Blood Transfusion Acceptable In An Emergency? Yes [email or web address] Information not available 04/03/2024 What Is Your Level Of Caffeine Consumption? Moderate MIGRATION.628 [id number] Information not available 11/15/2022 How Much Tobacco Do You Chew? None MIGRATION.261 2133624 Information not available 11/15/2022 In The 14 Days Before Symptom Onset, Have You Had Close Contact With A Laboratory-conf irmed COVID-19 While That Case Was Ill? No MIGRATION.527 [id number] Information not available 11/15/2022 In The 14 Days Before Symptom Onset, Have You Had Close Contact With A Person Who Is Under Investigation For COVID-19 While That Person Was Ill? No MIGRATION.272 [id number] Information not available 11/15/2022 Are You Currently Employed? No Information not available 03/28/2023 Are You Deaf Or Do You Have Serious Difficulty Hearing? No MIGRATION.544 [id number] Information not available 11/15/2022 What Type Of Diet Are You Following? REGULAR MIGRATION.135 6321577 Information not available 11/15/2022 Which Illicit Or Recreational Drugs Have You Used? None MIGRATION.217 8583263 Information not available 11/15/2022 What Is The Highest Grade Or Level Of School You Have Completed Or The Highest Degree You Have Received? [id number] [email or web address] Information not available 04/03/2024 Do You Have An Electrostatic Air Filter? No Information not available 08/27/2024 What Is Your Occupation? Retired MIGRATION.737 [id number] Information not available 11/15/2022 How Many Days Of Moderate To Strenuous Exercise, Like A Brisk Walk, Did You Do In The Last 7 Days? 2 Information not available 04/03/2024 On Those Days That You Engage In Moderate To Strenuous Exercise, How Many Minutes, On Average, Do You Exercise? 30 [email or web address] Information not available 04/03/2024 Have You Been Exposed To Chemicals Or Toxins? No No That Aware Of Information not available 08/27/2024 Have There Been Any Changes To Your Family Or Social Situation? No MIGRATION.541 [id number] Information not available 11/15/2022 What Is The Fluoride Status Of Your Home? Unknown MIGRATION.815 7366304 Information not available 11/15/2022 When Did You Quit Smoking? 1-5yearssincelastc igarette [email or web address] Information not available 04/05/2023 Are There Any Guns Present In Your Home? No MIGRATION.791 5367539 Information not available 11/15/2022 Do You Have A Humidifier? No Information not available 08/27/2024 Do You Use Insect Repellent Routinely? No MIGRATION.191 [id number] Information not available 11/15/2022 Where Do You Live? SingleLevelHouse MIGRATION.123 [id number] Information not available 11/15/2022 Presence Of Domestic Violence No [email or web address] Information not available 04/03/2024 Guns Present In The Home? No [email or web address] Information not available 04/03/2024 Are You Able To Care For Yourself? Yes [email or web address] Information not available 04/03/2024 Are You Blind Or Do Yo Have Difficulty Seeing? No [email or web address] Information not available 04/03/2024 Are You Deaf Or Do You Have Serious Difficulty Hearing? No [email or web address] Information not available 04/03/2024 General Stress Level? Low [email or web address] Information not available 04/03/2024 Live Alone Of With Others? With Others Dtr. And Her Family Lives Woth Patient [email or web address] Information not available 04/03/2024 Do You Have A Medical Power Of Paper Grader? No [email or web address] Information not available 04/03/2024 Do You Have Moisture Problems In Your Home? No Information not available 08/27/2024 What Was The Date Of Your Most Recent Tobacco Screening? 11/20/2024 Information not available 11/20/2024 What Is Your Current Pack Years? 30ormorepackyears MIGRATION.769 [id number] Information not available 11/15/2022 Do You Have Any Pets? No 1 Dog 1 Cat [email or web address] Information not available 04/03/2024 What Is Your Relationship Status? MIGRATION.152 [id number] Information not available 11/15/2022 Do You Use Your Seat Belt Or Car Seat Routinely? Yes MIGRATION.872 [id number] Information not available 11/15/2022 Do You Have Smoke And Carbon Monoxide Detectors In Your Home? Yes MIGRATION.742 1989310 Information not available 11/15/2022 At What Age Did You Start Smoking Tobacco? 18 MIGRATION.625 [id number] Information not available 11/15/2022 Are You Passively Exposed To Smoke? No [email or web address] Information not available 04/03/2024 Are There Any Smokers In Your House? No Information not available 04/03/2024 How Much Tobacco Do You Smoke? No Was 1/2 Ppd Information not available 03/28/2023 What Types Of Sporting Activities Do You Participate In? None [email or web address] Information not available 04/03/2024 Do You Feel Stressed (tense, Restless, Nervous, Or Anxious, Or Unable To Sleep At Night)? [id number] MIGRATION.478 0808148 Information not available 11/15/2022 Do You Use Any Illicit Or Recreational Drugs? No MIGRATION.199 2420726 Information not available 11/15/2022 Do You Use Sunscreen Routinely? Yes MIGRATION.760 7445553 Information not available 11/15/2022 How Many Years Have You Smoked Tobacco? 53 MIGRATION.781 8119147 Information not available 11/15/2022 Have You Recently Traveled Abroad? No MIGRATION.455 8471287 Information not available 11/15/2022 Do You Have Any Dietary Restrictions? No MIGRATION.172 8530875 Information not available 11/15/2022 Do You Or Have You Ever Used Any Other Forms Of Tobacco Or Nicotine? No MIGRATION.691 3160897 Information not available 11/15/2022 Sex: Male Functional Status Question Answer Note LastModified by Organizat ion Details LastModified Time Do you have difficulty walking or climbing stairs? No MIGRATION.[id number] 2823 Information not available 11/15/2022 Do you have transportation difficulties? No MIGRATION.739164 0537 Information not available 11/15/2022 Are you able to walk? YESWOREST MIGRATION.545128 1215 Information not available 11/15/2022 Do you have difficulty doing errands alone? No MIGRATION.117113 3513 Information not available 11/15/2022 Are you able to care for yourself? Yes MIGRATION.887479 5063 Information not available 11/15/2022 Do you have difficulty dressing or bathing? No MIGRATION.516017 7592 Information not available 11/15/2022 What is your exercise level? Occasional Active life stlye Information not available 04/03/2024 Mental Status Question Answer Note LastModified by Organizat ion Details LastModified Time Do you have difficulty concentrating, remembering or making decisions? No MIGRATION.[id number] 6 Information not available 11/15/2022 Family History Relationship Description Onset Age of this Age Resolved Age Notes LastModified by Organization Details LastModified Time Brother Essential hypertension MIGRATION.283 [id number] Not available 11/15/2022 04:44:01 Brother Malignant neoplastic disease Colon MIGRATION.525 0616324 Not available 11/15/2022 04:44:01 Father Essential hypertension MIGRATION.939 0339089 Not available 11/15/2022 04:44:01 Father Heart disease MIGRATION.915 2455300 Not available 11/15/2022 04:44:01 Mother Essential hypertension MIGRATION.321 2682341 Not available 11/15/2022 04:44:01 Mother Heart disease MIGRATION.256 1015535 Not available 11/15/2022 04:44:01 Sister Malignant neoplastic disease Breast MIGRATION.404 2185498 Not available 11/15/2022 04:44:02 Maternal Grandmother Family history of stroke [email or web address] Not available 2022 14:36:39 Mother Arthritis Not available 07/10/2023 15:37:23 Mother Osteoporosis Not availa ble 07/10/2023 15:37:45 Medical History Condition Response ARTHRITIS Y USE OF BLOOD THINNERS Y DIABETES, TYPE Y BACK / NECK PROBLEMS Y SLEEP DISORDER Y HEARTBURN / REFLUX Y HYPERTENSION Y HIGH CHOLESTEROL / HYPERLIPIDEMIA Y STROKE/TIA Y Immunizations Vaccine Type Date Status Note Provider Manolo stack and Address Organization Details Recorded Time COVID-19, mRNA, LNP-S, PF, 100 mcg/0.5mL dose or 50 mcg/0.25mL dose 1 [facility] 14:20:36 COVID-19, mRNA, LNP-S, PF, 100 mcg/0.5mL dose or 50 mcg/0.25mL dose 1 completed [facility] 14:20:36 pneumococcal polysaccharide PPV23 3 [facility] 14:20:36 Influenza, split virus, trivalent, PF 7 [facility]24 14:20:37 COVID-19, mRNA, LNP-S, PF, 30 mcg/0.3 mL dose 1 completed [facility]24 14:20:36 COVID-19, mRNA, LNP-S, PF, 30 mcg/0.3 mL dose 1 completed [facility]2024 14:20:36 pneumococcal polysaccharide PPV23 7 completed [facility]24 14:20:36 Influenza, high-dose, trivalent, PF 9 completed Not Available [facility] 10/02/2023 01:29:04 Influenza, high-dose, trivalent, PF 8 completed Not Available [facility] hospital 10/02/2023 01:29:04 Pneumococcal conjugate PCV 13 8 completed Sumeet Lai LPN null, [facility] 04/01/2024 14:20:36 Influenza, high-dose, trivalent, PF 5 completed Not Available Critical access hospital 10/02/2023 01:29:04 pneumococcal polysaccharide PPV23 5 completed Not Available Critical access hospital 10/02/2023 01:29:04 Influenza, split virus, trivalent, PF 4 completed SANDRA Rosa, [facility] 04/01/2024 14:20:37 Influenza, split virus, trivalent, PF 3 completed SANDRA Rosa, [facility] 04/01/2024 14:20:37 Past Encounters Encounter ID Performer Location Encounter Start Date Encounter Closed Date Diagnosis/Indication Diagnosis SNOMED-CT Code Diagnosis ICD10 Code Diagnosis Note [id number] [facility] [address] [place] [address]. [place] [address] 05/26/2021 00:00:00 06/07/2021 17:13:19 [id number] [facility] [address] [place] [address] 05/26/2021 00:00:00 06/07/2021 17:22:34 [id number] [facility] [address] [place] [address] 10/11/2021 00:00:00 10/11/2021 12:15:42 [id number] [facility] [address] [place] [address] 11/10/2021 00:00:00 11/10/2021 14:15:46 [id number] [facility] [address] [place] [address] 12/21/2021 00:00:00 12/21/2021 12:26:48 [id number] [facility] [address] [place] [address] 02/09/2022 00:00:00 02/09/2022 13:02:43 [id number] [facility] [address] [place] [address] 06/13/2022 00:00:00 06/13/2022 17:11:20 [id number] [facility] [address] [facility] [place] [address] 07/26/2022 00:00:00 07/26/2022 10:05:44 [id number] [facility] [address] [place] [address] 10/16/2022 00:00:00 10/16/2022 17:28:29 [id number] Josemanuel Jones MD [facility] [address] [place] [address] 02/22/2023 14:00:48 02/22/2023 14:44:11 Diabetes mellitus 23403760 E11.9 , advised to get labs Hyperlipidemia 01194858 E78.5 Zetia, needs labs Essential hypertension 34347976 I10 add HCTZ Restless legs 67480849 G 25.81 meds help Gastroesop hageal reflux disease 525862233 K21.9 meds help Chronic pain syndrome 37 2484908 G89.4 otc helps Bilateral hip joint pain 2534560510 6487889 M25.551 OTC Smoker 44416383 F17.200 advised to quit Solitary n odule of lung 015384333 R91.1 advised to quit smoking Adult heal th examination 212819941 Z00.00 colonoscop y- due, was ordered few times, he will call GI to schedule it, will not reorderPSA -07/07, WAS [id number] 09/23/2017PP 23- 07/28/2013 , 02/2017, 08/04/2015 influenza vaccine- 08/13/19CO VID- 12/26/2020 , 01/27/2021 Chronic ob structive pulmonary disease 97243776 J44.9 better Weakness o f left upper limb 1162505485 32290 M62.81 improved, watch, symptoms were vague Screening for malignant neoplasm of prostate 321513875 Z12.5 Depression screening 171 686889 Z13.31 neg Body mass index 20-24 - normal 819799279 Z68.23 [id number] Nalia albright MD [facility] [place] [address] [facility] [place] [address] 03/28/2023 13:57:30 03/28/2023 15:13:44 Screening - NAD 817132544 Z13.9 C-scope: Get this done or get the report if done Get yearly flu shotUTD on COVID X2, can do boostersUT D on PCVGet tdap if not doneGet Shingrix if not done RTC in 3 months, do labs, ER if worse, he did verbalize his understand ing of the above Hyperlipidemia 69087845 E78.5 On ASAOn atorvastat in 40mg dailyGet labs 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 782019596 E11.9 On metformin Get labs Gastroesop hageal reflux disease without esophagitis 039679245 K21.9 On omeprazole Get EGD done Chronic ob structive pulmonary disease 63771286 J44.9 On albuterolO n HHNsOn trelegy Carotid ar angel stenosis 08890501 I65.29 S/p stent in 03/09On ASAOn plavix Restless legs 84700849 G 25.81 On requipDoes well Ex-cigarette smoker 2810 50200 Z87.891 LDCT 09/21/2022 Get US AAA done Coronary arteriosclerosis 39010375 I25.10 CAD noted Get a referral to cardiology Dr Guevara Screening for malignant neoplasm of colon 972976500 Z12.11 Transient cerebral ischemia 749275642 G45.[address] Schumacher his neurologis t, get last OV note S/p hospitaliz ation, does very well now, no residual symptoms at this timeOn [place]SAOn [place]ixOn [place]vast[place] in [id number] Duncan Suarez MD [facility] [address] [facility], [facility] [address] [place] [address] 04/05/2023 11:23:02 04/06/2023 07:44:46 Dyspnea on exertion 20925458 R06.09 R05.9 T78.40XA D89.9 Solitary n odule of lung 648898358 R91.1 [id number] Naila albright MD [facility] [address] [facility] [place] [address] 05/16/2023 14:18:54 05/16/2023 15:23:17 Screening - NAD 329624676 Z13.9 C-scope: Get this done or get the report if done Get yearly flu shotUTD on COVID X2, can do boostersUT D on PCVGet tdap if not doneGet Shingrix if not done RTC in 3 months, do labs, ER if worse, he did verbalize his understand ing of the above Hyperlipidemia 10917946 E78.5 On ASAOn atorvastat in 40mg dailyGet labs 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 292397314 E11.9 On metforminO n FarxigaOn olmesartan Get labs Gastroesop hageal reflux disease without esophagitis 713329547 K21.9 On omeprazole Get EGD done Chronic ob structive pulmonary disease 16968183 J44.9 On albuterolO n HHNsOn trelegy Carotid ar angel stenosis 91521535 I65.29 S/p stent in 03/09On ASAOn plavix Restless legs 94077948 G 25.81 On requipDoes well Ex-cigarette smoker 2810 56984 Z87.891 LDCT 09/21/2022 Get US AAA done as US AAA 04/04/2023 was non diagnostic d/t bowel gas Coronary arteriosclerosis 53637454 I25.10 [facility] , f/u in one month Screening for malignant neoplasm of colon 133077701 Z12.11 Transient cerebral ischemia 273296887 G45.9 CT Angio: 02/28/2023 : High grade stenosis, R ICA, s/p stent He does see Dr Schumacher his neurologis t, get last OV note S/p hospitaliz ation, does very well now, no residual symptoms at this timeOn ASAOn plavixOn atorvastat in Liver enzy mes level above reference range 460138952 R74.8 Get labs and US liver Proteinuria 95470747 R80 .9 Sees nephrology Pain of ri ght knee joint 3706834228 78077 M25.561 Get a referral to ortho Male hypogonadism 303464 06 E29.1 get labs Serum shane min B12 below reference range 075782493 R79.89 Vitamin D deficiency 347 31765 E55.9 [id number] ANGIE Ordonez [facility] [address] [address] [place] [address] 05/24/2023 13:58:48 05/24/2023 16:01:49 Pain of right knee joint 0993500241 44241 M25.091 [id number] Miguel A Balderrama DPM [facility] [address] [facility], [address] [place] [address] 07/10/2023 14:30:43 07/16/2023 09:50:24 Diabetic peripheral neuropathy 752163829 E11.40 Rx diabetic shoes and insertsPat ient educated on neuropathy , diabetes, diabetic diet, and daily foot exams. Patient is to check feet daily for new wounds, blisters, redness to prevent infection and ulceration s to the feet. Patient will return to clinic in 3 months for diabetic foot workup. Bilateral foot congenital pes cavus 9739670451 3335583 Q66.71 Q66.72 Recommend diabetic shoes and inserts History of cerebrovascular accident 895475943 Z86.73 continue with PCP recommenda tion [id number] Naila albright MD [facility] [address] [facility], [facility] [address] [place] [address] 08/30/2023 13:57:45 08/30/2023 15:23:44 Screening - NAD 353994738 Z13.9 C-scope: 05/02/2023 , Dr Dickson next in one year Get yearly flu shotUTD on COVID X2, can do boostersUT D on PCVGet tdap if not doneGet Shingrix if not done RTC in 3 months, do labs, ER if worse, he did verbalize his understand ing of the above Hyperlipidemia 08548529 E78.5 On ASAOn atorvastat in 40mg dailyGet labs 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 193173890 E11.9 On metforminO n FarxigaOn olmesartan Get labs Chronic ob structive pulmonary disease 37271929 J44.9 On albuterolO n HHNsOn trelegy Carotid ar angel stenosis 37976607 I65.29 S/p stent in 06/23On ASAOn plavix Restless legs 48158359 G 25.81 On requipDoes well Ex-cigarette smoker 2810 09398 Z87.891 LDCT 09/21/2022 Get US AAA done as AAA 04/04/2023 was non diagnostic d/t bowel gas Coronary arteriosclerosis 35613811 I25.[address] Bette 04/12/2023 , f/u in one month Transient cerebral ischemia 569125069 G45.9 CT Angio: 02/28/2023 : High grade stenosis, R ICA, s/p stent He does see Dr Schumacher his neurologis t, get last OV note S/p hospitaliz ation, does very well now, no residual symptoms at this timeOn ASAOn plavixOn atorvastat in Liver enzy mes level above reference range 914146844 R74.8 ALP 128 03/28/2023 Get labs and US liver Proteinuria 89639065 R80 .9 US kidney 05/25/2023 : Dr Hinson IJ Pain of ri ght knee joint 1294821780 86336 M25.561 MRI R knee: 06/07/2023 : Dr Wilkins Male hypogonadism 494397 06 E29.1 get labs Serum shane min B12 below reference range 711677635 R79.89 Vitamin D deficiency 347 23808 E55.9 Get labs Melendez's esophagus 3029 38967 K22.70 On omeprazole 05/02/2023 : EGD BarrettsNe eds a follow up with GI Impacted c erumen of bilateral ears 1363323138 180785 H61.23 Moderate cerumen extracted from his fuentes ears 08/30/2023 , he tolerated the procedure well Upper resp iratory infection 21219067 J06.9 Get flu/strep and COVID 19 testStart on Z-pack, ER if worse Chronic pain 50641514 G8 9.29 Get a referral to pain management [id number] Naila albright MD [facility] [address] [place] [address] 09/25/2023 15:56:57 09/25/2023 16:44:27 Abdominal pain 87985262 R10.9 Seen in the ER on 09/19/2023 [...] will see him this 09/27/2023 at 10.30am [id number] Subha patricia MD [facility] [address] [place] [address] 09/27/2023 11:17:35 09/27/2023 14:26:21 Foreign body 916560769 Z87.821 Foreign body cecum [id number] Naila albright MD [facility] [place] [address] [place] [address] 11/29/2023 09:48:07 11/29/2023 10:38:28 Screening - NAD 578823259 Z13.9 C-scope: 05/02/2023 , Dr Dickson next in one year Get yearly flu shotUTD on COVID X2, can do boostersUT D on PCVGet tdap if not doneGet Shingrix if not doneGet RSV vaccine RTC in 3 months, do labs, ER if worse, he did verbalize his understand ing of the above Hyperlipidemia 92146758 E78.5 On ASANot on atorvastat in 40mg daily On rosuvastat in 40mg dailyGet labs 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 217194760 E11.9 On metforminO n FarxigaNot on olmesartan Get labs Chronic ob structive pulmonary disease 66293759 J44.9 On albuterolO n HHNsNot on trelegy Carotid ar angel stenosis 59515265 I65.29 S/p stent in ASAOn plavix Restless legs 47679362 G 25.81 Not on requipOn lyrica 75mg Dr Riojas well Ex-cigarette smoker 2810 58748 Z87.891 LDCT 09/21/2022 Get US AAA done as US AAA 04/04/2023 was non diagnostic d/t bowel gas US AAA 09/18/2023 : Neg Coronary arteriosclerosis 01536537 I25.10 CAD notedDr Bette 04/12/2023 , f/u in one month, referred 11/29/[address] daily [address] Sravan OTERO Transient cerebral ischemia 117370093 G45.9 CT Angio: 02/28/2023 : High grade stenosis, R ICA, s/p stent He does see Dr Schumacher his neurologis t, get last OV note S/p hospitaliz ation, does very well now, no residual symptoms at this timeOn ASANot on plavixNot on atorvastat in On rosuvatati n 40mg daily Liver enzy mes level above reference range 896122561 R74.8 ALP 128 03/28/2023 Get labs and US liver Addendum: 12/07/23US liver 12/03/2023 : Hepatic steatosis, triage notified Proteinuria 38694037 R80 .9 US kidney 05/25/2023 : Dr Sravan OTERO Pain of ri ght knee joint 3376324149 06381 M25.561 MRI R knee: 06/07/2023 : Dr Lemon erred to Dr Hernandez Male hypogonadism 447906 06 E29.1 get labs Serum shane min B12 below reference range 527981626 R79.89 Vitamin D deficiency 347 44245 E55.9 Get labs Melendez's esophagus 3029 05305 K22.70 On omeprazole 05/02/2023 : EGD BarrettsNe eds a follow up with GI Chronic pain 84608997 G8 9.29 Get a referral to pain management today 11/29/2023 , states that he does not want any pain meds at all Abdominal pain 12989108 R10.9 Seen in the ER on 09/19/2023 [...] : Case sent Acute magi rgic reaction [id number] T78.40XA Seen in ERTreated with steroids, now is doing well Chronic ki dney disease 948860538 N18.9 On calcitriol On losartan Sees Dr Hinson IJ [id number] Naila albright MD [facility] [place] [address] [facility] y , [facility] [place] [address] 12/10/2023 10:45:19 12/10/2023 11:26:10 Type 2 diabetes mellitus without complication 836210732 E11.9 On metformin ER 500mg daily, will increase to bidOn Farxiga 10mg daily but was not taking d/t costGet on Jardiance 10mg dailyIs adamant that he does not want to start on any insulin, states that he also was not very compliant with the metforminH e has be told to take his meds on scheduleNo t on olmesartan Get labs Penile candidiasis 38737 8000 B37.49 No more rash noted, he is using his nystatin-t rimacinolo ne cream and states that the rash is cleared up now Screening - NAD 03897964 3 Z13.9 C-scope: 05/02/2023 , Dr Dickson next in one year Get yearly flu shotUTD on COVID X2, can do boostersUT D on PCVGet tdap if not doneGet Shingrix if not doneGet RSV vaccine RTC in 3 months, do labs, ER if worse, he did verbalize his understand ing of the above Hyperlipidemia 94636448 E78.5 On ASAOn atorvastat in 40mg daily, states today 12/10/2023 that he has not been compliant with taking his medication , advised to become compliant and repeat the labs Not on rosuvastat in 40mg dailyGet labs Chronic ob structive pulmonary disease 49353386 J44.9 On albuterolO n HHNsNot on trelegy Carotid ar angel stenosis 63924923 I65.29 S/p stent in 03/09On ASANot on plavixNeed s to see cardiology Restless legs 37243959 G 25.81 Not on requipOn lyrica 75mg Dr Riojas well Ex-cigarette smoker 2810 70942 Z87.891 LDCT 09/21/2022 Get US AAA done as US AAA 04/04/2023 was non diagnostic d/t bowel gas US AAA 09/18/2023 : Neg Coronary arteriosclerosis 63162666 I25.10 [address] notedDr Bette 04/12/2023 , f/u in one month, referred 11/29/[address] daily [address] Sravan Kearneys to see Dr Amos Transient cerebral ischemia 286368479 G45.9 CT Angio: 02/28/2023 : High grade stenosis, R ICA, s/p stent He does see Dr Schumacher his neurologis t, get last OV note S/p hospitaliz ation, does very well now, no residual symptoms at this timeOn ASANot on plavixNot on atorvastat in On rosuvatati n 40mg daily Liver enzy mes level above reference range 927282102 R74.8 ALP 128 03/28/2023 Get labs and US liver Addendum: 12/07/23US liver 12/03/2023 : Hepatic steatosis, triage notified Proteinuria 31226790 R80 .9 US kidney 05/25/2023 : Dr Hinson IJ Pain of ri ght knee joint 4264653283 97430 M25.561 MRI R knee: 06/07/2023 : Dr Lemon erred to Dr Hernandez Male hypogonadism 150420 06 E29.1 get labs Serum shane min B12 below reference range 669575697 R79.89 Vitamin D deficiency 347 35961 E55.9 Get labs Melendez's esophagus 3029 79376 K22.70 On omeprazole 05/02/2023 : EGD Tonja eds a follow up with GI Chronic pain 99688955 G8 9.29 Get a referral to pain management today 11/29/2023 , states that he does not want any pain meds at all Abdominal pain 59646324 R10.9 Seen in the ER on 09/19/2023 and 09/24/2023 , still has some LLQ abdominal discomfort , s/p CT A/P 01/03 and 09/24, treated with antibiotic and IVF, [...] abd pain noted Acute magi rgic reaction 497783743 T78.40XA Seen in ERTreated with steroids, now is doing well Chronic ki dney disease 773548519 N18.9 On calcitriol On losartan Sees Dr Hinson IJ [id number] ANGIE Martinez [facility] [place] [address] [place] [address] 12/25/2023 14:36:22 12/25/2023 15:57:04 Pain of right knee joint 1734853735 01823 M25.561 Osteoarthr itis of right knee joint 4440046754 82802 M17.11 [id number] ANGIE Martinez [facility] [place] 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 316401572 E11.9 On metformin ER 500mg bidOn Farxiga 10mg daily but was not taking d/t Carson Jardiance 10mg daily Is adamant that he does not want to start on any insulin, states that he also was not very compliant with the metforminH e has be told to take his meds on scheduleNo t on olmesartan Get labs Penile candidiasis 22660 8000 B37.49 No more rash noted, he is using his nystatin-t rimacinolo ne cream and states that the rash is cleared up now Hyperlipidemia 42344103 E78.5 On ASAOn atorvastat in 40mg daily Not on rosuvastat in 40mg dailyGet labs Chronic ob structive pulmonary disease 24405480 J44.9 On albuterolO n HHNsNot on trelegyNee ds to keep apt with Dr Suarez Carotid ar angel stenosis 91726693 I65.29 S/p stent in 03/09On ASANot on plavixDr Bette [facility] 02/21/2024 , next in 6 months Restless legs 95788648 G 25.81 Not on requipOn lyrica 75mg Dr Riojas well Ex-cigarette smoker 2810 59190 Z87.891 LDCT 09/21/2022 Get US AAA done as US AAA 04/04/2023 was non diagnostic d/t bowel gas US AAA 09/18/2023 : Neg Coronary arteriosclerosis 47590917 I25.10 CAD noted On losartan 50mg daily Dr Sravan palma done 25mg dailyDr Bette 02/20/2023 Transient cerebral ischemia 275527495 G45.9 CT Angio: 02/28/2023 : High grade stenosis, R ICA, s/p stent He does see Dr Schumacher his neurologis t, get last OV note S/p hospitaliz ation, does very well now, no residual symptoms at this timeOn ASANot on plavixNot on atorvastat in On rosuvatati n 40mg daily Liver enzy mes level above reference range 136844400 R74.8 ALP 128 03/28/2023 Get labs and US liver Addendum: 12/07/23US liver 12/03/2023 : Hepatic steatosis, triage notified Proteinuria 66483350 R80 .9 US kidney 05/25/2023 : Dr Hinson IJ Pain of ri ght knee joint 8578368924 87964 M25.561 MRI R knee: 06/07/2023 : Dr Lemon erred to Dr Hernandez Male hypogonadism 030253 06 E29.1 get labs Serum shane min B12 below reference range 417744268 R79.89 Vitamin D deficiency 347 45231 E55.9 Get labs Melendez's esophagus 3029 85068 K22.70 On omeprazole 05/02/2023 : EGD BarrettsNe eds a follow up with GI EGD 01/04/2024 : 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 Addendum: 04/03/2024 :See case, needs to get another EGD, he was notified Chronic pain 60778483 G8 9.29 Referred to pain management 11/29/2023 ,Advised not to take any NSAIDs d/t CAD and CKD issuesOK to refill his methocarba mol to take as needed in very limited quantities , if he needs more see pain management Abdominal pain 65348696 R10.9 Seen in the ER on 09/19/2023 [...] abd pain noted Acute magi rgic reaction 270669254 T78.40XA Seen in ERTreated with steroids, now is doing well Chronic ki dney disease 653512481 N18.9 On calcitriol On losartan Sees Dr Hinson IJ Bilateral hip joint pain 9386108056 3284603 M25.551 M25.552 Marcus Walker PA 01/01/2024 Adult heal th examination 490763058 Z00.00 Screening for disorder 785075827 Z13.9 Spasm 27313863 R25.2 Screening for malignant neoplasm of prostate 541076806 Z12.5 [id number] Naila albright MD [facility] [place] [address] [facility] [place] [address] 05/26/2024 16:14:38 05/26/2024 17:25:00 Screening - NAD 786780591 Z13.9 C-scope: 05/02/2023 , Dr Dickson next [...] 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 986950735 E11.9 On metformin ER 500mg bidOn Farxiga 10mg daily but was not taking d/t Carson Jardiance 10mg daily Is adamant that he does not want to start on any insulin, states that he also was not very compliant with the metforminH e has be told to take his meds on scheduleNo t on olmesartan Get labs Penile candidiasis 51634 8000 B37.49 No more rash noted, he is using his nystatin-t rimacinolo ne cream and states that the rash is cleared up now Hyperlipidemia 54356296 E78.5 On ASAOn atorvastat in 40mg daily Not on rosuvastat in 40mg dailyGet labs Chronic ob structive pulmonary disease 38764031 J44.9 On albuterolO n HHNsOn trelegy as per d/c from [facility] 05/14/2024 Needs to keep apt with Dr Suarez!Today 05/26/2024 : Severe SOB and YAN, at this, he was referred to ER, 911 ambulance called and [facility] Carotid ar angel stenosis 91157034 I65.29 S/p stent in 03/09On ASANot on plavixDr Bette [facility] 02/21/2024 , next in 6 months Restless legs 66084669 G 25.81 Not on requipOn lyrica 75mg in am and [address] Riojas well Ex-cigarette smoker 2810 98080 Z87.891 LDCT 09/21/2022 Get US AAA done as AAA 04/04/2023 was non diagnostic d/t bowel gas US AAA 09/18/2023 : Neg Coronary arteriosclerosis 54272008 I25.10 CAD noted On losartan 50mg daily Dr Sravan Hodges chlorthali done 25mg dailyDr Bette 02/20/2023 Transient cerebral ischemia 008801081 G45.9 CT Angio: 02/28/2023 : High grade stenosis, R ICA, s/p stent He does see Dr Schumacher his neurologis t, get last OV note S/p hospitaliz ation, does very well now, no residual symptoms at this timeOn ASANot on plavixNot on atorvastat in On rosuvastat in 40mg daily Liver enzy mes level above reference range 766506025 R74.8 ALP 128 03/28/2023 Get labs and US liver Addendum: 12/07/23US liver 12/03/2023 : Hepatic steatosis, triage notified Proteinuria 84102574 R80 .9 US kidney 05/25/2023 : Dr Sravan OTERO Pain of ri ght knee joint 7159646414 16530 M25.561 MRI R knee: 06/07/2023 : Dr Lemon erred to Dr Hernandez Male hypogonadism 464650 06 E29.1 get labs Serum shane min B12 below reference range 099388239 R79.89 Vitamin D deficiency 347 07736 E55.9 Get labs Melendez's esophagus 3029 30780 K22.70 On omeprazole 05/02/2023 : EGD Tonja eds a follow up with GI EGD 01/04/2024 : 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 Addendum: 04/03/2024 :See case, needs to get another EGD, he was notified Chronic pain 68029129 G8 9.29 Referred to pain management 11/29/2023 ,Advised not to take any NSAIDs d/t CAD and CKD issuesOK to refill his methocarba mol to take as needed in very limited quantities , if he needs more see pain management Abdominal pain 62840644 R10.9 Seen in the ER on 09/19/2023 [...] : Case sent Acute magi rgic reaction 371559587 T78.40XA Seen in ERTreated with steroids, now is doing well Chronic ki dney disease 905590214 N18.9 On calcitriol On chlorthali done 25mg dailyOn losartan 50mg daily Sees Dr Sravan OTERO Bilateral hip joint pain 0220518357 8547159 M25.551 M25.552 Marcus ADAMS 01/01/2024 Screening for malignant neoplasm of prostate 579462949 Z12.5 Transition of care 77722 26932 105 Z75.8 [id number] Naila albright MD [facility] [place] [address] [place] [address] 06/04/2024 14:22:04 06/04/2024 15:03:41 Screening - NAD 046005162 Z13.9 C-scope: 05/02/2023 , Dr Dickson next [...] 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 468457039 E11.9 On metformin ER 500mg bidOn Farxiga 10mg daily but was not taking d/t Carson Jardiance 10mg dailyOn lantus 10U at bedtime Not on olmesartan Get labs Penile candidiasis 71871 8000 B37.49 No more rash noted, he is using his nystatin-t rimacinolo ne cream and states that the rash is cleared up now Hyperlipidemia 19961928 E78.5 On ASAOn atorvastat in 40mg daily Not on rosuvastat in 40mg dailyGet labs Chronic ob structive pulmonary disease 51135060 J44.9 On albuterolO n HHNsOn trelegy Needs to keep apt with Dr Suarez!Today 05/26/2024 : Severe SOB and YAN, at this, he was referred to ER, 911 ambulance called and [facility] OV 06/04/2024 :Dr Suarez 06/04/2024 , keep apts with pulmonary Carotid ar angel stenosis 15900871 I65.29 S/p stent in 03/09On ASANot on plavixDr Bette [facility] 02/21/2024 , next in 6 months Restless legs 32172039 G 25.81 Not on requipOn lyrica 75mg in am and [address] Riojas well Ex-cigarette smoker 2810 30410 Z87.891 LDCT 09/21/2022 Get US AAA done as US AAA 04/04/2023 was non diagnostic d/t bowel gas US AAA 09/18/2023 : Neg Coronary arteriosclerosis 19613688 I25.10 CAD noted On losartan 50mg daily Dr Hinson IJOn chlorthali done 25mg dailyOn metoprolol ER 50mg dailyDr Bette 02/20/2023 Transient cerebral ischemia 040721938 G45.9 CT Angio: 02/28/2023 : High grade stenosis, R ICA, s/p stent He does see Dr Schumacher his neurologis t, get last OV note S/p hospitaliz ation, does very well now, no residual symptoms at this timeOn ASANot on plavixNot on atorvastat in On rosuvastat in 40mg daily Liver enzy mes level above reference range 664611834 R74.8 ALP 128 03/28/2023 Get labs and US liver Addendum: 12/07/23US liver 12/03/2023 : Hepatic steatosis, triage notified Proteinuria 94482422 R80 .9 US kidney 05/25/2023 : Dr Sravan OTERO Pain of ri ght knee joint 0210034977 89117 M25.561 MRI R knee: 06/07/2023 : Dr Lemon erred to Dr Hernandez Male hypogonadism 759336 06 E29.1 Get labs Serum shane min B12 below reference range 874821293 R79.89 Vitamin D deficiency 347 73125 E55.9 Get labs Melendez's esophagus 3029 37707 K22.70 On omeprazole 05/02/2023 : EGD Tonja eds a follow up with GI EGD 01/04/2024 : 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 Addendum: 04/03/2024 :See case, needs to get another EGD, he was notified Chronic pain 27198131 G8 9.29 Referred to pain management 11/29/2023 ,Advised not to take any NSAIDs d/t CAD and CKD issuesOK to refill his methocarba mol to take as needed in very limited quantities , if he needs more see pain management Abdominal pain 54185352 R10.9 Seen in the ER on 09/19/2023 [...] Does well now Acute magi rgic reaction 740014409 T78.40XA Seen in ERTreated with steroids, now is doing well Chronic ki dney disease 467396392 N18.9 On calcitriol On chlorthali done 25mg dailyOn losartan 50mg daily Sees Dr Hinson IJ Bilateral hip joint pain 9896909244 7971203 M25.551 M25.552 Marcus ADAMS 01/01/2024 Screening for malignant neoplasm of prostate 775619352 Z12.5 Transition of care 71155 32580 105 Z75.8 Pneumonia 308393020 J18. 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 398725389 E11.9 On metformin ER 500mg bidOn Farxiga [...] Not on olmesartan Get labs Penile candidiasis 67699 8000 B37.49 No more rash noted, he is using his nystatin-t rimacinolo ne cream and states that the rash is cleared up now Hyperlipidemia 92473605 E78.5 On ASAOn atorvastat in 40mg daily Not on rosuvastat in 40mg dailyGet labs Chronic ob structive pulmonary disease 80034164 J44.9 On albuterolO n HHNsOn trelegy Needs to keep apt with Dr Suarez!Today 05/26/2024 : Severe SOB and YAN, at this, he was referred to ER, 911 ambulance called and [facility] OV 06/04/2024 :Dr Suarez 06/04/2024 , [...] f/u on 07/08/2024 Carotid ar angel stenosis 42274807 I65.29 S/p stent in 03/09On ASANot on plavixDr Bette [facility] 02/21/2024 , next in 6 months Restless legs 42971903 G 25.81 Not on requipOn lyrica 75mg in am and [address] Riojas well Ex-cigarette smoker 2810 43873 Z87.891 LDCT 09/21/2022 Get US AAA done as US AAA 04/04/2023 was non diagnostic d/t bowel gas US AAA 09/18/2023 : Neg Coronary arteriosclerosis 36909537 I25.10 CAD noted On losartan 50mg daily Dr Sravan OTEROOn chlorthali done 25mg dailyOn metoprolol ER 50mg dailyDr Bette 02/20/2023 Transient cerebral ischemia 524339981 G45.9 CT Angio: 02/28/2023 : High grade stenosis, R ICA, s/p stent He does see Dr Schumacher his neurologis t, get last OV note S/p hospitaliz ation, does very well now, no residual symptoms at this timeOn ASANot on plavixNot on atorvastat in On rosuvastat in 40mg daily Liver enzy mes level above reference range 646831408 R74.8 ALP 128 03/28/2023 Get labs and US liver Addendum: 12/07/23US liver 12/03/2023 : Hepatic steatosis, triage notified Proteinuria 64251988 R80 .9 US kidney 05/25/2023 : Dr Hinson IJ Pain of ri ght knee joint 6214143099 64250 M25.561 MRI R knee: 06/07/2023 : Dr Lemon erred to Dr Hernandez Male hypogonadism 008793 06 E29.1 Get labs Serum shane min B12 below reference range 195984788 R79.89 Vitamin D deficiency 347 94873 E55.9 Get labs Melendez's esophagus 3029 60252 K22.70 On omeprazole 05/02/2023 : EGD BarrettsNe eds a follow up with GI EGD 01/04/2024 : 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 Addendum: 04/03/2024 :See case, needs to get another EGD, he was notified Chronic pain 27247532 G8 9.29 Referred to pain management 11/29/2023 ,Advised not to take any NSAIDs d/t CAD and CKD issuesOK to refill his methocarba mol to take as needed in very limited quantities , if he needs more see pain management Abdominal pain 60137199 R10.9 Seen in the ER on 09/19/2023 [...] Does well now Acute magi rgic reaction 095642532 T78.40XA Seen in ERTreated with steroids, now is doing well Chronic ki dney disease 301136648 N18.9 On calcitriol On chlorthali done 25mg dailyOn losartan 50mg daily Sees Dr Sravan OTERO Bilateral hip joint pain 1180622582 5342055 M25.551 M25.552 Marcus ADAMS 01/01/2024 Pneumonia 370296302 J18. 9 S/p d/c from [facility] 05/30/2024 Started on Lantus 10U q hsCBC: 05/30/2024 CMP: 05/30/2024 : BUN 33, Gluc 218 [id number] Duncan Suarez MD [facility] [address] [place] [address] 07/08/2024 16:41:56 07/09/2024 11:52:16 Solitary nodule of lung 173860255 R91.1 Mild chron ic obstructive pulmonary disease 972576824 J44.9 Posterior rhinorrhea 758 75381 R09.82 [id number] Bailey Hernandez MD [facility] [place] [address] [place] [address] 07/16/2024 10:31:14 07/16/2024 11:32:17 Pain of right knee joint 4293824447 48491 M25.872 [id number] Duncan Suarez MD [facility] [place] [address] [place] [address] 08/27/2024 08:36:07 08/27/2024 16:32:18 Solitary nodule of lung 464363620 R91.1 Mild chron ic obstructive pulmonary disease 721765610 J44.9 Posterior rhinorrhea 758 55752 R09.82 Dysphonia 41702383 R49.9 [id number] Naila albright MD [facility] [address] [facility], [facility] [address] [place] [address] 10/07/2024 11:44:35 10/07/2024 12:32:19 Screening - NAD 922046430 Z13.9 C-scope: 05/02/2023 , Dr Randolph navarro [...] 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 882007592 E11.9 On metformin ER 500mg bidNot on [...] Not on olmesartan Get labs Penile candidiasis 15590 8000 B37.49 No more rash noted, he is using his nystatin-t rimacinolo ne cream and states that the rash is cleared up now Hyperlipidemia 19864597 E78.5 On ASAOn atorvastat in 40mg daily Not on rosuvastat in 40mg dailyGet labs Chronic ob structive pulmonary disease 06721578 J44.9 On albuterolO n HHNsOn trelegy Needs to keep apt with Dr Suarez!Today 05/26/2024 : Severe SOB and YAN, at this, he was referred to ER, 911 ambulance called and [facility] OV 06/04/2024 :Dr Suarez 06/04/2024 , [...] 10/07/2024 :On albuterolO n anoroOn ipratropiu mOn trelegyDr Suarez last 08/27/2024 , was to see ENT Carotid ar angel stenosis 70591251 I65.29 S/p stent in 03/09On ASANot on plavixDr Bette [facility] 02/21/2024 , next in 6 months Restless legs 72982165 G 25.81 Not on requipNot on lyrica 75mg in am and [address] Riojas well Ex-cigarette smoker 2810 41917 Z87.891 LDCT 09/21/2022 Get US AAA done as US AAA 04/04/2023 was non diagnostic d/t bowel gas US AAA 09/18/2023 : Neg Coronary arteriosclerosis 44671699 I25.10 CAD noted On losartan 50mg daily Dr Sravan palma done 25mg dailyOn metoprolol ER 50mg dailyDr Bette 02/20/2023 Referred 10/07/2024 Transient cerebral ischemia 550398092 G45.9 CT Angio: 02/28/2023 : High grade stenosis, R ICA, s/p stent He does see Dr Schumacher his neurologis t, get last OV note S/p hospitaliz ation, does very well now, no residual symptoms at this timeOn ASANot on plavixNot on atorvastat in On rosuvastat in 40mg daily Liver enzy mes level above reference range 344104690 R74.8 ALP 128 03/28/2023 Get labs and US liver Addendum: 12/07/23US liver 12/03/2023 : Hepatic steatosis, triage notified Proteinuria 59534156 R80 .9 US kidney 05/25/2023 : Dr Hinson IJ Pain of ri ght knee joint 7669640166 62316 M25.561 MRI R knee: 06/07/2023 : Dr Lemon erred to Dr Hernandez Male hypogonadism 170867 06 E29.1 Get labs Serum shane min B12 below reference range 498707711 R79.89 Vitamin D deficiency 347 00458 E55.9 Get labs Melendez's esophagus 3029 66055 K22.70 On omeprazole 05/02/2023 : EGD Tonja eds a follow up with GI EGD 01/04/2024 : 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 Addendum: 04/03/2024 :See case, needs to get another EGD, he was notified Chronic pain 67295668 G8 9.29 Referred to pain management 11/29/2023 ,Advised not to take any NSAIDs d/t CAD and CKD issuesOK to refill his methocarba mol to take as needed in very limited quantities , if he needs more see pain management Abdominal pain 20913396 R10.9 Seen in the ER on 09/19/2023 [...] Does well now Acute magi rgic reaction 301216634 T78.40XA Seen in ERTreated with steroids, now is doing well Chronic ki dney disease 050802108 N18.9 On calcitriol On chlorthali done 25mg dailyOn losartan 50mg daily Sees Dr Hinson IJ Bilateral hip joint pain 6966860180 2967275 M25.551 M25.552 Marcus ADAMS 01/01/2024 Dysphonia 54941458 R49.9 Was referred to ENT on 08/27/[address] Suarez's note Pain of le ft shoulder joint 6561225183 5684112 M25.512 Slipped and fell on ice 10 days ago, unable to lift L shoulder, s/p ER visit at [facility] ll start on meloxicam and refer to ortho [id number] Bailey Hernandez MD [facility] [place] 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 672243351 E11.9 On metformin ER 500mg bidNot on [...] Not on olmesartan Get labs Penile candidiasis 85798 8000 B37.49 On nystatin-t rimacinolo ne cream as needed Hyperlipidemia 40260227 E78.5 On ASAOn atorvastat in 40mg daily Not on rosuvastat in 40mg dailyGet labs Chronic ob structive pulmonary disease 80102294 J44.9 On albuterolO n HHNsOn trelegy Needs to keep apt with Dr Suarez!Today 05/26/2024 : Severe SOB and YAN, at this, he was referred to ER, 911 ambulance called and [facility] OV 06/04/2024 :Dr Suarez 06/04/2024 , [...] 10/07/2024 :On albuterolO n anoroOn ipratropiu mOn trelegyDr Suarez last 08/27/2024 , was to see ENT OV 11/20/2024 :On albuterolO n anoroOn ipratropiu mOn treleDc Suarez last 08/27/[address] Mcneal last OV 09/30/2024 , next apt on 11/25/2024 Carotid ar angel stenosis 27226214 I65.29 S/p stent in ASANot on plavixDr Bette SL 02/21/2024 , next in 6 monthsDr Bette [facility] 08/11/2024 , f/u in 6 weeks and was to get US renal artery Restless legs 65684949 G 25.81 Not on requipNot on lyrica 75mg in am and [address] NemaniDoes well Ex-cigarette smoker 2810 31474 Z87.891 LDCT 09/21/2022 Get US AAA done as US AAA 04/04/2023 was non diagnostic d/t bowel gas US AAA 09/18/2023 : Neg Coronary arteriosclerosis 13552342 I25.10 CAD noted On losartan 50mg daily Dr Sravan OTERO, is not taking this as per his historyOn chlorthali done 25mg dailyOn metoprolol ER 50mg daily, refilled 11/20/2024 , was not takingDr Bette 02/20/2023 Referred 10/07/2024 , 11/20/2024 Keep BP Transient cerebral ischemia 992133674 G45.9 CT Angio: 02/28/2023 : High grade stenosis, R ICA, s/p stent He does see Dr Schumacher his neurologis t, get last OV note S/p hospitaliz ation, does very well now, no residual symptoms at this timeOn ASANot on plavixOn atorvastat in renewed 11/20/2024 Not on rosuvastat in 40mg daily Liver enzy mes level above reference range 058355217 R74.8 ALP 128 03/28/2023 Get labs and US liver Addendum: 12/07/23US liver 12/03/2023 : Hepatic steatosis, triage notified Proteinuria [id number] R80 .9 US kidney 05/25/2023 : Dr Sravan OTERO Pain of ri ght knee joint [id number] 70372 M25.561 MRI R knee: 06/07/2023 : Dr Wilkins Male hypogonadism 170471 06 E29.1 Get labs Serum shane min B12 below reference range 629839557 R79.89 Vitamin D deficiency 347 14750 E55.9 Get labs Melendez's esophagus 3029 75749 K22.70 On omeprazole 05/02/2023 : EGD BarrettsNe eds a follow up with GI EGD 01/04/2024 : 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 Addendum: 04/03/2024 :See case, needs to get another EGD, he was notified Chronic pain 26652537 G8 9.29 Referred to pain management 11/29/2023 ,Advised not to take any NSAIDs d/t CAD and CKD issuesOK to refill his methocarba mol to take as needed in very limited quantities , if he needs more see pain management Abdominal pain 01466154 R10.9 Seen in the ER on 09/19/2023 [...] Does well now Acute magi rgic reaction 490165716 T78.40XA Seen in ERTreated with steroids, now is doing well Chronic ki dney disease 636019673 N18.9 On calcitriol On chlorthali done 25mg dailyOn losartan 50mg daily Sees Dr Sravan OTERO Bilateral hip joint pain [id number] 8027815 M25.551 M25.552 Marcus ADAMS 01/01/2024 Dysphonia 19641054 R49.9 Was referred to ENT on 08/27/[address] Suarez's note Pain of le ft shoulder joint [id number] 0914448 M25.512 Slipped and fell on ice 10 days ago, unable to lift L shoulder[facility] OV 11/20/2024 :Advised to not take NSAIDs d/t his BPGet an apt with Dr Wilkins now as he does not want to see Dr Hernandez Addendum: 01/01/2025 :Needs to get cardiac clearance for surgical procedure by Dr Wilkins Addendum: 01/06/2025 :Cleared for surgery as per Dr Dr Amos 01/06/2024 He will remain a moderate risk for this procedure [id number] Jaycee Chaparro PA-C [facility] [place] [address] [place] [id number] 12/03/2024 14:47:58 12/03/2024 16:19:34 Pain of left shoulder joint 8204125407 8018579 M25.512 Health Concerns Section Related Observation LastModified by Organization Detai ls LastModified Time None Recorded Concern Status LastModified by Organization Details LastModified Time None Recorded Advance Directives Directive Y: Patient stated he needs t o update since . Recommended working with an prosecuting attorney. Payers Encounter Date Sequence Insurance Name Policy Number Policy Santana Covered Member ID Santana Member ID Guarantor Name 08/27/2024 1 [facility] - MEDICARE COMPLETE - CHOICE PLAN 2 (MEDICARE REPLACEMENT REGIONAL PPO) [id number] Navid Rodríguez [id number] Navid Rodríguez 10/07/2024 1 [facility] - MEDICARE COMPLETE - CHOICE PLAN 2 (MEDICARE REPLACEMENT REGIONAL PPO) [id number] Navid Rodríguez [id number] Navid Rodríguez 10/08/2024 1 [facility] - MEDICARE COMPLETE - CHOICE PLAN 2 (MEDICARE REPLACEMENT REGIONAL PPO) [id number] Navid Rodríguez [id number] Navid Rodríguez 11/20/2024 1 [facility] - MEDICARE COMPLETE - CHOICE PLAN 2 (MEDICARE REPLACEMENT REGIONAL PPO) [id number] Navid Rodríguez [id number] Navid Rodríguez 12/03/2024 1 [facility] - MEDICARE COMPLETE - CHOICE PLAN 2 (MEDICARE REPLACEMENT REGIONAL PPO) [id number] Navid Rodríguez [id number] Navid Rodríguez Notes Date Note Type Note Provider Name and Address Organization Details Recorded Time 08/27/2024 text/html Primary care/Referring provider: Naila Moreno MD CC: I have hoarseness of voice and I could not sing in the halfway. Patient is here to go over his mild COPD management. Initial development of shortness of breath: 2011Duration of shortness of breath: 13 yearsCondition of shortness of breath: stableTiming of shortness of breath: morningFrequency: up to 3 times a dayLimits activities: yesAggravating factors: walking, doing yard workAlleviating factors: rest Modified [employer] [place] (mMRC) Dyspnea Scale - Grade 1Grade 0 [...] needed since lbuterol HFA as needed since uoneb since 2016 Spiriva Handihaler once daily 1615-4179 Symbicort HFA 160/4.5 mcg 2 puffs BID dvair 250/50 mcg 1 inhalation BID 2021 onlyTrelegy Ellipta 200/62.5/25 mcg 1 inhalation daily 09/2022 -> 06/2024Trelegy Ellipta 100/62.5/25 mcg 1 inhalation daily since 06/2024 Other symptoms:Drooling: yesDysarthria: noNeck pain: noOdynophagia: noDysphagia: noWeak mastication: noFacial weakness: noNasal speech: noProtruding tongue: noProductive cough: yes, greenish phlegmWheezing: yesChest tightness: yesOrthopnea: noFrequent throat clearing or swallowing: yesPalpitations: noHeartburn: yesEdema: no Environmental exposures:Nicotine smoke: 1 ppd 5305-2166 (quit 12 years in between) = 41 [...] moderate chance of dozing. Duncan Suarez MD [address] [facility] [place], [address], [place], [address], [place] [facility] 08/27/2024 09:34:58 10/07/2024 text/html OV 03/28/2023: H ere to establish carePast Hx:HLDCOPDDMIITIARevi ewed social family and surgical historyHere to discuss above, admitted to [facility] on 02/28/2023 for TIA with [...] for UTI, seen in the ER at [facility] 09/24/2023, treated with antibiotic and also did [...] OV 05/26/2024: Here post hosp, d/c from [facility] 05/14/2024 for SOB, today very SOB and has ongoing cough, he is extremely fatigued, c/o wheezing also, states that he is worse since his d/c from [facility] on 05/14/2024 OV 06/04/2024: Here for his [...] he did see Dr Daniela Moreno MD [address] [place] [address], [address], [place], [address], [facility] 10/10/2024 11:49:03 11/20/2024 text/html OV 03/28/2023: H ere to establish carePast Hx:HLDCOPDDMIITIARevi ewed social family and surgical historyHere to discuss above, admitted to [facility] on 02/28/2023 for TIA with [...] for UTI, seen in the ER at [facility] 09/24/2023, treated with antibiotic and also did [...] OV 05/26/2024: Here post hosp, d/c from [facility] 05/14/2024 for SOB, today very SOB and has ongoing cough, he is extremely fatigued, c/o wheezing also, states that he is worse since his d/c from [facility] on 05/14/2024 OV 06/04/2024: Here for his [...] doing well today, he did see Dr Suarez OV 11/20/2024: Here for his f/u apt, he has seen Dr Hernandez but still has shoulder pain Naila Moreno MD [address] [place] [address], [address], [place], [address], [place] - [facility] 01/06/2025 14:51:30
--- OUTSIDE RECORDS SUMMARY | 2025-01-09 16:27 | XMS_ITS ---
Author Organization [facility] Address [address] [address] [place] [address] Care Team Providers Care Iron Erector Name Role Phone HinsonHemalathaWoen Unavailable [phone] MEDICATIONS Medication SIG (Take, Route, Frequency, Duration) Notes Start Date End Date Status Losartan Potassium 50 MG 1 tablet Orally Once a day for 90 05/30/2023 Active SOCIAL HISTORY Sex Assigned At : Social History Observation Description Sex Assigned At Male Encounters Encounter Location Date Provider Diagnosis [place] [facility] [address] [facility] [address] [place] [address] 08/01/2024 wOen Hinson Chronic kidney disease, stage 2 (mild) [...] * CRISS CALERODOB: [birth year] (74 yo M)Acc No.[id number]:08/01/2024 Progress Notes Patient: CRISS CALERO Provider: MD JOSÉ MIGUEL, F.A.C.P, F.A.S.N. :1950 Age:74 Y Sex:Male Date:08/01/2024 Address:[address] [place] [address] Subjective: * Chief Complaints: * * Medical [...] Treatment: * Billing Information: * Visit Code: 27053 Office Visit, Est Pt., Level 4. * Procedure Codes: * Sign off status: Pending * Provider: MD JOSÉ MIGUEL, F.A.C.P, F.A.S.N. Date: 08/01/2024
--- OUTSIDE RECORDS SUMMARY | 2025-01-09 16:28 | XMS_ITS | Clinical Summary ---
Author Organization [facility] Address [address] [place] [address] Care Team Providers Care Support Architect Name Role Phone Unavailable Primary Care Provider Unavailabl e Source Comments [facility],non-owned Affiliates and Associated Physician Practices is amultiple site organization consisting of ambulatory clinics and hospital sitesin [place], [place] and [place]. This disclosure is being madepursuant to the Care Everywhere program and may not contain all information available regarding this patient. Last updated 18.[facility] Allergies No known active allergies Medications * Be aware that medications may not be up to date on this document. Alwaysverify current medications with the patient. rOPINIRole (Requip) 0.5 MG tabletIndicatio ns:Restless Leg Syndrome Take 1 (one) tablet by mouth at bedtime Reasons: Restless Leg Syndrome Active albuterol (Proventil; Ventolin) 2 MG/5ML syrupIndication s:COPD Take 6.25 mL by mouth 3 times [...] Start on 03/09/2023 120 tablet 03/08/2023 Active hydroCHLOROthia zide (Hydrodiuril) 25 MG tablet Take 1 (one) [...] Date Recorded PHQ2 TOTAL SCORE 0 03/07/2023 [facility] - Occupational Stress [...] place to sleep or slept in a snf (including now)? No 03/03/2023 Sex and Gender Information Value Date Recorded Sex Assigned at Not on file Legal Sex Male 9:33 PM CDT Gender Identity Not on file Sexual Orientation [...] AAA SCREENING 2017 COVID-19 VACCINE (3 - season) 2024 01/27/2021, 12/26/2020 DEPRESSION SCREENING 09/17/2024 03/22/2023 MEDICARE AWV CALENDAR YEAR 2024 INFLUENZA VACCINE (Season Ended) 2025 08/19/2019, 07/24/2018, 08/04/2015, Additional history exists Respiratory Syncytial Virus (RSV) Vaccine Pt: or [...] this topic Medical Devices Implanted Type Area Baller Tender Device Identifier Shelf Expiration Date Model / Serial / Lot Stent Enroute Uber Flx 7mm .065in 40mm Implanted:Qty : 1 on 03/05/2023 by Betty Craen DO at [facility] Stent - Vascular Right: Arterial [employer] [facility] 04/16/2025 [id number] / / [id number] Description:IMPLANTED RIGHT CAROTID ARTERY Insurance [facility] MANAGED MEDICARE ADV Advance Directives * Full Code (Latest Code Status on File) Date Activated Date Inactivated Comments 03/03/2023 5:15 AM 03/08/2023 8:02 PM
--- OUTSIDE RECORDS SUMMARY | 2025-01-09 16:28 | XMS_ITS | Patient Health Record ---
Author Organization [facility] Address [address] [address] [place] [address] Care Team Providers Care Deputy Director Name Role Phone HinsonHemalathaOwen Unavailable [phone] REASON FOR REFERRAL No Information MEDICATIONS Medication [...] Hyperglycemia due to type 2 diabetes mellitus (326471245286155 ) Problem Chronic obstructive pulmonary disease with (acute) exacerbation (J44.1) Active confirmed Acute exacerbation of chronic obstructive airways disease (467595208) Problem Chronic kidney disease, stage 2 (mild) (N18.2) Active confirmed Chronic kidne y disease stage 2 (024488293) Problem Other proteinuria (R80.8) Active confirmed Proteinuria (18630116) Problem Essential hypertension (I10) Active confirmed Essential hypertension (38170179) Encounters Encounter Location Date Provider Diagnosis [place] [facility] [address] [address] 01/23/2024 Owen Hinson Chronic kidney disease, stage 2 (mild) N18.2 ; Other proteinuria R80.8 ; Type 2 diabetes mellitus with hyperglycemia E11.65 ; Chronic obstructive pulmonary disease with (acute) exacerbation J44.1 and Essential hypertension I10 [place] [facility] [address] [facility] [address] [place] [address] 08/01/2024 Owen Hinson Chronic kidney disease, stage 2 (mild) N18.2 ; Other proteinuria R80.8 ; Type 2 diabetes mellitus with hyperglycemia E11.65 ; Chronic obstructive pulmonary disease with (acute) exacerbation J44.1 and Essential hypertension I10 [place] [facility] [address] [facility] [address] [place] [address] 08/01/2024 Owen Hinson ASSESSMENTS Encounter Date Diagnosis [...]
[2025-01-09 17:23] LABS: Hemoglobin A1C 7.7 % (<5.7)
== END 2025-01-09 16:25 | disposition home or self-care (01) ==
PROVIDERS: PCP Internal Medicine; Visit Provider Orthopaedic Surgery
DX: E11.9 Type 2 diabetes mellitus without complications (principal)
CPT/HCPCS: 36415; 83036

== ENCOUNTER 2025-01-12 15:51 | Outpatient (CLI) | payer MEDICARE, SELFPAY ==
--- NOTE | ~2025-01-12 | US_ITS ---
EXAMINATION: US carotid duplex BI DATE: 01/12/2025 16:38 INDICATION: Carotid occlusion. TECHNIQUE: Grayscale, color Doppler, and pulsed Doppler images of the cervical carotid arteries were obtained. The degree of vessel stenosis is placed in one of the following categories: normal, <50%, 5 0-69%, >=70% but less than near-occlusion, near-occlusion, or total occlusion. Note that percent sten osis relative to normal distal artery lumen diameter is indirectly measured from velocity measurement s as described by Martinez, et al. Radiology 2003; 229:340-346. Notes: Normal: Peak systolic velocity <125 centimeters/sec and no plaque <50%. Peak systolic velocity <125 ( EDV <40; ICA/CCA PSV ratio <2.0; used these factors only a tandem lesions or low cardiac output or co ntralateral disease) 50-69 %: PSV 125-230 (EDV 40-100; ratio 2-4) >= 70% but less than near occlusion: PSV greater than 230 (EDV > 100; ratio> 4.0) Near Occlusion: PSV that is variable; markedly narrowed lumen Occlusion: Absent flow on color/spectral Doppler and no lumen on wyman scale. COMPARISON: None. FINDINGS: RIGHT: The right common carotid artery (CCA) peak systolic velocity (PSV) is 43 cm/s. The right internal car otid artery (ICA) PSV is 68 cm/s. The right ICA end-diastolic velocity (EDV) is 20 cm/s. The right IC A/CCA PSV ratio is 1.6. The external carotid artery (ECA) PSV is 254 cm/s. There is antegrade flow in the right vertebral artery. LEFT: The left CCA PSV is 90 cm/s. The left ICA PSV is 90 cm/s. The left ICA EDV is 28 cm/s. The left ICA/C CA PSV ratio is 1.0. The ECA PSV is 140 cm/s. There is antegrade flow in the left vertebral artery. IMPRESSION: 1. Less than 50% stenosis in the right internal carotid artery by sonographic criteria. 2. Less than 50% stenosis in the left internal carotid artery by sonographic criteria. Reviewed, dictated and finalized at location A. IMPRESSION: 1. Less than 50% stenosis in the right internal carotid artery by sonographic afia giles. 2. Less than 50% stenosis in the left internal carotid artery by sonographic jill lyles.
--- OUTSIDE RECORDS SUMMARY | 2025-01-12 17:53 | XMS_ITS | Clinical Summary ---
Author Organization [facility] Facility Address [address] [facility] [address] [address] Care Team Providers Care Home Appliances Mechanic Name Role Phone Naila Moreno MD Primary Care Provider [phone] Social History Tobacco Use Types Packs/Day Years [...] patient's age to complete this topic Insurance [facility] Medicare Care Teams Home Appliances Mechanic Relationship Specialty Start Date End Date Naila Moreno MD [address] [place] [address] PCP - General Internal Medicine 11/30/23
--- OUTSIDE RECORDS SUMMARY | 2025-01-12 17:54 | XMS_ITS | Data Portability ---
Author Organization [facility], Main Office Address [address] [place] [address] Care Team Providers Care Neuropsychology Medical Consultant Name Role Phone CAITLIN MORENO Primary Care Provider [phone] CAITLIN MORENO Referring Provider CROW BALDERRAMA Diet Technician Registered DUNCAN SUAREZ Substance Abuse Counselor MIGEL AMOS [employer] Teacher JEROD FLETCHER General Surgeon BAILEY HERNANDEZ Orthopedic Surgeon [phone] Assessment Encounter Date Assessment Date Assessment LastModified by Organization Details LastModified Time 08/27/2024 08/27/2024 Assessment: Dysphonia Postnasal drip Nicotine smoke: 1 ppd 1969-2901 (quit 12 years in between) = 41 pack years Mild COPD RUL nodule Hypertension Plan: The following were reviewed and explained to the patient: Chest CT 09/21/22 7 mm RUL nodule Chest CT 03/07/24 no acute abnormality Chest CT 05/13/24 5 mm RUL nodule [facility] hospitalization 05/13/24 - 05/14/24 discharged on azithromycin, prednisone, Trelegy and albuterol inhalers [facility] hospitalization 05/26/24 - 05/30/24 Lab data 06/04/24 [...] positive Maribel. Positive Neer and Brandon. Positive [place]. X-rays of the shoulder were reviewed, demonstrating [...] Positive Maribel. Positive Neer and Brandon. Positive [place]. Motor: 5/5 strength. Limited by pain Sensation: [...] Details Appointments Any 15 2024 10:30A M Caitlin pompa MD Not available Not available Not available Lab testoster one, free + total, serum 2024 025 [email or web address] [facility], [place], [facility] - Outpatient Lab, [address] [place] [address], [address], 11/20/2024 12:46:04 lipid panel, serum 2024 025 [email or web address] Not available 11/20/2024 12:46:03 CMP, serum or plasma 2024 025 PAZ Not available 12/16/2024 20:02:46 CBC w/ auto diff 2024 025 PAZ Not available 12/16/2024 20:02:46 TSH + free T4, serum 2024 025 [email or web address] Not available 11/20/2024 12:46:04 vitamin D, 25-hydrox y, total, serum 2024 025 [email or web address] [facility], [place], [facility] - Outpatient Lab, [address] [place], [address], 11/20/2024 12:46:04 microalbu min, urine 2024 025 [email or web address] Not available 11/20/2024 12:46:02 glycohemo globin, total, blood 2024 025 [email or web address] Not available 11/20/2024 12:46:02 vitamin B12 + folate, serum or blood 2024 025 [email or web address] [facility] Outpatient Lab, [address] [place], [address], 11/20/2024 12:46:04 testoster one, free + total, serum 2024 025 [email or web address] [facility] Outpatient Lab, [address] [place], [address], 10/07/2024 12:29:42 lipid panel, serum 2024 025 [email or web address] Not available 10/07/2024 12:29:40 CMP, serum or plasma 2024 025 [email or web address] Not available 10/07/2024 12:29:41 CBC w/ auto diff 2024 025 [email or web address] Not available 10/07/2024 12:29:41 TSH + free T4, serum 2024 025 [email or web address] Not available 10/07/2024 12:29:41 vitamin D, 25-hydrox y, total, serum 2024 025 [email or web address] [facility] Outpatient Lab, [address] [place], [address], 10/07/2024 12:29:42 microalbu min, urine 2024 025 [email or web address] Not available 10/07/2024 12:29:39 glycohemo globin, total, blood 2024 025 [email or web address] Not available 10/07/2024 12:29:40 vitamin B12 + folate, serum or blood 2024 025 [email or web address] [facility], [place], [facility] - Outpatient Lab, [address] [place], [address], 10/07/2024 12:29:42 gram stain, sputum [email or web address] [place] [address] - Outpatient Lab, [address] [place], [address], 09/04/2024 15:26:10 culture, sputum 2023 024 [facility] Outpatient Lab, [address] [place], [address], 08/28/2024 09:23:[address] referral - Please call patient to schedule an appointme nt. Thank you. 2024 025 NEO Hare MD, [address] [facility], [address], [address], 11/27/2024 11:20:42 nephrolog ist referral - Please call patient to schedule an appointme nt. Thank you. 2024 025 NEO Hinson MD (Nephrology, [address], [address], [place], [address], 11/27/2024 16:30:50 vascular surgeon referral - Please call patient to schedule an appointme nt. Thank you. 2024 025 [place], [address], [address], [place], [address], 11/27/2024 10:45:31 orthopedi c surgeon referral - Please call patient to schedule an appointme nt. Thank you. 2024 025 ATHENAFAX Balbir Claudette, [address], [address], [place], [address], 11/27/2024 10:40:31 gastroent erologist referral - Please call patient to schedule an appointme nt. Thank you. [address] [facility], [address], [address], [place], [address], 12/01/2024 10:10:38 podiatris t referral - Please call patient to schedule an appointme nt. Thank you. 2024 025 PAZ Crow Balderrama DPM, [address] [facility], [address], [place], [address], 12/04/2024 10:59:02 cardiolog ist referral - Please call patient to schedule an appointme nt. Thank you. 2024 025 [email or web address] [place], [address], [address], [place], [address], 12/25/2024 09:41:37 gastroent erologist referral - Please call patient to schedule an appointme nt. Thank you. [address] [facility], [address], [address], [place], [address], 12/01/2024 10:10:37 physical therapist referral - Please schedule pt for L shoulder. Thanks 2024 025 [email or web address] [facility] [place], [address] [facility], [place], [address], 10/12/2024 20:27:32 nephrolog ist referral - Please call patient to schedule an appointme nt. Thank you. 2024 025 [email or web address] Owen Hinson MD (Nephrology, [address], [address], [place], [address], 12/25/2024 09:41:35 orthopedi c surgeon referral 2024 025 [email or web address] Bailey Hernandez MD, [address] [facility], [place], [address], 10/08/2024 17:47:12 orthopedi c surgeon referral - Please call patient to schedule. 2024 025 [email or web address] Bailey Hernandez MD, [address] [facility], [place], [address], 10/08/2024 17:47:11 gastroent erologist referral - Please call patient to schedule an appointme nt. Thank you. 2024 025 kendra Childers MD, [address] [facility], [address], [place], [address], 11/24/2024 17:58:06 cardiolog ist referral 2024 025 [email or web address] [place], [address] [facility], [address], [place], [address], 10/08/2024 17:46:51 gastroent erologist referral - Please call patient to schedule an appointme nt. Thank you. 2024 025 kendra Childers MD, [address] [facility], [address], [place], [address], 12/23/2024 08:40:[address] referral - Please call patient to schedule an appointme nt. Thank you. 2024 025 NEO Hare MD, [address] [facility], [address], [place], [address], 10/23/2024 12:20:31 podiatris t referral 2024 025 [email or web address] Crow Balderrama DPM, [address] [facility], [address], [place], [address], 10/08/2024 17:46:50 ENT surgery referral - Please call patient to schedule. 2023 024 2 Barbara N Rki [employer], [address], [place], [address], 11/25/2024 08:19:42 Procedures injection /aspirati on joint/bur sa (PROC) 2024 025 [email or web address] In-Office Order, Internal Use Only DO Not Attach Compendium DO Not Attach Compendium, Do Not Delete/merge, [id number] 10/08/2024 14:40:14 Surgeries None recorded. Imaging MRI, shoulder, w/o contrast - Please contact pt to schedule apt. Thanks [address], [address], [place], [address], 12/05/2024 19:53:41 Medication Orders Celebrex 200 mg capsule [address] [facility], [address] [place] [address], [address], 12/05/2024 19:53:41 atorvasta tin 40 mg tablet 2024 [facility], [address] [place] [address], [address], 11/20/2024 12:44:48 metoprolo l succinate ER 50 mg tablet,ex tended release 24 hr 2024 [facility], [address] [place], [address], 11/20/2024 12:44:49 bupivacai ne HCl 0.5 % (5 mg/mL) injection solution [address] [facility], [address] [place] [address], [address], 10/12/2024 20:27:32 Kenalog 10 mg/mL suspensio n for injection [address] [facility], [address] [place] [address], [address], 10/12/2024 20:27:32 Mobic 15 mg tablet [address] [facility], [address] [place] [address], [address], 10/12/2024 20:27:32 meloxicam 7.5 mg tablet 2024 025 [facility], [address] [place] [address], [address], 10/07/2024 12:34:00 ipratropi um bromide 42 mcg (0.06 %) nasal spray 2023 024 [facility], [address] [place] [address], [address], 08/27/2024 09:26:59 albuterol sulfate HFA 90 mcg/actua tion aerosol inhaler 2023 024 [facility], [address] [place] [address], [address], 08/27/2024 09:26:55 Anoro Ellipta 62.5 mcg-25 mcg/actua tion powder for inhalatio n 2023 024 [facility], [address] [place] [address], [address], 08/27/2024 09:26:56 Patient TargetsNo targets recorded. Patient Instructions Encounter Date Encounter Id Patient Instructions Last Modified By Organization Details Last Modified Time 10/07/2024 [id number] diabetic eye exam* Not available 10/07/2024 12:29:43 11/20/2024 [id number] diabetic eye exam* [email or web address] Not available 11/20/2024 12:46:05 Reason for Referral ENT Surgery Referral for Dys phonia Please call patient to schedule. Referring Physician: Duncan Suarez, Pulmonary Disease, Encounter Date: 08/27/2024 Diet Technician Registered Referral for Type 2 diabetes mellitus without complication Referring Physician: Caitlin Moreno Internal Medicine, Encounter Date: 10/07/2024 [employer] Special [employer] Teacher Referral for Co ronary arteriosclerosis Referring Physician: Caitlin Moreno Internal Medicine, Encounter Date: 10/07/2024 Neurologist Referral for Tra nsient cerebral ischemia Please call patient to schedule an appointment. Thank you. Referring Physician: Caitlin Moreno Internal Medicine, Encounter Date: 10/07/2024 Foreign Language Instructor Referral for Pr oteinuria Please call patient to schedule an appointment. Thank you. Referring Physician: Caitlin Moreno Internal Medicine, Encounter Date: 10/07/2024 Orthopedic Surgeon Referral for Pain of right knee joint Please call patient to schedule. Referring Physician: Caitlin Moreno Internal Medicine, Encounter Date: 10/07/2024 Senior National Account Manager Referral for Melendez's esophagus Please call patient to schedule an appointment. Thank you. Referring Physician: Caitlin Moreno Internal Medicine, Encounter Date: 10/07/2024 Senior National Account Manager Referral for Liver enzymes level above reference range Please call patient to schedule an appointment. Thank you. Referring Physician: Caitlin Moreno Internal Medicine, Encounter Date: 10/07/2024 Orthopedic Surgeon Referral for Pain of left shoulder joint Referring Physician: Caitlin Moreno Internal Medicine, Encounter Date: 10/07/2024 Physical Therapist Referral for Pain of left shoulder joint L shoulder Please schedule pt for L shoulder. Thanks Referring Physician: Bailey Hernandez, Orthopedic Surgery, Encounter Date: 10/08/2024 Diet Technician Registered Referral for Type 2 diabetes mellitus without complication Please call patient to schedule an appointment. Thank you. Referring Physician: Caitlin Moreno Internal Medicine, Encounter Date: 11/20/2024 [employer] Special [employer] Teacher Referral for Co ronary arteriosclerosis Please call patient to schedule an appointment. Thank you. Referring Physician: Caitlin Moreno Internal Medicine, Encounter Date: 11/20/2024 Neurologist Referral for Tra nsient cerebral ischemia Please call patient to schedule an appointment. Thank you. Referring Physician: Caitlin Moreno Internal Medicine, Encounter Date: 11/20/2024 Foreign Language Instructor Referral for Pr oteinuria Please call patient to schedule an appointment. Thank you. Referring Physician: Caitlin Moreno [facility] Medicine, Encounter Date: 11/20/2024 Senior National Account Manager Referral for Melendez's esophagus Please call patient to schedule an appointment. Thank you. Referring Physician: Caitlin Moreno [facility] Medicine, Encounter Date: 11/20/2024 Senior National Account Manager Referral for Liver enzymes level above reference range Please call patient to schedule an appointment. Thank you. Referring Physician: Caitlin Moreno [facility] Medicine, Encounter Date: 11/20/2024 Orthopedic Surgeon Referral for Pain of left shoulder joint Please call patient to schedule an appointment. Thank you. Referring Physician: Caitlin Moreno [facility] Medicine, Encounter Date: 11/20/2024 Vascular Surgeon Referral fo r Carotid artery stenosis Please call patient to schedule an appointment. Thank you. Referring Physician: Caitlin Moreno [facility] Medicine, Encounter Date: 11/20/2024 Results Created Date Observation Date Name Description Value Unit Range Abnormal Flag Note LastModifiedBy Organization Detail LastModifiedTime 08/27/20 24 08/30/2024 CULTU RE, SPUTU M/LOW ER RESPI RATOR Y culture, sputum/lower respiratory SEE NOTE abnormal CULTU RE, SPUTU M/LOW ER RESPI RATOR Y Micro Numbe r: [id number] Test Statu s: Final Speci men [...] or addit ional testi ng. Not Available [facility] [address] [place], [address], 08/30/2024 09:54:32 08/08/20 24 06/18/2024 compl ete PFT w/ post [facility] hodil ator altagracia metry * No observ ation record ed. BARCODE Not Available 2023 11:25:37 10/01/19 25 10/01/2024 imagi ng/di agnos tic resul t No observ ation record ed. [address], [place], [address], 10/01/2024 21:41:55 12/22/19 25 12/21/2024 imagi ng/di agnos tic resul t No observ ation record ed. [address], [place], [address], 12/21/2024 13:10:41 01/03/20 25 01/02/2025 imagi ng/di agnos tic resul t No observ ation record ed. [facility] [address], [place], [address], 01/02/2025 13:25:36 Result Notes None recorded. Problems Name Problem SNOMED Code Status Onset Date Resolution Date Notes Provider Name and Address Organization Details Recorded Time Carotid artery stenosis 19470286 Active 2022 Not Available [facility] 4 22:24:36 Coronary arteriosc lerosis 96680166 Active 2022 Not Available [facility] 4 22:24:36 Vitamin D deficienc y 68552076 Active 2022 Not Available [facility] 4 22:24:36 Carotid artery stenosis 36598113 Active 2022 Not Available [facility] 4 22:24:36 Male hypogonad ism 96377636 Active 2022 Not Available [facility] 4 22:24:36 Diabetic periphera l neuropath y 970821715 Active 2022 Not Available [facility] 4 22:24:36 Bilateral foot congenita l pes cavus 24253880500 833240 Active 2022 Not Available [facility] 4 22:24:35 Melendez's esophagus 048551388 Active 2022 Not Available [facility] 4 22:24:36 Transient cerebral ischemia 501797192 Active 2023 Caitlin albright MD [address], [address], [place], [address] , [employer] [facility] 4 12:46:26 Serum vitamin B12 below reference range 213914945 Active 2023 Caitlin albright MD [address], [address], [place], [address] , [employer] [facility] 4 12:46:26 Chronic kidney disease 823947450 Active 2023 Caitlin albright MD [address], [address], [place], [address] , [employer] [facility] 4 10:23:58 Osteoarth ritis of right knee joint 63864821818 9100 Active 2023 ANGIE Martinez [address], [address], [place], [address] , [facility] 4 16:55:12 Penile candidias is 017519283 Active 2023 Caitlin albright MD [address], [address], [place], [address] , [facility] 4 14:16:16 Chronic obstructi ve pulmonary disease 53722271 Active 2023 Caitlin albright MD [address], [address], [place], [address] , [facility] 4 14:16:16 Mild chronic obstructi ve pulmonary disease 390214154 Active 2023 Duncan Suarez MD [address], [address], [place], [address] , [facility] 4 16:48:00 Posterior rhinorrhe a 66785298 Active 2023 Duncan Suarez MD [address], [address], [place], [address] , [facility] 4 17:22:34 Dysphonia 36291043 Active 2023 Duncan Suarez MD [address], [address], [place], [address] , [facility] 4 09:26:26 Liver enzymes level above reference range 870840079 Active 2024 Caitlin albright MD [address], [address], [place], [address] , [facility] 5 12:14:26 Proteinur ia 45498468 Active 2024 Caitlin albright MD [address], [address], [place], [address] , [place] [facility] 5 12:14:26 Chronic pain 23447477 Active 2024 Caitlin albright MD [address], [address], [place], [address] , [place] [facility] 5 12:14:26 Type 2 diabetes mellitus without complicat ion 842931707 Active 2024 Caitlin albright MD [address], [address], [place], [address] , [place] [facility] 5 12:14:26 Pain of right knee joint 66974412032 4100 Active 2024 Caitlin albright MD [address], [address], [place], [address] , [place] [facility] 5 12:14:26 Abdominal pain 07904749 Active 2024 Caitlin albright MD [address], [address], [place], [address] , [place] [facility] 5 12:14:26 Pneumonia 463725314 Active 2024 Caitlin albright MD [address], [address], [place], [address] , [place] [facility] 5 12:14:26 Acute allergic reaction 297357389 Active 2024 Caitlin albright MD [address], [address], [place], [address] , [place] [facility] 5 12:14:26 Pain of bilateral hip joints 54313545114 295431 Active 2024 Caitlin albright MD [address], [address], [place], [address] , [place] [facility] 5 12:14:26 Pain of left shoulder joint 10603083178 989377 Active 2024 Caitlin albright MD [address] [facility], [address] [address], [place], [address] , [facility] [address] 5 12:32:15 Chronic back pain 913297766 Active [address] meds from Dr Villatoro Not Available [facility] 4 22:24:35 Impacted cerumen 17645394 Completed Not Available [facility] 3 04:53:49 Gastroeso phageal reflux disease 421807129 Active Not Available [facility] 4 22:24:36 Microalbu minuria 642921600 Active 2021 Not Available [facility] 4 22:24:36 Restless legs 23909255 Active 2017 Not Available [facility] 4 22:24:36 Sinusitis 00633747 Completed Not Available [facility] 3 04:53:50 Solitary nodule of lung 077203036 Active 2022 Not Available [facility] 4 22:24:36 Herpes zoster 0954813 Completed Not Available [facility] 3 04:53:50 Pain of hip region 49155501 Completed Not Available [facility] 3 04:53:50 Dysuria 79124927 Completed Not Available [facility] 3 04:53:50 Hyperlipi demia 90376704 Active Not Available [facility] 4 22:24:36 Essential hypertens ion 77932871 Active Not Available [facility] 4 22:24:36 Diarrhea 99948372 Completed Not Available [facility] 3 04:53:51 Polyp of colon 29159794 Active Not Available [facility] 4 22:24:36 Notes:Medical History: TIA 2 [...] stent 2022 Cholecystectomy 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 Procedures Surgical History Date Name Laterality Status Provider Name and Address Organization Details Recorded Time 10/08/19 25 Ortho - Cortisone Injection completed Bailey Hernandez MD [address], [address], [place], [address], [employer] 10/08/2024 15:44:23 06/04/20 24 Transitional_Car e_Management completed Caitlin Moreno MD [address], [address], [place], [address], [employer] [facility] 06/04/2024 14:34:44 05/26/20 24 Transitional_Car e_Management completed Caitlin Moreno MD [address], [address], [place], [address], [employer] [facility] 05/26/2024 18:46:46 04/03/20 24 Medicare Wellness CPT Code, subsequent completed Sumeet Lai LPN [employer] 04/01/2024 12:41:54 05/02/20 23 Colonoscopy completed LEE Boyd [employer] 05/16/2023 14:33:53 02/01/20 19 Total hip arthroplasty completed Not Available [facility] 11/15/2022 04:43:55 Orthopedic Surgery completed Not Available [facility] 11/15/2022 04:43:55 Orthopedic Surgery completed Not Available [facility] 11/15/2022 04:43:55 Orthopedic Surgery completed Not Available [facility] 11/15/2022 04:43:55 insertion of carotid artery stent completed LEE Boyd [employer] 03/28/2023 14:33:51 Imaging Results Imaging Date Name Status LastModified by Organization Details LastModified Time 06/18/2024 complete PFT w/ post bronchodilator spirometry* completed [facility] Information not available 08/08/2024 11:25:37 10/01/2024 imaging/diagnostic result active [address], [place], [address], 10/01/2024 21:41:55 12/21/2024 imaging/diagnostic result active [facility] [address] [facility] [address], [place], [address], 12/21/2024 13:10:41 01/02/2025 imaging/diagnostic result active [facility] [address], [place], [address], 01/02/2025 13:25:36 Procedure Notes None recorded. Medical [...] mg by injectio n route. [address] [facility]: [id number] Not Available Not Available Not Available amlodipin [...] bromide 42 mcg (0.06 %) nasal spray [place] 1 spray 4 times a day by [...] Updated DateTime 4 162.56 cm 25.3 kg/m2 78960.8 g 98.2 [degF] 81 /min 97 % 97 % Gayle Quintanilla MA [employer] [facility] 4 08:54:56 Date Recorded Heart rate Respiratory rate Systolic blood pressure Diastolic blood pressure Provider Name and Address Organization Details Last Updated DateTime 08/27/2024 81 /min 17 /min 140 mm[Hg] 84 mm[Hg] Duncan jose MD [address] [place] [address], [address], [address] , [facility] [employer] [facility] 08/27/2024 09:17:52 Date Recorded Body height Body mass index (BMI) Body weight Body temperature Heart rate Systolic blood pressure Diastolic blood pressure Provider Name and Address Organization Details Last Updated DateTime 162.56 cm 23.3 kg/m2 05778.5 6 g 97.7 [degF] 78 /min 140 mm[Hg] 80 mm[Hg] LEE Boyd MD [employer] [facility] 11:57:16 Date Recorded Body height Body mass index (BMI) Body weight Provider Name and Address Organization Details Last Updated DateTime 10/08/2024 162.56 cm 23.3 kg/m2 73963.56 g [employer] 10/08/2024 14:27:08 Date Recorded Body height Body mass index (BMI) Body weight Body temperature Heart rate Oxygen saturation Oxygen saturation in Arterial blood by Pulse oximetry Pain severity - 0-10 verbal numeric rating [Score] - Reported Systolic blood pressure Diastolic blood pressure Provider Name and Address Organization Details Last Updated DateTime 162.56 cm 22.8 kg/m2 87143.7 9 g 97.8 [degF] 81 /min 97 % 97 % 10 160 mm[Hg] 82 mm[Hg] Gayle Quintanilla MA [employer] [email or web address] 11:56:05 Date Recorded Body height Body mass index (BMI) Body weight Provider Name and Address Organization Details Last Updated DateTime 12/03/2024 162.56 cm 23.3 kg/m2 26115.56 g Porsche Hu Sofea [email or web address] 12/03/2024 14:53:40 Social History Question Answer Notes LastModified by Organization Details LastModified Time Tobacco Smoking Status Former Smoker quit 02/2023 Mary Coley, LEE g[place], [place] [facility] 03/28/2023 14:32:44 Do You Have An Advance Directive? Yes Patient Stated He Needs To Update Since . Recommended Working With An Strand Galvanizer. MIGRATION.755 [id number] Information not available 11/15/2022 What Is Your Level Of Alcohol Consumption? None MIGRATION.949 [id number] Information not available 11/15/2022 Do You Wear A Helmet When Biking? No Does Not Bike [email or web address] Information not available 04/03/2024 Are You Blind Or Do You Have Difficulty Seeing? No MIGRATION.484 6052286 Information not available 11/15/2022 Is Blood Transfusion Acceptable In An Emergency? Yes [email or web address] Information not available 04/03/2024 What Is Your Level Of Caffeine Consumption? Moderate MIGRATION.433 [id number] Information not available 11/15/2022 How Much Tobacco Do You Chew? None MIGRATION.848 [id number] Information not available 11/15/2022 In The 14 Days Before Symptom Onset, Have You Had Close Contact With A Laboratory-conf irmed COVID-19 While That Case Was Ill? No MIGRATION.444 [id number] Information not available 11/15/2022 In The 14 Days Before Symptom Onset, Have You Had Close Contact With A Person Who Is Under Investigation For COVID-19 While That Person Was Ill? No MIGRATION.519 [id number] Information not available 11/15/2022 Are You Currently Employed? No Information not available 03/28/2023 Are You Deaf Or Do You Have Serious Difficulty Hearing? No MIGRATION.529 3731525 Information not available 11/15/2022 What Type Of Diet Are You Following? REGULAR MIGRATION.404 2351517 Information not available 11/15/2022 Which Illicit Or Recreational Drugs Have You Used? None MIGRATION.042 1753494 Information not available 11/15/2022 What Is The Highest Grade Or Level Of School You Have Completed Or The Highest Degree You Have Received? [id number] Information not available 04/03/2024 Do You Have An Electrostatic Air Filter? No Information not available 08/27/2024 What Is Your Occupation? Retired MIGRATION.183 [id number] Information not available 11/15/2022 How Many Days Of Moderate To Strenuous Exercise, Like A Brisk Walk, Did You Do In The Last 7 Days? 2 [email or web address] Information not available 04/03/2024 On Those Days That You Engage In Moderate To Strenuous Exercise, How Many Minutes, On Average, Do You Exercise? 30 [email or web address] Information not available 04/03/2024 Have You Been Exposed To Chemicals Or Toxins? No No That Aware Of Information not available 08/27/2024 Have There Been Any Changes To Your Family Or Social Situation? No MIGRATION.767 5758322 Information not available 11/15/2022 What Is The Fluoride Status Of Your Home? Unknown MIGRATION.979 3067894 Information not available 11/15/2022 When Did You Quit Smoking? 1-5yearssincelastc igarette [email or web address] Information not available 04/05/2023 Are There Any Guns Present In Your Home? No MIGRATION.090 0183929 Information not available 11/15/2022 Do You Have A Humidifier? No Information not available 08/27/2024 Do You Use Insect Repellent Routinely? No MIGRATION.114 1217868 Information not available 11/15/2022 Where Do You Live? SingleLevelHouse MIGRATION.355 0248745 Information not available 11/15/2022 Presence Of Domestic Violence No [email or web address] Information not available 04/03/2024 Guns Present In The Home? No [email or web address] Information not available 04/03/2024 Are You Able To Care For Yourself? Yes [email or web address] Information not available 04/03/2024 Are You Blind Or Do Yo Have Difficulty Seeing? No [email or web address] Information not available 04/03/2024 Are You Deaf Or Do You Have Serious Difficulty Hearing? No [email or web address] Information not available 04/03/2024 General Stress Level? Low [email or web address] Information not available 04/03/2024 Live Alone Of With Others? With Others Dtr. And Her Family Lives Woth Patient [email or web address] Information not available 04/03/2024 Do You Have A Medical Power Of Strand Galvanizer? No [email or web address] Information not available 04/03/2024 Do You Have Moisture Problems In Your Home? No Information not available 08/27/2024 What Was The Date Of Your Most Recent Tobacco Screening? 11/20/2024 Information not available 11/20/2024 What Is Your Current Pack Years? 30ormorepackyears MIGRATION.668 [id number] Information not available 11/15/2022 Do You Have Any Pets? No 1 Dog 1 Cat [email or web address] Information not available 04/03/2024 What Is Your Relationship Status? MIGRATION.453 [id number] Information not available 11/15/2022 Do You Use Your Seat Belt Or Car Seat Routinely? Yes MIGRATION.930 7270760 Information not available 11/15/2022 Do You Have Smoke And Carbon Monoxide Detectors In Your Home? Yes MIGRATION.530 [id number] Information not available 11/15/2022 At What Age Did You Start Smoking Tobacco? 18 MIGRATION.381 [id number] Information not available 11/15/2022 Are You Passively Exposed To Smoke? No Information not available 04/03/2024 Are There Any Smokers In Your House? No Information not available 04/03/2024 How Much Tobacco Do You Smoke? No Was 1/2 Ppd Information not available 03/28/2023 What Types Of Sporting Activities Do You Participate In? None [email or web address] Information not available 04/03/2024 Do You Feel Stressed (tense, Restless, Nervous, Or Anxious, Or Unable To Sleep At Night)? [id number] MIGRATION.879 [id number] Information not available 11/15/2022 Do You Use Any Illicit Or Recreational Drugs? No MIGRATION.005 2403684 Information not available 11/15/2022 Do You Use Sunscreen Routinely? Yes MIGRATION.429 8829750 Information not available 11/15/2022 How Many Years Have You Smoked Tobacco? 53 MIGRATION.659 0839995 Information not available 11/15/2022 Have You Recently Traveled Abroad? No MIGRATION.934 [id number] Information not available 11/15/2022 Do You Have Any Dietary Restrictions? No MIGRATION.869 4324606 Information not available 11/15/2022 Do You Or Have You Ever Used Any Other Forms Of Tobacco Or Nicotine? No MIGRATION.615 0341713 Information not available 11/15/2022 Sex: Male Functional Status Question Answer Note LastModified by Organizat ion Details LastModified Time Do you have difficulty walking or climbing stairs? No MIGRATION.[id number] 1482 Information not available 11/15/2022 Do you have transportation difficulties? No MIGRATION.089937 0740 Information not available 11/15/2022 Are you able to walk? YESWOREST MIGRATION.039805 9289 Information not available 11/15/2022 Do you have difficulty doing errands alone? No MIGRATION.972001 9107 Information not available 11/15/2022 Are you able to care for yourself? Yes MIGRATION.246325 0603 Information not available 11/15/2022 Do you have difficulty dressing or bathing? No MIGRATION.740913 1871 Information not available 11/15/2022 What is your exercise level? Occasional Active life stlye [email or web address] Information not available 04/03/2024 Mental Status Question Answer Note LastModified by Organizat ion Details LastModified Time Do you have difficulty concentrating, remembering or making decisions? No MIGRATION.[id number] 6 Information not available 11/15/2022 Family History Relationship Description Onset Age of this Age Resolved Age Notes LastModified by Organization Details LastModified Time Brother Essential hypertension MIGRATION.581 [id number] Not available 11/15/2022 04:44:01 Brother Malignant neoplastic disease Colon MIGRATION.698 [id number] Not available 11/15/2022 04:44:01 Father Essential hypertension MIGRATION.028 [id number] Not available 11/15/2022 04:44:01 Father Heart disease MIGRATION.551 [id number] Not available 11/15/2022 04:44:01 Mother Essential hypertension MIGRATION.843 [id number] Not available 11/15/2022 04:44:01 Mother Heart disease MIGRATION.945 [id number] Not available 11/15/2022 04:44:01 Sister Malignant neoplastic disease Breast MIGRATION.024 [id number] Not available 11/15/2022 04:44:02 Maternal Grandmother Family history of stroke [email or web address] Not available 2022 14:36:39 Mother Arthritis Not [...] mcg/0.25mL dose 1 [facility] 14:20:36 COVID-19, mRNA, LNP-S, PF, 100 mcg/0.5mL dose or 50 mcg/0.25mL dose 1 completed [facility] 04/01/2024 14:20:36 pneumococcal polysaccharide PPV23 3 completed [facility] 04/01/2024 14:20:36 Influenza, split virus, trivalent, PF 7 completed [facility] 04/01/2024 14:20:37 COVID-19, mRNA, LNP-S, PF, 30 mcg/0.3 mL dose 1 completed [facility] 04/01/2024 14:20:36 COVID-19, mRNA, LNP-S, PF, 30 mcg/0.3 mL dose 1 completed [facility]/01/2024 14:20:36 pneumococcal polysaccharide PPV23 7 completed [facility] 04/01/2024 14:20:36 Influenza, high-dose, trivalent, PF 9 completed Not Available [facility] 10/02/2023 01:29:04 Influenza, high-dose, trivalent, PF 8 completed Not Available Critical [facility] hospital 10/02/2023 01:29:04 Pneumococcal conjugate PCV 13 8 completed Sumeet Lai LPN gerard, [facility] 04/01/2024 14:20:36 Influenza, high-dose, trivalent, PF 5 completed Not Available Critical access hospital 10/02/2023 01:29:04 pneumococcal polysaccharide PPV23 5 completed Not Available Critical access hospital 10/02/2023 01:29:04 Influenza, split virus, trivalent, PF 4 completed Sumeet Lai LPN null, [facility] 04/01/2024 14:20:37 Influenza, split virus, trivalent, PF 3 completed SANDRA Rosa, [facility] 04/01/2024 14:20:37 Past Encounters Encounter ID Performer Location Encounter Start Date Encounter Closed Date Diagnosis/Indication Diagnosis SNOMED-CT Code Diagnosis ICD10 Code Diagnosis Note [id number] [facility] [address] [place] [address]. [place] [address] 05/26/2021 00:00:00 06/07/2021 17:13:19 [id number] [facility] [address] [place] [address] 05/26/2021 00:00:00 06/07/2021 17:22:34 [id number] [facility] [address] [address] 10/11/2021 00:00:00 10/11/2021 12:15:42 [id number] [facility] [address] [place] [address] 11/10/2021 00:00:00 11/10/2021 14:15:46 [id number] [facility] [address] [place] [address] 12/21/2021 00:00:00 12/21/2021 12:26:48 [id number] [facility] [address] [address] 02/09/2022 00:00:00 02/09/2022 13:02:43 [id number] [facility] [address] [address] 06/13/2022 00:00:00 06/13/2022 17:11:20 [id number] [facility] [address] [facility] [place] [address] 07/26/2022 00:00:00 07/26/2022 10:05:44 [id number] [facility] [address] [facility] [place] [address] 10/16/2022 00:00:00 10/16/2022 17:28:29 [id number] Josemanuel Jones MD [facility] [address] [facility] [place] [address] 02/22/2023 14:00:48 02/22/2023 14:44:11 Diabetes mellitus 11712563 E11.9 , advised to get labs Hyperlipidemia 57508079 E78.5 Zetia, needs labs Essential hypertension 69632663 I10 add HCTZ Restless legs 36424136 G 25.81 meds help Gastroesop hageal reflux disease 366654767 K21.9 meds help Chronic pain syndrome 37 7171097 G89.4 otc helps Pain of bi lateral hip joints 4739083441 7586498 M25.551 OTC Smoker 56940260 F17.200 advised to quit Solitary n odule of lung 115719946 R91.1 advised to quit smoking Adult heal th examination 972386232 Z00.00 colonoscop y- due, was ordered few times, he will call GI to schedule it, will not reorderPSA -07/07, WAS [id number] 09/23/2017PP 23- 07/28/2013 , 02/2017, 08/04/2015 influenza vaccine- 08/13/19CO VID- 12/26/2020 , 01/27/2021 Chronic ob structive pulmonary disease 74472285 J44.9 better Weakness o f left upper limb 7349921442 46436 M62.81 improved, watch, symptoms were vague Screening for malignant neoplasm of prostate 552908804 Z12.5 Depression screening 171 035332 Z13.31 neg Body mass index 20-24 - normal 114167042 Z68.23 [id number] Caitlin albright MD [facility] [address] [facility] [place] [address] 03/28/2023 13:57:30 03/28/2023 15:13:44 Screening - NAD 099157651 Z13.9 C-scope: Get this done or get the report if done Get yearly flu shotUTD on COVID X2, can do boostersUT D on PCVGet tdap if not doneGet Shingrix if not done RTC in 3 months, do labs, ER if worse, he did verbalize his understand ing of the above Hyperlipidemia 94554766 E78.5 On ASAOn atorvastat in 40mg dailyGet labs 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 619147376 E11.9 On metformin Get labs Gastroesop hageal reflux disease without esophagitis 286722169 K21.9 On omeprazole Get EGD done Chronic ob structive pulmonary disease 72057026 J44.9 On albuterolO n HHNsOn trelegy Carotid ar angel stenosis 29115634 I65.29 S/p stent in 03/09On ASAOn plavix Restless legs 39946280 G 25.81 On requipDoes well Ex-cigarette smoker 2810 90506 Z87.891 LDCT 09/21/2022 Get US AAA done Coronary arteriosclerosis 54338359 I25.10 CAD noted Get a referral to cardiology Dr Guevara Screening for malignant neoplasm of colon 816992821 Z12.11 Transient cerebral ischemia 491686535 G45.[address] Schumacher his neurologis t, get last OV note S/p hospitaliz ation, does very well now, no residual symptoms at this timeOn [place]SAOn [place]avixOn [place]vastat in [id number] Duncan Suarez MD [facility] [address] [facility] [address] [place] [address] 04/05/2023 11:23:02 04/06/2023 07:44:46 Dyspnea on exertion 37195885 R06.09 R05.9 T78.40XA D89.9 Solitary n odule of lung 898159560 R91.1 [id number] Caitlin albright MD [facility] [place] [address] [facility] [address] 05/16/2023 14:18:54 05/16/2023 15:23:17 Screening - NAD 859241466 Z13.9 C-scope: Get this done or get the report if done Get yearly flu shotUTD on COVID X2, can do boostersUT D on PCVGet tdap if not doneGet Shingrix if not done RTC in 3 months, do labs, ER if worse, he did verbalize his understand ing of the above Hyperlipidemia 30660214 E78.5 On ASAOn atorvastat in 40mg dailyGet labs 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 100485563 E11.9 On metforminO n FarxigaOn olmesartan Get labs Gastroesop hageal reflux disease without esophagitis 822623549 K21.9 On omeprazole Get EGD done Chronic ob structive pulmonary disease 16736769 J44.9 On albuterolO n HHNsOn trelegy Carotid ar angel stenosis 25404133 I65.29 S/p stent in 03/09On ASAOn plavix Restless legs 87424170 G 25.81 On requipDoes well Ex-cigarette smoker 2810 48743 Z87.891 LDCT 09/21/2022 Get US AAA done as US AAA 04/04/2023 was non diagnostic d/t bowel gas Coronary arteriosclerosis 58001380 I25.10 [address] notedDr Bette 04/12/2023 , f/u in one month Screening for malignant neoplasm of colon 064878610 Z12.11 Transient cerebral ischemia 976242356 G45.9 CT Angio: 02/28/2023 : High grade stenosis, R ICA, s/p stent He does see Dr Schumacher his neurologis t, get last OV note S/p hospitaliz ation, does very well now, no residual symptoms at this timeOn ASAOn plavixOn atorvastat in Liver enzy mes level above reference range 768459369 R74.8 Get labs and US liver Proteinuria 89920148 R80 .9 Sees nephrology Pain of ri ght knee joint 1536403918 41029 M25.561 Get a referral to ortho Male hypogonadism 433928 06 E29.1 get labs Serum shane min B12 below reference range 751881939 R79.89 Vitamin D deficiency 347 99187 E55.9 [id number] ANGIE Ordonez [facility] [address] [place] [address] 05/24/2023 13:58:48 05/24/2023 16:01:49 Pain of right knee joint 0995727769 44623 M25.497 [id number] Crow Balderrama DPM [facility] [address] [facility] [place] [address] 07/10/2023 14:30:43 07/16/2023 09:50:24 Diabetic peripheral neuropathy 515420926 E11.40 Rx diabetic shoes and insertsPat ient educated on neuropathy , diabetes, diabetic diet, and daily foot exams. Patient is to check feet daily for new wounds, blisters, redness to prevent infection and ulceration s to the feet. Patient will return to clinic in 3 months for diabetic foot workup. Bilateral foot congenital pes cavus 8804052239 8318071 Q66.71 Q66.72 Recommend diabetic shoes and inserts History of cerebrovascular accident 908767433 Z86.73 continue with PCP recommenda tion [id number] Caitlin albright MD [facility] Internal Med [facility] [address] [facility], 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 910891646 E11.9 On metforminO n FarxigaOn olmesartan Get labs Chronic ob structive pulmonary disease 51577547 J44.9 On albuterolO n HHNsOn trelegy Carotid ar angel stenosis 50708122 I65.29 S/p stent in 03/09On ASAOn plavix Restless legs 31095035 G 25.81 On requipDoes well Ex-cigarette smoker 2810 01368 Z87.891 LDCT 09/21/2022 Get US AAA done as AAA 04/04/2023 was non diagnostic d/t bowel gas Coronary arteriosclerosis 47243740 I25.10 CAD notedDr Bette 04/12/2023 , f/u in one month Transient cerebral ischemia 479553932 G45.9 CT Angio: 02/28/2023 : High grade stenosis, R ICA, s/p stent He does see Dr Schumacher his neurologis t, get last OV note S/p hospitaliz ation, does very well now, no residual symptoms at this timeOn ASAOn plavixOn atorvastat in Liver enzy mes level above reference range 344534966 R74.8 ALP 128 03/28/2023 Get labs and US liver Proteinuria 46565897 R80 .9 US kidney 05/25/2023 : Dr Hinson IJ Pain of ri ght knee joint 8989876922 86896 M25.561 MRI R knee: 06/07/2023 : Dr Wilkins Male hypogonadism 314575 06 E29.1 get labs Serum shane min B12 below reference range 005117203 R79.89 Vitamin D deficiency 347 22039 E55.9 Get labs Melendez's esophagus 3029 87754 K22.70 On omeprazole 05/02/2023 : EGD BarrettsNe eds a follow up with GI Impacted c erumen of bilateral ears 7715297664 678211 H61.23 Moderate cerumen extracted from his fuentes ears 08/30/2023 , he tolerated the procedure well Upper resp iratory infection 19715375 J06.9 Get flu/strep and COVID 19 testStart on Z-pack, ER if worse Chronic pain 54569910 G8 9.29 Get a referral to pain management [id number] Caitlin albright MD [facility] [address] [place] [address] 09/25/2023 15:56:57 09/25/2023 16:44:27 Abdominal pain 77581411 R10.9 Seen in the ER on 09/19/2023 [...] will see him this 09/27/2023 at 10.30am [id number] Jerod patricia MD [facility] General Surgery [address] [place] [address] 09/27/2023 11:17:35 09/27/2023 14:26:21 Foreign body 465521628 Z87.821 Foreign body cecum [id number] Caitlin albright MD [facility] [place] [address] [place] [address] 11/29/2023 09:48:07 11/29/2023 10:38:28 Screening - NAD 788365702 Z13.9 C-scope: 05/02/2023 , Dr Dickson next in one year Get yearly flu shotUTD on COVID X2, can do boostersUT D on PCVGet tdap if not doneGet Shingrix if not doneGet RSV vaccine RTC in 3 months, do labs, ER if worse, he did verbalize his understand ing of the above Hyperlipidemia 02268103 E78.5 On ASANot on atorvastat in 40mg daily On rosuvastat in 40mg dailyGet labs 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 479712085 E11.9 On metforminO n FarxigaNot on olmesartan Get labs Chronic ob structive pulmonary disease 06202026 J44.9 On albuterolO n HHNsNot on trelegy Carotid ar angel stenosis 76663349 I65.29 S/p stent in ASAOn plavix Restless legs 37025991 G 25.81 Not on requipOn lyrica 75mg Dr Riojas well Ex-cigarette smoker 2810 33820 Z87.891 LDCT 09/21/2022 Get US AAA done as US AAA 04/04/2023 was non diagnostic d/t bowel gas US AAA 09/18/2023 : Neg Coronary arteriosclerosis 51655276 I25.10 CAD notedDr Bette 04/12/2023 , f/u in one month, referred 11/29/[address] daily Dr Sravan OTERO Transient cerebral ischemia 415127019 G45.9 CT Angio: 02/28/2023 : High grade stenosis, R ICA, s/p stent He does see Dr Schumacher his neurologis t, get last OV note S/p hospitaliz ation, does very well now, no residual symptoms at this timeOn ASANot on plavixNot on atorvastat in On rosuvatati n 40mg daily Liver enzy mes level above reference range 886977530 R74.8 ALP 128 03/28/2023 Get labs and US liver Addendum: 12/07/23US liver 12/03/2023 : Hepatic steatosis, triage notified Proteinuria 01792370 R80 .9 US kidney 05/25/2023 : Dr Sravan OTERO Pain of ri ght knee joint 3637736962 82147 M25.561 MRI R knee: 06/07/2023 : Dr Lemon erred to Dr Hernandez Male hypogonadism 731563 06 E29.1 get labs Serum shane min B12 below reference range 957672148 R79.89 Vitamin D deficiency 347 40441 E55.9 Get labs Melendez's esophagus 3029 50347 K22.70 On omeprazole 05/02/2023 : EGD BarrettsNe eds a follow up with GI Chronic pain 29130623 G8 9.29 Get a referral to pain management today 11/29/2023 , states that he does not want any pain meds at all Abdominal pain 42963707 R10.9 Seen in the ER on 09/19/2023 [...] : Case sent Acute magi rgic reaction 812144354 T78.40XA Seen in ERTreated with steroids, now is doing well Chronic ki dney disease 974532330 N18.9 On calcitriol On losartan Sees Dr Hinson IJ [id number] Caitlin albright MD [facility] [place] [address] [facility] [place] [address] 12/10/2023 10:45:19 12/10/2023 11:26:10 Type 2 diabetes mellitus without complication 173982995 E11.9 On metformin ER 500mg daily, will increase to bidOn Farxiga 10mg daily but was not taking d/t costGet on Jardiance 10mg dailyIs adamant that he does not want to start on any insulin, states that he also was not very compliant with the metforminH e has be told to take his meds on scheduleNo t on olmesartan Get labs Penile candidiasis 68624 8000 B37.49 No more rash noted, he is using his nystatin-t rimacinolo ne cream and states that the rash is cleared up now Screening - NAD 56753943 3 Z13.9 C-scope: 05/02/2023 , Dr Dickson next in one year Get yearly flu shotUTD on COVID X2, can do boostersUT D on PCVGet tdap if not doneGet Shingrix if not doneGet RSV vaccine RTC in 3 months, do labs, ER if worse, he did verbalize his understand ing of the above Hyperlipidemia 87070509 E78.5 On ASAOn atorvastat in 40mg daily, states today 12/10/2023 that he has not been compliant with taking his medication , advised to become compliant and repeat the labs Not on rosuvastat in 40mg dailyGet labs Chronic ob structive pulmonary disease 75724225 J44.9 On albuterolO n HHNsNot on trelegy Carotid ar angel stenosis 58314922 I65.29 S/p stent in 03/09On ASANot on plavixNeed s to see cardiology Restless legs 30104977 G 25.81 Not on requipOn lyrica 75mg Dr Riojas well Ex-cigarette smoker 2810 54714 Z87.891 LDCT 09/21/2022 Get US AAA done as US AAA 04/04/2023 was non diagnostic d/t bowel gas US AAA 09/18/2023 : Neg Coronary arteriosclerosis 52862326 I25.10 CAD notedDr Bette 04/12/2023 , f/u in one month, referred 11/29/[address] Sravan Kearneys to see Dr Amos Transient cerebral ischemia 521462541 G45.9 CT Angio: 02/28/2023 : High grade stenosis, R ICA, s/p stent He does see Dr Schumacher his neurologis t, get last OV note S/p hospitaliz ation, does very well now, no residual symptoms at this timeOn ASANot on plavixNot on atorvastat in On rosuvatati n 40mg daily Liver enzy mes level above reference range 581961270 R74.8 ALP 128 03/28/2023 Get labs and US liver Addendum: 12/07/23US liver 12/03/2023 : Hepatic steatosis, triage notified Proteinuria 55174277 R80 .9 US kidney 05/25/2023 : Dr Sravan OTERO Pain of ri ght knee joint 5233416845 23597 M25.561 MRI R knee: 06/07/2023 : Dr Lemon erred to Dr Hernandez Male hypogonadism 274833 06 E29.1 get labs Serum shane min B12 below reference range 037808976 R79.89 Vitamin D deficiency 347 89951 E55.9 Get labs Melendez's esophagus 3029 46606 K22.70 On omeprazole 05/02/2023 : EGD AlsPrudence eds a follow up with GI Chronic pain 84334404 G8 9.29 Get a referral to pain management today 11/29/2023 , states that he does not want any pain meds at all Abdominal pain 98740816 R10.9 Seen in the ER on 09/19/2023 [...] abd pain noted Acute magi rgic reaction 744755618 T78.40XA Seen in ERTreated with steroids, now is doing well Chronic ki dney disease 850604966 N18.9 On calcitriol On losartan Sees Dr Hinson IJ [id number] ANGIE Martinez [facility] [place] [address] [place] [address] 12/25/2023 14:36:22 12/25/2023 15:57:04 Pain of right knee joint 1832496664 73901 M25.561 Osteoarthr itis of right knee joint 9556703115 18895 M17.11 [id number] ANGIE Martinez [facility] [place] 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 829121160 E11.9 On metformin ER 500mg bidOn Farxiga 10mg daily but was not taking d/t Carson Jardiance 10mg daily Is adamant that he does not want to start on any insulin, states that he also was not very compliant with the metforminH e has be told to take his meds on scheduleNo t on olmesartan Get labs Penile candidiasis 01439 8000 B37.49 No more rash noted, he is using his nystatin-t rimacinolo ne cream and states that the rash is cleared up now Hyperlipidemia 76662859 E78.5 On ASAOn atorvastat in 40mg daily Not on rosuvastat in 40mg dailyGet labs Chronic ob structive pulmonary disease 84688324 J44.9 On albuterolO n HHNsNot on trelegyNee ds to keep apt with Dr Suarez Carotid ar nagel stenosis 06075146 I65.29 S/p stent in ASANot on plavixDr Bette [facility] 02/21/2024 , next in 6 months Restless legs 52794429 G 25.81 Not on requipOn lyrica 75mg Dr Riojas well Ex-cigarette smoker 2810 67841 Z87.891 LDCT 09/21/2022 Get US AAA done as US AAA 04/04/2023 was non diagnostic d/t bowel gas US AAA 09/18/2023 : Neg Coronary arteriosclerosis 37237698 I25.10 CAD noted On losartan 50mg daily Dr Sravan palma done 25mg dailyDr Bette 02/20/2023 Transient cerebral ischemia 341659744 G45.9 CT Angio: 02/28/2023 : High grade stenosis, R ICA, s/p stent He does see Dr Schumacher his neurologis t, get last OV note S/p hospitaliz ation, does very well now, no residual symptoms at this timeOn ASANot on plavixNot on atorvastat in On rosuvatati n 40mg daily Liver enzy mes level above reference range 488214468 R74.8 ALP 128 03/28/2023 Get labs and US liver Addendum: 12/07/23US liver 12/03/2023 : Hepatic steatosis, triage notified Proteinuria 12687490 R80 .9 US kidney 05/25/2023 : Dr Hinson IJ Pain of ri ght knee joint 2704606376 93986 M25.561 MRI R knee: 06/07/2023 : Dr Lemon erred to Dr Hernandez Male hypogonadism 124481 06 E29.1 get labs Serum shane min B12 below reference range 510349820 R79.89 Vitamin D deficiency 347 04646 E55.9 Get labs Melendez's esophagus 3029 67531 K22.70 On omeprazole 05/02/2023 : EGD Tonja eds a follow up with GI EGD 01/04/2024 : 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 Addendum: 04/03/2024 :See case, needs to get another EGD, he was notified Chronic pain 36177686 G8 9.29 Referred to pain management 11/29/2023 ,Advised not to take any NSAIDs d/t CAD and CKD issuesOK to refill his methocarba mol to take as needed in very limited quantities , if he needs more see pain management Abdominal pain 59733806 R10.9 Seen in the ER on 09/19/2023 [...] abd pain noted Acute magi rgic reaction 177324453 T78.40XA Seen in ERTreated with steroids, now is doing well Chronic ki dney disease 947342758 N18.9 On calcitriol On losartan Sees Dr Hinson IJ Pain of bi lateral hip joints 4074947729 5082977 M25.551 M25.552 Marcus Walker PA 01/01/2024 Adult heal th examination 206557013 Z00.00 Screening for disorder 307672618 Z13.9 Spasm 91520564 R25.2 Screening for malignant neoplasm of prostate 361003325 Z12.5 [id number] Caitlin albright MD [facility] [place] [address] [facility] [address] , [place] [address] 05/26/2024 16:14:38 05/26/2024 17:25:00 Screening - NAD 618264099 Z13.9 C-scope: 05/02/2023 , Dr Dickson next [...] 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 672629272 E11.9 On metformin ER 500mg bidOn Farxiga 10mg daily but was not taking d/t Carson Jardiance 10mg daily Is adamant that he does not want to start on any insulin, states that he also was not very compliant with the metforminH e has be told to take his meds on scheduleNo t on olmesartan Get labs Penile candidiasis 23113 8000 B37.49 No more rash noted, he is using his nystatin-t rimacinolo ne cream and states that the rash is cleared up now Hyperlipidemia 94405825 E78.5 On ASAOn atorvastat in 40mg daily Not on rosuvastat in 40mg dailyGet labs Chronic ob structive pulmonary disease 76117736 J44.9 On albuterolO n Igor asmbrooke as per d/c from [facility] 05/14/2024 Needs to keep apt with Dr Suarez!Today 05/26/2024 : Severe SOB and YAN, at this, he was referred to ER, 911 ambulance called and [facility] Carotid ar angel stenosis 91448264 I65.29 S/p stent in 03/09On ASANot on plavixDr Bette [facility] 02/21/2024 , next in 6 months Restless legs 36840201 G 25.81 Not on requipOn lyrica 75mg in am and [address] Riojas well Ex-cigarette smoker 2810 82972 Z87.891 LDCT 09/21/2022 Get US AAA done as US AAA 04/04/2023 was non diagnostic d/t bowel gas US AAA 09/18/2023 : Neg Coronary arteriosclerosis 87212055 I25.10 CAD noted On losartan 50mg daily Dr Sravan Hodges chlorthali done 25mg dailyDr Bette 02/20/2023 Transient cerebral ischemia 328787502 G45.9 CT Angio: 02/28/2023 : High grade stenosis, R ICA, s/p stent He does see Dr Schumacher his neurologis t, get last OV note S/p hospitaliz ation, does very well now, no residual symptoms at this timeOn ASANot on plavixNot on atorvastat in On rosuvastat in 40mg daily Liver enzy mes level above reference range 818318456 R74.8 ALP 128 03/28/2023 Get labs and US liver Addendum: 12/07/23US liver 12/03/2023 : Hepatic steatosis, triage notified Proteinuria 73188155 R80 .9 US kidney 05/25/2023 : Dr Sravna OTERO Pain of ri ght knee joint 1230098190 01437 M25.561 MRI R knee: 06/07/2023 : Dr Lemon erred to Dr Hernandez Male hypogonadism 887248 06 E29.1 get labs Serum shane min B12 below reference range 561834709 R79.89 Vitamin D deficiency 347 75369 E55.9 Get labs Melendez's esophagus 3029 56934 K22.70 On omeprazole 05/02/2023 : EGD Tonja soni a follow up with GI EGD 01/04/2024 : 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 Addendum: 04/03/2024 :See case, needs to get another EGD, he was notified Chronic pain 95177892 G8 9.29 Referred to pain management 11/29/2023 ,Advised not to take any NSAIDs d/t CAD and CKD issuesOK to refill his methocarba mol to take as needed in very limited quantities , if he needs more see pain management Abdominal pain 50227798 R10.9 Seen in the ER on 09/19/2023 [...] : Case sent Acute magi rgic reaction 510796885 T78.40XA Seen in ERTreated with steroids, now is doing well Chronic ki dney disease 466197131 N18.9 On calcitriol On chlorthali done 25mg dailyOn losartan 50mg daily Sees Dr Sravan OTERO Pain of bi lateral hip joints 6869423298 2183896 M25.551 M25.552 Marcus ADAMS 01/01/2024 Screening for malignant neoplasm of prostate 152118414 Z12.5 Transition of care 05580 75216 105 Z75.8 [id number] Caitlin albright MD [facility] [place] [address] [place] [address] 06/04/2024 14:22:04 06/04/2024 15:03:41 Screening - NAD 372799219 Z13.9 C-scope: 05/02/2023 , Dr Dickson next [...] 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 435629323 E11.9 On metformin ER 500mg bidOn Farxiga 10mg daily but was not taking d/t Carson Jardiance 10mg dailyOn lantus 10U at bedtime Not on olmesartan Get labs Penile candidiasis 03997 8000 B37.49 No more rash noted, he is using his nystatin-t rimacinolo ne cream and states that the rash is cleared up now Hyperlipidemia 21031051 E78.5 On ASAOn atorvastat in 40mg daily Not on rosuvastat in 40mg dailyGet labs Chronic ob structive pulmonary disease 97633255 J44.9 On albuterolO n HHNsOn trelegy Needs to keep apt with Dr Suarez!Today 05/26/2024 : Severe SOB and YAN, at this, he was referred to ER, 911 ambulance called and [facility] OV 06/04/2024 :Dr Suarez 06/04/2024 , keep apts with pulmonary Carotid ar angel stenosis 86909947 I65.29 S/p stent in ASANot on plavixDr Bette [facility] 02/21/2024 , next in 6 months Restless legs 17812134 G 25.81 Not on requipOn lyrica 75mg in am and [address] Riojas well Ex-cigarette smoker 3040 83850 Z87.891 LDCT 09/21/2022 Get US AAA done as US AAA 04/04/2023 was non diagnostic d/t bowel gas US AAA 09/18/2023 : Neg Coronary arteriosclerosis 08038127 I25.10 CAD noted On losartan 50mg daily Dr Sravan Hodges chlorthali done 25mg dailyOn metoprolol ER 50mg dailyDr Bette 02/20/2023 Transient cerebral ischemia 859043768 G45.9 CT Angio: 02/28/2023 : High grade stenosis, R ICA, s/p stent He does see Dr Schumacher his neurologis t, get last OV note S/p hospitaliz ation, does very well now, no residual symptoms at this timeOn ASANot on plavixNot on atorvastat in On rosuvastat in 40mg daily Liver enzy mes level above reference range 746805540 R74.8 ALP 128 03/28/2023 Get labs and US liver Addendum: 12/07/23US liver 12/03/2023 : Hepatic steatosis, triage notified Proteinuria 13865626 R80 .9 US kidney 05/25/2023 : Dr Sravan OTERO Pain of ri ght knee joint 3550912531 68163 M25.561 MRI R knee: 06/07/2023 : Dr Lemon erred to Dr Hernandez Male hypogonadism 049984 06 E29.1 Get labs Serum shane min B12 below reference range 099993071 R79.89 Vitamin D deficiency 347 94339 E55.9 Get labs Melendez's esophagus 3029 15125 K22.70 On omeprazole 05/02/2023 : EGD Tonja eds a follow up with GI EGD 01/04/2024 : 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 Addendum: 04/03/2024 :See case, needs to get another EGD, he was notified Chronic pain 23185614 G8 9.29 Referred to pain management 11/29/2023 ,Advised not to take any NSAIDs d/t CAD and CKD issuesOK to refill his methocarba mol to take as needed in very limited quantities , if he needs more see pain management Abdominal pain 74370182 R10.9 Seen in the ER on 09/19/2023 [...] Does well now Acute magi rgic reaction 657545584 T78.40XA Seen in ERTreated with steroids, now is doing well Chronic ki dney disease 890111034 N18.9 On calcitriol On chlorthali done 25mg dailyOn losartan 50mg daily Sees Dr Sravan OTERO Pain of bi lateral hip joints 4516092684 1960625 M25.551 M25.552 Marcus ADAMS 01/01/2024 Screening for malignant neoplasm of prostate 902517852 Z12.5 Transition of care 50578 45896 105 Z75.8 Pneumonia 218791823 J18. 9 S/p d/c 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 OV 06/04/2024 :Dr Suarez 06/04/2024 , [...] f/u on 07/08/2024 Carotid ar angel stenosis 50226567 I65.29 S/p stent in ASANot on plavixDr Bette [facility] 02/21/2024 , next in 6 months Restless legs 12802011 G 25.81 Not on requipOn lyrica 75mg in am and [address] Riojas well Ex-cigarette smoker 2810 38994 Z87.891 LDCT 09/21/2022 Get US AAA done as US AAA 04/04/2023 was non diagnostic d/t bowel gas US AAA 09/18/2023 : Neg Coronary arteriosclerosis 51339945 I25.10 CAD noted On losartan 50mg daily Dr Sravan OTEROOn chlorthali done 25mg dailyOn metoprolol ER 50mg dailyDr Bette 02/20/2023 Transient cerebral ischemia 152577254 G45.9 CT Angio: 02/28/2023 : High grade stenosis, R ICA, s/p stent He does see Dr Schumacher his neurologis t, get last OV note S/p hospitaliz ation, does very well now, no residual symptoms at this timeOn ASANot on plavixNot on atorvastat in On rosuvastat in 40mg daily Liver enzy mes level above reference range 205657778 R74.8 ALP 128 03/28/2023 Get labs and US liver Addendum: 12/07/23US liver 12/03/2023 : Hepatic steatosis, triage notified Proteinuria 71384692 R80 .9 US kidney 05/25/2023 : Dr Sravan OTERO Pain of ri ght knee joint 4076145487 02467 M25.561 MRI R knee: 06/07/2023 : Dr Lemon erred to Dr Hernandez Male hypogonadism 297602 06 E29.1 Get labs Serum shane min B12 below reference range 483012055 R79.89 Vitamin D deficiency 347 98465 E55.9 Get labs Melendez's esophagus 3029 25191 K22.70 On omeprazole 05/02/2023 : EGD BarrettsNe eds a follow up with GI EGD 01/04/2024 : 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 Addendum: 04/03/2024 :See case, needs to get another EGD, he was notified Chronic pain 55866956 G8 9.29 Referred to pain management 11/29/2023 ,Advised not to take any NSAIDs d/t CAD and CKD issuesOK to refill his methocarba mol to take as needed in very limited quantities , if he needs more see pain management Abdominal pain 23976244 R10.9 Seen in the ER on 09/19/2023 [...] Does well now Acute magi rgic reaction 546089942 T78.40XA Seen in ERTreated with steroids, now is doing well Chronic ki dney disease 335644247 N18.9 On calcitriol On chlorthali done 25mg dailyOn losartan 50mg daily Sees Dr Sravan OTERO Pain of bi lateral hip joints 1144144253 2819140 M25.551 M25.552 Marcus ADAMS 01/01/2024 Pneumonia 018404070 J18. 9 S/p d/c from [facility] 05/30/2024 Started on Lantus 10U q hsCBC: 05/30/2024 CMP: 05/30/2024 : BUN 33, Gluc 500 [id number] Duncan Suarez MD [facility] [place] [address] [facility] [address] [place] [address] 07/08/2024 16:41:56 07/09/2024 11:52:16 Solitary nodule of lung 415487292 R91.1 Mild chron ic obstructive pulmonary disease 935840878 J44.9 Posterior rhinorrhea 758 03657 R09.82 [id number] Bailey Hernandez MD [facility] [place] [address] [place] [address] 07/16/2024 10:31:14 07/16/2024 11:32:17 Pain of right knee joint 5689616670 49425 M25.188 [id number] Duncan Suarez MD [facility] [place] [address] [place], [place] [address] 08/27/2024 08:36:07 08/27/2024 16:32:18 Solitary nodule of lung 501639743 R91.1 Mild chron ic obstructive pulmonary disease 137119327 J44.9 Posterior rhinorrhea 758 10734 R09.82 Dysphonia 26844210 R49.9 [id number] Caitlin albright MD [facility] [address] [place] [address] 10/07/2024 11:44:35 10/07/2024 12:32:19 Screening - NAD 263680943 Z13.9 C-scope: 05/02/2023 , Dr Randolph navarro [...] 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 OV 06/04/2024 :Dr Suarez 06/04/2024 , keep apts with pulmonary OV 07/08/2024 :On trelegy, renewed 07/08/2024 as he has not had this refgamalOn Manuel kemp an apt with Dr Suarez [...] to see ENT Carotid ar angel stenosis 16841626 I65.29 S/p stent in 03/09On ASANot on plavixDr Bette [facility] 02/21/2024 , next in 6 months Restless legs 36363114 G 25.81 Not on requipNot on lyrica 75mg in am and [address] Riojas well Ex-cigarette smoker 2810 99625 Z87.891 LDCT 09/21/2022 Get US AAA done as US AAA 04/04/2023 was non diagnostic d/t bowel gas US AAA 09/18/2023 : Neg Coronary arteriosclerosis 10408746 I25.10 CAD noted On losartan 50mg daily Dr Sravan palma done 25mg dailyOn metoprolol ER 50mg dailyDr Bette 02/20/2023 Referred 10/07/2024 Transient cerebral ischemia 125174135 G45.9 CT Angio: 02/28/2023 : High grade stenosis, R ICA, s/p stent He does see Dr Schumacher his neurologis t, get last OV note S/p hospitaliz ation, does very well now, no residual symptoms at this timeOn ASANot on plavixNot on atorvastat in On rosuvastat in 40mg daily Liver enzy mes level above reference range 220844645 R74.8 ALP 128 03/28/2023 Get labs and US liver Addendum: 12/07/23US liver 12/03/2023 : Hepatic steatosis, triage notified Proteinuria 91531229 R80 .9 US kidney 05/25/2023 : Dr Hinson IJ Pain of ri ght knee joint 8264498742 41186 M25.561 MRI R knee: 06/07/2023 : Dr Lemon erred to Dr Hernandez Male hypogonadism 576928 06 E29.1 Get labs Serum shane min B12 below reference range 552003444 R79.89 Vitamin D deficiency 347 33431 E55.9 Get labs Melendez's esophagus 3029 23163 K22.70 On omeprazole 05/02/2023 : EGD DevonteNe eds a follow up with GI EGD 01/04/2024 : 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 Addendum: 04/03/2024 :See case, needs to get another EGD, he was notified Chronic pain 21217153 G8 9.29 Referred to pain management 11/29/2023 ,Advised not to take any NSAIDs d/t CAD and CKD issuesOK to refill his methocarba mol to take as needed in very limited quantities , if he needs more see pain management Abdominal pain 33749132 R10.9 Seen in the ER on 09/19/2023 [...] Does well now Acute magi rgic reaction 763367774 T78.40XA Seen in ERTreated with steroids, now is doing well Chronic ki dney disease 579476989 N18.9 On calcitriol On chlorthali done 25mg dailyOn losartan 50mg daily Sees Dr Hinson IJ Pain of bi lateral hip joints 9461232704 4833189 M25.551 M25.552 Marcus ADAMS 01/01/2024 Dysphonia 78482731 R49.9 Was referred to ENT on 08/27/[address] Suarez's note Pain of le ft shoulder joint 5767976209 9523384 M25.512 Slipped and fell on ice 10 days ago, unable to lift L shoulder, s/p ER visit at [facility] start on meloxicam and refer to ortho [id number] Bailey Hernandez MD [facility] [place] 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 OV 06/04/2024 :Dr Suarez 06/04/2024 , [...] 11/20/2024 :On albuterolO n anoroOn ipratropiu mOn trelegyDr Suarez last 08/27/[address] Mcneal last OV 09/30/2024 , next apt on 11/25/2024 Carotid ar angel stenosis 04475159 I65.29 S/p stent in ASANot on plavixDr Bette SL 02/21/2024 , next in 6 monthsDr Bette SL 08/11/2024 , f/u in 6 weeks and was to get US renal artery Restless legs 83784710 G 25.81 Not on requipNot on lyrica 75mg in am and [address] Riojas well Ex-cigarette smoker 2810 12311 Z87.891 LDCT 09/21/2022 Get US AAA done as US AAA 04/04/2023 was non diagnostic d/t bowel gas US AAA 09/18/2023 : Neg Coronary arteriosclerosis 72081269 I25.10 CAD noted On losartan 50mg daily Dr Sravan OTERO, is not taking this as per his historyOn chlorthali done 25mg dailyOn metoprolol ER 50mg daily, refilled 11/20/2024 , was not takingDr Bette 02/20/2023 Referred 10/07/2024 , 11/20/2024 Keep BP Transient cerebral ischemia 146058310 G45.9 CT Angio: 02/28/2023 : High grade stenosis, R ICA, s/p stent He does see Dr Schumacher his neurologis t, get last OV note S/p hospitaliz ation, does very well now, no residual symptoms at this timeOn ASANot on plavixOn atorvastat in renewed 11/20/2024 Not on rosuvastat in 40mg daily Liver enzy mes level above reference range 737150700 R74.8 ALP 128 03/28/2023 Get labs and US liver Addendum: 12/07/23US liver 12/03/2023 : Hepatic steatosis, triage notified Proteinuria 78664989 R80 .9 US kidney 05/25/2023 : Dr Sravan OTERO Pain of ri ght knee joint 7950498153 32819 M25.561 MRI R knee: 06/07/2023 : Dr Wilkins Male hypogonadism 964682 06 E29.1 Get labs Serum shane min B12 below reference range 520529142 R79.89 Vitamin D deficiency 347 59119 E55.9 Get labs Melendez's esophagus 3029 52735 K22.70 On omeprazole 05/02/2023 : EGD Tonja eds a follow up with GI EGD 01/04/2024 : 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 Addendum: 04/03/2024 :See case, needs to get another EGD, he was notified Chronic pain 55977300 G8 9.29 Referred to pain management 11/29/2023 ,Advised not to take any NSAIDs d/t CAD and CKD issuesOK to refill his methocarba mol to take as needed in very limited quantities , if he needs more see pain management Abdominal pain 67781551 R10.9 Seen in the ER on 09/19/2023 [...] Does well now Acute magi rgic reaction 913526729 T78.40XA Seen in ERTreated with steroids, now is doing well Chronic ki dney disease 419015597 N18.9 On calcitriol On chlorthali done 25mg dailyOn losartan 50mg daily Sees Dr Sravan OTERO Pain of bi lateral hip joints 9791725150 8756103 M25.551 M25.552 Marcus Walker PA 01/01/2024 Dysphonia 69661359 R49.9 Was referred to ENT on 08/27/[address] Suarez's note Pain of le ft shoulder joint 6811891793 1560144 M25.512 Slipped and fell on ice 10 days ago, unable to lift L shoulder, s/p [facility] [facility] [...] remain a moderate risk for this procedure [id number] Jaycee Chaparro PA-C [facility] [place] [address] [facility] [address] [place] [address] 12/03/2024 14:47:58 12/03/2024 16:19:34 Pain of left shoulder joint [id number] M25.512 Health Concerns Section Related Observation LastModified by Organization Detai ls LastModified Time None Recorded Concern Status LastModified by Organization Details LastModified Time None Recorded Advance Directives Directive Y: Patient stated he needs t o update since . Recommended working with an deputy prosecuting attorney. Payers Encounter Date Sequence Insurance Name Policy Number Policy Santana Covered Member ID Santana Member ID Guarantor Name 08/27/2024 1 [facility] - MEDICARE COMPLETE - CHOICE PLAN 2 (MEDICARE REPLACEMENT REGIONAL PPO) [id number] Navid Rodríguez [id number] Navid Rodríguez 10/07/2024 1 [facility] - MEDICARE COMPLETE - CHOICE PLAN 2 (MEDICARE REPLACEMENT REGIONAL PPO) [id number] Navid Currykey [id number] Navid Rodríguez 10/08/2024 1 [facility] - MEDICARE COMPLETE - CHOICE PLAN 2 (MEDICARE REPLACEMENT REGIONAL PPO) [id number] Navid Currykey [id number] Navid Currykey 11/20/2024 1 [facility] - MEDICARE COMPLETE - CHOICE PLAN 2 (MEDICARE REPLACEMENT REGIONAL PPO) [id number] Navid Rodríguez [id number] Navid Rodríguez 12/03/2024 1 [facility] - MEDICARE COMPLETE - CHOICE PLAN 2 (MEDICARE REPLACEMENT REGIONAL PPO) [id number] Navid Rodríguez [id number] Navid Rodríguez Notes Date Note Type Note Provider Name and Address Organization Details Recorded Time 08/27/2024 text/html Primary care/Referring provider: Caitlin Moreno MD CC: I have hoarseness of voice and I could not sing in the assisted. Patient is here to go over his mild COPD management. Initial development of shortness of breath: 2011Duration of shortness of breath: 13 yearsCondition of shortness of breath: stableTiming of shortness of breath: morningFrequency: up to 3 times a dayLimits activities: yesAggravating factors: walking, doing yard workAlleviating factors: rest Modified [employer] (mMRC) Dyspnea Scale - Grade 1Grade 0 [...] uoneb since 2016 Spiriva Handihaler once daily [id number] Symbicort HFA 160/4.5 mcg 2 puffs BID [...] yesEdema: no Environmental exposures:Nicotine smoke: 1 ppd 1229-3139 (quit 12 years in between) = 41 [...] chance of dozing. Duncan Suarez MD [address] [facility], [facility] [address], [place], [address], [facility] [employer] [place] 08/27/2024 09:34:58 10/07/2024 text/html OV 03/28/2023: H ere to establish carePast Hx:HLDCOPDDMIITIARevi ewed social family and surgical historyHere to discuss above, admitted to [facility] on 02/28/2023 for TIA with L [...] for UTI, seen in the ER at [facility] 09/24/2023, treated with antibiotic and also did [...] OV 05/26/2024: Here post hosp, d/c from [facility] 05/14/2024 for SOB, today very SOB and has ongoing cough, he is extremely fatigued, c/o wheezing also, states that he is worse since his d/c from [facility] on 05/14/2024 OV 06/04/2024: Here for his [...] completely resolved, he was to see Dr Suarez pulmonary OV 10/07/2024: Here for his routine apt, he is doing well today, he did see Dr Daniela Moreno MD [address] [facility], [address], [place], [address], [facility] [employer] [place] 10/10/2024 11:49:03 11/20/2024 text/html OV 03/28/2023: H ere to establish carePast Hx:HLDCOPDDMIITIARevi ewed social family and surgical historyHere to discuss above, admitted to [facility] on 02/28/2023 for TIA with L [...] for UTI, seen in the ER at [facility] 09/24/2023, treated with antibiotic and also did [...] OV 05/26/2024: Here post hosp, d/c from [facility] 05/14/2024 for SOB, today very SOB and has ongoing cough, he is extremely fatigued, c/o wheezing also, states that he is worse since his d/c from [facility] on 05/14/2024 OV 06/04/2024: Here for his [...] Dr Hernandez but still has shoulder pain Caitlin Moreno MD [address] [facility], [facility] [address], [place], [address], [facility] 01/06/2025 14:51:30
--- OUTSIDE RECORDS SUMMARY | 2025-01-12 17:54 | XMS_ITS | CONTINUITY OF CARE DOCUMENT ---
Author Name cruz kitoctavio Address Unknown Organization [facility] Address [address] [facility] [address] [place] [address] Phone [phone] Care Team Providers Care Administrative Asst Name Role Phone Derrick Amos MD Unavailable CAITLIN RAMÍREZ MD Unavailable [phone] CAITLIN RAMÍREZ MD Unavailable PROBLEMS Condition Status Date Provider Notes Preop [...] In-person encounter Office Visit Steven Shaw NP [facility] - In-person encounter Office Visit Derrick Amos MD [facility] - In-person encounter Office Visit Derrick Amos MD [facility] Cardiology examination - In-person encounter Office Visit Derrick Amos MD [facility] TOBACCO ABUSE-QUIT - In-person encounter Office Visit Derrick Amos MD [facility] - In-person encounter Office Visit Derrick Amos MD [facility] - In-person encounter Office Visit Derrick Amos MD [facility] - In-person encounter Office Visit Derrick Amos MD [facility] CVA - In-person encounter Office Visit Derrick Amos MD [facility] - In-person encounter Office Visit Marshal Milner MD [facility] Preop examHypertensionDyslipidemiaDiabetes mellitusCOPDShortness of breathTOBACCO ABUSE-QUITArrhythmia VITAL SIGNS Date Observation Value Provider Body Mass Index (Ratio) 22.31 kg/m2 Arnie Shaw NP blood pressure, diastolic 101 mm[Hg] emerald Lim blood pressure, systolic 179 mm[Hg] Danna laura Lim oxygen saturation, oximetry 95 % [facility] pulse [facility] 71 /min [facility] respiratory rate E&M 12 /min [facility] weight E&M 130 [lb_av] [facility] height E&M 64 [in_i] [facility] blood pressure, cuff size regular An emerald [...] morrison Aleman oxygen saturation, oximetry 94 % [facility] pulse rate 87 /min Kmaron [...] Mata respiratory rate E&M 24 /min Benito aMta pulse rate 84 /min Benito Mata weight E&M 137 [lb_av] Benito Mata Body Mass Index (Ratio) 23.51 kg/m2 Portia Amos MD blood pressure, cuff size regular [facility] blood pressure, diastolic 93 mm[Hg] Ja rr blood pressure, systolic 169 mm[Hg] Jar ret pulse rate 63 /min Lucas oxygen saturation, oximetry 96 % respiratory rate E&M 16 /min Lucas weight E&M 137 [lb_av] Lucas height E&M 64 [in_i] Lucas Body Mass Index (Ratio) 23.34 kg/m2 Ricky Albright blood pressure, cuff size regular [facility] blood pressure, diastolic 95 mm[Hg] Ja blood pressure, systolic 176 mm[Hg] [facility] pulse rate 58 /min Lucas [...] E&M 16 /min pulse rate 64 /min [facility] weight E&M 143 [lb_av] height E&M 64 [in_i] blood pressure, resting Yes Kill n Brody ALLERGIES No Known Drug Allergies HISTORY OF MEDICATION USE Medication Status Instructions Dates Provider Indications [facility] mentviridiana chlorthalidone 25 mg tablet active TAKE 1 TABLET BY MOUTH DAILY Steven Shaw NP celecoxib 200 mg capsule active [...] MD Jardiance 10 mg tablet completed - Steven Shaw NP metformin (Glucophage XR) 500 mg [...] Payer name Policy type / Coverage type [place] [employer] party ID AARP MEDICARE ADVANTAGE ([facility] COMPLETE PPO) Other [id number] ADVANCE DIRECTIVES Name Date DISCUSSED - NO DECISION MADE TREATMENT PLAN Date Name Performer [id number],C,Per pcp Derrick Amos MD [id number],C,S tent to carotid. he should be on astatin but I am not sure. Derrick Amos MD [id number],C,N ot sure what he is on but he will see his PCP for a list of current meds B P today: 155/90 P rior BP: 176/100 (04/12/2023) Derrick Amos MD [id number],C,l ow risk for colonoscopy. BP is not well controlled, will have him come back in a week for BP check Derrick Amos MD [id number],C,n ot well controlled W ill add olmesartan [...] ..... Take 1 tab twice daily Angel Quarles Cardiology:His updat ed medication list [...] andidate for hip surgery. Denies hx of CA or chest pain. He reports many years [...]
--- OUTSIDE RECORDS SUMMARY | 2025-01-12 17:54 | XMS_ITS ---
Author Organization [facility] Address [address] [address] [place] [address] Care Team Providers Care Breaker Oiler Name Role Phone HinsonHemalathaOwen Unavailable [phone] MEDICATIONS Medication SIG (Take, Route, Frequency, Duration) Notes Start Date End Date Status Losartan Potassium 50 MG 1 tablet Orally Once a day for 90 05/30/2023 Active SOCIAL HISTORY Sex Assigned At : Social History Observation Description Sex Assigned At Male Encounters Encounter Location Date Provider Diagnosis [place] [facility] [address] [facility] [address] [place] [address] 08/01/2024 Owen Hinson Chronic kidney disease, stage [...] * CRISS CALERODOB: [birth year] (74 yo M)Acc No.[id number]:08/01/2024 Progress Notes Patient: CRISS CALERO Provider: MD JOSÉ MIGUEL, F.A.C.P, F.A.S.N. :1950 Age:74 Y Sex:Male Date:08/01/2024 Address:[address] [place] [address] Subjective: * Chief Complaints: * * Medical [...] Treatment: * Billing Information: * Visit Code: [id number] Office Visit, Est Pt., Level 4. * Procedure Codes: * Sign off status: Pending * Provider: MD JOSÉ MIGUEL, F.A.C.P, F.A.S.N. Date: 08/01/2024
--- OUTSIDE RECORDS SUMMARY | 2025-01-12 17:54 | XMS_ITS ---
Author Organization [facility] Address [address] [place] [address] Care Team Providers Care Co Pilot Name Role Phone Sravan Owen Angie [phone] MEDICATIONS Medication SIG (Take, Route, Fr equency, Duration) Notes Start Date End Date Status Calcitriol 0.25 MCG 1 capsule Orally Onc e a day for 90 day(s) 08/01/2024 04/28/2025 Active SOCIAL HISTORY Sex Assigned At : Social History Observation Description Sex Assigned At Male Encounters Encounter Location Date Provider Diagnosis [place] [facility] [address] [facility] [address] [place] [address] 08/01/2024 Owen Hinson PLAN OF TREATMENT Medication Medication Name Sig Start Date Stop Date Notes Calcitriol 0.25 MCG 1 capsule Orally Onc e a day for 90 day(s) 08/01/2024 04/28/2025 Progress Notes * MAJOADOLFO CRISSDOB: [birth year] (74 yo M)Acc No.[id number]:08/01/2024 Patient: CRISS CALERO :1950 Age:74 Y Sex:Male Address:[address] [place] [address] * Refills Start Calcitriol Capsule, 0.25 MCG, Orally, 90 Capsule, 1 capsule, Once a day, 90 day(s), Refills=2 * true * Date:
--- OUTSIDE RECORDS SUMMARY | 2025-01-12 17:55 | XMS_ITS | Clinical Summary ---
Author Organization [facility] [email or web address] Address [address] [place] [address] Care Team Providers Care Assembler Hydraulic Backhoe Name Role Phone Unavailable Primary Care Provider Unavailabl e Source Comments [facility] [email or web address],non-owned Affiliates and Associated Physician Practices is amultiple site organization consisting of ambulatory clinics and hospital sitesin [place], [place], [place] and [place]. This disclosure is being madepursuant to the Care Everywhere program and may not contain all information available regarding this patient. Last updated 18.[facility] [email or web address] Allergies No known active allergies Medications * [...] Date Recorded PHQ2 TOTAL SCORE 0 03/07/2023 [facility] - Occupational [...] place to sleep or slept in a prison (including now)? No 03/03/2023 Sex and Gender [...] this topic Medical Devices Implanted Type Area Digital Engineer Device Identifier Shelf Expiration Date Model / Serial / Lot Stent Enroute [employer] Flx 7mm .065in 40mm Implanted:Qty : 1 on 03/05/2023 by Betty Crane DO at [facility] Stent - Vascular Right: Arterial Retailigence [facility] 04/16/2025 [id number] S / / [id number] Description:IMPLANTED RIGHT CAROTID ARTERY Insurance [facility] MANAGED MEDICARE ADV Advance Directives * Full Code (Latest Code Status on File) Date Activated Date Inactivated Comments 03/03/2023 5:15 AM 03/08/2023 8:02 PM
--- OUTSIDE RECORDS SUMMARY | 2025-01-12 17:55 | XMS_ITS | Patient Health Record ---
Author Organization [facility] Address [address] [place] [address] Care Team Providers Care Clinical Operations Leader Name Role Phone HinsonHemalathaOwen Unavailable [phone] REASON FOR REFERRAL No Information MEDICATIONS Medication [...] Hyperglycemia due to type 2 diabetes mellitus ([id number] ) Problem Chronic obstructive pulmonary disease with (acute) exacerbation (J44.1) Active confirmed Acute exacerbation of chronic obstructive airways disease (828815456) Problem Chronic kidney disease, stage 2 (mild) (N18.2) Active confirmed Chronic kidne y disease stage 2 (683763171) Problem Other proteinuria (R80.8) Active confirmed Proteinuria (52024859) Problem Essential hypertension (I10) Active confirmed Essential hypertension (93167585) Encounters Encounter Location Date Provider Diagnosis [place] [facility] [address] [address] 01/23/2024 Owen Hinson Chronic kidney disease, stage 2 (mild) N18.2 ; Other proteinuria R80.8 ; Type 2 diabetes mellitus with hyperglycemia E11.65 ; Chronic obstructive pulmonary disease with (acute) exacerbation J44.1 and Essential hypertension I10 [place] [facility] [address] [facility] [address] [place] [address] 08/01/2024 Owen Hinson Chronic kidney disease, stage 2 (mild) N18.2 ; Other proteinuria R80.8 ; Type 2 diabetes mellitus with hyperglycemia E11.65 ; Chronic obstructive pulmonary disease with (acute) exacerbation J44.1 and Essential hypertension I10 [place] [facility] [address] [facility] [address] [place] [address] 08/01/2024 Owen Hinson ASSESSMENTS Encounter Date Diagnosis [...]
--- OUTSIDE RECORDS SUMMARY | 2025-01-12 17:55 | XMS_ITS ---
Author Organization [facility] Address [address] [place] [address] Care Team Providers Care Senior Program Manager Name Role Phone SravanHemalathaOwen Unavailable [phone] MEDICATIONS Medication SIG (Take, Route, Frequency, Duration) Notes Start Date End Date Status Calcitriol 0.25 MCG 1 capsule Orally corrine ry other day for 90 05/30/2023 02/24/2024 Active Losartan Potassium 50 MG 1 tablet Orally Once a day for 90 05/30/2023 Active Ergocalciferol 1.25 MG (19970 UT) 1 capsule Orally Once a week for 90 day(s) 08/29/2023 05/25/2024 Active SOCIAL HISTORY Sex Assigned At : Social History Observation Description Sex Assigned At Male Encounters Encounter Location Date Provider Diagnosis [place] [facility] [address] [facility] [address] [place] [address] 01/23/2024 Owen Hinson Chronic kidney disease, stage [...] * CRISS CALERODOB: [birth year] (74 yo M)Acc No.[id number]:01/23/2024 [facility] Notes Patient: CRISS CALERO Provider: MD JOSÉ MIGUEL, Fabian, F.A.S.N. :1950 Age:73 Y Sex:Male Date:01/23/2024 Address:[address] [place] [address] Subjective: * Chief Complaints: * * Medical History: * Medications: Taking Losartan Potassium 50 MG Tablet 1 tablet Orally Once a day , Taking Calcitriol 0.25 MCG Capsule 1 capsule Orally every other day , stop date 02/24/2024, Taking Ergocalciferol 1.25 MG (52442 UT) Capsule 1 capsule Orally Once a week , stop date 05/25/2024 Objective: Assessment: * Assessment: 1. Chronic kidney disease, stage 2 (mild) - N18.2 2. Other proteinuria - R80.8 3. Type 2 diabetes mellitus with hyperglycemia - E11.65 4. Chronic obstructive pulmonary disease with (acute) exacerbation - J44.1 5. Essential hypertension - I10 Plan: * Treatment: * Billing Information: * Visit Code: 11615 Office Visit, Est Pt., Level 4. * Procedure Codes: * Sign off status: Pending * Provider: MD JOSÉ MIGUEL, Fabian, F.A.S.N. Date: 01/23/2024
== END 2025-01-12 15:52 | disposition home or self-care (01) ==
PROVIDERS: PCP Internal Medicine; Visit Provider Orthopaedic Surgery
DX: I65.23 Occlusion and stenosis of bilateral carotid arteries (principal)
CPT/HCPCS: 93880

== ENCOUNTER 2025-01-25 22:41 | Inpatient (IN) | payer MEDICARE, SELFPAY ==
--- NOTE | ~2025-01-25 | XR_ITS ---
Clinical Indication: Shortness of breath PA and lateral views of the chest: Comparison: 06/27/2024 Findings: The lungs are clear, without evidence of focal consolidation or pleural effusion. Cardiome diastinal silhouette is within normal limits. Bones and soft tissues are unremarkable. Impression: Normal chest. Reviewed, dictated and finalized at location . Impression: Normal chest.
--- NOTE | ~2025-01-25 | XR_ITS ---
EXAMINATION: XR chest 1V portable Exam Date/Time: 01/27/2025 13:38 CDT HISTORY: re eval, sob, copd exacerbat Comparison: 01/25/2025. RESULT: Lines, tubes, and devices: Cervical fusion hardware. Surgical clips over the right lung apex. Lungs and pleura: Clear. Cardiomediastinal silhouette: Stable. Other: No acute osseous or upper abdominal finding. IMPRESSION: No acute cardiopulmonary process. Reviewed, dictated and finalized at location K.
--- OUTSIDE RECORDS SUMMARY | 2025-01-25 22:43 | XMS_ITS | Clinical Summary ---
Author Organization [facility] Facility Address [address] [facility] [address] [address] Care Team Providers Care Art Teacher Name Role Phone Naila Moreno MD Primary Care Provider [phone] Social History Tobacco Use Types Packs/Day Years [...] patient's age to complete this topic Insurance [facility] Medicare Care Teams Art Teacher Relationship Specialty Start Date End Date Naila Moreno MD [address], [address] [place] [address] PCP - General Internal Medicine 11/30/23
--- OUTSIDE RECORDS SUMMARY | 2025-01-25 22:44 | XMS_ITS | Data Portability ---
Author Organization [facility] [employer], Main Office Address [address] [place] [address] Care Team Providers Care Health And Physical Education Teacher Name Role Phone NAILA MORENO Primary Care Provider NAILA MORENO Referring Provider [phone] MIGUEL A BALDERRAMA [employer] DUNCAN SUAREZ [employer] Officer MIGEL AMOS [employer] SUBHA FLETCHER General Surgeon [phone] BAILEY HERNANDEZ Orthopedic Surgeon Assessment Encounter Date Assessment Date Assessment LastModified by Organization Details LastModified Time 08/27/2024 08/27/2024 Assessment: Dysphonia Postnasal drip Nicotine smoke: 1 ppd 5940-4069 (quit 12 years in between) = 41 pack years Mild COPD RUL nodule Hypertension Plan: The following were reviewed and explained to the patient: Chest CT 09/21/22 7 mm RUL nodule Chest CT 03/07/24 no acute abnormality Chest CT 05/13/24 5 mm RUL nodule [facility] hospitalization 05/13/24 - 05/14/24 discharged on azithromycin, prednisone, Trelegy and albuterol inhalers [place] hospitalization 05/26/24 - 05/30/24 Lab data 06/04/24 [...] positive Maribel. Positive Neer and Brandon. Positive Glenwood's. X-rays of the shoulder were reviewed, demonstrating [...] Positive Maribel. Positive Neer and Brandon. Positive Glenwood's. Motor: 5/5 strength. Limited by pain Sensation: [...] one, free + total, serum 2024 025 [email or web address] [facility] - Outpatient Lab, [address] [place] [address], [address], 11/20/2024 12:46:04 lipid panel, serum 2024 025 [email or web address] Not available 11/20/2024 12:46:03 CMP, serum or plasma 2024 025 [email or web address] Not available 12/16/2024 20:02:46 CBC w/ auto diff 2024 025 PAZ Not available 12/16/2024 20:02:46 TSH + free T4, serum 2024 025 [email or web address] Not available 11/20/2024 12:46:04 vitamin D, 25-hydrox y, total, serum 2024 025 [email or web address] [facility] - Outpatient Lab, [address] [place], [address], 11/20/2024 12:46:04 microalbu min, urine 2024 025 [email or web address] Not available 11/20/2024 12:46:02 glycohemo globin, total, blood 2024 025 [email or web address] Not available 11/20/2024 12:46:02 vitamin B12 + folate, serum or blood 2024 025 [facility], [address] [place], [address], 11/20/2024 12:46:04 testoster one, free + total, serum 2024 025 [email or web address] [facility] Outpatient Lab, [address] [place], [address], 10/07/2024 12:29:42 lipid panel, serum 2024 025 [email or web address] Not available 10/07/2024 12:29:40 CMP, serum or plasma 2024 025 [email or web address] Not available 10/07/2024 12:29:41 CBC w/ auto diff 2024 025 [email or web address] Not available 10/07/2024 12:29:41 TSH + free T4, serum 2024 025 [email or web address] Not available 10/07/2024 12:29:41 vitamin D, 25-hydrox y, total, serum 2024 025 [email or web address] [facility] Outpatient Lab, [address] [place], [address], 10/07/2024 12:29:42 microalbu min, urine 2024 025 [email or web address] Not available 10/07/2024 12:29:39 glycohemo globin, total, blood 2024 025 [email or web address] Not available 10/07/2024 12:29:40 vitamin B12 + folate, serum or blood 2024 025 [email or web address] [facility] - Outpatient Lab, [address] [place], [address], 10/07/2024 12:29:42 gram stain, sputum 2023 [email or web address] [place] [address] - Outpatient Lab, [address] [place], [address], 09/04/2024 15:26:10 culture, sputum 2023 024 [facility] Outpatient Lab, [address] [place], [address], 08/28/2024 09:23:[address] referral - Please call patient to schedule an appointme nt. Thank you. 2024 025 NEO Hare MD, [address] [facility], [address], [place], [address], 11/27/2024 11:20:42 nephrolog ist referral - Please call patient to schedule an appointme nt. Thank you. 2024 025 NEO Hinson MD (Nephrology, [address], [address], [place], [address], 11/27/2024 16:30:50 vascular surgeon referral - Please call patient to schedule an appointme nt. Thank you. 2024 025 [place], [address], [address], [place], [address], 11/27/2024 10:45:31 orthopedi c surgeon referral - Please call patient to schedule an appointme nt. Thank you. 2024 025 NEO Wilkins, [address] [facility] [address], [address], [place], [address], 11/27/2024 10:40:31 gastroent erologist referral - Please call patient to schedule an appointme nt. Thank you. 2024 025 [facility], [address], [id number], [place], [address], 12/01/2024 10:10:38 podiatris t referral - Please call patient to schedule an appointme nt. Thank you. 2024 025 [email or web address] Miguel A Joanna DPM, [address], [address], [place], [address], 12/04/2024 10:59:02 cardiolog ist referral - Please call patient to schedule an appointme nt. Thank you. 2024 025 [email or web address] [place], [address], [address], [place], [address], 12/25/2024 09:41:37 gastroent erologist referral - Please call patient to schedule an appointme nt. Thank you. 2024 025 [facility], [address], [address], [place], [address], 12/01/2024 10:10:37 physical therapist referral - Please schedule pt for L shoulder. Thanks 2024 025 [email or web address] [facility] [place], [address] [facility], [place], [address], 10/12/2024 20:27:32 nephrolog ist referral - Please call patient to schedule an appointme nt. Thank you. 2024 025 [email or web address] Owen Hinson MD (Nephrology, [address], [address], [place], [address], 12/25/2024 09:41:35 orthopedi c surgeon referral 2024 025 Bailey Hernandez MD, [address] [facility], [place], [address], 10/08/2024 17:47:12 orthopedi c surgeon referral - Please call patient to schedule. 2024 025 [email or web address] Bailey Hernandez MD, [address] [facility], [place], [address], 10/08/2024 17:47:11 gastroent erologist referral - Please call patient to schedule an appointme nt. Thank you. 2024 025 kendra Childers MD, [address] [facility], [address], [place], [address], 11/24/2024 17:58:06 cardiolog ist referral 2024 025 [email or web address] [place], [address] [facility], [address], [place], [address], 10/08/2024 17:46:51 gastroent erologist referral - Please call patient to schedule an appointme nt. Thank you. 2024 025 kendra Childers MD, [address] [facility], [address], [place], [address], 12/23/2024 08:40:[address] referral - Please call patient to schedule an appointme nt. Thank you. 2024 025 NEO Hare MD, [address] [facility], [address], [place], [address], 10/23/2024 12:20:31 podiatris t referral 2024 025 [email or web address] Miguel A Balderrama DPM, [address] [facility], [address], [place], [address], 10/08/2024 17:46:50 ENT surgery referral - Please call patient to schedule. 2023 024 [email or web address] 2 Barbara Jolly [employer]UX UNIX ENGINEER, [address], [place], [address], 11/25/2024 08:19:42 Procedures injection /aspirati on joint/bur sa (PROC) 2024 025 [email or web address] In-Office Order, Internal Use Only DO Not Attach Compendium DO Not Attach Compendium, Do Not Delete/merge, [id number] 10/08/2024 14:40:14 Surgeries None recorded. Imaging MRI, shoulder, w/o contrast - Please contact pt to schedule apt. Thanks [address], [address], [place], [address], 12/05/2024 19:53:41 Medication Orders Celebrex 200 mg capsule [address] [facility], [address] [place] [address], [id number], 12/05/2024 19:53:41 atorvasta tin 40 mg tablet 2024 025 [facility], [address] [place] [address], [id number], 11/20/2024 12:44:48 metoprolo l succinate ER 50 mg tablet,ex tended release 24 hr 2024 [facility], [address] [place], [address], 11/20/2024 12:44:49 bupivacai ne HCl 0.5 % (5 mg/mL) injection solution [address] [facility] [address] [facility], [address] [place] [address], [address], 10/12/2024 20:27:32 Kenalog 10 mg/mL suspensio n for injection [address] [facility] [address] [facility], [address] [place] [address], [address], 10/12/2024 20:27:32 Mobic 15 mg tablet [address] [facility], [address] [place] [address], [address], 10/12/2024 20:27:32 meloxicam 7.5 mg tablet 2024 025 [facility], [address] [place] [address], [address], 10/07/2024 12:34:00 ipratropi um bromide 42 mcg (0.06 %) nasal spray 2023 024 [facility], [address] [place] [address], [address], 08/27/2024 09:26:59 albuterol sulfate HFA 90 mcg/actua tion aerosol inhaler 2023 024 [facility], [address] [place] [address], [address], 08/27/2024 09:26:55 Anoro Ellipta 62.5 mcg-25 mcg/actua tion powder for inhalatio n 2023 024 [facility], [address] [place] [address], [id number], 08/27/2024 09:26:56 Patient TargetsNo targets recorded. Patient Instructions Encounter Date Encounter Id Patient Instructions Last Modified By Organization Details Last Modified Time 10/07/2024 [id number] diabetic eye exam* [email or web address] Not available 10/07/2024 12:29:43 11/20/2024 [id number] diabetic eye exam* [email or web address] Not available 11/20/2024 12:46:05 Reason for Referral ENT Surgery Referral for Dys phonia Please call patient to schedule. Referring Physician: Duncan Suarez, Pulmonary Disease, Encounter Date: 08/27/2024 [employer] Referral for Type 2 diabetes mellitus without complication Referring Physician: Naila Moreno Internal Medicine, Encounter Date: 10/07/2024 [employer] Referral for Co ronary arteriosclerosis Referring Physician: Naila Moreno Internal Medicine, Encounter Date: 10/07/2024 Neurologist Referral for Tra nsient cerebral ischemia Please call patient to schedule an appointment. Thank you. Referring Physician: Naila Moreno Internal Medicine, Encounter Date: 10/07/2024 Chef French Referral for Pr oteinuria Please call patient to schedule an appointment. Thank you. Referring Physician: Naila Moreno Internal Medicine, Encounter Date: 10/07/2024 Orthopedic Surgeon Referral for Pain of right knee joint Please call patient to schedule. Referring Physician: Naila Moreno Internal Medicine, Encounter Date: 10/07/2024 Slitter Creaser Slotter Helper Referral for Melendez's esophagus Please call patient to schedule an appointment. Thank you. Referring Physician: Naila Moreno Internal Medicine, Encounter Date: 10/07/2024 Slitter Creaser Slotter Helper Referral for Liver enzymes level above reference [...] Bailey Hernandez, Orthopedic Surgery, Encounter Date: 10/08/2024 [employer] Referral for Type 2 diabetes mellitus without complication Please call patient to schedule an appointment. Thank you. Referring Physician: Naila Moreno Internal Medicine, Encounter Date: 11/20/2024 [employer] Referral for Co ronary arteriosclerosis Please call patient to schedule an appointment. Thank you. Referring Physician: Naila Moreno Internal Medicine, Encounter Date: 11/20/2024 Neurologist Referral for Tra nsient cerebral ischemia Please call patient to schedule an appointment. Thank you. Referring Physician: Naila Moreno Internal Medicine, Encounter Date: 11/20/2024 Chef French Referral for Pr oteinuria Please call patient to schedule an appointment. Thank you. Referring Physician: Naila Moreno [facility], Encounter Date: 11/20/2024 Slitter Creaser Slotter Helper Referral for Melendez's esophagus Please call patient to schedule an appointment. Thank you. Referring Physician: Naila Moreno [facility], Encounter Date: 11/20/2024 Slitter Creaser Slotter Helper Referral for Liver enzymes level above reference range Please call patient to schedule an appointment. Thank you. Referring Physician: Naila Moreno [facility], Encounter Date: 11/20/2024 Orthopedic Surgeon Referral for Pain of left shoulder joint Please call patient to schedule an appointment. Thank you. Referring Physician: Naila Moreno [facility], Encounter Date: 11/20/2024 Vascular Surgeon Referral fo r Carotid artery stenosis Please call patient to schedule an appointment. Thank you. Referring Physician: Naila Moreno [facility], Encounter Date: 11/20/2024 Results Created Date Observation Date Name Description Value Unit Range Abnormal Flag Note LastModifiedBy Organization Detail LastModifiedTime 08/27/20 24 08/30/2024 CULTU RE, SPUTU M/LOW ER RESPI RATOR Y culture, sputum/lower respiratory SEE NOTE abnormal CULTU RE, SPUTU M/LOW ER RESPI RATOR Y Micro Numbe r: [id number] Test Statu s: Final Speci men [...] or addit ional testi ng. Not Available [employer] [facility] [address] [place], [address], 08/30/2024 09:54:32 08/08/20 24 06/18/2024 compl ete PFT w/ post [facility] hodil ator altagracia metry * No observ ation record ed. BARCODE Not Available 2023 11:25:37 10/01/19 25 10/01/2024 imagi ng/di agnos tic resul t No observ ation record ed. [address] [facility], [place], [address], 10/01/2024 21:41:55 12/22/19 25 12/21/2024 imagi ng/di agnos tic resul t No observ ation record ed. [address], [place], [address], 12/21/2024 13:10:41 01/03/20 25 01/02/2025 imagi ng/di agnos tic resul t No observ ation record ed. [facility] [address], [place], [address], 01/02/2025 13:25:36 01/14/20 25 01/12/2025 abril banks/saul frausto tic resul t No observ ation record ed. [facility] [address], [place], [address], 01/13/2025 11:35:03 Result Notes None recorded. Problems Name Problem SNOMED Code Status Onset Date Resolution Date Notes Provider Name and Address Organization Details Recorded Time Carotid artery stenosis 74020183 Active 2022 Not Available [facility] 4 22:24:36 Coronary arteriosc lerosis 27009874 Active 2022 Not Available [facility] 4 22:24:36 Vitamin D deficienc y 10283445 Active 2022 Not Available [facility] 4 22:24:36 Carotid artery stenosis 60652380 Active 2022 Not Available [facility] 4 22:24:36 Male hypogonad ism 72202494 Active 2022 Not Available [facility] 4 22:24:36 Diabetic periphera l neuropath y 527107143 Active 2022 Not Available [facility] 4 22:24:36 Bilateral foot congenita l pes cavus 46322637224 254502 Active 2022 Not Available [facility] 4 22:24:35 Melendez's esophagus 882004912 Active 2022 Not Available [facility] 4 22:24:36 Transient cerebral ischemia 072530131 Active 2023 Naila albright MD [address], [address], [place], [address] , [facility] [employer] [facility] 4 12:46:26 Serum vitamin B12 below reference range 715531938 Active 2023 Naila albright MD [address], [address], [place], [address] , [facility] 4 12:46:26 Chronic kidney disease 542612274 Active 2023 Naila albright MD [address], [address], [place], [address] , [place] [facility] 4 10:23:58 Osteoarth ritis of right knee joint 87955552922 9100 Active 2023 ANGIE Martinez [address], [address], [place], [address] , [place] [facility] 4 16:55:12 Penile candidias is 001311664 Active 2023 Naila albright MD [address], [address], [place], [address] , [place] [facility] 4 14:16:16 Chronic obstructi ve pulmonary disease 43054446 Active 2023 Naila albright MD [address], [address], [place], [address] , [place] [facility] 4 14:16:16 Mild chronic obstructi ve pulmonary disease 824607002 Active 2023 Duncan Suarez MD [address], [address], [place], [address] , [place] [facility] 4 16:48:00 Posterior rhinorrhe a 81075680 Active 2023 Duncan Suarez MD [address], [address], [place], [address] , [place] [facility] 4 17:22:34 Dysphonia 78633899 Active 2023 Duncan Suarez MD [address], [address], [place], [address] , [place] [facility] 4 09:26:26 Liver enzymes level above reference range 703626613 Active 2024 Naila albright MD [address], [address], [place], [address] , [place] [facility] 5 12:14:26 Proteinur ia 21077905 Active 2024 Naila albright MD [address], [address], [place], [address] , [place] [facility] 5 12:14:26 Chronic pain 23395009 Active 2024 Naila albright MD [address], [address], [place], [address] , [place] [facility] 5 12:14:26 Type 2 diabetes mellitus without complicat ion 679104669 Active 2024 Naila albright MD [address], [address], [place], [address] , [place] [facility] 5 12:14:26 Pain of right knee joint 26172337888 4100 Active 2024 Naila albright MD [address], [address], [place], [address] , [place] [facility] 5 12:14:26 Abdominal pain 96146137 Active 2024 Naila albright MD [address], [address], [place], [address] , [place] [facility] 5 12:14:26 Pneumonia 872115134 Active 2024 Naila albright MD [address], [address], [place], [address] , [place] [facility] 5 12:14:26 Acute allergic reaction 469950577 Active 2024 Naila albright MD [address], [address], [place], [address] , [place] [facility] 5 12:14:26 Pain of bilateral hip joints 75168540852 592593 Active 2024 Naila albright MD [address] [facility], [address], [place], [address] , [facility] [employer] 5 12:14:26 Pain of left shoulder joint 07346477496 815529 Active 2024 Naila albright MD [address] [facility], [address], [place], [address] , [facility] [employer] [facility] 5 12:32:15 Chronic back pain 232295733 Active [address]s from Dr Villatoro Not Available [facility] 4 22:24:35 Impacted cerumen 65132535 Completed Not Available [facility] 3 04:53:49 Gastroeso phageal reflux disease 443167648 Active Not Available [facility] 4 22:24:36 Microalbu minuria 369623265 Active 2021 Not Available [facility] 4 22:24:36 Restless legs 07318745 Active 2017 Not Available [facility] 4 22:24:36 Sinusitis 02471901 Completed Not Available [facility] 3 04:53:50 Solitary nodule of lung 513006210 Active 2022 Not Available [facility] 4 22:24:36 Herpes zoster 9159041 Completed Not Available [facility] 3 04:53:50 Pain of hip region 60676394 Completed Not Available [facility] 3 04:53:50 Dysuria 79592693 Completed Not Available [facility] 3 04:53:50 Hyperlipi demia 87560766 Active Not Available [facility] 4 22:24:36 Essential hypertens ion 57286780 Active Not Available [employer] 4 22:24:36 Diarrhea 22638238 Completed Not Available [facility] 3 04:53:51 Polyp of colon 52567756 Active Not Available [facility] 4 22:24:36 Notes:Medical History: TIA 2 [...] stent 2022 Cholecystectomy 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 Procedures Surgical History Date Name Laterality Status Provider Name and Address Organization Details Recorded Time 10/08/19 Ortho - Cortisone Injection completed Bailey Hernandez MD [address] [facility], [facility] [address], [place], [address], [facility] [employer] 10/08/2024 15:44:23 06/04/20 24 [id number]|2025-01-25 23:08:43|2025-01-25 23:08:43|ED.SOB||||"HPI - SOB/Dyspnea General Chief Complaint: Shortness of Breath/Dyspnea Stated Complaint: Shortness of breath, cough, wheezing x 2 days Time Seen by Provider: 01/25/25 23:02 Source: patient Mode of arrival: ambulatory Limitations: no limitations History of Present Illness HPI Narrative: This is a 74 year old male that presents to the ER for shortness of breath. Reports associated productive cough. History of COPD. Denies fevers, chest pain, lower extremity edema. Related Data Home Medications Medication Instructions Recorded Confirmed Last Taken Type albuterol sulfate 90 mcg/actuation 2 puff inhalation Q6H PRN 05/26/24 12/29/24 Unknown History aerosol inhaler (Ventolin HFA) Shortness Of Breath Or Wheezing calcitriol 0.25 mcg capsule 0.25 mcg PO EVERY OTHER DAY 05/26/24 12/29/24 05/24/24 History empagliflozin 10 mg tablet 10 mg PO DAILY 05/26/24 12/29/24 05/25/24 History (Jardiance) ergocalciferol (vitamin D2) 1,250 1,250 mcg PO WEEKLY 05/26/24 12/29/24 05/24/24 History mcg (50,000 unit) capsule metformin 500 mg tablet,extended 500 mg PO BID 05/26/24 12/29/24 05/24/24 History release 24 hr methocarbamol 750 mg tablet 750 mg PO TID PRN muscle spasms 05/26/24 12/29/24 Unknown History metoprolol succinate 50 mg 50 mg PO DAILY 05/26/24 12/29/24 Unknown History tablet,extended release 24 hr pregabalin 75 mg capsule 75 mg PO BID 05/26/24 12/29/24 Unknown History losartan 25 mg tablet 25 mg PO DAILY 12/16/24 12/29/24 Unknown History Allergies Allergy/AdvReac Type Severity Reaction Status Date / Time No Known Allergies Allergy Verified 01/25/25 22:42 Review of Systems Review of Systems: CONSTITUTIONAL: Denies fever CARDIOVASCULAR: Denies chest pain, or edema. RESPIRATORY: Reports cough and dyspnea. All systems reviewed & are unremarkable except as noted in HPI and below PMFSH Past Medical History Medical History Diabetes COPD (chronic obstructive pulmonary disease) Hypertension Hyperlipidemia COPD (chronic obstructive pulmonary disease) Diabetes Hypertension Surgical History Surgical History H/O neck surgery Previous back surgery History of hip surgery No pertinent past surgical history Family History Family History (Updated 12/29/24 @ 13:37 by Laura Franklin CMA) Mother Acute myocardial infarction Congestive heart failure Chronic obstructive pulmonary disease Hypertension Asthma Sibling History of blood clots Colon cancer Grandparent Cerebrovascular accident Social History Social History Smoking packs per day: 1 Smoking cigarettes per day: 20.0 Years smoked: 40 Smoking pack-years: 40.00 Smoking status: Former smoker Tobacco type: cigarettes Alcohol intake: never Substance use: former Substance use type: does not use Do You Feel Safe in your Home?: Yes Lack of Transportation: No Lack of Food: Sometimes True Current Housing: I Have Housing Concerned About Future Housing: No Difficulty Paying Gas/Electric Bills: YES Difficulty Paying for Meds: YES Currently Unemployed: No Education: High School Diploma/GED Difficulty w/ Childcare or Family Care: No Living arrangements: alone Occupation/Education: retired Spiritual care concerns: No Exam Narrative: GENERAL: Elderly, well-nourished, and in no acute distress. HEAD: Normocephalic, atraumatic. EYES: EOMI. ENT: Nares clear, no rhinorrhea or epistaxis. Mucous membranes moist. Oropharynx without tonsillar hypertrophy exudate or other lesions. NECK: Supple. No adenopathy or masses. CHEST: Diffuse expiratory wheezing. No rales or rhonchi HEART: Regular rate and rhythm. No murmur heard. Normal peripheral pulses. EXTREMITIES: Normal range of motion. No edema. SKIN: Warm, dry, no rash. NEURO: No focal deficits. Alert and oriented x3. PSYCH: Normal mood and affect Course Course Emergency Course: Patient continues with diffuse wheezing and shortness of breath after multiple nebulizer treatments, solu-medrol, mag. Will consult hospitalist for admission Consultations Consultation #1: Spoke with hospitalist about patient and workup who accepts admission Date: 01/26/25 Vital Signs Vital signs: Vital Signs Temperature 97.9 F 01/25/25 22:48 Pulse Rate 72 01/25/25 22:48 Respiratory Rate 18 01/25/25 22:48 Blood Pressure 163/64 H 01/25/25 22:48 Pulse Oximetry 98 01/25/25 22:48 Temperature 98.0 F 01/26/25 02:20 Pulse Rate 82 01/26/25 02:20 Respiratory Rate 14 01/26/25 02:20 Blood Pressure 171/99 H 01/26/25 02:20 Pulse Oximetry 96 01/26/25 02:20 Oxygen Delivery Room Air 01/26/25 00:37 MDM - SOB/Dyspnea MDM Narrative Medical decision making narrative: Patient presents to the emergency department for COPD exacerbation. Oxygen saturation is normal on room air. He is afebrile and nontoxic appearing. Cbc without leukocytosis. Metabolic panel with mild elevation in creatinine to 1.34. Influenza, RSV and COVID screens are negative. Patient continues with diffuse wheezing and shortness of breath after multiple nebulizer treatments, solu-medrol, mag. Hospitalist consulted for admission Differential Diagnosis Differential diagnosis: Likely acute exacerbation of chronic obstructive airways disease, congestive heart failure and community acquired pneumonia Lab Data Attestation: I reviewed the patient's lab results. 01/25/25 23:24 01/25/25 23:24 Labs: Lab Results 01/25/25 Range/Units 23:24 WBC 6.1 (4.5-10.0) K/mm3 RBC 4.57 L (4.6-6.20) M/mm3 Hgb 13.5 L (14.0-18.0) g/dL Hct 41.3 L (42.0-52.0) % MCV 90.4 (80-100) fl MCH 29.5 (26-34) pg MCHC 32.7 (32-36) g/dl RDW 15.3 H (11.5-14.5) % Plt Count 244 (150-375) k/mm3 MPV 9.6 (7.4-10.4) fl Immature Gran % (Auto) 0.2 (0-0.5) % Neut % (Auto) 52.3 (45.5-73.1) % Lymph % (Auto) 31.1 (18.3-44.2) % [place] % (Auto) 11.6 H (2.6-8.5) % Eos % (Auto) 4.3 (0-4.4) % Baso % (Auto) 0.5 (0.2-1.2) % Lymph # (Auto) 1.90 (0.9-3.2) K/mm3 [place] # (Auto) 0.7 H (0.1-0.6) K/mm3 Eos # (Auto) 0.3 (0-0.3) K/mm3 Baso # (Auto) 0.0 (0.0-0.1) K/mm3 Abs Immat Gran (auto) 0.01 (0.00-0.031) K/mm3 Absolute Neuts (auto) 3.2 (1.3-6.7) K/mm3 Absolute Nucleated RBC 0.000 (0.0-0.012) K/mm3 Nucleated RBC % 0.0 (0.0-0.2) % PT 13.5 (11.1-14.7) Seconds INR 1.0 APTT 31.6 (22.3-36.8) Seconds Sodium 141 (137-145) mmol/L Potassium 4.1 (3.4-5.0) mmol/L Chloride 107 (98-107) mmol/L Carbon Dioxide 23 (22-30) mmol/L Anion Gap 11 (4-12) mmol/L BUN 28 H D (9-20) mg/dL Creatinine 1.34 H (0.7-1.3) mg/dL Estim Creat Clear Calc Not Reportable Estimated GFR 52 L (59 - ) Glucose 155 H (65-110) mg/dL Calcium 9.9 (8.4-10.2) mg/dL Total Bilirubin 0.9 (0.2-1.3) mg/dL AST 34 (17-59) U/L ALT 23 (6-50) U/L Alkaline Phosphatase 119 (38-126) U/L NT-Pro-B Natriuret Pep 121 H (19.9-100) pg/mL Total Protein 7.0 (6.3-8.2) g/dL Albumin 4.3 (3.5-5.1) g/dL Influenza A (RT-PCR) Negative (Negative) Influenza B (RT-PCR) Negative (Negative) RSV (RT-PCR) Negative (Negative) SARS-CoV-2 RNA (RT-PCR) Negative (Negative) ECG Data EKG #1: ECG completion date: 01/25/25 EKG Interpretation: normal rate, sinus rhythm, no ST changes and normal QT Critical Care Time Critical Care Time Critical Care Time: Yes Total Critical Care Time: 35 Discharge Plan Discharge Clinical Impression: COPD exacerbation Patient Disposition: Still a Patient Condition: Stable Patient Language: Iraqi Prescriptions: No Action oxycodone 5 mg tablet 2.5 mg PO Q4H PRN (Reason: pain) Qty: 20 0RF Trelegy Ellipta 100 mcg-62.5 mcg-25 mcg powder for inhalation 100-62.5-25 mcg blister with device 0RF losartan 25 mg tablet 25 mg PO DAILY lansoprazole 30 mg capsule,delayed release(DR/EC) 30 mg PO DAILY Qty: 90 3RF metoprolol succinate 50 mg tablet extended release 24 hr 50 mg PO DAILY methocarbamol 750 mg tablet 750 mg PO TID PRN (Reason: muscle spasms) ergocalciferol (vitamin D2) 1,250 mcg (50,000 unit) capsule 1,250 mcg PO WEEKLY Rx Instructions: sunday administration albuterol sulfate [Ventolin HFA] 90 mcg/actuation HFA aerosol inhaler 2 puff INHALATION Q6H PRN (Reason: Shortness Of Breath Or Wheezing) metformin 500 mg tablet extended release 24 hr 500 mg PO BID calcitriol 0.25 mcg capsule 0.25 mcg PO EVERY OTHER DAY pregabalin 75 mg capsule 75 mg PO BID Patient Comments: pt has not been taking routinely r/t side effects of fatigue Jardiance 10 mg tablet 10 mg PO DAILY insulin glargine [Lantus Solostar U-100 Insulin] 100 unit/mL (3 mL) insulin pen 10 unit subcut QPM Qty: 3 0RF (DME) pen needle, diabetic [BD Ultra-Fine Micro Pen Needle] 32 gauge x 1/4 needle See Rx Instructions .Route Qty: 100 0RF Rx Instructions: As directed oxycodone 5 mg tablet 2.5 mg PO Q4H PRN (Reason: pain) Qty: 20 0RF Follow-up/Referrals: Tiffanie,MD Naila [Primary Care Provider] - "
--- OUTSIDE RECORDS SUMMARY | 2025-01-25 22:44 | XMS_ITS ---
Author Organization [facility] Address [address] [place] [address] Care Team Providers Care Preparation Operator Name Role Phone Sravan Owen Angie [phone] MEDICATIONS Medication SIG (Take, Route, Fr equency, Duration) Notes Start Date End Date Status Calcitriol 0.25 MCG 1 capsule Orally Onc e a day for 90 day(s) 08/01/2024 04/28/2025 Active SOCIAL HISTORY Sex Assigned At : Social History Observation Description Sex Assigned At Male Encounters Encounter Location Date Provider Diagnosis [facility] [address] [facility] [address] [place] [address] 08/01/2024 Owen Hinson PLAN OF TREATMENT Medication Medication Name Sig Start Date Stop Date Notes Calcitriol 0.25 MCG 1 capsule Orally Onc e a day for 90 day(s) 08/01/2024 04/28/2025 Progress Notes * MAJOADOLFO CRISSDOB: [birth year] (74 yo M)Acc No.[id number]:08/01/2024 Patient: CRISS CALERO :1950 Age:74 Y Sex:Male Address:[address] [place] [address] * Refills Start Calcitriol Capsule, 0.25 MCG, Orally, 90 Capsule, 1 capsule, Once a day, 90 day(s), Refills=2 * true * Date:
--- OUTSIDE RECORDS SUMMARY | 2025-01-25 22:44 | XMS_ITS | CONTINUITY OF CARE DOCUMENT ---
Author Name cruz kitoctavio Address Unknown Organization [facility] Address [address] [address] [place] [address] Phone [phone] Care Team Providers Care Skull Grinder Name Role Phone Derrick Amos MD Unavailable CAITLIN RAMÍREZ MD Unavailable CAITLIN RAMÍREZ MD Unavailable [phone] PROBLEMS Condition Status Date Provider Notes Preop [...] In-person encounter Office Visit Steven Shaw NP [facility] - In-person encounter Office Visit Derrick Amos MD [facility] - In-person encounter Office Visit Derrick Amos MD [facility] Cardiology examination - In-person encounter Office Visit Derrick Amos MD [facility] TOBACCO ABUSE-QUIT - In-person encounter Office Visit Derrick Amos MD [facility] - In-person encounter Office Visit Derrick Amos MD [facility] - In-person encounter Office Visit Derrick Amos MD [facility] - In-person encounter Office Visit Derrick Amos MD [facility] CVA - In-person encounter Office Visit Derrick Amos MD [facility] - In-person encounter Office Visit Marshal Milner MD [facility] Preop examHypertensionDyslipidemiaDiabetes mellitusCOPDShortness of breathTOBACCO ABUSE-QUITArrhythmia VITAL SIGNS Date Observation Value Provider Body Mass Index (Ratio) 22.31 kg/m2 Arnie Shaw NP blood pressure, diastolic 101 mm[Hg] emerald Lim blood pressure, systolic 179 mm[Hg] Danna laura Lim oxygen saturation, oximetry 95 % [facility] 71 /[facility] respiratory rate E&M 12 /min [facility] weight E&M 130 [lb_av] [facility] height E&M 64 [in_i] [facility] blood pressure, cuff size regular An emerald [...] morrison Aleman oxygen saturation, oximetry 94 % [facility] pulse rate 87 /min Kmaron [...] Amos MD blood pressure, cuff size regular [facility] blood pressure, diastolic 93 mm[Hg] Ja rr blood pressure, systolic 169 mm[Hg] Jar ret pulse rate 63 /min Lucas oxygen saturation, oximetry 96 % respiratory rate E&M 16 /min Lucas weight E&M 137 [lb_av] Lucas height E&M 64 [in_i] Lucas Body Mass Index (Ratio) 23.34 kg/m2 Ricky Albright blood pressure, cuff size regular [facility] blood pressure, diastolic 95 mm[Hg] Ja blood pressure, systolic 176 mm[Hg] [facility] pulse rate 58 /min Lucas respiratory rate [...] pressure, diastolic, right arm 80 m m[Hg] [place] blood pressure, systolic, right arm 130 m m[Hg] blood pressure, diastolic 80 mm[Hg] Ki blood pressure, systolic 130 mm[Hg] Yane cuevas Brody oxygen saturation, oximetry 97 % respiratory rate E&M 16 /min pulse rate 64 /min [facility] weight E&M 143 [lb_av] height E&M 64 [in_i] blood pressure, resting Yes Kill n Brody ALLERGIES No Known Drug Allergies HISTORY OF MEDICATION USE Medication Status Instructions Dates Provider Indications [facility] mentviridiana chlorthalidone 25 mg tablet active TAKE 1 TABLET BY MOUTH DAILY Steven Shaw NP celecoxib 200 mg capsule active Zaida Shamar naproxen 500 mg tablet active Derrick Amos MD methocarbamol 750 mg tablet active Derrick Amos MD calcitriol 0.25 mcg capsule active Derrcik Amos MD losartan 50 mg tablet active Take 1 tablet by mouth twice a day Derrick Amos MD chlorthalidone 25 mg tablet completed Take 1 tablet by mouth once a day - Steven Shaw NP atorvastatin 40 mg tablet active TAKE 1 TABLET BY MOUTH EVERYDAY AT BEDTIME Derrick Amso MD Jardiance 10 mg tablet completed - [...] Derrick Cardenas smoking status Former smoker Derrick Aoms MD smoking, year quit 6 months Derrick [...] currently 1/2 Angel Quarles cigarette use yes [place] number of grandchildren Marshal Milner MD [...] Payer name Policy type / Coverage type [place] [employer] party ID AARP MEDICARE ADVANTAGE ([facility] COMPLETE PPO) Other [id number] ADVANCE DIRECTIVES Name Date DISCUSSED - NO DECISION MADE TREATMENT PLAN Date Name Performer [id number],C,Per pcp Derrick Amos MD [id number],C,S tent to carotid. he should be on astatin but I am not sure. Derrick Amos MD [id number],C,N ot sure what he is on but he will see his PCP for a list of current meds B P today: 155/90 P rior BP: 176/100 (04/12/2023) Derrick Amos MD [id number],C,l ow risk for colonoscopy. BP is not well controlled, will have him come back in a week for BP check Derrick Amos MD [id number],C,n ot well controlled W ill add olmesartan [...] andidate for hip surgery. Denies hx of VA or chest pain. He reports many years [...] completed Complex e/m visit add on Derrick Amso MD completed EKG Derrick Amos MD completed Complex e/m visit add on Derrick Amos MD completed EKG Derrick Amos MD completed Counseling LDCT Marshal Milner MD compl eted EKG Marshal Milner MD completed
--- OUTSIDE RECORDS SUMMARY | 2025-01-25 22:45 | XMS_ITS | Patient Health Record ---
Author Organization [facility] Address [address] [place] [address] Care Team Providers Care Filler Feeder Name Role Phone Sravan Owen Unavailable [phone] REASON FOR REFERRAL No Information MEDICATIONS Medication [...] Hyperglycemia due to type 2 diabetes mellitus (001887039597482 ) Problem Chronic obstructive pulmonary disease with (acute) exacerbation (J44.1) Active confirmed Acute exacerbation of chronic obstructive airways disease (974840088) Problem Chronic kidney disease, stage 2 (mild) (N18.2) Active confirmed Problem Other proteinuria (R80.8) Active confirmed Proteinuria (20019768) Problem Essential hypertension (I10) Active confirmed Essential hypertension (18262261) Encounters Encounter Location Date Provider Diagnosis [facility] [address] [place] [address] 08/01/2024 Owen Hinson Chronic kidney disease, stage 2 (mild) N18.2 ; Other proteinuria R80.8 ; Type 2 diabetes mellitus with hyperglycemia E11.65 ; Chronic obstructive pulmonary disease with (acute) exacerbation J44.1 and Essential hypertension I10 [facility] [address] [place] [address] 08/01/2024 Owen Hinson ASSESSMENTS Encounter Date Diagnosis [...]
--- OUTSIDE RECORDS SUMMARY | 2025-01-25 22:45 | XMS_ITS ---
Author Organization [facility] Address [address] [place] [address] Care Team Providers Care Job Placement Specialist Name Role Phone SravanHemalathaOwen Unavailable [phone] MEDICATIONS Medication SIG (Take, Route, Frequency, Duration) Notes Start Date End Date Status Calcitriol 0.25 MCG 1 capsule Orally corrine ry other day for 90 05/30/2023 02/24/2024 Active Losartan Potassium 50 MG 1 tablet Orally Once a day for 90 05/30/2023 Active Ergocalciferol 1.25 MG (54655 UT) 1 capsule Orally Once a week for 90 day(s) 08/29/2023 05/25/2024 Active SOCIAL HISTORY Sex Assigned At : Social History Observation Description Sex Assigned At Male Encounters Encounter Location Date Provider Diagnosis [facility] [address] [facility] [address] [place] [address] 01/23/2024 Owen Hinson Chronic kidney disease, stage [...] * CRISS CALERODOB: [birth year] (74 yo M)Acc No.[id number]:01/23/2024 Progress Notes Patient: CRISS CALERO Provider: MD JOSÉ MIGUEL, Fabian, F.A.S.N. :1950 Age:73 Y Sex:Male Date:01/23/2024 Address:[address] [place] [address] Subjective: * Chief Complaints: * * Medical History: * Medications: Taking Losartan Potassium 50 MG Tablet 1 tablet Orally Once a day , Taking Calcitriol 0.25 MCG Capsule 1 capsule Orally every other day , stop date 02/24/2024, Taking Ergocalciferol 1.25 MG (47176 UT) Capsule 1 capsule Orally Once a week , stop date 05/25/2024 Objective: Assessment: * Assessment: 1. Chronic kidney disease, stage 2 (mild) - N18.2 2. Other proteinuria - R80.8 3. Type 2 diabetes mellitus with hyperglycemia - E11.65 4. Chronic obstructive pulmonary disease with (acute) exacerbation - J44.1 5. Essential hypertension - I10 Plan: * Treatment: * Billing Information: * Visit Code: 76490 Office Visit, Est Pt., Level 4. * Procedure Codes: * Sign off status: Pending * Provider: MD JOSÉ MIGUEL, Fabian, F.A.S.N. Date: 01/23/2024
--- OUTSIDE RECORDS SUMMARY | 2025-01-25 22:45 | XMS_ITS ---
Author Organization [facility] Address [address] [place] [address] [place] [address] Care Team Providers Care Medical Genetics Director Name Role Phone HinsonHemalathaOwen Unavailable [phone] MEDICATIONS Medication SIG (Take, Route, Frequency, Duration) Notes Start Date End Date Status Losartan Potassium 50 MG 1 tablet Orally Once a day for 90 05/30/2023 Active SOCIAL HISTORY Sex Assigned At : Social History Observation Description Sex Assigned At Male Encounters Encounter Location Date Provider Diagnosis [facility] [address] [facility] [address] [place] [address] 08/01/2024 Owen Hinson Chronic kidney disease, stage [...] * CRISS CALERODOB: [birth year] (74 yo M)Acc No.[id number]:08/01/2024 Progress Notes Patient: CRISS CALERO Provider: MD JOSÉ MIGUEL, F.A.C.P, F.A.S.N. :1950 Age:74 Y Sex:Male Date:08/01/2024 Address:[address] [place] [address] Subjective: * Chief Complaints: * * Medical [...] Treatment: * Billing Information: * Visit Code: 41525 Office Visit, Est Pt., Level 4. * Procedure Codes: * Sign off status: Pending * Provider: MD JOSÉ MIGUEL, F.A.C.P, F.A.S.N. Date: 08/01/2024
--- OUTSIDE RECORDS SUMMARY | 2025-01-25 22:45 | XMS_ITS | Clinical Summary ---
Author Organization [facility] Address [address] [place] [address] Care Team Providers Care Wrapping Machine Operator Name Role Phone Unavailable Primary Care Provider Unavailabl e Source Comments [facility],non-owned Affiliates and Associated Physician Practices is amultiple site organization consisting of ambulatory clinics and hospital sitesin [place], [place], [place] and [place]. This disclosure is being madepursuant to the Care Everywhere program and may not contain all information available regarding this patient. Last updated 18.[facility] Allergies No known active allergies Medications * [...] Date Recorded PHQ2 TOTAL SCORE 0 03/07/2023 [facility] [...] place to sleep or slept in a long-term (including now)? No 03/03/2023 Sex and Gender [...] this topic Medical Devices Implanted Type Area Environmental Compliance Specialist Device Identifier Shelf Expiration Date Model / Serial / Lot Stent Enroute [employer] Flx 7mm .065in 40mm Implanted:Qty : 1 on 03/05/2023 by Betty Crane DO at [facility] Stent - Vascular Right: Arterial [employer] Your [employer] [facility] 04/16/2025 [id number] / / [id number] Description:IMPLANTED RIGHT CAROTID ARTERY Insurance [facility] MANAGED MEDICARE ADV Advance Directives * Full Code (Latest Code Status on File) Date Activated Date Inactivated Comments 03/03/2023 5:15 AM 03/08/2023 8:02 PM
[2025-01-25 22:48] VITALS: BP 163/64; PULSE 72; RESP 18; TEMP 36.6; O2SAT 98
--- NOTE | 2025-01-25 23:02 | ECG_ITS ---
Test Date: 2025-01-25 23:14:08 Measurements Intervals [place] Rate: 64 P: 9 MO: 134 QRS: 62 QRSD: 76 T: 59 QT: 370 QTc: 382 Interpretive Statements SINUS RHYTHM WITH OCCASIONAL SUPRAVENTRICULAR PREMATURE COMPLEXES Compared to ECG 06/27/2024 17:34:48 NO SIGNIFICANT CHANGES Electronically Signed On 01-27-2025 14:11:58 CDT by Hattie Bro M.D.
--- NOTE | 2025-01-25 23:08 | ED_ITS ---
HPI - SOB/Dyspnea General Chief Complaint: Shortness of Breath/Dyspnea Stated Complaint: Shortness of breath, cough, wheezing x 2 days Time Seen by Provider: 01/25/25 23:02 Source: patient Mode of arrival: ambulatory Limitations: no limitations History of Present Illness HPI Narrative: This is a 74 year old male that presents to the ER for shortness of breath. Reports associated productive cough. History of COPD. Denies fevers, chest pain, lower extremity edema. Related Data Home Medications Medication Instructions Recorded Confirmed Last Taken Type albuterol sulfate 90 mcg/actuation 2 puff inhalation Q6H PRN 05/26/24 12/29/24 Unknown History aerosol inhaler (Ventolin HFA) Shortness Of Breath Or Wheezing calcitriol 0.25 mcg capsule 0.25 mcg PO EVERY OTHER DAY 05/26/24 12/29/24 05/24/24 History empagliflozin 10 mg tablet 10 mg PO DAILY 05/26/24 12/29/24 05/25/24 History (Jardiance) ergocalciferol (vitamin D2) 1,250 1,250 mcg PO WEEKLY 05/26/24 12/29/24 05/24/24 History mcg (50,000 unit) capsule metformin 500 mg tablet,extended 500 mg PO BID 05/26/24 12/29/24 05/24/24 History release 24 hr methocarbamol 750 mg tablet 750 mg PO TID PRN muscle spasms 05/26/24 12/29/24 Unknown History metoprolol succinate 50 mg 50 mg PO DAILY 05/26/24 12/29/24 Unknown History tablet,extended release 24 hr pregabalin 75 mg capsule 75 mg PO BID 05/26/24 12/29/24 Unknown History losartan 25 mg tablet 25 mg PO DAILY 12/16/24 12/29/24 Unknown History Allergies Allergy/AdvReac Type Severity Reaction Status Date / Time No Known Allergies Allergy Verified 01/25/25 22:42 Review of Systems 2 Review of Systems: CONSTITUTIONAL: Denies fever CARDIOVASCULAR: Denies chest pain, or edema. RESPIRATORY: Reports cough and dyspnea. All systems reviewed & are unremarkable except as noted in HPI and below PMFSH Past Medical History Medical History Diabetes COPD (chronic obstructive pulmonary disease) Hypertension Hyperlipidemia COPD (chronic obstructive pulmonary disease) Diabetes Hypertension Surgical History Surgical History H/O neck surgery Previous back surgery History of hip surgery No pertinent past surgical history Family History Family History (Updated 12/29/24 @ 13:37 by Laura Franklin CMA) Mother Acute myocardial infarction Congestive heart failure Chronic obstructive pulmonary disease Hypertension Asthma Sibling History of blood clots Colon cancer Grandparent Cerebrovascular accident Social History Social History Smoking packs per day: 1 Smoking cigarettes per day: 20.0 Years smoked: 40 Smoking pack-years: 40.00 Smoking status: Former smoker Tobacco type: cigarettes Alcohol intake: never Substance use: former Substance use type: does not use Do You Feel Safe in your Home?: Yes Lack of Transportation: No Lack of Food: Sometimes True Current Housing: I Have Housing Concerned About Future Housing: No Difficulty Paying Gas/Electric Bills: YES Difficulty Paying for Meds: YES Currently Unemployed: No Education: High School Diploma/GED Difficulty w/ Childcare or Family Care: No Living arrangements: alone Occupation/Education: retired Spiritual care concerns: No Exam 2 Narrative: GENERAL: Elderly, well-nourished, and in no acute distress. HEAD: Normocephalic, atraumatic. EYES: EOMI. ENT: Nares clear, no rhinorrhea or epistaxis. Mucous membranes moist. Oropharynx without tonsillar hypertrophy exudate or other lesions. NECK: Supple. No adenopathy or masses. CHEST: Diffuse expiratory wheezing. No rales or rhonchi HEART: Regular rate and rhythm. No murmur heard. Normal peripheral pulses. EXTREMITIES: Normal range of motion. No edema. SKIN: Warm, dry, no rash. NEURO: No focal deficits. Alert and oriented x3. PSYCH: Normal mood and affect Course Course Emergency Course: Patient continues with diffuse wheezing and shortness of breath after multiple nebulizer treatments, solu-medrol, mag. Will consult hospitalist for admission Consultations Consultation #1: Spoke with hospitalist about patient and workup who accepts admission Date: 01/26/25 Vital Signs Vital signs: Vital Signs Temperature 97.9 F 01/25/25 22:48 Pulse Rate 72 01/25/25 22:48 Respiratory Rate 18 01/25/25 22:48 Blood Pressure 163/64 H 01/25/25 22:48 Pulse Oximetry 98 01/25/25 22:48 Temperature 98.0 F 01/26/25 02:20 Pulse Rate 82 01/26/25 02:20 Respiratory Rate 14 01/26/25 02:20 Blood Pressure 171/99 H 01/26/25 02:20 Pulse Oximetry 96 01/26/25 02:20 Oxygen Delivery Room Air 01/26/25 00:37 MDM - SOB/Dyspnea MDM Narrative Medical decision making narrative: Patient presents to the emergency department for COPD exacerbation. Oxygen saturation is normal on room air. He is afebrile and nontoxic appearing. Cbc without leukocytosis. Metabolic panel with mild elevation in creatinine to 1.34. Influenza, RSV and COVID screens are negative. Patient continues with diffuse wheezing and shortness of breath after multiple nebulizer treatments, solu-medrol, mag. Hospitalist consulted for admission Differential Diagnosis Differential diagnosis: Likely acute exacerbation of chronic obstructive airways disease, congestive heart failure and community acquired pneumonia Lab Data Attestation: I reviewed the patient's lab results. 01/25/25 23:24 01/25/25 23:24 Labs: Lab Results 01/25/25 Range/Units 23:24 WBC 6.1 (4.5-10.0) K/mm3 RBC 4.57 L (4.6-6.20) M/mm3 Hgb 13.5 L (14.0-18.0) g/dL Hct 41.3 L (42.0-52.0) % MCV 90.4 (80-100) fl MCH 29.5 (26-34) pg MCHC 32.7 (32-36) g/dl RDW 15.3 H (11.5-14.5) % Plt Count 244 (150-375) k/mm3 MPV 9.6 (7.4-10.4) fl Immature Gran % (Auto) 0.2 (0-0.5) % Neut % (Auto) 52.3 (45.5-73.1) % Lymph % (Auto) 31.1 (18.3-44.2) % [place] % (Auto) 11.6 H (2.6-8.5) % Eos % (Auto) 4.3 (0-4.4) % Baso % (Auto) 0.5 (0.2-1.2) % Lymph # (Auto) 1.90 (0.9-3.2) K/mm3 [place] # (Auto) 0.7 H (0.1-0.6) K/mm3 Eos # (Auto) 0.3 (0-0.3) K/mm3 Baso # (Auto) 0.0 (0.0-0.1) K/mm3 Abs Immat Gran (auto) 0.01 (0.00-0.031) K/mm3 Absolute Neuts (auto) 3.2 (1.3-6.7) K/mm3 Absolute Nucleated RBC 0.000 (0.0-0.012) K/mm3 Nucleated RBC % 0.0 (0.0-0.2) % PT 13.5 (11.1-14.7) Seconds INR 1.0 APTT 31.6 (22.3-36.8) Seconds Sodium 141 (137-145) mmol/L Potassium 4.1 (3.4-5.0) mmol/L Chloride 107 (98-107) mmol/L Carbon Dioxide 23 (22-30) mmol/L Anion Gap 11 (4-12) mmol/L BUN 28 H D (9-20) mg/dL Creatinine 1.34 H (0.7-1.3) mg/dL Estim Creat Clear Calc Not Reportable Estimated GFR 52 L (59 - ) Glucose 155 H (65-110) mg/dL Calcium 9.9 (8.4-10.2) mg/dL Total Bilirubin 0.9 (0.2-1.3) mg/dL AST 34 (17-59) U/L ALT 23 (6-50) U/L Alkaline Phosphatase 119 (38-126) U/L NT-Pro-B Natriuret Pep 121 H (19.9-100) pg/mL Total Protein 7.0 (6.3-8.2) g/dL Albumin 4.3 (3.5-5.1) g/dL Influenza A (RT-PCR) Negative (Negative) Influenza B (RT-PCR) Negative (Negative) RSV (RT-PCR) Negative (Negative) SARS-CoV-2 RNA (RT-PCR) Negative (Negative) ECG Data EKG #1: ECG completion date: 05/11/25 EKG Interpretation: normal rate, sinus rhythm, no ST changes and normal QT Critical Care Time Critical Care Time Critical Care Time: Yes Total Critical Care Time: 35 Discharge Plan Discharge Clinical Impression: COPD exacerbation Patient Disposition: Still a Patient Condition: Stable Patient Language: Samoan Prescriptions: No Action oxycodone 5 mg tablet 2.5 mg PO Q4H PRN (Reason: pain) Qty: 20 0RF Trelegy Ellipta 100 mcg-62.5 mcg-25 mcg powder for inhalation 100-62.5-25 mcg blister with device 0RF losartan 25 mg tablet 25 mg PO DAILY lansoprazole 30 mg capsule,delayed release(DR/EC) 30 mg PO DAILY Qty: 90 3RF metoprolol succinate 50 mg tablet extended release 24 hr 50 mg PO DAILY methocarbamol 750 mg tablet 750 mg PO TID PRN (Reason: muscle spasms) ergocalciferol (vitamin D2) 1,250 mcg (50,000 unit) capsule 1,250 mcg PO WEEKLY Rx Instructions: sunday administration albuterol sulfate [Ventolin HFA] 90 mcg/actuation HFA aerosol inhaler 2 puff INHALATION Q6H PRN (Reason: Shortness Of Breath Or Wheezing) metformin 500 mg tablet extended release 24 hr 500 mg PO BID calcitriol 0.25 mcg capsule 0.25 mcg PO EVERY OTHER DAY pregabalin 75 mg capsule 75 mg PO BID Patient Comments: pt has not been taking routinely r/t side effects of fatigue Jardiance 10 mg tablet 10 mg PO DAILY insulin glargine [Lantus Solostar U-100 Insulin] 100 unit/mL (3 mL) insulin pen 10 unit subcut QPM Qty: 3 0RF (DME) pen needle, diabetic [BD Ultra-Fine Micro Pen Needle] 32 gauge x 1/4 needle See Rx Instructions .Route Qty: 100 0RF Rx Instructions: As directed oxycodone 5 mg tablet 2.5 mg PO Q4H PRN (Reason: pain) Qty: 20 0RF Follow-up/Referrals: Tiffanie,MD Naila [Primary Care Provider] -
--- OUTSIDE RECORDS SUMMARY | 2025-01-25 23:27 | XMS_ITS | Clinical Summary ---
Author Organization [facility] Facility Address [address] [facility] [place] [address] [address] Care Team Providers Care Pulley Man Name Role Phone Naila Moreno MD Primary Care Provider [phone] Social History Tobacco Use Types Packs/Day Years [...] age to complete this topic Insurance [facility] Medicare Care Teams Pulley Man Relationship Specialty Start Date End Date Naila Moreno MD [address], [address] [place] [address] PCP - General Internal Medicine 11/30/23
--- OUTSIDE RECORDS SUMMARY | 2025-01-25 23:28 | XMS_ITS | CONTINUITY OF CARE DOCUMENT ---
Author Name cruz kitoctavio Address Unknown Organization [facility] Address [address] [place] [address] Phone [phone] Care Team Providers Care Mobile Home Installer Name Role Phone Derrick Amos MD Unavailable CAITLIN RAMÍREZ MD Unavailable CAITLIN RAMÍREZ MD Unavailable [phone] PROBLEMS Condition Status Date Provider Notes Preop [...] In-person encounter Office Visit Steven Shaw NP [facility] - In-person encounter Office Visit Derrick Amos MD [facility] - In-person encounter Office Visit Derrick Amos MD [facility] Cardiology examination - In-person encounter Office Visit Derrick Amos MD [facility] TOBACCO ABUSE-QUIT - In-person encounter Office Visit Derrick Amos MD [facility] - In-person encounter Office Visit Derrick Amos MD [facility] - In-person encounter Office Visit Derrick Amos MD [facility] - In-person encounter Office Visit Derrick Amos MD [facility] CVA - In-person encounter Office Visit Derrick Amos MD [facility] - In-person encounter Office Visit Marshal Milner MD [facility] Preop examHypertensionDyslipidemiaDiabetes mellitusCOPDShortness of breathTOBACCO ABUSE-QUITArrhythmia VITAL SIGNS Date Observation Value Provider Body Mass Index (Ratio) 22.31 kg/m2 Arnie Shaw NP blood pressure, diastolic 101 mm[Hg] emerald Lim blood pressure, systolic 179 mm[Hg] Danna laura Lim oxygen saturation, oximetry 95 % [facility] 71 /[facility] respiratory rate E&M 12 /min [facility] weight E&M 130 [lb_av] [facility] height E&M 64 [in_i] [facility] blood pressure, cuff size regular An [...] morrison Aleman oxygen saturation, oximetry 94 % [facility] pulse rate 87 /min Kmaron [...] Benito Mata weight E&M 137 [lb_av] Benito aMta Body Mass Index (Ratio) 23.51 kg/m2 Portia Amos MD blood pressure, cuff size regular [facility] blood pressure, diastolic 93 mm[Hg] Ja rr blood pressure, systolic 169 mm[Hg] Jar ret pulse rate 63 /min Lucas oxygen saturation, oximetry 96 % respiratory rate E&M 16 /min Lucas weight E&M 137 [lb_av] Lucas height E&M 64 [in_i] Lucas Body Mass Index (Ratio) 23.34 kg/m2 Ricky Albright blood pressure, cuff size regular [facility] blood pressure, diastolic 95 mm[Hg] Ja blood pressure, systolic 176 mm[Hg] [facility] pulse rate 58 /min Lucas respiratory rate [...] pressure, diastolic, right arm 80 m m[Hg] [place] blood pressure, systolic, right arm 130 m m[Hg] blood pressure, diastolic 80 mm[Hg] Ki blood pressure, systolic 130 mm[Hg] Yane cuevas Brody oxygen saturation, oximetry 97 % respiratory rate E&M 16 /min pulse rate 64 /min [facility] E&M 143 [lb_av] height E&M 64 [in_i] blood pressure, resting Yes Kill n Brody ALLERGIES No Known Drug Allergies HISTORY OF MEDICATION USE Medication Status Instructions Dates Provider Indications [facility] mentviridiana chlorthalidone 25 mg tablet active TAKE [...] currently 1/2 Angel Quarles cigarette use yes [place] number of grandchildren Marshal Milner MD [...] Payer name Policy type / Coverage type [place] red green party ID AARP MEDICARE ADVANTAGE ([facility] COMPLETE PPO) Other [id number] ADVANCE DIRECTIVES Name Date DISCUSSED - NO DECISION MADE TREATMENT PLAN Date Name Performer [id number],C,Per pcp Derrick Amos MD [id number],C,S tent to carotid. he should be on astatin but I am not sure. Derrick Amos MD [id number],C,N ot sure what he is on but he will see his PCP for a list of current meds B P today: 155/90 P rior BP: 176/100 (04/12/2023) Derrick Amos MD [id number],C,l ow risk for colonoscopy. BP is not well controlled, will have him come back in a week for BP check Derrick Amos MD [id number],C,n ot well controlled W ill add olmesartan [...] andidate for hip surgery. Denies hx of [place] or chest pain. He reports many years [...]
--- OUTSIDE RECORDS SUMMARY | 2025-01-25 23:28 | XMS_ITS | Clinical Summary ---
Author Organization [facility] Address [address] [place] [address] Care Team Providers Care Deputy Sheriff Generalist/Bailiff Name Role Phone Unavailable Primary Care Provider Unavailabl e Source Comments [facility],non-owned Affiliates and Associated Physician Practices is amultiple site organization consisting of ambulatory clinics and hospital sitesin [place], [place], [place] and [place]. This disclosure is being madepursuant to the Care Everywhere program and may not contain all information available regarding this patient. Last updated 18.[facility] Allergies No known active allergies Medications * [...] Date Recorded PHQ2 TOTAL SCORE 0 03/07/2023 [facility] - [...] this topic Medical Devices Implanted Type Area Quality Controller Device Identifier Shelf Expiration Date Model / Serial / Lot Stent Enroute [employer] Flx 7mm .065in 40mm Implanted:Qty : 1 on 03/05/2023 by Betty Crane DO at [facility] Stent - Vascular Right: Arterial Digital Path [facility] 04/16/2025 [id number] S / / [id number] Description:IMPLANTED RIGHT CAROTID ARTERY Insurance [facility] MANAGED MEDICARE ADV Advance Directives * Full Code (Latest Code Status on File) Date Activated Date Inactivated Comments 03/03/2023 5:15 AM 03/08/2023 8:02 PM
[2025-01-25] MEDS: methylPREDNISolone SOD SUCC 125 MG VIAL IV PUSH (23:34)
[2025-01-25 23:35] LABS: Basophils Percent Auto 0.5 % (0.2-1.2); Eosinophils Absolute Auto 0.3 K/mm3 (0-0.3); Eosinophils Percent Auto 4.3 % (0-4.4); Hematocrit 41.3 % (42.0-52.0); Hemoglobin 13.5 g/dL (14.0-18.0); Immature Granulocyte Absolute 0.01 K/mm3 (0.00-0.031); Immature Granulocyte Percent A 0.2 % (0-0.5); Lymphocytes Percent Auto 31.1 % (18.3-44.2); Mean Corpuscular HGB Conc 32.7 g/dl (32-36); Mean Corpuscular Hemoglobin 29.5 pg (26-34); Mean Corpuscular Volume 90.4 fl (80-100); Mean Platelet Volume 9.6 fl (7.4-10.4); Monocytes Absolute Auto 0.7 K/mm3 (0.1-0.6); Monocytes Percent Auto 11.6 % (2.6-8.5); Neutrophils Absolute Auto 3.2 K/mm3 (1.3-6.7); Neutrophils Percent Auto 52.3 % (45.5-73.1); Platelet Count Result 244 k/mm3 (150-375); Red Blood Count 4.57 M/mm3 (4.6-6.20); Red Cell Distribution Width 15.3 % (11.5-14.5); White Blood Count 6.1 K/mm3 (4.5-10.0)
[2025-01-25] MEDS: MAGNESIUM SULF 1 GM/D5W 100 ML 1 GM/100 ML BAG IVPB (23:35)
[2025-01-25 23:39] VITALS: O2SAT 94
[2025-01-25 23:39] LABS: Alanine Aminotransferase 23 U/L (6-50); Albumin Level 4.3 g/dL (3.5-5.1); Alkaline Phosphatase 119 U/L (38-126); Anion Gap 11 mmol/L (4-12); Aspartate Amino Transferase 34 U/L (17-59); Bilirubin,Total 0.9 mg/dL (0.2-1.3); Blood Urea Nitrogen 28 mg/dL (9-20); Calcium 9.9 mg/dL (8.4-10.2); Carbon Dioxide 23 mmol/L (22-30); Chloride 107 mmol/L (98-107); Estimated Glomerular Filt Rate 52; Glucose 155 mg/dL (65-110); Potassium 4.1 mmol/L (3.4-5.0); Sodium 141 mmol/L (137-145)
[2025-01-25 23:42] LABS: Prothrombin Time 13.5 Seconds (11.1-14.7)
[2025-01-25 23:43] LABS: Partial Thromboplastin Time 31.6 Seconds (22.3-36.8)
[2025-01-25 23:48] LABS: NT Pro B Type Natriuretic Pept 121 pg/mL (19.9-100)
[2025-01-25 23:50] VITALS: PULSE 74; RESP 17
[2025-01-25] MEDS: IPRATROPIUM 0.5 MG/ALBUTEROL SULFATE 2.5 MG AMPUL.NEB 3 ML INHALATION (23:50)
[2025-01-25] MEDS: SODIUM CHLORIDE 0.9% IV 500 ML 999 ML IV CONT (23:59)
[2025-01-26] VITALS (19 sets, daily range): BP systolic 111–171; BP diastolic 50–99; PULSE 62–82; RESP 14–20; TEMP 36–36.9; O2SAT 94–96; BMI 21.9
[2025-01-26 00:06] LABS: Influenza A QL RT-PCR Negative (Negative); Influenza B QL RT-PCR Negative (Negative); RSV RNA, RT-PCR Negative (Negative); SARS-CoV-2 RNA PCR Negative (Negative)
[2025-01-26] MEDS: IPRATROPIUM 0.5 MG/ALBUTEROL SULFATE 2.5 MG AMPUL.NEB 3 ML INHALATION ×4 (01:27→20:25)
--- NOTE | 2025-01-26 02:14 | PC.NURSE ---
Orders for abx are in, this RN spoke with PA and no orders for blood cultures. PA states she does not want cultures.
[2025-01-26] MEDS: AZITHROMYCIN 500 MG/NS 250 ML 500 MG/250 ML BAG 250 MG IVPB ×2 (02:38→22:24)
--- NOTE | 2025-01-26 03:34 | PC.NURSE ---
This patient, Navid Rodríguez, was admitted to [address] [place] [address] Room 305-02. Patient/family oriented to hospital policies and general routines including ID bracelet, bed and alarms, visiting hours, pain management, procedures, bathroom and other care routines, personal items, smoking policy, room service/diet, and visiting hours. Information on how to activate the Rapid Response Team has been discussed. Patient/Family are encouraged to report perceived risks to care and to ask questions if they do not understand what they are told or what they should do.
[2025-01-26 06:00] LABS: Glucose Point of Care 271 mg/dl (65-105)
[2025-01-26 08:15] LABS: Glucose Point of Care 324 mg/dl (65-105)
--- NOTE | 2025-01-26 08:31 | P.HP_ITS ---
H&P: HPI History of Present Illness Date/Time: 01/26/25 08:31 Chief Complaint: sob, cough Narrative: 74-year-old male with a past medical surgical history of coronary artery disease, hypertension, restless leg syndrome, hyperlipidemia, COPD, GERD, Melendez's esophagus, adenomatous colon polyps, lung nodule, osteoarthritis, type 2 diabetes, hepatic steatosis, tonsillectomy and adenoidectomy, anterior cervical diskectomy fusion, left hip replacement, right hip replacement, right carotid artery stent, and cholecystectomy admitted from ED for sob and cough. IN ED: he remained on room air. He is afebrile. NO leukocytosis. Mild elevation in creatinine to 1.34. Influenza, RSV and COVID screens are negative. Patient continues with diffuse wheezing and shortness of breath after multiple nebulizer treatments, solu-medrol, mag. Chest xray- normal chest. Started in ED on azithromycin and ceftriaxone 01/26. 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 Pt is seen and examined. he is very pleasant. Reports that he was coughing for 3 weeks, it had been progressively worse and now sputum is green. He is eating and drinking ok. NO chest pain. no travel outside [facility] and no known sick contact exposure. His diabetic regimen was changed per pcp but he states he was not aware that his jardiance was stopped. He was on lantus and metfromin at home but was not consistent with am bs checks. BUt when he did check- it was reported to be around 132-248. However, later pt states taht he lost his glucometer- so not sure if he was checking it or not. Review of Systems Review of Systems: All systems reviewed & are unremarkable except as noted in HPI and below PMFSH Past Medical History Medical History Diabetes COPD (chronic obstructive pulmonary disease) Hypertension Hyperlipidemia COPD (chronic obstructive pulmonary disease) Diabetes Hypertension Surgical History Surgical History H/O neck surgery Previous back surgery History of hip surgery No pertinent past surgical history Family History Family History Mother Acute myocardial infarction Congestive heart failure Chronic obstructive pulmonary disease Hypertension Asthma Sibling History of blood clots Colon cancer Grandparent Cerebrovascular accident Social History Social History Smoking packs per day: 1 Smoking cigarettes per day: 20.0 Years smoked: 40 Smoking pack-years: 40.00 Smoking status: Former smoker Tobacco type: cigarettes Alcohol intake: never Substance use: former Substance use type: does not use Do You Feel Safe in your Home?: Yes Lack of Transportation: No Lack of Food: Sometimes True Current Housing: I Have Housing Concerned About Future Housing: No Difficulty Paying Gas/Electric Bills: YES Difficulty Paying for Meds: YES Currently Unemployed: No Education: High School Diploma/GED Difficulty w/ Childcare or Family Care: No Living arrangements: alone Occupation/Education: retired Spiritual care concerns: No Meds Home Medications and Allergies Home Medications Medication Instructions Recorded Confirmed Type albuterol sulfate 90 mcg/actuation 2 puff inhalation Q6H PRN 05/26/24 01/26/25 History aerosol inhaler (Ventolin HFA) Shortness Of Breath Or Wheezing calcitriol 0.25 mcg capsule 0.25 mcg PO EVERY OTHER DAY 05/26/24 01/26/25 History empagliflozin 10 mg tablet 10 mg PO DAILY 05/26/24 01/26/25 History (Jardiance) ergocalciferol (vitamin D2) 1,250 1,250 mcg PO WEEKLY 05/26/24 01/26/25 History mcg (50,000 unit) capsule metformin 500 mg tablet,extended 500 mg PO BID 05/26/24 01/26/25 History release 24 hr methocarbamol 750 mg tablet 750 mg PO TID PRN muscle spasms 05/26/24 01/26/25 History pregabalin 75 mg capsule 75 mg PO BID 05/26/24 01/26/25 History insulin glargine 100 unit/mL (3 10 unit (0.1 mL) subcut QPM #3 mL 09/13/24 05/12/25 Rx mL) subcutaneous pen (Lantus Solostar U-100 Insulin) pen needle, diabetic 32 gauge x #100 ea 05/30/24 01/26/25 Rx 1/4 (BD Ultra-Fine Micro Pen Needle) Trelegy Ellipta 100 mcg-62.5 100-62.5-25 mcg Blister With 11/25/24 01/26/25 Sample mcg-25 mcg powder for inhalation Device#2 Samples (sforfyrijfc-uxnqvqzio-tatdhbfm) lansoprazole 30 mg capsule,delayed 30 mg PO DAILY #90 caps 12/16/24 01/26/25 Rx release losartan 25 mg tablet 25 mg PO DAILY 12/16/24 01/26/25 History oxycodone 5 mg tablet 2.5 mg (1/2 x 5 mg) PO Q4H PRN 12/29/24 01/26/25 Rx pain #20 tabs oxycodone 5 mg tablet 2.5 mg (1/2 x 5 mg) PO Q4H PRN 01/20/25 01/26/25 Rx pain #20 tabs atorvastatin 40 mg tablet 40 mg PO DAILY 01/26/25 01/26/25 History meloxicam 7.5 mg tablet 7.5 mg PO DAILY 01/26/25 01/26/25 History omeprazole 40 mg capsule,delayed 40 mg PO DAILY 01/26/25 01/26/25 History release Allergies Allergy/AdvReac Type Severity Reaction Status Date / Time No Known Allergies Allergy Verified 01/26/25 03:57 Vital Signs Vital Signs - 24 hr 01/25/25 22:48 01/25/25 23:39 01/25/25 23:50 Temperature 97.9 F Pulse Rate 72 74 Respiratory Rate 18 17 Blood Pressure 163/64 H Pulse Oximetry 98 94 Oxygen Delivery Room Air Fraction of Inspired Oxygen 01/26/25 00:20 01/26/25 00:37 01/26/25 00:37 Temperature Pulse Rate 72 65 Respiratory Rate 16 14 Blood Pressure 121/50 L Pulse Oximetry 94 95 Oxygen Delivery Room Air Fraction of Inspired Oxygen 01/26/25 01:27 01/26/25 01:27 01/26/25 01:37 Temperature Pulse Rate 72 72 64 Respiratory Rate 16 18 18 Blood Pressure Pulse Oximetry Oxygen Delivery Fraction of Inspired Oxygen 01/26/25 02:20 01/26/25 02:35 01/26/25 03:10 Temperature 98.0 F Pulse Rate 82 79 81 Respiratory Rate 14 16 17 Blood Pressure 171/99 H 118/69 127/62 Pulse Oximetry 96 96 94 Oxygen Delivery Fraction of Inspired Oxygen 01/26/25 03:55 01/26/25 04:17 01/26/25 05:42 Temperature 97.2 F L 96.8 F L Pulse Rate 77 77 78 Respiratory Rate 16 16 17 Blood Pressure 126/69 129/64 Pulse Oximetry 95 95 94 Oxygen Delivery Room Air Fraction of Inspired Oxygen 01/26/25 08:16 01/26/25 08:16 01/26/25 08:26 Temperature Pulse Rate 68 71 Respiratory Rate 20 20 Blood Pressure Pulse Oximetry 95 Oxygen Delivery Room Air Fraction of Inspired Oxygen 21 Exam Const: General: comfortable Neck: Neck: supple Resp: Effort & Inspection: normal respiratory effort Auscultation: wheezes and diminished lung sounds Cardio: Rate: regular rate Rhythm: regular rhythm Skin: General skin exam: normal color Neuro: Motor exam (neuro): 5/5 motor strength present throughout Psych: Affect: normal affect H&P: Results Labs Labs: Short CBC 01/25/25 Range/Units 23:24 WBC 6.1 (4.5-10.0) K/mm3 Hgb 13.5 L (14.0-18.0) g/dL Hct 41.3 L (42.0-52.0) % Plt Count 244 (150-375) k/mm3 BMP 01/25/25 23:24 Sodium 141 Potassium 4.1 Chloride 107 Carbon Dioxide 23 BUN 28 H D Creatinine 1.34 H Glucose 155 H Calcium 9.9 Liver Function 01/25/25 Range/Units 23:24 Total Bilirubin 0.9 (0.2-1.3) mg/dL AST 34 (17-59) U/L ALT 23 (6-50) U/L Alkaline Phosphatase 119 (38-126) U/L Albumin 4.3 (3.5-5.1) g/dL Assessment and Plan Assessment and plan (1) Hypertension: Code(s): I10 - Essential (primary) hypertension Status: Acute Assessment and Plan: continue losartan monitor BP (2) Diabetes: Code(s): E11.9 - Type 2 diabetes mellitus without complications Status: Acute Assessment and Plan: lantus, jardiance, metfromin at home non compliant with BS checking jardiance was stopped? per pcp last hga1c was 7.7 01/09/25 SS, lantus 10 units, accucheks ac/hs, hypoglycemia protocol diabetic diet continue lyrica for neuropathy (3) GERD (gastroesophageal reflux disease): Code(s): K21.9 - Gastro-esophageal reflux disease without esophagitis Status: Acute Assessment and Plan: conitu home pantoprazole (4) Barretts esophagus: Code(s): K22.70 - Melendez's esophagus without dysplasia Status: Acute Assessment and Plan: following with GI (5) Elevated liver enzymes: Code(s): R74.8 - Abnormal levels of other serum enzymes Status: Acute Assessment and Plan: following with GI (6) NAFLD (nonalcoholic fatty liver disease): Code(s): K76.0 - Fatty (change of) liver, not elsewhere classified Status: Acute Assessment and Plan: following with GI (7) COPD exacerbation: Code(s): J44.1 - Chronic obstructive pulmonary disease with (acute) exacerbation Status: Acute Assessment and Plan: methylprednisone IV given in ed now on prednisone 60 mg daily duonebs, albuterol azithromyacin, ceftriaxone started ra- monitor resp status IS, ambulation (8) Lung nodule: Code(s): R91.1 - Solitary pulmonary nodule Status: Acute Assessment and Plan: follow up as outpt Plan continue statin scheduled for lt rotator cuff surgery on february 12 pt is full code Chronic conditions Diabetes COPD (chronic obstructive pulmonary disease) Hypertension Hyperlipidemia COPD (chronic obstructive pulmonary disease) Diabetes Hypertension Quality VTE Prophylaxis VTE prophylaxis: mechanical ordered Hospitalist [facility] Advance Care Plan I have confirmed that the patient's Advanced Care Plan is present, code status is documented, or surrogate decision maker is listed in patient medical record.: Yes Medication Reconciliation I have utilized all available resources to obtain, update and review the patients current medications (includes all prescriptions, OTC, herbals, cannabis, and nutritional supplements).: Yes
[2025-01-26] MEDS: predniSONE 20 MG TABLET 60 MG PO (09:56)
[2025-01-26] MEDS: ATORVASTATIN 40 MG TABLET PO (09:56)
[2025-01-26] MEDS: PREGABALIN (*CRX) 75 MG CAPSULE PO ×2 (09:56→18:01)
[2025-01-26] MEDS: calcitrioL 0.25 MCG CAPSULE PO (09:56)
[2025-01-26] MEDS: PANTOPRAZOLE 40 MG TABLET PO ×2 (09:56→21:22)
[2025-01-26] MEDS: LOSARTAN POTASSIUM 25 MG TABLET PO (09:56)
[2025-01-26] MEDS: INSULIN ASPART (*BKC) 100 UNITS/ML SUB-Q ×4 (09:57→21:21)
[2025-01-26] MEDS: oxyCODONE HCL (*CRX) 2.5 MG TAB IR PO (10:02)
[2025-01-26 11:30] LABS: Glucose Point of Care 289 mg/dl (65-105)
--- NOTE | 2025-01-26 13:53 | P.CDI_ITS ---
CDI Query Clarification Request BMI: 21.9 Nutritional Diagnostic Statement: Please refer to the comprehensive nutrition assessment for further information. If you agree with diagnosis of Moderate protein calorie malnutrition related to increased energy needs and chronic disease (COPD) as evidenced by a significant weight loss of -8% x 3 months, and NFPE findings for moderate subcutaneous fat loss (cheeks) and muscle wasting (temples, clavicle). Please specify severity if known: * Mild * Moderate * Severe * Other/Unknown <Beth Cortez RN - Last Filed: 01/26/25 13:54> Clarified Diagnosis Clarified Diagnosis: moderate <Dorinda Graf APRN - Last Filed: 01/26/25 14:11>
[2025-01-26 17:31] LABS: Glucose Point of Care 246 mg/dl (65-105)
[2025-01-26 21:18] LABS: Glucose Point of Care 322 mg/dl (65-105)
[2025-01-26] MEDS: INSULIN GLARGINE (*BKC) 100 UNITS/ML 10 UNITS SUB-Q (21:22)
[2025-01-26] MEDS: guaiFENesin 12 HR 600 MG TABCR 1200 MG PO (21:22)
[2025-01-27] VITALS (11 sets, daily range): BP systolic 116–120; BP diastolic 60–73; PULSE 60–84; RESP 16–20; TEMP 36.2–37.1; O2SAT 92–100
[2025-01-27] MEDS: IPRATROPIUM 0.5 MG/ALBUTEROL SULFATE 2.5 MG AMPUL.NEB 3 ML INHALATION ×4 (01:31→21:46)
[2025-01-27 08:19] LABS: Glucose Point of Care 149 mg/dl (65-105)
[2025-01-27] MEDS: predniSONE 20 MG TABLET 60 MG PO (08:35)
[2025-01-27] MEDS: PREGABALIN (*CRX) 75 MG CAPSULE PO ×2 (08:35→17:14)
[2025-01-27] MEDS: ATORVASTATIN 40 MG TABLET PO (08:36)
[2025-01-27] MEDS: guaiFENesin 12 HR 600 MG TABCR 1200 MG PO ×2 (08:36→21:05)
[2025-01-27] MEDS: PANTOPRAZOLE 40 MG TABLET PO ×2 (08:36→21:05)
[2025-01-27] MEDS: LOSARTAN POTASSIUM 25 MG TABLET PO (08:36)
[2025-01-27 11:38] LABS: Glucose Point of Care 354 mg/dl (65-105)
[2025-01-27] MEDS: INSULIN ASPART (*BKC) 100 UNITS/ML SUB-Q ×2 (14:07→17:14)
--- NOTE | 2025-01-27 14:58 | PM.IMPN ---
Progress Note: A&P Assessment and Plan (1) Hypertension: Code(s): I10 - Essential (primary) hypertension Status: Acute Assessment and Plan: continue losartan monitor BP (2) Diabetes: Code(s): E11.9 - Type 2 diabetes mellitus without complications Status: Acute Assessment and Plan: lantus, jardiance, metfromin at home non compliant with BS checking jardiance was stopped? per pcp last hga1c was 7.7 01/09/25 SS, lantus 10 units, accucheks ac/hs, hypoglycemia protocol diabetic diet continue lyrica for neuropathy (3) GERD (gastroesophageal reflux disease): Code(s): K21.9 - Gastro-esophageal reflux disease without esophagitis Status: Acute Assessment and Plan: conitu home pantoprazole (4) Barretts esophagus: Code(s): K22.70 - Melendez's esophagus without dysplasia Status: Acute Assessment and Plan: following with GI (5) Elevated liver enzymes: Code(s): R74.8 - Abnormal levels of other serum enzymes Status: Acute Assessment and Plan: following with GI (6) NAFLD (nonalcoholic fatty liver disease): Code(s): K76.0 - Fatty (change of) liver, not elsewhere classified Status: Acute Assessment and Plan: following with GI (7) COPD exacerbation: Code(s): J44.1 - Chronic obstructive pulmonary disease with (acute) exacerbation Status: Acute Assessment and Plan: methylprednisone IV given in ed now on prednisone 60 mg daily duonebs, albuterol azithromyacin, ceftriaxone started ra- monitor resp status IS, ambulation 01/27-will order chest xray to re eval as feeling a bit more sob with exertion no chest pain, vs stable (8) Lung nodule: Code(s): R91.1 - Solitary pulmonary nodule Status: Acute Assessment and Plan: follow up as outpt Plan continue statin scheduled for lt rotator cuff surgery on february 12 pt is full code Chronic conditions Diabetes COPD (chronic obstructive pulmonary disease) Hypertension Hyperlipidemia COPD (chronic obstructive pulmonary disease) Diabetes Hypertension Time Spent With Patient Time with patient: 25 - 35 minutes Subjective Date/time seen: 01/27/25 14:58 Interval history: 74-year-old male with a past medical surgical history of coronary artery disease, hypertension, restless leg syndrome, hyperlipidemia, COPD, GERD, Melendez's esophagus, adenomatous colon polyps, lung nodule, osteoarthritis, type 2 diabetes, hepatic steatosis, tonsillectomy and adenoidectomy, anterior cervical diskectomy fusion, left hip replacement, right hip replacement, right carotid artery stent, and cholecystectomy admitted from ED for sob and cough. He is feeling somewhat more sob, cough. able to eat and drink ok, trying to stay active. able to give us sputum sample yesterday Review of Systems Review of Systems: All systems reviewed & are unremarkable except as noted in HPI and below Exam Const: General: comfortable Neck: Neck: supple Resp: Effort & Inspection: normal respiratory effort Auscultation: wheezes and diminished lung sounds Cardio: Rate: regular rate Rhythm: regular rhythm Skin: General skin exam: normal color Neuro: Motor exam (neuro): 5/5 motor strength present throughout Psych: Affect: normal affect Objective Data Vital Signs Vital Signs: Vital Signs - 24 hr 01/26/25 20:00 01/26/25 20:02 01/26/25 20:26 Temperature 98.4 F Pulse Rate 82 73 Respiratory Rate 16 20 Blood Pressure 111/70 Pulse Oximetry 95 Oxygen Delivery Room Air Fraction of Inspired Oxygen 01/26/25 20:28 01/26/25 22:15 01/27/25 01:31 Temperature 98.4 F Pulse Rate 82 76 Respiratory Rate 16 20 Blood Pressure 111/70 Pulse Oximetry 95 95 Oxygen Delivery Room Air Fraction of Inspired Oxygen 21 01/27/25 01:45 01/27/25 05:00 01/27/25 08:00 Temperature 98.7 F Pulse Rate 80 81 Respiratory Rate 20 16 Blood Pressure 116/60 Pulse Oximetry 100 Oxygen Delivery Room Air Fraction of Inspired Oxygen 01/27/25 08:13 01/27/25 08:13 01/27/25 08:23 Temperature Pulse Rate 60 60 Respiratory Rate 20 20 Blood Pressure Pulse Oximetry 97 Oxygen Delivery Room Air Fraction of Inspired Oxygen 01/27/25 14:00 01/27/25 14:07 01/27/25 14:21 Temperature 97.2 F L Pulse Rate 82 82 80 Respiratory Rate 20 18 18 Blood Pressure 120/61 Pulse Oximetry 100 Oxygen Delivery Fraction of Inspired Oxygen Intake/Output Intake/Output: Intake & Output 05/10/25 01/25/25 01/26/25 01/27/25 23:59 23:59 23:59 23:59 Intake Total 2620 956 Balance 2620 956 Meds/Results Medications: Active Medications Generic Name Dose Route Start Last Admin Trade Name Freq PRN Reason Stop Dose Admin Albuterol 2 puff 01/26/25 08:26 Albuterol Sulfate (*Sp) Aerosol 1 Puff INHALATION Q6H PRN Shortness Of Breath Or Wheezing Albuterol/Ipratropium 3 ml 01/26/25 08:00 01/27/25 14:06 Ipratropium 0.5 Mg/Albuterol Sulfate 2.5 Mg Ampul.Neb 3 Ml INHALATION 3 ml Q6HRT FCO Administration Atorvastatin Calcium 40 mg 01/26/25 09:00 01/27/25 08:36 Atorvastatin 40 Mg Tablet PO 40 mg DAILY FCO Administration Calcitriol 0.25 mcg 01/26/25 09:00 01/26/25 09:56 Calcitriol 0.25 Mcg Capsule PO 0.25 mcg Q48HR FCO Administration Dextrose 12.5 gm 01/26/25 08:24 Dextrose 50% 25 Gm/50 Ml Syringe IV PUSH PRN PRN Hypoglycemia Protocol Glucagon 1 mg 01/26/25 08:24 Glucagon For Inj 1 Mg Vial IM PRN PRN Hypoglycemia Protocol Glucose 15 gm 01/26/25 08:24 Glucose Oral Gel 15 Gm Of Glucse In 37.5 Gm Tube PO PRN PRN Hypoglycemia Protocol Guaifenesin 1,200 mg 01/26/25 21:00 01/27/25 08:36 Guaifenesin 12 Hr 600 Mg Tabcr PO 1,200 mg Q12HR FCO Administration Ceftriaxone Sodium 1 gm in 50 mls @ 100 mls/hr 01/26/25 22:00 01/26/25 21:27 Rocephin 1 Gm/Ns 50 Ml IVPB 100 mls/hr Q24H FCO Administration Azithromycin 500 mg in 250 mls @ 250 mls/hr 01/26/25 23:00 01/26/25 22:24 Zithromax IVPB 250 mls/hr Q24H FCO Administration Dextrose 1,000 mls @ 100 mls/hr 01/26/25 08:24 Dextrose 5% 1,000 Ml IVPB PRN PRN Hypoglycemia Protocol Insulin Aspart 3 - 6 units 01/26/25 08:00 01/27/25 14:07 Insulin Aspart (*Bkc) 100 Units/Ml SUB-Q 6 units TIDWM FCO Administration Protocol Insulin Aspart 1 - 3 units 01/26/25 21:00 01/26/25 21:21 Insulin Aspart (*Bkc) 100 Units/Ml SUB-Q 2 units HS FCO Administration Protocol Insulin Glargine 10 units 01/26/25 21:00 01/26/25 21:22 Insulin Glargine (*Bkc) 100 Units/Ml SUB-Q 10 units HS FCO Administration Losartan Potassium 25 mg 01/26/25 09:00 01/27/25 08:36 Losartan Potassium 25 Mg Tablet PO 25 mg DAILY FCO Administration Methocarbamol 750 mg 01/26/25 08:23 Methocarbamol 750 Mg Tablet PO TID PRN muscle spasms Oxycodone HCl 2.5 mg 01/26/25 08:23 01/26/25 10:02 Oxycodone Hcl (*Crx) 2.5 Mg Tab Ir PO 2.5 mg Q4H PRN Administration pain Pantoprazole Sodium 40 mg 01/26/25 09:00 01/27/25 08:36 Pantoprazole 40 Mg Tablet PO 40 mg Q12HR FCO Administration Prednisone 60 mg 01/26/25 08:00 01/27/25 08:35 Prednisone 20 Mg Tablet PO 60 mg DAILY@0800 FCO Administration Pregabalin 75 mg 01/26/25 09:00 01/27/25 08:35 Pregabalin (*Crx) 75 Mg Capsule PO 75 mg BID FOC Administration Labs Labs: Laboratory Results - last 24 hr 01/26/25 01/26/25 01/27/25 16:43 21:15 08:00 POC Capillary Glucose 246 H 322 H 149 H 01/27/25 11:29 POC Capillary Glucose 354 H Quality VTE Prophylaxis VTE prophylaxis: mechanical ordered
[2025-01-27 16:32] LABS: Glucose Point of Care 427 mg/dl (65-105)
[2025-01-27 20:35] LABS: Glucose Point of Care 417 mg/dl (65-105)
[2025-01-27] MEDS: oxyCODONE HCL (*CRX) 2.5 MG TAB IR PO (21:04)
[2025-01-27] MEDS: methocarbamoL 750 MG TABLET PO (21:05)
[2025-01-27] MEDS: INSULIN ASPART (*BKC) 100 UNITS/ML 6 UNITS SUB-Q (21:07)
[2025-01-27] MEDS: INSULIN GLARGINE (*BKC) 100 UNITS/ML 10 UNITS SUB-Q (21:08)
[2025-01-27] MEDS: AZITHROMYCIN 500 MG/NS 250 ML 500 MG/250 ML BAG 250 MG IVPB (22:30)
[2025-01-27 22:57] LABS: Glucose Point of Care 263 mg/dl (65-105)
[2025-01-28] VITALS (12 sets, daily range): BP systolic 120–138; BP diastolic 60–91; PULSE 60–105; RESP 18–20; TEMP 36.3–36.8; O2SAT 94–99
[2025-01-28 01:32] LABS: Glucose Point of Care 179 mg/dl (65-105)
[2025-01-28 06:10] LABS: Hematocrit 39.2 % (42.0-52.0); Hemoglobin 12.3 g/dL (14.0-18.0); Mean Corpuscular HGB Conc 31.4 g/dl (32-36); Mean Corpuscular Hemoglobin 29.1 pg (26-34); Mean Corpuscular Volume 92.9 fl (80-100); Mean Platelet Volume 10.2 fl (7.4-10.4); Platelet Count Result 213 k/mm3 (150-375); Red Blood Count 4.22 M/mm3 (4.6-6.20); Red Cell Distribution Width 15.5 % (11.5-14.5); White Blood Count 6.3 K/mm3 (4.5-10.0)
[2025-01-28] MEDS: IPRATROPIUM 0.5 MG/ALBUTEROL SULFATE 2.5 MG AMPUL.NEB 3 ML INHALATION ×3 (07:40→20:04)
[2025-01-28] MEDS: guaiFENesin 12 HR 600 MG TABCR 1200 MG PO ×2 (08:13→20:59)
[2025-01-28] MEDS: ATORVASTATIN 40 MG TABLET PO (08:13)
[2025-01-28] MEDS: predniSONE 20 MG TABLET 60 MG PO (08:13)
[2025-01-28] MEDS: PANTOPRAZOLE 40 MG TABLET PO ×2 (08:13→20:59)
[2025-01-28] MEDS: PREGABALIN (*CRX) 75 MG CAPSULE PO ×2 (08:13→16:23)
[2025-01-28] MEDS: calcitrioL 0.25 MCG CAPSULE PO (08:13)
[2025-01-28] MEDS: LOSARTAN POTASSIUM 25 MG TABLET PO (08:14)
[2025-01-28 08:16] LABS: Glucose Point of Care 134 mg/dl (65-105)
[2025-01-28] MEDS: oxyCODONE HCL (*CRX) 2.5 MG TAB IR PO ×2 (08:36→20:59)
[2025-01-28 12:14] LABS: Glucose Point of Care 358 mg/dl (65-105)
[2025-01-28] MEDS: INSULIN ASPART (*BKC) 100 UNITS/ML SUB-Q ×3 (12:55→21:00)
--- NOTE | 2025-01-28 16:04 | PM.IMPN ---
Progress Note: A&P Assessment and Plan (1) Hypertension: Code(s): I10 - Essential (primary) hypertension Status: Acute Assessment and Plan: continue losartan monitor BP (2) Diabetes: Code(s): E11.9 - Type 2 diabetes mellitus without complications Status: Acute Assessment and Plan: jardiance, metfromin at home. No longer taking insulin but has taken 10 units in the past non compliant with BS checking jardiance was stopped per pcp last hga1c was 7.7 01/09/25 SS, accucheks ac/hs, hypoglycemia protocol diabetic diet continue lyrica for neuropathy --Stop Lantus 10 hs, start NPH 20 units daily tomorrow for postprandial hyperglycemia with steroids (3) GERD (gastroesophageal reflux disease): Code(s): K21.9 - Gastro-esophageal reflux disease without esophagitis Status: Acute Assessment and Plan: conitu home pantoprazole (4) Barretts esophagus: Code(s): K22.70 - Mleendez's esophagus without dysplasia Status: Acute Assessment and Plan: following with GI (5) Elevated liver enzymes: Code(s): R74.8 - Abnormal levels of other serum enzymes Status: Acute Assessment and Plan: following with GI (6) NAFLD (nonalcoholic fatty liver disease): Code(s): K76.0 - Fatty (change of) liver, not elsewhere classified Status: Acute Assessment and Plan: following with GI (7) COPD exacerbation: Code(s): J44.1 - Chronic obstructive pulmonary disease with (acute) exacerbation Status: Acute Assessment and Plan: methylprednisone IV given in ed now on prednisone 60 mg daily, decrease to 40mg tomorrow duonebs scheduled azithromyacin, ceftriaxone started ra- monitor resp status IS, ambulation 01/27 chest xray (re eval as feeling a bit more sob with exertion) No acute cardiopulmonary process . (8) Lung nodule: Code(s): R91.1 - Solitary pulmonary nodule Status: Acute Assessment and Plan: follow up as outpt Plan continue statin scheduled for lt rotator cuff surgery on february 12 pt is full code Chronic conditions Diabetes COPD (chronic obstructive pulmonary disease) Hypertension Hyperlipidemia COPD (chronic obstructive pulmonary disease) Diabetes Hypertension Subjective Date/time seen: 01/28/25 16:04 Interval history: Overall improving. Still wheezing and has a productive cough with yellow sputum Blood sugars elevated on steroids, up to 358 before lunch Walking O2 prior to discharge 74-year-old male with a past medical surgical history of coronary artery disease, hypertension, restless leg syndrome, hyperlipidemia, COPD, GERD, Melendez's esophagus, adenomatous colon polyps, lung nodule, osteoarthritis, type 2 diabetes, hepatic steatosis, tonsillectomy and adenoidectomy, anterior cervical diskectomy fusion, left hip replacement, right hip replacement, right carotid artery stent, and cholecystectomy admitted from ED for sob and cough. Blood sugars elevated with sterhoids. Review of Systems Review of Systems: All systems reviewed & are unremarkable except as noted in HPI and below Exam Narrative: General - Awake and alert. No acute distress Eyes - PERRLA, EOM intact ENT - No thrush, No erythema Neck - No noticeable or palpable swelling Lymph Nodes - No lymphadenopathy Cardiovascular - RRR no m/r/g, no JVD Lungs: Clear to auscultation, Mild end expiratory wheezing, limited air movement, barrel chest, rare crackles Skin - Skin warm and dry, no wounds or rashes Abdomen - Normal bowel sounds, abdomen soft and nontender Extremities - No edema, cyanosis or clubbing Musculoskeletal - 5/5 strength, normal range of motion, no swollen or erythematous joints. Neurological – Alert and oriented x 3, CN 2-12 grossly intact. Psych: Normal mood and affect Objective Data Vital Signs Vital Signs: Vital Signs - 24 hr 01/27/25 20:00 01/27/25 21:13 01/27/25 21:47 Temperature 98.0 F Pulse Rate 84 Respiratory Rate 16 Blood Pressure 119/73 Pulse Oximetry 98 92 Oxygen Delivery Room Air Room Air Fraction of Inspired Oxygen 01/27/25 21:47 01/27/25 21:57 01/28/25 02:45 Temperature Pulse Rate 71 73 72 Respiratory Rate 20 20 20 Blood Pressure Pulse Oximetry Oxygen Delivery Fraction of Inspired Oxygen 01/28/25 02:57 01/28/25 05:35 01/28/25 07:40 Temperature 97.5 F L Pulse Rate 73 78 Respiratory Rate 20 18 Blood Pressure 120/60 Pulse Oximetry 99 96 Oxygen Delivery Room Air Fraction of Inspired Oxygen 01/28/25 07:40 01/28/25 07:47 01/28/25 08:00 Temperature Pulse Rate 62 60 Respiratory Rate 20 20 Blood Pressure Pulse Oximetry Oxygen Delivery Room Air Fraction of Inspired Oxygen 21 01/28/25 14:56 01/28/25 15:07 Temperature Pulse Rate 62 60 Respiratory Rate 20 20 Blood Pressure Pulse Oximetry Oxygen Delivery Fraction of Inspired Oxygen Intake/Output Intake/Output: Intake & Output 01/25/25 01/26/25 01/27/25 01/28/25 23:59 23:59 23:59 23:59 Intake Total 2920 1496 690 Balance 2920 1496 690 Meds/Results Medications: Active Medications Generic Name Dose Route Start Last Admin Trade Name Freq PRN Reason Stop Dose Admin Albuterol 2 puff 01/26/25 08:26 Albuterol Sulfate (*Sp) Aerosol 1 Puff INHALATION Q6H PRN Shortness Of Breath Or Wheezing Albuterol/Ipratropium 3 ml 01/26/25 08:00 01/28/25 14:56 Ipratropium 0.5 Mg/Albuterol Sulfate 2.5 Mg Ampul.Neb 3 Ml INHALATION 3 ml Q6HRT FCO Administration Atorvastatin Calcium 40 mg 01/26/25 09:00 01/28/25 08:13 Atorvastatin 40 Mg Tablet PO 40 mg DAILY FCO Administration Calcitriol 0.25 mcg 01/26/25 09:00 01/28/25 08:13 Calcitriol 0.25 Mcg Capsule PO 0.25 mcg Q48HR FCO Administration Dextrose 12.5 gm 01/26/25 08:24 Dextrose 50% 25 Gm/50 Ml Syringe IV PUSH PRN PRN Hypoglycemia Protocol Glucagon 1 mg 01/26/25 08:24 Glucagon For Inj 1 Mg Vial IM PRN PRN Hypoglycemia Protocol Glucose 15 gm 01/26/25 08:24 Glucose Oral Gel 15 Gm Of Glucse In 37.5 Gm Tube PO PRN PRN Hypoglycemia Protocol Guaifenesin 1,200 mg 01/26/25 21:00 01/28/25 08:13 Guaifenesin 12 Hr 600 Mg Tabcr PO 1,200 mg Q12HR FCO Administration Ceftriaxone Sodium 1 gm in 50 mls @ 100 mls/hr 01/26/25 22:00 01/27/25 21:40 Rocephin 1 Gm/Ns 50 Ml IVPB Infused Q24H FCO Infusion Azithromycin 500 mg in 250 mls @ 250 mls/hr 01/26/25 23:00 01/27/25 23:30 Zithromax IVPB Infused Q24H FCO Infusion Dextrose 1,000 mls @ 100 mls/hr 01/26/25 08:24 Dextrose 5% 1,000 Ml IVPB PRN PRN Hypoglycemia Protocol Insulin Aspart 3 - 6 units 01/26/25 08:00 01/28/25 12:55 Insulin Aspart (*Bkc) 100 Units/Ml SUB-Q 6 units TIDWM FCO Administration Protocol Insulin Aspart 1 - 3 units 01/26/25 21:00 01/27/25 21:09 Insulin Aspart (*Bkc) 100 Units/Ml SUB-Q Not Given HS FCO Protocol Insulin Glargine 10 units 01/26/25 21:00 01/27/25 21:08 Insulin Glargine (*Bkc) 100 Units/Ml SUB-Q 10 units HS FCO Administration Losartan Potassium 25 mg 01/26/25 09:00 01/28/25 08:14 Losartan Potassium 25 Mg Tablet PO 25 mg DAILY FCO Administration Methocarbamol 750 mg 01/26/25 08:23 01/27/25 21:05 Methocarbamol 750 Mg Tablet PO 750 mg TID PRN Administration muscle spasms Oxycodone HCl 2.5 mg 01/26/25 08:23 01/28/25 08:36 Oxycodone Hcl (*Crx) 2.5 Mg Tab Ir PO 2.5 mg Q4H PRN Administration pain Pantoprazole Sodium 40 mg 01/26/25 09:00 01/28/25 08:13 Pantoprazole 40 Mg Tablet PO 40 mg Q12HR FCO Administration Prednisone 60 mg 01/26/25 08:00 01/28/25 08:13 Prednisone 20 Mg Tablet PO 60 mg DAILY@0800 FCO Administration Pregabalin 75 mg 01/26/25 09:00 01/28/25 08:13 Pregabalin (*Crx) 75 Mg Capsule PO 75 mg BID FCO Administration Radiology Results: ITS Impressions Chest X-Ray 01/27/25 16:08 IMPRESSION: No acute cardiopulmonary process. Labs Labs: Laboratory Results - last 24 hr 01/27/25 01/27/25 01/27/25 16:22 19:51 22:55 WBC RBC Hgb Hct MCV MCH MCHC RDW Plt Count MPV POC Capillary Glucose 427 H 417 H 263 H 01/28/25 01/28/25 01/28/25 01:28 05:04 08:06 WBC 6.3 RBC 4.22 L Hgb 12.3 L Hct 39.2 L MCV 92.9 MCH 29.1 MCHC 31.4 L RDW 15.5 H Plt Count 213 MPV 10.2 POC Capillary Glucose 179 H 134 H 01/28/25 12:03 WBC RBC Hgb Hct MCV MCH MCHC RDW Plt Count MPV POC Capillary Glucose 358 H Quality VTE Prophylaxis VTE prophylaxis: mechanical ordered and pharmacologic ordered Hospitalist MIPS Advance Care Plan I have confirmed that the patient's Advanced Care Plan is present, code status is documented, or surrogate decision maker is listed in patient medical record.: Yes Medication Reconciliation I have utilized all available resources to obtain, update and review the patients current medications (includes all prescriptions, OTC, herbals, cannabis, and nutritional supplements).: Yes
[2025-01-28 17:00] LABS: Glucose Point of Care 340 mg/dl (65-105)
[2025-01-28 20:34] LABS: Glucose Point of Care 319 mg/dl (65-105)
[2025-01-28] MEDS: AZITHROMYCIN 500 MG/NS 250 ML 500 MG/250 ML BAG 125 MG IVPB (22:56)
[2025-01-29] VITALS (10 sets, daily range): BP systolic 130–171; BP diastolic 71–88; PULSE 65–101; RESP 18–20; TEMP 36.2–36.5; O2SAT 94–98
[2025-01-29] MEDS: methocarbamoL 750 MG TABLET PO (00:26)
[2025-01-29] MEDS: IPRATROPIUM 0.5 MG/ALBUTEROL SULFATE 2.5 MG AMPUL.NEB 3 ML INHALATION ×2 (02:20→08:12)
[2025-01-29 06:29] LABS: Hematocrit 38.7 % (42.0-52.0); Hemoglobin 12.3 g/dL (14.0-18.0); Mean Corpuscular HGB Conc 31.8 g/dl (32-36); Mean Corpuscular Hemoglobin 29.2 pg (26-34); Mean Corpuscular Volume 91.9 fl (80-100); Mean Platelet Volume 9.7 fl (7.4-10.4); Platelet Count Result 217 k/mm3 (150-375); Red Blood Count 4.21 M/mm3 (4.6-6.20); Red Cell Distribution Width 15.6 % (11.5-14.5); White Blood Count 7.4 K/mm3 (4.5-10.0)
[2025-01-29] MEDS: oxyCODONE HCL (*CRX) 2.5 MG TAB IR PO (06:29)
[2025-01-29 07:41] LABS: Glucose Point of Care 126 mg/dl (65-105)
[2025-01-29] MEDS: PREGABALIN (*CRX) 75 MG CAPSULE PO (09:05)
[2025-01-29] MEDS: guaiFENesin 12 HR 600 MG TABCR 1200 MG PO (09:05)
[2025-01-29] MEDS: ATORVASTATIN 40 MG TABLET PO (09:05)
[2025-01-29] MEDS: LOSARTAN POTASSIUM 25 MG TABLET PO (09:05)
[2025-01-29] MEDS: predniSONE 20 MG TABLET 40 MG PO (09:05)
[2025-01-29] MEDS: PANTOPRAZOLE 40 MG TABLET PO (09:05)
[2025-01-29] MEDS: ENOXAPARIN 40 MG/0.4 ML SYRINGE SUB-Q (09:06)
[2025-01-29] MEDS: INSULIN HUMAN NPH (*BKC) 100 UNITS/ML 20 UNITS SUB-Q (09:23)
[2025-01-29 11:35] LABS: Glucose Point of Care 285 mg/dl (65-105)
[2025-01-29] MEDS: INSULIN ASPART (*BKC) 100 UNITS/ML SUB-Q (11:47)
--- NOTE | 2025-01-29 11:54 | P.DS_ITS ---
DS: Admitting Diagnosis Discharge Date 01/29/2025 Admitting Diagnosis COPD with acute exacerbation DS: Summary Hospital Course Reason for hospitalization: Copied from [facility] 01/26: 74-year-old male with a past medical surgical history of coronary artery disease, hypertension, restless leg syndrome, hyperlipidemia, COPD, GERD, Melendez's esophagus, adenomatous colon polyps, lung nodule, osteoarthritis, type 2 diabetes, hepatic steatosis, tonsillectomy and adenoidectomy, anterior cervical diskectomy fusion, left hip replacement, right hip replacement, right carotid artery stent, and cholecystectomy admitted from ED for sob and cough. IN ED: he remained on room air. He is afebrile. NO leukocytosis. Mild elevation in creatinine to 1.34. Influenza, RSV and COVID screens are negative. Patient continues with diffuse wheezing and shortness of breath after multiple nebulizer treatments, solu-medrol, mag. Chest xray- normal chest. Started in ED on azithromycin and ceftriaxone 01/26. 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 Pt is seen and examined. he is very pleasant. Reports that he was coughing for 3 weeks, it had been progressively worse and now sputum is green. He is eating and drinking ok. NO chest pain. no travel outside [facility] and no known sick contact exposure. His diabetic regimen was changed per pcp but he states he was not aware that his jardiance was stopped. He was on lantus and metfromin at home but was not consi stent with am bs checks. BUt when he did check- it was reported to be around 132-248. However, later pt states taht he lost his glucometer- so not sure if he was checking it or not. Hospital Course: 74-year-old male with a past medical surgical history of coronary artery disease, hypertension, restless leg syndrome, hyperlipidemia, COPD, GERD, Bar rett's esophagus, adenomatous colon polyps, lung nodule, osteoarthritis, type 2 diabetes, hepatic steatosis, tonsillectomy and adenoidectomy, anterior cervical diskectomy fusion, left hip replacement, right hip replacement, right carotid artery stent, and cholecystectomy admitted from ED for sob and cough. Blood sugars elevated with steroids. Hypertension: continue losartan --monitor BP Diabetes: Type 2 diabetes mellitus without complications jardiance, metfromin at home. No longer taking insulin but has taken 10 units in the past non compliant with BS checking jardiance was stopped per pcp last hga1c was 7.7 01/09/25 SS, accucheks ac/hs, hypoglycemia protocol diabetic diet continue lyrica for neuropathy -- started NPH 20 units daily for postprandial hyperglycemia with steroids GERD (gastroesophageal reflux disease): conitue home pantoprazole Barretts esophagus: following with GI Elevated liver enzymes: following with GI NAFLD (nonalcoholic fatty liver disease): following with GI COPD exacerbation: methylprednisone IV given in ed now on prednisone 60 mg daily, decreased to 40mg tomorrow duonebs scheduled azithromyacin, ceftriaxone started ra- monitor resp status IS, ambulation --Increased Trelegy from 100 to 200 daily 01/27 chest xray (re eval as feeling a bit more sob with exertion) No acute cardiopulmonary process . (8) Lung nodule: R91.1 - Solitary pulmonary nodule follow up as outpt Status at Discharge Cognitive/behavioral status at discharge: A&OX4 Time Spent with Patient Time attestation: Total time spent providing and/or coordinating discharge services:52 minutes Exam Narrative: General - Awake and alert. No acute distress Eyes - PERRLA, EOM intact ENT - No thrush, No erythema Neck - No noticeable or palpable swelling Lymph Nodes - No lymphadenopathy Cardiovascular - RRR no m/r/g, no JVD Lungs: Clear to auscultation, Mild end expiratory wheezing, limited air movement, barrel chest, rare crackles Skin - Skin warm and dry, no wounds or rashes Abdomen - Normal bowel sounds, abdomen soft and nontender Extremities - No edema, cyanosis or clubbing Musculoskeletal - 5/5 strength, normal range of motion, no swollen or erythematous joints. Neurological – Alert and oriented x 3, CN 2-12 grossly intact. Psych: Normal mood and affect DS: Data Data Completed and Pending Labs on day of discharge: Labs from last 24 hours 01/29/25 01/29/25 01/29/25 11:29 07:39 05:37 WBC 7.4 RBC 4.21 L Hgb 12.3 L Hct 38.7 L MCV 91.9 MCH 29.2 MCHC 31.8 L RDW 15.6 H Plt Count 217 MPV 9.7 POC Capillary Glucose 285 H 126 H 01/28/25 01/28/25 01/28/25 20:06 16:46 12:03 WBC RBC Hgb Hct MCV MCH MCHC RDW Plt Count MPV POC Capillary Glucose 319 H 340 H 358 H Preliminary micro results at discharge 01/27/25 01:08 Sputum Culture - Preliminary Sputum Discharge Plan Discharge Attending physician on discharge: Laurel Graf Consulting providers: Hattie Bro; Lonnie Ambrosio; Dorinda Graf; Jt Whaley; Juanpablo Olmedo Discharging Clinician: Laurel Graf Anticipated Discharge Date/Time: 01/29/25 11:55 Patient Disposition: Home Activity: may shower Diet: diabetic Discharge Instructions: Follow up with your PCP in 1-2 weeks Insulin with steroids for 3 more days Call your PCP if your blood sugars are over 300 twice or if they are ever under 100 Patient Instructions: Antibiotic Form Patient Language: Occitan Stand Alone Forms: General Discharge Information Follow-up/Referrals: Tiffanie,MD Naila [Primary Care Provider] - Discharge Medications: New Trelegy Ellipta 200-62.5-25 mcg Blister With Device 1 inh inhalation DAILYRT Qty: 1 2RF (DME) pen needle, diabetic [Candelaria 2nd Gen Pen Needle] 32 gauge x 5/32 needle See Rx Instructions .Route Qty: 50 0RF Rx Instructions: As directed alcohol swabs [Alcohol Pads] Pads, Medicated 1 pad topical .3 times a day Qty: 200 0RF albuterol sulfate 2.5 mg /3 mL (0.083 %) solution for nebulization 2.5 mg inhalation Q4H PRN (Reason: shortness of breath or wheezing) Qty: 75 2RF glucagon 3 mg/actuation spray,non-aerosol 3 mg intranasal ONCE Qty: 1 0RF Rx Instructions: as a single dose For low blood sugars if unable to eat or drink (DME) blood-glucose meter [Blood Glucose Monitoring] Kit See Rx Instructions .Route Qty: 1 1RF Rx Instructions: As directed. Blood-glucose meter as covered by insurance ([facility]) lancets [Comfort EZ Lancets] 28 gauge misc See Rx Instructions .Route Qty: 100 11RF Rx Instructions: As directed--lancets and test strips per insurance. For checking blood sugar 4 times a day (before meals and bedtime) ([facility]) OneTouch Verio test strips Strip See Rx Instructions .Route Qty: 100 11RF Rx Instructions: As directed. For checking blood sugars 4 times a day (before meals and bedtime) Test strips per insurance Continued oxycodone 5 mg tablet 2.5 mg PO Q4H PRN (Reason: pain) Qty: 20 0RF lansoprazole 30 mg capsule,delayed release(DR/EC) 30 mg PO DAILY Qty: 90 3RF methocarbamol 750 mg tablet 750 mg PO TID PRN (Reason: muscle spasms) ergocalciferol (vitamin D2) 1,250 mcg (50,000 unit) capsule 1,250 mcg PO WEEKLY Rx Instructions: sunday administration metformin 500 mg tablet extended release 24 hr 500 mg PO BID calcitriol 0.25 mcg capsule 0.25 mcg PO EVERY OTHER DAY atorvastatin 40 mg tablet 40 mg PO DAILY albuterol sulfate [Ventolin HFA] 90 mcg/actuation HFA aerosol inhaler 2 puff INHALATION Q6H PRN (Reason: Shortness Of Breath Or Wheezing) Qty: 1 0RF Discontinued Trelegy Ellipta 100 mcg-62.5 mcg-25 mcg powder for inhalation 100-62.5-25 mcg blister with device 0RF insulin glargine [Lantus Solostar U-100 Insulin] 100 unit/mL (3 mL) insulin pen 10 unit subcut QPM Qty: 3 0RF ([facility]) pen needle, diabetic [BD Ultra-Fine Micro Pen Needle] 32 gauge x 1/4 needle See Rx Instructions .Route Qty: 100 0RF Rx Instructions: As directed oxycodone 5 mg tablet 2.5 mg PO Q4H PRN (Reason: pain) Qty: 20 0RF No Action metoprolol succinate 50 mg tablet extended release 24 hr 50 mg PO DAILY chlorthalidone 25 mg tablet 25 mg PO DAILY losartan 50 mg tablet 50 mg PO BID celecoxib 200 mg capsule 200 mg PO DAILY Humulin N NPH Insulin KwikPen 100 unit/mL (3 mL) insulin pen 20 unit SUBCUT .AM aspirin 81 mg tablet,chewable 81 mg PO DAILY Date of admission: 01/27/25 15:48 Primary Care Provider: Tiffanie,Naila Admitting Provider: Sofia Phipps Attending physician on admission: Laurel Graf Condition: Stable Quality VTE Prophylaxis VTE prophylaxis: mechanical ordered and pharmacologic ordered Hospitalist MIPS Heart Failure (Exclusion) Patient has history of Heart Transplant or Left Ventricular Assistive Device?: No IF YES, STOP HERE Heart Failure (Qualifier) Patient has current or prior documentation of LVEF less than or equal to 40%, or mod/servere depressed LVSF?: No IF NO, STOP HERE
== END 2025-01-29 15:00 | disposition home or self-care (01) | DRG 191 ==
LOC: ANHED 01-26 02:31 → ANH3MEDSUR 01-26 02:44
PROVIDERS: Nurse Practitioner; Admitting Provider Internal Medicine; Emergency Provider Physician Assistant; PCP Internal Medicine; Visit Provider Nurse Practitioner Acute Care
DX: J44.1 Chronic obstructive pulmonary disease with (acute) exacerbation (principal); E44.0 Moderate protein-calorie malnutrition; R91.1 Solitary pulmonary nodule; E11.9 Type 2 diabetes mellitus without complications; I10 Essential (primary) hypertension; E78.5 Hyperlipidemia, unspecified; I25.10 Atherosclerotic heart disease of native coronary artery without angina pectoris; K22.70 Barrett's esophagus without dysplasia; G25.81 Restless legs syndrome; K21.9 Gastro-esophageal reflux disease without esophagitis; M19.90 Unspecified osteoarthritis, unspecified site; K76.0 Fatty (change of) liver, not elsewhere classified; Z96.643 Presence of artificial hip joint, bilateral; Z87.891 Personal history of nicotine dependence; Z98.1 Arthrodesis status; Z90.49 Acquired absence of other specified parts of digestive tract; Z68.21 Body mass index [BMI] 21.0-21.9, adult
CPT/HCPCS: 36415; 71045; 71046; 80053; 82948; 83880; 85025; 85027; 85610; 85730; 87070; 87205; 87637; 93005; 94618; 94640; 96365; 96367; 96375; 99285; A9270; G0378; J0456; J0696; J1650; J1815; J2919; J3475; J7040; J7512

== ENCOUNTER 2025-02-04 15:05 | Emergency (ER) | payer MEDICARE, SELFPAY ==
--- NOTE | ~2025-02-04 | XR_ITS ---
HISTORY: fall COMPARISON: None TECHNIQUE: 3 views of the left shoulder were performed FINDINGS: No acute fracture. The glenohumeral and acromioclavicular joint space is maintained The visualized portion of the adjacent left lung is clear. The humeral head is well seated within the glenoid fossa. IMPRESSION: No acute fracture or anterior dislocation. Reviewed, dictated and finalized at location A.
--- NOTE | ~2025-02-04 | CT_ITS ---
History: Fall PROCEDURE: CT cervical spine without intravenous contrast. COMPARISON: None TECHNIQUE: Multiple contiguous axial images of the cervical spine were performed without the administration of i ntravenous contrast. DLP: 187 mGy-cm FINDINGS: Anterior fixation at the level of C5/C6 with ankylosis. Moderate kyphosis is also present. Heterogeneous appearance of the mineralization is noted. Specifically, a blastic lesion is identified at the level of C4, to the right of midline. No acute fractures are present. Severe emphysematous disease within the bilateral lung apices. No discrete soft tissue abnormality is present. The airway is patent. Impression: No acute fracture. Blastic lesion at the level of C4, to the right of midline for which correlation with patient's histo ry is recommended. Reviewed, dictated and finalized at location A. Impression: No acute fracture. Blastic lesion at the level of C4, to the right of midline for which correlatio n with patient's history is recommended.
--- NOTE | ~2025-02-04 | CT_ITS ---
History: Fall PROCEDURE: CT head without contrast. COMPARISON: None 02/28/2023 TECHNIQUE: Axial imaging of the head performed from the skull base to the vertex without IV contrast. Sagittal a nd coronal reformations obtained. DLP: 605 mGy-cm FINDINGS: The ventricles are normal in size, shape and position. There is no mass, mass effect or midline shift. There is no abnormal extra-axial fluid collection or intracranial hemorrhage. Visualized paranasal sinuses are clear. The mastoid air cells are well aerated. No acute displaced fractures within the overlying cranium. Impression: No acute intracranial hemorrhage or suspicious mass effect. Reviewed, dictated and finalized at location A. Impression: No acute intracranial hemorrhage or suspicious mass effect.
--- OUTSIDE RECORDS SUMMARY | 2025-02-04 15:07 | XMS_ITS | Clinical Summary ---
Author Organization [facility] Facility Address [address] [facility] [address] [address] Care Team Providers Care [employer] Farm Manager Name Role Phone Naila Moreno MD Primary Care Provider [phone] Social History Tobacco Use Types Packs/Day Years [...] patient's age to complete this topic Insurance [facility] Medicare Care Teams [employer] Farm Manager Relationship Specialty Start Date End Date Naila Moreno MD [address], [address] [place] [address] PCP - General Internal Medicine 11/30/23
--- OUTSIDE RECORDS SUMMARY | 2025-02-04 15:08 | XMS_ITS ---
Author Organization [facility] Address [address] [place] [address] Care Team Providers Care Apartment Assistant Manager Name Role Phone Sravan Owen Angie [phone] MEDICATIONS Medication SIG (Take, Route, Fr equency, Duration) Notes Start Date End Date Status Calcitriol 0.25 MCG 1 capsule Orally Onc e a day for 90 day(s) 08/01/2024 04/28/2025 Active SOCIAL HISTORY Sex Assigned At : Social History Observation Description Sex Assigned At Male Encounters Encounter Location Date Provider Diagnosis [place] [facility] [address] [facility] [address] [place] [address] 08/01/2024 Owen Hinson PLAN OF TREATMENT Medication Medication Name Sig Start Date Stop Date Notes Calcitriol 0.25 MCG 1 capsule Orally Onc e a day for 90 day(s) 08/01/2024 04/28/2025 Progress Notes * MAJOADOLFO CRISSDOB: [birth year] (74 yo M)Acc No.[id number]:08/01/2024 Patient: CRISS CALERO :1950 Age:74 Y Sex:Male Address:[address] [place] [address] * Refills Start Calcitriol Capsule, 0.25 MCG, Orally, 90 Capsule, 1 capsule, Once a day, 90 day(s), Refills=2 * true * Date:
--- OUTSIDE RECORDS SUMMARY | 2025-02-04 15:08 | XMS_ITS | CONTINUITY OF CARE DOCUMENT ---
Author Name cruz kitoctavio Address Unknown Organization [facility] Address [address] [place] [address] Phone [phone] Care Team Providers Care Interventional Nurse Name Role Phone Derrick Amos MD Unavailable CAITLIN RAMÍREZ MD Unavailable [phone] CAITLIN RAMÍREZ MD Unavailable [phone] PROBLEMS Condition Status Date Provider Notes Preop [...] In-person encounter Office Visit Steven Shaw NP [facility] - In-person encounter Office Visit Derrick Amos MD [facility] - In-person encounter Office Visit Derrick Amos MD [facility] Cardiology examination - In-person encounter Office Visit Derrick Amos MD [facility] TOBACCO ABUSE-QUIT - In-person encounter Office Visit Derrick Amos MD [facility] - In-person encounter Office Visit Derrick Amos MD [facility] - In-person encounter Office Visit Derrick Amos MD [facility] - In-person encounter Office Visit Derrick Amos MD [facility] CVA - In-person encounter Office Visit Derrick Amos MD [facility] - In-person encounter Office Visit Marshal Milner MD [facility] Preop examHypertensionDyslipidemiaDiabetes mellitusCOPDShortness of breathTOBACCO ABUSE-QUITArrhythmia VITAL SIGNS Date Observation Value Provider Body Mass Index (Ratio) 22.31 kg/m2 Arnie Shaw NP blood pressure, diastolic 101 mm[Hg] emerald Lim blood pressure, systolic 179 mm[Hg] Danna laura Lim oxygen saturation, oximetry 95 % [facility] pulse [facility] 71 /min [facility] respiratory rate E&M 12 /min [facility] weight E&M 130 [lb_av] [facility] height E&M 64 [in_i] [facility] blood pressure, cuff size regular An [...] morrison Aleman oxygen saturation, oximetry 94 % [facility] pulse rate 87 /min Kmaron [...] Jose Mata blood pressure, systolic 114 mm[Hg] oJvi Mata oxygen saturation, oximetry 98 % Benito Mata respiratory rate E&M 24 /min Benito Mata pulse rate 84 /min Benito Mata weight E&M 137 [lb_av] Benito Mata Body Mass Index (Ratio) 23.51 kg/m2 Portia Amos MD blood pressure, cuff size regular [facility] blood pressure, diastolic 93 mm[Hg] Ja rr blood pressure, systolic 169 mm[Hg] Jar ret pulse rate 63 /min Lucas oxygen saturation, oximetry 96 % respiratory rate E&M 16 /min Lucas weight E&M 137 [lb_av] Lucas height E&M 64 [in_i] Lucas Body Mass Index (Ratio) 23.34 kg/m2 Ricky Alrbight blood pressure, cuff size regular [facility] blood pressure, diastolic 95 mm[Hg] Ja blood pressure, systolic 176 mm[Hg] [facility] pulse rate 58 /min Lucas [...] pressure, diastolic, right arm 80 m m[Hg] [place] blood pressure, systolic, right arm 130 m m[Hg] blood pressure, diastolic 80 mm[Hg] Ki blood pressure, systolic 130 mm[Hg] Yane cuevas Brody oxygen saturation, oximetry 97 % respiratory rate E&M 16 /min pulse rate 64 /[facility]&M 143 [lb_av] height E&M 64 [in_i] blood pressure, resting Yes Kill n Brody ALLERGIES No Known Drug Allergies HISTORY OF MEDICATION USE Medication Status Instructions Dates Provider Indications [facility] mentviridiana chlorthalidone 25 mg tablet active TAKE [...] currently 1/2 Angel Quarles cigarette use yes [place] Ronn number of grandchildren Marshal Milner MD [...] Payer name Policy type / Coverage type [place] [employer] AARP MEDICARE ADVANTAGE ([facility] COMPLETE PPO) Other [id number] ADVANCE DIRECTIVES Name Date DISCUSSED - NO DECISION MADE TREATMENT PLAN Date Name Performer [id number],C,Per pcp Derrick Amos MD [id number],C,S tent to carotid. he should be on astatin but I am not sure. Derrick Amos MD [id number],C,N ot sure what he is on but he will see his PCP for a list of current meds B P today: 155/90 P rior BP: 176/100 (04/12/2023) Derrick Amos MD [id number],C,l ow risk for colonoscopy. BP is not well controlled, will have him come back in a week for BP check Derrick Amos MD [id number],C,n ot well controlled W ill add olmesartan [...] andidate for hip surgery. Denies hx of IN or chest pain. He reports many years [...]
--- OUTSIDE RECORDS SUMMARY | 2025-02-04 15:08 | XMS_ITS | Data Portability ---
Author Organization [facility] [employer], Main Office Address [address] [place] [address] Care Team Providers Care Title Lawyer Name Role Phone CAITLIN MORENO Primary Care Provider CAITLIN MORENO Referring Provider [phone] CROW BALDERRAMA Client Account Specialist DUNCAN SUAREZ Tool Room Supervisor MIGEL AMOS Roving Sizer JEROD FLETCHER General Surgeon BAILEY HERNANDEZ Orthopedic Surgeon Assessment Encounter Date Assessment Date Assessment LastModified by Organization Details LastModified Time 08/27/2024 08/27/2024 Assessment: Dysphonia Postnasal drip Nicotine smoke: 1 ppd 8917-8435 (quit 12 years in between) = 41 pack years Mild COPD RUL nodule Hypertension Plan: The following were reviewed and explained to the patient: Chest CT 09/21/22 7 mm RUL nodule Chest CT 03/07/24 no acute abnormality Chest CT 05/13/24 5 mm RUL nodule [facility] hospitalization 05/13/24 - 05/14/24 discharged on azithromycin, prednisone, Trelegy and albuterol inhalers [facility] hospitalization 05/26/24 - 05/30/24 Lab data 06/04/24 [...] positive Maribel. Positive Neer and Brandon. Positive [place]'s. X-rays of the shoulder were reviewed, demonstrating [...] Positive Maribel. Positive Neer and Brandon. Positive [place]'s. Motor: 5/5 strength. Limited by pain Sensation: [...] one, free + total, serum 2024 025 [email or web address] [facility] - Outpatient Lab, [address] [place] [address], [address], 11/20/2024 12:46:04 lipid panel, serum 2024 025 [email or web address] Not available 11/20/2024 12:46:03 CMP, serum or plasma 2024 025 PAZ Not available 12/16/2024 20:02:46 CBC w/ auto diff 2024 025 PAZ Not available 12/16/2024 20:02:46 TSH + free T4, serum 2024 025 Not available 11/20/2024 12:46:04 vitamin D, 25-hydrox y, total, serum 2024 025 [email or web address] [facility], [address] [place], [address], 11/20/2024 12:46:04 microalbu min, urine 2024 025 [email or web address] Not available 11/20/2024 12:46:02 glycohemo globin, total, blood 2024 025 [email or web address] Not available 11/20/2024 12:46:02 vitamin B12 + folate, serum or blood 2024 025 [email or web address] [facility], [address] [place], [address], 11/20/2024 12:46:04 testoster one, free + total, serum 2024 025 [email or web address] [facility], [address] [place], [address], 10/07/2024 12:29:42 lipid panel, serum 2024 025 [email or web address] Not available 10/07/2024 12:29:40 CMP, serum or plasma 2024 025 [email or web address] Not available 10/07/2024 12:29:41 CBC w/ auto diff 2024 025 Not available 10/07/2024 12:29:41 TSH + free T4, serum 2024 025 [email or web address] Not available 10/07/2024 12:29:41 vitamin D, 25-hydrox y, total, serum 2024 025 [email or web address] [facility], [address] [place], [address], 10/07/2024 12:29:42 microalbu min, urine 2024 025 [email or web address] Not available 10/07/2024 12:29:39 glycohemo globin, total, blood 2024 025 [email or web address] Not available 10/07/2024 12:29:40 vitamin B12 + folate, serum or blood 2024 025 [email or web address] [facility] Lab, [address] [place], [address], 10/07/2024 12:29:42 gram stain, sputum [email or web address] [place] [address] - Outpatient Lab, [address] [place], [address], 09/04/2024 15:26:10 culture, sputum 2023 024 [facility], [address] [place], [address], 08/28/2024 09:23:[address] referral - Please call patient to schedule an appointme nt. Thank you. 2024 025 NEO Hare MD, [address] [facility], [address], [address], 11/27/2024 11:20:42 nephrolog ist referral - Please call patient to schedule an appointme nt. Thank you. 2024 025 NEO Hinson MD (Nephrology, [address], [address], [place], [address], 11/27/2024 16:30:50 vascular surgeon referral - Please call patient to schedule an appointme nt. Thank you. 2024 025 [place], [address], [address], [place], [address], 11/27/2024 10:45:31 orthopedi c surgeon referral - Please call patient to schedule an appointme nt. Thank you. 2024 025 NEO Wilkins, [address], [address], [place], [address], 11/27/2024 10:40:31 gastroent erologist referral - Please call patient to schedule an appointme nt. Thank you. 2024 025 [facility], [address], [address], [place], [address], 12/01/2024 10:10:38 podiatris t referral - Please call patient to schedule an appointme nt. Thank you. 2024 025 PAZ Crow Joanna DPM, [address], [address], [place], [address], 12/04/2024 10:59:02 cardiolog ist referral - Please call patient to schedule an appointme nt. Thank you. 2024 025 [email or web address] [place], [address], [address], [place], [address], 12/25/2024 09:41:37 gastroent erologist referral - Please call patient to schedule an appointme nt. Thank you. 2024 025 [facility], [address], [address], [place], [address], 12/01/2024 10:10:37 physical therapist referral - Please schedule pt for L shoulder. Thanks 2024 025 [email or web address] [facility] [place], [address] [facility], [place], [address], 10/12/2024 20:27:32 nephrolog ist referral - Please call patient to schedule an appointme nt. Thank you. 2024 025 [email or web address] Owen Hinson MD (Nephrology, [address], [address], [place], [address], 12/25/2024 09:41:35 orthopedi c surgeon referral 2024 025 Bailye Hernandez MD, [address] [facility], [place], [address], 10/08/2024 17:47:12 orthopedi c surgeon referral - Please call patient to schedule. 2024 025 [email or web address] Bailey Hernandez MD, [address] [facility], [place], [address], 10/08/2024 17:47:11 gastroent erologist referral - Please call patient to schedule an appointme nt. Thank you. 2024 025 kendra Childers MD, [address] [facility], [address], [place], [address], 11/24/2024 17:58:06 cardiolog ist referral 2024 025 [email or web address] [place], [address] [facility], [address], [place], [address], 10/08/2024 17:46:51 gastroent erologist referral - Please call patient to schedule an appointme nt. Thank you. 2024 025 kendra Childers MD, [address] [facility], [address], [place], [address], 12/23/2024 08:40:[address] referral - Please call patient to schedule an appointme nt. Thank you. 2024 025 NEO Hare MD, [address] [facility], [address], [place], [address], 10/23/2024 12:20:31 podiatris t referral 2024 025 [email or web address] Crow Balderrama DPM, [address] [facility], [address], [place], [address], 10/08/2024 17:46:50 ENT surgery referral - Please call patient to schedule. 2023 024 [email or web address] 2 Barbara N Rik GLOVE OPERATOR, [address], [place], [address], 11/25/2024 08:19:42 Procedures injection /aspirati on joint/bur sa (PROC) 2024 025 [email or web address] In-Office Order, Internal Use Only DO Not Attach Compendium DO Not Attach Compendium, Do Not Delete/merge, [id number] 10/08/2024 14:40:14 Surgeries None recorded. Imaging MRI, shoulder, w/o contrast - Please contact pt to schedule apt. Thanks [address], [address], [place], [address], 12/05/2024 19:53:41 Medication Orders Celebrex 200 mg capsule [address] [facility], [address] [place] [address], [address], 12/05/2024 19:53:41 atorvasta tin 40 mg tablet 2024 [facility], [address] [place] [address], [address], 11/20/2024 12:44:48 metoprolo l succinate ER 50 mg tablet,ex tended release 24 hr 2024 [facility], [address] [place], [address], 11/20/2024 12:44:49 bupivacai ne HCl 0.5 % (5 mg/mL) injection solution [address] [facility], [address] [place] [address], [address], 10/12/2024 20:27:32 Kenalog 10 mg/mL suspensio n for injection [address] [facility], [address] [place] [address], [address], 10/12/2024 20:27:32 Mobic 15 mg tablet [address] [facility], [address] [place] [address], [address], 10/12/2024 20:27:32 meloxicam 7.5 mg tablet 2024 025 [facility], [address] [place] [address], [address], 10/07/2024 12:34:00 ipratropi um bromide 42 mcg (0.06 %) nasal spray 2023 024 [facility], [address] [place] [address], [address], 08/27/2024 09:26:59 albuterol sulfate HFA 90 mcg/actua tion aerosol inhaler 2023 024 [facility], [address] [place] [address], [address], 08/27/2024 09:26:55 Anoro Ellipta 62.5 mcg-25 mcg/actua tion powder for inhalatio n 2023 024 [facility], [address] [place] [address], [address], 08/27/2024 09:26:56 Patient TargetsNo targets recorded. Patient Instructions Encounter Date Encounter Id Patient Instructions Last Modified By Organization Details Last Modified Time 10/07/2024 [id number] diabetic eye exam* [email or web address] Not available 10/07/2024 12:29:43 11/20/2024 [id number] diabetic eye exam* [email or web address] Not available 11/20/2024 12:46:05 Reason for Referral ENT Surgery Referral for Dys phonia Please call patient to schedule. Referring Physician: Duncan Suarez, Pulmonary Disease, Encounter Date: 08/27/2024 Client Account Specialist Referral for Type 2 diabetes mellitus without complication Referring Physician: Caitlin Moreno Internal Medicine, Encounter Date: 10/07/2024 Roving Sizer Referral for Co ronary arteriosclerosis Referring Physician: Caitlin Moreno Internal Medicine, Encounter Date: 10/07/2024 Neurologist Referral for Tra nsient cerebral ischemia Please call patient to schedule an appointment. Thank you. Referring Physician: Caitlin Moreno Internal Medicine, Encounter Date: 10/07/2024 Outside Sales Representative Referral for Pr oteinuria Please call patient to schedule an appointment. Thank you. Referring Physician: Caitlin Moreno Internal Medicine, Encounter Date: 10/07/2024 Orthopedic Surgeon Referral for Pain of right knee joint Please call patient to schedule. Referring Physician: Caitlin Moreno Internal Medicine, Encounter Date: 10/07/2024 Assorter Laundry Referral for Melendez's esophagus Please call patient to schedule an appointment. Thank you. Referring Physician: Caitlin Moreno Internal Medicine, Encounter Date: 10/07/2024 Assorter Laundry Referral for Liver enzymes level above reference [...] Bailey Hernandez, Orthopedic Surgery, Encounter Date: 10/08/2024 Client Account Specialist Referral for Type 2 diabetes mellitus without complication Please call patient to schedule an appointment. Thank you. Referring Physician: Caitlin Moreno Internal Medicine, Encounter Date: 11/20/2024 Roving Sizer Referral for Co ronary arteriosclerosis Please call patient to schedule an appointment. Thank you. Referring Physician: Caitlin Moreno Internal Medicine, Encounter Date: 11/20/2024 Neurologist Referral for Tra nsient cerebral ischemia Please call patient to schedule an appointment. Thank you. Referring Physician: Caitlin Moreno Internal Medicine, Encounter Date: 11/20/2024 Outside Sales Representative Referral for Pr oteinuria Please call patient to schedule an appointment. Thank you. Referring Physician: Caitlin Moreno [facility] Medicine, Encounter Date: 11/20/2024 Assorter Laundry Referral for Melendez's esophagus Please call patient to schedule an appointment. Thank you. Referring Physician: Caitlin Moreno [facility] Medicine, Encounter Date: 11/20/2024 Assorter Laundry Referral for Liver enzymes level above reference range Please call patient to schedule an appointment. Thank you. Referring Physician: Caitlin Moreno [facility] Medicine, Encounter Date: 11/20/2024 Orthopedic Surgeon Referral for Pain of left shoulder joint Please call patient to schedule an appointment. Thank you. Referring Physician: Caitlin Moreno [facility] Medicine, Encounter Date: 11/20/2024 Vascular Surgeon Referral fo r Carotid artery stenosis Please call patient to schedule an appointment. Thank you. Referring Physician: Caitlin Moreno [facility] Medicine, Encounter Date: 11/20/2024 Results Created Date Observation Date Name Description Value Unit Range Abnormal Flag Note LastModifiedBy Organization Detail LastModifiedTime 08/27/20 24 08/30/2024 CULTU RE, SPUTU M/LOW ER RESPI RATOR Y culture, sputum/lower respiratory SEE NOTE abnormal CULTU RE, SPUTU M/LOW ER RESPI RATOR Y Micro Numbe r: [id number] Test Statu s: Final Speci men [...] or addit ional testi ng. Not Available [facility] [address] [place], [address], 08/30/2024 09:54:32 08/08/20 24 06/18/2024 compl ete PFT w/ post cox [facility]anson hodil ator altagracia metry * No observ ation record ed. BARCODE Not Available 2023 11:25:37 10/01/19 25 10/01/2024 imagi ng/di agnos tic resul t No observ ation record ed. [address], [place], [address], 10/01/2024 21:41:55 12/22/19 25 12/21/2024 imagi ng/di agnos tic resul t No observ ation record ed. [address], [place], [address], 12/21/2024 13:10:41 01/03/20 25 01/02/2025 imagi ng/di agnos tic resul t No observ ation record ed. [facility] [address], [place], [address], 01/02/2025 13:25:36 01/14/20 25 01/12/2025 imagi ng/di agnos tic resul t No observ ation record ed. [address], [place], [address], 01/13/2025 11:35:03 01/27/20 25 01/25/2025 imagi ng/di agnos tic resul t No observ ation record ed. [address], [place], [address], 01/26/2025 07:22:46 01/28/20 25 01/27/2025 imagi ng/di agnos tic resul t No observ ation record ed. [address], [place], [address], 01/27/2025 17:11:51 Result Notes None recorded. Problems Name Problem SNOMED Code Status Onset Date Resolution Date Notes Provider Name and Address Organization Details Recorded Time Carotid artery stenosis 96286765 Active 2022 Not Available [facility] 4 22:24:36 Coronary arteriosc lerosis 69135174 Active 2022 Not Available [facility] 4 22:24:36 Vitamin D deficienc y 04233302 Active 2022 Not Available [facility] 4 22:24:36 Carotid artery stenosis 61951591 Active 2022 Not Available [facility] 4 22:24:36 Male hypogonad ism 88029631 Active 2022 Not Available [facility] 4 22:24:36 Diabetic periphera l neuropath y 450393421 Active 2022 Not Available [facility] 4 22:24:36 Bilateral foot congenita l pes cavus 97337205899 024082 Active 2022 Not Available [facility] 4 22:24:35 Melendez's esophagus 597188150 Active 2022 Not Available [facility] 4 22:24:36 Transient cerebral ischemia 848261395 Active 2023 Caitlin albright MD [address], [place], [address] , [place] [facility] 4 12:46:26 Serum vitamin B12 below reference range 236949395 Active 2023 Caitlin albright MD [address], [address], [place], [address] , [place] [facility] 4 12:46:26 Chronic kidney disease 664176903 Active 2023 Caitlin albright MD [address], [place], [address] , [place] [facility] 4 10:23:58 Osteoarth ritis of right knee joint 83134167587 9100 Active 2023 ANGIE Martinez [address], [address], [place], [address] , [place] [facility] 4 16:55:12 Penile candidias is 373372884 Active 2023 Caitlin albright MD [address], [address], [place], [address] , [place] [facility] 4 14:16:16 Chronic obstructi ve pulmonary disease 67446645 Active 2023 Caitlin albright MD [address], [address], [place], [address] , [place] [facility] 4 14:16:16 Mild chronic obstructi ve pulmonary disease 340212533 Active 2023 Duncan Saurez MD [address], [address], [place], [address] , [place] [facility] 4 16:48:00 Posterior rhinorrhe a 66811334 Active 2023 Duncan Suarez MD [address], [address], [place], [address] , [place] [facility] 4 17:22:34 Dysphonia 46389900 Active 2023 Duncan Suarez MD [address], [address], [place], [address] , [place] [facility] 4 09:26:26 Liver enzymes level above reference range 812930264 Active 2024 Caitlin albright MD [address], [address], [place], [address] , [place] [facility] 5 12:14:26 Proteinur ia 62730508 Active 2024 Caitlin albright MD [address], [address], [place], [address] , [place] [facility] 5 12:14:26 Chronic pain 42848894 Active 2024 Caitlin albright MD [address], [address], [place], [address] , [place] [facility] 5 12:14:26 Type 2 diabetes mellitus without complicat ion 813287995 Active 2024 Caitlin albright MD [address], [address], [place], [address] , [place] [facility] 5 12:14:26 Pain of right knee joint 52715032569 4100 Active 2024 Caitlin albright MD [address], [address], [place], [address] , [place] [facility] 5 12:14:26 Abdominal pain 05922832 Active 2024 Caitlin albright MD [address], [address], [place], [address] , [place] [facility] 5 12:14:26 Pneumonia 755178269 Active 2024 Caitlin albright MD [address], [address], [place], [address] , [employer] [facility] [employer] [facility] 5 12:14:26 Acute allergic reaction 905295478 Active 2024 Ciatlin albright MD [address], [address], [place], [address] , [employer] [facility] 5 12:14:26 Pain of bilateral hip joints 97494343653 434064 Active 2024 Caitlin albright MD [address], [address], [place], [address] , [employer] [facility] 5 12:14:26 Pain of left shoulder joint 94710248634 067882 Active 2024 Caitlin albright MD [address], [place], [address] , [employer] [facility] 5 12:32:15 Chronic back pain 561839676 Active 1990 on pain meds from Dr Villatoro Not Available [facility] 4 22:24:35 Impacted cerumen 14209355 Completed Not Available [facility] 3 04:53:49 Gastroeso phageal reflux disease 721586621 Active Not Available [facility] 4 22:24:36 Microalbu minuria 452785561 Active 2021 Not Available [facility] 4 22:24:36 Restless legs 96731149 Active 2017 Not Available [facility] 4 22:24:36 Sinusitis 18740944 Completed Not Available [facility] 3 04:53:50 Solitary nodule of lung 675235934 Active 2022 Not Available [facility] 4 22:24:36 Herpes zoster 0614711 Completed Not Available [facility] 3 04:53:50 Pain of hip region 87165672 Completed Not Available [facility] 3 04:53:50 Dysuria 09932754 Completed Not Available [facility] 3 04:53:50 Hyperlipi demia 83650607 Active Not Available [facility] 4 22:24:36 Essential hypertens ion 03698962 Active Not Available [facility] 4 22:24:36 Diarrhea 49984502 Completed Not Available [facility] 3 04:53:51 Polyp of colon 97578623 Active Not Available [facility] 4 22:24:36 Notes:Medical History: TIA 2 [...] artery stent 2022 Cholecystectomy Occupational History: retired [employer] Problem Notes None recorded. Procedures Surgical History Date Name Laterality Status Provider Name and Address Organization Details Recorded Time 10/08/19 25 Ortho - Cortisone Injection completed Bailey Hernandez MD [address] [place] [address], [place], [address], [employer] 10/08/2024 15:44:23 06/04/20 24 Transitional_Car e_Management completed Caitlin Moreno MD [address] [place] [address], [place], [address], [employer] 06/04/2024 14:34:44 05/26/20 24 Transitional_Car e_Management completed Caitlin Moreno MD [address] [facility] [address], [place], [address], [employer] 05/26/2024 18:46:46 04/03/20 24 Medicare Wellness CPT Code, subsequent completed Sumeet Lai LPN [employer] 04/01/2024 12:41:54 05/02/20 23 Colonoscopy completed LEE Boyd [employer] 05/16/2023 14:33:53 02/01/20 Total hip arthroplasty completed Not Available [facility] 11/15/2022 04:43:55 Orthopedic Surgery completed Not Available [facility] 11/15/2022 04:43:55 Orthopedic Surgery completed Not Available [facility] 11/15/2022 04:43:55 Orthopedic Surgery completed Not Available [facility] 11/15/2022 04:43:55 insertion of carotid artery stent completed Mary Coley NATALYAJamaal [place] [facility] [employer] 03/28/2023 14:33:51 Imaging Results Imaging Date Name Status LastModified by Organization Details LastModified Time 06/18/2024 complete PFT w/ post bronchodilator spirometry* completed [facility] Information not available 08/08/2024 11:25:37 10/01/2024 imaging/diagnostic result active [address] [place] [address], [address], 10/01/2024 21:41:55 12/21/2024 imaging/diagnostic result active [address] [place] [address], [address], 12/21/2024 13:10:41 01/02/2025 imaging/diagnostic result active [facility], [place], [address], 01/02/2025 13:25:36 01/12/2025 imaging/diagnostic result active [address] [place] [address], [address], 01/13/2025 11:35:03 01/25/2025 imaging/diagnostic result active [address] [place] [address], [address], 01/26/2025 07:22:46 01/27/2025 imaging/diagnostic result active [address] [place] [address], [address], 01/27/2025 17:11:51 Procedure Notes None recorded. Medical Equipment None [...] mg by injectio n route. 2024 active [facility]: [id number] 4-20 Not Available Not Available Not [...] bromide 42 mcg (0.06 %) nasal spray [place] 1 spray 4 times a day by [...] Updated DateTime 4 162.56 cm 25.3 kg/m2 62448.8 g 98.2 [degF] 81 /min 97 % 97 % Gayle Quintanilla MA [employer] [facility] [employer] 08:54:56 Date Recorded Heart rate Respiratory rate Systolic blood pressure Diastolic blood pressure Provider Name and Address Organization Details Last Updated DateTime 08/27/2024 81 /min 17 /min 140 mm[Hg] 84 mm[Hg] Duncan jose MD [address] [facility] [address], [place], [address] , [employer] 08/27/2024 09:17:52 Date Recorded Body height Body mass index (BMI) Body weight Body temperature Heart rate Systolic blood pressure Diastolic blood pressure Provider Name and Address Organization Details Last Updated DateTime 5 162.56 cm 23.3 kg/m2 63843.5 6 g 97.7 [degF] 78 /min 140 mm[Hg] 80 mm[Hg] Mary Coley NATALYAJamaal [employer] 5 11:57:16 Date Recorded Body height Body mass index (BMI) Body weight Provider Name and Address Organization Details Last Updated DateTime 10/08/2024 162.56 cm 23.3 kg/m2 75425.56 g [employer] 10/08/2024 14:27:08 Date Recorded Body height Body mass index (BMI) Body weight Body temperature Heart rate Oxygen saturation Oxygen saturation in Arterial blood by Pulse oximetry Systolic blood pressure Diastolic blood pressure Provider Name and Address Organization Details Last Updated DateTime 162.56 cm 22.8 kg/m2 79290.7 9 g 97.8 [degF] 81 /min 97 % 97 % 160 mm[Hg] 82 mm[Hg] Gayle Quintanilla MA [employer] 5 11:56:05 Date Recorded Body height Body mass index (BMI) Body weight Provider Name and Address Organization Details Last Updated DateTime 12/03/2024 162.56 cm 23.3 kg/m2 77958.56 g [employer] 12/03/2024 14:53:40 Social History Question Answer Notes LastModified by Organization Details LastModified Time Tobacco Smoking Status Former Smoker quit 02/2023 Mary Coley NATALYAJamaal gee [employer] [facility] [employer] 03/28/2023 14:32:44 Do You Have An Advance Directive? Yes Patient Stated He Needs To Update Since . Recommended Working With An Aircraft Instrument Repairer. MIGRATION.100 [id number] Information not available 11/15/2022 Do You Wear A Helmet When Biking? No Does Not Bike [email or web address] Information not available 04/03/2024 Are You Blind Or Do You Have Difficulty Seeing? No MIGRATION.016 [id number] Information not available 11/15/2022 Is Blood Transfusion Acceptable In An Emergency? Yes [email or web address] Information not available 04/03/2024 What Is Your Level Of Caffeine Consumption? Moderate MIGRATION.247 [id number] Information not available 11/15/2022 How Much Tobacco Do You Chew? None MIGRATION.215 [id number] Information not available 11/15/2022 In The 14 Days Before Symptom Onset, Have You Had Close Contact With A Laboratory-conf irmed COVID-19 While That Case Was Ill? No MIGRATION.271 [id number] Information not available 11/15/2022 In The 14 Days Before Symptom Onset, Have You Had Close Contact With A Person Who Is Under Investigation For COVID-19 While That Person Was Ill? No MIGRATION.151 [id number] Information not available 11/15/2022 Are You Deaf Or Do You Have Serious Difficulty Hearing? No MIGRATION.944 4386051 Information not available 11/15/2022 What Type Of Diet Are You Following? REGULAR MIGRATION.200 [id number] Information not available 11/15/2022 Which Illicit Or Recreational Drugs Have You Used? None MIGRATION.409 0660308 Information not available 11/15/2022 What Is The Highest Grade Or Level Of School You Have Completed Or The Highest Degree You Have Received? KD35604-7 [email or web address] Information not available 04/03/2024 Do You Have An Electrostatic Air Filter? No Information not available 08/27/2024 How Many Days Of Moderate To Strenuous Exercise, Like A Brisk Walk, Did You Do In The Last 7 Days? 2 [email or web address] Information not available 04/03/2024 On Those Days That You Engage In Moderate To Strenuous Exercise, How Many Minutes, On Average, Do You Exercise? 30 [email or web address] Information not available 04/03/2024 Have There Been Any Changes To Your Family Or Social Situation? No MIGRATION.313 0862247 Information not available 11/15/2022 What Is The Fluoride Status Of Your Home? Unknown MIGRATION.042 5079879 Information not available 11/15/2022 When Did You Quit Smoking? 1-5yearssincelastc igarette [email or web address] Information not available 04/05/2023 Are There Any Guns Present In Your Home? No MIGRATION.244 9432855 Information not available 11/15/2022 Do You Have A Humidifier? No Information not available 08/27/2024 Do You Use Insect Repellent Routinely? No MIGRATION.536 8745455 Information not available 11/15/2022 Where Do You Live? SingleLevelHouse MIGRATION.235 [id number] Information not available 11/15/2022 Presence Of Domestic Violence No [email or web address] Information not available 04/03/2024 Guns Present In The Home? No [email or web address] Information not available 04/03/2024 Are You Able To Care For Yourself? Yes [email or web address] Information not available 04/03/2024 Are You Blind Or Do Yo Have Difficulty Seeing? No [email or web address] Information not available 04/03/2024 Are You Deaf Or Do You Have Serious Difficulty Hearing? No [email or web address] Information not available 04/03/2024 General Stress Level? Low [email or web address] Information not available 04/03/2024 Live Alone Of With Others? With Others Dtr. And Her Family Lives Woth Patient [email or web address] Information not available 04/03/2024 Do You Have A Medical Power Of Aircraft Instrument Repairer? No [email or web address] Information not available 04/03/2024 Do You Have Moisture Problems In Your Home? No Information not available 08/27/2024 What Was The Date Of Your Most Recent Tobacco Screening? 11/20/2024 Information not available 11/20/2024 What Is Your Current Pack Years? 30ormorepackyears MIGRATION.593 [id number] Information not available 11/15/2022 Do You Have Any Pets? No 1 Dog 1 Cat [email or web address] Information not available 04/03/2024 What Is Your Relationship Status? MIGRATION.046 [id number] Information not available 11/15/2022 Do You Use Your Seat Belt Or Car Seat Routinely? Yes MIGRATION.629 1933752 Information not available 11/15/2022 Do You Have Smoke And Carbon Monoxide Detectors In Your Home? Yes MIGRATION.892 [id number] Information not available 11/15/2022 At What Age Did You Start Smoking Tobacco? 18 MIGRATION.313 5403150 Information not available 11/15/2022 Are You Passively Exposed To Smoke? No Information not available 04/03/2024 Are There Any Smokers In Your House? No Information not available 04/03/2024 How Much Tobacco Do You Smoke? No Was 1/2 Ppd Information not available 03/28/2023 What Types Of Sporting Activities Do You Participate In? None [email or web address] Information not available 04/03/2024 Do You Use Sunscreen Routinely? Yes MIGRATION.983 [id number] Information not available 11/15/2022 How Many Years Have You Smoked Tobacco? 53 MIGRATION.709 6199243 Information not available 11/15/2022 Have You Recently Traveled Abroad? No MIGRATION.106 [id number] Information not available 11/15/2022 Do You Have Difficulty Walking Or Climbing Stairs? No MIGRATION.526 6466498 Information not available 11/15/2022 Do You Have Any Dietary Restrictions? No MIGRATION.862 1103984 Information not available 11/15/2022 Sex: Male Functional Status Question Answer Note LastModified by Kitenga ion Details LastModified Time Do you use any illicit or recreational drugs? No MIGRATION.460038 0935 Information not available 11/15/2022 Do you or have you ever used any other forms of tobacco or nicotine? No MIGRATION.994373 0093 Information not available 11/15/2022 What is your level of alcohol consumption? None MIGRATION.317268 3683 Information not available 11/15/2022 Are you currently employed? No Information not available 03/28/2023 Have you been exposed to chemicals or toxins? No No that aware of Information not available 08/27/2024 Do you have transportation difficulties? No MIGRATION.346060 3806 Information not available 11/15/2022 Are you able to walk? YESWOREST MIGRATION.226524 6193 Information not available 11/15/2022 Do you have difficulty doing errands alone? No MIGRATION.485028 0311 Information not available 11/15/2022 Are you able to care for yourself? Yes MIGRATION.264829 6263 Information not available 11/15/2022 What is your occupation? Retired MIGRATION.983783 4652 Information not available 11/15/2022 Do you have difficulty dressing or bathing? No MIGRATION.361462 1432 Information not available 11/15/2022 What is your exercise level? Occasional Active life stlye Information not available 04/03/2024 Mental Status Question Answer Note LastModified by Organizat ion Details LastModified Time Do you feel stressed (tense, restless, nervous, or anxious, or unable to sleep at night)? [id number] MIGRATION.[id number] 26 Information not available 11/15/2022 Do you have difficulty concentrating, remembering or making decisions? No MIGRATION.46139936 26 Information not available 11/15/2022 Family History Relationship Description Onset Age of this Age Resolved Age Notes LastModified by Organization Details LastModified Time Brother Essential hypertension MIGRATION.806 [id number] Not available 11/15/2022 04:44:01 Brother Malignant neoplastic disease Colon MIGRATION.283 [id number] Not available 11/15/2022 04:44:01 Father Essential hypertension MIGRATION.854 [id number] Not available 11/15/2022 04:44:01 Father Heart disease MIGRATION.449 [id number] Not available 11/15/2022 04:44:01 Mother Essential hypertension MIGRATION.111 [id number] Not available 11/15/2022 04:44:01 Mother Heart disease MIGRATION.041 [id number] Not available 11/15/2022 04:44:01 Sister Malignant neoplastic disease Breast MIGRATION.491 8210833 Not available 11/15/2022 04:44:02 Maternal Grandmother Family history of stroke [email or web address] Not available 2022 14:36:39 Mother Arthritis Not [...] or 50 mcg/0.25mL dose 1 completed SANDRA [place], [place] [employer] 04/01/2024 14:20:36 COVID-19, mRNA, LNP-S, PF, 100 mcg/0.5mL dose or 50 mcg/0.25mL dose 1 completed SANDRA [place], [place] - [employer] 04/01/2024 14:20:36 pneumococcal polysaccharide PPV23 3 completed SANDRA Rosa, [facility] 04/01/2024 14:20:36 Influenza, split virus, trivalent, PF 7 completed Sumeet Lai LPN null, [facility] 04/01/2024 14:20:37 COVID-19, mRNA, LNP-S, PF, 30 mcg/0.3 mL dose 1 completed Sumeet Lai LPN null, [facility] 04/01/2024 14:20:36 COVID-19, mRNA, LNP-S, PF, 30 mcg/0.3 mL dose 1 completed SANDRA Rosa, [facility] 04/01/2024 14:20:36 pneumococcal polysaccharide PPV23 7 completed SANDRA Rosa, [facility] 04/01/2024 14:20:36 Influenza, high-dose, trivalent, PF 9 completed Not Available [facility] 10/02/2023 01:29:04 Influenza, high-dose, trivalent, PF 8 completed Not Available [facility] 10/02/2023 01:29:04 Pneumococcal conjugate PCV 13 8 completed Sumeet Lai LPN gerard, [facility] 04/01/2024 14:20:36 Influenza, high-dose, trivalent, PF 5 completed Not Available [facility] 10/02/2023 01:29:04 pneumococcal polysaccharide PPV23 5 completed Not Available [facility] 10/02/2023 01:29:04 Influenza, split virus, trivalent, PF 4 completed SANDRA Rosa, [facility] 04/01/2024 14:20:37 Influenza, split virus, trivalent, PF 3 completed Sumeet Lai LPN gerard, [facility] 04/01/2024 14:20:37 Past Encounters Encounter ID Performer Location Encounter Start Date Encounter Closed Date Diagnosis/Indication Diagnosis SNOMED-CT Code Diagnosis ICD10 Code Diagnosis Note [id number] Josemanuel Jones MD [facility] [address] [place] [address] 05/26/2021 00:00:00 06/07/2021 17:13:19 [id number] MD VEGA [facility] [address] [place] [address] 05/26/2021 00:00:00 06/07/2021 17:22:34 [id number] Josemanuel Jones MD [facility] [address] [place] [address] 10/11/2021 00:00:00 10/11/2021 12:15:42 [id number] MD VEGA [facility] [address] [place] [address] 11/10/2021 00:00:00 11/10/2021 14:15:46 [id number] MD VEGA [facility] [address] [place] [address] 12/21/2021 00:00:00 12/21/2021 12:26:48 [id number] MD ROSA [facility] [address] [place] [address] 02/09/2022 00:00:00 02/09/2022 13:02:43 [id number] Josemanuel Jones MD [facility] [address] [place] [address] 06/13/2022 00:00:00 06/13/2022 17:11:20 [id number] MD ROSA [facility] [address] [facility] [place] [address] 07/26/2022 00:00:00 07/26/2022 10:05:44 [id number] MD ROSA [facility] [address] [facility] [place] [address] 10/16/2022 00:00:00 10/16/2022 17:28:29 [id number] Josemanuel Jones MD [facility] [address] [place] [address] 02/22/2023 14:00:48 02/22/2023 14:44:11 Diabetes mellitus 28563178 E11.9 , advised to get labs Hyperlipidemia 73861661 E78.5 Zetia, needs labs Essential hypertension 92734246 I10 add HCTZ Restless legs 76165404 G 25.81 meds help Gastroesop hageal reflux disease 079508135 K21.9 meds help Chronic pain syndrome 37 4942380 G89.4 otc helps Pain of bi lateral hip joints 4997210897 1413739 M25.551 OTC Smoker 07033225 F17.200 advised to quit Solitary n odule of lung 527811200 R91.1 advised to quit smoking Adult heal th examination 144344070 Z00.00 colonoscop y- due, was ordered few times, he will call GI to schedule it, will not reorderPSA -07/07, WAS [id number] 09/23/2017PP 23- 07/28/2013 , 02/2017, 08/04/2015 influenza vaccine- 08/13/19CO VID- 12/26/2020 , 01/27/2021 Chronic ob structive pulmonary disease 10676771 J44.9 better Weakness o f left upper limb 4137108967 18047 M62.81 improved, watch, symptoms were vague Screening for malignant neoplasm of prostate 706570424 Z12.5 Depression screening 171 571116 Z13.31 neg Body mass index 20-24 - normal 646154684 Z68.23 [id number] Caitlin albright MD [facility] [address] [facility] [address] , [place] [address] 03/28/2023 13:57:30 03/28/2023 15:13:44 Screening - NAD 803274070 Z13.9 C-scope: Get this done or get the report if done Get yearly flu shotUTD on COVID X2, can do boostersUT D on PCVGet tdap if not doneGet Shingrix if not done RTC in 3 months, do labs, ER if worse, he did verbalize his understand ing of the above Hyperlipidemia 55412505 E78.5 On ASAOn atorvastat in 40mg dailyGet labs 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 638945558 E11.9 On metformin Get labs Gastroesop hageal reflux disease without esophagitis 038223717 K21.9 On omeprazole Get EGD done Chronic ob structive pulmonary disease 14893194 J44.9 On albuterolO n HHNsOn trelegy Carotid ar angel stenosis 62830860 I65.29 S/p stent in 03/09On ASAOn plavix Restless legs 77388299 G 25.81 On requipDoes well Ex-cigarette smoker 2810 73241 Z87.891 LDCT 09/21/2022 Get US AAA done Coronary arteriosclerosis 75113987 I25.10 CAD noted Get a referral to cardiology Dr Guevara Screening for malignant neoplasm of colon 635982047 Z12.11 Transient cerebral ischemia 700849377 G45.[address] Schumacher his neurologis t, get last OV note S/p hospitaliz ation, does very well now, no residual symptoms at this timeOn ASAOn [place]ixOn [place] in [id number] Duncan Suarez MD [facility] [address] [place] [address] 04/05/2023 11:23:02 04/06/2023 07:44:46 Dyspnea on exertion 96921429 R06.09 R05.9 T78.40XA D89.9 Solitary n odule of lung 103266096 R91.1 [id number] Caitlin albright MD [facility] [address] [facility] y , [facility] [place] [address] 05/16/2023 14:18:54 05/16/2023 15:23:17 Screening - NAD 078535374 Z13.9 C-scope: Get this done or get the report if done Get yearly flu shotUTD on COVID X2, can do boostersUT D on PCVGet tdap if not doneGet Shingrix if not done RTC in 3 months, do labs, ER if worse, he did verbalize his understand ing of the above Hyperlipidemia 34682177 E78.5 On ASAOn atorvastat in 40mg dailyGet labs 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 050076818 E11.9 On metforminO n FarxigaOn olmesartan Get labs Gastroesop hageal reflux disease without esophagitis 208117362 K21.9 On omeprazole Get EGD done Chronic ob structive pulmonary disease 43718881 J44.9 On albuterolO n HHNsOn trelegy Carotid ar angel stenosis 09589286 I65.29 S/p stent in 03/09On ASAOn plavix Restless legs 32386973 G 25.81 On requipDoes well Ex-cigarette smoker 2810 63550 Z87.891 LDCT 09/21/2022 Get US AAA done as US AAA 04/04/2023 was non diagnostic d/t bowel gas Coronary arteriosclerosis 59565290 I25.[address] Bette 04/12/2023 , f/u in one month Screening for malignant neoplasm of colon 634345083 Z12.11 Transient cerebral ischemia 127081419 G45.9 CT Angio: 02/28/2023 : High grade stenosis, R ICA, s/p stent He does see Dr Schumacher his neurologis t, get last OV note S/p hospitaliz ation, does very well now, no residual symptoms at this timeOn ASAOn plavixOn atorvastat in Liver enzy mes level above reference range 869243568 R74.8 Get labs and US liver Proteinuria 19763793 R80 .9 Sees nephrology Pain of ri ght knee joint 0571466311 92356 M25.561 Get a referral to [facility] Male hypogonadism 292922 06 E29.1 get labs Serum shane min B12 below reference range 303838634 R79.89 Vitamin D deficiency 347 46894 E55.9 [id number] Balbir Wilkins MD [facility] Ortho [address] [address] 05/24/2023 13:58:48 05/24/2023 16:01:49 Pain of right knee joint 4334402666 13659 M25.398 [id number] Crow Balderrama DPM [facility] [place] [address] [facility] [address] [place] [address] 07/10/2023 14:30:43 07/16/2023 09:50:24 Diabetic peripheral neuropathy 243579923 E11.40 Rx diabetic shoes and insertsPat ient educated on neuropathy , diabetes, diabetic diet, and daily foot exams. Patient is to check feet daily for new wounds, blisters, redness to prevent infection and ulceration s to the feet. Patient will return to clinic in 3 months for diabetic foot workup. Bilateral foot congenital pes cavus 1122929575 0965238 Q66.71 Q66.72 Recommend diabetic shoes and inserts History of cerebrovascular accident 056837122 Z86.73 continue with PCP recommenda tion [id number] Caitlin albright MD [facility] [address] [facility] [place] [address] [place] [address] 08/30/2023 13:57:45 08/30/2023 15:23:44 Screening - NAD 945326736 Z13.9 C-scope: 05/02/2023 , Dr Dickson next in one year Get yearly flu shotUTD on COVID X2, can do boostersUT D on PCVGet tdap if not doneGet Shingrix if not done RTC in 3 months, do labs, ER if worse, he did verbalize his understand ing of the above Hyperlipidemia 42276914 E78.5 On ASAOn atorvastat in 40mg dailyGet labs 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 269964759 E11.9 On metforminO n FarxigaOn olmesartan Get labs Chronic ob structive pulmonary disease 37424145 J44.9 On albuterolO n HHNsOn trelegy Carotid ar angel stenosis 25510495 I65.29 S/p stent in 03/09On ASAOn plavix Restless legs 73246827 G 25.81 On requipDoes well Ex-cigarette smoker 2810 15767 Z87.891 LDCT 09/21/2022 Get US AAA done as US AAA 04/04/2023 was non diagnostic d/t bowel gas Coronary arteriosclerosis 63699840 I25.10 CAD notedDr Bette 04/12/2023 , f/u in one month Transient cerebral ischemia 569064019 G45.9 CT Angio: 02/28/2023 : High grade stenosis, R ICA, s/p stent He does see Dr Schumacher his neurologis t, get last OV note S/p hospitaliz ation, does very well now, no residual symptoms at this timeOn ASAOn plavixOn atorvastat in Liver enzy mes level above reference range 091111655 R74.8 ALP 128 03/28/2023 Get labs and US liver Proteinuria 00688580 R80 .9 US kidney 05/25/2023 : Dr Hinson IJ Pain of ri ght knee joint 3638099097 28253 M25.561 MRI R knee: 06/07/2023 : Dr Wilkins Male hypogonadism 800530 06 E29.1 get labs Serum shane min B12 below reference range 975682817 R79.89 Vitamin D deficiency 347 66649 E55.9 Get labs Melendez's esophagus 3029 67450 K22.70 On omeprazole 05/02/2023 : EGD BarrettsNe eds a follow up with GI Impacted c erumen of bilateral ears 4833105553 761323 H61.23 Moderate cerumen extracted from his fuentes ears 08/30/2023 , he tolerated the procedure well Upper resp iratory infection 94799991 J06.9 Get flu/strep and COVID 19 testStart on Z-pack, ER if worse Chronic pain 89357297 G8 9.29 Get a referral to pain management [id number] Caitlin albright MD [facility] [address] [facility] [address] [place] [address] 09/25/2023 15:56:57 09/25/2023 16:44:27 Abdominal pain 42854659 R10.9 Seen in the ER on 09/19/2023 [...] will see him this 09/27/2023 at 10.30am [id number] Jerod patricia MD [facility] General Surgery [address] [address] [place] [address] 09/27/2023 11:17:35 09/27/2023 14:26:21 Foreign body 312661311 Z87.821 Foreign body cecum [id number] Caitlin albright MD [facility] Internal Med [address] [address] [place] [address] 11/29/2023 09:48:07 11/29/2023 10:38:28 Screening - NAD 094322837 Z13.9 C-scope: 05/02/2023 , Dr Dickson next in one year Get yearly flu shotUTD on COVID X2, can do boostersUT D on PCVGet tdap if not doneGet Shingrix if not doneGet RSV vaccine RTC in 3 months, do labs, ER if worse, he did verbalize his understand ing of the above Hyperlipidemia 89945092 E78.5 On ASANot on atorvastat in 40mg daily On rosuvastat in 40mg dailyGet labs 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 194257231 E11.9 On metforminO n FarxigaNot on olmesartan Get labs Chronic ob structive pulmonary disease 26674488 J44.9 On albuterolO n HHNsNot on trelegy Carotid ar angel stenosis 45312233 I65.29 S/p stent in ASAOn plavix Restless legs 70238419 G 25.81 Not on requipOn lyrica 75mg Dr Riojas well Ex-cigarette smoker 2810 35473 Z87.891 LDCT 09/21/2022 Get US AAA done as US AAA 04/04/2023 was non diagnostic d/t bowel gas US AAA 09/18/2023 : Neg Coronary arteriosclerosis 53954700 I25.10 CAD notedDr Bette 04/12/2023 , f/u in one month, referred 11/29/[address] Sravan OTERO Transient cerebral ischemia 416762707 G45.9 CT Angio: 02/28/2023 : High grade stenosis, R ICA, s/p stent He does see Dr Naseer his neurologis t, get last OV note S/p hospitaliz ation, does very well now, no residual symptoms at this timeOn ASANot on plavixNot on atorvastat in On rosuvatati n 40mg daily Liver enzy mes level above reference range 756450938 R74.8 ALP 128 03/28/2023 Get labs and US liver Addendum: 12/07/23US liver 12/03/2023 : Hepatic steatosis, triage notified Proteinuria 02395417 R80 .9 US kidney 05/25/2023 : Dr Hinson IJ Pain of ri ght knee joint 7903082862 97175 M25.561 MRI R knee: 06/07/2023 : Dr Lemon erred to Dr Hernandez Male hypogonadism 907407 06 E29.1 get labs Serum shane min B12 below reference range 990767114 R79.89 Vitamin D deficiency 347 38261 E55.9 Get labs Melendez's esophagus 3029 22841 K22.70 On omeprazole 05/02/2023 : EGD DevonteGa eds a follow up with GI Chronic pain 27606378 G8 9.29 Get a referral to pain management today 11/29/2023 , states that he does not want any pain meds at all Abdominal pain 53057928 R10.9 Seen in the ER on 09/19/2023 [...] : Case sent Acute magi rgic reaction 808949804 T78.40XA Seen in ERTreated with steroids, now is doing well Chronic ki dney disease 208915887 N18.9 On calcitriol On losartan Sees Dr Hinson IJ [id number] Caitlin albright MD [facility] [place] [address] [facility] , [place] [address] 12/10/2023 10:45:19 12/10/2023 11:26:10 Type 2 diabetes mellitus without complication 434020952 E11.9 On metformin ER 500mg daily, will increase to bidOn Farxiga 10mg daily but was not taking d/t costGet on Jardiance 10mg dailyIs adamant that he does not want to start on any insulin, states that he also was not very compliant with the metforminH e has be told to take his meds on scheduleNo t on olmesartan Get labs Penile candidiasis 37201 8000 B37.49 No more rash noted, he is using his nystatin-t rimacinolo ne cream and states that the rash is cleared up now Screening - NAD 46180068 3 Z13.9 C-scope: 05/02/2023 , Dr Dickson next in one year Get yearly flu shotUTD on COVID X2, can do boostersUT D on PCVGet tdap if not doneGet Shingrix if not doneGet RSV vaccine RTC in 3 months, do labs, ER if worse, he did verbalize his understand ing of the above Hyperlipidemia 58089102 E78.5 On ASAOn atorvastat in 40mg daily, states today 12/10/2023 that he has not been compliant with taking his medication , advised to become compliant and repeat the labs Not on rosuvastat in 40mg dailyGet labs Chronic ob structive pulmonary disease 86283926 J44.9 On albuterolO n HHNsNot on trelegy Carotid ar angel stenosis 77670434 I65.29 S/p stent in ASANot on plavixNeed s to see cardiology Restless legs 15832272 G 25.81 Not on requipOn lyrica 75mg Dr Riojas well Ex-cigarette smoker 0630 49410 Z87.891 LDCT 09/21/2022 Get US AAA done as US AAA 04/04/2023 was non diagnostic d/t bowel gas US AAA 09/18/2023 : Neg Coronary arteriosclerosis 81082040 I25.10 CAD notedDr Bette 04/12/2023 , f/u in one month, referred 11/29/[address] Sravan Hein to see Dr Amos Transient cerebral ischemia 036676039 G45.9 CT Angio: 02/28/2023 : High grade stenosis, R ICA, s/p stent He does see Dr Schumacher his neurologis t, get last OV note S/p hospitaliz ation, does very well now, no residual symptoms at this timeOn ASANot on plavixNot on atorvastat in On rosuvatati n 40mg daily Liver enzy mes level above reference range 100807185 R74.8 ALP 128 03/28/2023 Get labs and US liver Addendum: 12/07/23US liver 12/03/2023 : Hepatic steatosis, triage notified Proteinuria 13436205 R80 .9 US kidney 05/25/2023 : Dr Sravan OTERO Pain of ri ght knee joint 9807146788 18474 M25.561 MRI R knee: 06/07/2023 : Dr Lemon erred to Dr Hernandez Male hypogonadism 406908 06 E29.1 get labs Serum shane min B12 below reference range 834542543 R79.89 Vitamin D deficiency 347 60177 E55.9 Get labs Melendez's esophagus 3029 40521 K22.70 On omeprazole 05/02/2023 : EGD BarrettsNe eds a follow up with GI Chronic pain 37586142 G8 9.29 Get a referral to pain management today 11/29/2023 , states that he does not want any pain meds at all Abdominal pain 89319289 R10.9 Seen in the ER on 09/19/2023 [...] abd pain noted Acute magi rgic reaction 101281887 T78.40XA Seen in ERTreated with steroids, now is doing well Chronic ki dney disease 712219397 N18.9 On calcitriol On losartan Sees Dr H[place] IJ [id number] Bailey Hernandez MD [facility] [place] [address] [place] [address] 12/25/2023 14:36:22 12/25/2023 15:57:04 Pain of right knee joint 6926978741 35932 M25.561 Osteoarthr itis of right knee joint 5611174186 44966 M17.11 [id number] Bailey Hernandez MD [facility] [place] [address] [place] [address] 01/01/2024 14:25:42 01/01/2024 15:14:58 Pain of bilateral hip joints 3897587857 2423336 M25.551 M25.552 Trochanter ic bursitis of right hip 1563816379 09042 M70.61 History of total replacement of bilateral hip joints 5171000498 572684 Z96.212 [id number] Caitlin albright MD [facility] Internal Med [facility] [address] [facility] [place] [address] 04/03/2024 10:08:29 04/03/2024 10:56:36 Screening - NAD 538570813 Z13.9 C-scope: 05/02/2023 , Dr Dickson next in one yearC-scop e: 01/04/2024 : Dr Dickson next in 2 years Get yearly flu shotUTD on COVID X2, can do boostersUT D on PCVGet tdap if not doneUTD on ShingrixGe t RSV vaccine RTC in 3 months, do labs, ER if worse, he did verbalize his understand ing of the above Type 2 aruora betes mellitus without complication 116440560 E11.9 On metformin ER 500mg bidOn Farxiga 10mg daily but was not taking d/t Carson Jardiance 10mg daily Is adamant that he does not want to start on any insulin, states that he also was not very compliant with the metforminH e has be told to take his meds on scheduleNo t on olmesartan Get labs Penile candidiasis 04454 8000 B37.49 No more rash noted, he is using his nystatin-t rimacinolo ne cream and states that the rash is cleared up now Hyperlipidemia 15539717 E78.5 On ASAOn atorvastat in 40mg daily Not on rosuvastat in 40mg dailyGet labs Chronic ob structive pulmonary disease 20866252 J44.9 On albuterolO n HHNsNot on trelegyNee ds to keep apt with Dr Suarez Carotid ar angel stenosis 65567811 I65.29 S/p stent in 03/09On ASANot on plavixDr Bette [facility] 02/21/2024 , next in 6 months Restless legs 32050555 G 25.81 Not on requipOn lyrica 75mg Dr Riojas well Ex-cigarette smoker 2810 91871 Z87.891 LDCT 09/21/2022 Get US AAA done as US AAA 04/04/2023 was non diagnostic d/t bowel gas US AAA 09/18/2023 : Neg Coronary arteriosclerosis 76588025 I25.10 CAD noted On losartan 50mg daily Dr Sravan palma done 25mg dailyDr Bette 02/20/2023 Transient cerebral ischemia 683866061 G45.9 CT Angio: 02/28/2023 : High grade stenosis, R ICA, s/p stent He does see Dr Schumacher his neurologis t, get last OV note S/p hospitaliz ation, does very well now, no residual symptoms at this timeOn ASANot on plavixNot on atorvastat in On rosuvatati n 40mg daily Liver enzy mes level above reference range 618778201 R74.8 ALP 128 03/28/2023 Get labs and US liver Addendum: 12/07/23US liver 12/03/2023 : Hepatic steatosis, triage notified Proteinuria 54575114 R80 .9 US kidney 05/25/2023 : Dr Hinson IJ Pain of ri ght knee joint 7384132846 81972 M25.561 MRI R knee: 06/07/2023 : Dr Lemon erred to Dr Hernandez Male hypogonadism 323692 06 E29.1 get labs Serum shane min B12 below reference range 769800553 R79.89 Vitamin D deficiency 347 48886 E55.9 Get labs Melendez's esophagus 3029 91301 K22.70 On omeprazole 05/02/2023 : EGD BarrettsNe eds a follow up with GI EGD 01/04/2024 : 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 Addendum: 04/03/2024 :See case, needs to get another EGD, he was notified Chronic pain 26529617 G8 9.29 Referred to pain management 11/29/2023 ,Advised not to take any NSAIDs d/t CAD and CKD issuesOK to refill his methocarba mol to take as needed in very limited quantities , if he needs more see pain management Abdominal pain 94300114 R10.9 Seen in the ER on 09/19/2023 [...] abd pain noted Acute magi rgic reaction 656293988 T78.40XA Seen in ERTreated with steroids, now is doing well Chronic ki dney disease 925841499 N18.9 On calcitriol On losartan Sees Dr Sravan OTERO Pain of bi lateral hip joints 9758573242 2302973 M25.551 M25.552 Marcus ADAMS 01/01/2024 Adult heal th examination 316734832 Z00.00 Screening for disorder 700212559 Z13.9 Spasm 71963925 R25.2 Screening for malignant neoplasm of prostate 998442701 Z12.5 [id number] Caitlin albright MD [facility] [place] [address] [facility] , [place] [address] 05/26/2024 16:14:38 05/26/2024 17:25:00 Screening - NAD 701020414 Z13.9 C-scope: 05/02/2023 , Dr Dickson next [...] 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 603674814 E11.9 On metformin ER 500mg bidOn Farxiga 10mg daily but was not taking d/t Carson Jardiance 10mg daily Is adamant that he does not want to start on any insulin, states that he also was not very compliant with the metforminH e has be told to take his meds on scheduleNo t on olmesartan Get labs Penile candidiasis 14246 8000 B37.49 No more rash noted, he is using his nystatin-t rimacinolo ne cream and states that the rash is cleared up now Hyperlipidemia 03388330 E78.5 On ASAOn atorvastat in 40mg daily Not on rosuvastat in 40mg dailyGet labs Chronic ob structive pulmonary disease 09959790 J44.9 On albuterolO n FREDINsOn cecylegy as per d/c from [facility] 05/14/2024 Needs to keep apt with Dr Suarez!Today 05/26/2024 : Severe SOB and YAN, at this, he was referred to ER, 911 ambulance called and [facility] Carotid ar angel stenosis 98037864 I65.29 S/p stent in 03/09On ASANot on plavixDr Bette [facility] 02/21/2024 , next in 6 months Restless legs 70107242 G 25.81 Not on requipOn lyrica 75mg in am and [address] Riojas well Ex-cigarette smoker 2810 86257 Z87.891 LDCT 09/21/2022 Get US AAA done as US AAA 04/04/2023 was non diagnostic d/t bowel gas US AAA 09/18/2023 : Neg Coronary arteriosclerosis 67456921 I25.10 CAD noted On losartan 50mg daily Dr Sravan Hodges chlorthali done 25mg dailyDr Bette 02/20/2023 Transient cerebral ischemia 347823508 G45.9 CT Angio: 02/28/2023 : High grade stenosis, R ICA, s/p stent He does see Dr Schumacher his neurologis t, get last OV note S/p hospitaliz ation, does very well now, no residual symptoms at this timeOn ASANot on plavixNot on atorvastat in On rosuvastat in 40mg daily Liver enzy mes level above reference range 211200110 R74.8 ALP 128 03/28/2023 Get labs and US liver Addendum: 12/07/23US liver 12/03/2023 : Hepatic steatosis, triage notified Proteinuria 82760050 R80 .9 US kidney 05/25/2023 : Dr Sravan OTERO Pain of ri ght knee joint 5515668881 74255 M25.561 MRI R knee: 06/07/2023 : Dr Lemon erred to Dr Hernandez Male hypogonadism 055836 06 E29.1 get labs Serum shane min B12 below reference range 737862934 R79.89 Vitamin D deficiency 347 75306 E55.9 Get labs Melendez's esophagus 3029 25186 K22.70 On omeprazole 05/02/2023 : EGD BarrettsNe eds a follow up with GI EGD 01/04/2024 : 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 Addendum: 04/03/2024 :See case, needs to get another EGD, he was notified Chronic pain 51812667 G8 9.29 Referred to pain management 11/29/2023 ,Advised not to take any NSAIDs d/t CAD and CKD issuesOK to refill his methocarba mol to take as needed in very limited quantities , if he needs more see pain management Abdominal pain 66072264 R10.9 Seen in the ER on 09/19/2023 [...] : Case sent Acute magi rgic reaction 076683431 T78.40XA Seen in ERTreated with steroids, now is doing well Chronic ki dney disease 850942098 N18.9 On calcitriol On chlorthali done 25mg dailyOn losartan 50mg daily Sees Dr Sravan OTERO Pain of bi lateral hip joints 4432936300 5568369 M25.551 M25.552 Marcus ADAMS 01/01/2024 Screening for malignant neoplasm of prostate 743193119 Z12.5 Transition of care 44599 99559 105 Z75.8 [id number] Caitlin albright MD [facility] [place] [address] [facility] [place] [address] 06/04/2024 14:22:04 06/04/2024 15:03:41 Screening - NAD 595385880 Z13.9 C-scope: 05/02/2023 , Dr Dickson next [...] 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 803324859 E11.9 On metformin ER 500mg bidOn Farxiga 10mg daily but was not taking d/t Carson Jardiance 10mg dailyOn lantus 10U at bedtime Not on olmesartan Get labs Penile candidiasis 73694 8000 B37.49 No more rash noted, he is using his nystatin-t rimacinolo ne cream and states that the rash is cleared up now Hyperlipidemia 00912800 E78.5 On ASAOn atorvastat in 40mg daily Not on rosuvastat in 40mg dailyGet labs Chronic ob structive pulmonary disease 26355931 J44.9 On albuterolO n HHNsOn trelegy Needs to keep apt with Dr Suarez!Today 05/26/2024 : Severe SOB and YAN, at this, he was referred to ER, 911 ambulance called and [facility] OV 06/04/2024 :Dr Suarez 06/04/2024 , keep apts with pulmonary Carotid ar angel stenosis 96180739 I65.29 S/p stent in 03/09On ASANot on plavixDr Bette [facility] 02/21/2024 , next in 6 months Restless legs 06755761 G 25.81 Not on requipOn lyrica 75mg in am and [address] Riojas well Ex-cigarette smoker 2810 69917 Z87.891 LDCT 09/21/2022 Get US AAA done as US AAA 04/04/2023 was non diagnostic d/t bowel gas US AAA 09/18/2023 : Neg Coronary arteriosclerosis 11328833 I25.10 CAD noted On losartan 50mg daily Dr Sravan palma done 25mg dailyOn metoprolol ER 50mg dailyDr Bette 02/20/2023 Transient cerebral ischemia 417276325 G45.9 CT Angio: 02/28/2023 : High grade stenosis, R ICA, s/p stent He does see Dr Schumacher his neurologis t, get last OV note S/p hospitaliz ation, does very well now, no residual symptoms at this timeOn ASANot on plavixNot on atorvastat in On rosuvastat in 40mg daily Liver enzy mes level above reference range 462208275 R74.8 ALP 128 03/28/2023 Get labs and US liver Addendum: 12/07/23US liver 12/03/2023 : Hepatic steatosis, triage notified Proteinuria 29229738 R80 .9 US kidney 05/25/2023 : Dr Hinson IJ Pain of ri ght knee joint 2381441471 17535 M25.561 MRI R knee: 06/07/2023 : Dr Lemon erred to Dr Hernandez Male hypogonadism 716962 06 E29.1 Get labs Serum shane min B12 below reference range 729237700 R79.89 Vitamin D deficiency 347 65444 E55.9 Get labs Melendez's esophagus 3029 10447 K22.70 On omeprazole 05/02/2023 : EGD BarrettsNe eds a follow up with GI EGD 01/04/2024 : 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 Addendum: 04/03/2024 :See case, needs to get another EGD, he was notified Chronic pain 77335569 G8 9.29 Referred to pain management 11/29/2023 ,Advised not to take any NSAIDs d/t CAD and CKD issuesOK to refill his methocarba mol to take as needed in very limited quantities , if he needs more see pain management Abdominal pain 33027405 R10.9 Seen in the ER on 09/19/2023 [...] Does well now Acute magi rgic reaction 904014571 T78.40XA Seen in ERTreated with steroids, now is doing well Chronic ki dney disease 723735157 N18.9 On calcitriol On chlorthali done 25mg dailyOn losartan 50mg daily Sees Dr Hinson IJ Pain of bi lateral hip joints 3767667005 3842446 M25.551 M25.552 Marcus ADAMS 01/01/2024 Screening for malignant neoplasm of prostate 823339977 Z12.5 Transition of care 45093 01026 105 Z75.8 Pneumonia 852337259 J18. 9 S/p d/c from 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 OV 06/04/2024 :Dr Suarez 06/04/2024 , [...] f/u on 07/08/2024 Carotid ar angel stenosis 63209426 I65.29 S/p stent in ASANot on plavixDr Bette [facility] 02/21/2024 , next in 6 months Restless legs 82979789 G 25.81 Not on requipOn lyrica 75mg in am and [address] Riojas well Ex-cigarette smoker 2810 62820 Z87.891 LDCT 09/21/2022 Get US AAA done as US AAA 04/04/2023 was non diagnostic d/t bowel gas US AAA 09/18/2023 : Neg Coronary arteriosclerosis 64459444 I25.10 CAD noted On losartan 50mg daily Dr Hinson IJOn chlorthali done 25mg dailyOn metoprolol ER 50mg dailyDr Bette 02/20/2023 Transient cerebral ischemia 801513809 G45.9 CT Angio: 02/28/2023 : High grade stenosis, R ICA, s/p stent He does see Dr Schumacher his neurologis t, get last OV note S/p hospitaliz ation, does very well now, no residual symptoms at this timeOn ASANot on plavixNot on atorvastat in On rosuvastat in 40mg daily Liver enzy mes level above reference range 470523439 R74.8 ALP 128 03/28/2023 Get labs and US liver Addendum: 12/07/23US liver 12/03/2023 : Hepatic steatosis, triage notified Proteinuria 43355335 R80 .9 US kidney 05/25/2023 : Dr Hinson IJ Pain of ri ght knee joint 0966768665 48150 M25.561 MRI R knee: 06/07/2023 : Dr Lemon erred to Dr Hernandez Male hypogonadism 198659 06 E29.1 Get labs Serum shane min B12 below reference range 120974970 R79.89 Vitamin D deficiency 347 46685 E55.9 Get labs Melendez's esophagus 3029 44254 K22.70 On omeprazole 05/02/2023 : EGD Tonja eds a follow up with GI EGD 01/04/2024 : 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 Addendum: 04/03/2024 :See case, needs to get another EGD, he was notified Chronic pain 42942745 G8 9.29 Referred to pain management 11/29/2023 ,Advised not to take any NSAIDs d/t CAD and CKD issuesOK to refill his methocarba mol to take as needed in very limited quantities , if he needs more see pain management Abdominal pain 92462338 R10.9 Seen in the ER on 09/19/2023 [...] Does well now Acute magi rgic reaction 154724126 T78.40XA Seen in ERTreated with steroids, now is doing well Chronic ki dney disease 335974746 N18.9 On calcitriol On chlorthali done 25mg dailyOn losartan 50mg daily Sees Dr Hinson IJ Pain of bi lateral hip joints 1544749417 0986010 M25.551 M25.552 Marcus ADAMS 01/01/2024 Pneumonia 659931258 J18. 9 S/p d/c from [facility] 05/30/2024 Started on Lantus 10U q hsCBC: 05/30/2024 CMP: 05/30/2024 : BUN 33, Gluc 345 [id number] Duncan Suarez MD [facility] [place] [address] 07/08/2024 16:41:56 07/09/2024 11:52:16 Solitary nodule of lung 986987067 R91.1 Mild chron ic obstructive pulmonary disease 745305444 J44.9 Posterior rhinorrhea 758 73352 R09.82 [id number] Bailey Hernandez MD [facility] [place] [address] [place] [address] 07/16/2024 10:31:14 07/16/2024 11:32:17 Pain of right knee joint 6746373309 27228 M25.973 [id number] Duncan Suarez MD [facility] [address] 08/27/2024 08:36:07 08/27/2024 16:32:18 Solitary nodule of lung 368629841 R91.1 Mild chron ic obstructive pulmonary disease 271748151 J44.9 Posterior rhinorrhea 758 97716 R09.82 Dysphonia 69270697 R49.9 [id number] Caitlin albright MD [facility] [address] [facility], [facility] [address] [place] [address] 10/07/2024 11:44:35 10/07/2024 12:32:19 Screening - NAD 151642909 Z13.9 C-scope: 05/02/2023 , Dr Dickson next [...] 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 OV 06/04/2024 :Dr Suarez 06/04/2024 , keep apts with pulmonary OV 07/08/2024 :On trelegy, renewed 07/08/2024 as he has not had this refilledOn ventolinHa s an apt with Dr Suarez on [...] to see ENT Carotid ar angel stenosis 09192042 I65.29 S/p stent in 03/09On ASANot on plavixDr Bette [facility] 02/21/2024 , next in 6 months Restless legs 95282639 G 25.81 Not on requipNot on lyrica 75mg in am and [address] Riojas well Ex-cigarette smoker 2810 86793 Z87.891 LDCT 09/21/2022 Get US AAA done as US AAA 04/04/2023 was non diagnostic d/t bowel gas US AAA 09/18/2023 : Neg Coronary arteriosclerosis 25889740 I25.10 CAD noted On losartan 50mg daily Dr Sravan Hodges chlorthali done 25mg dailyOn metoprolol ER 50mg dailyDr Bette 02/20/2023 Referred 10/07/2024 Transient cerebral ischemia 124877033 G45.9 CT Angio: 02/28/2023 : High grade stenosis, R ICA, s/p stent He does see Dr Schumacher his neurologis t, get last OV note S/p hospitaliz ation, does very well now, no residual symptoms at this timeOn ASANot on plavixNot on atorvastat in On rosuvastat in 40mg daily Liver enzy mes level above reference range 307826052 R74.8 ALP 128 03/28/2023 Get labs and US liver Addendum: 12/07/23US liver 12/03/2023 : Hepatic steatosis, triage notified Proteinuria 36580231 R80 .9 US kidney 05/25/2023 : Dr Sravan OTERO Pain of ri ght knee joint 3628696615 66312 M25.561 MRI R knee: 06/07/2023 : Dr Lemon erred to Dr Hernandez Male hypogonadism 868679 06 E29.1 Get labs Serum shane min B12 below reference range 588636384 R79.89 Vitamin D deficiency 347 69297 E55.9 Get labs Melendez's esophagus 3029 06469 K22.70 On omeprazole 05/02/2023 : EGD Tonja eds a follow up with GI EGD 01/04/2024 : 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 Addendum: 04/03/2024 :See case, needs to get another EGD, he was notified Chronic pain 85347849 G8 9.29 Referred to pain management 11/29/2023 ,Advised not to take any NSAIDs d/t CAD and CKD issuesOK to refill his methocarba mol to take as needed in very limited quantities , if he needs more see pain management Abdominal pain 79493812 R10.9 Seen in the ER on 09/19/2023 [...] Does well now Acute magi rgic reaction 303980493 T78.40XA Seen in ERTreated with steroids, now is doing well Chronic ki dney disease 256461491 N18.9 On calcitriol On chlorthali done 25mg dailyOn losartan 50mg daily Sees Dr Sravan OTERO Pain of bi lateral hip joints 0966315880 9218523 M25.551 M25.552 Marcus ADAMS 01/01/2024 Dysphonia 70309313 R49.9 Was referred to ENT on 08/27/[address] Suarez's note Pain of le ft shoulder joint 9212592648 0006072 M25.512 Slipped and fell on ice 10 days ago, unable to lift L shoulder, [facility] and refer to ortho [id number] Bailey Hernandez MD [facility] [place] 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 OV 06/04/2024 :Dr Suarez 06/04/2024 , [...] apt on 11/25/2024 Carotid ar angel stenosis 41896732 I65.29 S/p stent in 03/09On ASANot on plavixDr Bette [facility] 02/21/2024 , next in 6 monthsDr Bette [facility] 08/11/2024 , f/u in 6 weeks and was to get US renal artery Restless legs 75658597 G 25.81 Not on requipNot on lyrica 75mg in am and [address] Riojas well Ex-cigarette smoker 2810 71581 Z87.891 LDCT 09/21/2022 Get US AAA done as US AAA 04/04/2023 was non diagnostic d/t bowel gas US AAA 09/18/2023 : Neg Coronary arteriosclerosis 57662460 I25.10 CAD noted On losartan 50mg daily Dr Sravan OTERO, is not taking this as per his historyOn chlorthali done 25mg dailyOn metoprolol ER 50mg daily, refilled 11/20/2024 , was not takingDr Bette 02/20/2023 Referred 10/07/2024 , 11/20/2024 Keep BP Transient cerebral ischemia 307638721 G45.9 CT Angio: 02/28/2023 : High grade stenosis, R ICA, s/p stent He does see Dr Schumacher his neurologis t, get last OV note S/p hospitaliz ation, does very well now, no residual symptoms at this timeOn ASANot on plavixOn atorvastat in renewed 11/20/2024 Not on rosuvastat in 40mg daily Liver enzy mes level above reference range 140575775 R74.8 ALP 128 03/28/2023 Get labs and US liver Addendum: 12/07/23US liver 12/03/2023 : Hepatic steatosis, triage notified Proteinuria 48908974 R80 .9 US kidney 05/25/2023 : Dr Hinson IJ Pain of ri ght knee joint 6065006375 68965 M25.561 MRI R knee: 06/07/2023 : Dr Wilkins Male hypogonadism 493927 06 E29.1 Get labs Serum shane min B12 below reference range 349901612 R79.89 Vitamin D deficiency 347 79387 E55.9 Get labs Melendez's esophagus 3029 07031 K22.70 On omeprazole 05/02/2023 : EGD BarrettsNe eds a follow up with GI EGD 01/04/2024 : 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 Addendum: 04/03/2024 :See case, needs to get another EGD, he was notified Chronic pain 00722471 G8 9.29 Referred to pain management 11/29/2023 ,Advised not to take any NSAIDs d/t CAD and CKD issuesOK to refill his methocarba mol to take as needed in very limited quantities , if he needs more see pain management Abdominal pain 60255694 R10.9 Seen in the ER on 09/19/2023 [...] Does well now Acute magi rgic reaction 671785061 T78.40XA Seen in ERTreated with steroids, now is doing well Chronic ki dney disease 252914421 N18.9 On calcitriol On chlorthali done 25mg dailyOn losartan 50mg daily Sees Dr Sravan OTERO Pain of bi lateral hip joints 1035984797 6939851 M25.551 M25.552 Marcus Walker PA 01/01/2024 Dysphonia 05588519 R49.9 Was referred to ENT on 08/27/[address] Suarez's note Pain of le ft shoulder joint 9527323331 7152057 M25.512 Slipped and fell on ice 10 days ago, unable to lift L shoulder, [facility] and refer to [...] remain a moderate risk for this procedure [id number] Bailey Hernandez MD [facility] [place] [address] [place] [address] 12/03/2024 14:47:58 12/03/2024 16:19:34 Pain of left shoulder joint 9491108634 7424580 M25.512 Health Concerns Section Related Observation LastModified by Organization Detai ls LastModified Time None Recorded Concern Status LastModified by Organization Details LastModified Time None Recorded Advance Directives Directive Y: Patient stated he needs t o update since . Recommended working with an real estate associate attorney. Payers Encounter Date Sequence Insurance Name Policy Number Policy Santana Covered Member ID Santana Member ID Guarantor Name 08/27/2024 1 [employer] [facility] - MEDICARE COMPLETE - CHOICE PLAN 2 (MEDICARE REPLACEMENT REGIONAL PPO) [id number] Navid Sanchezjudi [id number] Navid Rodríguez 10/07/2024 1 [employer] [facility] - MEDICARE COMPLETE - CHOICE PLAN 2 (MEDICARE REPLACEMENT REGIONAL PPO) [id number] Navid Sanchezkey [id number] Navid Rodríguez 10/08/2024 1 [employer] [facility] [facility] - MEDICARE COMPLETE - CHOICE PLAN 2 (MEDICARE REPLACEMENT REGIONAL PPO) [id number] Navid Sanchezjudi [id number] Navid Rodríguez 11/20/2024 1 [employer] [facility] [facility] - MEDICARE COMPLETE - CHOICE PLAN 2 (MEDICARE REPLACEMENT REGIONAL PPO) [id number] Navid Rodríguez [id number] Navid Rodríguez 12/03/2024 1 [employer] [facility] [facility] - MEDICARE COMPLETE - CHOICE PLAN 2 (MEDICARE REPLACEMENT REGIONAL PPO) [id number] Navid Sanchezjudi [id number] Navid Rodríguez Notes Date Note Type Note Provider Name and Address Organization Details Recorded Time 08/27/2024 text/html Primary care/Referring provider: Caitlin Moreno MD CC: I have hoarseness of voice and I could not sing in the prison. Patient is here to go over his mild COPD management. Initial development of shortness of breath: 2011Duration of shortness of breath: 13 yearsCondition of shortness of breath: stableTiming of shortness of breath: morningFrequency: up to 3 times a dayLimits activities: yesAggravating factors: walking, doing yard workAlleviating factors: rest Modified Medical [employer] (mMRC) Dyspnea Scale - Grade 1Grade 0 [...] uoneb since 2016 Spiriva Handihaler once daily 0652-3124 Symbicort HFA 160/4.5 mcg 2 puffs BID [...] yesEdema: no Environmental exposures:Nicotine smoke: 1 ppd 0141-8178 (quit 12 years in between) = 41 [...] chance of dozing. Duncan Suarez MD [address], [facility] [address], [place], [address], [place] [facility] 08/27/2024 09:34:58 10/07/2024 text/html OV 03/28/2023: H ere to establish carePast Hx:HLDCOPDDMIITIARevi ewed social family and surgical historyHere to discuss above, admitted to [facility] on 02/28/2023 for TIA with L arm [...] for UTI, seen in the ER at [facility] 09/24/2023, treated with antibiotic and also did [...] OV 05/26/2024: Here post hosp, d/c from [facility] 05/14/2024 for SOB, today very SOB and has ongoing cough, he is extremely fatigued, c/o wheezing also, states that he is worse since his d/c from [facility] on 05/14/2024 OV 06/04/2024: Here for his [...] did see Dr Daniela Moreno MD [address] [facility], [facility] [address], [place], [address], [facility] [employer] 10/10/2024 11:49:03 11/20/2024 text/html OV 03/28/2023: H ere to establish carePast Hx:HLDCOPDDMIITIARevi ewed social family and surgical historyHere to discuss above, admitted to [facility] on 02/28/2023 for TIA with L arm [...] for UTI, seen in the ER at [facility] 09/24/2023, treated with antibiotic and also did [...] OV 05/26/2024: Here post hosp, d/c from [facility] 05/14/2024 for SOB, today very SOB and has ongoing cough, he is extremely fatigued, c/o wheezing also, states that he is worse since his d/c from [facility] on 05/14/2024 OV 06/04/2024: Here for his [...] still has shoulder pain Caitlin Moreno MD [address] [place] [address], [facility] [address], [place], [address], [facility] 01/06/2025 14:51:30
--- OUTSIDE RECORDS SUMMARY | 2025-02-04 15:09 | XMS_ITS ---
Author Organization [facility] Address [address] [address] [place] [address] Care Team Providers Care Boot Turner Name Role Phone HinsonHemalathaOwen Unavailable [phone] MEDICATIONS Medication SIG (Take, Route, Frequency, Duration) Notes Start Date End Date Status Losartan Potassium 50 MG 1 tablet Orally Once a day for 90 05/30/2023 Active SOCIAL HISTORY Sex Assigned At : Social History Observation Description Sex Assigned At Male Encounters Encounter Location Date Provider Diagnosis [place] [address] [facility] [address] [place] [address] 08/01/2024 Owen Hinson Chronic kidney disease, stage [...] * CRISS CALERODOB: [birth year] (74 yo M)Acc No.[id number]:08/01/2024 Progress Notes Patient: CRISS CALERO Provider: MD JOSÉ MIGUEL, F.A.C.P, F.A.S.N. :1950 Age:74 Y Sex:Male Date:08/01/2024 Address:[address] [place] [address] Subjective: * Chief Complaints: * * Medical [...] Treatment: * Billing Information: * Visit Code: 05659 Office Visit, Est Pt., Level 4. * Procedure Codes: * Sign off status: Pending * Provider: MD JOSÉ MIGUEL, F.A.C.P, F.A.S.N. Date: 08/01/2024
--- OUTSIDE RECORDS SUMMARY | 2025-02-04 15:09 | XMS_ITS ---
Author Organization [facility] Address [address] [place] [address] Care Team Providers Care Net Mobile Developer Name Role Phone SravanHemalathaOwen Unavailable [phone] MEDICATIONS Medication SIG (Take, Route, Frequency, Duration) Notes Start Date End Date Status Calcitriol 0.25 MCG 1 capsule Orally corrine ry other day for 90 05/30/2023 02/24/2024 Active Losartan Potassium 50 MG 1 tablet Orally Once a day for 90 05/30/2023 Active Ergocalciferol 1.25 MG (98545 UT) 1 capsule Orally Once a week for 90 day(s) 08/29/2023 05/25/2024 Active SOCIAL HISTORY Sex Assigned At : Social History Observation Description Sex Assigned At Male Encounters Encounter Location Date Provider Diagnosis [facility] [address] [facility] [address] [place] [address] 01/23/2024 Owen Hinson Chronic kidney disease, stage [...] * CRISS CALERODOB: [birth year] (74 yo M)Acc No.[id number]:01/23/2024 Progress Notes Patient: CRISS CALERO Provider: MD JOSÉ MIGUEL, Fabian, F.A.S.N. :1950 Age:73 Y Sex:Male Date:01/23/2024 Address:[address] [place] [address] Subjective: * Chief Complaints: * * Medical History: * Medications: Taking Losartan Potassium 50 MG Tablet 1 tablet Orally Once a day , Taking Calcitriol 0.25 MCG Capsule 1 capsule Orally every other day , stop date 02/24/2024, Taking Ergocalciferol 1.25 MG (22582 UT) Capsule 1 capsule Orally Once a week , stop date 05/25/2024 Objective: Assessment: * Assessment: 1. Chronic kidney disease, stage 2 (mild) - N18.2 2. Other proteinuria - R80.8 3. Type 2 diabetes mellitus with hyperglycemia - E11.65 4. Chronic obstructive pulmonary disease with (acute) exacerbation - J44.1 5. Essential hypertension - I10 Plan: * Treatment: * Billing Information: * Visit Code: 19172 Office Visit, Est Pt., Level 4. * Procedure Codes: * Sign off status: Pending * Provider: MD JOSÉ MIGUEL, Fabian, F.A.S.N. Date: 01/23/2024
--- OUTSIDE RECORDS SUMMARY | 2025-02-04 15:09 | XMS_ITS | Patient Health Record ---
Author Organization [facility] Address [address] [address] [place] [address] Care Team Providers Care Cras Name Role Phone Owen Hinson Unavailable [phone] REASON FOR REFERRAL No Information MEDICATIONS Medication [...] Hyperglycemia due to type 2 diabetes mellitus (283752593922533 ) Problem Chronic obstructive pulmonary disease with (acute) exacerbation (J44.1) Active confirmed Acute exacerbation of chronic obstructive airways disease (451284139) Problem Chronic kidney disease, stage 2 (mild) (N18.2) Active confirmed Chronic kidne y disease stage 2 (834013560) Problem Other proteinuria (R80.8) Active confirmed Proteinuria (23103026) Problem Essential hypertension (I10) Active confirmed Essential hypertension (31820669) Encounters Encounter Location Date Provider Diagnosis [facility] [address] [address] 08/01/2024 Owen Hinson Chronic kidney disease, stage 2 (mild) N18.2 ; Other proteinuria R80.8 ; Type 2 diabetes mellitus with hyperglycemia E11.65 ; Chronic obstructive pulmonary disease with (acute) exacerbation J44.1 and Essential hypertension I10 [facility] [address] [address] 08/01/2024 Owen Hinson ASSESSMENTS Encounter Date Diagnosis [...]
--- OUTSIDE RECORDS SUMMARY | 2025-02-04 15:09 | XMS_ITS | Clinical Summary ---
Author Organization [facility] Address [address] [place] [address] Care Team Providers Care Fish Worm Grower Name Role Phone Unavailable Primary Care Provider Unavailabl e Source Comments [facility],non-owned Affiliates and Associated Physician Practices is amultiple site organization consisting of ambulatory clinics and hospital sitesin [place], [place] and [place]. This disclosure is being madepursuant to the Care Everywhere program and may not contain all information available regarding this patient. Last updated 18.[facility] Allergies No known active allergies Medications * [...] Date Recorded PHQ2 TOTAL SCORE 0 03/07/2023 [facility] - Occupational Stress [...] this topic Medical Devices Implanted Type Area Wildlife Refuge Specialist Device Identifier Shelf Expiration Date Model / Serial / Lot Stent Enroute Uber Flx 7mm .065in 40mm Implanted:Qty : 1 on 03/05/2023 by Betty Crane DO at [facility] Stent - Vascular Right: Arterial [employer] [facility] 04/16/2025 SR-0740-[id number] S / / [id number] Description:IMPLANTED RIGHT CAROTID ARTERY Insurance [facility] MANAGED MEDICARE ADV Advance Directives * Full Code (Latest Code Status on File) Date Activated Date Inactivated Comments 03/03/2023 5:15 AM 03/08/2023 8:02 PM
[2025-02-04 15:49] VITALS: BP 113/65; PULSE 73; RESP 17; TEMP 37; O2SAT 96
--- OUTSIDE RECORDS SUMMARY | 2025-02-04 17:19 | XMS_ITS | CONTINUITY OF CARE DOCUMENT ---
Author Name cruz kitoctavio Address Unknown Organization [facility] Address [address] [facility] [address] [place] [address] Phone [phone] Care Team Providers Care Rip Tailer Name Role Phone Derrick Amos MD Unavailable CAITLIN RAMÍREZ MD Unavailable CAITLIN RAMÍREZ MD Unavailable [phone] PROBLEMS Condition Status Date Provider Notes Preop [...] In-person encounter Office Visit Steven Shaw NP [facility] - In-person encounter Office Visit Derrick Amos MD [facility] - In-person encounter Office Visit Derrick Amos MD [facility] Cardiology examination - In-person encounter Office Visit Derrick Amos MD [facility] TOBACCO ABUSE-QUIT - In-person encounter Office Visit Derrick Amos MD [facility] - In-person encounter Office Visit Derrick Amos MD [facility] - In-person encounter Office Visit Derrick Amos MD [facility] - In-person encounter Office Visit Derrick Amos MD [facility] CVA - In-person encounter Office Visit Derrick Amos MD [facility] - In-person encounter Office Visit Marshal Milner MD [facility] Preop examHypertensionDyslipidemiaDiabetes mellitusCOPDShortness of breathTOBACCO ABUSE-QUITArrhythmia VITAL SIGNS Date Observation Value Provider Body Mass Index (Ratio) 22.31 kg/m2 Arnie Shaw NP blood pressure, diastolic 101 mm[Hg] emerald Lim blood pressure, systolic 179 mm[Hg] Danna laura Lim oxygen saturation, oximetry 95 % [facility] pulse [facility] 71 /min [facility] respiratory rate E&M 12 /min [facility] weight E&M 130 [lb_av] [facility] height E&M 64 [in_i] [facility] blood pressure, cuff size regular [...] morrison Aleman oxygen saturation, oximetry 94 % [facility] pulse rate 87 /min Kmaron Aleman [...] Amos MD blood pressure, cuff size regular [facility] blood pressure, diastolic 93 mm[Hg] Ja rr blood pressure, systolic 169 mm[Hg] Jar ret pulse rate 63 /min Lucas oxygen saturation, oximetry 96 % respiratory rate E&M 16 /min Lucas weight E&M 137 [lb_av] Lucas height E&M 64 [in_i] Lucas Body Mass Index (Ratio) 23.34 kg/m2 Ricky Albright blood pressure, cuff size regular [facility] blood pressure, diastolic 95 mm[Hg] [...] pressure, diastolic, right arm 80 m m[Hg] Mangum blood pressure, systolic, right arm 130 m m[Hg] blood pressure, diastolic 80 mm[Hg] Ki blood pressure, systolic 130 mm[Hg] Yane cuevas Brody oxygen saturation, oximetry 97 % respiratory rate E&M 16 /min pulse rate 64 /min [facility] weight E&M 143 [lb_av] height E&M 64 [in_i] blood pressure, resting Yes Kill n Brody ALLERGIES No Known Drug Allergies HISTORY OF MEDICATION USE Medication Status Instructions Dates Provider Indications [facility] mentviridiana chlorthalidone 25 mg tablet active TAKE [...] currently 1/2 Angel Quarles cigarette use yes Mangum Ronn number of grandchildren Marshal Milner MD [...] Payer name Policy type / Coverage type Hazel Green red democrat ID AARP MEDICARE ADVANTAGE ([facility] COMPLETE PPO) Other [id number] ADVANCE DIRECTIVES Name Date DISCUSSED - NO DECISION MADE TREATMENT PLAN Date Name Performer [id number],C,Per pcp Derrick Amos MD [id number],C,S tent to carotid. he should be on astatin but I am not sure. Derrick Amos MD [id number],C,N ot sure what he is on but he will see his PCP for a list of current meds B P today: 155/90 P rior BP: 176/100 (04/12/2023) Derrick Amos MD [id number],C,l ow risk for colonoscopy. BP is not well controlled, will have him come back in a week for BP check Derrick Amos MD [id number],C,n ot well controlled W ill add olmesartan [...] be provided after her echo is read. Steevn Shaw NP Cardiology:May under go his surgery [...]
--- OUTSIDE RECORDS SUMMARY | 2025-02-04 17:19 | XMS_ITS | Clinical Summary ---
Author Organization [facility] [employer] Address [address] [place] [address] Care Team Providers Care Classified Ad Clerk Name Role Phone Unavailable Primary Care Provider Unavailabl e Source Comments [facility] [employer] [facility] [employer],non-owned Affiliates and Associated Physician Practices is amultiple site organization consisting of ambulatory clinics and hospital sitesin [place], [place], [place] and [place]. This disclosure is being madepursuant to the Care Everywhere program and may not contain all information available regarding this patient. Last updated 18.[facility] Allergies No known active allergies Medications * [...] place to sleep or slept in a fpc (including now)? No 03/03/2023 Sex and Gender [...] this topic Medical Devices Implanted Type Area 3D Technologist Device Identifier Shelf Expiration Date Model / Serial / Lot Stent Enroute Uber Flx 7mm .065in 40mm Implanted:Qty : 1 on 03/05/2023 by Betty Crane DO at [facility] Stent - Vascular Right: Arterial [facility] [facility] 04/16/2025 SR-0740-C S / / [id number] Description:IMPLANTED RIGHT CAROTID ARTERY Insurance [facility] MANAGED MEDICARE ADV Advance Directives * Full Code (Latest Code Status on File) Date Activated Date Inactivated Comments 03/03/2023 5:15 AM 03/08/2023 8:02 PM
--- OUTSIDE RECORDS SUMMARY | 2025-02-04 17:19 | XMS_ITS | Clinical Summary ---
Author Organization [facility] Address [address] [facility] [address] [address] Care Team Providers Care Paranormal Investigator Name Role Phone Naila Moreno MD Primary Care Provider [phone] Social History Tobacco Use Types Packs/Day Years [...] patient's age to complete this topic Insurance [facility] Medicare Care Teams Paranormal Investigator Relationship Specialty Start Date End Date Naila Moreno MD [address], [address] [place] [address] PCP - General Internal Medicine 11/30/23
--- NOTE | 2025-02-04 17:26 | PC.NURSE ---
Pt. has an abrasions to bilateral knees and R. elbow. No active bleeding. Dried blood around the abrasions.
[2025-02-04] MEDS: TETANUS,DIPHTHERIA,AC PERTUSSIS ADULT (0.5 ML) BOOSTRIX IM (17:27)
[2025-02-04] MEDS: ACETAMINOPHEN 325 MG TABLET 650 MG PO (17:27)
[2025-02-04 17:53] LABS: Glucose Point of Care 248 mg/dl (65-105)
--- NOTE | 2025-02-04 18:03 | ED.GENADULT ---
HPI - General Adult General Chief complaint: Fall Stated complaint: TRIP AND FALL,PAIN ALL OVER Time Seen by Provider: 02/04/25 16:44 History of Present Illness HPI narrative: Patient is a 74-year-old male who presents ER after trip and fall at home. Fell forward striking his face on the ground. No LOC. Mild headache. Has achiness the left shoulder. Abrasions to the knees bilaterally as well as left arm. Last tetanus shot 8-10 years ago. Related Data Home Medications ?Medication ?Instructions ?Recorded ?Confirmed ?Last Taken ?Type calcitriol 0.25 mcg capsule 0.25 mcg PO EVERY OTHER DAY 05/26/24 02/03/25 01/24/25 History empagliflozin 10 mg tablet 10 mg PO DAILY 05/26/24 02/03/25 05/25/24 History (Jardiance) ergocalciferol (vitamin D2) 1,250 1,250 mcg PO WEEKLY 05/26/24 02/03/25 01/19/25 History mcg (50,000 unit) capsule metformin 500 mg tablet,extended 500 mg PO BID 05/26/24 02/03/25 01/25/25 History release 24 hr methocarbamol 750 mg tablet 750 mg PO TID PRN muscle spasms 05/26/24 02/03/25 01/25/25 History atorvastatin 40 mg tablet 40 mg PO DAILY 01/26/25 02/03/25 01/25/25 History aspirin 81 mg chewable tablet 81 mg PO DAILY 02/03/25 02/03/25 Unknown History celecoxib 200 mg capsule 200 mg PO DAILY 02/03/25 02/03/25 Unknown History chlorthalidone 25 mg tablet 25 mg PO DAILY 02/03/25 02/03/25 Unknown History insulin NPH isoph U-100 human 100 20 unit subcut .AM 02/03/25 02/03/25 Unknown History unit/mL (3 mL) subcutaneous pen (Humulin N NPH U-100 Insulin KwikPen) losartan 50 mg tablet 50 mg PO BID 02/03/25 02/03/25 Unknown History metoprolol succinate 50 mg 50 mg PO DAILY 02/03/25 02/03/25 Unknown History tablet,extended release 24 hr Allergies Allergy/AdvReac Type Severity Reaction Status Date / Time No Known Allergies Allergy Verified 02/04/25 15:05 Review of Systems Review of Systems: All systems reviewed & are unremarkable except as noted in HPI and below Constitutional: Constitutional: Reports no additional constitutional complaints Cardiovascular: Cardiovascular: Reports no additional cardiovascular complaints Respiratory: Respiratory: Reports no additional respiratory complaints Musculoskeletal: Musculoskeletal: Reports no additional musculoskeletal complaints Neurologic: Reports system reviewed and no additional complaints, except as documented PMFSH Past Medical History Medical History Diabetes COPD (chronic obstructive pulmonary disease) Hypertension Hyperlipidemia COPD (chronic obstructive pulmonary disease) Diabetes Hypertension Surgical History Surgical History H/O neck surgery Previous back surgery History of hip surgery No pertinent past surgical history Family History Family History Mother Acute myocardial infarction Congestive heart failure Chronic obstructive pulmonary disease Hypertension Asthma Sibling History of blood clots Colon cancer Grandparent Cerebrovascular accident Social History Social History Smoking packs per day: 1 Smoking cigarettes per day: 20.0 Years smoked: 50 Smoking pack-years: 50.00 Smoking status: Former smoker Tobacco type: cigarettes Smoking end date: 02/15/23 Alcohol intake: former Alcohol use details: not drank in 15 yrs, Heavy drinker before Substance use: current Substance use type: painkillers Other substance usage details: Pain killers for shoulder injury Do You Feel Safe in your Home?: Yes Lack of Transportation: No Lack of Food: Sometimes True Current Housing: I Have Housing Concerned About Future Housing: No Difficulty Paying Gas/Electric Bills: YES Difficulty Paying for Meds: YES Currently Unemployed: No Education: High School Diploma/GED Difficulty w/ Childcare or Family Care: No Living arrangements: alone Occupation/Education: retired Spiritual care concerns: No Exam Narrative: GENERAL: Well-appearing, well-nourished, and in no acute distress. HEAD: Normocephalic, atraumatic. ENT: Mucous membranes moist. NECK: Supple. No midline tenderness. Mild left paraspinal tenderness moving into the trapezius musculature. CHEST: Clear to auscultation. No respiratory distress. HEART: Regular rate and rhythm. Normal peripheral pulses. EXTREMITIES: Normal range of motion. No edema. SKIN: Warm, dry, no rash. Abrasions of the knees some left forearm. NEURO: Alert and oriented x3. PSYCH: Normal mood and affect. Course Course Emergency Course: Patient resting comfortably. Informed of results. Has a blastic lesion on his CT scan. I have contacted his PCPs office who would like him to call in the morning for close follow-up. Patient verbalized understanding of this plan. Tetanus updated. Vital Signs Vital signs: Vital Signs Temperature 98.6 F 02/04/25 15:49 Pulse Rate 73 02/04/25 15:49 Respiratory Rate 17 02/04/25 15:49 Blood Pressure 113/65 02/04/25 15:49 Pulse Oximetry 96 02/04/25 15:49 Oxygen Delivery Room Air 02/04/25 15:49 Temperature 98.6 F 02/04/25 15:49 Pulse Rate 73 02/04/25 15:49 Respiratory Rate 17 02/04/25 15:49 Blood Pressure 113/65 02/04/25 15:49 Pulse Oximetry 96 02/04/25 15:49 Oxygen Delivery Room Air 02/04/25 15:49 Medical Decision Making Vital Signs Vital Signs: Vital Signs Temperature 98.6 F 02/04/25 15:49 Pulse Rate 73 02/04/25 15:49 Respiratory Rate 17 02/04/25 15:49 Blood Pressure 113/65 02/04/25 15:49 Pulse Oximetry 96 02/04/25 15:49 Oxygen Delivery Room Air 02/04/25 15:49 Temperature 98.6 F 02/04/25 15:49 Pulse Rate 73 02/04/25 15:49 Respiratory Rate 17 02/04/25 15:49 Blood Pressure 113/65 02/04/25 15:49 Pulse Oximetry 96 02/04/25 15:49 Oxygen Delivery Room Air 02/04/25 15:49 Lab Data Labs: Lab Results 02/04/25 Range/Units 17:50 POC Capillary Glucose 248 H (65-105) mg/dl Discharge Plan Discharge Clinical Impression: Abrasion, Abnormal bone radiograph Patient Disposition: Home Condition: Stable Additional Instructions: You have a bone lesion at C4 that needs to be evaluated further to make sure it is not cancerous. Follow-up with your primary care doctor. He would like you to call in the morning. Patient Language: Albanian Prescriptions: No Action oxycodone 5 mg tablet 2.5 mg PO Q4H PRN (Reason: pain) Qty: 20 0RF lansoprazole 30 mg capsule,delayed release(DR/EC) 30 mg PO DAILY Qty: 90 3RF metoprolol succinate 50 mg tablet extended release 24 hr 50 mg PO DAILY chlorthalidone 25 mg tablet 25 mg PO DAILY losartan 50 mg tablet 50 mg PO BID celecoxib 200 mg capsule 200 mg PO DAILY Humulin N NPH Insulin KwikPen 100 unit/mL (3 mL) insulin pen 20 unit SUBCUT .AM aspirin 81 mg tablet,chewable 81 mg PO DAILY methocarbamol 750 mg tablet 750 mg PO TID PRN (Reason: muscle spasms) ergocalciferol (vitamin D2) 1,250 mcg (50,000 unit) capsule 1,250 mcg PO WEEKLY Rx Instructions: sunday administration metformin 500 mg tablet extended release 24 hr 500 mg PO BID calcitriol 0.25 mcg capsule 0.25 mcg PO EVERY OTHER DAY Jardiance 10 mg tablet 10 mg PO DAILY atorvastatin 40 mg tablet 40 mg PO DAILY amoxicillin-pot clavulanate 875-125 mg tablet 1 tablet PO Q12H Qty: 2 0RF Trelegy Ellipta 200-62.5-25 mcg Blister With Device 1 inh inhalation DAILYRT Qty: 1 2RF (DME) pen needle, diabetic [Candelaria 2nd Gen Pen Needle] 32 gauge x 5/32 needle See Rx Instructions .Route Qty: 50 0RF Rx Instructions: As directed alcohol swabs [Alcohol Pads] Pads, Medicated 1 pad topical .3 times a day Qty: 200 0RF albuterol sulfate 2.5 mg /3 mL (0.083 %) solution for nebulization 2.5 mg inhalation Q4H PRN (Reason: shortness of breath or wheezing) Qty: 75 2RF albuterol sulfate [Ventolin HFA] 90 mcg/actuation HFA aerosol inhaler 2 puff INHALATION Q6H PRN (Reason: Shortness Of Breath Or Wheezing) Qty: 1 0RF glucagon 3 mg/actuation spray,non-aerosol 3 mg intranasal ONCE Qty: 1 0RF Rx Instructions: as a single dose For low blood sugars if unable to eat or drink (DME) blood-glucose meter [Blood Glucose Monitoring] Kit See Rx Instructions .Route Qty: 1 1RF Rx Instructions: As directed. Blood-glucose meter as covered by insurance (DME) lancets [Comfort EZ Lancets] 28 gauge misc See Rx Instructions .Route Qty: 100 11RF Rx Instructions: As directed--lancets and test strips per insurance. For checking blood sugar 4 times a day (before meals and bedtime) (DME) OneTouch Verio test strips Strip See Rx Instructions .Route Qty: 100 11RF Rx Instructions: As directed. For checking blood sugars 4 times a day (before meals and bedtime) Test strips per insurance Follow-up/Referrals: Tiffanie,MD Naila [Primary Care Provider] - 2 Days
[2025-02-04 18:59] VITALS: BP 163/92; PULSE 60; RESP 16; TEMP 36.2; O2SAT 99
== END 2025-02-04 19:01 | disposition home or self-care (01) ==
PROVIDERS: Emergency Provider Emergency Medicine; PCP Internal Medicine
DX: S80.212A Abrasion, left knee, initial encounter (principal); S80.211A Abrasion, right knee, initial encounter; S50.812A Abrasion of left forearm, initial encounter; M89.9 Disorder of bone, unspecified; Z23 Encounter for immunization; I10 Essential (primary) hypertension; J44.9 Chronic obstructive pulmonary disease, unspecified; E11.9 Type 2 diabetes mellitus without complications; E78.5 Hyperlipidemia, unspecified; Z87.891 Personal history of nicotine dependence; Z79.899 Other long term (current) drug therapy; Z79.4 Long term (current) use of insulin; Z79.82 Long term (current) use of aspirin; Z79.84 Long term (current) use of oral hypoglycemic drugs; W01.0XXA Fall on same level from slipping, tripping and stumbling without subsequent striking against object, initial encounter
CPT/HCPCS: 70450; 72125; 73030; 82948; 90471; 90715; 99284; A9270

== ENCOUNTER 2025-02-06 10:32 | Outpatient (CLI) | payer MEDICARE, SELFPAY ==
--- OUTSIDE RECORDS SUMMARY | 2025-02-06 10:54 | XMS_ITS | Clinical Summary ---
Author Organization [facility] Facility Address [address] [facility] [address] [address] Care Team Providers Care Psychiatric Tech Name Role Phone Naila Moreno MD Primary Care Provider [phone] Social History Tobacco Use Types Packs/Day Years [...] patient's age to complete this topic Insurance [place] [address] Care Teams Psychiatric Tech Relationship Specialty Start Date End Date Naila Moreno MD [address], [address] [place] [address] PCP - General Internal Medicine 11/30/23
--- OUTSIDE RECORDS SUMMARY | 2025-02-06 10:55 | XMS_ITS ---
Author Organization [facility] Address [address] [place] [address] Care Team Providers Care Straddle Bug Name Role Phone Sravan Owen Angie [phone] MEDICATIONS Medication SIG (Take, Route, Fr equency, Duration) Notes Start Date End Date Status Calcitriol 0.25 MCG 1 capsule Orally Onc e a day for 90 day(s) 08/01/2024 04/28/2025 Active SOCIAL HISTORY Sex Assigned At : Social History Observation Description Sex Assigned At Male Encounters Encounter Location Date Provider Diagnosis [facility] [address] [facility] [address] [place] [address] 08/01/2024 Owen Hinson PLAN OF TREATMENT Medication Medication Name Sig Start Date Stop Date Notes Calcitriol 0.25 MCG 1 capsule Orally Onc e a day for 90 day(s) 08/01/2024 04/28/2025 Progress Notes * MAJOADOLFO CRISSDOB: [birth year] (74 yo M)Acc No.[id number]:08/01/2024 Patient: CRISS CALERO :1950 Age:74 Y Sex:Male Address:[address] [place] [address] * Refills Start Calcitriol Capsule, 0.25 MCG, Orally, 90 Capsule, 1 capsule, Once a day, 90 day(s), Refills=2 * true * Date:
--- OUTSIDE RECORDS SUMMARY | 2025-02-06 10:55 | XMS_ITS | CONTINUITY OF CARE DOCUMENT ---
Author Name cruz kitoctavio Address Unknown Organization [facility] Address [address] [facility] [address] [place] [address] Phone [phone] Care Team Providers Care Drag Seiner Name Role Phone Derrick Amos MD Unavailable CAITLIN RAMÍREZ MD Unavailable [phone] CAITLIN RAMÍREZ MD Unavailable [phone] PROBLEMS Condition Status Date Provider Notes Preop exam active Marshal Milner MD Hypertension active Marshal Milner MD Dyslipidemia active Marshal Milner MD Diabetes mellitus active Marshal Milner MD COPD active Marshal Milner MD Shortness of breath active Marhsal Milner MD TOBACCO ABUSE-QUIT active Derrick Amos MD Arrhythmia active Marshal Milner MD CVA active Derrick Amos MD Cardiology examination active Derrick Amos MD ENCOUNTERS Date Type Provider Location Encounter Diag nosis - In-person encounter Office Visit Steven Shaw NP [facility] - In-person encounter Office Visit Derrick Amos MD [facility] - In-person encounter Office Visit Derrick Amos MD [facility] Cardiology examination - In-person encounter Office Visit Derrick Amos MD [facility] TOBACCO ABUSE-QUIT - In-person encounter Office Visit Derrick Amos MD [facility] - In-person encounter Office Visit Derrick Amos MD [facility] - In-person encounter Office Visit Derrick Amos MD [facility] - In-person encounter Office Visit Derrick Amos MD [facility] CVA - In-person encounter Office Visit Derrick Amos MD [facility] - In-person encounter Office Visit Marshal Milner MD [facility] Preop examHypertensionDyslipidemiaDiabetes mellitusCOPDShortness of breathTOBACCO ABUSE-QUITArrhythmia VITAL SIGNS Date Observation Value Provider Body Mass Index (Ratio) 22.31 kg/m2 Arnie Shaw NP blood pressure, diastolic 101 mm[Hg] emerald Lim blood pressure, systolic 179 mm[Hg] Danna laura Lim oxygen saturation, oximetry 95 % [facility] 71 [facility]min [facility] respiratory rate E&M 12 /min [facility] weight E&M 130 [lb_av] [facility] height E&M 64 [in_i] [facility] blood pressure, cuff size regular An [...] morrison Aleman oxygen saturation, oximetry 94 % [facility] pulse rate 87 /min Kmaron Aleman [...] Body Mass Index (Ratio) 23.51 kg/m2 Portia Aoms MD blood pressure, cuff size regular [facility] blood pressure, diastolic 93 mm[Hg] Ja rr blood pressure, systolic 169 mm[Hg] Jar ret pulse rate 63 /min Lucas oxygen saturation, oximetry 96 % respiratory rate E&M 16 /min Lucas weight E&M 137 [lb_av] Lucas height E&M 64 [in_i] Lucas Body Mass Index (Ratio) 23.34 kg/m2 Ricky Albright blood pressure, cuff size regular [facility] blood pressure, diastolic 95 mm[Hg] Ja blood pressure, systolic 176 mm[Hg] [facility] pulse rate 58 /min Lucas respiratory [...] pressure, diastolic, right arm 80 m m[Hg] [place] blood pressure, systolic, right arm 130 m m[Hg] blood pressure, diastolic 80 mm[Hg] Ki blood pressure, systolic 130 mm[Hg] Yane cuevas Brody oxygen saturation, oximetry 97 % respiratory rate E&M 16 /min pulse rate 64 /[facility] E&M 143 [lb_av] height E&M 64 [in_i] blood pressure, resting Yes Kill n Brody ALLERGIES No Known Drug Allergies HISTORY OF MEDICATION USE Medication Status Instructions Dates Provider Indications [facility] mentviridiana chlorthalidone 25 mg tablet active [...] Amos MD smoking, year quit 6 months eDrrick haney MD number of years as a [...] currently 1/2 Angel Quarles cigarette use yes [place] number of grandchildren Marshal Milner MD [...] Payer name Policy type / Coverage type [place] red democrat ID AARP MEDICARE ADVANTAGE ([facility] COMPLETE PPO) Other [id number] ADVANCE DIRECTIVES Name Date DISCUSSED - NO DECISION MADE TREATMENT PLAN Date Name Performer [id number],C,Per pcp Derrick Amos MD [id number],C,S tent to carotid. he should be on astatin but I am not sure. Derrick Amos MD [id number],C,N ot sure what he is on but he will see his PCP for a list of current meds B P today: 155/90 P rior BP: 176/100 (04/12/2023) Derrick Amos MD [id number],C,l ow risk for colonoscopy. BP is not well controlled, will have him come back in a week for BP check Derrick Amos MD [id number],C,n ot well controlled W ill add olmesartan [...] andidate for hip surgery. Denies hx of DE or chest pain. He reports many years [...]
--- OUTSIDE RECORDS SUMMARY | 2025-02-06 10:55 | XMS_ITS | Data Portability ---
Author Organization [facility] [employer], Main Office Address [address] [place] [address] Care Team Providers Care High Pressure Cleaner Name Role Phone NAILA MORENO Primary Care Provider NAILA MORENO Referring Provider MIGUEL A BALDERRAMA [employer] Sales Representative DUNCAN SUAREZ Human Relations Manager MIGEL AMOS Telephone Clerk Telegraph Office SUBHA FLETCHER General Surgeon [phone] BAILEY HERNANDEZ Orthopedic Surgeon [phone] Assessment Encounter Date Assessment Date Assessment LastModified by Organization Details LastModified Time 08/27/2024 08/27/2024 Assessment: Dysphonia Postnasal drip Nicotine smoke: 1 ppd 1415-1479 (quit 12 years in between) = 41 pack years Mild COPD RUL nodule Hypertension Plan: The following were reviewed and explained to the patient: Chest CT 09/21/22 7 mm RUL nodule Chest CT 03/07/24 no acute abnormality Chest CT 05/13/24 5 mm RUL nodule [facility] hospitalization 05/13/24 - 05/14/24 discharged on azithromycin, prednisone, Trelegy and albuterol inhalers [facility] hospitalization 05/26/24 - 05/30/24 Lab data 06/04/24 [...] positive Maribel. Positive Neer and Brandon. Positive [place]'s. X-rays of the shoulder were reviewed, demonstrating [...] Positive Maribel. Positive Neer and [place]. Positive [place]'s. Motor: 5/5 strength. Limited by pain Sensation: [...] one, free + total, serum 2024 025 [email or web address] [facility] Outpatient Lab, [address] [place] [address], [address], 11/20/2024 12:46:04 lipid panel, serum 2024 025 [email or web address] Not available 11/20/2024 12:46:03 CMP, serum or plasma 2024 025 PAZ Not available 12/16/2024 20:02:46 CBC w/ auto diff 2024 025 PAZ Not available 12/16/2024 20:02:46 TSH + free T4, serum 2024 025 [email or web address] Not available 11/20/2024 12:46:04 vitamin D, 25-hydrox y, total, serum 2024 025 [email or web address] [facility], [address] [place], [address], 11/20/2024 12:46:04 microalbu min, urine 2024 025 [email or web address] Not available 11/20/2024 12:46:02 glycohemo globin, total, blood 2024 025 Not available 11/20/2024 12:46:02 vitamin B12 + folate, serum or blood 2024 025 [email or web address] [facility], [address] [place], [address], 11/20/2024 12:46:04 testoster one, free + total, serum 2024 025 [email or web address] [facility], [address] [place], [address], 10/07/2024 12:29:42 lipid panel, serum 2024 025 [email or web address] Not available 10/07/2024 12:29:40 CMP, serum or plasma 2024 025 [email or web address] Not available 10/07/2024 12:29:41 CBC w/ auto diff 2024 025 [email or web address] Not available 10/07/2024 12:29:41 TSH + free T4, serum 2024 025 Not available 10/07/2024 12:29:41 vitamin D, 25-hydrox y, total, serum 2024 025 [email or web address] [facility], [address] [place], [address], 10/07/2024 12:29:42 microalbu min, urine 2024 025 [email or web address] Not available 10/07/2024 12:29:39 glycohemo globin, total, blood 2024 025 [email or web address] Not available 10/07/2024 12:29:40 vitamin B12 + folate, serum or blood 2024 025 [email or web address] [facility], [address] [place], [address], 10/07/2024 12:29:42 gram stain, sputum [email or web address] [place] [address] - Outpatient Lab, [address] [place], [address], 09/04/2024 15:26:10 culture, sputum 2023 024 [facility], [address] [place], [address], 08/28/2024 09:23:[address] referral - Please call patient to schedule an appointme nt. Thank you. 2024 025 NEO Hare MD, [address] [facility], [address], [address], 11/27/2024 11:20:42 nephrolog ist referral - Please call patient to schedule an appointme nt. Thank you. 2024 025 NEO Hinson MD (Nephrology, [address], [address], [place], [address], 11/27/2024 16:30:50 vascular surgeon referral - Please call patient to schedule an appointme nt. Thank you. 2024 025 [place], [address] [address], [address], [place], [address], 11/27/2024 10:45:31 orthopedi c surgeon referral - Please call patient to schedule an appointme nt. Thank you. 2024 025 NEO Wilkins, [address], [address], [place], [address], 11/27/2024 10:40:31 gastroent erologist referral - Please call patient to schedule an appointme nt. Thank you. 2024 025 [facility], [address], [address], [place], [address], 12/01/2024 10:10:38 podiatris t referral - Please call patient to schedule an appointme nt. Thank you. 2024 025 [email or web address] Miguel A Joanna DPM, [address], [address], [place], [address], 12/04/2024 10:59:02 cardiolog ist referral - Please call patient to schedule an appointme nt. Thank you. 2024 025 [email or web address] [place], [address], [address], [place], [address], 12/25/2024 09:41:37 gastroent erologist referral - Please call patient to schedule an appointme nt. Thank you. 2024 025 [facility], [address], [address], [place], [address], 12/01/2024 10:10:37 physical therapist referral - Please schedule pt for L shoulder. Thanks 2024 025 [email or web address] [facility] [place], [address] [facility], [place], [address], 10/12/2024 20:27:32 nephrolog ist referral - Please call patient to schedule an appointme nt. Thank you. 2024 025 [email or web address] Owen Hinson MD (Nephrology, [address], [address], [place], [address], 12/25/2024 09:41:35 orthopedi c surgeon referral 2024 025 Bailey Hernandez MD, [address] [facility], [place], [address], 10/08/2024 17:47:12 orthopedi c surgeon referral - Please call patient to schedule. 2024 025 Bailey Hernandez MD, [address] [facility], [place], [address], 10/08/2024 17:47:11 gastroent erologist referral - Please call patient to schedule an appointme nt. Thank you. 2024 025 kendra Childers MD, [address] [facility], [address], [place], [address], 11/24/2024 17:58:06 cardiolog ist referral 2024 025 [email or web address] [place], [address] [facility], [address], [place], [address], 10/08/2024 17:46:51 gastroent erologist referral - Please call patient to schedule an appointme nt. Thank you. 2024 025 kendra Childers MD, [address] [facility], [address], [place], [address], 12/23/2024 08:40:[address] referral - Please call patient to schedule an appointme nt. Thank you. 2024 025 NEO Hare MD, [address] [facility], [address], [place], [address], 10/23/2024 12:20:31 podiatris t referral 2024 025 [email or web address] Miguel A Balderrama DPM, [address] [facility], [address], [place], [address], 10/08/2024 17:46:50 ENT surgery referral - Please call patient to schedule. 2023 024 [email or web address] 2 Barbara N Rik [employer], [address], [place], [address], 11/25/2024 08:19:42 Procedures injection /aspirati on joint/bur sa (PROC) 2024 025 [email or web address] In-Office Order, Internal Use Only DO Not Attach Compendium DO Not Attach Compendium, Do Not Delete/merge, [id number] 10/08/2024 14:40:14 Surgeries None recorded. Imaging MRI, shoulder, w/o contrast - Please contact pt to schedule apt. Thanks [address], [address], [place], [address], 12/05/2024 19:53:41 Medication Orders Celebrex 200 mg capsule [address] [facility], [address] [place] [address], [id number], 12/05/2024 19:53:41 atorvasta tin 40 mg tablet 2024 [facility], [address] [place] [address], [id number], 11/20/2024 12:44:48 metoprolo l succinate ER 50 mg tablet,ex tended release 24 hr 2024 [facility], [address] [place], [address], 11/20/2024 12:44:49 bupivacai ne HCl 0.5 % (5 mg/mL) injection solution [address] [facility], [address] [place] [address], [address], 10/12/2024 20:27:32 Kenalog 10 mg/mL suspensio n for injection [address] [facility], [address] [place] [address], [address], 10/12/2024 20:27:32 Mobic 15 mg tablet [address] [facility], [address] [place] [address], [address], 10/12/2024 20:27:32 meloxicam 7.5 mg tablet 2024 025 [facility], [address] [place] [address], [address], 10/07/2024 12:34:00 ipratropi um bromide 42 mcg (0.06 %) nasal spray 2023 024 [facility], [address] [place] [address], [address], 08/27/2024 09:26:59 albuterol sulfate HFA 90 mcg/actua tion aerosol inhaler 2023 024 [facility], [address] [place] [address], [address], 08/27/2024 09:26:55 Anoro Ellipta 62.5 mcg-25 mcg/actua tion powder for inhalatio n 2023 024 [facility], [address] [place] [address], [address], 08/27/2024 09:26:56 Patient TargetsNo targets recorded. Patient Instructions Encounter Date Encounter Id Patient Instructions Last Modified By Organization Details Last Modified Time 10/07/2024 [id number] diabetic eye exam* [email or web address] Not available 10/07/2024 12:29:43 11/20/2024 [id number] diabetic eye exam* [email or web address] Not available 11/20/2024 12:46:05 Reason for Referral ENT Surgery Referral for Dys phonia Please call patient to schedule. Referring Physician: Duncan Suarez, Pulmonary Disease, Encounter Date: 08/27/2024 Leather Goods Sales Representative Referral for Type 2 diabetes mellitus without complication Referring Physician: Naila Moreno Internal Medicine, Encounter Date: 10/07/2024 Telephone Clerk Telegraph Office Referral for Co ronary arteriosclerosis Referring Physician: Naila Moreno Internal Medicine, Encounter Date: 10/07/2024 Neurologist Referral for Tra nsient cerebral ischemia Please call patient to schedule an appointment. Thank you. Referring Physician: Naila Moreno Internal Medicine, Encounter Date: 10/07/2024 Landscape Artist Referral for Pr oteinuria Please call patient to schedule an appointment. Thank you. Referring Physician: Naila Moreno Internal Medicine, Encounter Date: 10/07/2024 Orthopedic Surgeon Referral for Pain of right knee joint Please call patient to schedule. Referring Physician: Naila Moreno Internal Medicine, Encounter Date: 10/07/2024 Supervisor Veneer Referral for Melendez's esophagus Please call patient to schedule an appointment. Thank you. Referring Physician: Naila Moreno Internal Medicine, Encounter Date: 10/07/2024 Supervisor Veneer Referral for Liver enzymes level above reference [...] Bailey Hernandez, Orthopedic Surgery, Encounter Date: 10/08/2024 Leather Goods Sales Representative Referral for Type 2 diabetes mellitus without complication Please call patient to schedule an appointment. Thank you. Referring Physician: Naila Moreno Internal Medicine, Encounter Date: 11/20/2024 Telephone Clerk Telegraph Office Referral for Co ronary arteriosclerosis Please call patient to schedule an appointment. Thank you. Referring Physician: Naila Moreno Internal Medicine, Encounter Date: 11/20/2024 Neurologist Referral for Tra nsient cerebral ischemia Please call patient to schedule an appointment. Thank you. Referring Physician: Naila Moreno Internal Medicine, Encounter Date: 11/20/2024 Landscape Artist Referral for Pr oteinuria Please call patient to schedule an appointment. Thank you. Referring Physician: Naila Moreno [facility], Encounter Date: 11/20/2024 Supervisor Veneer Referral for Melendez's esophagus Please call patient to schedule an appointment. Thank you. Referring Physician: Naila Moreno [facility], Encounter Date: 11/20/2024 Supervisor Veneer Referral for Liver enzymes level above reference range Please call patient to schedule an appointment. Thank you. Referring Physician: Naila Moreno [facility], Encounter Date: 11/20/2024 Orthopedic Surgeon Referral for Pain of left shoulder joint Please call patient to schedule an appointment. Thank you. Referring Physician: Naila Moreno [facility], Encounter Date: 11/20/2024 Vascular Surgeon Referral fo r Carotid artery stenosis Please call patient to schedule an appointment. Thank you. Referring Physician: Naila Moreno [facility], Encounter Date: 11/20/2024 Results Created Date Observation Date Name Description Value Unit Range Abnormal Flag Note LastModifiedBy Organization Detail LastModifiedTime 08/27/20 24 08/30/2024 CULTU RE, SPUTU M/LOW ER RESPI RATOR Y culture, sputum/lower respiratory SEE NOTE abnormal CULTU RE, SPUTU M/LOW ER RESPI RATOR Y Micro Numbe r: [id number] Test Statu s: Final Speci men [...] or addit ional testi ng. Not Available [facility] [address] [place], [address], 08/30/2024 09:54:32 08/08/20 24 06/18/2024 compl ete PFT w/ [facility] hodil ator altagracia metry * No observ ation record ed. BARCODE Not Available 2023 11:25:37 10/01/19 25 10/01/2024 imagi ng/di agnos tic resul t No observ ation record ed. [address], [place], [address], 10/01/2024 21:41:55 12/22/19 25 12/21/2024 imagi ng/di agnos tic resul t No observ ation record ed. [address], [place], [address], 12/21/2024 13:10:41 01/03/20 25 01/02/2025 imagi ng/di agnos tic resul t No observ ation record ed. [facility] [address] [facility], [place], [address], 01/02/2025 13:25:36 01/14/20 25 01/12/2025 imagi ng/di agnos tic resul t No observ ation record ed. [address], [place], [address], 01/13/2025 11:35:03 01/27/20 25 01/25/2025 imagi ng/di agnos tic resul t No observ ation record ed. [address], [place], [address], 01/26/2025 07:22:46 01/28/20 25 01/27/2025 imagi ng/di agnos tic resul t No observ ation record ed. [address] [facility] [place], [address], 01/27/2025 17:11:51 02/05/20 25 02/04/2025 imagi ng/di agnos tic resul t No observ ation record ed. [address], [place], [address], 02/04/2025 18:37:32 02/05/20 25 02/04/2025 imagi ng/di agnos tic resul t No observ ation record ed. [address], [place], [address], 02/04/2025 18:44:57 02/05/20 25 02/04/2025 imagi ng/di agnos tic resul t No observ ation record ed. [address], [place], [address], 02/04/2025 18:46:10 02/07/20 25 02/04/2025 imagi ng/di agnos tic resul t No observ ation record ed. [facility] [place] [address], [place], [address], 02/06/2025 09:34:05 Result Notes None recorded. Problems Name Problem SNOMED Code Status Onset Date Resolution Date Notes Provider Name and Address Organization Details Recorded Time Carotid artery stenosis 65658526 Active 2022 Not Available [facility] 4 22:24:36 Coronary arteriosc lerosis 06471206 Active 2022 Not Available [facility] 4 22:24:36 Vitamin D deficienc y 86192836 Active 2022 Not Available [facility] 4 22:24:36 Carotid artery stenosis 19605117 Active 2022 Not Available [facility] 4 22:24:36 Male hypogonad ism 64359755 Active 2022 Not Available [facility] 4 22:24:36 Diabetic periphera l neuropath y 350746855 Active 2022 Not Available [facility] 4 22:24:36 Bilateral foot congenita l pes cavus 67236852884 791224 Active 2022 Not Available [facility] 4 22:24:35 Melendez's esophagus 370662434 Active 2022 Not Available [facility] 4 22:24:36 Transient cerebral ischemia 111837289 Active 2023 Naila albright MD [address], [address], [place], [address] , [employer] 4 12:46:26 Serum vitamin B12 below reference range 880458635 Active 2023 Naila albright MD [address], [address], [place], [address] , [employer] 4 12:46:26 Chronic kidney disease 480676141 Active 2023 Naila albright MD [address], [address], [place], [address] , [employer] 4 10:23:58 Osteoarth ritis of right knee joint 36864239337 9100 Active 2023 ANGIE Martinez [address], [address], [place], [address] , [facility] [employer] [facility] [employer] [facility] 4 16:55:12 Penile candidias is 912602752 Active 2023 Naila albright MD [address], [place], [address] , [facility] [employer] [facility] 4 14:16:16 Chronic obstructi ve pulmonary disease 46448706 Active 2023 Naila albright MD [address], [address], [place], [address] , [facility] - [facility] [employer] [facility] 4 14:16:16 Mild chronic obstructi ve pulmonary disease 025983463 Active 2023 Duncan Suarez MD [address], [place], [address] , [facility] [employer] [facility] 4 16:48:00 Posterior rhinorrhe a 91933186 Active 2023 Duncan Suarez MD [address], [address], [place], [address] , [facility] [employer] [facility] 4 17:22:34 Dysphonia 28207071 Active 2023 Dnucan Suarez MD [address], [place], [address] , [facility] - [facility] 4 09:26:26 Liver enzymes level above reference range 812681633 Active 2024 Naila albright MD [address], [place], [address] , [facility] - [facility] 5 12:14:26 Proteinur ia 92012323 Active 2024 Naila albright MD [address], [place], [address] , [place] [facility] 5 12:14:26 Chronic pain 19347841 Active 2024 Naila albright MD [address], [address], [place], [address] , [place] [facility] 5 12:14:26 Type 2 diabetes mellitus without complicat ion 426367467 Active 2024 Naila albright MD [address], [address], [place], [address] , [place] [facility] 5 12:14:26 Pain of right knee joint 08164921842 4100 Active 2024 Naila albright MD [address], [address], [place], [address] , [place] [facility] [place] [facility] 5 12:14:26 Abdominal pain 19989342 Active 2024 Naila albright MD [address], [address], [place], [address] , [place] [facility] 5 12:14:26 Pneumonia 855993418 Active 2024 Naila albright MD [address], [address], [place], [address] , [place] [facility] 5 12:14:26 Acute allergic reaction 531879837 Active 2024 Naila albright MD [address], [address], [place], [address] , [place] [facility] 5 12:14:26 Pain of bilateral hip joints 82388105810 412108 Active 2024 Naila albright MD [address], [address], [place], [address] , [place] [facility] 5 12:14:26 Pain of left shoulder joint 10166438132 293790 Active 2024 Naila albright MD [address] [facility], [address], [place], [address] , [place] [facility] 5 12:32:15 Computed tomograph y result abnormal 015717509 Active 2024 Mary Coley, RMJamaal null, [place] [facility] [place] [facility] 5 15:06:05 Chronic back pain 721052743 Active 1990 on pain meds from Dr Villatoro Not Available [facility] 4 22:24:35 Impacted cerumen 19806264 Completed Not Available [facility] 3 04:53:49 Gastroeso phageal reflux disease 726876715 Active Not Available [facility] 4 22:24:36 Microalbu minuria 560594018 Active 2021 Not Available [facility] 4 22:24:36 Restless legs 99444709 Active 2017 Not Available [facility] 4 22:24:36 Sinusitis 72940384 Completed Not Available [facility] 3 04:53:50 Solitary nodule of lung 438658006 Active 2022 Not Available [facility] 4 22:24:36 Herpes zoster 9606367 Completed Not Available [facility] 3 04:53:50 Pain of hip region 69893284 Completed Not Available [facility] 3 04:53:50 Dysuria 72715707 Completed Not Available [facility] 3 04:53:50 Hyperlipi demia 51577159 Active Not Available [facility] 4 22:24:36 Essential hypertens ion 20544558 Active Not Available [facility] 4 22:24:36 Diarrhea 63002838 Completed Not Available [facility] 3 04:53:51 Polyp of colon 29224016 Active Not Available [facility] 4 22:24:36 Notes:Medical History: TIA 2 023 R>L tinnitus Rhinitis with postnasal drip IgE 112 IU/mL Eosinophils 90/uL Goiter Mild COPD RUL nodule Mixed hyperlipidemia T2DM with microalbuminuria & neuropathy CAD Hiatal hernia with ALEX & Melendez's esophagus Hepatic steatosis Diverticulosis Thoracolumbar DDD Right knee chondromalacia & bursitis RLS Procedure History: T&A 196 Anterior cervical discectomy fusion (ACDF) 1998 Left hip replacement 2007 Colonoscopy with candelaria ypectomy 2010 Right hip replacement 2018 Right carotid artery stent 2022 Cholecystectomy Occupational History: retired [employer] Problem Notes None recorded. Procedures Surgical History Date Name Laterality Status Provider Name and Address Organization Details Recorded Time 10/08/19 25 Ortho - Cortisone Injection completed Bailey Hernandez MD [address] [facility], [place], [address], [facility] 10/08/2024 15:44:23 06/04/20 24 Transitional_Car e_Management completed Naila Moreno MD [address], [place], [address], [employer] 06/04/2024 14:34:44 05/26/20 24 Transitional_Car e_Management completed Naila Moreno MD [address] [facility] [address], [place], [address], [facility] 05/26/2024 18:46:46 04/03/20 24 Medicare Wellness CPT Code, subsequent completed Sumeet Lai LPN [facility] 04/01/2024 12:41:54 05/02/20 23 Colonoscopy completed LEE Boyd [facility] 05/16/2023 14:33:53 02/01/20 19 [facility] hip arthroplasty completed [facility] 11/15/2022 04:43:55 Orthopedic Surgery completed Not Available [facility] 11/15/2022 04:43:55 Orthopedic Surgery completed Not Available [facility] 11/15/2022 04:43:55 Orthopedic Surgery completed [facility] 11/15/2022 04:43:55 insertion of carotid artery stent completed LEE Boyd [facility] 03/28/2023 14:33:51 Imaging Results Imaging Date Name Status LastModified by Organization Details LastModified Time 06/18/2024 complete PFT w/ post bronchodilator spirometry* completed [facility] Information not available 08/08/2024 11:25:37 10/01/2024 imaging/diagnostic result active [address], [place], [address], 10/01/2024 21:41:55 12/21/2024 imaging/diagnostic result active [address], [place], [address], 12/21/2024 13:10:41 01/02/2025 imaging/diagnostic result active [facility] [address], [place], [address], 01/02/2025 13:25:36 01/12/2025 imaging/diagnostic result active [address], [place], [address], 01/13/2025 11:35:03 01/25/2025 imaging/diagnostic result active [address], [place], [address], 01/26/2025 07:22:46 01/27/2025 imaging/diagnostic result active [address], [place], [address], 01/27/2025 17:11:51 02/04/2025 imaging/diagnostic result active [address], [place], [address], 02/04/2025 18:37:32 02/04/2025 imaging/diagnostic result active [address], [place], [address], 02/04/2025 18:44:57 02/04/2025 imaging/diagnostic result active [address], [place], [address], 02/04/2025 18:46:10 02/04/2025 imaging/diagnostic result active [facility] Teresa Garg [address], [place], [address], 02/06/2025 09:34:05 Procedure Notes None recorded. Medical Equipment None [...] mg by injectio n route. 2024 active [facility]: [id number] 01-04 Not Available Not Available Not Available amlodipin [...] bromide 42 mcg (0.06 %) nasal spray Granite 1 spray 4 times a day by [...] Updated DateTime 4 162.56 cm 25.3 kg/m2 96349.8 g 98.2 [degF] 81 /min 97 % 97 % Gayle Quintanilla MA MA - [facility] [employer] 4 08:54:56 Date Recorded Heart rate Respiratory rate Systolic blood pressure Diastolic blood pressure Provider Name and Address Organization Details Last Updated DateTime 08/27/2024 81 /min 17 /min 140 mm[Hg] 84 mm[Hg] Duncan jose MD [address], [facility] [address], [place], [address] , [facility] [employer] 08/27/2024 09:17:52 Date Recorded Body height Body mass index (BMI) Body weight Body temperature Heart rate Systolic blood pressure Diastolic blood pressure Provider Name and Address Organization Details Last Updated DateTime 162.56 cm 23.3 kg/m2 34424.5 6 g 97.7 [degF] 78 /min 140 mm[Hg] 80 mm[Hg] LEE Boyd [facility] [employer] 11:57:16 Date Recorded Body height Body mass index (BMI) Body weight Provider Name and Address Organization Details Last Updated DateTime 10/08/2024 162.56 cm 23.3 kg/m2 62537.56 g [facility] [employer] 10/08/2024 14:27:08 Date Recorded Body height Body mass index (BMI) Body weight Body temperature Heart rate Oxygen saturation Oxygen saturation in Arterial blood by Pulse oximetry Systolic blood pressure Diastolic blood pressure Provider Name and Address Organization Details Last Updated DateTime 162.56 cm 22.8 kg/m2 79086.7 9 g 97.8 [degF] 81 /min 97 % 97 % 160 mm[Hg] 82 mm[Hg] Gayle Quintanilla MA [facility] [employer] 11:56:05 Date Recorded Body height Body mass index (BMI) Body weight Provider Name and Address Organization Details Last Updated DateTime 12/03/2024 162.56 cm 23.3 kg/m2 93679.56 g [facility] [employer] 12/03/2024 14:53:40 Social History Question Answer Notes LastModified by Organization Details LastModified Time Tobacco Smoking Status Former Smoker quit 02/2023 LEE Boyd [facility] [employer] 03/28/2023 14:32:44 Do You Have An Advance Directive? Yes Patient Stated He Needs To Update Since . Recommended Working With An Paperhanger Assistant. MIGRATION.800 [id number] Information not available 11/15/2022 Do You Wear A Helmet When Biking? No Does Not Bike [email or web address] Information not available 04/03/2024 Are You Blind Or Do You Have Difficulty Seeing? No MIGRATION.932 [id number] Information not available 11/15/2022 Is Blood Transfusion Acceptable In An Emergency? Yes [email or web address] Information not available 04/03/2024 What Is Your Level Of Caffeine Consumption? Moderate MIGRATION.481 [id number] Information not available 11/15/2022 How Much Tobacco Do You Chew? None MIGRATION.356 [id number] Information not available 11/15/2022 In The 14 Days Before Symptom Onset, Have You Had Close Contact With A Laboratory-conf irmed COVID-19 While That Case Was Ill? No MIGRATION.049 [id number] Information not available 11/15/2022 In The 14 Days Before Symptom Onset, Have You Had Close Contact With A Person Who Is Under Investigation For COVID-19 While That Person Was Ill? No MIGRATION.536 [id number] Information not available 11/15/2022 Are You Deaf Or Do You Have Serious Difficulty Hearing? No MIGRATION.393 7236124 Information not available 11/15/2022 What Type Of Diet Are You Following? REGULAR MIGRATION.882 [id number] Information not available 11/15/2022 Which Illicit Or Recreational Drugs Have You Used? None MIGRATION.333 7477865 Information not available 11/15/2022 What Is The Highest Grade Or Level Of School You Have Completed Or The Highest Degree You Have Received? [id number] [email or web address] Information not available 04/03/2024 Do You Have An Electrostatic Air Filter? No Information not available 08/27/2024 How Many Days Of Moderate To Strenuous Exercise, Like A Brisk Walk, Did You Do In The Last 7 Days? 2 Information not available 04/03/2024 On Those Days That You Engage In Moderate To Strenuous Exercise, How Many Minutes, On Average, Do You Exercise? 30 [email or web address] Information not available 04/03/2024 Have There Been Any Changes To Your Family Or Social Situation? No MIGRATION.236 9959034 Information not available 11/15/2022 What Is The Fluoride Status Of Your Home? Unknown MIGRATION.688 3363016 Information not available 11/15/2022 When Did You Quit Smoking? 1-5yearssincelastc igarette [email or web address] Information not available 04/05/2023 Are There Any Guns Present In Your Home? No MIGRATION.757 8205890 Information not available 11/15/2022 Do You Have A Humidifier? No Information not available 08/27/2024 Do You Use Insect Repellent Routinely? No MIGRATION.469 1537948 Information not available 11/15/2022 [facility] MIGRATION.231 4639180 Information not available 11/15/2022 Presence Of Domestic Violence No Information not available 04/03/2024 Guns Present In The Home? No Information not available 04/03/2024 Are You Able To Care For Yourself? Yes [email or web address] Information not available 04/03/2024 Are You Blind Or Do Yo Have Difficulty Seeing? No Information not available 04/03/2024 Are You Deaf Or Do You Have Serious Difficulty Hearing? No [email or web address] Information not available 04/03/2024 General Stress Level? Low [email or web address] Information not available 04/03/2024 Live Alone Of With Others? With Others Dtr. And Her Family Lives Woth Patient [email or web address] Information not available 04/03/2024 Do You Have A Medical Power Of Paperhanger Assistant? No [email or web address] Information not available 04/03/2024 Do You Have Moisture Problems In Your Home? No Information not available 08/27/2024 What Was The Date Of Your Most Recent Tobacco Screening? 11/20/2024 Information not available 11/20/2024 What Is Your Current Pack Years? 30ormorepackyears MIGRATION.677 [id number] Information not available 11/15/2022 Do You Have Any Pets? No 1 Dog 1 Cat Information not available 04/03/2024 What Is Your Relationship Status? MIGRATION.463 8650215 Information not available 11/15/2022 Do You Use Your Seat Belt Or Car Seat Routinely? Yes MIGRATION.272 [id number] Information not available 11/15/2022 Do You Have Smoke And Carbon Monoxide Detectors In Your Home? Yes MIGRATION.855 5400132 Information not available 11/15/2022 At What Age Did You Start Smoking Tobacco? 18 MIGRATION.165 9497482 Information not available 11/15/2022 Are You Passively Exposed To Smoke? No [email or web address] Information not available 04/03/2024 Are There Any Smokers In Your House? No [email or web address] Information not available 04/03/2024 How Much Tobacco Do You Smoke? No Was 1/2 Ppd Information not available 03/28/2023 What Types Of Sporting Activities Do You Participate In? None [email or web address] Information not available 04/03/2024 Do You Use Sunscreen Routinely? Yes MIGRATION.136 0381293 Information not available 11/15/2022 How Many Years Have You Smoked Tobacco? 53 MIGRATION.715 1437709 Information not available 11/15/2022 Have You Recently Traveled Abroad? No MIGRATION.403 4899662 Information not available 11/15/2022 Do You Have Difficulty Walking Or Climbing Stairs? No MIGRATION.190 0661755 Information not available 11/15/2022 Do You Have Any Dietary Restrictions? No MIGRATION.239 2742054 Information not available 11/15/2022 Sex: Male Functional Status Question Answer Note LastModified by [employer] ion Details LastModified Time Do you use any illicit or recreational drugs? No MIGRATION.229106 [id number] Information not available 11/15/2022 Do you or have you ever used any other forms of tobacco or nicotine? No MIGRATION.512821 1706 Information not available 11/15/2022 What is your level of alcohol consumption? None MIGRATION.306155 0495 Information not available 11/15/2022 Are you currently employed? No Information not available 03/28/2023 Have you been exposed to chemicals or toxins? No No that aware of Information not available 08/27/2024 Do you have transportation difficulties? No MIGRATION.201976 7005 Information not available 11/15/2022 Are you able to walk? YESWOREST MIGRATION.860294 0298 Information not available 11/15/2022 Do you have difficulty doing errands alone? No MIGRATION.011812 8636 Information not available 11/15/2022 Are you able to care for yourself? Yes MIGRATION.071715 0865 Information not available 11/15/2022 What is your occupation? Retired MIGRATION.233147 9983 Information not available 11/15/2022 Do you have difficulty dressing or bathing? No MIGRATION.547551 9406 Information not available 11/15/2022 What is your exercise level? Occasional Active life [email or web address] Information not available 04/03/2024 Mental Status Question Answer Note LastModified by Organizat ion Details LastModified Time Do you feel stressed (tense, restless, nervous, or anxious, or unable to sleep at night)? [id number] MIGRATION.[id number] 26 Information not available 11/15/2022 Do you have difficulty concentrating, remembering or making decisions? No MIGRATION.56519574 26 Information not available 11/15/2022 Family History Relationship Description Onset Age of this Age Resolved Age Notes LastModified by Organization Details LastModified Time Brother Essential hypertension MIGRATION.897 [id number] Not available 11/15/2022 04:44:01 Brother Malignant neoplastic disease Colon MIGRATION.890 [id number] Not available 11/15/2022 04:44:01 Father Essential hypertension MIGRATION.475 8149012 Not available 11/15/2022 04:44:01 Father Heart disease MIGRATION.628 5759392 Not available 11/15/2022 04:44:01 Mother Essential hypertension MIGRATION.896 1560354 Not available 11/15/2022 04:44:01 Mother Heart disease MIGRATION.114 2622151 Not available 11/15/2022 04:44:01 Sister Malignant neoplastic disease Breast MIGRATION.555 6072341 Not available 11/15/2022 04:44:02 Maternal Grandmother Family history of stroke [email or web address] Not available 2022 14:36:39 Mother Arthritis Not [...] mcg/0.25mL dose 1 completed Sumeet Lai LPN null, [place] - [facility] [employer] 04/01/2024 14:20:36 COVID-19, mRNA, LNP-S, PF, 100 mcg/0.5mL dose or 50 mcg/0.25mL dose 1 completed Sumeet Lai LPN null, [facility] 04/01/2024 14:20:36 pneumococcal polysaccharide PPV23 3 completed Sumeet Lai LPN null, [facility] 04/01/2024 14:20:36 Influenza, split virus, trivalent, PF 7 completed [facility] 14:20:37 COVID-19, mRNA, LNP-S, PF, 30 mcg/0.3 mL dose 1 completed Sumeet Lai LPN null, [facility] 04/01/2024 14:20:36 COVID-19, mRNA, LNP-S, PF, 30 mcg/0.3 mL dose 1 completed SANDRA Rosa, [facility] 04/01/2024 14:20:36 pneumococcal polysaccharide PPV23 7 completed Sumeet Lai LPN null, [facility] 04/01/2024 14:20:36 Influenza, high-dose, trivalent, PF 9 completed Not Available [facility] 10/02/2023 01:29:04 Influenza, high-dose, trivalent, PF 8 completed Not Available [facility] 10/02/2023 01:29:04 Pneumococcal conjugate PCV 13 8 completed SANDRA Rosa, [facility] 04/01/2024 14:20:36 Influenza, high-dose, trivalent, PF 5 completed Not Available [facility] 10/02/2023 01:29:04 pneumococcal polysaccharide PPV23 5 completed Not Available [facility] 10/02/2023 01:29:04 Influenza, split virus, trivalent, PF 4 completed Sumeet Lai LPN null, [facility] 04/01/2024 14:20:37 Influenza, split virus, trivalent, PF 3 completed SANDRA Rosa [place] - [facility] 04/01/2024 14:20:37 Past Encounters Encounter ID Performer Location Encounter Start Date Encounter Closed Date Diagnosis/Indication Diagnosis SNOMED-CT Code Diagnosis ICD10 Code Diagnosis Note [id number] Josemanuel Jones MD [facility] [address] [place] [address] 05/26/2021 00:00:00 06/07/2021 17:13:19 [id number] Josemanuel Jones MD [facility] [address] [place] [address] 05/26/2021 00:00:00 06/07/2021 17:22:34 [id number] MD VEGA [facility] [address] [place] [address] 10/11/2021 00:00:00 10/11/2021 12:15:42 [id number] MD VEGA [facility] [address] [facility] [place] [address] 11/10/2021 00:00:00 11/10/2021 14:15:46 [id number] Josemanuel Jones MD [facility] [address] [place] [address]. [place] [address] 12/21/2021 00:00:00 12/21/2021 12:26:48 [id number] MD VEGA [facility] [address] [place] [address]. [place] [address] 02/09/2022 00:00:00 02/09/2022 13:02:43 [id number] Josemanuel Jones MD [facility] [address] [facility] [place] [address] 06/13/2022 00:00:00 06/13/2022 17:11:20 [id number] MD VEGA [facility] [address] [facility] [place] [address] 07/26/2022 00:00:00 07/26/2022 10:05:44 [id number] Josemanuel Jones MD [facility] Internal Med [address] [place] [address] 10/16/2022 00:00:00 10/16/2022 17:28:29 [id number] Josemanuel Jones MD [facility] Internal Med [address] [place] [address] 02/22/2023 14:00:48 02/22/2023 14:44:11 Diabetes mellitus 98166382 E11.9 , advised to get labs Hyperlipidemia 55361365 E78.5 Zetia, needs labs Essential hypertension 17147839 I10 add HCTZ Restless legs 06591676 G 25.81 meds help Gastroesop hageal reflux disease 179467750 K21.9 meds help Chronic pain syndrome 37 2413243 G89.4 otc helps Pain of bi lateral hip joints 8784891902 1480975 M25.551 OTC Smoker 06374305 F17.200 advised to quit Solitary n odule of lung 718514612 R91.1 advised to quit smoking Adult heal th examination 218683398 Z00.00 colonoscop y- due, was ordered few times, he will call GI to schedule it, will not reorderPSA -07/07, WAS IKAIPD46-1 09/23/2017PP 23- 07/28/2013 , 02/2017, 08/04/2015 influenza vaccine- 08/13/19CO VID- 12/26/2020 , 01/27/2021 Chronic ob structive pulmonary disease 52008253 J44.9 better Weakness o f left upper limb 9749283265 54248 M62.81 improved, watch, symptoms were vague Screening for malignant neoplasm of prostate 072536674 Z12.5 Depression screening 171 002493 Z13.31 neg Body mass index 20-24 - normal 496600321 Z68.23 [id number] Naila albright MD [facility] [address] [place] [address] 03/28/2023 13:57:30 03/28/2023 15:13:44 Screening - NAD 564184887 Z13.9 C-scope: Get this done or get the report if done Get yearly flu shotUTD on COVID X2, can do boostersUT D on PCVGet tdap if not doneGet Shingrix if not done RTC in 3 months, do labs, ER if worse, he did verbalize his understand ing of the above Hyperlipidemia 56500006 E78.5 On ASAOn atorvastat in 40mg dailyGet labs 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 781228917 E11.9 On metformin Get labs Gastroesop hageal reflux disease without esophagitis 814344873 K21.9 On omeprazole Get EGD done Chronic ob structive pulmonary disease 01549992 J44.9 On albuterolO n HHNsOn trelegy Carotid ar angel stenosis 49714407 I65.29 S/p stent in 03/09On ASAOn plavix Restless legs 16702305 G 25.81 On requipDoes well Ex-cigarette smoker 2810 16731 Z87.891 LDCT 09/21/2022 Get US AAA done Coronary arteriosclerosis 22122594 I25.10 CAD noted Get a referral to cardiology Dr Guevara Screening for malignant neoplasm of colon 548926002 Z12.11 Transient cerebral ischemia 469009706 G45.[address] Schumacher his neurologis t, get last OV note S/p hospitaliz ation, does very well now, no residual symptoms at this timeOn [place]SA[place] in [id number] Duncan Suarez MD [facility] Pulmonolo gy [address] [place] [address] 04/05/2023 11:23:02 04/06/2023 07:44:46 Dyspnea on exertion 30214741 R06.09 R05.9 T78.40XA D89.9 Solitary n odule of lung 000050199 R91.1 [id number] Naila albright MD [facility] Internal Med [facility] [address] [place] [address] , [place] [address] 05/16/2023 14:18:54 05/16/2023 15:23:17 Screening - NAD 371310952 Z13.9 C-scope: Get this done or get the report if done Get yearly flu shotUTD on COVID X2, can do boostersUT D on PCVGet tdap if not doneGet Shingrix if not done RTC in 3 months, do labs, ER if worse, he did verbalize his understand ing of the above Hyperlipidemia 23701217 E78.5 On ASAOn atorvastat in 40mg dailyGet labs 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 565038193 E11.9 On metforminO n FarxigaOn olmesartan Get labs Gastroesop hageal reflux disease without esophagitis 407390342 K21.9 On omeprazole Get EGD done Chronic ob structive pulmonary disease 73492172 J44.9 On albuterolO n HHNsOn trelegy Carotid ar agnel stenosis 17319866 I65.29 S/p stent in 03/09On ASAOn plavix Restless legs 63140001 G 25.81 On requipDoes well Ex-cigarette smoker 2810 95524 Z87.891 LDCT 09/21/2022 Get US AAA done as US AAA 04/04/2023 was non diagnostic d/t bowel gas Coronary arteriosclerosis 23100223 I25.10 [address] notedDr Bette 04/12/2023 , f/u in one month Screening for malignant neoplasm of colon 097249845 Z12.11 Transient cerebral ischemia 876914704 G45.9 CT Angio: 02/28/2023 : High grade stenosis, R ICA, s/p stent He does see Dr Schumacher his neurologis t, get last OV note S/p hospitaliz ation, does very well now, no residual symptoms at this timeOn ASAOn plavixOn atorvastat in Liver enzy mes level above reference range 939081911 R74.8 Get labs and US liver Proteinuria 69030147 R80 .9 Sees nephrology Pain of ri ght knee joint 1749755466 37475 M25.561 Get a referral to [facility] Male hypogonadism 905296 06 E29.1 get labs Serum shane min B12 below reference range 683309558 R79.89 Vitamin D deficiency 347 20217 E55.9 [id number] Balbir Wilkins MD [facility] [address] [address] 05/24/2023 13:58:48 05/24/2023 16:01:49 Pain of right knee joint 1928788970 19329 M25.376 [id number] Miguel A Balderrama DPM [facility] [place] [address] [facility] [address] [place] [address] 07/10/2023 14:30:43 07/16/2023 09:50:24 Diabetic peripheral neuropathy 274513960 E11.40 Rx diabetic shoes and insertsPat ient educated on neuropathy , diabetes, diabetic diet, and daily foot exams. Patient is to check feet daily for new wounds, blisters, redness to prevent infection and ulceration s to the feet. Patient will return to clinic in 3 months for diabetic foot workup. Bilateral foot congenital pes cavus 3064521431 5591961 Q66.71 Q66.72 Recommend diabetic shoes and inserts History of cerebrovascular accident 265256301 Z86.73 continue with PCP recommenda tion [id number] Naila albright MD [facility] Internal Med [facility] [address] [facility] [place] [address] 08/30/2023 13:57:45 08/30/2023 15:23:44 Screening - NAD 737922966 Z13.9 C-scope: 05/02/2023 , Dr Dickson next in one year Get yearly flu shotUTD on COVID X2, can do boostersUT D on PCVGet tdap if not doneGet Shingrix if not done RTC in 3 months, do labs, ER if worse, he did verbalize his understand ing of the above Hyperlipidemia 08863298 E78.5 On ASAOn atorvastat in 40mg dailyGet labs 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 866628078 E11.9 On metforminO n FarxigaOn olmesartan Get labs Chronic ob structive pulmonary disease 63254521 J44.9 On albuterolO n HHNsOn trelegy Carotid ar angel stenosis 37656996 I65.29 S/p stent in 03/09On ASAOn plavix Restless legs 39523915 G 25.81 On requipDoes well Ex-cigarette smoker 2810 69351 Z87.891 LDCT 09/21/2022 Get US AAA done as US AAA 04/04/2023 was non diagnostic d/t bowel gas Coronary arteriosclerosis 56299901 I25.10 CAD notedDr Bette 04/12/2023 , f/u in one month Transient cerebral ischemia 825524185 G45.9 CT Angio: 02/28/2023 : High grade stenosis, R ICA, s/p stent He does see Dr Schumacher his neurologis t, get last OV note S/p hospitaliz ation, does very well now, no residual symptoms at this timeOn ASAOn plavixOn atorvastat in Liver enzy mes level above reference range 191302277 R74.8 ALP 128 03/28/2023 Get labs and US liver Proteinuria 71506707 R80 .9 US kidney 05/25/2023 : Dr Hinson IJ Pain of ri ght knee joint 4213111272 30116 M25.561 MRI R knee: 06/07/2023 : Dr Wilkins Male hypogonadism 159698 06 E29.1 get labs Serum shane min B12 below reference range 630048717 R79.89 Vitamin D deficiency 347 77742 E55.9 Get labs Melendez's esophagus 3029 79019 K22.70 On omeprazole 05/02/2023 : EGD BarrettsNe eds a follow up with GI Impacted c erumen of bilateral ears 2746548211 922812 H61.23 Moderate cerumen extracted from his fuentes ears 08/30/2023 , he tolerated the procedure well Upper resp iratory infection 50228365 J06.9 Get flu/strep and COVID 19 testStart on Z-pack, ER if worse Chronic pain 39475772 G8 9.29 Get a referral to pain management [id number] Naila albright MD [facility] [address] [place] [address] 09/25/2023 15:56:57 09/25/2023 16:44:27 Abdominal pain 27961973 R10.9 Seen in the ER on 09/19/2023 [...] will see him this 09/27/2023 at 10.30am [id number] Subha patricia MD [facility] General Surgery [address] [place] [address] 09/27/2023 11:17:35 09/27/2023 14:26:21 Foreign body 088679608 Z87.821 Foreign body cecum [id number] Naila albright MD [facility] Internal Med [address] [place] [address] 11/29/2023 09:48:07 11/29/2023 10:38:28 Screening - NAD 159287433 Z13.9 C-scope: 05/02/2023 , Dr Dickson next in one year Get yearly flu shotUTD on COVID X2, can do boostersUT D on PCVGet tdap if not doneGet Shingrix if not doneGet RSV vaccine RTC in 3 months, do labs, ER if worse, he did verbalize his understand ing of the above Hyperlipidemia 23931105 E78.5 On ASANot on atorvastat in 40mg daily On rosuvastat in 40mg dailyGet labs 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 293348056 E11.9 On metforminO n FarxigaNot on olmesartan Get labs Chronic ob structive pulmonary disease 55518414 J44.9 On albuterolO n HHNsNot on trelegy Carotid ar angel stenosis 37316641 I65.29 S/p stent in ASAOn plavix Restless legs 36301669 G 25.81 Not on requipOn lyrica 75mg Dr Riojas well Ex-cigarette smoker 2813 28236 Z87.891 LDCT 09/21/2022 Get US AAA done as US AAA 04/04/2023 was non diagnostic d/t bowel gas US AAA 09/18/2023 : Neg Coronary arteriosclerosis 05768659 I25.10 CAD notedDr Bette 04/12/2023 , f/u in one month, referred 11/29/[address] daily Dr Sravan OTERO Transient cerebral ischemia 925053968 G45.9 CT Angio: 02/28/2023 : High grade stenosis, R ICA, s/p stent He does see Dr Schumacher his neurologis t, get last OV note S/p hospitaliz ation, does very well now, no residual symptoms at this timeOn ASANot on plavixNot on atorvastat in On rosuvatati n 40mg daily Liver enzy mes level above reference range 004463872 R74.8 ALP 128 03/28/2023 Get labs and US liver Addendum: 12/07/23US liver 12/03/2023 : Hepatic steatosis, triage notified Proteinuria 85755560 R80 .9 US kidney 05/25/2023 : Dr Sravan OTERO Pain of ri ght knee joint 5301349794 81229 M25.561 MRI R knee: 06/07/2023 : Dr Lemon erred to Dr Hernandez Male hypogonadism 050099 06 E29.1 get labs Serum shane min B12 below reference range 142431072 R79.89 Vitamin D deficiency 347 99275 E55.9 Get labs Melendez's esophagus 3029 23711 K22.70 On omeprazole 05/02/2023 : EGD BarrettsNe eds a follow up with GI Chronic pain 54560581 G8 9.29 Get a referral to pain management today 11/29/2023 , states that he does not want any pain meds at all Abdominal pain 82987290 R10.9 Seen in the ER on 09/19/2023 [...] : Case sent Acute magi rgic reaction 165485512 T78.40XA Seen in ERTreated with steroids, now is doing well Chronic ki dney disease 012523548 N18.9 On calcitriol On losartan Sees Dr Hinson IJ [id number] Naila albright MD [facility] [place] [address] [facility] [address] , [place] [address] 12/10/2023 10:45:19 12/10/2023 11:26:10 Type 2 diabetes mellitus without complication 978053745 E11.9 On metformin ER 500mg daily, will increase to bidOn Farxiga 10mg daily but was not taking d/t costGet on Jardiance 10mg dailyIs adamant that he does not want to start on any insulin, states that he also was not very compliant with the metforminH e has be told to take his meds on scheduleNo t on olmesartan Get labs Penile candidiasis 31582 8000 B37.49 No more rash noted, he is using his nystatin-t rimacinolo ne cream and states that the rash is cleared up now Screening - NAD 28630347 3 Z13.9 C-scope: 05/02/2023 , Dr Dickson next in one year Get yearly flu shotUTD on COVID X2, can do boostersUT D on PCVGet tdap if not doneGet Shingrix if not doneGet RSV vaccine RTC in 3 months, do labs, ER if worse, he did verbalize his understand ing of the above Hyperlipidemia 70038907 E78.5 On ASAOn atorvastat in 40mg daily, states today 12/10/2023 that he has not been compliant with taking his medication , advised to become compliant and repeat the labs Not on rosuvastat in 40mg dailyGet labs Chronic ob structive pulmonary disease 44423431 J44.9 On albuterolO n HHNsNot on trelegy Carotid ar angel stenosis 67907737 I65.29 S/p stent in ASANot on plavixNeed s to see cardiology Restless legs 95724014 G 25.81 Not on requipOn lyrica 75mg Dr Riojas well Ex-cigarette smoker 2810 48669 Z87.891 LDCT 09/21/2022 Get US AAA done as US AAA 04/04/2023 was non diagnostic d/t bowel gas US AAA 09/18/2023 : Neg Coronary arteriosclerosis 31848312 I25.10 CAD notedDr Bette 04/12/2023 , f/u in one month, referred 11/29/[address] daily [address] Sravan Hein to see Dr Amos Transient cerebral ischemia 920544898 G45.9 CT Angio: 02/28/2023 : High grade stenosis, R ICA, s/p stent He does see Dr Schumacher his neurologis t, get last OV note S/p hospitaliz ation, does very well now, no residual symptoms at this timeOn ASANot on plavixNot on atorvastat in On rosuvatati n 40mg daily Liver enzy mes level above reference range 087915611 R74.8 ALP 128 03/28/2023 Get labs and US liver Addendum: 12/07/23US liver 12/03/2023 : Hepatic steatosis, triage notified Proteinuria 18287721 R80 .9 US kidney 05/25/2023 : Dr Sravan OTERO Pain of ri ght knee joint 1778996428 99384 M25.561 MRI R knee: 06/07/2023 : Dr Lemon erred to Dr Hernandez Male hypogonadism 922558 06 E29.1 get labs Serum shane min B12 below reference range 321478217 R79.89 Vitamin D deficiency 347 90149 E55.9 Get labs Melendez's esophagus 3029 34940 K22.70 On omeprazole 05/02/2023 : EGD BarrettsNe eds a follow up with GI Chronic pain 62331330 G8 9.29 Get a referral to pain management today 11/29/2023 , states that he does not want any pain meds at all Abdominal pain 56979524 R10.9 Seen in the ER on 09/19/2023 [...] abd pain noted Acute magi rgic reaction 695645653 T78.40XA Seen in ERTreated with steroids, now is doing well Chronic ki dney disease 206852256 N18.9 On calcitriol On losartan Sees Dr Hinson IJ [id number] Bailey Hernandez MD [facility] [place] [address] [place] [address] 12/25/2023 14:36:22 12/25/2023 15:57:04 Pain of right knee joint 3938256990 99857 M25.561 Osteoarthr itis of right knee joint 3245026427 19417 M17.11 [id number] Bailey Hernandez MD [facility] [place] 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 514859466 E11.9 On metformin ER 500mg bidOn Farxiga 10mg daily but was not taking d/t Carson Jardiance 10mg daily Is adamant that he does not want to start on any insulin, states that he also was not very compliant with the metforminH e has be told to take his meds on scheduleNo t on olmesartan Get labs Penile candidiasis 89865 8000 B37.49 No more rash noted, he is using his nystatin-t rimacinolo ne cream and states that the rash is cleared up now Hyperlipidemia 55828416 E78.5 On ASAOn atorvastat in 40mg daily Not on rosuvastat in 40mg dailyGet labs Chronic ob structive pulmonary disease 07069787 J44.9 On albuterolO n HHNsNot on trelegyNee ds to keep apt with Dr Suarez Carotid ar angel stenosis 94224928 I65.29 S/p stent in 03/09On ASANot on plavixDr Bette [facility] 02/21/2024 , next in 6 months Restless legs 09866099 G 25.81 Not on requipOn lyrica 75mg Dr Riojas well Ex-cigarette smoker 2810 13336 Z87.891 LDCT 09/21/2022 Get US AAA done as US AAA 04/04/2023 was non diagnostic d/t bowel gas US AAA 09/18/2023 : Neg Coronary arteriosclerosis 56742770 I25.10 CAD noted On losartan 50mg daily Dr Sravan palma done 25mg dailyDr Bette 02/20/2023 Transient cerebral ischemia 954645707 G45.9 CT Angio: 02/28/2023 : High grade stenosis, R ICA, s/p stent He does see Dr Schumacher his neurologis t, get last OV note S/p hospitaliz ation, does very well now, no residual symptoms at this timeOn ASANot on plavixNot on atorvastat in On rosuvatati n 40mg daily Liver enzy mes level above reference range 248255414 R74.8 ALP 128 03/28/2023 Get labs and US liver Addendum: 12/07/23US liver 12/03/2023 : Hepatic steatosis, triage notified Proteinuria 13209060 R80 .9 US kidney 05/25/2023 : Dr Hinson IJ Pain of ri ght knee joint 5152352910 83383 M25.561 MRI R knee: 06/07/2023 : Dr Lemon erred to Dr Hernandez Male hypogonadism 144443 06 E29.1 get labs Serum shane min B12 below reference range 776756105 R79.89 Vitamin D deficiency 347 01125 E55.9 Get labs Melendez's esophagus 3029 47269 K22.70 On omeprazole 05/02/2023 : EGD Tonja eds a follow up with GI EGD 01/04/2024 : 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 Addendum: 04/03/2024 :See case, needs to get another EGD, he was notified Chronic pain 71790512 G8 9.29 Referred to pain management 11/29/2023 ,Advised not to take any NSAIDs d/t CAD and CKD issuesOK to refill his methocarba mol to take as needed in very limited quantities , if he needs more see pain management Abdominal pain 70742562 R10.9 Seen in the ER on 09/19/2023 [...] abd pain noted Acute magi rgic reaction 216075056 T78.40XA Seen in ERTreated with steroids, now is doing well Chronic ki dney disease 512933150 N18.9 On calcitriol On losartan Sees Dr Hinson IJ Pain of bi lateral hip joints 6955844216 1186370 M25.551 M25.552 Marcus ADAMS 01/01/2024 Adult heal th examination 569092417 Z00.00 Screening for disorder 718619116 Z13.9 Spasm 69410453 R25.2 Screening for malignant neoplasm of prostate 738737680 Z12.5 [id number] Naila albright MD [facility] [place] [address] [facility] [place] [address] 05/26/2024 16:14:38 05/26/2024 17:25:00 Screening - NAD 186447852 Z13.9 C-scope: 05/02/2023 , Dr Randolph navarro [...] 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 564218567 E11.9 On metformin ER 500mg bidOn Farxiga 10mg daily but was not taking d/t Carson Jardiance 10mg daily Is adamant that he does not want to start on any insulin, states that he also was not very compliant with the metforminH e has be told to take his meds on scheduleNo t on olmesartan Get labs Penile candidiasis 67054 8000 B37.49 No more rash noted, he is using his nystatin-t rimacinolo ne cream and states that the rash is cleared up now Hyperlipidemia 29271301 E78.5 On ASAOn atorvastat in 40mg daily Not on rosuvastat in 40mg dailyGet labs Chronic ob structive pulmonary disease 22603512 J44.9 On albuterolO n HHNsOn trelegy as per d/c from [facility] 05/14/2024 Needs to keep apt with Dr Suarez!Today 05/26/2024 : Severe SOB and YAN, at this, he was referred to ER, 911 ambulance called and [facility] Carotid ar angel stenosis 55566647 I65.29 S/p stent in 03/09On ASANot on plavixDr Bette [facility] 02/21/2024 , next in 6 months Restless legs 86530413 G 25.81 Not on requipOn lyrica 75mg in am and [address] Riojas well Ex-cigarette smoker 2810 78777 Z87.891 LDCT 09/21/2022 Get US AAA done as AAA 04/04/2023 was non diagnostic d/t bowel gas US AAA 09/18/2023 : Neg Coronary arteriosclerosis 28244746 I25.10 CAD noted On losartan 50mg daily Dr Sravan OTEROOn chlorthali done 25mg dailyDr Bette 02/20/2023 Transient cerebral ischemia 789637611 G45.9 CT Angio: 02/28/2023 : High grade stenosis, R ICA, s/p stent He does see Dr Schumacher his neurologis t, get last OV note S/p hospitaliz ation, does very well now, no residual symptoms at this timeOn ASANot on plavixNot on atorvastat in On rosuvastat in 40mg daily Liver enzy mes level above reference range 529135572 R74.8 ALP 128 03/28/2023 Get labs and US liver Addendum: 12/07/23US liver 12/03/2023 : Hepatic steatosis, triage notified Proteinuria 30047873 R80 .9 US kidney 05/25/2023 : Dr Sravan OTERO Pain of ri ght knee joint 9997238867 86121 M25.561 MRI R knee: 06/07/2023 : Dr Lemon erred to Dr Hernandez Male hypogonadism 454898 06 E29.1 get labs Serum shane min B12 below reference range 563982012 R79.89 Vitamin D deficiency 347 11897 E55.9 Get labs Melendez's esophagus 3029 47411 K22.70 On omeprazole 05/02/2023 : EGD BarrettsNe eds a follow up with GI EGD 01/04/2024 : 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 Addendum: 04/03/2024 :See case, needs to get another EGD, he was notified Chronic pain 26409842 G8 9.29 Referred to pain management 11/29/2023 ,Advised not to take any NSAIDs d/t CAD and CKD issuesOK to refill his methocarba mol to take as needed in very limited quantities , if he needs more see pain management Abdominal pain 69005444 R10.9 Seen in the ER on 09/19/2023 [...] : Case sent Acute magi rgic reaction 742814320 T78.40XA Seen in ERTreated with steroids, now is doing well Chronic ki dney disease 932163769 N18.9 On calcitriol On chlorthali done 25mg dailyOn losartan 50mg daily Sees Dr Sravan OTERO Pain of bi lateral hip joints 9852654754 3060481 M25.551 M25.552 Marcus ADAMS 01/01/2024 Screening for malignant neoplasm of prostate 995096483 Z12.5 Transition of care 27742 00042 105 Z75.8 [id number] Naila albright MD [facility] [place] [address] [facility] [place] [address] 06/04/2024 14:22:04 06/04/2024 15:03:41 Screening - NAD 965616557 Z13.9 C-scope: 05/02/2023 , Dr Dickson next [...] 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 622353571 E11.9 On metformin ER 500mg bidOn Farxiga 10mg daily but was not taking d/t Carson Jardiance 10mg dailyOn lantus 10U at bedtime Not on olmesartan Get labs Penile candidiasis 78852 8000 B37.49 No more rash noted, he is using his nystatin-t rimacinolo ne cream and states that the rash is cleared up now Hyperlipidemia 70568889 E78.5 On ASAOn atorvastat in 40mg daily Not on rosuvastat in 40mg dailyGet labs Chronic ob structive pulmonary disease 48459913 J44.9 On albuterolO n HHNsOn trelegy Needs to keep apt with Dr Suarez!Today 05/26/2024 : Severe SOB and YAN, at this, he was referred to ER, 911 ambulance called and [facility] [place] OV 06/04/2024 :Dr Suarez 06/04/2024 , keep apts with pulmonary Carotid ar angel stenosis 91362196 I65.29 S/p stent in 03/09On ASANot on plavixDr Bette [facility] 02/21/2024 , next in 6 months Restless legs 11698361 G 25.81 Not on requipOn lyrica 75mg in am and [address] Riojas well Ex-cigarette smoker 2810 76775 Z87.891 LDCT 09/21/2022 Get US AAA done as US AAA 04/04/2023 was non diagnostic d/t bowel gas US AAA 09/18/2023 : Neg Coronary arteriosclerosis 61752916 I25.10 CAD noted On losartan 50mg daily Dr Sravan palma done 25mg dailyOn metoprolol ER 50mg dailyDr Bette 02/20/2023 Transient cerebral ischemia 299870780 G45.9 CT Angio: 02/28/2023 : High grade stenosis, R ICA, s/p stent He does see Dr Schumacher his neurologis t, get last OV note S/p hospitaliz ation, does very well now, no residual symptoms at this timeOn ASANot on plavixNot on atorvastat in On rosuvastat in 40mg daily Liver enzy mes level above reference range 383476625 R74.8 ALP 128 03/28/2023 Get labs and US liver Addendum: 12/07/23US liver 12/03/2023 : Hepatic steatosis, triage notified Proteinuria 93725988 R80 .9 US kidney 05/25/2023 : Dr Hinson IJ Pain of ri ght knee joint 2205583800 60182 M25.561 MRI R knee: 06/07/2023 : Dr Lemon erred to Dr Hernandez Male hypogonadism 388745 06 E29.1 Get labs Serum shane min B12 below reference range 599076421 R79.89 Vitamin D deficiency 347 95862 E55.9 Get labs Melendez's esophagus 3029 03674 K22.70 On omeprazole 05/02/2023 : EGD DevonteNe eds a follow up with GI EGD 01/04/2024 : 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 Addendum: 04/03/2024 :See case, needs to get another EGD, he was notified Chronic pain 08672359 G8 9.29 Referred to pain management 11/29/2023 ,Advised not to take any NSAIDs d/t CAD and CKD issuesOK to refill his methocarba mol to take as needed in very limited quantities , if he needs more see pain management Abdominal pain 34620430 R10.9 Seen in the ER on 09/19/2023 [...] Does well now Acute magi rgic reaction 192960850 T78.40XA Seen in ERTreated with steroids, now is doing well Chronic ki dney disease 246288987 N18.9 On calcitriol On chlorthali done 25mg dailyOn losartan 50mg daily Sees Dr Hinson IJ Pain of bi lateral hip joints 4756725652 8199843 M25.551 M25.552 Marcus Walker PA 01/01/2024 Screening for malignant neoplasm of prostate 081322487 Z12.5 Transition of care 76814 71290 105 Z75.8 Pneumonia 906662240 J18. 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 765122749 E11.9 On metformin ER 500mg bidOn Farxiga [...] Not on olmesartan Get labs Penile candidiasis 27784 8000 B37.49 No more rash noted, he is using his nystatin-t rimacinolo ne cream and states that the rash is cleared up now Hyperlipidemia 28001374 E78.5 On ASAOn atorvastat in 40mg daily Not on rosuvastat in 40mg dailyGet labs Chronic ob structive pulmonary disease 27540152 J44.9 On albuterolO n HHNsOn trelegy Needs to keep apt with Dr Suarez!Today 05/26/2024 : Severe SOB and YAN, at this, he was referred to ER, 911 ambulance called and [facility] OV 06/04/2024 :Dr Suarez 06/04/2024 , [...] f/u on 07/08/2024 Carotid ar angel stenosis 15100288 I65.29 S/p stent in ASANot on plavixDr Bette [facility] 02/21/2024 , next in 6 months Restless legs 78399854 G 25.81 Not on requipOn lyrica 75mg in am and [address] Riojas well Ex-cigarette smoker 2810 89534 Z87.891 LDCT 09/21/2022 Get US AAA done as US AAA 04/04/2023 was non diagnostic d/t bowel gas US AAA 09/18/2023 : Neg Coronary arteriosclerosis 52296518 I25.10 CAD noted On losartan 50mg daily Dr Sravan Hodges chlorthali done 25mg dailyOn metoprolol ER 50mg dailyDr Bette 02/20/2023 Transient cerebral ischemia 697495441 G45.9 CT Angio: 02/28/2023 : High grade stenosis, R ICA, s/p stent He does see Dr Schumacher his neurologis t, get last OV note S/p hospitaliz ation, does very well now, no residual symptoms at this timeOn ASANot on plavixNot on atorvastat in On rosuvastat in 40mg daily Liver enzy mes level above reference range 081190179 R74.8 ALP 128 03/28/2023 Get labs and US liver Addendum: 12/07/23US liver 12/03/2023 : Hepatic steatosis, triage notified Proteinuria 86764516 R80 .9 US kidney 05/25/2023 : Dr Sravan OTERO Pain of ri ght knee joint 6517906987 88514 M25.561 MRI R knee: 06/07/2023 : Dr Lemon erred to Dr Hernandez Male hypogonadism 139507 06 E29.1 Get labs Serum shane min B12 below reference range 654972964 R79.89 Vitamin D deficiency 347 84670 E55.9 Get labs Melendez's esophagus 3029 12616 K22.70 On omeprazole 05/02/2023 : EGD BarrettsNe eds a follow up with GI EGD 01/04/2024 : 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 Addendum: 04/03/2024 :See case, needs to get another EGD, he was notified Chronic pain 78328985 G8 9.29 Referred to pain management 11/29/2023 ,Advised not to take any NSAIDs d/t CAD and CKD issuesOK to refill his methocarba mol to take as needed in very limited quantities , if he needs more see pain management Abdominal pain 15947550 R10.9 Seen in the ER on 09/19/2023 [...] Does well now Acute magi rgic reaction 498172353 T78.40XA Seen in ERTreated with steroids, now is doing well Chronic ki dney disease 800585860 N18.9 On calcitriol On chlorthali done 25mg dailyOn losartan 50mg daily Sees Dr Sravan OTERO Pain of bi lateral hip joints 1948036495 3784637 M25.551 M25.552 Marcus ADAMS 01/01/2024 Pneumonia 038381944 J18. 9 S/p d/c from [facility] 05/30/2024 Started on Lantus 10U q hsCBC: 05/30/2024 CMP: 05/30/2024 : BUN 33, Gluc 353 [id number] Duncan Suarez MD [facility] [address] 07/08/2024 16:41:56 07/09/2024 11:52:16 Solitary nodule of lung 078823117 R91.1 Mild chron ic obstructive pulmonary disease 089574598 J44.9 Posterior rhinorrhea 758 04201 R09.82 [id number] Bailey Hernandez MD [facility] [place] [address] [place] [address] 07/16/2024 10:31:14 07/16/2024 11:32:17 Pain of right knee joint 4383037377 26434 M25.983 [id number] Duncan Suarez MD [facility] [address] [address] 08/27/2024 08:36:07 08/27/2024 16:32:18 Solitary nodule of lung 645184504 R91.1 Mild chron ic obstructive pulmonary disease 010683619 J44.9 Posterior rhinorrhea 758 03338 R09.82 Dysphonia 00824040 R49.9 [id number] Naila albright MD [facility] [address] [facility], [facility] [address] [place] [address] 10/07/2024 11:44:35 10/07/2024 12:32:19 Screening - NAD 873141151 Z13.9 C-scope: 05/02/2023 , Dr Dickson next [...] 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 319051425 E11.9 On metformin ER 500mg bidNot on [...] Not on olmesartan Get labs Penile candidiasis 45396 8000 B37.49 No more rash noted, he is using his nystatin-t rimacinolo ne cream and states that the rash is cleared up now Hyperlipidemia 68246939 E78.5 On ASAOn atorvastat in 40mg daily Not on rosuvastat in 40mg dailyGet labs Chronic ob structive pulmonary disease 25308767 J44.9 On albuterolO n HHNsOn trelegy Needs to keep apt with Dr Suarez!Today 05/26/2024 : Severe SOB and YAN, at this, he was referred to ER, 911 ambulance called and [facility] OV 06/04/2024 :Dr Suarez 06/04/2024 , [...] to see ENT Carotid ar angel stenosis 72935153 I65.29 S/p stent in 03/09On ASANot on plavixDr Bette [facility] 02/21/2024 , next in 6 months Restless legs 86585683 G 25.81 Not on requipNot on lyrica 75mg in am and [address] Riojas well Ex-cigarette smoker 2810 19387 Z87.891 LDCT 09/21/2022 Get US AAA done as US AAA 04/04/2023 was non diagnostic d/t bowel gas US AAA 09/18/2023 : Neg Coronary arteriosclerosis 54023001 I25.10 CAD noted On losartan 50mg daily Dr Sravan palam done 25mg dailyOn metoprolol ER 50mg dailyDr Bette 02/20/2023 Referred 10/07/2024 Transient cerebral ischemia 349393190 G45.9 CT Angio: 02/28/2023 : High grade stenosis, R ICA, s/p stent He does see Dr Schumacher his neurologis t, get last OV note S/p hospitaliz ation, does very well now, no residual symptoms at this timeOn ASANot on plavixNot on atorvastat in On rosuvastat in 40mg daily Liver enzy mes level above reference range 516006484 R74.8 ALP 128 03/28/2023 Get labs and US liver Addendum: 12/07/23US liver 12/03/2023 : Hepatic steatosis, triage notified Proteinuria 30876266 R80 .9 US kidney 05/25/2023 : Dr Hinson IJ Pain of ri ght knee joint 5039316354 59037 M25.561 MRI R knee: 06/07/2023 : Dr Lemon erred to Dr Hernandez Male hypogonadism 453439 06 E29.1 Get labs Serum shane min B12 below reference range 419010088 R79.89 Vitamin D deficiency 347 73649 E55.9 Get labs Melendez's esophagus 3029 90695 K22.70 On omeprazole 05/02/2023 : EGD AlsNe eds a follow up with GI EGD 01/04/2024 : 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 Addendum: 04/03/2024 :See case, needs to get another EGD, he was notified Chronic pain 69955741 G8 9.29 Referred to pain management 11/29/2023 ,Advised not to take any NSAIDs d/t CAD and CKD issuesOK to refill his methocarba mol to take as needed in very limited quantities , if he needs more see pain management Abdominal pain 50963477 R10.9 Seen in the ER on 09/19/2023 [...] Does well now Acute magi rgic reaction 686331101 T78.40XA Seen in ERTreated with steroids, now is doing well Chronic ki dney disease 859306465 N18.9 On calcitriol On chlorthali done 25mg dailyOn losartan 50mg daily Sees Dr Hinson IJ Pain of bi lateral hip joints 3050268428 1649706 M25.551 M25.552 Marcus ADAMS 01/01/2024 Dysphonia 78700432 R49.9 Was referred to ENT on 08/27/[address] Suarez's note Pain of le ft shoulder joint 6862031474 7176461 M25.512 Slipped and fell on ice 10 days ago, unable to lift L shoulder, s/p ER visit at [facility] start on meloxicam and refer to ortho [id number] Bailey Hernandez MD [facility] [place] 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 950557944 E11.9 On metformin ER 500mg bidNot on [...] Not on olmesartan Get labs Penile candidiasis 38284 8000 B37.49 On nystatin-t rimacinolo ne cream as needed Hyperlipidemia 59416357 E78.5 On ASAOn atorvastat in 40mg daily Not on rosuvastat in 40mg dailyGet labs Chronic ob structive pulmonary disease 10662469 J44.9 On albuterolO n HHNsOn trelegy Needs to keep apt with Dr Suarez!Today 05/26/2024 : Severe SOB and YAN, at this, he was referred to ER, 911 ambulance called and [facility] OV 06/04/2024 :Dr Suarez 06/04/2024 , [...] :On albuterolO n anoroOn ipratropiu mOn trelegyDr Daniela last 08/27/[address] Mcneal last OV 09/30/2024 , next apt on 11/25/2024 Carotid ar angel stenosis 81186445 I65.29 S/p stent in 03/09On ASANot on plavixDr Bette SL 02/21/2024 , next in 6 monthsDr Bette [facility] 08/11/2024 , f/u in 6 weeks and was to get US renal artery Restless legs 80216598 G 25.81 Not on requipNot on lyrica 75mg in am and [address] Riojas well Ex-cigarette smoker 2810 98627 Z87.891 LDCT 09/21/2022 Get US AAA done as US AAA 04/04/2023 was non diagnostic d/t bowel gas US AAA 09/18/2023 : Neg Coronary arteriosclerosis [id number] I25.10 CAD noted On losartan 50mg daily Dr Sravan OTERO, is not taking this as per his historyOn chlorthali done 25mg dailyOn metoprolol ER 50mg daily, refilled 11/20/2024 , was not takingDr Bette 02/20/2023 Referred 10/07/2024 , 11/20/2024 Keep BP Transient cerebral ischemia 180168416 G45.9 CT Angio: 02/28/2023 : High grade stenosis, R ICA, s/p stent He does see Dr Schumacher his neurologis t, get last OV note S/p hospitaliz ation, does very well now, no residual symptoms at this timeOn ASANot on plavixOn atorvastat in renewed 11/20/2024 Not on rosuvastat in 40mg daily Liver enzy mes level above reference range 849534787 R74.8 ALP 128 03/28/2023 Get labs and US liver Addendum: 12/07/23US liver 12/03/2023 : Hepatic steatosis, triage notified Proteinuria 44593066 R80 .9 US kidney 05/25/2023 : Dr Sravan OTERO Pain of ri ght knee joint 3319270215 82817 M25.561 MRI R knee: 06/07/2023 : Dr Wilkins Male hypogonadism 630776 06 E29.1 Get labs Serum shane min B12 below reference range 244033376 R79.89 Vitamin D deficiency 347 87759 E55.9 Get labs Melendez's esophagus 3029 17741 K22.70 On omeprazole 05/02/2023 : EGD BarrettsNe eds a follow up with GI EGD 01/04/2024 : 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 Addendum: 04/03/2024 :See case, needs to get another EGD, he was notified Chronic pain 47588017 G8 9.29 Referred to pain management 11/29/2023 ,Advised not to take any NSAIDs d/t CAD and CKD issuesOK to refill his methocarba mol to take as needed in very limited quantities , if he needs more see pain management Abdominal pain 16921682 R10.9 Seen in the ER on 09/19/2023 [...] Does well now Acute magi rgic reaction 598210640 T78.40XA Seen in ERTreated with steroids, now is doing well Chronic ki dney disease 696686209 N18.9 On calcitriol On chlorthali done 25mg dailyOn losartan 50mg daily Sees Dr Sravan OTERO Pain of bi lateral hip joints 1087454375 1866182 M25.551 M25.552 Marcus Walker PA 01/01/2024 Dysphonia 71616470 R49.9 Was referred to ENT on 08/27/[address] Suarez's note Pain of le ft shoulder joint 1949607331 5767646 M25.512 Slipped and fell on ice 10 days ago, unable to lift L shoulder, s/p ER visit at [facility] start on meloxicam and refer to [...] remain a moderate risk for this procedure [id number] Bailey Hernandez MD [facility] [place] [address] [place] [address] 12/03/2024 14:47:58 12/03/2024 16:19:34 Pain of left shoulder joint 5499857715 8294625 M25.512 Health Concerns Section Related Observation LastModified by Organization Detai ls LastModified Time None Recorded Concern Status LastModified by Organization Details LastModified Time None Recorded Advance Directives Directive Y: Patient stated he needs t o update since . Recommended working with an trademark attorney. Payers Encounter Date Sequence Insurance Name Policy Number Policy Santana Covered Member ID Santana Member ID Guarantor Name 08/27/[address] [facility] - MEDICARE COMPLETE - CHOICE PLAN 2 (MEDICARE REPLACEMENT REGIONAL PPO) [id number] Navid Sanchezkey [id number] Navid Rodríguez 10/07/[address] [facility] - MEDICARE COMPLETE - CHOICE PLAN 2 (MEDICARE REPLACEMENT REGIONAL PPO) [id number] Navid Sanchezkey [id number] Navid Rodríguez 10/08/[address] [facility] - MEDICARE COMPLETE - CHOICE PLAN 2 (MEDICARE REPLACEMENT REGIONAL PPO) [id number] Navid Orellana Laurakey [id number] Navid Rodríguez 11/20/[address] [facility] - MEDICARE COMPLETE - CHOICE PLAN 2 (MEDICARE REPLACEMENT REGIONAL PPO) [id number] Navid Sreekanth Sanchezenskey [id number] Navid Orellana Laurajudi 12/03/[address] [facility] - MEDICARE COMPLETE - CHOICE PLAN 2 (MEDICARE REPLACEMENT REGIONAL PPO) [id number] Navid Sanchezkey [id number] Navid Rodríguez Notes Date Note Type Note Provider Name and Address Organization Details Recorded Time 08/27/2024 text/html Primary care/Referring provider: Naila Moreno MD CC: I have hoarseness of voice and I could not sing in the senior living. Patient is here to go over his mild COPD management. Initial development of shortness of breath: 2011Duration of shortness of breath: 13 yearsCondition of shortness of breath: stableTiming of shortness of breath: morningFrequency: up to 3 times a dayLimits activities: yesAggravating factors: walking, doing yard workAlleviating factors: rest Modified [employer] [place] (mMRC) Dyspnea Scale - Grade 1Grade 0 [...] uoneb since 2016 Spiriva Handihaler once daily 5503-0102 Symbicort HFA 160/4.5 mcg 2 puffs BID [...] yesEdema: no Environmental exposures:Nicotine smoke: 1 ppd 8012-2628 (quit 12 years in between) = 41 [...] chance of dozing. Duncan Suarez MD [address] [facility], [address], [place], [address], [place] - [facility] [employer] 08/27/2024 09:34:58 10/07/2024 text/html OV 03/28/2023: H ere to establish carePast Hx:HLDCOPDDMIITIARevi ewed social family and surgical historyHere to discuss above, admitted to [facility] on 02/28/2023 for TIA with L [...] for UTI, seen in the ER at [facility] 09/24/2023, treated with antibiotic and also did [...] OV 05/26/2024: Here post hosp, d/c from [facility] 05/14/2024 for SOB, today very SOB and has ongoing cough, he is extremely fatigued, c/o wheezing also, states that he is worse since his d/c from [facility] on 05/14/2024 OV 06/04/2024: Here for his [...] he did see Dr Daniela Moreno MD [address] [place] [address], [address], [place], [address], [facility] [employer] 10/10/2024 11:49:03 11/20/2024 text/html OV 03/28/2023: H ere to establish carePast Hx:HLDCOPDDMIITIARevi ewed social family and surgical historyHere to discuss above, admitted to [facility] on 02/28/2023 for TIA with L [...] for UTI, seen in the ER at [facility] 09/24/2023, treated with antibiotic and also did [...] OV 05/26/2024: Here post hosp, d/c from [facility] 05/14/2024 for SOB, today very SOB and has ongoing cough, he is extremely fatigued, c/o wheezing also, states that he is worse since his d/c from [facility] on 05/14/2024 OV 06/04/2024: Here for his [...] still has shoulder pain Naila Moreno MD [address] [place] [address], [address], [place], [address], [place] - [facility] 01/06/2025 14:51:30
--- OUTSIDE RECORDS SUMMARY | 2025-02-06 10:56 | XMS_ITS | Clinical Summary ---
Author Organization [facility] Address [address] [place] [address] Care Team Providers Care Medical Records Administrator Name Role Phone Unavailable Primary Care Provider Unavailabl e Source Comments [facility],non-owned Affiliates and Associated Physician Practices is amultiple site organization consisting of ambulatory clinics and hospital sitesin [place], [place], [place] and [place]. This disclosure is being madepursuant to the Care Everywhere program and may not contain all information available regarding this patient. Last updated 18.[facility] Allergies No known active allergies Medications * [...] Date Recorded PHQ2 TOTAL SCORE 0 03/07/2023 [facility] - Occupational [...] place to sleep or slept in a group home (including now)? No 03/03/2023 Sex and Gender [...] this topic Medical Devices Implanted Type Area Autocad Detailer Device Identifier Shelf Expiration Date Model / Serial / Lot Stent Enroute Uber Flx 7mm .065in 40mm Implanted:Qty : 1 on 03/05/2023 by Betty Crane DO at [facility] Stent - Vascular Right: Arterial [email or web address] [facility] 04/16/2025 [id number] / / [id number] Description:IMPLANTED RIGHT CAROTID ARTERY Insurance [facility] MANAGED MEDICARE ADV Advance Directives * Full Code (Latest Code Status on File) Date Activated Date Inactivated Comments 03/03/2023 5:15 AM 03/08/2023 8:02 PM
--- OUTSIDE RECORDS SUMMARY | 2025-02-06 10:56 | XMS_ITS ---
Author Organization [facility] Address [address] [place] [address] Care Team Providers Care Demolition Expert Name Role Phone SravanHemalathaOwen Unavailable [phone] MEDICATIONS Medication SIG (Take, Route, Frequency, Duration) Notes Start Date End Date Status Calcitriol 0.25 MCG 1 capsule Orally corrine ry other day for 90 05/30/2023 02/24/2024 Active Losartan Potassium 50 MG 1 tablet Orally Once a day for 90 05/30/2023 Active Ergocalciferol 1.25 MG (94995 UT) 1 capsule Orally Once a week for 90 day(s) 08/29/2023 05/25/2024 Active SOCIAL HISTORY Sex Assigned At : Social History Observation Description Sex Assigned At Male Encounters Encounter Location Date Provider Diagnosis [place] [facility] [address] [facility] [address] [place] [address] 01/23/2024 Owen Hinson Chronic kidney disease, stage [...] * CRISS CALERODOB: [birth year] (74 yo M)Acc No.[id number]:01/23/2024 Progress Notes Patient: CRISS CALERO Provider: MD JOSÉ MIGUEL, Fabian, F.A.S.N. :1950 Age:73 Y Sex:Male Date:01/23/2024 Address:[address] [place] [address] Subjective: * Chief Complaints: * * Medical History: * Medications: Taking Losartan Potassium 50 MG Tablet 1 tablet Orally Once a day , Taking Calcitriol 0.25 MCG Capsule 1 capsule Orally every other day , stop date 02/24/2024, Taking Ergocalciferol 1.25 MG (09912 UT) Capsule 1 capsule Orally Once a week , stop date 05/25/2024 Objective: Assessment: * Assessment: 1. Chronic kidney disease, stage 2 (mild) - N18.2 2. Other proteinuria - R80.8 3. Type 2 diabetes mellitus with hyperglycemia - E11.65 4. Chronic obstructive pulmonary disease with (acute) exacerbation - J44.1 5. Essential hypertension - I10 Plan: * Treatment: * Billing Information: * Visit Code: 31790 Office Visit, Est Pt., Level 4. * Procedure Codes: * Sign off status: Pending * Provider: MD JOSÉ MIGUEL, Fabian, F.A.S.N. Date: 01/23/2024
--- OUTSIDE RECORDS SUMMARY | 2025-02-06 10:56 | XMS_ITS ---
Author Organization [facility] Address [address] [address] [place] [address] Care Team Providers Care Quality Compliance Manager Name Role Phone HinsonHemalathaOwen Unavailable [phone] MEDICATIONS Medication SIG (Take, Route, Frequency, Duration) Notes Start Date End Date Status Losartan Potassium 50 MG 1 tablet Orally Once a day for 90 05/30/2023 Active SOCIAL HISTORY Sex Assigned At : Social History Observation Description Sex Assigned At Male Encounters Encounter Location Date Provider Diagnosis [place] [facility] [address] [facility] [address] [place] [address] 08/01/2024 Owen Hinson Chronic kidney disease, stage [...] * CRISS CALERODOB: [birth year] (74 yo M)Acc No.[id number]:08/01/2024 Progress Notes Patient: CRISS CALERO Provider: MD JOSÉ MIGUEL, F.A.C.P, F.A.S.N. :1950 Age:74 Y Sex:Male Date:08/01/2024 Address:[address] [place] [address] Subjective: * Chief Complaints: * * Medical [...] Treatment: * Billing Information: * Visit Code: 33001 Office Visit, Est Pt., Level 4. * Procedure Codes: * Sign off status: Pending * Provider: MD JOSÉ MIGUEL, F.A.C.P, F.A.S.N. Date: 08/01/2024
--- OUTSIDE RECORDS SUMMARY | 2025-02-06 10:56 | XMS_ITS | Patient Health Record ---
Author Organization [facility] Address [address] [place] [address] Care Team Providers Care Movers Name Role Phone Owen Hinson Unavailable [phone] REASON FOR REFERRAL No Information MEDICATIONS Medication [...] Hyperglycemia due to type 2 diabetes mellitus (221407470542456 ) Problem Chronic obstructive pulmonary disease with (acute) exacerbation (J44.1) Active confirmed Acute exacerbation of chronic obstructive airways disease (538861943) Problem Chronic kidney disease, stage 2 (mild) (N18.2) Active confirmed Chronic kidne y disease stage 2 (262620447) Problem Other proteinuria (R80.8) Active confirmed Proteinuria (46149150) Problem Essential hypertension (I10) Active confirmed Essential hypertension (14400338) Encounters Encounter Location Date Provider Diagnosis [place] [facility] [address] [address] 08/01/2024 Owen Hinson Chronic kidney disease, stage 2 (mild) N18.2 ; Other proteinuria R80.8 ; Type 2 diabetes mellitus with hyperglycemia E11.65 ; Chronic obstructive pulmonary disease with (acute) exacerbation J44.1 and Essential hypertension I10 [facility] [address] [address] 08/01/2024 Owen Hinson ASSESSMENTS Encounter Date Diagnosis [...]
== END 2025-02-06 10:33 | disposition home or self-care (01) ==
LOC: ANHSURGERY 10:54
PROVIDERS: PCP Internal Medicine; Visit Provider Orthopaedic Surgery
DX: M75.122 Complete rotator cuff tear or rupture of left shoulder, not specified as traumatic (principal)
CPT/HCPCS: 87081

== ENCOUNTER 2025-02-10 15:41 | Outpatient (CLI) | payer MEDICARE, SELFPAY ==
--- OUTSIDE RECORDS SUMMARY | 2025-02-10 15:44 | XMS_ITS | Encounter Summary ---
Author Organization [facility] Waldron [facility] Address [address] [place] [address] Care Team Providers Care Pizza Hut Assistant Name Role Phone Unavailable Primary Care Provider Unavailabl e Reason for Referral * Nuclear Medicine (Routine) - Authorized Specialty Diagnoses / Procedures Referred By Contac t Referred To Contact Diagnoses Cancer, metastatic to bone (CMS/HCC) Procedures NM BONE SCAN WHOLE BODY Maxwell Oleary MD [address] [phone] Phone: tel: fax: [place] [phone] Referral ID Status Reason Start Date Expiration Date V isits Requested Visits Authorized [id number] Authorized [facility] CTS 02/10/2025 03/13/2026 1 1 * CT Scan (Routine) - Closed Specialty Diagnoses / Procedures Referred By Contac t Referred To Contact Diagnoses Cancer, metastatic to bone (CMS/HCC) Procedures CT CHEST ABDOMEN PELVIS W CONT Maxwell Oleary MD [address] [facility] [address] [place] [address] Phone: tel: fax: [place] [phone] Referral ID Status Reason Start Date Expiration Date V isits Requested Visits Authorized [id number] Closed [facility] CTS 02/10/2025 03/13/2026 1 1 Encounter Details Date Type Department Care Team (Late st Contact Info) Description 02/10/2025 3:00 PM CDT Office Visit [facility] Oncology and Hematology [facility] [address] [place] [address] Maxwell Oleary MD [address] [facility] [address] [place] [address] Cancer, metastatic to bone (CMS/HCC) (Primary Dx) Social History Tobacco Use Types Packs/Day Years Used Date Smoking Tobacco: Former Cigarettes 1 45 0 02/15/1978 - 02/15/2023 Smokeless Tobacco: Never Tobacco Cessation:Counseling Given: Not Answered Alcohol Use Standard Drinks/Week Comments Not Currently 0 (1 standard drink = 0.6 oz pur e alcohol) Sex and Gender Information Value Date Recorded Sex Assigned at Not on file Legal Sex Male 8:07 PM CDT Gender Identity Not on file Sexual Orientation Not on file documented as of this encounter Last Filed Vital Signs Vital Sign Reading Time Taken Comments Blood Pressure 151/85 02/10/2025 2:56 PM CDT Pulse 62 02/10/2025 2:49 PM CDT Temperature 36.9 C (98.4 F) 02/10/2025 2:49 PM CDT Respiratory Rate 16 02/10/2025 2:49 PM CDT Oxygen Saturation 97% 02/10/2025 2:49 PM CDT Inhaled Oxygen Concentration - - Weight 58.2 kg (128 lb 6.4 oz) 02/10/2025 2:49 P M CDT Height 162.6 cm (5' 4) 02/10/2025 2:49 PM CDT Body Mass Index 22.04 02/10/2025 2:49 PM CDT documented in this encounter Plan of Treatment Upcoming Encounters Date Type Department Care Team (Late st Contact Info) Description 02/25/2025 4:30 PM CDT Telephone Check Up [facility] Oncology and Hematology [facility] [address] [place] [address] Maxwell Oleary MD [address] [facility] [address] [place] [address] Scheduled Orders Name Type Priority Associated Diagnoses Orde r Schedule CBC WITH DIFFERENTIAL Lab Stat Cancer, metastatic to bone (CMS/HCC) Expected: 02/10/2025, Expires: 02/10/2026 COMPREHENSIVE METABOLIC PANEL Lab Stat Cancer, metastatic to bone (CMS/HCC) Expected: 02/10/2025, Expires: 02/10/2026 PROTEIN ELECTROPHORESIS W/REFLEX,SERUM Lab Routine Cancer, metastatic to bone (CMS/HCC) Expected: 02/10/2025, Expires: 02/10/2026 PSA Lab Routine Cancer, metastatic to bone (CMS/HCC) Expected: 02/10/2025, Expires: 02/10/2026 CT CHEST ABDOMEN PELVIS W CONT Imaging Routine Cancer, metastatic to bone (CMS/HCC) Expected: 02/17/2025, Expires: 02/10/2026 NM BONE SCAN WHOLE BODY Imaging Routine Cancer, metastatic to bone (CMS/HCC) Expected: 02/17/2025, Expires: 02/10/2026 documented as of this encounter Visit Diagnoses Diagnosis Cancer, metastatic to bone (CMS/HCC)- Primary Secondary malignant neoplasm of bone and bone marrow documented in this encounter
--- OUTSIDE RECORDS SUMMARY | 2025-02-10 15:44 | XMS_ITS ---
Author Organization [facility] Address [address] [place] [address] Care Team Providers Care High [employer] Learning Support Teacher Name Role Phone SravanHemalathaOwen Unavailable [phone] Medications Medication SIG (Take, Route, Frequency, Duration) Notes Start Date End Date Status Losartan Potassium 50 MG 1 tablet Orally Once a day for 90 05/30/2023 Active Ergocalciferol 1.25 MG (62375 UT) 1 capsule Orally Once a week for 90 day(s) 08/29/2023 05/25/2024 Active Calcitriol 0.25 MCG 1 capsule Orally corrine ry other day for 90 05/30/2023 02/24/2024 Active Social History Sex Assigned At : Social History Observation Description Sex Assigned At Male Encounters Encounter Location Date Provider Diagnosis [place] [facility] [address] [facility] [address] [place] [address] 11/21/2023 Owen Hinson Chronic kidney disease, stage 2 (mild) N18.2 ; Other proteinuria R80.8 ; Type 2 diabetes mellitus with hyperglycemia E11.65 ; Chronic obstructive pulmonary disease with (acute) exacerbation J44.1 and Essential hypertension I10 Assessments Encounter Date Diagnosis (ICD Code) Assessment Notes Treatment Notes Treatment Clinical Notes Section Notes 11/21/2023 Chronic kidney disease, stage 2 (mild) (ICD-10 - N18.2) 11/21/2023 Other proteinuria (ICD-10 - R80.8) 11/21/2023 Type 2 diabetes mellitus with hyperglycemia (ICD-10 - E11.65) 11/21/2023 Chronic obstructive pulmonary disease with (acute) exacerbation (ICD-10 - J44.1) 11/21/2023 Essential hypertension (ICD-10 - I10) Plan Of Treatment No Information Progress Notes * CRISS CALERODOB: [birth year] (74 yo M)Acc No.[id number]:11/21/2023 Progress Notes Patient: CRISS FORRESTER Provider: Yao GARCIA MD, Fabian, F.A.S.N. :1950 A ge:73 Y S ex:Male Date:11/21/2023 Address:[address] [place] [address] Subjective: * Chief Complaints: * * Medical History: * Medications: T aking Losartan Potassium 50 MG Tablet 1 tablet Orally Once a day , Taking Calcitriol 0.25 MCG Capsule 1 capsule Orally every other day , stop date 02/24/2024, Taking Ergocalciferol 1.25 MG (04297 UT) Capsule 1 capsule Orally Once a week , stop date 05/25/2024 Objective: * Vitals: Assessment: * Assessment: 1. C hronic kidney disease, stage 2 (mild) - N18.2 2 . O ther proteinuria - R80.8 3 . T ype 2 diabetes mellitus with hyperglycemia - E11.65 ?4. C hronic obstructive pulmonary disease with (acute) exacerbation - J44.1 5 . E ssential hypertension - I10 Plan: * Treatment: * Billing Information: * Visit Code: 47262 Office Visit, Est Pt., Level 4. * Procedure Codes: * Electronic signature of Marisela Hinson MD on 02/10/2025 at 03:44 PM CDT Sign off status: Pending * Provider: Yao GARCIA MD, Fabian, F.A.S.N. Date: 0 11/21/2023 Generated for Printing/Faxing/eTransmitting on: 0 02/10/2025 03:44 PM CDT
--- OUTSIDE RECORDS SUMMARY | 2025-02-10 15:44 | XMS_ITS | Clinical Summary ---
Author Organization [facility] Address [address] [facility] [address] [address] Care Team Providers Care Porcelain Enamel Sprayer Name Role Phone Naila Moreno MD Primary Care Provider [phone] Social History Tobacco Use Types Packs/Day Years [...] patient's age to complete this topic Insurance [facility] Medicare Care Teams Porcelain Enamel Sprayer Relationship Specialty Start Date End Date Naila Moreno MD [address] [place] [address] PCP - General Internal Medicine 11/30/23
--- OUTSIDE RECORDS SUMMARY | 2025-02-10 15:44 | XMS_ITS | Clinical Summary ---
Author Organization [facility] Address [address] [place] [address] Phone Care Team Providers Care Amusement Equipment Operator Name Role Phone Unavailable Primary Care Provider Unavailabl e Allergies No known active allergies Medications methocarbamoL (ROBAXIN) 750 mg tablet Take 750 mg by mouth 3 times daily. Active atorvastatin (LIPITOR) 40 mg tablet Take 40 mg by mouth daily. Active omeprazole (PriLOSEC) 40 mg Capsule, Delayed Release(E.C.) Take 40 mg by mouth daily. Active calcitRIOL (ROCALTROL) 0.25 mcg capsule Take 0.25 mcg by mouth daily. Active metFORMIN (GLUCOPHAGE XR) 500 mg Extended Release 24 hour tablet Take 500 mg by mouth 2 times daily with meals. Active albuterol (PROVENTIL,TENISHA JOANIE) 2.5 mg/0.5 mL Solution for Nebulization Take 2.5 mg by inhalation one time only. Active fluticasone-umec lidinium-vilante rol (Trelegy Ellipta) 200-62.5-25 mcg Disk with Device Take 1 Puff by inhalation daily. Active losartan (COZAAR) 25 mg tablet Take 25 mg by mouth daily. Active lansoprazole (PREVACID) 30 mg Capsule, Delayed Release(E.C.) Take 30 mg by mouth daily. Active oxyCODONE (ROXICODONE) 5 mg tablet Take 5 mg by mouth every 4 hours as needed for Pain. Active meloxicam (MOBIC) 7.5 mg tablet Take 7.5 mg by mouth daily. Active insulin NPH human (HumuLIN N,NovoLIN N) 100 unit/mL pen syringe Inject 20 Units by subcutaneous injection daily before breakfast. Active pregabalin (LYRICA) 75 mg Capsule Take 75 mg by mouth. Active Active Problems No known active problems Encounters Date Type Department Care Team Description 02/10/2025 3:00 PM CDT Office Visit [facility] Oncology and Hematology [facility] [address] [place] [address] Maxwell Oleary MD Cancer, metastatic to bone (CMS/HCC) (Primary Dx) from Last 3 Months Family History Medical History Relation Name Comments Colon Cancer Brother 1 Pancreatic Cancer Brother 2 No Known Problems Brother 3 Diabetes Child 1 Diabetes Child 2 Diabetes Child 3 Heart Disease Father Breast Cancer Sister 1 Heart Disease Sister 1 No Known Problems Sister 2 Relation Name Status Comments Brother 1 Alive Brother 2 Brother 3 Child 1 Alive Child 2 Alive Child 3 Alive Father Mother Sister 1 Alive Sister 2 Social History Tobacco Use Types Packs/Day Years [...] Mass Index 22.04 02/10/2025 2:49 PM CDT Plan of Treatment Upcoming Encounters Date Type Department Care Team (Late st Contact Info) Description 02/25/2025 4:30 PM CDT Telephone Check Up [facility] Oncology and Hematology [facility] [address] [place] [address] Maxwell Oleary MD [address] [facility] [address] [place] [address] Health Maintenance Due Date Last Done Comments DTAP/TDAP/TD VACCINES (1 - Tdap) 1971 COLORECTAL SCREENING 1997 Colorectal Cancer Screening 1997 FIT-DNA Q 3 years 1997 FIT/FOBT Q 1 year 1997 Flex Sig/CT Colonography Q 5 years 1997 PNEUMOCOCCAL VACCINE 50+ YEARS (1 of 1 - PCV) 03/10/20 02 ZOSTER VACCINE (1 of 2) 2002 INFLUENZA VACCINE (#1) 2024 Medicare Advantage (ID) Prev entative Visit/Annual Wellness Visit 09/17/2024 RSV VACCINE (60+ or ) (1 - 1-dose 75+ series) 2027 Insurance
--- OUTSIDE RECORDS SUMMARY | 2025-02-10 15:45 | XMS_ITS | Data Portability ---
Author Organization [facility], Main Office Address [address] [place] [address] Care Team Providers Care Toilet And Laundry Soap Supervisor Name Role Phone CAITLIN MORENO Primary Care Provider CAITLIN MORENO Referring Provider CROW BALDERRAMA Aircraft Restorer DUNCAN SUAREZ Tool Filer MIGEL AMOS Operating Room Tech JEROD FLETCHER General Surgeon [phone] BAILEY HERNANDEZ Orthopedic Surgeon Assessment Encounter Date Assessment Date Assessment LastModified by Organization Details LastModified Time 08/27/2024 08/27/2024 Assessment: Dysphonia Postnasal drip Nicotine smoke: 1 ppd 2187-2039 (quit 12 years in between) = 41 pack years Mild COPD RUL nodule Hypertension Plan: The following were reviewed and explained to the patient: Chest CT 09/21/22 7 mm RUL nodule Chest CT 03/07/24 no acute abnormality Chest CT 05/13/24 5 mm RUL nodule [facility] hospitalization 05/13/24 - 05/14/24 discharged on azithromycin, prednisone, Trelegy and albuterol inhalers [facility] hospitalization 05/26/24 - 05/30/24 Lab data 06/04/24 [...] positive Maribel. Positive Neer and Brandon. Positive [place]'s. X-rays of the shoulder were reviewed, demonstrating [...] Positive Maribel. Positive Neer and Brandon. Positive [place]'s. Motor: 5/5 strength. Limited by pain Sensation: [...] one, free + total, serum 2024 025 [email or web address] [facility] - Outpatient Lab, [address] [place] [address], [address], 11/20/2024 12:46:04 lipid panel, serum 2024 025 [email or web address] Not available 11/20/2024 12:46:03 CMP, serum or plasma 2024 025 PAZ Not available 12/16/2024 20:02:46 CBC w/ auto diff 2024 025 PAZ Not available 12/16/2024 20:02:46 TSH + free T4, serum 2024 025 [email or web address] Not available 11/20/2024 12:46:04 vitamin D, 25-hydrox y, total, serum 2024 025 [email or web address] [facility] - Outpatient Lab, [address] [place], [address], 11/20/2024 12:46:04 microalbu min, urine 2024 025 Not available 11/20/2024 12:46:02 glycohemo globin, total, blood 2024 025 [email or web address] Not available 11/20/2024 12:46:02 vitamin B12 + folate, serum or blood 2024 025 [email or web address] [facility], [address] [place], [address], 11/20/2024 12:46:04 testoster one, free + total, serum 2024 025 [email or web address] [facility], [address] [place], [address], 10/07/2024 12:29:42 lipid panel, serum 2024 025 [email or web address] Not available 10/07/2024 12:29:40 CMP, serum or plasma 2024 025 [email or web address] Not available 10/07/2024 12:29:41 CBC w/ auto diff 2024 025 [email or web address] Not available 10/07/2024 12:29:41 TSH + free T4, serum 2024 025 Not available 10/07/2024 12:29:41 vitamin D, 25-hydrox y, total, serum 2024 025 [facility], [address] [place], [address], 10/07/2024 12:29:42 microalbu min, urine 2024 025 Not available 10/07/2024 12:29:39 glycohemo globin, total, blood 2024 025 [email or web address] Not available 10/07/2024 12:29:40 vitamin B12 + folate, serum or blood 2024 025 [facility] - Outpatient Lab, [address] [place], [address], 10/07/2024 12:29:42 gram stain, sputum [email or web address] [place] [address] - Outpatient Lab, [address] [place], [address], 09/04/2024 15:26:10 culture, sputum 2023 024 [facility], [address] [place], [address], 08/28/2024 09:23:[address] referral - Please call patient to schedule an appointme nt. Thank you. 2024 025 NEO Hare MD, [address] [facility], [address], [place], [address], 11/27/2024 11:20:42 nephrolog ist referral - Please call patient to schedule an appointme nt. Thank you. 2024 025 NEO Hinson MD (Nephrology, [address], [address], [place], [address], 11/27/2024 16:30:50 vascular surgeon referral - Please call patient to schedule an appointme nt. Thank you. 2024 025 [place], [address], [address], [place], [address], 11/27/2024 10:45:31 orthopedi c surgeon referral - Please call patient to schedule an appointme nt. Thank you. 2024 025 NEO Wilkins, [address], [address], [place], [address], 11/27/2024 10:40:31 gastroent erologist referral - Please call patient to schedule an appointme nt. Thank you. 2024 025 [facility], [address], [address], [place], [address], 12/01/2024 10:10:38 podiatris t referral - Please call patient to schedule an appointme nt. Thank you. 2024 025 PAZ Crow Joanna DPM, [address], [address], [place], [address], 12/04/2024 10:59:02 cardiolog ist referral - Please call patient to schedule an appointme nt. Thank you. 2024 025 [email or web address] [place], [address], [address], [place], [address], 12/25/2024 09:41:37 gastroent erologist referral - Please call patient to schedule an appointme nt. Thank you. 2024 025 [facility], [address], [address], [place], [address], 12/01/2024 10:10:37 physical therapist referral - Please schedule pt for L shoulder. Thanks 2024 025 [email or web address] [facility] Anton, [address], [place], [address], 10/12/2024 20:27:32 nephrolog ist referral - Please call patient to schedule an appointme nt. Thank you. 2024 025 [email or web address] Owen Hinson MD (Nephrology, [address], [address], [place], [address], 12/25/2024 09:41:35 orthopedi c surgeon referral 2024 025 [email or web address] Bailey Hernandez MD, [address] [facility], [place], [address], 10/08/2024 17:47:12 orthopedi c surgeon referral - Please call patient to schedule. 2024 025 Bailey Hernandez MD, [address] [facility], [place], [address], 10/08/2024 17:47:11 gastroent erologist referral - Please call patient to schedule an appointme nt. Thank you. 2024 025 kendra Childers MD, [address] [facility], [address], [place], [address], 11/24/2024 17:58:06 cardiolog ist referral 2024 025 [email or web address] [place], [address] [facility], [address], [place], [address], 10/08/2024 17:46:51 gastroent erologist referral - Please call patient to schedule an appointme nt. Thank you. 2024 025 kendra Childers MD, [address] [facility], [address], [place], [address], 12/23/2024 08:40:[address] referral - Please call patient to schedule an appointme nt. Thank you. 2024 025 NEO Hare MD, [address] [facility], [address], [place], [address], 10/23/2024 12:20:31 podiatris t referral 2024 025 [email or web address] Crow Balderrama DPM, [address] [facility], [address], [place], [address], 10/08/2024 17:46:50 ENT surgery referral - Please call patient to schedule. 2023 024 [email or web address] 2 Barbara N Rik [employer] [employer] [facility], [address], [place], [address], 11/25/2024 08:19:42 Procedures injection /aspirati on joint/bur sa (PROC) 2024 025 [email or web address] In-Office Order, Internal Use Only DO Not Attach Compendium DO Not Attach Compendium, Do Not Delete/merge, [id number] 10/08/2024 14:40:14 Surgeries None recorded. Imaging MRI, shoulder, w/o contrast - Please contact pt to schedule apt. Thanks [address], [address], [place], [address], 12/05/2024 19:53:41 Medication Orders Celebrex 200 mg capsule [address] [facility], [address] [place] [address], [address], 12/05/2024 19:53:41 atorvasta tin 40 mg tablet 2024 [facility], [address] [place] [address], [address], 11/20/2024 12:44:48 metoprolo l succinate ER 50 mg tablet,ex tended release 24 hr 2024 [facility], [address] [place], [address], 11/20/2024 12:44:49 bupivacai ne HCl 0.5 % (5 mg/mL) injection solution [address] [facility], [address] [place] [address], [address], 10/12/2024 20:27:32 Kenalog 10 mg/mL suspensio n for injection [address] [facility], [address] [place] [address], [address], 10/12/2024 20:27:32 Mobic 15 mg tablet [address] [facility], [address] [place] [address], [address], 10/12/2024 20:27:32 meloxicam 7.5 mg tablet 2024 025 [facility], [address] [place] [address], [address], 10/07/2024 12:34:00 ipratropi um bromide 42 mcg (0.06 %) nasal spray 2023 024 [facility], [address] [place] [address], [address], 08/27/2024 09:26:59 albuterol sulfate HFA 90 mcg/actua tion aerosol inhaler 2023 024 [facility], [address] [place] [address], [address], 08/27/2024 09:26:55 Anoro Ellipta 62.5 mcg-25 mcg/actua tion powder for inhalatio n 2023 024 [facility], [address] [place] [address], [address], 08/27/2024 09:26:56 Patient TargetsNo targets recorded. Patient Instructions Encounter Date Encounter Id Patient Instructions Last Modified By Organization Details Last Modified Time 10/07/2024 [id number] diabetic eye exam* [email or web address] Not available 10/07/2024 12:29:43 11/20/2024 [id number] diabetic eye exam* [email or web address] Not available 11/20/2024 12:46:05 Reason for Referral ENT Surgery Referral for Dys phonia Please call patient to schedule. Referring Physician: Duncan Suarez, Pulmonary Disease, Encounter Date: 08/27/2024 Aircraft Restorer Referral for Type 2 diabetes mellitus without complication Referring Physician: Caitlin Moreno Internal Medicine, Encounter Date: 10/07/2024 Operating Room Tech Referral for Co ronary arteriosclerosis Referring Physician: Caitlin Moreno Internal Medicine, Encounter Date: 10/07/2024 Neurologist Referral for Tra nsient cerebral ischemia Please call patient to schedule an appointment. Thank you. Referring Physician: Caitlin Moreno Internal Medicine, Encounter Date: 10/07/2024 Casing Grader Referral for Pr oteinuria Please call patient to schedule an appointment. Thank you. Referring Physician: Caitlin Moreno Internal Medicine, Encounter Date: 10/07/2024 Orthopedic Surgeon Referral for Pain of right knee joint Please call patient to schedule. Referring Physician: Caitlin Moreno Internal Medicine, Encounter Date: 10/07/2024 Smoke Tester Referral for Melendez's esophagus Please call patient to schedule an appointment. Thank you. Referring Physician: Caitlin Moreno Internal Medicine, Encounter Date: 10/07/2024 Smoke Tester Referral for Liver enzymes level above reference [...] Bailey Hernandez, Orthopedic Surgery, Encounter Date: 10/08/2024 Aircraft Restorer Referral for Type 2 diabetes mellitus without complication Please call patient to schedule an appointment. Thank you. Referring Physician: Caitlin Moreno Internal Medicine, Encounter Date: 11/20/2024 Operating Room Tech Referral for Co ronary arteriosclerosis Please call patient to schedule an appointment. Thank you. Referring Physician: Caitlin Moreno Internal Medicine, Encounter Date: 11/20/2024 Neurologist Referral for Tra nsient cerebral ischemia Please call patient to schedule an appointment. Thank you. Referring Physician: Caitlin Moreno Internal Medicine, Encounter Date: 11/20/2024 Casing Grader Referral for Pr oteinuria Please call patient to schedule an appointment. Thank you. Referring Physician: Caitlin Moreno [facility] Medicine, Encounter Date: 11/20/2024 Smoke Tester Referral for Melendez's esophagus Please call patient to schedule an appointment. Thank you. Referring Physician: Caitlin Moreno [facility] Medicine, Encounter Date: 11/20/2024 Smoke Tester Referral for Liver enzymes level above reference range Please call patient to schedule an appointment. Thank you. Referring Physician: Caitlin Moreno [facility] Medicine, Encounter Date: 11/20/2024 Orthopedic Surgeon Referral for Pain of left shoulder joint Please call patient to schedule an appointment. Thank you. Referring Physician: Caitlin Moreno [facility] Medicine, Encounter Date: 11/20/2024 Vascular Surgeon Referral fo r Carotid artery stenosis Please call patient to schedule an appointment. Thank you. Referring Physician: Caitlin Moreno [facility] Medicine, Encounter Date: 11/20/2024 Results Created Date Observation Date Name Description Value Unit Range Abnormal Flag Note LastModifiedBy Organization Detail LastModifiedTime 08/27/20 24 08/30/2024 CULTU RE, SPUTU M/LOW ER RESPI RATOR Y culture, sputum/lower respiratory SEE NOTE abnormal CULTU RE, SPUTU M/LOW ER RESPI RATOR Y Micro Numbe r: [id number] Test Statu s: Final Speci men [...] or addit ional testi ng. Not Available [facility] [address] [place], [address], 08/30/2024 09:54:32 08/08/20 24 06/18/2024 compl ete PFT w/ [facility] hodil ator altagracia metry * No observ ation record ed. BARCODE Not Available 2023 11:25:37 10/01/19 25 10/01/2024 imagi ng/di agnos tic resul t No observ ation record ed. [address], [place], [address], 10/01/2024 21:41:55 12/22/19 25 12/21/2024 imagi ng/di agnos tic resul t No observ ation record ed. [address], [place], [address], 12/21/2024 13:10:41 01/03/20 25 01/02/2025 imagi ng/di agnos tic resul t No observ ation record ed. [facility] [address] [facility], [place], [address], 01/02/2025 13:25:36 01/14/20 25 01/12/2025 imagi ng/di agnos tic resul t No observ ation record ed. [address], [place], [address], 01/13/2025 11:35:03 01/27/20 25 01/25/2025 imagi ng/di agnos tic resul t No observ ation record ed. [address], [place], [address], 01/26/2025 07:22:46 01/28/20 25 01/27/2025 imagi ng/di agnos tic resul t No observ ation record ed. [address] [facility], [place], [address], 01/27/2025 17:11:51 02/05/20 25 02/04/2025 imagi ng/di agnos tic resul t No observ ation record ed. [address], [place], [address], 02/04/2025 18:37:32 02/05/20 25 02/04/2025 imagi ng/di agnos tic resul t No observ ation record ed. [address], [place], [address], 02/04/2025 18:44:57 02/05/20 25 02/04/2025 imagi ng/di agnos tic resul t No observ ation record ed. [address], [place], [address], 02/04/2025 18:46:10 02/07/20 25 02/04/2025 imagi ng/di agnos tic resul t No observ ation record ed. [id number] Ent Teresa Garg [address], [place], [address], 02/10/2025 10:15:16 Result Notes None recorded. Problems Name Problem SNOMED Code Status Onset Date Resolution Date Notes Provider Name and Address Organization Details Recorded Time Carotid artery stenosis 60859013 Active 2022 Not Available [facility] 4 22:24:36 Coronary arteriosc lerosis 22271900 Active 2022 Not Available [facility] 4 22:24:36 Vitamin D deficienc y 38438491 Active 2022 Not Available [facility] 4 22:24:36 Carotid artery stenosis 85089735 Active 2022 Not Available [facility] 4 22:24:36 Male hypogonad ism 56148505 Active 2022 Not Available [facility] 4 22:24:36 Diabetic periphera l neuropath y 541651749 Active 2022 Not Available [facility] 4 22:24:36 Bilateral foot congenita l pes cavus 77215084130 904657 Active 2022 Not Available [facility] 4 22:24:35 Melendez's esophagus 234526114 Active 2022 Not Available [facility] 4 22:24:36 Transient cerebral ischemia 339107491 Active 2023 Caitlin albright MD [address], [place], [address] , [employer] 4 12:46:26 Serum vitamin B12 below reference range 383921506 Active 2023 Caitlin albright MD [address], [place], [address] , [employer] 4 12:46:26 Chronic kidney disease 559460066 Active 2023 Caitlin albright MD [address], [address], [place], [address] , [employer] 4 10:23:58 Osteoarth ritis of right knee joint 01165863361 9100 Active 2023 ANGIE Martinez [address], [address], [place], [address] , [facility] [employer] [facility] 4 16:55:12 Penile candidias is 338236754 Active 2023 Caitlin albright MD [address], [place], [address] , [facility] 4 14:16:16 Chronic obstructi ve pulmonary disease 44290588 Active 2023 Caitlin albright MD [address], [place], [address] , [facility] - [facility] 4 14:16:16 Mild chronic obstructi ve pulmonary disease 290006857 Active 2023 Duncan Suarez MD [address], [place], [address] , [facility] [employer] [facility] 4 16:48:00 Posterior rhinorrhe a 03071374 Active 2023 Duncan Suarez MD [address], [place], [address] , [employer] [facility] 4 17:22:34 Dysphonia 19659844 Active 2023 Duncan Suarez MD [address], [place], [address] , [facility] - [facility] 4 09:26:26 Liver enzymes level above reference range 514093037 Active 2024 Caitlin albright MD [address], [place], [address] , [facility] - [facility] 5 12:14:26 Proteinur ia 38583100 Active 2024 Caitlin albright MD [address], [place], [address] , [place] [facility] 5 12:14:26 Chronic pain 38723207 Active 2024 Caitlin albright MD [address], [place], [address] , [place] [facility] 5 12:14:26 Type 2 diabetes mellitus without complicat ion 649680835 Active 2024 Caitlin albright MD [address], [place], [address] , [place] [facility] 5 12:14:26 Pain of right knee joint 18853578108 4100 Active 2024 Caitlin albright MD [address], [address], [place], [address] , [place] [facility] 5 12:14:26 Abdominal pain 77291245 Active 2024 Caitlin albright MD [address], [address], [place], [address] , [place] [facility] 5 12:14:26 Pneumonia 982463191 Active 2024 Caitlin albright MD [address], [place], [address] , [place] [facility] 5 12:14:26 Acute allergic reaction 405038009 Active 2024 Caitlin albright MD [address], [address], [place], [address] , [place] [facility] 5 12:14:26 Pain of bilateral hip joints 42932600158 122678 Active 2024 Caitlin albright MD [address], [address], [place], [address] , [place] [facility] 5 12:14:26 Pain of left shoulder joint 17204547852 540562 Active 2024 Caitlin albright MD [address] [facility], [address], [place], [address] , [place] [facility] 5 12:32:15 Computed tomograph y result abnormal 467909436 Active 2024 Mary Coley, RMJamaal null, [place] [facility] 5 15:06:05 Chronic back pain 640139916 Active 1990 on pain meds from Dr Villatoro Not Available [facility] 4 22:24:35 Impacted cerumen 10752825 Completed Not Available [facility] 3 04:53:49 Gastroeso phageal reflux disease 509272576 Active Not Available [facility] 4 22:24:36 Microalbu minuria 966597197 Active 2021 Not Available [facility] 4 22:24:36 Restless legs 01166999 Active 2017 Not Available [facility] 4 22:24:36 Sinusitis 24857789 Completed Not Available [facility] 3 04:53:50 Solitary nodule of lung 625183393 Active 2022 Not Available [facility] 4 22:24:36 Herpes zoster 9279189 Completed Not Available [facility] 3 04:53:50 Pain of hip region 97573925 Completed Not Available [facility] 3 04:53:50 Dysuria 45571982 Completed Not Available [facility] 3 04:53:50 Hyperlipi demia 72953918 Active Not Available [facility] 4 22:24:36 Essential hypertens ion 98475238 Active Not Available [facility] 4 22:24:36 Diarrhea 27485342 Completed Not Available [facility] 3 04:53:51 Polyp of colon 44804919 Active Not Available [facility] 4 22:24:36 Notes:Medical History: TIA 2 [...] stent 2022 Cholecystectomy 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 Procedures Surgical History Date Name Laterality Status Provider Name and Address Organization Details Recorded Time 10/08/19 25 Ortho - Cortisone Injection completed Bailey Hernandez MD [address] [facility], [address], [place], [address], [employer] 10/08/2024 15:44:23 06/04/20 24 Transitional_Car e_Management completed Caitlin Moreno MD [address] [facility], [address], [place], [address], [employer] 06/04/2024 14:34:44 05/26/20 24 Transitional_Car e_Management completed Caitlin Moreno MD [address] [facility], [address], [place], [address], [employer] 05/26/2024 18:46:46 04/03/20 24 Medicare Wellness CPT Code, subsequent completed Sumeet Lai LPN [employer] 04/01/2024 12:41:54 05/02/20 23 Colonoscopy completed LEE Boyd [employer] 05/16/2023 14:33:53 02/01/20 19 Total hip arthroplasty completed Not Available [employer] 11/15/2022 04:43:55 Orthopedic Surgery completed Not Available [employer] 11/15/2022 04:43:55 Orthopedic Surgery completed Not Available [employer] 11/15/2022 04:43:55 Orthopedic Surgery completed Not Available [employer] 11/15/2022 04:43:55 insertion of carotid artery stent completed LEE Boyd [employer] 03/28/2023 14:33:51 Imaging Results None recorded. Procedure Notes None recorded. Medical Equipment None [...] mg by injectio n route. [address] [facility]: [id number] [id number] Not Available Not Available Not [...] bromide 42 mcg (0.06 %) nasal spray [place] 1 spray 4 times a day by [...] Body weight Body temperature Heart rate Systolic And Diastolic Provider Name and Address Organization Details Last Updated DateTime 5 162.56 cm 23.3 kg/m2 69743.5 6 g 97.7 [degF] 78 /min 140/80 mm[Hg] LEE Boyd [employer] 11:57:16 Date Recorded Body height Body mass index (BMI) Body weight Provider Name and Address Organization Details Last Updated DateTime 10/08/2024 162.56 cm 23.3 kg/m2 22382.56 g [employer] Hu [employer] 10/08/2024 14:27:08 Date Recorded Body height Body mass index (BMI) Body weight Body temperature Heart rate Oxygen saturation Oxygen saturation in Arterial blood by Pulse oximetry Systolic And Diastolic Provider Name and Address Organization Details Last Updated DateTime 5 162.56 cm 22.8 kg/m2 75330.7 9 g 97.8 [degF] 81 /min 97 % 97 % 160/82 mm[Hg] Gayle Quintanilla MA [facility] [employer] 5 11:56:05 Date Recorded Body height Body mass index (BMI) Body weight Provider Name and Address Organization Details Last Updated DateTime 12/03/2024 162.56 cm 23.3 kg/m2 81992.56 g Porsche Hu [facility] [employer] 12/03/2024 14:53:40 Date Recorded Heart rate Respiratory rate Systolic And Diastolic Provider Name and Address Organization Details Last Updated DateTime 08/27/2024 81 /min 17 /min 140/84 mm[Hg] Duncan Suarez MD [address] [place] [address], [id number], [facility] [employer] [facility] 08/27/2024 09:17:52 Date Recorded Body height Body mass index (BMI) Body weight Body temperature Heart rate Oxygen saturation Oxygen saturation in Arterial blood by Pulse oximetry Provider Name and Address Organization Details Last Updated DateTime 4 162.56 cm 25.3 kg/m2 27137.8 g 98.2 [degF] 81 /min 97 % 97 % Gayle Quintanilla MA [facility] [employer] 4 08:54:56 Social History Question Answer Notes LastModified by Organization Details LastModified Time Tobacco Smoking Status Former Smoker quit 02/2023 LEE Boyd null, [facility] [employer] [facility] 03/28/2023 14:32:44 Do You Have An Advance Directive? Yes Patient Stated He Needs To Update Since . Recommended Working With An Tree Trimmer Helper. MIGRATION.644 [id number] Information not available 11/15/2022 Do You Wear A Helmet When Biking? No Does Not Bike [email or web address] Information not available 04/03/2024 Are You Blind Or Do You Have Difficulty Seeing? No MIGRATION.792 [id number] Information not available 11/15/2022 Is Blood Transfusion Acceptable In An Emergency? Yes [email or web address] Information not available 04/03/2024 What Is Your Level Of Caffeine Consumption? Moderate MIGRATION.069 [id number] Information not available 11/15/2022 How Much Tobacco Do You Chew? None MIGRATION.531 [id number] Information not available 11/15/2022 In The 14 Days Before Symptom Onset, Have You Had Close Contact With A Laboratory-conf irmed COVID-19 While That Case Was Ill? No MIGRATION.017 [id number] Information not available 11/15/2022 In The 14 Days Before Symptom Onset, Have You Had Close Contact With A Person Who Is Under Investigation For COVID-19 While That Person Was Ill? No MIGRATION.221 [id number] Information not available 11/15/2022 Are You Deaf Or Do You Have Serious Difficulty Hearing? No MIGRATION.144 [id number] Information not available 11/15/2022 What Type Of Diet Are You Following? REGULAR MIGRATION.935 [id number] Information not available 11/15/2022 Which Illicit Or Recreational Drugs Have You Used? None MIGRATION.804 [id number] Information not available 11/15/2022 What Is The Highest Grade Or Level Of School You Have Completed Or The Highest Degree You Have Received? [id number] Information not available 04/03/2024 Do You Have An Electrostatic Air Filter? No Information not available 08/27/2024 How Many Days Of Moderate To Strenuous Exercise, Like A Brisk Walk, Did You Do In The Last 7 Days? 2 [email or web address] Information not available 04/03/2024 On Those Days That You Engage In Moderate To Strenuous Exercise, How Many Minutes, On Average, Do You Exercise? 30 [email or web address] Information not available 04/03/2024 Have There Been Any Changes To Your Family Or Social Situation? No MIGRATION.950 9559862 Information not available 11/15/2022 What Is The Fluoride Status Of Your Home? Unknown MIGRATION.887 7410908 Information not available 11/15/2022 When Did You Quit Smoking? 1-5yearssincelastc igarette [email or web address] Information not available 04/05/2023 Are There Any Guns Present In Your Home? No MIGRATION.596 2538593 Information not available 11/15/2022 Do You Have A Humidifier? No Information not available 08/27/2024 Do You Use Insect Repellent Routinely? No MIGRATION.888 3236015 Information not available 11/15/2022 Where Do You Live? SingleLevelHouse MIGRATION.981 [id number] Information not available 11/15/2022 Presence Of Domestic Violence No Information not available 04/03/2024 Guns Present In The Home? No Information not available 04/03/2024 Are You Able To Care For Yourself? Yes [email or web address] Information not available 04/03/2024 Are You Blind Or Do Yo Have Difficulty Seeing? No [email or web address] Information not available 04/03/2024 Are You Deaf Or Do You Have Serious Difficulty Hearing? No [email or web address] Information not available 04/03/2024 General Stress Level? Low [email or web address] Information not available 04/03/2024 Live Alone Of With Others? With Others Dtr. And Her Family Lives Woth Patient Information not available 04/03/2024 Do You Have A Medical Power Of Tree Trimmer Helper? No Information not available 04/03/2024 Do You Have Moisture Problems In Your Home? No Information not available 08/27/2024 What Was The Date Of Your Most Recent Tobacco Screening? 11/20/2024 Information not available 11/20/2024 What Is Your Current Pack Years? 30ormorepackyears MIGRATION.368 [id number] Information not available 11/15/2022 Do You Have Any Pets? No 1 Dog 1 Cat [email or web address] Information not available 04/03/2024 What Is Your Relationship Status? MIGRATION.016 [id number] Information not available 11/15/2022 Do You Use Your Seat Belt Or Car Seat Routinely? Yes MIGRATION.591 [id number] Information not available 11/15/2022 Do You Have Smoke And Carbon Monoxide Detectors In Your Home? Yes MIGRATION.859 6333546 Information not available 11/15/2022 At What Age Did You Start Smoking Tobacco? 18 MIGRATION.645 0450415 Information not available 11/15/2022 Are You Passively Exposed To Smoke? No [email or web address] Information not available 04/03/2024 Are There Any Smokers In Your House? No [email or web address] Information not available 04/03/2024 How Much Tobacco Do You Smoke? No Was 1/2 Ppd Information not available 03/28/2023 What Types Of Sporting Activities Do You Participate In? None [email or web address] Information not available 04/03/2024 Do You Use Sunscreen Routinely? Yes MIGRATION.998 [id number] Information not available 11/15/2022 How Many Years Have You Smoked Tobacco? 53 MIGRATION.026 1160680 Information not available 11/15/2022 Have You Recently Traveled Abroad? No MIGRATION.615 [id number] Information not available 11/15/2022 Do You Have Difficulty Walking Or Climbing Stairs? No MIGRATION.482 [id number] Information not available 11/15/2022 Do You Have Any Dietary Restrictions? No MIGRATION.596 5096208 Information not available 11/15/2022 Sex: Male Functional Status Question Answer Note LastModified by Organizat ion Details LastModified Time Do you use any illicit or recreational drugs? No MIGRATION.019645 1318 Information not available 11/15/2022 Do you or have you ever used any other forms of tobacco or nicotine? No MIGRATION.[id number] 4657 Information not available 11/15/2022 What is your level of alcohol consumption? None MIGRATION.209893 0521 Information not available 11/15/2022 Are you currently employed? No Information not available 03/28/2023 Have you been exposed to chemicals or toxins? No No that aware of Information not available 08/27/2024 Do you have transportation difficulties? No MIGRATION.993927 9993 Information not available 11/15/2022 Are you able to walk? YESWOREST MIGRATION.992286 8980 Information not available 11/15/2022 Do you have difficulty doing errands alone? No MIGRATION.074087 8785 Information not available 11/15/2022 Are you able to care for yourself? Yes MIGRATION.338396 7998 Information not available 11/15/2022 What is your occupation? Retired MIGRATION.872228 6472 Information not available 11/15/2022 Do you have difficulty dressing or bathing? No MIGRATION.368189 8428 Information not available 11/15/2022 What is your exercise level? Occasional Active life stlye [email or web address] Information not available 04/03/2024 Mental Status Question Answer Note LastModified by Organizat ion Details LastModified Time Do you feel stressed (tense, restless, nervous, or anxious, or unable to sleep at night)? [id number] MIGRATION.[id number] 26 Information not available 11/15/2022 Do you have difficulty concentrating, remembering or making decisions? No MIGRATION.65830548 26 Information not available 11/15/2022 Family History Relationship Description Onset Age of this Age Resolved Age Notes LastModified by Organization Details LastModified Time Brother Essential hypertension MIGRATION.173 [id number] Not available 11/15/2022 04:44:01 Brother Malignant neoplastic disease Colon MIGRATION.890 [id number] Not available 11/15/2022 04:44:01 Father Essential hypertension MIGRATION.448 [id number] Not available 11/15/2022 04:44:01 Father Heart disease MIGRATION.102 [id number] Not available 11/15/2022 04:44:01 Mother Essential hypertension MIGRATION.570 [id number] Not available 11/15/2022 04:44:01 Mother Heart disease MIGRATION.795 [id number] Not available 11/15/2022 04:44:01 Sister Malignant neoplastic disease Breast MIGRATION.423 [id number] Not available 11/15/2022 04:44:02 Maternal Grandmother Family history of stroke [email or web address] Not available 2022 14:36:39 Mother Arthritis Not [...] 50 mcg/0.25mL dose 1 completed SANDRA Rosa, [facility] [employer] [facility] 04/01/2024 14:20:36 COVID-19, mRNA, LNP-S, PF, 100 mcg/0.5mL dose or 50 mcg/0.25mL dose 1 completed SANDRA Rosa, [facility] [employer] [facility] 04/01/2024 14:20:36 pneumococcal polysaccharide PPV23 3 completed SANDRA Rosa, [facility] [employer] [facility] 04/01/2024 14:20:36 Influenza, split virus, trivalent, PF 7 completed Sumeet Lai LPN null, [facility] 04/01/2024 14:20:37 COVID-19, mRNA, LNP-S, PF, 30 mcg/0.3 mL dose 1 completed Sumeet Lai LPN null, [facility] 04/01/2024 14:20:36 COVID-19, mRNA, LNP-S, PF, 30 mcg/0.3 mL dose 1 completed Sumeet Lai LPN null, [facility] 04/01/2024 14:20:36 pneumococcal polysaccharide PPV23 7 completed Sumeet Lai LPN null, [facility] 04/01/2024 14:20:36 Influenza, high-dose, trivalent, PF 9 completed Not Available [facility] 10/02/2023 01:29:04 Influenza, high-dose, trivalent, PF 8 completed Not Available [facility] 10/02/2023 01:29:04 Pneumococcal conjugate PCV 13 8 completed SANDRA Rosa, [facility] 04/01/2024 14:20:36 Influenza, high-dose, trivalent, PF 5 completed Not Available [facility] 10/02/2023 01:29:04 pneumococcal polysaccharide PPV23 5 completed Not Available [facility] 10/02/2023 01:29:04 Influenza, split virus, trivalent, PF 4 completed Sumeet Lai LPN gerard, [facility] 04/01/2024 14:20:37 Influenza, split virus, trivalent, PF 3 completed SANDRA Rosa, [facility] 04/01/2024 14:20:37 Past Encounters Encounter ID Performer Location Encounter Start Date Encounter Closed Date Diagnosis/Indication Diagnosis SNOMED-CT Code Diagnosis ICD10 Code Diagnosis Note [id number] Josemanuel Jones MD [facility] [place] [place] Internal Med [address] [facility] [place] [address] 05/26/2021 00:00:00 06/07/2021 17:13:19 [id number] Josemanuel Jones MD [facility] [address] [place] [address] 05/26/2021 00:00:00 06/07/2021 17:22:34 [id number] Josemanule Jones MD [facility] [address] [place] [address] 10/11/2021 00:00:00 10/11/2021 12:15:42 [id number] Josemanuel Jones MD [facility] Internal [facility] [address] [facility] [place] [address] 11/10/2021 00:00:00 11/10/2021 14:15:46 [id number] Josemanuel Jones MD [facility] Internal Med [address] [facility] [place] [address] 12/21/2021 00:00:00 12/21/2021 12:26:48 [id number] Josemanuel Jones MD [facility] Med [address] [facility] [place] [address] 02/09/2022 00:00:00 02/09/2022 13:02:43 [id number] Josemanuel Jones MD [facility] [address] [facility] [place] [address] 06/13/2022 00:00:00 06/13/2022 17:11:20 [id number] Josemanuel Jones MD [facility] Med [address] [facility] [place] [address] 07/26/2022 00:00:00 07/26/2022 10:05:44 [id number] Josemanuel Jones MD [facility] Med [address] [facility] [place] [address] 10/16/2022 00:00:00 10/16/2022 17:28:29 [id number] Josemanuel Jones MD [facility] Med [address] [facility] [place] [address] 02/22/2023 14:00:48 02/22/2023 14:44:11 Diabetes mellitus 51624870 E11.9 , advised to get labs Hyperlipidemia 23873372 E78.5 Zetia, needs labs Essential hypertension 81735776 I10 add HCTZ Restless legs 95098323 G 25.81 meds help Gastroesop hageal reflux disease 223604878 K21.9 meds help Chronic pain syndrome 37 7442905 G89.4 otc helps Pain of bi lateral hip joints 6650437368 6144831 M25.551 OTC Smoker 50505872 F17.200 advised to quit Solitary n odule of lung 458516189 R91.1 advised to quit smoking Adult heal th examination 843522052 Z00.00 colonoscop y- due, was ordered few times, he will call GI to schedule it, will not reorderPSA -07/07, WAS [id number] 09/23/2017PP 23- 07/28/2013 , 02/2017, 08/04/2015 influenza vaccine- 08/13/19CO VID- 12/26/2020 , 01/27/2021 Chronic ob structive pulmonary disease 57171857 J44.9 better Weakness o f left upper limb 6259254751 36329 M62.81 improved, watch, symptoms were vague Screening for malignant neoplasm of prostate 458445141 Z12.5 Depression screening 171 915125 Z13.31 neg Body mass index 20-24 - normal 320399746 Z68.23 [id number] Caitlin albright MD [facility] [address] [facility] [place] [address] 03/28/2023 13:57:30 03/28/2023 15:13:44 Screening - NAD 308126658 Z13.9 C-scope: Get this done or get the report if done Get yearly flu shotUTD on COVID X2, can do boostersUT D on PCVGet tdap if not doneGet Shingrix if not done RTC in 3 months, do labs, ER if worse, he did verbalize his understand ing of the above Hyperlipidemia 75570051 E78.5 On ASAOn atorvastat in 40mg dailyGet labs 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 157763381 E11.9 On metformin Get labs Gastroesop hageal reflux disease without esophagitis 177703044 K21.9 On omeprazole Get EGD done Chronic ob structive pulmonary disease 02137345 J44.9 On albuterolO n HHNsOn trelegy Carotid ar angel stenosis 87722701 I65.29 S/p stent in 03/09On ASAOn plavix Restless legs 52460019 G 25.81 On requipDoes well Ex-cigarette smoker 2810 49598 Z87.891 LDCT 09/21/2022 Get US AAA done Coronary arteriosclerosis 43458720 I25.10 CAD noted Get a referral to cardiology Dr Guevara Screening for malignant neoplasm of colon 384942201 Z12.11 Transient cerebral ischemia 263317411 G45.[address] Schumacher his neurologis t, get last OV note S/p hospitaliz ation, does very well now, no residual symptoms at this timeOn ASAOn [place]avixOn [place] in [id number] Duncan Suarez MD [facility] [address] [place] [address] 04/05/2023 11:23:02 04/06/2023 07:44:46 Dyspnea on exertion 10406604 R06.09 R05.9 T78.40XA D89.9 Solitary n odule of lung 375753173 R91.1 [id number] Caitlin albright MD [facility] [place] [address] [facility] [place] [address] 05/16/2023 14:18:54 05/16/2023 15:23:17 Screening - NAD 825089796 Z13.9 C-scope: Get this done or get the report if done Get yearly flu shotUTD on COVID X2, can do boostersUT D on PCVGet tdap if not doneGet Shingrix if not done RTC in 3 months, do labs, ER if worse, he did verbalize his understand ing of the above Hyperlipidemia 85941442 E78.5 On ASAOn atorvastat in 40mg dailyGet labs 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 988100089 E11.9 On metforminO n FarxigaOn olmesartan Get labs Gastroesop hageal reflux disease without esophagitis 948853360 K21.9 On omeprazole Get EGD done Chronic ob structive pulmonary disease 36165923 J44.9 On albuterolO n HHNsOn trelegy Carotid ar angel stenosis 20102019 I65.29 S/p stent in 03/09On ASAOn plavix Restless legs 33275053 G 25.81 On requipDoes well Ex-cigarette smoker 2810 56818 Z87.891 LDCT 09/21/2022 Get US AAA done as US AAA 04/04/2023 was non diagnostic d/t bowel gas Coronary arteriosclerosis 26747784 I25.10 [address] Bette 04/12/2023 , f/u in one month Screening for malignant neoplasm of colon 819927435 Z12.11 Transient cerebral ischemia 479385229 G45.9 CT Angio: 02/28/2023 : High grade stenosis, R ICA, s/p stent He does see Dr Schumacher his neurologis t, get last OV note S/p hospitaliz ation, does very well now, no residual symptoms at this timeOn ASAOn plavixOn atorvastat in Liver enzy mes level above reference range 812048570 R74.8 Get labs and US liver Proteinuria 94423465 R80 .9 Sees nephrology Pain of ri ght knee joint 2364619992 26679 M25.561 Get a referral to ortho Male hypogonadism 150836 06 E29.1 get labs Serum shane min B12 below reference range 326377278 R79.89 Vitamin D deficiency 347 36924 E55.9 [id number] Balbir Wilkins MD [facility] [address] [place] [address] 05/24/2023 13:58:48 05/24/2023 16:01:49 Pain of right knee joint 0734185837 10049 M25.446 [id number] Crow Balderrama DPM [facility] [place] [address] [facility] [place] [address] [place] [address] 07/10/2023 14:30:43 07/16/2023 09:50:24 Diabetic peripheral neuropathy 645757809 E11.40 Rx diabetic shoes and insertsPat ient educated on neuropathy , diabetes, diabetic diet, and daily foot exams. Patient is to check feet daily for new wounds, blisters, redness to prevent infection and ulceration s to the feet. Patient will return to clinic in 3 months for diabetic foot workup. Bilateral foot congenital pes cavus 3004183991 3056559 Q66.71 Q66.72 Recommend diabetic shoes and inserts History of cerebrovascular accident 971883856 Z86.73 continue with PCP recommenda tion [id number] Caitlin albright MD [facility] [address] [address] [facility] [place] [address] [place] [address] 08/30/2023 13:57:45 08/30/2023 15:23:44 Screening - NAD 985907428 Z13.9 C-scope: 05/02/2023 , Dr Dickson next in one year Get yearly flu shotUTD on COVID X2, can do boostersUT D on PCVGet tdap if not doneGet Shingrix if not done RTC in 3 months, do labs, ER if worse, he did verbalize his understand ing of the above Hyperlipidemia 40908738 E78.5 On ASAOn atorvastat in 40mg dailyGet labs 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 684676228 E11.9 On metforminO n FarxigaOn olmesartan Get labs Chronic ob structive pulmonary disease 41007246 J44.9 On albuterolO n HHNsOn trelegy Carotid ar angel stenosis 99733808 I65.29 S/p stent in 03/09On ASAOn plavix Restless legs 44473018 G 25.81 On requipDoes well Ex-cigarette smoker 2810 87314 Z87.891 LDCT 09/21/2022 Get US AAA done as US AAA 04/04/2023 was non diagnostic d/t bowel gas Coronary arteriosclerosis 08108734 I25.10 CAD notedDr Bette 04/12/2023 , f/u in one month Transient cerebral ischemia 143728697 G45.9 CT Angio: 02/28/2023 : High grade stenosis, R ICA, s/p stent He does see Dr Schumacher his neurologis t, get last OV note S/p hospitaliz ation, does very well now, no residual symptoms at this timeOn ASAOn plavixOn atorvastat in Liver enzy mes level above reference range 593883888 R74.8 ALP 128 03/28/2023 Get labs and US liver Proteinuria 04197167 R80 .9 US kidney 05/25/2023 : Dr Hinson IJ Pain of ri ght knee joint 3268113652 77608 M25.561 MRI R knee: 06/07/2023 : Dr Wilkins Male hypogonadism 547272 06 E29.1 get labs Serum shane min B12 below reference range 626998578 R79.89 Vitamin D deficiency 347 23921 E55.9 Get labs Melendez's esophagus 3029 18669 K22.70 On omeprazole 05/02/2023 : EGD BarrettsNe eds a follow up with GI Impacted c erumen of bilateral ears 1549532886 054503 H61.23 Moderate cerumen extracted from his fuentes ears 08/30/2023 , he tolerated the procedure well Upper resp iratory infection 35357706 J06.9 Get flu/strep and COVID 19 testStart on Z-pack, ER if worse Chronic pain 54528976 G8 9.29 Get a referral to pain management [id number] Caitlin albright MD [facility] [place] [place] Internal Med [place] [address] [facility] [address] [place] [address] 09/25/2023 15:56:57 09/25/2023 16:44:27 Abdominal pain 02688630 R10.9 Seen in the ER on 09/19/2023 [...] will see him this 09/27/2023 at 10.30am [id number] Jerod patricia MD [facility] [place] [place] General Surgery [address] [facility] [place] [address] [place] [address] 09/27/2023 11:17:35 09/27/2023 14:26:21 Foreign body 334848684 Z87.821 Foreign body [facility] [id number] Caitlin albright MD [facility] Internal Med [facility] [address] 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 153564525 E11.9 On metforminO n FarxigaNot on olmesartan Get labs Chronic ob structive pulmonary disease 28850368 J44.9 On albuterolO n HHNsNot on trelegy Carotid ar angel stenosis 24361177 I65.29 S/p stent in 03/09On ASAOn plavix Restless legs 09629197 G 25.81 Not on requipOn lyrica 75mg Dr Riojas well Ex-cigarette smoker 2810 13076 Z87.891 LDCT 09/21/2022 Get US AAA done as US AAA 04/04/2023 was non diagnostic d/t bowel gas US AAA 09/18/2023 : Neg Coronary arteriosclerosis 50243124 I25.10 CAD notedDr Bette 04/12/2023 , f/u in one month, referred 11/29/[address] daily [address] Sravan OTERO Transient cerebral ischemia 549032291 G45.9 CT Angio: 02/28/2023 : High grade stenosis, R ICA, s/p stent He does see Dr Schumacher his neurologis t, get last OV note S/p hospitaliz ation, does very well now, no residual symptoms at this timeOn ASANot on plavixNot on atorvastat in On rosuvatati n 40mg daily Liver enzy mes level above reference range 049439284 R74.8 ALP 128 03/28/2023 Get labs and US liver Addendum: 12/07/23US liver 12/03/2023 : Hepatic steatosis, triage notified Proteinuria 82023118 R80 .9 US kidney 05/25/2023 : Dr Sravan OTERO Pain of ri ght knee joint 9178054020 47916 M25.561 MRI R knee: 06/07/2023 : Dr Lemon erred to Dr Hernandez Male hypogonadism 912034 06 E29.1 get labs Serum shane min B12 below reference range 924634855 R79.89 Vitamin D deficiency 347 28585 E55.9 Get labs Melendez's esophagus 3029 64438 K22.70 On omeprazole 05/02/2023 : EGD AlsPrudence eds a follow up with GI Chronic pain 18456165 G8 9.29 Get a referral to pain management today 11/29/2023 , states that he does not want any pain meds at all Abdominal pain 72374202 R10.9 Seen in the ER on 09/19/2023 [...] : Case sent Acute magi rgic reaction 047930130 T78.40XA Seen in ERTreated with steroids, now is doing well Chronic ki dney disease 367135735 N18.9 On calcitriol On losartan Sees Dr Hinson IJ [id number] Caitlin albright MD [facility] Internal Med [place] [address] [facility] , [place] [address] 12/10/2023 10:45:19 12/10/2023 11:26:10 Type 2 diabetes mellitus without complication 153269972 E11.9 On metformin ER 500mg daily, will increase to bidOn Farxiga 10mg daily but was not taking d/t costGet on Jardiance 10mg dailyIs adamant that he does not want to start on any insulin, states that he also was not very compliant with the metforminH e has be told to take his meds on scheduleNo t on olmesartan Get labs Penile candidiasis 32135 8000 B37.49 No more rash noted, he is using his nystatin-t rimacinolo ne cream and states that the rash is cleared up now Screening - NAD 23196805 3 Z13.9 C-scope: 05/02/2023 , Dr Dickson next in one year Get yearly flu shotUTD on COVID X2, can do boostersUT D on PCVGet tdap if not doneGet Shingrix if not doneGet RSV vaccine RTC in 3 months, do labs, ER if worse, he did verbalize his understand ing of the above Hyperlipidemia 83147057 E78.5 On ASAOn atorvastat in 40mg daily, states today 12/10/2023 that he has not been compliant with taking his medication , advised to become compliant and repeat the labs Not on rosuvastat in 40mg dailyGet labs Chronic ob structive pulmonary disease 96715375 J44.9 On albuterolO n HHNsNot on trelegy Carotid ar angel stenosis 95061800 I65.29 S/p stent in 03/09On ASANot on plavixNeed s to see cardiology Restless legs 74902005 G 25.81 Not on requipOn lyrica 75mg Dr Riojas well Ex-cigarette smoker 7400 17182 Z87.891 LDCT 09/21/2022 Get US AAA done as US AAA 04/04/2023 was non diagnostic d/t bowel gas US AAA 09/18/2023 : Neg Coronary arteriosclerosis 39385679 I25.10 CAD notedDr Bette 04/12/2023 , f/u in one month, referred 11/29/[address] Sravan OTEROHas to see Dr Amos Transient cerebral ischemia 393272690 G45.9 CT Angio: 02/28/2023 : High grade stenosis, R ICA, s/p stent He does see Dr Schumacher his neurologis t, get last OV note S/p hospitaliz ation, does very well now, no residual symptoms at this timeOn ASANot on plavixNot on atorvastat in On rosuvatati n 40mg daily Liver enzy mes level above reference range 180926669 R74.8 ALP 128 03/28/2023 Get labs and US liver Addendum: 12/07/23US liver 12/03/2023 : Hepatic steatosis, triage notified Proteinuria 56755586 R80 .9 US kidney 05/25/2023 : Dr Sravan OTERO Pain of ri ght knee joint 7584927029 37158 M25.561 MRI R knee: 06/07/2023 : Dr Lemon erred to Dr Hernandez Male hypogonadism 498820 06 E29.1 get labs Serum shane min B12 below reference range 457466966 R79.89 Vitamin D deficiency 347 17481 E55.9 Get labs Melendez's esophagus 3029 35458 K22.70 On omeprazole 05/02/2023 : EGD Tonja eds a follow up with GI Chronic pain 36814235 G8 9.29 Get a referral to pain management today 11/29/2023 , states that he does not want any pain meds at all Abdominal pain 55012613 R10.9 Seen in the ER on 09/19/2023 [...] abd pain noted Acute magi rgic reaction 584295963 T78.40XA Seen in ERTreated with steroids, now is doing well Chronic ki dney disease 414538422 N18.9 On calcitriol On losartan Sees Dr Hinson IJ [id number] Bailey Hernandez MD [facility] [place] [place] [facility] [place] [address] [place] [address] 12/25/2023 14:36:22 12/25/2023 15:57:04 Pain of right knee joint 4291432752 42278 M25.561 Osteoarthr itis of right knee joint 2993001057 84295 M17.11 [id number] Bailey Hernandez MD [facility] [place] [place] [facility] [place] 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 965570118 E11.9 On metformin ER 500mg bidOn Farxiga 10mg daily but was not taking d/t Carson Jardiance 10mg daily Is adamant that he does not want to start on any insulin, states that he also was not very compliant with the metforminH e has be told to take his meds on scheduleNo t on olmesartan Get labs Penile candidiasis 44059 8000 B37.49 No more rash noted, he is using his nystatin-t rimacinolo ne cream and states that the rash is cleared up now Hyperlipidemia 87685290 E78.5 On ASAOn atorvastat in 40mg daily Not on rosuvastat in 40mg dailyGet labs Chronic ob structive pulmonary disease 81738628 J44.9 On albuterolO n HHNsNot on trelegyNee ds to keep apt with Dr Suarez Carotid ar angel stenosis 42412388 I65.29 S/p stent in 03/09On ASANot on plavixDr Bette [facility] 02/21/2024 , next in 6 months Restless legs 75832638 G 25.81 Not on requipOn lyrica 75mg Dr Riojas well Ex-cigarette smoker 2810 16592 Z87.891 LDCT 09/21/2022 Get US AAA done as US AAA 04/04/2023 was non diagnostic d/t bowel gas US AAA 09/18/2023 : Neg Coronary arteriosclerosis 13440374 I25.10 CAD noted On losartan 50mg daily Dr Sravan Hodges chlorthali done 25mg dailyDr Bette 02/20/2023 Transient cerebral ischemia 588268243 G45.9 CT Angio: 02/28/2023 : High grade stenosis, R ICA, s/p stent He does see Dr Schumacher his neurologis t, get last OV note S/p hospitaliz ation, does very well now, no residual symptoms at this timeOn ASANot on plavixNot on atorvastat in On rosuvatati n 40mg daily Liver enzy mes level above reference range 215161361 R74.8 ALP 128 03/28/2023 Get labs and US liver Addendum: 12/07/23US liver 12/03/2023 : Hepatic steatosis, triage notified Proteinuria 99475079 R80 .9 US kidney 05/25/2023 : Dr Sravan OTERO Pain of ri ght knee joint 8687963216 20983 M25.561 MRI R knee: 06/07/2023 : Dr Lemon erred to Dr Hernandez Male hypogonadism 091978 06 E29.1 get labs Serum shane min B12 below reference range 835533584 R79.89 Vitamin D deficiency 347 85232 E55.9 Get labs Melendez's esophagus 3029 83135 K22.70 On omeprazole 05/02/2023 : EGD Tonja eds a follow up with GI EGD 01/04/2024 : 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 Addendum: 04/03/2024 :See case, needs to get another EGD, he was notified Chronic pain 77870862 G8 9.29 Referred to pain management 11/29/2023 ,Advised not to take any NSAIDs d/t CAD and CKD issuesOK to refill his methocarba mol to take as needed in very limited quantities , if he needs more see pain management Abdominal pain 97766333 R10.9 Seen in the ER on 09/19/2023 [...] abd pain noted Acute magi rgic reaction 453696628 T78.40XA Seen in ERTreated with steroids, now is doing well Chronic ki dney disease 180403045 N18.9 On calcitriol On losartan Sees Dr Sravan OTERO Pain of bi lateral hip joints 2580807205 9848728 M25.551 M25.552 Marcus ADAMS 01/01/2024 Adult heal th examination 612109799 Z00.00 Screening for disorder 310397509 Z13.9 [facility] 34128032 R25.2 Screening for malignant neoplasm of prostate 117520293 Z12.5 [id number] Caitlin albright MD [facility] [place] [place] Internal Med [place] [address] [facility] [place] [address] 05/26/2024 16:14:38 05/26/2024 17:25:00 Screening - NAD 239148179 Z13.9 C-scope: 05/02/2023 , Dr Dickson next [...] 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 202566544 E11.9 On metformin ER 500mg bidOn Farxiga 10mg daily but was not taking d/t Carson Jardiance 10mg daily Is adamant that he does not want to start on any insulin, states that he also was not very compliant with the metforminH e has be told to take his meds on scheduleNo t on olmesartan Get labs Penile candidiasis 59216 8000 B37.49 No more rash noted, he is using his nystatin-t rimacinolo ne cream and states that the rash is cleared up now Hyperlipidemia 28862266 E78.5 On ASAOn atorvastat in 40mg daily Not on rosuvastat in 40mg dailyGet labs Chronic ob structive pulmonary disease 24877951 J44.9 On albuterolO n HHNsOn trelegy as per d/c from [facility] 05/14/2024 Needs to keep apt with Dr Suarez!Today 05/26/2024 : Severe SOB and YAN, at this, he was referred to ER, 911 ambulance called and [facility] Carotid ar angel stenosis 44018663 I65.29 S/p stent in ASANot on plavixDr Bette [facility] 02/21/2024 , next in 6 months Restless legs 95629624 G 25.81 Not on requipOn lyrica 75mg in am and [address] Riojas well Ex-cigarette smoker 2810 81063 Z87.891 LDCT 09/21/2022 Get US AAA done as US AAA 04/04/2023 was non diagnostic d/t bowel gas US AAA 09/18/2023 : Neg Coronary arteriosclerosis 59369723 I25.10 CAD noted On losartan 50mg daily Dr Sravan OTEROOn chlorthali done 25mg dailyDr Bette 02/20/2023 Transient cerebral ischemia 469111757 G45.9 CT Angio: 02/28/2023 : High grade stenosis, R ICA, s/p stent He does see Dr Schumacher his neurologis t, get last OV note S/p hospitaliz ation, does very well now, no residual symptoms at this timeOn ASANot on plavixNot on atorvastat in On rosuvastat in 40mg daily Liver enzy mes level above reference range 756434353 R74.8 ALP 128 03/28/2023 Get labs and US liver Addendum: 12/07/23US liver 12/03/2023 : Hepatic steatosis, triage notified Proteinuria 17563188 R80 .9 US kidney 05/25/2023 : Dr Sravan OTERO Pain of ri ght knee joint 0240229029 81552 M25.561 MRI R knee: 06/07/2023 : Dr Lemon erred to Dr Hernandez Male hypogonadism 216658 06 E29.1 get labs Serum shane min B12 below reference range 512954502 R79.89 Vitamin D deficiency 347 88810 E55.9 Get labs Melendez's esophagus 3029 30417 K22.70 On omeprazole 05/02/2023 : EGD BarrettsNe eds a follow up with GI EGD 01/04/2024 : 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 Addendum: 04/03/2024 :See case, needs to get another EGD, he was notified Chronic pain 74449942 G8 9.29 Referred to pain management 11/29/2023 ,Advised not to take any NSAIDs d/t CAD and CKD issuesOK to refill his methocarba mol to take as needed in very limited quantities , if he needs more see pain management Abdominal pain 92309015 R10.9 Seen in the ER on 09/19/2023 [...] : Case sent Acute magi rgic reaction 526948463 T78.40XA Seen in ERTreated with steroids, now is doing well Chronic ki dney disease 106800403 N18.9 On calcitriol On chlorthali done 25mg dailyOn losartan 50mg daily Sees Dr Hinson IJ Pain of bi lateral hip joints 0849403834 4309730 M25.551 M25.552 Marcus ADAMS 01/01/2024 Screening for malignant neoplasm of prostate 424609479 Z12.5 Transition of care 22078 48830 105 Z75.8 [id number] Caitlin albright MD [facility] Internal Med [place] [address] [facility] [address] , [place] [address] 06/04/2024 14:22:04 06/04/2024 15:03:41 Screening - NAD 802781635 Z13.9 C-scope: 05/02/2023 , Dr Dickson next [...] 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 884719283 E11.9 On metformin ER 500mg bidOn Farxiga 10mg daily but was not taking d/t Carson Jardiance 10mg dailyOn lantus 10U at bedtime Not on olmesartan Get labs Penile candidiasis 94740 8000 B37.49 No more rash noted, he is using his nystatin-t rimacinolo ne cream and states that the rash is cleared up now Hyperlipidemia 95445165 E78.5 On ASAOn atorvastat in 40mg daily Not on rosuvastat in 40mg dailyGet labs Chronic ob structive pulmonary disease 79496736 J44.9 On albuterolO n HHNsOn trelegy Needs to keep apt with Dr Suarez!Today 05/26/2024 : Severe SOB and YAN, at this, he was referred to ER, 911 ambulance called and [facility] OV 06/04/2024 :Dr Suarez 06/04/2024 , keep apts with pulmonary Carotid ar angel stenosis 16928937 I65.29 S/p stent in 03/09On ASANot on plavixDr Bette [facility] 02/21/2024 , next in 6 months Restless legs 79092024 G 25.81 Not on requipOn lyrica 75mg in am and [address] Riojas well Ex-cigarette smoker 2810 42594 Z87.891 LDCT 09/21/2022 Get US AAA done as US AAA 04/04/2023 was non diagnostic d/t bowel gas US AAA 09/18/2023 : Neg Coronary arteriosclerosis 77867508 I25.10 CAD noted On losartan 50mg daily Dr Sravan palma done 25mg dailyOn metoprolol ER 50mg dailyDr Bette 02/20/2023 Transient cerebral ischemia 494652485 G45.9 CT Angio: 02/28/2023 : High grade stenosis, R ICA, s/p stent He does see Dr Schumacher his neurologis t, get last OV note S/p hospitaliz ation, does very well now, no residual symptoms at this timeOn ASANot on plavixNot on atorvastat in On rosuvastat in 40mg daily Liver enzy mes level above reference range 878661019 R74.8 ALP 128 03/28/2023 Get labs and US liver Addendum: 12/07/23US liver 12/03/2023 : Hepatic steatosis, triage notified Proteinuria 02430609 R80 .9 US kidney 05/25/2023 : Dr Hinson IJ Pain of ri ght knee joint 2942146196 37718 M25.561 MRI R knee: 06/07/2023 : Dr Lemon erred to Dr Hernandez Male hypogonadism 984118 06 E29.1 Get labs Serum shane min B12 below reference range 131449246 R79.89 Vitamin D deficiency 347 58199 E55.9 Get labs Melendez's esophagus 3029 24402 K22.70 On omeprazole 05/02/2023 : EGD Tonja eds a follow up with GI EGD 01/04/2024 : 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 Addendum: 04/03/2024 :See case, needs to get another EGD, he was notified Chronic pain 99845206 G8 9.29 Referred to pain management 11/29/2023 ,Advised not to take any NSAIDs d/t CAD and CKD issuesOK to refill his methocarba mol to take as needed in very limited quantities , if he needs more see pain management Abdominal pain 34821267 R10.9 Seen in the ER on 09/19/2023 [...] Does well now Acute magi rgic reaction 769172481 T78.40XA Seen in ERTreated with steroids, now is doing well Chronic ki dney disease 328142864 N18.9 On calcitriol On chlorthali done 25mg dailyOn losartan 50mg daily Sees Dr Hinson IJ Pain of bi lateral hip joints 9439500225 8368008 M25.551 M25.552 Marcus ADAMS 01/01/2024 Screening for malignant neoplasm of prostate 000086552 Z12.5 Transition of care 97365 56347 105 Z75.8 Pneumonia 505666974 J18. 9 S/p d/c from [facility] 05/30/2024 Started on Lantus 10U q hsCBC: 05/30/2024 CMP: 05/30/2024 : BUN 33, Gluc 557 [id number] Duncan Suarez MD [facility] [address] 06/04/2024 10:57:31 06/04/2024 13:02:53 Dyspnea on exertion 65698192 R06.09 R05.9 T78.40XA D89.9 Solitary n odule of lung 499544795 R91.1 [id number] Caitlin albright MD [facility] Internal Med [facility] [address] [place] [address] 07/08/2024 14:04:51 07/08/2024 15:29:26 Screening - NAD 833618467 Z13.9 C-scope: 05/02/2023 , Dr Randolph navarro [...] 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 351239556 E11.9 On metformin ER 500mg bidOn Farxiga [...] Not on olmesartan Get labs Penile candidiasis 24701 8000 B37.49 No more rash noted, he is using his nystatin-t rimacinolo ne cream and states that the rash is cleared up now Hyperlipidemia 29549558 E78.5 On ASAOn atorvastat in 40mg daily Not on rosuvastat in 40mg dailyGet labs Chronic ob structive pulmonary disease 05425436 J44.9 On albuterolO n HHNsOn trelegy Needs to keep apt with Dr Suarez!Today 05/26/2024 : Severe SOB and YAN, at this, he was referred to ER, 911 ambulance called and [facility] OV 06/04/2024 :Dr Suarez 06/04/2024 , [...] f/u on 07/08/2024 Carotid ar angel stenosis 29796312 I65.29 S/p stent in 03/09On ASANot on plavixDr Bette [facility] 02/21/2024 , next in 6 months Restless legs 38202324 G 25.81 Not on requipOn lyrica 75mg in am and [address] Riojas well Ex-cigarette smoker 2810 10249 Z87.891 LDCT 09/21/2022 Get US AAA done as US AAA 04/04/2023 was non diagnostic d/t bowel gas US AAA 09/18/2023 : Neg Coronary arteriosclerosis 54557763 I25.10 CAD noted On losartan 50mg daily Dr Sravan palma done 25mg dailyOn metoprolol ER 50mg dailyDr Bette 02/20/2023 Transient cerebral ischemia 475623507 G45.9 CT Angio: 02/28/2023 : High grade stenosis, R ICA, s/p stent He does see Dr Schumacher his neurologis t, get last OV note S/p hospitaliz ation, does very well now, no residual symptoms at this timeOn ASANot on plavixNot on atorvastat in On rosuvastat in 40mg daily Liver enzy mes level above reference range 716003192 R74.8 ALP 128 03/28/2023 Get labs and US liver Addendum: 12/07/23US liver 12/03/2023 : Hepatic steatosis, triage notified Proteinuria 62976192 R80 .9 US kidney 05/25/2023 : Dr Hinson IJ Pain of ri ght knee joint 3521443497 84562 M25.561 MRI R knee: 06/07/2023 : Dr Lemon erred to Dr Hernandez Male hypogonadism 631206 06 E29.1 Get labs Serum shane min B12 below reference range 122815123 R79.89 Vitamin D deficiency 347 63753 E55.9 Get labs Melendez's esophagus 3029 98255 K22.70 On omeprazole 05/02/2023 : EGD BarrettsNe eds a follow up with GI EGD 01/04/2024 : 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 Addendum: 04/03/2024 :See case, needs to get another EGD, he was notified Chronic pain 89383314 G8 9.29 Referred to pain management 11/29/2023 ,Advised not to take any NSAIDs d/t CAD and CKD issuesOK to refill his methocarba mol to take as needed in very limited quantities , if he needs more see pain management Abdominal pain 37865212 R10.9 Seen in the ER on 09/19/2023 [...] Does well now Acute magi rgic reaction 129732211 T78.40XA Seen in ERTreated with steroids, now is doing well Chronic ki dney disease 872508156 N18.9 On calcitriol On chlorthali done 25mg dailyOn losartan 50mg daily Sees Dr Hinson IJ Pain of bi lateral hip joints 7625006556 7074116 M25.551 M25.552 Marcus ADAMS 01/01/2024 Pneumonia 755946822 J18. 9 S/p d/c from [facility] 05/30/2024 Started on Lantus 10U q hsCBC: 05/30/2024 CMP: 05/30/2024 : BUN 33, Gluc 468 [id number] Duncan Suarez MD [facility] [address] 07/08/2024 16:41:56 07/09/2024 11:52:16 Solitary nodule of lung 513950366 R91.1 Mild chron ic obstructive pulmonary disease 738304516 J44.9 Posterior rhinorrhea 758 37543 R09.82 [id number] Bailey Hernandez MD [facility] [place] [address] [place] [address] 07/16/2024 10:31:14 07/16/2024 11:32:17 Pain of right knee joint 2194063692 04498 M25.266 [id number] Duncan Suarez MD [facility] [address] [address] 08/27/2024 08:36:07 08/27/2024 16:32:18 Solitary nodule of lung 223454842 R91.1 Mild chron ic obstructive pulmonary disease 500197034 J44.9 Posterior rhinorrhea 758 19726 R09.82 Dysphonia 59571849 R49.9 [id number] Caitlin albright MD [facility] Internal Med [facility] [address] [facility] [place] [address] 10/07/2024 11:44:35 10/07/2024 12:32:19 Screening - NAD 923780511 Z13.9 C-scope: 05/02/2023 , Dr Dickson next [...] 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 906550357 E11.9 On metformin ER 500mg bidNot on [...] Not on olmesartan Get labs Penile candidiasis 76552 8000 B37.49 No more rash noted, he is using his nystatin-t rimacinolo ne cream and states that the rash is cleared up now Hyperlipidemia 86762633 E78.5 On ASAOn atorvastat in 40mg daily Not on rosuvastat in 40mg dailyGet labs Chronic ob structive pulmonary disease 96089964 J44.9 On albuterolO n HHNsOn trelegy Needs to keep apt with Dr Suarez!Today 05/26/2024 : Severe SOB and YAN, at this, he was referred to ER, 911 ambulance called and [facility] OV 06/04/2024 :Dr Suarez 06/04/2024 , [...] to see ENT Carotid ar angel stenosis 58632498 I65.29 S/p stent in 03/09On ASANot on plavixDr Bette [facility] 02/21/2024 , next in 6 months Restless legs 17678634 G 25.81 Not on requipNot on lyrica 75mg in am and [address] Riojas well Ex-cigarette smoker 2810 58375 Z87.891 LDCT 09/21/2022 Get US AAA done as US AAA 04/04/2023 was non diagnostic d/t bowel gas US AAA 09/18/2023 : Neg Coronary arteriosclerosis 77104418 I25.10 CAD noted On losartan 50mg daily Dr Sravan OTEROOn chlorthali done 25mg dailyOn metoprolol ER 50mg dailyDr Bette 02/20/2023 Referred 10/07/2024 Transient cerebral ischemia 936735125 G45.9 CT Angio: 02/28/2023 : High grade stenosis, R ICA, s/p stent He does see Dr Schumacher his neurologis t, get last OV note S/p hospitaliz ation, does very well now, no residual symptoms at this timeOn ASANot on plavixNot on atorvastat in On rosuvastat in 40mg daily Liver enzy mes level above reference range 782118883 R74.8 ALP 128 03/28/2023 Get labs and US liver Addendum: 12/07/23US liver 12/03/2023 : Hepatic steatosis, triage notified Proteinuria 53566894 R80 .9 US kidney 05/25/2023 : Dr Hinson IJ Pain of ri ght knee joint 5153618611 45181 M25.561 MRI R knee: 06/07/2023 : Dr Lemon erred to Dr Hernandez Male hypogonadism 093908 06 E29.1 Get labs Serum shane min B12 below reference range 536567128 R79.89 Vitamin D deficiency 347 08340 E55.9 Get labs Melendez's esophagus 3029 81773 K22.70 On omeprazole 05/02/2023 : EGD Tonja soni a follow up with GI EGD 01/04/2024 : 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 Addendum: 04/03/2024 :See case, needs to get another EGD, he was notified Chronic pain 52089123 G8 9.29 Referred to pain management 11/29/2023 ,Advised not to take any NSAIDs d/t CAD and CKD issuesOK to refill his methocarba mol to take as needed in very limited quantities , if he needs more see pain management Abdominal pain 15560336 R10.9 Seen in the ER on 09/19/2023 [...] Does well now Acute magi rgic reaction 392735560 T78.40XA Seen in ERTreated with steroids, now is doing well Chronic ki dney disease 488650365 N18.9 On calcitriol On chlorthali done 25mg dailyOn losartan 50mg daily Sees Dr Sravan OTERO Pain of bi lateral hip joints 4247660267 5304714 M25.551 M25.552 Marcus ADAMS 01/01/2024 Dysphonia 19832019 R49.9 Was referred to ENT on 08/27/[address] Suarez's note Pain of le ft shoulder joint 1085195606 2519262 M25.512 Slipped and fell on ice 10 days ago, unable to lift L shoulder, s/p ER visit at [facility] start on meloxicam and refer to ortho [id number] Bailey Hernandez MD [facility] [place] [address] [place] [address] 10/08/2024 14:23:45 10/08/2024 14:44:35 Pain of left shoulder joint 0206909650 4939369 M25.119 [id number] Caitlin albright MD [facility] [place] [address] 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 427936800 E11.9 On metformin ER 500mg bidNot on [...] Not on olmesartan Get labs Penile candidiasis 47710 8000 B37.49 On nystatin-t rimacinolo ne cream as needed Hyperlipidemia 87292565 E78.5 On ASAOn atorvastat in 40mg daily Not on rosuvastat in 40mg dailyGet labs Chronic ob structive pulmonary disease 44327768 J44.9 On albuterolO n HHNsOn gil Needs to keep apt with Dr Suarez!Today 05/26/2024 : Severe SOB and YAN, at this, he was referred to ER, 911 ambulance called and [facility] OV 06/04/2024 :Dr Suarez 06/04/2024 , [...] apt on 11/25/2024 Carotid ar angel stenosis 85432050 I65.29 S/p stent in ASANot on plavixDr Bette [facility] 02/21/2024 , next in 6 monthsDr Bette [facility] 08/11/2024 , f/u in 6 weeks and was to get US renal artery Restless legs 37455138 G 25.81 Not on requipNot on lyrica 75mg in am and [address] Riojas well Ex-cigarette smoker 2810 23358 Z87.891 LDCT 09/21/2022 Get US AAA done as US AAA 04/04/2023 was non diagnostic d/t bowel gas US AAA 09/18/2023 : Neg Coronary arteriosclerosis 28690944 I25.10 CAD noted On losartan 50mg daily Dr Sravan OTERO, is not taking this as per his historyOn chlorthali done 25mg dailyOn metoprolol ER 50mg daily, refilled 11/20/2024 , was not takingDr Bette 02/20/2023 Referred 10/07/2024 , 11/20/2024 Keep BP Transient cerebral ischemia 313964961 G45.9 CT Angio: 02/28/2023 : High grade stenosis, R ICA, s/p stent He does see Dr Schumacher his neurologis t, get last OV note S/p hospitaliz ation, does very well now, no residual symptoms at this timeOn ASANot on plavixOn atorvastat in renewed 11/20/2024 Not on rosuvastat in 40mg daily Liver enzy mes level above reference range 426622299 R74.8 ALP 128 03/28/2023 Get labs and US liver Addendum: 12/07/23US liver 12/03/2023 : Hepatic steatosis, triage notified Proteinuria 22450467 R80 .9 US kidney 05/25/2023 : Dr Hinson IJ Pain of ri ght knee joint 5040919954 13505 M25.561 MRI R knee: 06/07/2023 : Dr Wilkins Male hypogonadism 335482 06 E29.1 Get labs Serum shane min B12 below reference range 774473279 R79.89 Vitamin D deficiency 347 22167 E55.9 Get labs Melendez's esophagus 3029 21866 K22.70 On omeprazole 05/02/2023 : EGD BarrettsNe eds a follow up with GI EGD 01/04/2024 : 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 Addendum: 04/03/2024 :See case, needs to get another EGD, he was notified Chronic pain 93090523 G8 9.29 Referred to pain management 11/29/2023 ,Advised not to take any NSAIDs d/t CAD and CKD issuesOK to refill his methocarba mol to take as needed in very limited quantities , if he needs more see pain management Abdominal pain 38707709 R10.9 Seen in the ER on 09/19/2023 [...] Does well now Acute magi rgic reaction 197329451 T78.40XA Seen in ERTreated with steroids, now is doing well Chronic ki dney disease 694885753 N18.9 On calcitriol On chlorthali done 25mg dailyOn losartan 50mg daily Sees Dr Sravan OTERO Pain of bi lateral hip joints 5513978319 0981350 M25.551 M25.552 Marcus ADAMS 01/01/2024 Dysphonia 40161411 R49.9 Was referred to ENT on 08/27/[address] Suarez's note Pain of le ft shoulder joint [id number] M25.512 Slipped and fell on ice 10 days ago, unable to lift L shoulder[facility] [...] remain a moderate risk for this procedure [id number] Bailey Hernandez MD [facility] [address] [place] [address] 12/03/2024 14:47:58 12/03/2024 16:19:34 Pain of left shoulder joint [id number] M25.512 Health Concerns Section Related Observation LastModified by Organization Detai ls LastModified Time None Recorded Concern Status LastModified by Organization Details LastModified Time None Recorded Advance Directives Directive Y: Patient stated he needs t o update since . Recommended working with an compliance attorney. Payers Encounter Date Sequence Insurance Name Policy Number Policy Santana Covered Member ID Santana Member ID Guarantor Name 08/27/2024 1 [facility] - MEDICARE COMPLETE - CHOICE PLAN 2 (MEDICARE REPLACEMENT REGIONAL PPO) [id number] Navid Rodríguez [id number] Navid Rodríguez 10/07/2024 1 [facility] - AARP - MEDICARE COMPLETE - CHOICE PLAN 2 (MEDICARE REPLACEMENT REGIONAL PPO) [id number] Navid Rodríguez [id number] Navid Rodríguez 10/08/2024 1 [facility] - MEDICARE COMPLETE - CHOICE PLAN 2 (MEDICARE REPLACEMENT REGIONAL PPO) [id number] Navid Rodríguez [id number] Navid Rodríguez 11/20/2024 1 [facility] - AARP - MEDICARE COMPLETE - CHOICE PLAN 2 (MEDICARE REPLACEMENT REGIONAL PPO) [id number] Navid Rodríguez [id number] Navid Currymarla 12/03/2024 1 [facility] - AARP - MEDICARE COMPLETE - CHOICE PLAN 2 (MEDICARE REPLACEMENT REGIONAL PPO) [id number] Navid Rodríguez [id number] Navid Rodríguez Notes Date Note Type Note Provider Name and Address Organization Details Recorded Time 08/27/2024 text/html Primary care/Referring provider: Caitlin Moreno MD CC: I have hoarseness of voice and I could not sing in the long-term. Patient is here to go over his mild COPD management. Initial development of shortness of breath: 2011Duration of shortness of breath: 13 yearsCondition of shortness of breath: stableTiming of shortness of breath: morningFrequency: up to 3 times a dayLimits activities: yesAggravating factors: walking, doing yard workAlleviating factors: rest Modified [employer] [place] (mMRC) Dyspnea Scale - Grade 1Grade 0 [...] uoneb since 2016 Spiriva Handihaler once daily [id number] Symbicort HFA 160/4.5 mcg 2 puffs BID [...] yesEdema: no Environmental exposures:Nicotine smoke: 1 ppd 4576-8968 (quit 12 years in between) = 41 [...] dozing. Duncan Suarez MD [address], [address], [place], [address], [place] [facility] 08/27/2024 09:34:58 10/07/2024 text/html OV 03/28/2023: H ere to establish carePast Hx:HLDCOPDDMIITIARevi ewed social family and surgical historyHere to discuss above, admitted to [facility] on 02/28/2023 for TIA with L [...] UTI, seen in the ER at [facility] 09/24/2023, treated with antibiotic and also [...] 05/26/2024: Here post hosp, d/c from [facility] 05/14/2024 for SOB, today very SOB and has ongoing cough, he is extremely fatigued, c/o wheezing also, states that he is worse since his d/c from [facility] on 05/14/2024 OV 06/04/2024: Here for [...] he did see Dr Daniela Moreno MD [address] [place] [address], [address], [place], [address], [facility] [employer] 10/10/2024 11:49:03 11/20/2024 text/html OV 03/28/2023: H ere to establish carePast Hx:HLDCOPDDMIITIARevi ewed social family and surgical historyHere to discuss above, admitted to [facility] on 02/28/2023 for TIA with L [...] UTI, seen in the ER at [facility] 09/24/2023, treated with antibiotic and also [...] 05/26/2024: Here post hosp, d/c from [facility] 05/14/2024 for SOB, today very SOB and has ongoing cough, he is extremely fatigued, c/o wheezing also, states that he is worse since his d/c from [facility] on 05/14/2024 OV 06/04/2024: Here for [...] has shoulder pain Caitlin Moreno MD [address], [address], [place], [address], [place] [facility] 01/06/2025 14:51:30
--- OUTSIDE RECORDS SUMMARY | 2025-02-10 15:45 | XMS_ITS | CONTINUITY OF CARE DOCUMENT ---
Author Name cruz kitoctavio Address Unknown Organization [facility] Address [address] [place] [address] Phone [phone] Care Team Providers Care Transportation Maintenance Operator Name Role Phone Derrick Amos MD [...] In-person encounter Office Visit Steven Shaw NP [facility] - In-person encounter Office Visit Derrick Amos MD [facility] - In-person encounter Office Visit Derrick Amos MD [facility] Cardiology examination - In-person encounter Office Visit Derrick Amos MD [facility] TOBACCO ABUSE-QUIT - In-person encounter Office Visit Derrick Amos MD [facility] - In-person encounter Office Visit Derrick Amos MD [facility] - In-person encounter Office Visit Derrick Amos MD [facility] - In-person encounter Office Visit Derrick Amos MD [facility] CVA - In-person encounter Office Visit Derrick Amos MD [facility] - In-person encounter Office Visit Marshal Milner MD [facility] Preop examHypertensionDyslipidemiaDiabetes mellitusCOPDShortness of breathTOBACCO ABUSE-QUITArrhythmia VITAL SIGNS Date Observation Value Provider Body Mass Index (Ratio) 22.31 kg/m2 Arnie Shaw NP blood pressure, diastolic 101 mm[Hg] emerald Lim blood pressure, systolic 179 mm[Hg] Danna laura Lim oxygen saturation, oximetry 95 % [facility] 71 /min [facility] respiratory rate E&M 12 /min [facility] weight E&M 130 [lb_av] [facility] height E&M 64 [in_i] [facility] blood pressure, cuff size regular An [...] morrison Aleman oxygen saturation, oximetry 94 % [facility] pulse rate 87 /min Kmaron Aleman weight E&M 143.6 [lb_av] Kmaron Aelman height E&M 64 [in_i] Kmaron Aleman blood [...] Amos MD blood pressure, cuff size regular [facility] blood pressure, diastolic 93 mm[Hg] Ja rr blood pressure, systolic 169 mm[Hg] Jar ret pulse rate 63 /min Lucas oxygen saturation, oximetry 96 % respiratory rate E&M 16 /min Lucas weight E&M 137 [lb_av] Lucas height E&M 64 [in_i] Lucas Body Mass Index (Ratio) 23.34 kg/m2 Ricky Albright blood pressure, cuff size regular [facility] blood pressure, diastolic 95 mm[Hg] Ja blood pressure, systolic 176 mm[Hg] [facility] pulse rate 58 /min Lucas respiratory rate E&M 16 /min Lucas oxygen saturation, oximetry 98 % weight E&M 136 [lb_av] Lucas height E&M 64 [in_i] Lucas y Body Mass Index (Ratio) 23.51 kg/m2 Portia Amos MD blood pressure, diastolic 90 mm[Hg] Barbie Karimi blood pressure, systolic 155 mm[Hg] She robetra Karimi pulse rate 61 /min Jazzy Karimi [...] pressure, diastolic, right arm 80 m m[Hg] [place] blood pressure, systolic, right arm 130 m m[Hg] blood pressure, diastolic 80 mm[Hg] Ki blood pressure, systolic 130 mm[Hg] Yane cuevas Brody oxygen saturation, oximetry 97 % respiratory rate E&M 16 /min pulse rate 64 /min [facility] weight E&M 143 [lb_av] height E&M 64 [in_i] blood pressure, resting Yes Kill n Brody ALLERGIES No Known Drug Allergies HISTORY OF MEDICATION USE Medication Status Instructions Dates Provider Indications [facility] mentviridiana chlorthalidone 25 mg tablet active [...] number of years as a smoker 45+ Derrcik Amos MD smoking history, tot al pack/day [...] currently 1/2 Angel Quarles cigarette use yes [place] number of grandchildren Marshal Milner MD [...] Payer name Policy type / Coverage type [employer] red alliance party ID AARP MEDICARE ADVANTAGE ([facility] COMPLETE PPO) Other [id number] ADVANCE DIRECTIVES Name Date DISCUSSED - NO DECISION MADE TREATMENT PLAN Date Name Performer [id number],C,Per pcp Derrick Amos MD [id number],C,S tent to carotid. he should be on astatin but I am not sure. Derrick Amos MD [id number],C,N ot sure what he is on but he will see his PCP for a list of current meds B P today: 155/90 P rior BP: 176/100 (04/12/2023) Derrick Amos MD [id number],C,l ow risk for colonoscopy. BP is not well controlled, will have him come back in a week for BP check Derrick Amos MD [id number],C,n ot well controlled W ill add olmesartan [...] ago he had irregular heart beats. Angel Quarlse Cardiology:He is a h eavy smoker. He has exertional dyspnea. EKG does not show any major abnormalities. He has multiple risk factors. Will obtain an echo to assess LV function. If LV function is preserved, he can proceed to surgery at this time. Angel Avitiaberg Cardiology:Pt is a c andidate for hip surgery. Denies hx of [place] or chest pain. He reports many years [...] on Derrick Amos MD completed EKG Derrick Amso MD completed Counseling LDCT Marshal Milner MD compl eted EKG Marshal Milner MD completed
--- OUTSIDE RECORDS SUMMARY | 2025-02-10 15:45 | XMS_ITS ---
Author Organization [facility] Address [address] [facility] [address] [address] [place] [address] Care Team Providers Care Psychological Stress Evaluator Name Role Phone SravanHemalathaOwne Unavailable [phone] Medications Medication SIG (Take, Route, Frequency, Duration) Notes Start Date End Date Status Calcitriol 0.25 MCG 1 capsule Orally corrine ry other day for 90 05/30/2023 02/24/2024 Active Losartan Potassium 50 MG 1 tablet Orally Once a day for 90 05/30/2023 Active Ergocalciferol 1.25 MG (05292 UT) 1 capsule Orally Once a week for 90 day(s) 08/29/2023 05/25/2024 Active Social History Sex Assigned At : Social History Observation Description Sex Assigned At Male Encounters Encounter Location Date Provider Diagnosis [place] [facility] [address] [facility] [address] [place] [address] 01/23/2024 Owen Hinson Chronic kidney disease, stage [...] J44.1) 01/23/2024 Essential hypertension (ICD-10 - I10) Plan Of Treatment No Information Progress Notes * CRISS CALERODOB: [birth year] (74 yo M)Acc No.[id number]:01/23/2024 Progress Notes Patient: CRISS FORRESTER Provider: Yao GARCIA MD, Fabian, F.A.S.N. :1950 A ge:73 Y S ex:Male Date:01/23/2024 Address:[address] [place] [address] Subjective: * Chief Complaints: * * Medical History: * Medications: T aking Losartan Potassium 50 MG Tablet 1 tablet Orally Once a day , Taking Calcitriol 0.25 MCG Capsule 1 capsule Orally every other day , stop date 02/24/2024, Taking Ergocalciferol 1.25 MG (00625 UT) Capsule 1 capsule Orally Once a [...] Treatment: * Billing Information: * Visit Code: 27844 Office Visit, Est Pt., Level 4. * Procedure Codes: * Electronic signature of Marisela Hinson MD on 02/10/2025 at 03:45 PM CDT Sign off status: Pending * Provider: Yao GARCIA MD, Fabian, F.A.S.N. Date: 0 01/23/2024 Generated for Printing/Faxing/eTransmitting on: 0 02/10/2025 03:45 PM CDT
--- OUTSIDE RECORDS SUMMARY | 2025-02-10 15:45 | XMS_ITS | Clinical Summary ---
Author Organization [facility] [employer] Address [address] [place] [address] Care Team Providers Care Chief Bank Examiner Name Role Phone Unavailable Primary Care Provider Unavailabl e Source Comments [facility] [employer],non-owned Affiliates and Associated Physician Practices is amultiple site organization consisting of ambulatory clinics and hospital sitesin [place], [place], [place] and [place]. This disclosure is being madepursuant to the Care Everywhere program and may not contain all information available regarding this patient. Last updated 18.[facility] [employer] Allergies No known active allergies Medications * [...] Date Recorded PHQ2 TOTAL SCORE 0 03/07/2023 [facility] - [facility]ational [...] place to sleep or slept in a usp (including now)? No 03/03/2023 Sex and Gender [...] 4:08 AM CDT Height 162.6 cm (5' 4) 03/06/2023 12:3 0 PM CDT Body Mass [...] this topic Medical Devices Implanted Type Area Jigsawyer Device Identifier Shelf Expiration Date Model / Serial / Lot Stent Enroute Uber Flx 7mm .065in 40mm Implanted:Qty : 1 on 03/05/2023 by Betty Crane DO at [facility] Stent - Vascular Right: Arterial Top Image Systems [facility] 04/16/2025 [id number] / / [id number] Description:IMPLANTED RIGHT CAROTID ARTERY Insurance [facility] MANAGED MEDICARE ADV Advance Directives * Full Code (Latest Code Status on File) Date Activated Date Inactivated Comments 03/03/2023 5:15 AM 03/08/2023 8:02 PM
--- OUTSIDE RECORDS SUMMARY | 2025-02-10 15:45 | XMS_ITS ---
Author Organization [facility] Address [address] [address] [place] [address] Care Team Providers Care Pricing Clerk Name Role Phone Duy Hinsonjit Unavailable [phone] Medications Medication SIG (Take, Route, Frequency, Duration) Notes Start Date End Date Status Losartan Potassium 50 MG 1 tablet Orally Once a day for 90 05/30/2023 Active Social History Sex Assigned At : Social History Observation Description Sex Assigned At Male Encounters Encounter Location Date Provider Diagnosis [place] [facility] [address] [facility] [address] [place] [address] 08/01/2024 Owen Hinson Chronic kidney disease, stage [...] * CRISS CALERODOB: [birth year] (74 yo M)Acc No.[id number]:08/01/2024 Progress Notes Patient: CRISS FORRESTER Provider: Yao GARCIA MD, F.A.C.P, F.A.S.N. :1950 A ge:74 Y S ex:Male Date:08/01/2024 Address:[address] [place] [address] Subjective: * Chief Complaints: * * Medical [...] Treatment: * Billing Information: * Visit Code: 63140 Office Visit, Est Pt., Level 4. * Procedure Codes: * Electronic signature of Marisela Hinson MD on 02/10/2025 at 02:22 PM CDT Sign off status: Pending * Provider: Yao GARCIA MD, F.A.C.P, F.A.S.N. Date: 10/01/2023 Generated for Printing/Faxing/eTransmitting on: 0 02/10/2025 02:22 PM CDT
--- OUTSIDE RECORDS SUMMARY | 2025-02-10 15:45 | XMS_ITS | Patient Health Record ---
Author Organization [facility] Address [address] [place] [address] Care Team Providers Care Intensive Care Unit Registered Nurse Name Role Phone Sravan Owen Unavailable [phone] Reason For Referral No Information Medications Medication SIG (Take, Route, Frequency, Duration) Notes Start Date End Date Status Calcitriol 0.25 MCG 1 capsule Orally Onc e a day for 90 day(s) 08/01/2024 04/28/2025 Active Losartan Potassium 50 MG 1 tablet Orally Once a day for 90 05/30/2023 Active Social History Sex Assigned At : Social History Observation Description Sex Assigned At Male Problems Problem Type SNOMED Code ICD Code Onset Dates Problem Status W/U Status Risk Notes Problem Hyperglycemia due to type 2 diabetes mellitus (895159093837407) Type 2 diabetes mellitus with hyperglycemia (E11.65) Active confirmed Problem Acute exacerbation of chronic obstructive airways disease (839491606) Chronic obstructive pulmonary disease with (acute) exacerbation (J44.1) Active confirmed Problem Chronic kidney disease stage 2 (422078328) Chronic kidney disease, stage 2 (mild) (N18.2) Active confirmed Problem Proteinuria (90201976) Other proteinuria (R80.8) Active confirmed Problem Essential hypertension (20013752) Essential hypertension (I10) Active confirmed Encounters Encounter Location Date Provider Diagnosis [place] [facility] [address] [address] 08/01/2024 Owen Hinson Chronic kidney disease, stage 2 (mild) N18.2 ; Other proteinuria R80.8 ; Type 2 diabetes mellitus with hyperglycemia E11.65 ; Chronic obstructive pulmonary disease with (acute) exacerbation J44.1 and Essential hypertension I10 [place] [facility] [address] [address] 08/01/2024 Owen Hinson Assessments Encounter Date Diagnosis (ICD Code) Assessment [...]
[2025-02-10 15:57] LABS: Basophils Percent Auto 0.5 % (0.2-1.2); Eosinophils Absolute Auto 0.1 K/mm3 (0-0.3); Eosinophils Percent Auto 1.1 % (0-4.4); Hematocrit 45.3 % (42.0-52.0); Hemoglobin 14.9 g/dL (14.0-18.0); Immature Granulocyte Absolute 0.02 K/mm3 (0.00-0.031); Immature Granulocyte Percent A 0.3 % (0-0.5); Lymphocytes Absolute Auto 1.79 K/mm3 (0.9-3.2); Lymphocytes Percent Auto 23.9 % (18.3-44.2); Mean Corpuscular HGB Conc 32.9 g/dl (32-36); Mean Corpuscular Volume 91.3 fl (80-100); Mean Platelet Volume 9.3 fl (7.4-10.4); Monocytes Absolute Auto 0.6 K/mm3 (0.1-0.6); Monocytes Percent Auto 8.4 % (2.6-8.5); Neutrophils Absolute Auto 4.9 K/mm3 (1.3-6.7); Neutrophils Percent Auto 65.8 % (45.5-73.1); Platelet Count Result 221 k/mm3 (150-375); Red Blood Count 4.96 M/mm3 (4.6-6.20); Red Cell Distribution Width 14.8 % (11.5-14.5); White Blood Count 7.5 K/mm3 (4.5-10.0)
[2025-02-10 16:46] LABS: Alanine Aminotransferase 22 U/L (6-50); Albumin Level 4.5 g/dL (3.5-5.1); Alkaline Phosphatase 105 U/L (38-126); Anion Gap 7 mmol/L (4-12); Aspartate Amino Transferase 35 U/L (17-59); Bilirubin,Total 1.2 mg/dL (0.2-1.3); Blood Urea Nitrogen 27 mg/dL (9-20); Calcium 9.8 mg/dL (8.4-10.2); Carbon Dioxide 30 mmol/L (22-30); Chloride 101 mmol/L (98-107); Estimated Glomerular Filt Rate > 60; Glucose 151 mg/dL (65-110); Potassium 3.8 mmol/L (3.4-5.0); Sodium 138 mmol/L (137-145)
[2025-02-10 17:15] LABS: Prostate Specific Antigen 0.8 ng/mL (< OR = 4.0)
[2025-02-12 19:54] LABS: Albumin 4.2 g/dL (3.8-4.8); Alpha 1 Globulin 0.3 g/dL (0.2-0.3); Alpha 2 Globulin 0.9 g/dL (0.5-0.9); Beta 1 Globulin 0.5 g/dL (0.4-0.6); Gamma Globulin 0.8 g/dL (0.8-1.7)
== END 2025-02-10 15:42 | disposition home or self-care (01) ==
LOC: ANHLAB 15:42
PROVIDERS: PCP Internal Medicine; Visit Provider Internal Medicine Hematology & Oncology
DX: C79.51 Secondary malignant neoplasm of bone (principal)
CPT/HCPCS: 36415; 80053; 84153; 84155; 84165; 85025

== ENCOUNTER 2025-02-12 02:22 | Day surgery (SDC) | payer MEDICARE, SELFPAY ==
[2025-02-03 09:46] VITALS: BMI 21.9
--- NOTE | 2025-02-03 10:02 | PC.NURSE ---
Report to the Outpatient Waiting Room, entrance under the green pavilion located off [facility], at time __1000am on date _02/12/25 . Planned Procedure Time: __1200pm .? Time changes happen often and if your time is changed the preop area will call you the afternoon before. - You and your visitor will be asked to self-screen and do not enter if you have any COVID symptoms. Please call surgeon if you need to reschedule. - A mask is optional within the hospital at this time. Patients may have clear liquids (water, carbonated beverages, clear teas, apple juice) until 3 hours prior to surgery with a maximum of 20 ounces. - No food from midnight until time of surgery and no smoking, or chewing tobacco (or any form of nicotine). No chewing gum, candy or mints.(09:00AM) Take only the following medications with a SIP of water on the morning of surgery: _Metoprolol, Methocarbanol, Ellipta and Albuteral inhalers, Oxycodone if needed DO NOT STOP ANY OF YOUR OTHER PRESCRIPTION MEDICATIONS PRIOR TO SURGERY EXCEPT THE FOLLOWING Hold all vitamins and supplements for 3 days per anesthesiologist.Date to take 02/08/25 Medications to discontinue per physician None Date to take last dose None Please no make-up, nail ghanaian, hairspray, perfume, deodorant, or body powder the day of surgery.? No jewelry (including any body piercings) or valuables the day of surgery, leave them at home.? Please take a shower or bath the night before, or the morning of, surgery with an antibacterial soap.? HIBICLEANSE PREP as directed Wear comfortable, loose fitting clothing.? - Jewelry must be removed prior to entering the operating room.? Rings and piercings that are not removed may be cut off. - The hospital will not accept responsibility for valuables.? - Please leave all valuables, including medications, at home the day of surgery. If you are going home after surgery, a licensed shuttle truck driver must drive you home.? - NO public transportation without another adult if you receive anesthesia. - We recommend that an adult stay with you for 24 hours following discharge. - We also recommend that you do not drive, make important decision, drink alcoholic beverages, or take any drugs that were not prescribed by your health care provider for at least 24 hours after your discharge time. Follow any additional instructions given to you from your surgeon. Telephone instructions given to __Patient and asked if any additional questions and then verbalized understanding. Patient advised to call surgeon office or pre surgery nurse liaison [phone] if any additional questions.
--- NOTE | 2025-02-11 12:15 | PM.IMHP ---
H&P: HPI History of Present Illness Date/Time: 02/11/25 12:15 Chief Complaint: Traumatic rotator cuff tear left shoulder Narrative: 74-year-old male who presents today for arthroscopy of the left shoulder with mini open rotator cuff repair proceed as indicated. Patient injured his shoulder in February of this year. He fell on the ice. He had immediate pain following fall. Since the fall he is noticed diminished function in the shoulder. He has less strength and has had continued pain. He has been on anti-inflammatories for short course without improvement. He went to several visits with therapy to try to improve his pain but this did not help. Patient had an MRI scan early December this year showed a tear of the entire with of the supraspinatus tendon as well as the majority of the infraspinatus tendon. It is retracted. There is minimal fatty infiltration that suggests that this is an acute tear. This point patient is having symptoms of pain on a daily basis. He is notice that the arm is weak. He typically is a very active individual and would rather proceed with surgery at this point rather than to live with the symptoms he has. Review of Systems Review of Systems: All systems reviewed & are unremarkable except as noted in HPI and below PMFSH Past Medical History Medical History Diabetes COPD (chronic obstructive pulmonary disease) Hypertension Hyperlipidemia COPD (chronic obstructive pulmonary disease) Diabetes Hypertension Surgical History Surgical History H/O neck surgery Previous back surgery History of hip surgery No pertinent past surgical history Family History Family History Mother Acute myocardial infarction Congestive heart failure Chronic obstructive pulmonary disease Hypertension Asthma Sibling History of blood clots Colon cancer Grandparent Cerebrovascular accident Social History Social History Smoking packs per day: 1 Smoking cigarettes per day: 20.0 Years smoked: 50 Smoking pack-years: 50.00 Smoking status: Former smoker Tobacco type: cigarettes Smoking end date: 02/15/23 Alcohol intake: former Alcohol use details: not drank in 15 yrs, Heavy drinker before Substance use: current Substance use type: painkillers Other substance usage details: Pain killers for shoulder injury Do You Feel Safe in your Home?: Yes Lack of Transportation: No Lack of Food: Sometimes True Current Housing: I Have Housing Concerned About Future Housing: No Difficulty Paying Gas/Electric Bills: YES Difficulty Paying for Meds: YES Currently Unemployed: No Education: High School Diploma/GED Difficulty w/ Childcare or Family Care: No Living arrangements: alone Occupation/Education: retired Spiritual care concerns: No Meds Home Medications and Allergies Home Medications ?Medication ?Instructions ?Recorded ?Confirmed ?Type calcitriol 0.25 mcg capsule 0.25 mcg PO EVERY OTHER DAY 05/26/24 02/03/25 History empagliflozin 10 mg tablet 10 mg PO DAILY 05/26/24 02/03/25 History (Jardiance) ergocalciferol (vitamin D2) 1,250 1,250 mcg PO WEEKLY 05/26/24 02/03/25 History mcg (50,000 unit) capsule metformin 500 mg tablet,extended 500 mg PO BID 05/26/24 02/03/25 History release 24 hr methocarbamol 750 mg tablet 750 mg PO TID PRN muscle spasms 05/26/24 02/03/25 History lansoprazole 30 mg capsule,delayed 30 mg PO DAILY #90 caps 12/16/24 02/03/25 Rx release oxycodone 5 mg tablet 2.5 mg (1/2 x 5 mg) PO Q4H PRN 12/29/24 02/03/25 Rx pain #20 tabs atorvastatin 40 mg tablet 40 mg PO DAILY 01/26/25 02/03/25 History albuterol sulfate 2.5 mg/3 mL 2.5 mg (3 mL) inhalation Q4H PRN 01/29/25 02/03/25 Rx (0.083 %) solution for nebulization shortness of breath or wheezing #75 mL albuterol sulfate 90 mcg/actuation 2 puff inhalation Q6H PRN 01/29/25 02/03/25 Rx aerosol inhaler (Ventolin HFA) Shortness Of Breath Or Wheezing #1 g alcohol swabs (Alcohol Pads) 1 pad topical .3 times a day #200 01/29/25 02/03/25 Rx ea amoxicillin 875 mg-potassium 1 tablet PO Q12H #2 tabs 01/29/25 02/03/25 Rx clavulanate 125 mg tablet blood sugar diagnostic (OneTouch #100 ea 01/29/25 02/03/25 Rx Verio test strips) blood-glucose meter (Blood Glucose #1 ea 01/29/25 02/03/25 Rx Monitoring kit) fluticasone fur. 200 mcg-umeclid 1 inh inhalation DAILYRT #1 ea 01/29/25 02/03/25 Rx 62.5 mcg-vilant 25 mcg inhalat.powder (Trelegy Ellipta) glucagon 3 mg/actuation nasal spray 3 mg intranasal ONCE #1 ea 01/29/25 02/03/25 Rx lancets 28 gauge (Comfort EZ #100 ea 01/29/25 02/03/25 Rx Lancets) pen needle, diabetic 32 gauge x #50 ea 01/29/25 02/03/25 Rx (Candelaria 2nd Gen Pen Needle) aspirin 81 mg chewable tablet 81 mg PO DAILY 02/03/25 02/03/25 History celecoxib 200 mg capsule 200 mg PO DAILY 02/03/25 02/03/25 History chlorthalidone 25 mg tablet 25 mg PO DAILY 02/03/25 02/03/25 History insulin NPH isoph U-100 human 100 20 unit subcut .AM 02/03/25 02/03/25 History unit/mL (3 mL) subcutaneous pen (Humulin N NPH U-100 Insulin KwikPen) losartan 50 mg tablet 50 mg PO BID 02/03/25 02/03/25 History metoprolol succinate 50 mg 50 mg PO DAILY 02/03/25 02/03/25 History tablet,extended release 24 hr Allergies Allergy/AdvReac Type Severity Reaction Status Date / Time No Known Allergies Allergy Verified 02/04/25 15:05 Exam Narrative: 74-year-old male alert pleasant. BMI is 21.9. His left shoulder he has active elevation 135, external rotation 50 internal rotation L1. Subscap liftoff is intact. He has moderate weakness with external rotation moderately severe weakness with abduction strength testing. Biceps muscle has normal contour. He has intact sensation left upper extremity. Normal muscle strength in all muscles in the left upper extremity. 2+ radial pulse palpable. Resp: Auscultation: clear to auscultation bilaterally Cardio: Rate: regular rate Rhythm: regular rhythm Assessment and Plan Assessment and plan (1) Complete rotator cuff tear of left shoulder: Qualifiers: Rotator cuff tear trauma status: traumatic Encounter type: subsequent encounter Qualified Code(s): S46.012D - Strain of muscle(s) and tendon(s) of the rotator cuff of left shoulder, subsequent encounter Code(s): M75.122 - Complete rotator cuff tear or rupture of left shoulder, not specified as traumatic Status: Acute Assessment and Plan: 74-year-old male who has had acute traumatic tear of the rotator cuff tendon left shoulder. He does not have significant atrophy or fatty infiltration which would suggest this is acute. Patient has significant weakness and pain on a daily basis. At this point patient would rather proceed with repair rather than continue nonsurgical treatment. Surgical procedures well as the risks and complications were discussed in detail all questions were answered and proceed. Patient did have a nasal swab which was negative. He has seen cardiology, he has a history of carotid stenosis. His latest ultrasound shows less than 50% stenosis both carotids he has been cleared from cardiology standpoint. Patient is last A1c was 7.7. He will see his primary care doctor pre-surgical clearance.
--- OUTSIDE RECORDS SUMMARY | 2025-02-12 02:25 | XMS_ITS | Clinical Summary ---
Author Organization [facility] Facility Address [address] [facility] [place] [address] [address] Care Team Providers Care Retread Supervisor Name Role Phone Naila Moreno MD Primary Care Provider [phone] Social History Tobacco Use Types Packs/Day Years [...] patient's age to complete this topic Insurance [facility] Medicare Care Teams Retread Supervisor Relationship Specialty Start Date End Date Naila Moreno MD [address], [address] [place] [address] PCP - General Internal Medicine 11/30/23
--- OUTSIDE RECORDS SUMMARY | 2025-02-12 02:25 | XMS_ITS ---
Author Organization [facility] Address [address] [place] [address] Care Team Providers Care Generator Repairer Name Role Phone SravanHemalathaOwen Unavailable [phone] Medications Medication SIG (Take, Route, Frequency, Duration) Notes Start Date End Date Status Losartan Potassium 50 MG 1 tablet Orally Once a day for 90 05/30/2023 Active Ergocalciferol 1.25 MG (68203 UT) 1 capsule Orally Once a week for 90 day(s) 08/29/2023 05/25/2024 Active Calcitriol 0.25 MCG 1 capsule Orally corrine ry other day for 90 05/30/2023 02/24/2024 Active Social History Sex Assigned At : Social History Observation Description Sex Assigned At Male Encounters Encounter Location Date Provider Diagnosis [place] [facility] [address] [facility] [address] [place] [address] 11/21/2023 Owen Hinson Chronic kidney disease, stage [...] * CRISS CALERODOB: [birth year] (74 yo M)Acc No.[id number]:11/21/2023 Progress Notes Patient: CRISS FORRESTER Provider: Yao GARCIA MD, Fabian, F.A.S.N. :1950 A ge:73 Y S ex:Male Date:11/21/2023 Address:[address] [place] [address] Subjective: * Chief Complaints: * * Medical History: * Medications: T aking Losartan Potassium 50 MG Tablet 1 tablet Orally Once a day , Taking Calcitriol 0.25 MCG Capsule 1 capsule Orally every other day , stop date 02/24/2024, Taking Ergocalciferol 1.25 MG (72354 UT) Capsule 1 capsule Orally Once a [...] Treatment: * Billing Information: * Visit Code: 33735 Office Visit, Est Pt., Level 4. * Procedure Codes: * Electronic signature of Marisela Hinson MD on 02/12/2025 at 02:25 AM CDT Sign off status: Pending * Provider: Yao GARCIA MD, Fabian, F.A.S.N. Date: 0 11/21/2023 Generated for Printing/Faxing/eTransmitting on: 0 02/12/2025 02:25 AM CDT
--- OUTSIDE RECORDS SUMMARY | 2025-02-12 02:25 | XMS_ITS | Clinical Summary ---
Author Organization [facility] Address [address] [place] [address] Phone Care Team Providers Care Internal Revenue Agent Name Role Phone Unavailable Primary Care Provider [...] Description 02/10/2025 3:00 PM CDT Office Visit [facility] Oncology and Hematology [facility] [address] [place] [id number] Maxwell Oleary MD Cancer, metastatic to bone [...] 02/25/2025 4:30 PM CDT Telephone Check Up [facility] On[facility] and Hematology [place] [address] [place] [address] Maxwell Oleary MD [address] [facility] [address] [place] [address] Health Maintenance Due Date Last Done Comments DIABETES ANNUAL FOOT EXAM 1970 DIABETES ANNUAL RETINAL EXAM 1970 DIABETES MICROALBUMIN ANNUAL SCREEN 1970 LDL CHOLESTEROL ANNUAL 1970 DTAP/TDAP/TD VACCINES (1 - Tdap) 1971 COLORECTAL SCREENING 1997 Colorectal Cancer Screening 1997 FIT-DNA Q 3 years 1997 FIT/FOBT Q 1 year 1997 Flex Sig/CT Colonography Q 5 years 1997 Lung Cancer Screening 2002 ZOSTER VACCINE (1 of 2) 2002 RSV VACCINE (60+ or ) (1 - Risk 60-74 years 1-dose series) 2012 Abdominal Aortic Aneurysm (A AA) Screening 2017 PNEUMOCOCCAL VACCINE 50+ YEA RS (3 of 3 - PCV20 or PCV21) 07/24/2023 07/24/2018, 02/21/2017, 08/04/2015, Additional history exists DIABETES HBA1C Q 6 MONTHS 09/02/2023 03/03/2023 INFLUENZA VACCINE (#1) 2024 9, 07/24/2018, 08/04/2015, Additional history exists COVID-19 Vaccine (3 - 2023-2 5 season) 2024 01/27/2021, 12/26/2020 Insurance [place] [id number]
--- OUTSIDE RECORDS SUMMARY | 2025-02-12 02:26 | XMS_ITS ---
Author Organization [facility] Address [address] [address] [place] [address] Care Team Providers Care Handbag Finisher Name Role Phone Duy Hinsonjit Unavailable [phone] Medications Medication SIG (Take, Route, Frequency, Duration) Notes Start Date End Date Status Losartan Potassium 50 MG 1 tablet Orally Once a day for 90 05/30/2023 Active Social History Sex Assigned At : Social History Observation Description Sex Assigned At Male Encounters Encounter Location Date Provider Diagnosis [place] [facility] [address] [facility] [address] [place] [address] 08/01/2024 Owen Hinson Chronic kidney disease, stage [...] * CRISS CALERODOB: [birth year] (74 yo M)Acc No.[id number]:08/01/2024 Progress Notes Patient: CRISS FORRESTER Provider: Yao GARCIA MD, F.A.C.P, F.A.S.N. :1950 A ge:74 Y S ex:Male Date:08/01/2024 Address:[address] [place] [address] Subjective: * Chief Complaints: * * Medical [...] Treatment: * Billing Information: * Visit Code: 26886 Office Visit, Est Pt., Level 4. * Procedure Codes: * Electronic signature of Marisela Hinson MD on 02/12/2025 at 02:26 AM CDT Sign off status: Pending * Provider: Yao GARCIA MD, F.A.C.P, F.A.S.N. Date: 10/01/2023 Generated for Printing/Faxing/eTransmitting on: 0 02/12/2025 02:26 AM CDT
--- OUTSIDE RECORDS SUMMARY | 2025-02-12 02:26 | XMS_ITS | CONTINUITY OF CARE DOCUMENT ---
Author Name cruz kitoctavio Address Unknown Organization [facility] Address [address] [address] [facility] [address] [place] [address] Phone [phone] Care Team Providers Care English Language Learner Teacher Name Role Phone Derrick Amos MD Unavailable [...] In-person encounter Office Visit Steven Shaw NP [facility] - In-person encounter Office Visit Derrick Amos MD [facility] - In-person encounter Office Visit Derrick Amos MD [facility] Cardiology examination - In-person encounter Office Visit Derrick Amos MD [facility] TOBACCO ABUSE-QUIT - In-person encounter Office Visit Derrick Amos MD [facility] - In-person encounter Office Visit Derrick Amos MD [facility] - In-person encounter Office Visit Derrick Amos MD [facility] - In-person encounter Office Visit Derrick Amos MD [facility] CVA - In-person encounter Office Visit Derrick Amos MD [facility] - In-person encounter Office Visit Marshal Milner MD [facility] Preop examHypertensionDyslipidemiaDiabetes mellitusCOPDShortness of breathTOBACCO ABUSE-QUITArrhythmia VITAL SIGNS Date Observation Value Provider Body Mass Index (Ratio) 22.31 kg/m2 Arnie Shaw NP blood pressure, diastolic 101 mm[Hg] emerald Lim blood pressure, systolic 179 mm[Hg] Danna laura Lim oxygen saturation, oximetry 95 % [facility] 71 /[facility] respiratory rate E&M 12 /min [facility] weight E&M 130 [lb_av] [facility] height E&M 64 [in_i] [facility] blood pressure, cuff size regular An [...] Amos MD blood pressure, cuff size regular [facility] blood pressure, diastolic 93 mm[Hg] Ja rr blood pressure, systolic 169 mm[Hg] Jar ret pulse rate 63 /min Lucas oxygen saturation, oximetry 96 % respiratory rate E&M 16 /min Lucas weight E&M 137 [lb_av] Lucas height E&M 64 [in_i] Lucas Body Mass Index (Ratio) 23.34 kg/m2 Ricky Albright blood pressure, cuff size regular [facility] blood pressure, diastolic 95 mm[Hg] Ja blood pressure, systolic 176 mm[Hg] [facility] pulse rate 58 /min Lucas [...] pressure, diastolic, right arm 80 m m[Hg] [place] blood pressure, systolic, right arm 130 m m[Hg] blood pressure, diastolic 80 mm[Hg] Ki blood pressure, systolic 130 mm[Hg] Yane cuevas Brody oxygen saturation, oximetry 97 % respiratory rate E&M 16 /min pulse rate 64 [facility] 143 [lb_av] height E&M 64 [in_i] blood pressure, resting Yes Kill n Brody ALLERGIES No Known Drug Allergies HISTORY OF MEDICATION USE Medication Status Instructions Dates Provider Indications [facility] mentviridiana chlorthalidone 25 mg tablet active [...] 1 tablet by mouth twice a day Derirck Amos MD #120, 60 days supply, Filled 11/18/2018 lisinopril 40 mg tablet completed Take 1 tablet by mouth once a day - Derrick Amso MD #90, 90 days supply, Filled 11/20/2018 [...] currently 1/2 Angel Quarles cigarette use yes [place] number of grandchildren Marshal Milner MD [...] Payer name Policy type / Coverage type [place] red green party ID AARP MEDICARE ADVANTAGE ([facility] [employer] PPO) Other [id number] ADVANCE DIRECTIVES Name Date DISCUSSED - NO DECISION MADE TREATMENT PLAN Date Name Performer [id number],C,Per pcp Derrick Amos MD [id number],C,S tent to carotid. he should be on astatin but I am not sure. Derrick Amos MD [id number],C,N ot sure what he is on but he will see his PCP for a list of current meds B P today: 155/90 P rior BP: 176/100 (04/12/2023) Derrick Amos MD [id number],C,l ow risk for colonoscopy. BP is not well controlled, will have him come back in a week for BP check Derrick Amos MD [id number],C,n ot well controlled W ill add olmesartan [...] andidate for hip surgery. Denies hx of [place] or chest pain. He reports many years [...]
--- OUTSIDE RECORDS SUMMARY | 2025-02-12 02:26 | XMS_ITS | Data Portability ---
Author Organization [facility] [employer], Main Office Address [address] [place] [address] Care Team Providers Care Stranding Machine Operator Helper Name Role Phone CATILIN MORENO Primary Care Provider [phone] CAITLIN MORENO Referring Provider [phone] CROW BALDERRAMA Adjuster Arbitrator DUNCAN SUAREZ Postmaster Relief MIGEL AMOS Weatherization Crew Leader JEROD FLETCHER General Surgeon [phone] BAILEY HERNANDEZ Orthopedic Surgeon Assessment Encounter Date Assessment Date Assessment LastModified by Organization Details LastModified Time 08/27/2024 08/27/2024 Assessment: Dysphonia Postnasal drip Nicotine smoke: 1 ppd 9599-2848 (quit 12 years in between) = 41 pack years Mild COPD RUL nodule Hypertension Plan: The following were reviewed and explained to the patient: Chest CT 09/21/22 7 mm RUL nodule Chest CT 03/07/24 no acute abnormality Chest CT 05/13/24 5 mm RUL nodule [facility] hospitalization 05/13/24 - 05/14/24 discharged on azithromycin, prednisone, Trelegy and albuterol inhalers [place] hospitalization 05/26/24 - 05/30/24 Lab data 06/04/24 [...] positive Maribel. Positive Neer and Brandon. Positive [place]'s. X-rays of the shoulder were reviewed, demonstrating [...] Positive Maribel. Positive Neer and Brandon. Positive [place]'s. Motor: 5/5 strength. Limited by pain Sensation: [...] one, free + total, serum 2024 025 [email or web address] [facility] - Outpatient Lab, [address] [place] [address], [address], 11/20/2024 12:46:04 lipid panel, serum 2024 025 [email or web address] Not available 11/20/2024 12:46:03 CMP, serum or plasma 2024 025 PAZ Not available 12/16/2024 20:02:46 CBC w/ auto diff 2024 025 PAZ Not available 12/16/2024 20:02:46 TSH + free T4, serum 2024 025 [email or web address] Not available 11/20/2024 12:46:04 vitamin D, 25-hydrox y, total, serum 2024 025 [email or web address] [facility] Out[facility], [address] [place], [address], 11/20/2024 12:46:04 microalbu min, urine 2024 025 [email or web address] Not available 11/20/2024 12:46:02 glycohemo globin, total, blood 2024 025 [email or web address] Not available 11/20/2024 12:46:02 vitamin B12 + folate, serum or blood 2024 025 [email or web address] [facility], [address] [place], [address], 11/20/2024 12:46:04 testoster one, free + total, serum 2024 025 [email or web address] [facility], [address] [place], [address], 10/07/2024 12:29:42 lipid panel, serum 2024 025 [email or web address] Not available 10/07/2024 12:29:40 CMP, serum or plasma 2024 025 [email or web address] Not available 10/07/2024 12:29:41 CBC w/ auto diff 2024 025 [email or web address] Not available 10/07/2024 12:29:41 TSH + free T4, serum 2024 025 [email or web address] Not available 10/07/2024 12:29:41 vitamin D, 25-hydrox y, total, serum 2024 025 [email or web address] [facility], [address] [place], [address], 10/07/2024 12:29:42 microalbu min, urine 2024 025 [email or web address] Not available 10/07/2024 12:29:39 glycohemo globin, total, blood 2024 025 [email or web address] Not available 10/07/2024 12:29:40 vitamin B12 + folate, serum or blood 2024 025 [email or web address] [facility] Out[facility] Lab, [address] [place], [address], 10/07/2024 12:29:42 gram stain, sputum [email or web address] [place] [address] - Outpatient Lab, [address] [place], [address], 09/04/2024 15:26:10 culture, sputum 2023 024 [facility] Outpatient Lab, [address] [place], [address], 08/28/2024 09:23:[address] referral - Please call patient to schedule an appointme nt. Thank you. 2024 025 NEO Hare MD, [address] [facility], [address], [place], [address], 11/27/2024 11:20:42 nephrolog ist referral - Please call patient to schedule an appointme nt. Thank you. 2024 025 NEO Hinson MD (Nephrology, [address], [address], [place], [address], 11/27/2024 16:30:50 vascular surgeon referral - Please call patient to schedule an appointme nt. Thank you. 2024 025 [place], [address], [address], [place], [address], 11/27/2024 10:45:31 orthopedi c surgeon referral - Please call patient to schedule an appointme nt. Thank you. 2024 025 NEO Wilkins, [address], [address], [place], [address], 11/27/2024 10:40:31 gastroent erologist referral - Please call patient to schedule an appointme nt. Thank you. 2024 025 [facility] Gastroenterol ogy, [address], [address], [place], [address], 12/01/2024 10:10:38 podiatris t referral - Please call patient to schedule an appointme nt. Thank you. 2024 025 PAZ Crow Joanna DPM, [address], [address], [place], [address], 12/04/2024 10:59:02 cardiolog ist referral - Please call patient to schedule an appointme nt. Thank you. 2024 025 [email or web address] [place], [address], [address], [place], [address], 12/25/2024 09:41:37 gastroent erologist referral - Please call patient to schedule an appointme nt. Thank you. 2024 025 [facility]astroenterol [facility]gy, [address], [address], [place], [address], 12/01/2024 10:10:37 physical therapist referral - Please schedule pt for L shoulder. Thanks 2024 025 [email or web address] [facility] Physical Therapy Diana, [address] [facility], [place], [address], 10/12/2024 20:27:32 nephrolog ist referral - Please call patient to schedule an appointme nt. Thank you. 2024 025 [email or web address] Owen Hinson MD (Nephrology, [address], [address], [place], [address], 12/25/2024 09:41:35 orthopedi c surgeon referral 2024 025 [email or web address] Bailey Hernandez MD, [address] [facility], [place], [address], 10/08/2024 17:47:12 orthopedi c surgeon referral - Please call patient to schedule. 2024 025 [email or web address] Bailey Hernandez MD, [address] [facility], [place], [address], 10/08/2024 17:47:11 gastroent erologist referral - Please call patient to schedule an appointme nt. Thank you. 2024 025 kendra Childers MD, [address] [facility], [address], [place], [address], 11/24/2024 17:58:06 cardiolog ist referral 2024 025 [email or web address] [place], [address] [facility], [address], [place], [address], 10/08/2024 17:46:51 gastroent erologist referral - Please call patient to schedule an appointme nt. Thank you. 2024 025 kendra Childers MD, [address] [facility], [address], [place], [address], 12/23/2024 08:40:[address] referral - Please call patient to schedule an appointme nt. Thank you. 2024 025 NEO Hare MD, [address] [facility], [address], [place], [address], 10/23/2024 12:20:31 podiatris t referral 2024 025 Crow Balderrama DPM, [address] [facility], [address], [place], [address], 10/08/2024 17:46:50 ENT surgery referral - Please call patient to schedule. 2023 024 [email or web address] 2 Barbara N Rik POWDER NIPPER, [address], [place], [address], 11/25/2024 08:19:42 Procedures injection /aspirati on joint/bur sa (PROC) 2024 025 [email or web address] In-Office Order, Internal Use Only DO Not Attach Compendium DO Not Attach Compendium, Do Not Delete/merge, [id number] 10/08/2024 14:40:14 Surgeries None recorded. Imaging MRI, shoulder, w/o contrast - Please contact pt to schedule apt. Thanks [address], [address], [place], [address], 12/05/2024 19:53:41 Medication Orders Celebrex 200 mg capsule [address] [facility], [address] [place] [address], [address], 12/05/2024 19:53:41 atorvasta tin 40 mg tablet 2024 [facility], [address] [place] [address], [address], 11/20/2024 12:44:48 metoprolo l succinate ER 50 mg tablet,ex tended release 24 hr 2024 [facility], [address] [place], [address], 11/20/2024 12:44:49 bupivacai ne HCl 0.5 % (5 mg/mL) injection solution [address] [facility], [address] [place] [address], [address], 10/12/2024 20:27:32 Kenalog 10 mg/mL suspensio n for injection [address] [facility], [address] [place] [address], [address], 10/12/2024 20:27:32 Mobic 15 mg tablet [address] [facility], [address] [place] [address], [address], 10/12/2024 20:27:32 meloxicam 7.5 mg tablet 2024 025 [facility], [address] [place] [address], [address], 10/07/2024 12:34:00 ipratropi um bromide 42 mcg (0.06 %) nasal spray 2023 024 [facility], [address] [place] [address], [address], 08/27/2024 09:26:59 albuterol sulfate HFA 90 mcg/actua tion aerosol inhaler 2023 024 [facility], [address] [place] [address], [address], 08/27/2024 09:26:55 Anoro Ellipta 62.5 mcg-25 mcg/actua tion powder for inhalatio n 2023 024 [facility], [address] [place] [address], [address], 08/27/2024 09:26:56 Patient TargetsNo targets recorded. Patient Instructions Encounter Date Encounter Id Patient Instructions Last Modified By Organization Details Last Modified Time 10/07/2024 [id number] diabetic eye exam* [email or web address] Not available 10/07/2024 12:29:43 11/20/2024 [id number] diabetic eye exam* Not available 11/20/2024 12:46:05 Reason for Referral ENT Surgery Referral for Dys phonia Please call patient to schedule. Referring Physician: Duncan Suarez, Pulmonary Disease, Encounter Date: 08/27/2024 Adjuster Arbitrator Referral for Type 2 diabetes mellitus without complication Referring Physician: Caitlin Moreno Internal Medicine, Encounter Date: 10/07/2024 Weatherization Crew Leader Referral for Co ronary arteriosclerosis Referring Physician: Caitlin Moreno Internal Medicine, Encounter Date: 10/07/2024 Neurologist Referral for Tra nsient cerebral ischemia Please call patient to schedule an appointment. Thank you. Referring Physician: Caitlin Moreno Internal Medicine, Encounter Date: 10/07/2024 Cement Mixer Driver Referral for Pr oteinuria Please call patient to schedule an appointment. Thank you. Referring Physician: Caitlin Moreno Internal Medicine, Encounter Date: 10/07/2024 Orthopedic Surgeon Referral for Pain of right knee joint Please call patient to schedule. Referring Physician: Caitlin Moreno Internal Medicine, Encounter Date: 10/07/2024 Chief Transfer And Pumphouse Operator Referral for Melendez's esophagus Please call patient to schedule an appointment. Thank you. Referring Physician: Caitlin Moreno Internal Medicine, Encounter Date: 10/07/2024 Chief Transfer And Pumphouse Operator Referral for Liver enzymes level above [...] Bailey Hernandez, Orthopedic Surgery, Encounter Date: 10/08/2024 Adjuster Arbitrator Referral for Type 2 diabetes mellitus without complication Please call patient to schedule an appointment. Thank you. Referring Physician: Caitlin Moreno Internal Medicine, Encounter Date: 11/20/2024 Weatherization Crew Leader Referral for Co ronary arteriosclerosis Please call patient to schedule an appointment. Thank you. Referring Physician: Caitlin Moreno Internal Medicine, Encounter Date: 11/20/2024 Neurologist Referral for Tra nsient cerebral ischemia Please call patient to schedule an appointment. Thank you. Referring Physician: Caitlin Moreno Internal Medicine, Encounter Date: 11/20/2024 Cement Mixer Driver Referral for Pr oteinuria Please call patient to schedule an appointment. Thank you. Referring Physician: Caitlin Moreno [facility] Medicine, Encounter Date: 11/20/2024 Chief Transfer And Pumphouse Operator Referral for Melendez's esophagus Please call patient to schedule an appointment. Thank you. Referring Physician: Caitlin Moreno [facility] Medicine, Encounter Date: 11/20/2024 Chief Transfer And Pumphouse Operator Referral for Liver enzymes level above reference range Please call patient to schedule an appointment. Thank you. Referring Physician: Caitlin Moreno [facility] Medicine, Encounter Date: 11/20/2024 Orthopedic Surgeon Referral for Pain of left shoulder joint Please call patient to schedule an appointment. Thank you. Referring Physician: Caitlin Moreno [facility] Medicine, Encounter Date: 11/20/2024 Vascular Surgeon Referral fo r Carotid artery stenosis Please call patient to schedule an appointment. Thank you. Referring Physician: Caitlin Moreno [facility] Medicine, Encounter Date: 11/20/2024 Results Created Date Observation Date Name Description Value Unit Range Abnormal Flag Note LastModifiedBy Organization Detail LastModifiedTime 08/27/20 24 08/30/2024 CULTU RE, SPUTU M/LOW ER RESPI RATOR Y culture, sputum/lower respiratory SEE NOTE abnormal CULTU RE, SPUTU M/LOW ER RESPI RATOR Y Micro Numbe r: [id number] Test Statu s: Final Speci men [...] or addit ional testi ng. Not Available [facility] [address] [place], [address], 08/30/2024 09:54:32 08/08/20 24 06/18/2024 compl ete PFT w/ [facility] hodil ator altagracia metry * No observ ation record ed. BARCODE Not Available 2023 11:25:37 10/01/19 25 10/01/2024 imagi ng/di agnos tic resul t No observ ation record ed. [address], [place], [address], 10/01/2024 21:41:55 12/22/19 25 12/21/2024 imagi ng/di agnos tic resul t No observ ation record ed. [address], [place], [address], 12/21/2024 13:10:41 01/03/20 25 01/02/2025 imagi ng/di agnos tic resul t No observ ation record ed. [facility] [address] [facility], [place], [address], 01/02/2025 13:25:36 01/14/20 25 01/12/2025 imagi ng/di agnos tic resul t No observ ation record ed. [address], [place], [address], 01/13/2025 11:35:03 01/27/20 25 01/25/2025 imagi ng/di agnos tic resul t No observ ation record ed. [address], [place], [address], 01/26/2025 07:22:46 01/28/20 25 01/27/2025 imagi ng/di agnos tic resul t No observ ation record ed. [address] [facility], [place], [address], 01/27/2025 17:11:51 02/05/20 25 02/04/2025 imagi ng/di agnos tic resul t No observ ation record ed. [address], [place], [address], 02/04/2025 18:37:32 02/05/20 25 02/04/2025 imagi ng/di agnos tic resul t No observ ation record ed. [address], [place], [address], 02/04/2025 18:44:57 02/05/20 25 02/04/2025 imagi ng/di agnos tic resul t No observ ation record ed. [address], [place], [address], 02/04/2025 18:46:10 02/07/20 25 02/04/2025 imagi ng/di agnos tic resul t No observ ation record ed. [id number] Ent Teresa Garg [address], [place], [address], 02/11/2025 11:42:05 Result Notes None recorded. Problems Name Problem SNOMED Code Status Onset Date Resolution Date Notes Provider Name and Address Organization Details Recorded Time Carotid artery stenosis 75998145 Active 2022 Not Available [facility] 4 22:24:36 Coronary arteriosc lerosis 06320944 Active 2022 Not Available [facility] 4 22:24:36 Vitamin D deficienc y 84649966 Active 2022 Not Available [facility] 4 22:24:36 Carotid artery stenosis 63021713 Active 2022 Not Available [facility] 4 22:24:36 Male hypogonad ism 34184742 Active 2022 Not Available [facility] 4 22:24:36 Diabetic periphera l neuropath y 508226005 Active 2022 Not Available [facility] 4 22:24:36 Bilateral foot congenita l pes cavus 34417936771 896668 Active 2022 Not Available [facility] 4 22:24:35 Melendez's esophagus 342450278 Active 2022 Not Available [facility] 4 22:24:36 Transient cerebral ischemia 092525168 Active 2023 Caitlin albright MD [address], [address], [place], [address] , [employer] 4 12:46:26 Serum vitamin B12 below reference range 537915112 Active 2023 Caitlin albright MD [address], [address], [place], [address] , [employer] 4 12:46:26 Chronic kidney disease 578495379 Active 2023 Caitlin albright MD [address], [address], [place], [address] , [employer] 4 10:23:58 Osteoarth ritis of right knee joint 86951169876 9100 Active 2023 ANGIE Martinez [address], [address], [place], [address] , [facility] [employer] [facility] 4 16:55:12 Penile candidias is 518407211 Active 2023 Caitlin albright MD [address], [place], [address] , [facility] 4 14:16:16 Chronic obstructi ve pulmonary disease 76303914 Active 2023 Caitlin albright MD [address], [place], [address] , [facility] - [facility] 4 14:16:16 Mild chronic obstructi ve pulmonary disease 674956559 Active 2023 Duncan Suarez MD [address], [place], [address] , [facility] [employer] [facility] 4 16:48:00 Posterior rhinorrhe a 61049615 Active 2023 Duncan Suarez MD [address], [place], [address] , [employer] [facility] 4 17:22:34 Dysphonia 54093571 Active 2023 Duncan Suarez MD [address], [place], [address] , [facility] - [facility] 4 09:26:26 Liver enzymes level above reference range 381481547 Active 2024 Caitlin albright MD [address], [place], [address] , [facility] - [facility] 5 12:14:26 Proteinur ia 22127688 Active 2024 Caitlin albright MD [address], [place], [address] , [place] [facility] 5 12:14:26 Chronic pain 68485800 Active 2024 Caitlin albright MD [address], [address], [place], [address] , [place] [facility] 5 12:14:26 Type 2 diabetes mellitus without complicat ion 093564238 Active 2024 Caitlin albright MD [address], [place], [address] , [place] [facility] 5 12:14:26 Pain of right knee joint 64972104179 4100 Active 2024 Caitlin albright MD [address], [address], [place], [address] , [place] [facility] 5 12:14:26 Abdominal pain 02605805 Active 2024 Caitlin albright MD [address], [address], [place], [address] , [place] [facility] 5 12:14:26 Pneumonia 315416363 Active 2024 Caitlin albright MD [address], [address], [place], [address] , [place] [facility] 5 12:14:26 Acute allergic reaction 121683648 Active 2024 Caitlin albright MD [address], [address], [place], [address] , [place] [facility] 5 12:14:26 Pain of bilateral hip joints 85406796847 699784 Active 2024 Caitlin albright MD [address], [address], [place], [address] , [place] [facility] 5 12:14:26 Pain of left shoulder joint 53572377496 669968 Active 2024 Caitlin albright MD [address] [facility], [address], [place], [address] , [place] [facility] 5 12:32:15 Computed tomograph y result abnormal 622822532 Active 2024 Mary Coley, RMJamaal null, [place] [facility] 5 15:06:05 Chronic back pain 215936692 Active 1990 on pain meds from Dr Villatoro Not Available [facility] 4 22:24:35 Impacted cerumen 08009705 Completed Not Available [facility] 3 04:53:49 Gastroeso phageal reflux disease 811594819 Active Not Available [facility] 4 22:24:36 Microalbu minuria 833587869 Active 2021 Not Available [facility] 4 22:24:36 Restless legs 53504109 Active 2017 Not Available [facility] 4 22:24:36 Sinusitis 42368834 Completed Not Available [facility] 3 04:53:50 Solitary nodule of lung 423612503 Active 2022 Not Available [facility] 4 22:24:36 Herpes zoster 4462040 Completed Not Available [facility] 3 04:53:50 Pain of hip region 27537580 Completed Not Available [facility] 3 04:53:50 Dysuria 45531104 Completed Not Available [facility] 3 04:53:50 Hyperlipi demia 16825706 Active Not Available [facility] 4 22:24:36 Essential hypertens ion 24757375 Active Not Available 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 Procedures Surgical History Date Name Laterality Status Provider Name and Address Organization Details Recorded Time 10/08/19 25 Ortho - Cortisone Injection completed Bailey Hernandez MD [address] [facility], [address], [place], [address], [employer] 10/08/2024 15:44:23 06/04/20 24 Transitional_Car e_Management completed Caitlin Moreno MD [address] [facility], [address], [place], [address], [employer] 06/04/2024 14:34:44 05/26/20 24 Transitional_Car e_Management completed Caitlin Moreno MD [address] [facility], [address], [place], [address], [employer] 05/26/2024 18:46:46 04/03/20 24 Medicare Wellness CPT Code, subsequent completed Sumeet Lai LPN [employer] 04/01/2024 12:41:54 05/02/20 23 Colonoscopy completed LEE Boyd [employer] 05/16/2023 14:33:53 02/01/20 19 Total hip arthroplasty completed Not Available [employer] 11/15/2022 04:43:55 Orthopedic Surgery completed Not Available [employer] 11/15/2022 04:43:55 Orthopedic Surgery completed Not Available [employer] 11/15/2022 04:43:55 Orthopedic Surgery completed Not Available [employer] 11/15/2022 04:43:55 insertion of carotid artery stent completed LEE Boyd [employer] 03/28/2023 14:33:51 Imaging Results None recorded. Procedure [...] mg by injectio n route. 2024 active [facility]: [id number] 4-20 Not Available Not Available Not [...] bromide 42 mcg (0.06 %) nasal spray [place] 1 spray 4 times a day by [...] Updated DateTime 5 162.56 cm 23.3 kg/m2 47762.5 6 g 97.7 [degF] 78 /min 140 mm[Hg] 80 mm[Hg] LEE Boyd [employer] 11:57:16 Date Recorded Body height Body mass index (BMI) Body weight Provider Name and Address Organization Details Last Updated DateTime 10/08/2024 162.56 cm 23.3 kg/m2 37104.56 g Porsche Hu [employer] 10/08/2024 14:27:08 Date Recorded Body height Body mass index (BMI) Body weight Body temperature Heart rate Oxygen saturation Oxygen saturation in Arterial blood by Pulse oximetry Systolic blood pressure Diastolic blood pressure Provider Name and Address Organization Details Last Updated DateTime 5 162.56 cm 22.8 kg/m2 03618.7 9 g 97.8 [degF] 81 /min 97 % 97 % 160 mm[Hg] 82 mm[Hg] Gayle Quintanilla MA [facility] [employer] [facility] 5 11:56:05 Date Recorded Body height Body mass index (BMI) Body weight Provider Name and Address Organization Details Last Updated DateTime 12/03/2024 162.56 cm 23.3 kg/m2 78134.56 g Porsche Hu [facility] [employer] 12/03/2024 14:53:40 Date Recorded Heart rate Respiratory rate Systolic blood pressure Diastolic blood pressure Provider Name and Address Organization Details Last Updated DateTime 08/27/2024 81 /min 17 /min 140 mm[Hg] 84 mm[Hg] Duncan jose MD [address] [facility], [address], [address] , [facility] [place] [employer] 08/27/2024 09:17:52 Date Recorded Body height Body mass index (BMI) Body weight Body temperature Heart rate Oxygen saturation Oxygen saturation in Arterial blood by Pulse oximetry Provider Name and Address Organization Details Last Updated DateTime 4 162.56 cm 25.3 kg/m2 17774.8 g 98.2 [degF] 81 /min 97 % 97 % Gayle Quintanilla MA [facility] [employer] [facility] [employer] 4 08:54:56 Social History Question Answer Notes LastModified by Organization Details LastModified Time Tobacco Smoking Status Former Smoker quit 02/2023 LEE Boyd, [facility] [employer] [facility] 03/28/2023 14:32:44 Do You Have An Advance Directive? Yes Patient Stated He Needs To Update Since . Recommended Working With An Pocket Setter Lockstitch. MIGRATION.890 [id number] Information not available 11/15/2022 Do You Wear A Helmet When Biking? No Does Not Bike [email or web address] Information not available 04/03/2024 Are You Blind Or Do You Have Difficulty Seeing? No MIGRATION.651 [id number] Information not available 11/15/2022 Is Blood Transfusion Acceptable In An Emergency? Yes Information not available 04/03/2024 What Is Your Level Of Caffeine Consumption? Moderate MIGRATION.136 [id number] Information not available 11/15/2022 How Much Tobacco Do You Chew? None MIGRATION.582 [id number] Information not available 11/15/2022 In The 14 Days Before Symptom Onset, Have You Had Close Contact With A Laboratory-conf irmed COVID-19 While That Case Was Ill? No MIGRATION.098 [id number] Information not available 11/15/2022 In The 14 Days Before Symptom Onset, Have You Had Close Contact With A Person Who Is Under Investigation For COVID-19 While That Person Was Ill? No MIGRATION.160 [id number] Information not available 11/15/2022 Are You Deaf Or Do You Have Serious Difficulty Hearing? No MIGRATION.308 [id number] Information not available 11/15/2022 What Type Of Diet Are You Following? REGULAR MIGRATION.094 [id number] Information not available 11/15/2022 Which Illicit Or Recreational Drugs Have You Used? None MIGRATION.713 9556261 Information not available 11/15/2022 What Is The Highest Grade Or Level Of School You Have Completed Or The Highest Degree You Have Received? [id number] Information not available 04/03/2024 Do You Have An Electrostatic Air Filter? No Information not available 08/27/2024 How Many Days Of Moderate To Strenuous Exercise, Like A Brisk Walk, Did You Do In The Last 7 Days? 2 [email or web address] Information not available 04/03/2024 On Those Days That You Engage In Moderate To Strenuous Exercise, How Many Minutes, On Average, Do You Exercise? 30 [email or web address] Information not available 04/03/2024 Have There Been Any Changes To Your Family Or Social Situation? No MIGRATION.823 [id number] Information not available 11/15/2022 What Is The Fluoride Status Of Your Home? Unknown MIGRATION.788 8558149 Information not available 11/15/2022 When Did You Quit Smoking? 1-5yearssincelastc igarette [email or web address] Information not available 04/05/2023 Are There Any Guns Present In Your Home? No MIGRATION.107 0969174 Information not available 11/15/2022 Do You Have A Humidifier? No Information not available 08/27/2024 Do You Use Insect Repellent Routinely? No MIGRATION.432 8111293 Information not available 11/15/2022 Where Do You Live? SingleLevelHouse MIGRATION.999 8457197 Information not available 11/15/2022 Presence Of Domestic Violence No Information not available 04/03/2024 Guns Present In The Home? No Information not available 04/03/2024 Are You Able To Care For Yourself? Yes [email or web address] Information not available 04/03/2024 Are You Blind Or Do Yo Have Difficulty Seeing? No Information not available 04/03/2024 Are You Deaf Or Do You Have Serious Difficulty Hearing? No [email or web address] Information not available 04/03/2024 General Stress Level? Low [email or web address] Information not available 04/03/2024 Live Alone Of With Others? With Others Dtr. And Her Family Lives Woth Patient [email or web address] Information not available 04/03/2024 Do You Have A Medical Power Of Pocket Setter Lockstitch? No [email or web address] Information not available 04/03/2024 Do You Have Moisture Problems In Your Home? No Information not available 08/27/2024 What Was The Date Of Your Most Recent Tobacco Screening? 11/20/2024 Information not available 11/20/2024 What Is Your Current Pack Years? 30ormorepackyears MIGRATION.301 [id number] Information not available 11/15/2022 Do You Have Any Pets? No 1 Dog 1 Cat [email or web address] Information not available 04/03/2024 What Is Your Relationship Status? MIGRATION.174 [id number] Information not available 11/15/2022 Do You Use Your Seat Belt Or Car Seat Routinely? Yes MIGRATION.359 0218236 Information not available 11/15/2022 Do You Have Smoke And Carbon Monoxide Detectors In Your Home? Yes MIGRATION.866 [id number] Information not available 11/15/2022 At What Age Did You Start Smoking Tobacco? 18 MIGRATION.424 1838407 Information not available 11/15/2022 Are You Passively Exposed To Smoke? No [email or web address] Information not available 04/03/2024 Are There Any Smokers In Your House? No [email or web address] Information not available 04/03/2024 How Much Tobacco Do You Smoke? No Was 1/2 Ppd Information not available 03/28/2023 What Types Of Sporting Activities Do You Participate In? None [email or web address] Information not available 04/03/2024 Do You Use Sunscreen Routinely? Yes MIGRATION.156 [id number] Information not available 11/15/2022 How Many Years Have You Smoked Tobacco? 53 MIGRATION.879 9534661 Information not available 11/15/2022 Have You Recently Traveled Abroad? No MIGRATION.721 [id number] Information not available 11/15/2022 Do You Have Difficulty Walking Or Climbing Stairs? No MIGRATION.465 6555674 Information not available 11/15/2022 Do You Have Any Dietary Restrictions? No MIGRATION.831 [id number] Information not available 11/15/2022 Sex: Male Functional Status Question Answer Note LastModified by [email or web address] ion Details LastModified Time Do you use any illicit or recreational drugs? No MIGRATION.995701 3382 Information not available 11/15/2022 Do you or have you ever used any other forms of tobacco or nicotine? No MIGRATION.574910 1752 Information not available 11/15/2022 What is your level of alcohol consumption? None MIGRATION.783921 2721 Information not available 11/15/2022 Are you currently employed? No Information not available 03/28/2023 Have you been exposed to chemicals or toxins? No No that aware of Information not available 08/27/2024 Do you have transportation difficulties? No MIGRATION.750618 6178 Information not available 11/15/2022 Are you able to walk? YESWOREST MIGRATION.397937 7096 Information not available 11/15/2022 Do you have difficulty doing errands alone? No MIGRATION.560200 6122 Information not available 11/15/2022 Are you able to care for yourself? Yes MIGRATION.270377 3847 Information not available 11/15/2022 What is your occupation? Retired MIGRATION.861612 5950 Information not available 11/15/2022 Do you have difficulty dressing or bathing? No MIGRATION.897910 5739 Information not available 11/15/2022 What is your exercise level? Occasional Active life stlye [email or web address] Information not available 04/03/2024 Mental Status Question Answer Note LastModified by Organizat ion Details LastModified Time Do you feel stressed (tense, restless, nervous, or anxious, or unable to sleep at night)? [id number] MIGRATION.[id number] 26 Information not available 11/15/2022 Do you have difficulty concentrating, remembering or making decisions? No MIGRATION.63146741 26 Information not available 11/15/2022 Family History Relationship Description Onset Age of this Age Resolved Age Notes LastModified by Organization Details LastModified Time Brother Essential hypertension MIGRATION.507 [id number] Not available 11/15/2022 04:44:01 Brother Malignant neoplastic disease Colon MIGRATION.294 [id number] Not available 11/15/2022 04:44:01 Father Essential hypertension MIGRATION.713 [id number] Not available 11/15/2022 04:44:01 Father Heart disease MIGRATION.666 4607791 Not available 11/15/2022 04:44:01 Mother Essential hypertension MIGRATION.338 8796233 Not available 11/15/2022 04:44:01 Mother Heart disease MIGRATION.409 6495106 Not available 11/15/2022 04:44:01 Sister Malignant neoplastic disease Breast MIGRATION.707 [id number] Not available 11/15/2022 04:44:02 Maternal Grandmother Family history of stroke [email or web address] Not available 2022 14:36:39 Mother Arthritis Not [...] dose 1 completed SANDRA Rosa, [place] [employer] [facility] 04/01/2024 14:20:36 COVID-19, mRNA, LNP-S, PF, 100 mcg/0.5mL dose or 50 mcg/0.25mL dose 1 completed SANDRA Rosa, [facility] [employer] [facility] 04/01/2024 14:20:36 pneumococcal polysaccharide PPV23 3 completed SANDRA [place], [place] [facility] 04/01/2024 14:20:36 Influenza, split virus, trivalent, PF 7 completed SANDRA Rosa, [facility] 04/01/2024 14:20:37 COVID-19, mRNA, LNP-S, PF, 30 mcg/0.3 mL dose 1 completed SANDRA Rosa, [facility] 04/01/2024 14:20:36 COVID-19, mRNA, LNP-S, PF, 30 mcg/0.3 mL dose 1 completed SANDRA Rosa, [facility] 04/01/2024 14:20:36 pneumococcal polysaccharide PPV23 7 completed SANDRA Rosa, [facility] 04/01/2024 14:20:36 Influenza, high-dose, trivalent, PF 9 completed Not Available Counts include 234 beds at the [facility] 10/02/2023 01:29:04 Influenza, high-dose, trivalent, PF 8 completed Not Available Counts include 234 beds at the [facility] 10/02/2023 01:29:04 Pneumococcal conjugate PCV 13 8 completed SANDRA Rosa, [facility] 04/01/2024 14:20:36 Influenza, high-dose, trivalent, PF 5 completed Not Available Counts include 234 beds at the [facility] 10/02/2023 01:29:04 pneumococcal polysaccharide PPV23 5 completed Not Available Counts include 234 beds at the [facility] 10/02/2023 01:29:04 Influenza, split virus, trivalent, PF 4 completed SANDRA Roas, [facility] 04/01/2024 14:20:37 Influenza, split virus, trivalent, PF 3 completed SANDRA Rosa, [facility] 04/01/2024 14:20:37 Past Encounters Encounter ID Performer Location Encounter Start Date Encounter Closed Date Diagnosis/Indication Diagnosis SNOMED-CT Code Diagnosis ICD10 Code Diagnosis Note [id number] Josemanuel Jones MD [facility] [address] [place] [address] 05/26/2021 00:00:00 06/07/2021 17:13:19 [id number] Josemanuel Jones MD [facility] [address] [place] [address] 05/26/2021 00:00:00 06/07/2021 17:22:34 [id number] Josemanuel Jones MD [facility] [address] [place] [address] 10/11/2021 00:00:00 10/11/2021 12:15:42 [id number] Josemanuel Jones MD [facility] [address] [facility] [place] [address] 11/10/2021 00:00:00 11/10/2021 14:15:46 [id number] Josemanuel Jones MD [facility] [address] [facility] [place] [address] 12/21/2021 00:00:00 12/21/2021 12:26:48 [id number] Josemanuel Jones MD [facility] [address] [place] [address]. [place] [address] 02/09/2022 00:00:00 02/09/2022 13:02:43 [id number] Josemanuel Jones MD [facility] [address] [facility] [place] [address] 06/13/2022 00:00:00 06/13/2022 17:11:20 [id number] Josemanuel Jones MD [facility] [address] [facility] [place] [address] 07/26/2022 00:00:00 07/26/2022 10:05:44 [id number] Josemanuel Jones MD [facility] [address] [facility] [place] [address] 10/16/2022 00:00:00 10/16/2022 17:28:29 [id number] Josemanuel Jones MD [facility] [address] [place] [address] 02/22/2023 14:00:48 02/22/2023 14:44:11 Diabetes mellitus 02779421 E11.9 , advised to get labs Hyperlipidemia 69299205 E78.5 Zetia, needs labs Essential hypertension 96169533 I10 add HCTZ Restless legs 15119213 G 25.81 meds help Gastroesop hageal reflux disease 922925588 K21.9 meds help Chronic pain syndrome 37 4173130 G89.4 otc helps Pain of bi lateral hip joints 2991777147 8028736 M25.551 OTC Smoker 59406319 F17.200 advised to quit Solitary n odule of lung 359204838 R91.1 advised to quit smoking Adult heal th examination 144749064 Z00.00 colonoscop y- due, was ordered few times, he will call GI to schedule it, will not reorderPSA -07/07, WAS [id number] 09/23/2017PP 23- 07/28/2013 , 02/2017, 08/04/2015 influenza vaccine- 08/13/19CO VID- 12/26/2020 , 01/27/2021 Chronic ob structive pulmonary disease 54749844 J44.9 better Weakness o f left upper limb 1122623744 05448 M62.81 improved, watch, symptoms were vague Screening for malignant neoplasm of prostate 832245706 Z12.5 Depression screening 171 191647 Z13.31 neg Body mass index 20-24 - normal 333521344 Z68.23 [id number] Caitlin albright MD [facility] [place] [address] [place] [address] 03/28/2023 13:57:30 03/28/2023 15:13:44 Screening - NAD 513891128 Z13.9 C-scope: Get this done or get the report if done Get yearly flu shotUTD on COVID X2, can do boostersUT D on PCVGet tdap if not doneGet Shingrix if not done RTC in 3 months, do labs, ER if worse, he did verbalize his understand ing of the above Hyperlipidemia 49670376 E78.5 On ASAOn atorvastat in 40mg dailyGet labs 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 081663128 E11.9 On metformin Get labs Gastroesop hageal reflux disease without esophagitis 786162620 K21.9 On omeprazole Get EGD done Chronic ob structive pulmonary disease 20378063 J44.9 On albuterolO n HHNsOn trelegy Carotid ar angel stenosis 01508013 I65.29 S/p stent in 03/09On ASAOn plavix Restless legs 50749703 G 25.81 On requipDoes well Ex-cigarette smoker 2810 63405 Z87.891 LDCT 09/21/2022 Get US AAA done Coronary arteriosclerosis 96958140 I25.10 CAD noted Get a referral to cardiology Dr Guevara Screening for malignant neoplasm of colon 351546509 Z12.11 Transient cerebral ischemia 490376761 G45.[address] Schumacher his neurologis t, get last OV note S/p hospitaliz ation, does very well now, no residual symptoms at this timeOn [place]SAOn [place]On [place] in [id number] Duncan Suarez MD [facility] [address] [address] 04/05/2023 11:23:02 04/06/2023 07:44:46 Dyspnea on exertion 53198552 R06.09 R05.9 T78.40XA D89.9 Solitary n odule of lung 517089507 R91.1 [id number] Caitlin albright MD [facility] [place] [address] 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 413126108 E11.9 On metforminO n FarxigaOn olmesartan Get labs Gastroesop hageal reflux disease without esophagitis 208333860 K21.9 On omeprazole Get EGD done Chronic ob structive pulmonary disease 28651519 J44.9 On albuterolO n HHNsOn trelegy Carotid ar angel stenosis 62968516 I65.29 S/p stent in 03/09On ASAOn plavix Restless legs 39852487 G 25.81 On requipDoes well Ex-cigarette smoker 2810 77989 Z87.891 LDCT 09/21/2022 Get US AAA done as AAA 04/04/2023 was non diagnostic d/t bowel gas Coronary arteriosclerosis 76441842 I25.10 [address] notedDr Bette 04/12/2023 , f/u in one month Screening for malignant neoplasm of colon 711609367 Z12.11 Transient cerebral ischemia 297155730 G45.9 CT Angio: 02/28/2023 : High grade stenosis, R ICA, s/p stent He does see Dr Schumacher his neurologis t, get last OV note S/p hospitaliz ation, does very well now, no residual symptoms at this timeOn ASAOn plavixOn atorvastat in Liver enzy mes level above reference range 525647694 R74.8 Get labs and US liver Proteinuria 63220161 R80 .9 Sees nephrology Pain of ri ght knee joint 4803359425 80998 M25.561 Get a referral to ortho Male hypogonadism 138664 06 E29.1 get labs Serum shane min B12 below reference range 424396146 R79.89 Vitamin D deficiency 347 74848 E55.9 [id number] Balbir Wilkins MD [facility] [address] [place] [address] 05/24/2023 13:58:48 05/24/2023 16:01:49 Pain of right knee joint 8408502010 85723 M25.556 [id number] Crow Balderrama DPM [facility] [address] [facility] [address] [place] [address] 07/10/2023 14:30:43 07/16/2023 09:50:24 Diabetic peripheral neuropathy 831183153 E11.40 Rx diabetic shoes and insertsPat ient educated on neuropathy , diabetes, diabetic diet, and daily foot exams. Patient is to check feet daily for new wounds, blisters, redness to prevent infection and ulceration s to the feet. Patient will return to clinic in 3 months for diabetic foot workup. Bilateral foot congenital pes cavus 3426217823 4581963 Q66.71 Q66.72 Recommend diabetic shoes and inserts History of cerebrovascular accident 584575024 Z86.73 continue with PCP recommenda tion [id number] Caitlin albrihgt MD [facility] Internal Med [facility] [address] [place] [address] 08/30/2023 13:57:45 08/30/2023 15:23:44 Screening - NAD 471450793 Z13.9 C-scope: 05/02/2023 , Dr Dickson next in one year Get yearly flu shotUTD on COVID X2, can do boostersUT D on PCVGet tdap if not doneGet Shingrix if not done RTC in 3 months, do labs, ER if worse, he did verbalize his understand ing of the above Hyperlipidemia 69008123 E78.5 On ASAOn atorvastat in 40mg dailyGet labs 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 776592547 E11.9 On metforminO n FarxigaOn olmesartan Get labs Chronic ob structive pulmonary disease 60402681 J44.9 On albuterolO n HHNsOn trelegy Carotid ar angel stenosis 03056125 I65.29 S/p stent in 03/09On ASAOn plavix Restless legs 32262645 G 25.81 On requipDoes well Ex-cigarette smoker 2810 31392 Z87.891 LDCT 09/21/2022 Get US AAA done as US AAA 04/04/2023 was non diagnostic d/t bowel gas Coronary arteriosclerosis 39286977 I25.10 CAD notedDr Bette 04/12/2023 , f/u in one month Transient cerebral ischemia 595724375 G45.9 CT Angio: 02/28/2023 : High grade stenosis, R ICA, s/p stent He does see Dr Schumacher his neurologis t, get last OV note S/p hospitaliz ation, does very well now, no residual symptoms at this timeOn ASAOn plavixOn atorvastat in Liver enzy mes level above reference range 661089761 R74.8 ALP 128 03/28/2023 Get labs and US liver Proteinuria 09071562 R80 .9 US kidney 05/25/2023 : Dr Hinson IJ Pain of ri ght knee joint 6988561096 88615 M25.561 MRI R knee: 06/07/2023 : Dr Wilkins Male hypogonadism 860511 06 E29.1 get labs Serum shane min B12 below reference range 409421945 R79.89 Vitamin D deficiency 347 46777 E55.9 Get labs Melendez's esophagus 3029 65283 K22.70 On omeprazole 05/02/2023 : EGD BarrettsNe eds a follow up with GI Impacted c erumen of bilateral ears 5855409004 250449 H61.23 Moderate cerumen extracted from his fuentes ears 08/30/2023 , he tolerated the procedure well Upper resp iratory infection 40750266 J06.9 Get flu/strep and COVID 19 testStart on Z-pack, ER if worse Chronic pain 04616917 G8 9.29 Get a referral to pain management [id number] Caitlin albright MD [facility] Internal Med [facility] [address] [facility], [facility] [address] [place] [address] 09/25/2023 15:56:57 09/25/2023 16:44:27 Abdominal pain 02642318 R10.9 Seen in the ER on 09/19/2023 [...] will see him this 09/27/2023 at 10.30am [id number] Jerod patricia MD [facility] General Surgery [address] [place] [address] 09/27/2023 11:17:35 09/27/2023 14:26:21 Foreign body 801732705 Z87.821 Foreign body cecum [id number] Caitlin albright MD [facility] Internal Med [place] [address] [place] [address] 11/29/2023 09:48:07 11/29/2023 10:38:28 Screening - NAD 757552111 Z13.9 C-scope: 05/02/2023 , Dr Dickson next in one year Get yearly flu shotUTD on COVID X2, can do boostersUT D on PCVGet tdap if not doneGet Shingrix if not doneGet RSV vaccine RTC in 3 months, do labs, ER if worse, he did verbalize his understand ing of the above Hyperlipidemia 97857669 E78.5 On ASANot on atorvastat in 40mg daily On rosuvastat in 40mg dailyGet labs 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 645789803 E11.9 On metforminO n FarxigaNot on olmesartan Get labs Chronic ob structive pulmonary disease 39925813 J44.9 On albuterolO n HHNsNot on trelegy Carotid ar angel stenosis 18105288 I65.29 S/p stent in ASAOn plavix Restless legs 73567128 G 25.81 Not on requipOn lyrica 75mg Dr Riojas well Ex-cigarette smoker 2810 99528 Z87.891 LDCT 09/21/2022 Get US AAA done as US AAA 04/04/2023 was non diagnostic d/t bowel gas US AAA 09/18/2023 : Neg Coronary arteriosclerosis 33521993 I25.10 CAD notedDr Bette 04/12/2023 , f/u in one month, referred 11/29/[address] daily Dr Sravan OTERO Transient cerebral ischemia 745001708 G45.9 CT Angio: 02/28/2023 : High grade stenosis, R ICA, s/p stent He does see Dr Schumacher his neurologis t, get last OV note S/p hospitaliz ation, does very well now, no residual symptoms at this timeOn ASANot on plavixNot on atorvastat in On rosuvatati n 40mg daily Liver enzy mes level above reference range 942493644 R74.8 ALP 128 03/28/2023 Get labs and US liver Addendum: 12/07/23US liver 12/03/2023 : Hepatic steatosis, triage notified Proteinuria 40054082 R80 .9 US kidney 05/25/2023 : Dr Sravan OTERO Pain of ri ght knee joint 6579830209 83451 M25.561 MRI R knee: 06/07/2023 : Dr Lemon erred to Dr Hernandez Male hypogonadism 282756 06 E29.1 get labs Serum shane min B12 below reference range 144243062 R79.89 Vitamin D deficiency 347 98051 E55.9 Get labs Melendez's esophagus 3029 24818 K22.70 On omeprazole 05/02/2023 : EGD BarrettsNe eds a follow up with GI Chronic pain 41842967 G8 9.29 Get a referral to pain management today 11/29/2023 , states that he does not want any pain meds at all Abdominal pain 90330265 R10.9 Seen in the ER on 09/19/2023 [...] : Case sent Acute magi rgic reaction 603916797 T78.40XA Seen in ERTreated with steroids, now is doing well Chronic ki dney disease 912956807 N18.9 On calcitriol On losartan Sees Dr Hinson IJ [id number] Caitlin albright MD [facility] [place] [address] [facility] , [place] [address] 12/10/2023 10:45:19 12/10/2023 11:26:10 Type 2 diabetes mellitus without complication 215579090 E11.9 On metformin ER 500mg daily, will increase to bidOn Farxiga 10mg daily but was not taking d/t costGet on Jardiance 10mg dailyIs adamant that he does not want to start on any insulin, states that he also was not very compliant with the metforminH e has be told to take his meds on scheduleNo t on olmesartan Get labs Penile candidiasis 86580 8000 B37.49 No more rash noted, he is using his nystatin-t rimacinolo ne cream and states that the rash is cleared up now Screening - NAD 00676107 3 Z13.9 C-scope: 05/02/2023 , Dr Dickson next in one year Get yearly flu shotUTD on COVID X2, can do boostersUT D on PCVGet tdap if not doneGet Shingrix if not doneGet RSV vaccine RTC in 3 months, do labs, ER if worse, he did verbalize his understand ing of the above Hyperlipidemia 99850950 E78.5 On ASAOn atorvastat in 40mg daily, states today 12/10/2023 that he has not been compliant with taking his medication , advised to become compliant and repeat the labs Not on rosuvastat in 40mg dailyGet labs Chronic ob structive pulmonary disease 56399699 J44.9 On albuterolO n HHNsNot on trelegy Carotid ar angel stenosis 51594390 I65.29 S/p stent in ASANot on plavixNeed s to see cardiology Restless legs 32535076 G 25.81 Not on requipOn lyrica 75mg Dr Riojas well Ex-cigarette smoker 5050 97493 Z87.891 LDCT 09/21/2022 Get US AAA done as US AAA 04/04/2023 was non diagnostic d/t bowel gas US AAA 09/18/2023 : Neg Coronary arteriosclerosis 98064067 I25.10 CAD notedDr Bette 04/12/2023 , f/u in one month, referred 11/29/[address] Sravan Hein to see Dr Amos Transient cerebral ischemia 724798906 G45.9 CT Angio: 02/28/2023 : High grade stenosis, R ICA, s/p stent He does see Dr Schumacher his neurologis t, get last OV note S/p hospitaliz ation, does very well now, no residual symptoms at this timeOn ASANot on plavixNot on atorvastat in On rosuvatati n 40mg daily Liver enzy mes level above reference range 319590641 R74.8 ALP 128 03/28/2023 Get labs and US liver Addendum: 12/07/23US liver 12/03/2023 : Hepatic steatosis, triage notified Proteinuria 32558736 R80 .9 US kidney 05/25/2023 : Dr Sravan OTERO Pain of ri ght knee joint 4721162250 49582 M25.561 MRI R knee: 06/07/2023 : Dr Lemon erred to Dr Hernandez Male hypogonadism 736072 06 E29.1 get labs Serum shane min B12 below reference range 732760134 R79.89 Vitamin D deficiency 347 12337 E55.9 Get labs Melendez's esophagus 3029 93996 K22.70 On omeprazole 05/02/2023 : EGD BarrettsNe eds a follow up with GI Chronic pain 36849440 G8 9.29 Get a referral to pain management today 11/29/2023 , states that he does not want any pain meds at all Abdominal pain 02261372 R10.9 Seen in the ER on 09/19/2023 [...] abd pain noted Acute magi rgic reaction 826466704 T78.40XA Seen in ERTreated with steroids, now is doing well Chronic ki dney disease 384491360 N18.9 On calcitriol On losartan Sees Dr Hinson IJ [id number] Bailey Hernandez MD [facility] [place] [address] [place] [address] 12/25/2023 14:36:22 12/25/2023 15:57:04 Pain of right knee joint 1778886917 54189 M25.561 Osteoarthr itis of right knee joint 5623250398 21774 M17.11 [id number] Bailey Hernandez MD [facility] [place] [address] [place] [address] 01/01/2024 14:25:42 01/01/2024 15:14:58 Pain of bilateral hip joints 3330073100 3015871 M25.551 M25.552 Trochanter ic bursitis of right hip 5695548615 69137 M70.61 History of total replacement of bilateral hip joints 1242488130 908204 Z96.002 [id number] Caitlin albright MD [facility] Internal Med [facility] [address] [facility] [place], [address] [place] [address] 04/03/2024 10:08:29 04/03/2024 10:56:36 Screening - NAD 261354627 Z13.9 C-scope: 05/02/2023 , Dr Randolph navarro [...] 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 591054457 E11.9 On metformin ER 500mg bidOn Farxiga 10mg daily but was not taking d/t Carson Jardiance 10mg daily Is adamant that he does not want to start on any insulin, states that he also was not very compliant with the metforminH e has be told to take his meds on scheduleNo t on olmesartan Get labs Penile candidiasis 47930 8000 B37.49 No more rash noted, he is using his nystatin-t rimacinolo ne cream and states that the rash is cleared up now Hyperlipidemia 18716951 E78.5 On ASAOn atorvastat in 40mg daily Not on rosuvastat in 40mg dailyGet labs Chronic ob structive pulmonary disease 99273272 J44.9 On albuterolO n HHNsNot on trelegyNee ds to keep apt with Dr Suarez Carotid ar angel stenosis 37189543 I65.29 S/p stent in 03/09On ASANot on plavixDr Bette [facility] 02/21/2024 , next in 6 months Restless legs 23410071 G 25.81 Not on requipOn lyrica 75mg Dr Riojas well Ex-cigarette smoker 2810 41645 Z87.891 LDCT 09/21/2022 Get US AAA done as US AAA 04/04/2023 was non diagnostic d/t bowel gas US AAA 09/18/2023 : Neg Coronary arteriosclerosis 40088993 I25.10 CAD noted On losartan 50mg daily Dr Sravan OTEROOn chlorthali done 25mg dailyDr Bette 02/20/2023 Transient cerebral ischemia 733077017 G45.9 CT Angio: 02/28/2023 : High grade stenosis, R ICA, s/p stent He does see Dr Schumacher his neurologis t, get last OV note S/p hospitaliz ation, does very well now, no residual symptoms at this timeOn ASANot on plavixNot on atorvastat in On rosuvatati n 40mg daily Liver enzy mes level above reference range 990981169 R74.8 ALP 128 03/28/2023 Get labs and US liver Addendum: 12/07/23US liver 12/03/2023 : Hepatic steatosis, triage notified Proteinuria 98311753 R80 .9 US kidney 05/25/2023 : Dr Sravan OTERO Pain of ri ght knee joint 3108639288 58744 M25.561 MRI R knee: 06/07/2023 : Dr Lemon erred to Dr Hernandez Male hypogonadism 533589 06 E29.1 get labs Serum shane min B12 below reference range 621381822 R79.89 Vitamin D deficiency 347 40044 E55.9 Get labs Melendez's esophagus 3029 70524 K22.70 On omeprazole 05/02/2023 : EGD Tonja eds a follow up with GI EGD 01/04/2024 : 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 Addendum: 04/03/2024 :See case, needs to get another EGD, he was notified Chronic pain 21839493 G8 9.29 Referred to pain management 11/29/2023 ,Advised not to take any NSAIDs d/t CAD and CKD issuesOK to refill his methocarba mol to take as needed in very limited quantities , if he needs more see pain management Abdominal pain 38957563 R10.9 Seen in the ER on 09/19/2023 [...] abd pain noted Acute magi rgic reaction 932381139 T78.40XA Seen in ERTreated with steroids, now is doing well Chronic ki dney disease 628859806 N18.9 On calcitriol On losartan Sees Dr Sravan OTERO Pain of bi lateral hip joints 0565770237 9129693 M25.551 M25.552 Marcus ADAMS 01/01/2024 Adult heal th examination 562650679 Z00.00 Screening for disorder 729153939 Z13.9 Spasm 97673355 R25.2 Screening for malignant neoplasm of prostate 460452607 Z12.5 [id number] Caitlin albright MD [facility] Internal Med [place] [address] [facility] [place] [address] 05/26/2024 16:14:38 05/26/2024 17:25:00 Screening - NAD 816761062 Z13.9 C-scope: 05/02/2023 , Dr Dickson next [...] 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 872210702 E11.9 On metformin ER 500mg bidOn Farxiga 10mg daily but was not taking d/t Carson Jardiance 10mg daily Is adamant that he does not want to start on any insulin, states that he also was not very compliant with the metforminH e has be told to take his meds on scheduleNo t on olmesartan Get labs Penile candidiasis 11579 8000 B37.49 No more rash noted, he is using his nystatin-t rimacinolo ne cream and states that the rash is cleared up now Hyperlipidemia 06303124 E78.5 On ASAOn atorvastat in 40mg daily Not on rosuvastat in 40mg dailyGet labs Chronic ob structive pulmonary disease 75866062 J44.9 On albuterolO n HHNsOn trelegy as per d/c from [facility] 05/14/2024 Needs to keep apt with Dr Suarez!Today 05/26/2024 : Severe SOB and YAN, at this, he was referred to ER, 911 ambulance called [facility] [place] [facility] Carotid ar angel stenosis 45847355 I65.29 S/p stent in ASANot on plavixDr Bette [facility] 02/21/2024 , next in 6 months Restless legs 43007553 G 25.81 Not on requipOn lyrica 75mg in am and [address] Riojas well Ex-cigarette smoker 2810 04149 Z87.891 LDCT 09/21/2022 Get US AAA done as US AAA 04/04/2023 was non diagnostic d/t bowel gas US AAA 09/18/2023 : Neg Coronary arteriosclerosis 98440116 I25.10 CAD noted On losartan 50mg daily Dr Sravan Hodges chlorthali done 25mg dailyDr Bette 02/20/2023 Transient cerebral ischemia 353496917 G45.9 CT Angio: 02/28/2023 : High grade stenosis, R ICA, s/p stent He does see Dr Schumacher his neurologis t, get last OV note S/p hospitaliz ation, does very well now, no residual symptoms at this timeOn ASANot on plavixNot on atorvastat in On rosuvastat in 40mg daily Liver enzy mes level above reference range 225583381 R74.8 ALP 128 03/28/2023 Get labs and US liver Addendum: 12/07/23US liver 12/03/2023 : Hepatic steatosis, triage notified Proteinuria 70904575 R80 .9 US kidney 05/25/2023 : Dr Hinson IJ Pain of ri ght knee joint 0020937047 35355 M25.561 MRI R knee: 06/07/2023 : Dr Lemon erred to Dr Hernandez Male hypogonadism 086047 06 E29.1 get labs Serum shane min B12 below reference range 885225606 R79.89 Vitamin D deficiency 347 53972 E55.9 Get labs Melendez's esophagus 3029 85189 K22.70 On omeprazole 05/02/2023 : EGD BarrettsNe eds a follow up with GI EGD 01/04/2024 : 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 Addendum: 04/03/2024 :See case, needs to get another EGD, he was notified Chronic pain 91292517 G8 9.29 Referred to pain management 11/29/2023 ,Advised not to take any NSAIDs d/t CAD and CKD issuesOK to refill his methocarba mol to take as needed in very limited quantities , if he needs more see pain management Abdominal pain 14045336 R10.9 Seen in the ER on 09/19/2023 [...] : Case sent Acute magi rgic reaction 767499449 T78.40XA Seen in ERTreated with steroids, now is doing well Chronic ki dney disease 336657049 N18.9 On calcitriol On chlorthali done 25mg dailyOn losartan 50mg daily Sees Dr Sravan OTERO Pain of bi lateral hip joints 6268743250 9449913 M25.551 M25.552 Marcus ADAMS 01/01/2024 Screening for malignant neoplasm of prostate 659709306 Z12.5 Transition of care 41466 71530 105 Z75.8 [id number] Caitlin albright MD [facility] [place] [address] 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 603560855 E11.9 On metformin ER 500mg bidOn Farxiga 10mg daily but was not taking d/t Carson Jardiance 10mg dailyOn lantus 10U at bedtime Not on olmesartan Get labs Penile candidiasis 94171 8000 B37.49 No more rash noted, he is using his nystatin-t rimacinolo ne cream and states that the rash is cleared up now Hyperlipidemia 03326028 E78.5 On ASAOn atorvastat in 40mg daily Not on rosuvastat in 40mg dailyGet labs Chronic ob structive pulmonary disease 28819008 J44.9 On albuterolO n HHNsOn trelegy Needs to keep apt with Dr Suarez!Today 05/26/2024 : Severe SOB and YAN, at this, he was referred to ER, 911 ambulance called and [facility] [place] [facility] OV 06/04/2024 :Dr Suarez 06/04/2024 , keep apts with pulmonary Carotid ar angel stenosis 28894629 I65.29 S/p stent in 03/09On ASANot on plavixDr Bette [facility] 02/21/2024 , next in 6 months Restless legs 36815171 G 25.81 Not on requipOn lyrica 75mg in am and [address] Riojas well Ex-cigarette smoker 2810 77357 Z87.891 LDCT 09/21/2022 Get US AAA done as US AAA 04/04/2023 was non diagnostic d/t bowel gas US AAA 09/18/2023 : Neg Coronary arteriosclerosis 52150243 I25.10 CAD noted On losartan 50mg daily Dr Sravan palma done 25mg dailyOn metoprolol ER 50mg dailyDr Bette 02/20/2023 Transient cerebral ischemia 212040432 G45.9 CT Angio: 02/28/2023 : High grade stenosis, R ICA, s/p stent He does see Dr Schumacher his neurologis t, get last OV note S/p hospitaliz ation, does very well now, no residual symptoms at this timeOn ASANot on plavixNot on atorvastat in On rosuvastat in 40mg daily Liver enzy mes level above reference range 445567634 R74.8 ALP 128 03/28/2023 Get labs and US liver Addendum: 12/07/23US liver 12/03/2023 : Hepatic steatosis, triage notified Proteinuria 60525184 R80 .9 US kidney 05/25/2023 : Dr Hinson IJ Pain of ri ght knee joint 0747186035 61215 M25.561 MRI R knee: 06/07/2023 : Dr Lemon erred to Dr Hernandez Male hypogonadism 447651 06 E29.1 Get labs Serum shane min B12 below reference range 271670143 R79.89 Vitamin D deficiency 347 42648 E55.9 Get labs Melendez's esophagus 3029 62183 K22.70 On omeprazole 05/02/2023 : EGD BarrettsNe eds a follow up with GI EGD 01/04/2024 : 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 Addendum: 04/03/2024 :See case, needs to get another EGD, he was notified Chronic pain 32847883 G8 9.29 Referred to pain management 11/29/2023 ,Advised not to take any NSAIDs d/t CAD and CKD issuesOK to refill his methocarba mol to take as needed in very limited quantities , if he needs more see pain management Abdominal pain 79317731 R10.9 Seen in the ER on 09/19/2023 [...] Does well now Acute magi rgic reaction 538199984 T78.40XA Seen in ERTreated with steroids, now is doing well Chronic ki dney disease 574340210 N18.9 On calcitriol On chlorthali done 25mg dailyOn losartan 50mg daily Sees Dr Hinson IJ Pain of bi lateral hip joints 4102774137 3399888 M25.551 M25.552 Marcus ADAMS 01/01/2024 Screening for malignant neoplasm of prostate 972063277 Z12.5 Transition of care 21909 71087 105 Z75.8 Pneumonia 845525470 J18. 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 252241567 E11.9 On metformin ER 500mg bidOn Farxiga [...] Not on olmesartan Get labs Penile candidiasis 70435 8000 B37.49 No more rash noted, he is using his nystatin-t rimacinolo ne cream and states that the rash is cleared up now Hyperlipidemia 13359203 E78.5 On ASAOn atorvastat in 40mg daily Not on rosuvastat in 40mg dailyGet labs Chronic ob structive pulmonary disease 19050733 J44.9 On albuterolO n HHNsOn trelegy Needs to keep apt with Dr Suarez!Today 05/26/2024 : Severe SOB and YAN, at this, he was referred to ER, 911 ambulance called and [facility] [place] [facility] OV 06/04/2024 :Dr Suarez 06/04/2024 , [...] f/u on 07/08/2024 Carotid ar angel stenosis 56747731 I65.29 S/p stent in ASANot on plavixDr Bette [facility] 02/21/2024 , next in 6 months Restless legs 29457326 G 25.81 Not on requipOn lyrica 75mg in am and [address] Riojas well Ex-cigarette smoker 2810 70867 Z87.891 LDCT 09/21/2022 Get US AAA done as US AAA 04/04/2023 was non diagnostic d/t bowel gas US AAA 09/18/2023 : Neg Coronary arteriosclerosis 84019963 I25.10 CAD noted On losartan 50mg daily Dr Sravan Hodges chloribrahima done 25mg dailyOn metoprolol ER 50mg dailyDr Bette 02/20/2023 Transient cerebral ischemia 397750342 G45.9 CT Angio: 02/28/2023 : High grade stenosis, R ICA, s/p stent He does see Dr Schumacher his neurologis t, get last OV note S/p hospitaliz ation, does very well now, no residual symptoms at this timeOn ASANot on plavixNot on atorvastat in On rosuvastat in 40mg daily Liver enzy mes level above reference range 971129911 R74.8 ALP 128 03/28/2023 Get labs and US liver Addendum: 12/07/23US liver 12/03/2023 : Hepatic steatosis, triage notified Proteinuria 12118438 R80 .9 US kidney 05/25/2023 : Dr Hinson IJ Pain of ri ght knee joint 1323642918 58626 M25.561 MRI R knee: 06/07/2023 : Dr Lemon erred to Dr Hernandez Male hypogonadism 837394 06 E29.1 Get labs Serum shane min B12 below reference range 237613790 R79.89 Vitamin D deficiency 347 22231 E55.9 Get labs Melendez's esophagus 3029 07501 K22.70 On omeprazole 05/02/2023 : EGD BarrettsNe eds a follow up with GI EGD 01/04/2024 : 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 Addendum: 04/03/2024 :See case, needs to get another EGD, he was notified Chronic pain 11606212 G8 9.29 Referred to pain management 11/29/2023 ,Advised not to take any NSAIDs d/t CAD and CKD issuesOK to refill his methocarba mol to take as needed in very limited quantities , if he needs more see pain management Abdominal pain 36726565 R10.9 Seen in the ER on 09/19/2023 and 09/24/2023 , still has some LLQ abdominal discomfort , s/p CT A/P 09/19 and 09/24, treated with antibiotic and IVF, upon getting IVF as per ER note he did feel better and he was d/cMetalli c object noted on CT on 09/24, will refer to Dr Fernando and he will see him this 09/27/2023 at 10.30bria Fernando 09/27/2023 : Referred to GI, f/u PRN Today 11/29/2023 he continues to have LLQ abd tenderness and some epigastric tenderness Get a repeat CT A/P without today 11/29/2023 Addendum: 12/07/2023 CT A/P 11/29/2023 : Case sent OV 06/04/2024 : Does well now Acute magi rgic reaction 382937269 T78.40XA Seen in ERTreated with steroids, now is doing well Chronic ki dney disease 569568187 N18.9 On calcitriol On chlorthali done 25mg dailyOn losartan 50mg daily Sees Dr Hinson IJ Pain of bi lateral hip joints 2994044005 2155190 M25.551 M25.552 Marcus ADAMS 01/01/2024 Pneumonia 600598455 J18. 9 S/p d/c from [facility] 05/30/2024 Started on Lantus 10U q hsCBC: 05/30/2024 CMP: 05/30/2024 : BUN 33, Gluc 286 [id number] Duncan Suarez MD [facility] [address] [address] 07/08/2024 16:41:56 07/09/2024 11:52:16 Solitary nodule of lung 736123746 R91.1 Mild chron ic obstructive pulmonary disease 845948445 J44.9 Posterior rhinorrhea 758 26943 R09.82 [id number] Bailey Hernandez MD [facility] [place] [address] [place] [address] 07/16/2024 10:31:14 07/16/2024 11:32:17 Pain of right knee joint 4220347874 80214 M25.939 [id number] Duncan Suarez MD [facility] [address] 08/27/2024 08:36:07 08/27/2024 16:32:18 Solitary nodule of lung 182542649 R91.1 Mild chron ic obstructive pulmonary disease 628353848 J44.9 Posterior rhinorrhea 758 78942 R09.82 Dysphonia 51940013 R49.9 [id number] Caitlin albright MD [facility] Internal [facility] [address] [facility] [place], [address] [place] [address] 10/07/2024 11:44:35 10/07/2024 12:32:19 Screening - NAD 427478350 Z13.9 C-scope: 05/02/2023 , Dr Dickson next [...] 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 555334028 E11.9 On metformin ER 500mg bidNot on [...] Not on olmesartan Get labs Penile candidiasis 22711 8000 B37.49 No more rash noted, he is using his nystatin-t rimacinolo ne cream and states that the rash is cleared up now Hyperlipidemia 75420576 E78.5 On ASAOn atorvastat in 40mg daily Not on rosuvastat in 40mg dailyGet labs Chronic ob structive pulmonary disease 85355689 J44.9 On albuterolO n HHNsOn gil Needs to keep apt with Dr Suarez!Today 05/26/2024 : Severe SOB and YAN, at this, he was referred to ER, 911 ambulance called and [facility] [place] [facility] OV 06/04/2024 :Dr Suarez 06/04/2024 , [...] to see ENT Carotid ar angel stenosis 13235219 I65.29 S/p stent in ASANot on plavixDr Bette [facility] 02/21/2024 , next in 6 months Restless legs 31189851 G 25.81 Not on requipNot on lyrica 75mg in am and [address] Riojas well Ex-cigarette smoker 2810 95733 Z87.891 LDCT 09/21/2022 Get US AAA done as US AAA 04/04/2023 was non diagnostic d/t bowel gas US AAA 09/18/2023 : Neg Coronary arteriosclerosis 85858867 I25.10 CAD noted On losartan 50mg daily Dr Sravan OTEROOn chlorthali done 25mg dailyOn metoprolol ER 50mg dailyDr Bette 02/20/2023 Referred 10/07/2024 Transient cerebral ischemia 981559628 G45.9 CT Angio: 02/28/2023 : High grade stenosis, R ICA, s/p stent He does see Dr Schumacher his neurologis t, get last OV note S/p hospitaliz ation, does very well now, no residual symptoms at this timeOn ASANot on plavixNot on atorvastat in On rosuvastat in 40mg daily Liver enzy mes level above reference range 655202746 R74.8 ALP 128 03/28/2023 Get labs and US liver Addendum: 12/07/23US liver 12/03/2023 : Hepatic steatosis, triage notified Proteinuria 02929107 R80 .9 US kidney 05/25/2023 : Dr Sravan OTERO Pain of ri ght knee joint 5114301367 99828 M25.561 MRI R knee: 06/07/2023 : Dr Lemon erred to Dr Hernandez Male hypogonadism 961065 06 E29.1 Get labs Serum shane min B12 below reference range 577129065 R79.89 Vitamin D deficiency 347 49559 E55.9 Get labs Melendez's esophagus 3029 70245 K22.70 On omeprazole 05/02/2023 : EGD AlsNe eds a follow up with GI EGD 01/04/2024 : 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 Addendum: 04/03/2024 :See case, needs to get another EGD, he was notified Chronic pain 24015790 G8 9.29 Referred to pain management 11/29/2023 ,Advised not to take any NSAIDs d/t CAD and CKD issuesOK to refill his methocarba mol to take as needed in very limited quantities , if he needs more see pain management Abdominal pain 36721540 R10.9 Seen in the ER on 09/19/2023 [...] Does well now Acute magi rgic reaction 128998908 T78.40XA Seen in ERTreated with steroids, now is doing well Chronic ki dney disease 077227528 N18.9 On calcitriol On chlorthali done 25mg dailyOn losartan 50mg daily Sees Dr Sravan OTERO Pain of bi lateral hip joints 5583549106 9969236 M25.551 M25.552 Marcus ADAMS 01/01/2024 Dysphonia 38578003 R49.9 Was referred to ENT on 08/27/[address] Suarez's note Pain of le ft shoulder joint 2482642340 1089237 M25.512 Slipped and fell on ice 10 days ago, unable to lift L shoulder, [facility] and refer to ortho [id number] Bailey Hernandez MD [facility] [place] 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 991280187 E11.9 On metformin ER 500mg bidNot on [...] Not on olmesartan Get labs Penile candidiasis 79243 8000 B37.49 On nystatin-t rimacinolo ne cream as needed Hyperlipidemia 69326880 E78.5 On ASAOn atorvastat in 40mg daily Not on rosuvastat in 40mg dailyGet labs Chronic ob structive pulmonary disease 37013941 J44.9 On albuterolO n HHNsOn [place] Needs to keep apt with Dr Suarez!Today 05/26/2024 : Severe SOB and YAN, at this, he was referred to ER, 911 ambulance called and [facility] [place] [facility] OV 06/04/2024 :Dr Suarez 06/04/2024 , [...] apt on 11/25/2024 Carotid ar angel stenosis 43835827 I65.29 S/p stent in 03/09On ASANot on plavixDr Bette SL 02/21/2024 , next in 6 monthsDr Bette SL 08/11/2024 , f/u in 6 weeks and was to get US renal artery Restless legs 45457404 G 25.81 Not on requipNot on lyrica 75mg in am and [address] Riojas well Ex-cigarette smoker 2810 25947 Z87.891 LDCT 09/21/2022 Get US AAA done as US AAA 04/04/2023 was non diagnostic d/t bowel gas US AAA 09/18/2023 : Neg Coronary arteriosclerosis 27737804 I25.10 CAD noted On losartan 50mg daily Dr Sravan OTERO, is not taking this as per his historyOn chlorthali done 25mg dailyOn metoprolol ER 50mg daily, refilled 11/20/2024 , was not takingDr Bette 02/20/2023 Referred 10/07/2024 , 11/20/2024 Keep BP Transient cerebral ischemia 260080320 G45.9 CT Angio: 02/28/2023 : High grade stenosis, R ICA, s/p stent He does see Dr Schumacher his neurologis t, get last OV note S/p hospitaliz ation, does very well now, no residual symptoms at this timeOn ASANot on plavixOn atorvastat in renewed 11/20/2024 Not on rosuvastat in 40mg daily Liver enzy mes level above reference range 349165929 R74.8 ALP 128 03/28/2023 Get labs and US liver Addendum: 12/07/23US liver 12/03/2023 : Hepatic steatosis, triage notified Proteinuria 72889779 R80 .9 US kidney 05/25/2023 : Dr Hinson IJ Pain of ri ght knee joint 2919479807 79056 M25.561 MRI R knee: 06/07/2023 : Dr Wilkins Male hypogonadism 862562 06 E29.1 Get labs Serum shane min B12 below reference range 926202208 R79.89 Vitamin D deficiency 347 02813 E55.9 Get labs Melendez's esophagus 3029 27218 K22.70 On omeprazole 05/02/2023 : EGD BarrettsNe eds a follow up with GI EGD 01/04/2024 : 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 Addendum: 04/03/2024 :See case, needs to get another EGD, he was notified Chronic pain 80674179 G8 9.29 Referred to pain management 11/29/2023 ,Advised not to take any NSAIDs d/t CAD and CKD issuesOK to refill his methocarba mol to take as needed in very limited quantities , if he needs more see pain management Abdominal pain [id number] R10.9 Seen in the ER on 09/19/2023 [...] Does well now Acute magi rgic reaction [id number] T78.40XA Seen in ERTreated with steroids, now is doing well Chronic ki dney disease 458081680 N18.9 On calcitriol On chlorthali done 25mg dailyOn losartan 50mg daily Sees Dr Sravan OTERO Pain of bi lateral hip joints [id number] M25.551 M25.552 Marcus Walker PA 01/01/2024 Dysphonia [id number] R49.9 Was referred to ENT on 08/27/[address] Suarez's note Pain of le ft shoulder joint [id number] M25.512 Slipped and fell on ice 10 days ago, unable to lift L shoulder, [facility] [...] remain a moderate risk for this procedure [id number] Bailey Hernandez MD [facility] [place] [address] [place] [address] 12/03/2024 14:47:58 12/03/2024 16:19:34 Pain of left shoulder joint [id number] 3468143 M25.512 Health Concerns Section Related Observation LastModified by Organization Detai ls LastModified Time None Recorded Concern Status LastModified by Organization Details LastModified Time None Recorded Advance Directives Directive Y: Patient stated he needs t o update since . Recommended working with an district attorney. Payers Encounter Date Sequence Insurance Name Policy Number Policy Santana Covered Member ID Santana Member ID Guarantor Name 08/27/2024 1 [facility] - MEDICARE COMPLETE - CHOICE PLAN 2 (MEDICARE REPLACEMENT REGIONAL PPO) [id number] Navid Currykey [id number] Navid Esteban Rodríguez 10/07/2024 1 [facility] - MEDICARE COMPLETE - CHOICE PLAN 2 (MEDICARE REPLACEMENT REGIONAL PPO) [id number] Navid Sanchezenskey [id number] Navid Esteban Sanchezenskey 10/08/2024 1 [facility] - MEDICARE COMPLETE - CHOICE PLAN 2 (MEDICARE REPLACEMENT REGIONAL PPO) [id number] Navid Sanchezenskey [id number] Navid Sanchezenskey 11/20/2024 1 [facility] - [employer] - MEDICARE COMPLETE - CHOICE PLAN 2 (MEDICARE REPLACEMENT REGIONAL PPO) [id number] Navid Sanchezenskey [id number] Navid Sanchezensmarla 12/03/2024 1 [facility] - MEDICARE COMPLETE - CHOICE PLAN 2 (MEDICARE REPLACEMENT REGIONAL PPO) [id number] Navid Sanchezenskey [id number] Navid Currymarla Notes Date Note Type Note Provider Name and Address Organization Details Recorded Time 08/27/2024 text/html Primary care/Referring provider: Caitlin Moreno MD CC: I have hoarseness of voice and I could not sing in the group home. Patient is here to go over his mild COPD management. Initial development of shortness of breath: 2011Duration of shortness of breath: 13 yearsCondition of shortness of breath: stableTiming of shortness of breath: morningFrequency: up to 3 times a dayLimits activities: yesAggravating factors: walking, doing yard workAlleviating factors: rest Modified Medical Research [place] (mMRC) Dyspnea Scale - Grade 1Grade 0 [...] uoneb since 2016 Spiriva Handihaler once daily [phone] Symbicort HFA 160/4.5 mcg 2 puffs BID [...] yesEdema: no Environmental exposures:Nicotine smoke: 1 ppd [phone] (quit 12 years in between) = 41 [...] chance of dozing. Duncan Suarez MD [address] [facility], [place], [address], [facility] [employer] 08/27/2024 09:34:58 10/07/2024 text/html OV 03/28/2023: H ere to establish carePast Hx:HLDCOPDDMIITIARevi ewed social family and surgical historyHere to discuss above, admitted to [facility] on 02/28/2023 for TIA with L arm [...] for UTI, seen in the ER at [facility] 09/24/2023, treated with antibiotic and also did [...] OV 05/26/2024: Here post hosp, d/c from [facility] 05/14/2024 for SOB, today very SOB and has ongoing cough, he is extremely fatigued, c/o wheezing also, states that he is worse since his d/c from [facility] on 05/14/2024 OV 06/04/2024: Here for his [...] did see Dr Daniela Moreno MD [address] [facility], [place], [address], [facility] [employer] 10/10/2024 11:49:03 11/20/2024 text/html OV 03/28/2023: H ere to establish carePast Hx:HLDCOPDDMIITIARevi ewed social family and surgical historyHere to discuss above, admitted to [facility] on 02/28/2023 for TIA with L arm [...] for UTI, seen in the ER at [facility] 09/24/2023, treated with antibiotic and also did [...] OV 05/26/2024: Here post hosp, d/c from [facility] 05/14/2024 for SOB, today very SOB and has ongoing cough, he is extremely fatigued, c/o wheezing also, states that he is worse since his d/c from [facility] on 05/14/2024 OV 06/04/2024: Here for his [...] Dr Hernandez but still has shoulder pain Murtuza Bahrainwala, MD [address] [facility] [facility] [address], [place], [address], [facility] 01/06/2025 14:51:30
--- OUTSIDE RECORDS SUMMARY | 2025-02-12 02:27 | XMS_ITS | Patient Health Record ---
Author Organization [facility] Address [address] [place] [address] Care Team Providers Care Jewelry Designer Name Role Phone Sravan Owen Unavailable [phone] Reason For Referral No Information Medications Medication [...] Hyperglycemia due to type 2 diabetes mellitus (823475173986759) Type 2 diabetes mellitus with hyperglycemia (E11.65) Active confirmed Problem Acute exacerbation of chronic obstructive airways disease (916952049) Chronic obstructive pulmonary disease with (acute) exacerbation (J44.1) Active confirmed Problem Chronic kidney disease stage 2 (075133710) Chronic kidney disease, stage 2 (mild) (N18.2) Active confirmed Problem Proteinuria (43931279) Other proteinuria (R80.8) Active confirmed Problem Essential hypertension (83059079) Essential hypertension (I10) Active confirmed Encounters Encounter Location Date Provider Diagnosis [facility] [address] [address] 08/01/2024 Owen Hinson Chronic kidney disease, stage 2 (mild) N18.2 ; Other proteinuria R80.8 ; Type 2 diabetes mellitus with hyperglycemia E11.65 ; Chronic obstructive pulmonary disease with (acute) exacerbation J44.1 and Essential hypertension I10 [facility] [address] [address] 08/01/2024 Owen Hinson Assessments Encounter Date Diagnosis [...]
--- OUTSIDE RECORDS SUMMARY | 2025-02-12 02:27 | XMS_ITS | Clinical Summary ---
Author Organization [facility] Address [address] [place] [address] Care Team Providers Care Farm Equipment Engine Mechanic Name Role Phone Unavailable Primary Care Provider Unavailabl e Source Comments [facility],non-owned Affiliates and Associated Physician Practices is amultiple site organization consisting of ambulatory clinics and hospital sitesin [place], [place], [place] and [place]. This disclosure is being madepursuant to the Care Everywhere program and may not contain all information available regarding this patient. Last updated 18.[facility] Allergies No known active allergies Medications * [...] Date Recorded PHQ2 TOTAL SCORE 0 03/07/2023 [facility] of Occupat ional Health - Occupational Stress [...] place to sleep or slept in a retirement (including now)? No 03/03/2023 Sex and Gender [...] this topic Medical Devices Implanted Type Area Ornamental Ironworking Supervisor Device Identifier Shelf Expiration Date Model / Serial / Lot Stent Enroute Uber Flx 7mm .065in 40mm Implanted:Qty : 1 on 03/05/2023 by Betty Crane DO at [facility] Stent - Vascular Right: [facility]ial [facility] 04/16/2025 SR-0740-[id number] / / [id number] Description:IMPLANTED RIGHT CAROTID ARTERY Insurance [facility] MANAGED MEDICARE ADV Advance Directives * Full Code (Latest Code Status on File) Date Activated Date Inactivated Comments 03/03/2023 5:15 AM 03/08/2023 8:02 PM
--- OUTSIDE RECORDS SUMMARY | 2025-02-12 02:27 | XMS_ITS ---
Author Organization [facility] Address [address] [facility] [address] [facility] [address] [place] [address] Care Team Providers Care Brick Carrier Name Role Phone SravanHemalathaOwen Unavailable [phone] Medications Medication SIG (Take, Route, Frequency, Duration) Notes Start Date End Date Status Calcitriol 0.25 MCG 1 capsule Orally corrine ry other day for 90 05/30/2023 02/24/2024 Active Losartan Potassium 50 MG 1 tablet Orally Once a day for 90 05/30/2023 Active Ergocalciferol 1.25 MG (38583 UT) 1 capsule Orally Once a week for 90 day(s) 08/29/2023 05/25/2024 Active Social History Sex Assigned At : Social History Observation Description Sex Assigned At Male Encounters Encounter Location Date Provider Diagnosis [place] [facility] [address] [facility] [address] [place] [address] 01/23/2024 Owen Hinson Chronic kidney disease, stage [...] * CRISS CALERODOB: [birth year] (74 yo M)Acc No.[id number]:01/23/2024 Progress Notes Patient: CRISS FORRESTER Provider: Yao GARCIA MD, Fabian, F.A.S.N. :1950 A ge:73 Y S ex:Male Date:01/23/2024 Address:[address] [place] [address] Subjective: * Chief Complaints: * * Medical History: * Medications: T aking Losartan Potassium 50 MG Tablet 1 tablet Orally Once a day , Taking Calcitriol 0.25 MCG Capsule 1 capsule Orally every other day , stop date 02/24/2024, Taking Ergocalciferol 1.25 MG (02381 UT) Capsule 1 capsule Orally Once a [...] Treatment: * Billing Information: * Visit Code: 91669 Office Visit, Est Pt., Level 4. * Procedure Codes: * Electronic signature of Marisela Hinson MD on 02/12/2025 at 02:26 AM CDT Sign off status: Pending * Provider: Yao GARCIA MD, Fabian, F.A.S.N. Date: 0 01/23/2024 Generated for Printing/Faxing/eTransmitting on: 0 02/12/2025 02:26 AM CDT
[2025-02-12 10:00] VITALS: BP 148/86; PULSE 73; RESP 16; TEMP 36.2; O2SAT 99; BMI 21.4
[2025-02-12 10:17] LABS: Glucose Point of Care 221 mg/dl (65-105)
[2025-02-12] MEDS: LACTATED RINGERS 1,000 ML 30 ML IV CONT (10:20)
[2025-02-12] MEDS: VANCOMYCIN 750 MG/NS 250 ML BAG 250 MG IVPB (10:49)
[2025-02-12] MEDS: ACETAMINOPHEN 500 MG TABLET 1000 MG PO (10:50)
[2025-02-12] MEDS: INSULIN HUMAN REGULAR (*BKC) 100 UNITS/ML SUB-Q (10:50)
[2025-02-12] MEDS: KETOROLAC 15 MG/ML VIAL (*BKC) IV PUSH (10:54)
--- NOTE | 2025-02-12 11:26 | WPDHPUPDATE1 ---
History and Physical Update Update Date/Time: 02/12/25 11:26 History and Physical has been reviewed, including an updated exam of the patient. There are NO changes in the patient's condition. Risks, benefits, and alternatives have been discussed and questions answered. Patient agrees to proceed with procedure.Glucose is 220. Higher risk of infection. Will extended oral antibiotics post op.
--- NOTE | 2025-02-12 12:26 | P.HPUP_ITS ---
History and Physical Update Update Date/Time: 02/12/25 12:26 After further discussion with Anesthesia, in light of his recent admission to the hospital for COPD exacerbation 2 weeks ago, and the fact that his lungs do not sound like they have recovered fully on examination today, it was felt that the risk of general anesthesia with endotracheal intubation would be too high to justify proceeding at this time with elective procedure. Therefore his rotator cuff repair of his large acute tear resulting from a fall in September has to be postponed until his COPD has improved. I would also recommend that he work on improving his blood glucose control. I did have a long discussion with patient and his and his son. I reviewed with him the risks of surgery and to reduce his risk somewhat I would like him to call his breast surgeon today for further evaluation to see if there is any medication that can be given to him that will improve his COPD. Also I would like him to call Dr. Moreno to discuss other treatment options that can improve his glucose control. It is not clear to me whether he is noncompliant and that is why his blood glucose was so high at 221 today or whether his diabetes is not optimized from a medication standpoint or combination of both. They will call my office for rescheduling as soon as he is felt to be improved full from a pulmonary standpoint and a diabetes standpoint. I also had a discussion with him about the option of living with this. I explained this to his and son were present so that he can understand that many people that were 70 to live with a rotator cuff tear. The best functional outcome with a large acute tear of the rotator cuff is with time the repair however certainly there are patients in whom the risks of surgery hard greater and outweigh the benefit of having optimal functional outcome with respect to ac tive range of motion and strength in the left shoulder. I reviewed with him that it is going to be crucial that he is absolutely compliant with the restrictions of complete abstinence from any use of the left hand for the 1st 8 weeks after surgery or the stitches with full through the tendon trending the tendon the process. He has had a fall a week ago for no apparent reason and if he fell after undergoing rotator cuff repair, there would be a high likelihood that he would re-tear the repair with the fall so his risk of surgical failure is greater in addition to his increased risk of medical complications and surgical complications such as infection with rotator cuff repair and this was discussed at length with patient and with his and son. I am not sure that the patient fully grasps the seriousness of the situation based on my discussion with him today but through explaining things to him in a repeated fashion and multiple different ways he seemed to be understanding gradually and I think his understands completely and will she will continue talking to about this.
== END 2025-02-12 12:18 | disposition home or self-care (01) ==
PROVIDERS: PCP Internal Medicine; Visit Provider Orthopaedic Surgery
PROC: (CPT 29805; principal; 2025-02-12 12:00)
DX: M75.122 Complete rotator cuff tear or rupture of left shoulder, not specified as traumatic (principal); I10 Essential (primary) hypertension; E78.5 Hyperlipidemia, unspecified; E11.9 Type 2 diabetes mellitus without complications; J44.9 Chronic obstructive pulmonary disease, unspecified; Z79.84 Long term (current) use of oral hypoglycemic drugs; Z79.891 Long term (current) use of opiate analgesic; Z79.51 Long term (current) use of inhaled steroids; Z79.82 Long term (current) use of aspirin; Z79.1 Long term (current) use of non-steroidal anti-inflammatories (NSAID); Z98.890 Other specified postprocedural states; Z98.1 Arthrodesis status; Z87.891 Personal history of nicotine dependence; Z80.0 Family history of malignant neoplasm of digestive organs; Z82.49 Family history of ischemic heart disease and other diseases of the circulatory system
CPT/HCPCS: 82948; 99214; A9270; G0463; J1815; J1885; J3370; J7120

== ENCOUNTER 2025-03-16 10:09 | Outpatient (CLI) | payer MEDICARE, SELFPAY ==
--- NOTE | ~2025-03-16 | NM_ITS ---
EXAMINATION: NM bone scan whole body DATE: 03/17/2025 08:43 INDICATION: Cancer metastatic to bone TECHNIQUE: 25 mCi Tc-99m HDP was administered intravenously. Delayed whole-body scintigrams were obt ained. COMPARISON: CT dated 03/16/2025 and bilateral hip radiographs dated 01/01/2024 FINDINGS: Likely degenerative joint centered uptake at the bilateral acromioclavicular joints, knees and at mul tiple joints in the hands and feet. Photopenic defects associated with bilateral total hip arthroplas ties. There are foci of increased uptake along the femoral component of the arthroplasties. There ezra ears be associated with clinical information of the tip of the right femoral component and some chron ic cortical remodeling along the medial side of the distal left femoral component. No concerning lyti c/blastic lesions or findings suspicious for loosening or infection on the prior radiograph. There is increased uptake in the region of the greater tuberosity proximal left humerus, likely related to ca lcific tendinitis with subtle calcific density seen at the distal supraspinatus and infraspinatus ten dons on prior CT. No other suspicious foci of abnormal bone uptake to suggest metastatic disease. Spe cifically no uptake identified in the region of the small sclerotic lesions at the lower thoracic spi ne with a larger sclerotic lesion at S4. IMPRESSION: 1. No lesion suspicious for metastatic disease. 2. Typical pattern of scattered likely degenerative joint centered uptake as well as more atypical up take at the left shoulder corresponding to rotator cuff calcific tendinitis. 3. Bilateral total hip arthroplasties. Reviewed, dictated and finalized at location B. IMPRESSION: 1. No lesion suspicious for metastatic disease. 2. Typical pattern of scattered likely degenerative joint centered uptake as we ll as more atypical uptake at the left shoulder corresponding to rotator cuff c alcific tendinitis. 3. Bilateral total hip arthroplasties.
--- NOTE | ~2025-03-16 | CT_ITS ---
EXAMINATION: CT chest abdomen pelvis w con DATE: 03/16/2025 10:49 INDICATION: Cancer, metastatic to bone TECHNIQUE: Computed tomography (CT) of the chest, abdomen, and pelvis was performed with 100 mL Omnip aque-350 intravenous contrast. Automated exposure control and iterative reconstruction technique were employed. The dose-length product was 443.12 mGy-cm. COMPARISON: Chest CT dated 09/21/2022 FINDINGS: CHEST CT: Moderate emphysema. Likely benign 6 mm noncalcified right upper lobe nodule, unchanged since 09/21/2022 . 2 mm calcified left upper lobe nodule consistent with old granulomatous disease. No pneumonia, pulm onary edema or pleural effusion. Heart size is normal. Atherosclerotic coronary artery calcific lesio n. No pericardial effusion. Thoracic aorta normal in caliber with no dissection. No pathologically en larged thoracic lymphadenopathy. Mild to moderate thoracic spondylosis. Partially visualized anterior plate and screw fixation for lower cervical spinal fusion at C5-C6. A few small sclerotic bone lesio ns at T12 and the posterior right 12th rib which are unchanged since 09/21/2022 ABDOMEN/PELVIS CT: Diffuse hepatic steatosis. Decompressed gallbladder is unremarkable. Spleen, pancreas, bilateral adre nal glands and kidneys are normal. Bowels including the appendix are normal. Portions of the bladder and prostate are obscured by dense metallic streak artifact from bilateral total hip arthroplasties. No free intraperitoneal gas or fluid. No pathologically enlarged abdominal or pelvic lymphadenopathy. Chronic appearing mild anterior wedging of a L1 and a few lower thoracic vertebral bodies. Mild lumb ar spondylosis. Chronic sclerotic bone lesion at C4 which can be seen on radiographs dated 12/05/2018 IMPRESSION: 1. Moderate emphysema. 2.. Sclerotic bone lesions which are unchanged since prior imaging as detailed above which could repr esent either bone islands or stable chronic metastatic disease. Reviewed, dictated and finalized at location B. IMPRESSION: 1. Moderate emphysema. 2.. Sclerotic bone lesions which are unchanged since prior imaging as detailed above which could represent either bone islands or stable chronic metastatic di sease.
[2025-03-16 10:52] LABS: Estimated Glomerular Filt Rate > 60
== END 2025-03-16 10:10 | disposition home or self-care (01) ==
PROVIDERS: PCP Internal Medicine; Visit Provider Internal Medicine Hematology & Oncology
DX: C79.51 Secondary malignant neoplasm of bone (principal); J43.9 Emphysema, unspecified; Z96.643 Presence of artificial hip joint, bilateral
CPT/HCPCS: 71260; 74177; 78306; A9503; Q9967

== ENCOUNTER 2025-04-21 09:42 | Outpatient (CLI) | payer MEDICARE, SELFPAY ==
--- OUTSIDE RECORDS SUMMARY | 2025-04-21 10:05 | XMS_ITS | Clinical Summary ---
Author Organization [facility] Address [address] [place] [address] Care Team Providers Care Sweat Band Sewer Name Role Phone Unavailable Primary Care Provider Unavailabl e Source Comments [facility],non-owned Affiliates and Associated Physician Practices is amultiple site organization consisting of ambulatory clinics and hospital sitesin [place], [place], [place]. This disclosure is being madepursuant to the Care Everywhere program and may not contain all information available regarding this patient. Last updated 18.[facility] Allergies No known active allergies Medications * [...] Date Recorded PHQ2 TOTAL SCORE 0 03/07/2023 [facility] of Occupat ional Health - [...] place to sleep or slept in a correction (including now)? No 03/03/2023 Sex and Gender [...] MEDICARE AWV CALENDAR YEAR 2024 INFLUENZA VACCINE (#1) 2025 9, 07/24/2018, 08/04/2015, Additional history exists Respiratory Syncytial [...] this topic Medical Devices Implanted Type Area Patient Biller Device Identifier Shelf Expiration Date Model / Serial / Lot Stent Enroute Uber Flx 7mm .065in 40mm Implanted:Qty : 1 on 03/05/2023 by Betty Crane DO at [facility] Stent - Vascular Right: Arterial [employer] [facility] 04/16/2025 SR-0740-C [id number] / / [id number] Description:IMPLANTED RIGHT CAROTID ARTERY Insurance [facility] MANAGED MEDICARE ADV Advance Directives * Full Code (Latest Code Status on File) Date Activated Date Inactivated Comments 03/03/2023 5:15 AM 03/08/2023 8:02 PM
--- OUTSIDE RECORDS SUMMARY | 2025-04-21 10:05 | XMS_ITS ---
Author Organization [facility] Office Address [address] [facility] [address] [facility] [address] [place] [address] Care Team Providers Care Roofing Sales Representative Name Role Phone HinsonDuyOwen Unavailable [phone] Medications Medication SIG (Take, Route, Frequency, Duration) Notes Start Date End Date Status Calcitriol 0.25 MCG 1 capsule Orally corrine ry other day; Duration: 05/30/2023 02/24/2024 Active Losartan Potassium 50 MG 1 tablet Orally Once a day; Duration: 05/30/2023 Active Ergocalciferol 1.25 MG (50962 UT) 1 capsule Orally Once a week; Duration: 90 day(s) 08/29/2023 05/25/2024 Active Social History Sex Assigned At : Social History Observation Description Sex Assigned At Male Encounters Encounter Location Date Provider Diagnosis [place] [facility] [address] [facility] [address] [place] [address] 01/23/2024 Owen Hinson Chronic kidney disease, stage [...] * CRISS CALERODOB: [birth year] (75 yo M)Acc No.[id number]:01/23/2024 Progress Notes Patient: CRISS FORRESTER Provider: Yao GARCIA MD, iRcky.Jamaal.Vandana.P, F.A.S.N. :1950 A ge:73 Y S ex:Male Date:01/23/2024 Address:[address] [place] [address] Subjective: * Chief Complaints: * * Medical History: * Medications: T aking Losartan Potassium 50 MG Tablet 1 tablet Orally Once a day , Taking Calcitriol 0.25 MCG Capsule 1 capsule Orally every other day , stop date 02/24/2024, Taking Ergocalciferol 1.25 MG (42763 UT) Capsule 1 capsule Orally Once a [...] Treatment: * Billing Information: * Visit Code: 91607 Office Visit, Est Pt., Level 4. * Procedure Codes: * Electronic signature of Marisela Hinson MD on 04/21/2025 at 10:05 AM CDT Sign off status: Pending * Provider: Yao GARCIA MD, Ricky.Jamaal.Vandana.P, F.A.S.N. Date: 0 01/23/2024 Generated for Printing/Faxing/eTransmitting on: 0 04/21/2025 10:05 AM CDT
--- OUTSIDE RECORDS SUMMARY | 2025-04-21 10:05 | XMS_ITS ---
Author Organization [facility] Office Address [address] [place] [address] Care Team Providers Care Sales And Service Technician Name Role Phone HinsonDuyOwen Unavailable [phone] Medications Medication SIG (Take, Route, Frequency, Duration) Notes Start Date End Date Status Losartan Potassium 50 MG 1 tablet Orally Once a day; Duration: 05/30/2023 Active Ergocalciferol 1.25 MG (77083 UT) 1 capsule Orally Once a week; Duration: 90 day(s) 08/29/2023 05/25/2024 Active Calcitriol 0.25 MCG 1 capsule Orally corrine ry other day; Duration: 90 05/30/2023 02/24/2024 Active Social History Sex Assigned At : Social History Observation Description Sex Assigned At Male Encounters Encounter Location Date Provider Diagnosis [place] [facility] 2043 [facility] 15 [place] [address] 11/21/2023 Owen Hinson Chronic kidney disease, stage [...] * CRISS CALERODOB: [birth year] (75 yo M)Acc No.[id number]:11/21/2023 Progress Notes Patient: CRISS FORRESTER Provider: Yao GARCIA MD, Ricky.Jamaal.Vandana.P, F.A.S.N. :1950 A ge:73 Y S ex:Male Date:11/21/2023 Address:[address] [place] [address] Subjective: * Chief Complaints: * * Medical History: * Medications: T aking Losartan Potassium 50 MG Tablet 1 tablet Orally Once a day , Taking Calcitriol 0.25 MCG Capsule 1 capsule Orally every other day , stop date 02/24/2024, Taking Ergocalciferol 1.25 MG (01126 UT) Capsule 1 capsule Orally Once a [...] Treatment: * Billing Information: * Visit Code: 35339 Office Visit, Est Pt., Level 4. * Procedure Codes: * Electronic signature of Marisela Hinson MD on 04/21/2025 at 10:04 AM CDT Sign off status: Pending * Provider: Yao GARCIA MD, Ricky.Jamaal.Vandana.P, F.A.S.N. Date: 0 11/21/2023 Generated for Printing/Faxing/eTransmitting on: 0 04/21/2025 10:04 AM CDT
--- OUTSIDE RECORDS SUMMARY | 2025-04-21 10:05 | XMS_ITS ---
Author Organization [facility] Office Address [address] [place] [place] [address] [place] [address] Care Team Providers Care Electric Transfer Operator Name Role Phone HinsonHemalathaOwen Unavailable [phone] Medications Medication SIG (Take, Route, Frequency, Duration) Notes Start Date End Date Status Losartan Potassium 50 MG 1 tablet Orally Once a day; Duration: 90 05/30/2023 Active Social History Sex Assigned At : Social History Observation Description Sex Assigned At Male Encounters Encounter Location Date Provider Diagnosis [place] [facility] [address] [address] 08/01/2024 Owen Hinson Chronic kidney disease, stage [...] * CRISS CALERODOB: [birth year] (75 yo M)Acc No.[id number]:08/01/2024 Progress Notes Patient: CRISS FORRESTER Provider: Yao GARCIA MD, F.A.C.P, F.A.S.N. :1950 A ge:74 Y S ex:Male Date:08/01/2024 Address:[address] [place] [address] Subjective: * Chief Complaints: * * Medical [...] Treatment: * Billing Information: * Visit Code: 05188 Office Visit, Est Pt., Level 4. * Procedure Codes: * Electronic signature of Marisela Hinson MD on 04/21/2025 at 10:05 AM CDT Sign off status: Pending * Provider: Yao GARCIA MD, F.A.C.P, F.A.S.N. Date: 10/01/2023 Generated for Printing/Faxing/eTransmitting on: 0 04/21/2025 10:05 AM CDT
--- OUTSIDE RECORDS SUMMARY | 2025-04-21 10:05 | XMS_ITS | Clinical Summary ---
Author Organization [facility] Facility Address [address] [place] [address] [place] [address], [place] [address] Care Team Providers Care Bullet Slugs Inspector Name Role Phone Naila Moreno MD Primary Care Provider [phone] Social History Tobacco Use Types Packs/Day Years [...] Pneumococcal Vaccine: 50+ Ye ars (1 of 1 - PCV) 2002 Influenza Vaccine (#1) 2025 Hepatitis B Vaccine Aged Out No longe r eligible based on patient's age to complete this topic Insurance Care Teams Bullet Slugs Inspector Relationship Specialty Start Date End Date Naila Moreno MD PCP - General Internal Medicine 11/30/23
--- OUTSIDE RECORDS SUMMARY | 2025-04-21 10:05 | XMS_ITS | Clinical Summary ---
Author Organization [facility] Address [address] [place] [address] Phone Care Team Providers Care Senior Technical Trainer Name Role Phone Unavailable Primary Care Provider [...] Encounters Date Type Department Care Team Description 03/23/2025 4:30 PM CDT Telephone Check Up [facility] Oncology and Hematology [place] [address] [place] [address] Maxwell Oleary MD 03/17/2025 Orders Only [facility] On[facility] and Hematology [place] [address] [place] [address] Maxwell Oleary MD 02/24/2025 Telephone [facility] Oncology and Hematology [facility] [address] [place] [address] Maxwell Oleary MD Follow Up Appointment 02/17/2025 External Device Data [facility] ABSTRACTION Provider, Abstract 02/17/2025 External Device Data [facility] ABSTRACTION Provider, Abstract 02/17/2025 External Device Data [facility] ABSTRACTION Provider, Abstract 02/13/2025 Orders Only [facility] Oncology and Hematology [place] [address] [place] [address] Maxwell Oleary MD 02/10/2025 3:00 PM CDT Office Visit [facility] and Hematology [place] [address] [address] [place] [address] Maxwell Oleary MD Cancer, metastatic to bone [...] 02/10/2025 2:49 PM CDT Plan of Treatment Health Maintenance [...] DIABETES HBA1C Q 6 MONTHS 09/02/2023 03/03/2023 COVID-19 Vaccine (3 - 2023-2 5 season) 2024 01/27/2021, 12/26/2020 INFLUENZA VACCINE (#1) 2025 9, 07/24/2018, 08/04/2015, Additional history exists Procedures Procedure Name Priority Date/Time Associated Diagnosis Comments CT CHEST ABDOMEN PELVIS W CONT Routine 03/16/2025 1:47 PM CDT COMPREHENSIVE METABOLIC PANEL Routine 02/10/2025 3:01 PM CDT PROTEIN ELECTROPHORESIS, CSF Routine 02/10/2025 12:12 PM CDT from Last 3 Months Results * CT CHEST ABDOMEN PELVIS W CONT (03/16/2025 1:47 PM CDT) Anatomical Region Laterality Modality Chest Computed Tomogra phy us Mxawell Oleary MD CT ORDERABLES Final Result * COMPREHENSIVE METABOLIC PANEL (02/10/2025 3:01 PM CDT) Blood us Maxwell Oleary MD CHEMISTRY ORDERABLES Final Resu lt * PROTEIN ELECTROPHORESIS, CSF (02/10/2025 12:12 PM CDT) Cerebrospinal fluid CEREBROSPINAL FLUID / Unknown us Maxwell Oleary MD BODY FLUIDS AND STOOLS Final Re sult from Last [address] [facility] Address: [facility] [address] [place] [address]
--- OUTSIDE RECORDS SUMMARY | 2025-04-21 10:05 | XMS_ITS | Patient Health Record ---
Author Organization [facility] Address [address] [place] [address] Care Team Providers Care Insurance Sales Manager Name Role Phone Sravan Owen Unavailable [phone] Reason For Referral No Information Medications Medication SIG (Take, Route, Frequency, Duration) Notes Start Date End Date Status Calcitriol 0.25 MCG 1 capsule Orally Onc e a day; Duration: 90 day(s) 08/01/2024 04/28/2025 Active Losartan Potassium 50 MG 1 tablet Orally Once a day; Duration: 90 05/30/2023 Active Social History Sex Assigned At : Social History Observation Description Sex Assigned At Male Problems Problem Type SNOMED Code ICD Code Onset Dates Problem Status W/U Status Risk Notes Problem Hyperglycemia due to type 2 diabetes mellitus (265262643891603) Type 2 diabetes mellitus with hyperglycemia (E11.65) Active confirmed Problem Acute exacerbation of chronic obstructive airways disease (287865168) Chronic obstructive pulmonary disease with (acute) exacerbation (J44.1) Active confirmed Problem Chronic kidney disease stage 2 (616640220) Chronic kidney disease, stage 2 (mild) (N18.2) Active confirmed Problem Proteinuria (93694468) Other proteinuria (R80.8) Active confirmed Problem Essential hypertension (69093609) Essential hypertension (I10) Active confirmed Encounters Encounter Location Date Provider Diagnosis [place] [facility] [address] [address] 08/01/2024 Owen Hinson Chronic kidney disease, stage 2 (mild) N18.2 ; Other proteinuria R80.8 ; Type 2 diabetes mellitus with hyperglycemia E11.65 ; Chronic obstructive pulmonary disease with (acute) exacerbation J44.1 and Essential hypertension I10 [place] [facility] [address] [address] 08/01/2024 Owen Hinson Assessments Encounter Date Diagnosis [...]
[2025-04-21 11:02] LABS: Anion Gap 7 mmol/L (4-12); Blood Urea Nitrogen 23 mg/dL (9-20); Calcium 10.1 mg/dL (8.4-10.2); Carbon Dioxide 25 mmol/L (22-30); Chloride 105 mmol/L (98-107); Estimated Glomerular Filt Rate > 60; Glucose 187 mg/dL (65-110); Potassium 3.9 mmol/L (3.4-5.0); Sodium 137 mmol/L (137-145)
[2025-04-21 11:17] LABS: INR 1.0; Prothrombin Time 13.2 Seconds (11.1-14.7)
[2025-04-21 11:18] LABS: Partial Thromboplastin Time 29.5 Seconds (22.3-36.8)
--- NOTE | 2025-04-22 11:41 | PCDIET ---
04/22/25: Pt did not keep this mornings MNT appt. I reached out to patient via phone, unfortunately his mailbox i s full. Faxed update to referring provider.
== END 2025-04-21 09:43 | disposition home or self-care (01) ==
PROVIDERS: Anesthesiology; Visit Provider Orthopaedic Surgery
DX: N18.9 Chronic kidney disease, unspecified (principal); E11.9 Type 2 diabetes mellitus without complications; M75.122 Complete rotator cuff tear or rupture of left shoulder, not specified as traumatic; Z01.818 Encounter for other preprocedural examination
CPT/HCPCS: 36415; 80048; 85610; 85730; 87081

== ENCOUNTER 2025-04-27 01:11 | Day surgery (SDC) | payer MEDICARE, SELFPAY ==
[2025-04-17 14:02] VITALS: BMI 22.6
--- NOTE | 2025-04-17 14:37 | PC.NURSE ---
Addendum entered by Cihchi Arroyo RN 04/20/25 13:39: SPOKE WITH DR HERNANDEZ'S OFFICE TO CONFORM MEDS TO HOLD. HOLD MELOXICAM (ALL NSAIDS) 7 DAYS PRE-OP. CONT ASPIRIN UNTIL DAY OF SURGERY R/T CVA RISK. CALLED PT'S DAUGHTER, TIRSO, TO RELAY THESE ORDERS, SHE REPORTS UNDERSTANDING. Original Note: Report to the Outpatient Waiting Room, entrance under the green pavilion [facility], at time ___6:00AM__ on date __04/27/25___. Planned Procedure Time: __7:30AM____.? Time changes happen often and if your time is changed the preop area will call you the afternoon before. - You and your visitor will be asked to self-screen and do not enter if you have any COVID symptoms. Please call surgeon if you need to reschedule. - A mask is optional within the hospital at this time. Patients may have clear liquids (water, carbonated beverages, clear teas, apple juice) until 3 hours prior to surgery (4:30AM) with a maximum of 20 ounces. - No food from midnight until time of surgery and no smoking, or chewing tobacco (or any form of nicotine). No chewing gum, candy or mints. Take only the following medications with a SIP of water on the morning of surgery: ____METOPROLOL, TRELEGY ELLIPA INHALER MAY TAKE OXYCODONE AND USE ALBUTEROL INHALER NEEDED. DO NOT STOP ANY OF YOUR OTHER PRESCRIPTION MEDICATIONS PRIOR TO SURGERY EXCEPT THE FOLLOWING Hold all vitamins and supplements for 3 days per anesthesiologist. Medications to discontinue per physician HOLD ASPIRIN AND MELOXICAM 7 DAYS PRE-OP PER DR HERNANDEZ. Date to take last dose 04/19/25 Please no make-up, nail arabic, hairspray, perfume, deodorant, or body powder the day of surgery.? No jewelry (including any body piercings) or valuables the day of surgery, leave them at home.? Please take a shower or bath the night before, or the morning of, surgery with an antibacterial soap.? Wear comfortable, loose fitting clothing.? - Jewelry must be removed prior to entering the operating room.? Rings and piercings that are not removed may be cut off. - The hospital will not accept responsibility for valuables.? - Please leave all valuables, including medications, at home the day of surgery. If you are going home after surgery, a licensed driver guide must drive you home.? - NO public transportation without another adult if you receive anesthesia. - We recommend that an adult stay with you for 24 hours following discharge. - We also recommend that you do not drive, make important decision, drink alcoholic beverages, or take any drugs that were not prescribed by your health care provider for at least 24 hours after your discharge time. Follow any additional instructions given to you from your surgeon. Telephone instructions given to ____PATIENT and asked if any additional questions and then verbalized understanding. Patient advised to call surgeon office or pre surgery nurse liaison [phone] if any additional questions.
--- NOTE | 2025-04-24 08:37 | PM.IMHP ---
H&P: HPI History of Present Illness Date/Time: 04/24/25 08:37 Chief Complaint: Rotator cuff tear left shoulder Narrative: 75-year-old male who presents today for arthroscopy of his left shoulder with open rotator cuff repair, possible biceps tenodesis possible dermal allograft. Patient injured his left shoulder in September this year. He slipped on ice falling hard. He had immediate pain in the shoulder as well as immediate weakness in the shoulder. Patient tried to live with this however he continues to have significant symptoms in the shoulder. Was seen in the office and was sent for MRI scan of the shoulder. MRI scan showed an acute large tear of the supraspinatus as well as the infraspinatus muscle. Prior to his fall patient had no symptoms in the left shoulder. He is a very active 75-year-old. MRI scan did not show any significant atrophy or fatty infiltration of the muscle bellies which would correlate to this being an acute tear. Patient feels he would rather proceed with surgery to repair the tendon rather than live with the weakness in the shoulder. Patient was scheduled for surgery in January of this year. Had a COPD exacerbation several weeks prior surgery and therefore surgery was canceled. He has seen his enrollment eligibility representative, enrollment eligibility representative feels patient had exacerbation of his COPD at that time but at this point he feels that the patient is stable and he has been cleared for surgery. Review of Systems Review of Systems: All systems reviewed & are unremarkable except as noted in HPI and below PMFSH Past Medical History Medical History Diabetes COPD (chronic obstructive pulmonary disease) Hypertension Hyperlipidemia COPD (chronic obstructive pulmonary disease) Diabetes Hypertension Surgical History Surgical History H/O neck surgery Previous back surgery History of hip surgery No pertinent past surgical history Family History Family History Mother Acute myocardial infarction Congestive heart failure Chronic obstructive pulmonary disease Hypertension Asthma Sibling History of blood clots Colon cancer Grandparent Cerebrovascular accident Social History Social History Social History: current smoker Smoking packs per day: 1 Smoking cigarettes per day: 20.0 Years smoked: 50 Smoking pack-years: 50.00 Smoking status: Former smoker Tobacco type: cigarettes Smoking end date: 03/17/23 Alcohol intake: former Alcohol use details: not drank in 15 yrs, Heavy drinker before Substance use: current Substance use type: painkillers Other substance usage details: Pain killers for shoulder injury Do You Feel Safe in your Home?: Yes Lack of Transportation: No Lack of Food: Sometimes True Current Housing: I Have Housing Concerned About Future Housing: No Difficulty Paying Gas/Electric Bills: YES Difficulty Paying for Meds: YES Currently Unemployed: No Education: High School Diploma/GED Difficulty w/ Childcare or Family Care: No Living arrangements: with family Additional living arrangements comments: DAUGHTER, ANTIONE AND KIDS STAYING WITH HIM CURRENTLY Occupation/Education: retired Spiritual care concerns: No Meds Home Medications and Allergies Home Medications ?Medication ?Instructions ?Recorded ?Confirmed ?Type metformin 500 mg tablet,extended 500 mg PO BID 05/26/24 04/17/25 History release 24 hr lansoprazole 30 mg capsule,delayed 30 mg PO DAILY #90 caps 12/16/24 04/17/25 Rx release atorvastatin 40 mg tablet 40 mg PO DAILY 01/26/25 04/17/25 History albuterol sulfate 2.5 mg/3 mL 2.5 mg (3 mL) inhalation Q4H PRN 01/29/25 04/17/25 Rx (0.083 %) solution for nebulization shortness of breath or wheezing #75 mL albuterol sulfate 90 mcg/actuation 2 puff inhalation Q6H PRN 01/29/25 04/17/25 Rx aerosol inhaler (Ventolin HFA) Shortness Of Breath Or Wheezing #1 g alcohol swabs (Alcohol Pads) 1 pad topical .3 times a day #200 01/29/25 04/17/25 Rx ea blood sugar diagnostic (OneTouch #100 ea 01/29/25 04/17/25 Rx Verio test strips) blood-glucose meter (Blood Glucose #1 ea 01/29/25 04/17/25 Rx Monitoring kit) fluticasone fur. 200 mcg-umeclid 1 inh inhalation DAILYRT #1 ea 01/29/25 04/17/25 Rx 62.5 mcg-vilant 25 mcg inhalat.powder (Trelegy Ellipta) lancets 28 gauge (Comfort EZ #100 ea 01/29/25 04/17/25 Rx Lancets) aspirin 81 mg chewable tablet 81 mg PO DAILY 02/03/25 04/17/25 History celecoxib 200 mg capsule 200 mg PO DAILY 02/03/25 04/17/25 History chlorthalidone 25 mg tablet 25 mg PO DAILY 02/03/25 04/17/25 History losartan 50 mg tablet 50 mg PO BID 02/03/25 04/17/25 History metoprolol succinate 50 mg 50 mg PO DAILY 02/03/25 04/17/25 History tablet,extended release 24 hr Trelegy Ellipta 100 mcg-62.5 #2 Samples 04/01/25 04/17/25 Sample mcg-25 mcg powder for inhalation (ijdvlbmgfwv-npvoolton-antksahr) oxycodone 5 mg tablet 2.5 mg (1/2 x 5 mg) PO Q4H PRN 04/07/25 04/17/25 Rx pain #20 tabs glucagon 3 mg/actuation nasal spray 3 mg intranasal ONCE PRN 04/17/25 04/17/25 History hypoglycemia meloxicam 15 mg tablet 15 mg PO DAILY 04/17/25 04/17/25 History Allergies Allergy/AdvReac Type Severity Reaction Status Date / Time No Known Allergies Allergy Verified 04/17/25 13:49 Exam Narrative: 75-year-old male alert pleasant. His left shoulder he has elevation to 135 external rotation to 50 internal rotation L1. He has moderate weakness with external rotation and moderately severe weakness with thumbs-down abduction testing. Patient has severe pain with range of motion of the shoulder. Biceps muscle belly has normal contour. 2+ radial pulse. Subscap liftoff is intact, negative abdominal compression test. Patient complains of no numbness or tingling in the arm. He has normal motor function to all muscle groups left upper extremity. Resp: Auscultation: clear to auscultation bilaterally Cardio: Rate: regular rate Rhythm: regular rhythm Assessment and Plan Assessment and plan (1) Complete rotator cuff tear of left shoulder: Qualifiers: Rotator cuff tear trauma status: traumatic Encounter type: subsequent encounter Qualified Code(s): S46.012D - Strain of muscle(s) and tendon(s) of the rotator cuff of left shoulder, subsequent encounter Code(s): M75.122 - Complete rotator cuff tear or rupture of left shoulder, not specified as traumatic Status: Acute Plan 75-year-old male who has had acute large tear of the rotator cuff tendon left shoulder her injury happened in September. Patient has significant weakness in the shoulder which he states he did not have prior to the fall. Patient does not wish to live with the weakness in the shoulder, he would rather proceed with surgery to repair the tendon. Surgical procedures well as risks complications were discussed in detail questions were answered and we will proceed. Patient had seen cardiology prior to his scheduled surgery in January and was cleared. Again at this point enrollment eligibility representative feels that he is stable and he is cleared from surgery as well. Patient will continue his baby aspirin through the time surgery due to a previous history of TIA.
[2025-04-27] VITALS (15 sets, daily range): BP systolic 146–180; BP diastolic 67–99; PULSE 59–76; RESP 10–18; TEMP 36.2–36.4; O2SAT 93–100; BMI 22.6
--- OUTSIDE RECORDS SUMMARY | 2025-04-27 01:18 | XMS_ITS | Clinical Summary ---
Author Organization [facility] Facility Address [address] [facility] [address] [address] Care Team Providers Care Children Counselor Name Role Phone Naila Moreno MD Primary Care Provider [phone] Social History Tobacco Use Types Packs/Day Years [...] patient's age to complete this topic Insurance [facility] Medicare Care Teams Children Counselor Relationship Specialty Start Date End Date Naila Moreno MD [address], [address] [place] [address] PCP - General Internal Medicine 11/30/23
--- OUTSIDE RECORDS SUMMARY | 2025-04-27 01:18 | XMS_ITS ---
Author Organization [facility] Address [address] [place] [address] Care Team Providers Care Aoc Airspace Control Officer Name Role Phone HinsonDuyOwen Unavailable [phone] Medications Medication SIG (Take, Route, Frequency, Duration) Notes Start Date End Date Status Losartan Potassium 50 MG 1 tablet Orally Once a day; Duration: 05/30/2023 Active Ergocalciferol 1.25 MG (13336 UT) 1 capsule Orally Once a week; Duration: 90 day(s) 08/29/2023 05/25/2024 Active Calcitriol 0.25 MCG 1 capsule Orally corrine ry other day; Duration: 90 05/30/2023 02/24/2024 Active Social History Sex Assigned At : Social History Observation Description Sex Assigned At Male Encounters Encounter Location Date Provider Diagnosis [place] [facility] [address] [facility] [address] [place] [address] 11/21/2023 Owen Hinson Chronic kidney disease, stage [...] * CRISS CALERODOB: [birth year] (75 yo M)Acc No.[id number]:11/21/2023 Progress Notes Patient: CRISS FORRESTER Provider: Yao GARCIA MD, Ricky.Jamaal.Vandana.P, F.A.S.N. :1950 A ge:73 Y S ex:Male Date:11/21/2023 Address:[address] [place] [address] Subjective: * Chief Complaints: * * Medical History: * Medications: T aking Losartan Potassium 50 MG Tablet 1 tablet Orally Once a day , Taking Calcitriol 0.25 MCG Capsule 1 capsule Orally every other day , stop date 02/24/2024, Taking Ergocalciferol 1.25 MG (99117 UT) Capsule 1 capsule Orally Once a [...] Treatment: * Billing Information: * Visit Code: 16089 Office Visit, Est Pt., Level 4. * Procedure Codes: * Electronic signature of Marisela Hinson MD on 04/27/2025 at 01:18 AM CDT Sign off status: Pending * Provider: Yao GARCIA MD, Ricky.Jamaal.Vandana.P, F.A.S.N. Date: 0 11/21/2023 Generated for Printing/Faxing/eTransmitting on: 0 04/27/2025 01:18 AM CDT
--- OUTSIDE RECORDS SUMMARY | 2025-04-27 01:18 | XMS_ITS | Clinical Summary ---
Author Organization [facility] Address [address] [place] [address] Phone Care Team Providers Care Astrobiologist Name Role Phone Unavailable Primary Care Provider [...] times daily with meals. Active albuterol (PROVENTIL,TENISHA JAONIE) 2.5 mg/0.5 mL Solution for Nebulization Take [...] Encounters Date Type Department Care Team Description 04/21/2025 External Device Data [facility] ABSTRACTION Provider, Abstract 03/23/2025 4:30 PM CDT Telephone Check Up [facility] Oncology and Hematology - [place] [address] [place] [address] Maxwell Oleary MD 03/17/2025 Orders Only [facility] Oncology and Hematology - [place] [address] [place] [address] Maxwell Oleary MD 02/24/2025 Telephone [facility] Oncology and Hematology - [place] [address] [place] [address] Maxwell Oleary MD Follow Up Appointment 02/17/2025 External Device Data [place] ABSTRACTION Provider, Abstract 02/17/2025 External Device Data [place] ABSTRACTION Provider, Abstract 02/17/2025 External Device Data [place] ABSTRACTION Provider, Abstract 02/13/2025 Orders Only [facility] Oncology and Hematology - [place] [address] [place] [address] Maxwell Oleary MD 02/10/2025 3:00 PM CDT Office Visit [facility] Oncology and Hematology - [place] [address] [place] [address] Maxwell Oleary MD Cancer, metastatic to bone [...] Laterality Modality Chest Computed Tomogra phy us Maxwell Oleary MD CT ORDERABLES Final Result * COMPREHENSIVE METABOLIC PANEL (02/10/2025 3:01 PM CDT) Blood us Maxwell Oleary MD CHEMISTRY ORDERABLES Final Resu lt * PROTEIN ELECTROPHORESIS, CSF (02/10/2025 12:12 PM CDT) Cerebrospinal fluid CEREBROSPINAL FLUID / Unknown us Maxwell Oleary MD BODY FLUIDS AND STOOLS Final Re sult from Last 3 Months Insurance [facility] [address] [address]
--- OUTSIDE RECORDS SUMMARY | 2025-04-27 01:18 | XMS_ITS ---
Author Organization [facility] Address [address] [place] [address] [place] [address] Care Team Providers Care Propeller Driven Airplane Mechanic Name Role Phone HinsonHemalathaOwen Unavailable [phone] Medications Medication SIG (Take, Route, Frequency, Duration) Notes Start Date End Date Status Losartan Potassium 50 MG 1 tablet Orally Once a day; Duration: 90 05/30/2023 Active Social History Sex Assigned At : Social History Observation Description Sex Assigned At Male Encounters Encounter Location Date Provider Diagnosis [place] [facility] [address] [address] 08/01/2024 Owen Hinson Chronic kidney disease, stage [...] * CRISS CALERODOB: [birth year] (75 yo M)Acc No.[id number]:08/01/2024 Progress Notes Patient: CRISS FORRESTER Provider: Yao GARCIA MD, F.A.C.P, F.A.S.N. :1950 A ge:74 Y S ex:Male Date:08/01/2024 Address:[address] [place] [address] Subjective: * Chief Complaints: * * Medical [...] Treatment: * Billing Information: * Visit Code: 48176 Office Visit, Est Pt., Level 4. * Procedure Codes: * Electronic signature of Marisela Hinson MD on 04/27/2025 at 01:18 AM CDT Sign off status: Pending * Provider: Yao GARCIA MD, F.A.C.P, F.A.S.N. Date: 10/01/2023 Generated for Printing/Faxing/eTransmitting on: 0 04/27/2025 01:18 AM CDT
--- OUTSIDE RECORDS SUMMARY | 2025-04-27 01:19 | XMS_ITS | Clinical Summary ---
Author Organization [facility] Address [address] [place] [address] Care Team Providers Care Hooker Up Name Role Phone Unavailable Primary Care Provider Unavailabl e Source Comments [facility],non-owned Affiliates and Associated Physician Practices is amultiple site organization consisting of ambulatory clinics and hospital sitesin [place], [place], [place] and [place]. This disclosure is being madepursuant to the Care Everywhere program and may not contain all information available regarding this patient. Last updated 18.[facility] Allergies No known active allergies Medications * [...] Date Recorded PHQ2 TOTAL SCORE 0 03/07/2023 [facility] - Occupational [...] place to sleep or slept in a residential (including now)? No 03/03/2023 Sex and Gender [...] this topic Medical Devices Implanted Type Area A P Manager Device Identifier Shelf Expiration Date Model / Serial / Lot Stent Enroute Uber Flx 7mm .065in 40mm Implanted:Qty : 1 on 03/05/2023 by Betty Crane DO at [facility] Stent - Vascular Right: Arterial ELENZA [facility] 04/16/2025 SR-0740-[id number] S / / [id number] Description:IMPLANTED RIGHT CAROTID ARTERY Insurance [facility] MANAGED MEDICARE ADV Advance Directives * Full Code (Latest Code Status on File) Date Activated Date Inactivated Comments 03/03/2023 5:15 AM 03/08/2023 8:02 PM
--- OUTSIDE RECORDS SUMMARY | 2025-04-27 01:19 | XMS_ITS ---
Author Organization [facility] Address [address] [facility] [address] [facility] [address] [place] [address] Care Team Providers Care Ground Water Pump Installer Name Role Phone HinsonDuyOwen Unavailable [phone] Medications Medication SIG (Take, Route, Frequency, Duration) Notes Start Date End Date Status Calcitriol 0.25 MCG 1 capsule Orally corrine ry other day; Duration: 05/30/2023 02/24/2024 Active Losartan Potassium 50 MG 1 tablet Orally Once a day; Duration: 05/30/2023 Active Ergocalciferol 1.25 MG (52721 UT) 1 capsule Orally Once a week; Duration: 90 day(s) 08/29/2023 05/25/2024 Active Social History Sex Assigned At : Social History Observation Description Sex Assigned At Male Encounters Encounter Location Date Provider Diagnosis [place] [facility] [address] [facility] [address] [place] [address] 01/23/2024 Owen Hinson Chronic kidney disease, stage [...] Of Treatment No Information Progress Notes * RCISS CALERODOB: [birth year] (75 yo M)Acc No.[id number]:01/23/2024 Progress Notes Patient: CRISS FORRESTER Provider: Yao GARCIA MD, Ricky.Jamaal.Vandana.P, F.A.S.N. :1950 A ge:73 Y S ex:Male Date:01/23/2024 Address:[address] [place] [address] Subjective: * Chief Complaints: * * Medical History: * Medications: T aking Losartan Potassium 50 MG Tablet 1 tablet Orally Once a day , Taking Calcitriol 0.25 MCG Capsule 1 capsule Orally every other day , stop date 02/24/2024, Taking Ergocalciferol 1.25 MG (63552 UT) Capsule 1 capsule Orally Once a [...] Treatment: * Billing Information: * Visit Code: 81983 Office Visit, Est Pt., Level 4. * Procedure Codes: * Electronic signature of Marisela Hinson MD on 04/27/2025 at 01:18 AM CDT Sign off status: Pending * Provider: Yao GARCIA MD, Ricky.Jamaal.Vandana.P, F.A.S.N. Date: 0 01/23/2024 Generated for Printing/Faxing/eTransmitting on: 0 04/27/2025 01:18 AM CDT
--- OUTSIDE RECORDS SUMMARY | 2025-04-27 01:19 | XMS_ITS | Patient Health Record ---
Author Organization [facility] Address [address] [place] [address] Care Team Providers Care Welfare Administrator Name Role Phone Sravan Owen Unavailable [phone] Reason For Referral No Information Medications Medication [...] Hyperglycemia due to type 2 diabetes mellitus (166631078499282) Type 2 diabetes mellitus with hyperglycemia (E11.65) Active confirmed Problem Acute exacerbation of chronic obstructive airways disease (708064776) Chronic obstructive pulmonary disease with (acute) exacerbation (J44.1) Active confirmed Problem Chronic kidney disease stage 2 (347936693) Chronic kidney disease, stage 2 (mild) (N18.2) Active confirmed Problem Proteinuria (61221228) Other proteinuria (R80.8) Active confirmed Problem Essential hypertension (29224304) Essential hypertension (I10) Active confirmed Encounters Encounter Location Date Provider Diagnosis [place] [facility] [address] [address] 08/01/2024 Owen Hinson Chronic kidney disease, stage 2 (mild) N18.2 ; Other proteinuria R80.8 ; Type 2 diabetes mellitus with hyperglycemia E11.65 ; Chronic obstructive pulmonary disease with (acute) exacerbation J44.1 and Essential hypertension I10 [place] [facility] [address] [address] 08/01/2024 Owen Hinson Assessments Encounter Date Diagnosis [...]
[2025-04-27] MEDS: LACTATED RINGERS 1,000 ML 30 ML IV CONT ×2 (06:45→10:08)
[2025-04-27] MEDS: KETOROLAC 15 MG/ML VIAL (*BKC) IV PUSH (07:08)
[2025-04-27] MEDS: ACETAMINOPHEN 500 MG TABLET 1000 MG PO (07:08)
[2025-04-27] MEDS: VANCOMYCIN HCL 1,000 MG in SODIUM CHLORIDE 0.9% IV 250 ML 250 MG IVPB (07:10)
--- NOTE | 2025-04-27 07:14 | WPDHPUPDATE1 ---
History and Physical Update Update Date/Time: 04/27/25 07:14 History and Physical has been reviewed, including an updated exam of the patient. There are NO changes in the patient's condition. Risks, benefits, and alternatives have been discussed and questions answered. Patient agrees to proceed with procedure.
--- NOTE | 2025-04-27 07:22 | P.PNAN_ITS ---
Anes - Initial Pre Proc Eval Procedure: Operation Date: 04/27/25 07:30 Proposed Procedures p Left Shoulder Arthroscopy, Open Rotator Cuff Repair, Possible Biceps Tenodesis, Possible Arthrex Dermal Allograft, Proceed as Indicated - Balbir Wilkins MD Date/Time: 04/27/25 07:22 Surgeon: Balbir Wilkins MD Pre Op Diagnosis: lrg rot cuff tear left Patient Data Age: 75 Gender: M Height: 1.63 m Weight: 60 kg Allergies Allergy/AdvReac Type Severity Reaction Status Date / Time No Known Allergies Allergy Verified 04/17/25 13:49 Home Medications ?Medication ?Instructions ?Recorded ?Confirmed ?Type metformin 500 mg tablet,extended 500 mg PO BID 05/26/24 04/17/25 History release 24 hr lansoprazole 30 mg capsule,delayed 30 mg PO DAILY #90 caps 12/16/24 04/17/25 Rx release atorvastatin 40 mg tablet 40 mg PO DAILY 01/26/25 04/17/25 History albuterol sulfate 2.5 mg/3 mL 2.5 mg (3 mL) inhalation Q4H PRN 01/29/25 04/17/25 Rx (0.083 %) solution for nebulization shortness of breath or wheezing #75 mL albuterol sulfate 90 mcg/actuation 2 puff inhalation Q6H PRN 01/29/25 04/17/25 Rx aerosol inhaler (Ventolin HFA) Shortness Of Breath Or Wheezing #1 g alcohol swabs (Alcohol Pads) 1 pad topical .3 times a day #200 01/29/25 04/17/25 Rx ea blood sugar diagnostic (OneTouch #100 ea 01/29/25 04/17/25 Rx Verio test strips) blood-glucose meter (Blood Glucose #1 ea 01/29/25 04/17/25 Rx Monitoring kit) fluticasone fur. 200 mcg-umeclid 1 inh inhalation DAILYRT #1 ea 01/29/25 04/17/25 Rx 62.5 mcg-vilant 25 mcg inhalat.powder (Trelegy Ellipta) lancets 28 gauge (Comfort EZ #100 ea 01/29/25 04/17/25 Rx Lancets) aspirin 81 mg chewable tablet 81 mg PO DAILY 02/03/25 04/17/25 History celecoxib 200 mg capsule 200 mg PO DAILY 02/03/25 04/17/25 History chlorthalidone 25 mg tablet 25 mg PO DAILY 02/03/25 04/17/25 History losartan 50 mg tablet 50 mg PO BID 02/03/25 04/17/25 History metoprolol succinate 50 mg 50 mg PO DAILY 02/03/25 04/17/25 History tablet,extended release 24 hr Trelegy Ellipta 100 mcg-62.5 #2 Samples 04/01/25 04/17/25 Sample mcg-25 mcg powder for inhalation (zuinftvhjjg-rkqpokvwj-fwxxokcm) oxycodone 5 mg tablet 2.5 mg (1/2 x 5 mg) PO Q4H PRN 04/07/25 04/17/25 Rx pain #20 tabs glucagon 3 mg/actuation nasal spray 3 mg intranasal ONCE PRN 04/17/25 04/17/25 History hypoglycemia meloxicam 15 mg tablet 15 mg PO DAILY 04/17/25 04/17/25 History Laboratory Tests 04/27/25 06:31 POC Capillary Glucose 187 H mg/dl (65-105) Patient hx anesthesia problems: none Family hx anesthesia problems: none Results Review: All pre-operative results and documents have been reviewed as part of the pre- operative evaluation. [facility] Past Medical History Medical History Diabetes COPD (chronic obstructive pulmonary disease) Hypertension Hyperlipidemia COPD (chronic obstructive pulmonary disease) Diabetes Hypertension Surgical History Surgical History H/O neck surgery Previous back surgery History of hip surgery No pertinent past surgical history Family History Family History Mother Acute myocardial infarction Congestive heart failure Chronic obstructive pulmonary disease Hypertension Asthma Sibling History of blood clots Colon cancer Grandparent Cerebrovascular accident Social History Social History Social History: current smoker Smoking packs per day: 1 Smoking cigarettes per day: 20.0 Years smoked: 50 Smoking pack-years: 50.00 Smoking status: Former smoker Tobacco type: cigarettes Smoking end date: 02/15/23 Alcohol intake: former Alcohol use details: not drank in 15 yrs, Heavy drinker before Substance use: current Substance use type: painkillers Other substance usage details: Pain killers for shoulder injury Do You Feel Safe in your Home?: Yes Lack of Transportation: No Lack of Food: Sometimes True Current Housing: I Have Housing Concerned About Future Housing: No Difficulty Paying Gas/Electric Bills: YES Difficulty Paying for Meds: YES Currently Unemployed: No Education: High School Diploma/GED Difficulty w/ Childcare or Family Care: No Living arrangements: alone Occupation/Education: retired Spiritual care concerns: No Anes - Eval Final PreProcedure Day of Procedure 04/27/25 07:22 Patient weight: normal Heart: regular rate and rhythm Lungs: clear to auscultation, normal air movement and decreased breath sounds Airway: Mallampati scale class II and special considerations (Upper and lower dentures/partials. ) Neurological: alert and oriented Last oral intake: >/= 8 hours ASA classification: III Emergent: no Anesthetic plan: proceed Anesthesia type and monitoring: general ETT and standard monitoring Results Review: All pre-operative results and documents have been reviewed as part of the pre- operative evaluation. COPD w 50 pack years, hx of R carotid stent, DM fsbs 189. Pt w overall improvement in his pulmon status and stable at this point w improvement of blood sugars (reported). Discussed case w pt and Dr Wilkins. Informed Consent: The patient's anesthetic plan and its attendant risks and benefits were discussed with the patient/family/POA. Questions were solicited and answers provided to the satisfaction of the patient/family/POA.
[2025-04-27] MEDS: ceFAZolin 2 GM in SODIUM CHLORIDE 0.9% IV 50 ML 100 ML IVPB (07:30)
[2025-04-27] MEDS: VANCOMYCIN HCL 1,000 MG VIAL 1000 MG TOPICAL (08:22)
[2025-04-27] MEDS: KETOROLAC 15 MG/ML VIAL (*BKC) 7.5 MG IV PUSH (10:20)
--- NOTE | 2025-04-27 10:20 | W.PM.PROC2 ---
Procedure Note - Detailed Date of Procedure 04/27/25 Pre-op Diagnosis large rot cuff tear left shoulder, subacute. Post-op Diagnosis Same Procedure Performed Diagnostic arthroscopy and CA ligament release time a mini open rotator cuff repair left shoulder Surgeon Balbir Wilkins MD Liquor Commissioner [facility] Anesthesia General Description of Procedure Patient was brought to the operating room and general anesthesia was administered. He was felt not to be a safe candidate for an interscalene block because of his history of severe COPD and history of respiratory insufficiency. He received 2 g Ancef weight based vancomycin preoperatively. Examination under anesthesia resume revealed some stiffness in the shoulder in a gentle manipulation was performed. He was placed in the beach chair position. The left shoulder was prepped draped usual fashion. All the skin was covered with IO band except the surgical site area. Posterior portals placed. Hip was a little bit of blood in the shoulder from the navicular a ruvalcaba. Was mild chondromalacia superficially of the superomedial humeral head. Minimal fraying of the labrum. There was some fraying of the proximal most aspect of the long head of the biceps without compromise of the thickness of the biceps. The biceps looked normal as he enters the bicipital groove. Subscapularis looked normal. Arthroscope was placed in the subacromial space. A to superior and mid lateral portals utilized for superior for outflow midlateral to ablate the CA ligament the anterior acromion. There was no significant bony prominence of the anterior acromion. With the arthroscopic instruments removed, remaining skin was covered with IO band and outer gloves changed. A 4 cm longitudinal incision was made from the superior surface of the anterior acromion extending anterolaterally over the tendinous raphe a the deltoid. The deltoid was split for a distance of 3.5 cm. Proximally 1 cm the deltoid was elevated off the anterior acromion for exposure. Undersurface of the acromion was smoothed with a Emiliano for aspirin. Self-retaining retractor was placed. The retracted edge of the supraspinatus and infraspinatus tendons as visualized retracted medially the lateral edge rolled and of falling and very adequate thickness. The supraspinatus footprint was completely void of residual rotator cuff tissue attachment. The rotator cuff interval capsule was torn exposing the long of the biceps proximal bicipital groove. The subscapularis portion was normal. Tear extended posteriorly into the lower aspect of the infraspinatus where there was a small split the tendon. Stay sutures were placed in the lateral aspect of the medially retracted rotator cuff and it was fairly mobile. Additionally we passed a medium tear elevator on the surfaces of supraspinatus and infraspinatus muscles to release adhesions which gave us ample mobility for the tendon to easily reach its anatomic insertion point with the arm at all positions. The greater tuberosity was thoroughly prepared scraping all residual soft tissue off with a clean 15 blade scalpel and then the 2 mm bur was used to make multiple bur holes adjacent to the articular surface for passage of sutures. We started by placing 2 of the Eliezer 1.4 mm suture tapes at the anterior cable the supraspinatus and secure this down. The the transverse tear of the rotator cuff interval closed easily with interrupted 0 Ethibonds. With this done we reapproximated the 1 cm split in the lower infraspinatus posteriorly and then placed a 1.4 mm suture tape in the center of the rotator cuff tear anatomically Centering iit. We then proceeded to place multiple 1.4 mm suture tapes and number 2 Ethibonds as simple sutures through the medial greater tuberosity in a conversion pattern to give a spherical contour to the repaired tendon. A total of 6 1.4 mm Eliezer suture tapes and 3 number 2 Ethibonds were used to repair the tendon not including the side to side tendon approximation stitches posteriorly and rotator cuff interval repair. The arm was taken through its full range of motion without any tension on the repair. The thickness of the lateral edge of the tendon was very ample throughout and I did not feel that tendon augmentation was indicated for this gentleman. The arthroscope was placed into the posterior portal viewing the supraspinatus infraspinatus compressed to the tuberosities at the articular surface margin and the long head of the biceps remained mobile. Subacromial space thoroughly irrigated with antibiotic solution containing a g of Ancef and a g of vancomycin in the 1 L bile is solution. The anterior deltoid was reapproximated to the anterior acromion with 2. Vicryl suture and the split closed with 1. Vicryl suture. Skin closed with 2 subcutaneous Vicryl and glue. He was placed in a UltraSling shoulder immobilizer device and transferred to postop recovery room in stable condition. No known complications. 2 additional g of Ancef given at the end of the procedure. [facility] Billing Surgery - Charge Forward: Surgery Billing (Diagnostic arthroscopy with mini open rotator cuff repair)
--- NOTE | 2025-04-27 10:22 | P.OPB_ITS ---
Procedure Note - Brief Procedure Note - Brief Date of procedure: 04/27/25 lrg rot cuff tear left Procedure performed: Arthroscopy left shoulder with open rotator cuff repair Surgeon: ANGIE Da Silva Findings: 75-year-old male underwent arthroscopy of his left shoulder with open rotator cuff on 04/27. I was involved in the procedure including positioning patient on the OR table in 1st assisting through the time surgery. Total time spent was 2- 1/2 hours.
[2025-04-27] MEDS: INSULIN HUMAN REGULAR (*BKC) 100 UNITS/ML SUB-Q (10:26)
[2025-04-27] MEDS: fentaNYL CITRATE INJ (*CRX) 100 MCG/2 ML VIAL 25 MCG IV PUSH ×8 (10:42→12:10)
[2025-04-27] MEDS: ceFAZolin 1 GM in SODIUM CHLORIDE 0.9% IV 50 ML 100 ML IVPB (10:59)
[2025-04-27] MEDS: oxyCODONE HCL (*CRX) 5 MG TAB IR PO (13:09)
== END 2025-04-27 13:55 | disposition home or self-care (01) ==
PROVIDERS: PCP Internal Medicine; Visit Provider Orthopaedic Surgery
PROC: (CPT 29805; principal; 2025-04-27 07:30)
DX: M75.122 Complete rotator cuff tear or rupture of left shoulder, not specified as traumatic (principal); M94.212 Chondromalacia, left shoulder; E11.9 Type 2 diabetes mellitus without complications; J44.9 Chronic obstructive pulmonary disease, unspecified; R06.89 Other abnormalities of breathing; I10 Essential (primary) hypertension; E78.5 Hyperlipidemia, unspecified; W00.0XXA Fall on same level due to ice and snow, initial encounter; Z79.84 Long term (current) use of oral hypoglycemic drugs; Z79.51 Long term (current) use of inhaled steroids; Z79.82 Long term (current) use of aspirin; Z79.1 Long term (current) use of non-steroidal anti-inflammatories (NSAID); Z79.891 Long term (current) use of opiate analgesic; Z98.890 Other specified postprocedural states; Z95.828 Presence of other vascular implants and grafts; Z98.1 Arthrodesis status; Z87.891 Personal history of nicotine dependence; Z80.0 Family history of malignant neoplasm of digestive organs; Z82.49 Family history of ischemic heart disease and other diseases of the circulatory system
CPT/HCPCS: 23410; 82948; J0690; A9270; J1815; J1885; J2003; J2250; J2270; J2405; J2704; J3010; J3373; J7050; J7120

== ENCOUNTER 2025-04-28 06:33 | Emergency (ER) | payer MEDICARE, SELFPAY ==
--- OUTSIDE RECORDS SUMMARY | 2025-04-28 06:36 | XMS_ITS | Clinical Summary ---
Author Organization [facility] Address [address] [place] [address] Care Team Providers Care Water Valve Mechanic Name Role Phone Unavailable Primary Care Provider Unavailabl e Source Comments [facility],non-owned Affiliates and Associated Physician Practices is amultiple site organization consisting of ambulatory clinics and hospital sitesin [place], [place], [place] and [place]. This disclosure is being madepursuant to the Care Everywhere program and may not contain all information available regarding this patient. Last updated 18.[facility] Allergies No known active allergies Medications * [...] Date Recorded PHQ2 TOTAL SCORE 0 03/07/2023 [facility] - Occupational [...] place to sleep or slept in a [place] health care facility (including now)? No 03/03/2023 Sex and Gender [...] this topic Medical Devices Implanted Type Area Etl Analyst Device Identifier Shelf Expiration Date Model / Serial / Lot Stent Enroute Uber Flx 7mm .065in 40mm Implanted:Qty : 1 on 03/05/2023 by Betty Crane DO at [facility] Stent - Vascular Right: Arterial Invarium [facility] 04/16/2025 SR-0740-C S / / [id number] Description:IMPLANTED RIGHT CAROTID ARTERY Insurance [place] MANAGED MEDICARE ADV Advance Directives * Full Code (Latest Code Status on File) Date Activated Date Inactivated Comments 03/03/2023 5:15 AM 03/08/2023 8:02 PM
--- OUTSIDE RECORDS SUMMARY | 2025-04-28 06:36 | XMS_ITS ---
Author Organization [facility] Address [address] [facility] [address] [facility] [address] [place] [address] Care Team Providers Care Government Auditor Name Role Phone HinsonDuyOwen Unavailable [phone] Medications Medication SIG (Take, Route, Frequency, Duration) Notes Start Date End Date Status Calcitriol 0.25 MCG 1 capsule Orally corrine ry other day; Duration: 05/30/2023 02/24/2024 Active Losartan Potassium 50 MG 1 tablet Orally Once a day; Duration: 05/30/2023 Active Ergocalciferol 1.25 MG (76100 UT) 1 capsule Orally Once a week; Duration: 90 day(s) 08/29/2023 05/25/2024 Active Social History Sex Assigned At : Social History Observation Description Sex Assigned At Male Encounters Encounter Location Date Provider Diagnosis [place] [facility] [address] [facility] [address] [place] [address] 01/23/2024 Owen Hinson Chronic kidney disease, stage [...] * CRISS CALERODOB: [birth year] (75 yo M)Acc No.[id number]:01/23/2024 Progress Notes Patient: CRISS FORRESTER Provider: Yao GARICA MD, Ricky.Jamaal.Vandana.P, F.A.S.N. :1950 A ge:73 Y S ex:Male Date:01/23/2024 Address:[address] [place] [address] Subjective: * Chief Complaints: * * Medical History: * Medications: T aking Losartan Potassium 50 MG Tablet 1 tablet Orally Once a day , Taking Calcitriol 0.25 MCG Capsule 1 capsule Orally every other day , stop date 02/24/2024, Taking Ergocalciferol 1.25 MG (81724 UT) Capsule 1 capsule Orally Once a [...] Treatment: * Billing Information: * Visit Code: 99921 Office Visit, Est Pt., Level 4. * Procedure Codes: * Electronic signature of Marisela Hinson MD on 04/28/2025 at 06:36 AM CDT Sign off status: Pending * Provider: Yao GARCIA MD, Ricky.Jamaal.Vandana.P, F.A.S.N. Date: 0 01/23/2024 Generated for Printing/Faxing/eTransmitting on: 0 04/28/2025 06:36 AM CDT
--- OUTSIDE RECORDS SUMMARY | 2025-04-28 06:36 | XMS_ITS ---
Author Organization [facility] Address [address] [place] [address] [place] [address] Care Team Providers Care Slat Basket Top Maker Name Role Phone HinsonHemalathaOwen Unavailable [phone] Medications Medication SIG (Take, Route, Frequency, Duration) Notes Start Date End Date Status Losartan Potassium 50 MG 1 tablet Orally Once a day; Duration: 90 05/30/2023 Active Social History Sex Assigned At : Social History Observation Description Sex Assigned At Male Encounters Encounter Location Date Provider Diagnosis [place] [facility] [address] [address] 08/01/2024 Owen Hinson Chronic kidney disease, stage [...] * CRISS CALERODOB: [birth year] (75 yo M)Acc No.[id number]:08/01/2024 Progress Notes Patient: CRISS FORRESTER Provider: Yao GARCIA MD, F.A.C.P, F.A.S.N. :1950 A ge:74 Y S ex:Male Date:08/01/2024 Address:[address] [place] [address] Subjective: * Chief Complaints: * * Medical [...] Treatment: * Billing Information: * Visit Code: 17030 Office Visit, Est Pt., Level 4. * Procedure Codes: * Electronic signature of Marisela Hinson MD on 04/28/2025 at 06:36 AM CDT Sign off status: Pending * Provider: Yao GARCIA MD, F.A.C.P, F.A.S.N. Date: 10/01/2023 Generated for Printing/Faxing/eTransmitting on: 0 04/28/2025 06:36 AM CDT
--- OUTSIDE RECORDS SUMMARY | 2025-04-28 06:36 | XMS_ITS ---
Author Organization [facility] Address [address] [place] [address] Care Team Providers Care Unclaimed Property Officer Name Role Phone HinsonDuyOwen Unavailable [phone] Medications Medication SIG (Take, Route, Frequency, Duration) Notes Start Date End Date Status Losartan Potassium 50 MG 1 tablet Orally Once a day; Duration: 05/30/2023 Active Ergocalciferol 1.25 MG (98799 UT) 1 capsule Orally Once a week; Duration: 90 day(s) 08/29/2023 05/25/2024 Active Calcitriol 0.25 MCG 1 capsule Orally corrine ry other day; Duration: 90 05/30/2023 02/24/2024 Active Social History Sex Assigned At : Social History Observation Description Sex Assigned At Male Encounters Encounter Location Date Provider Diagnosis [place] [facility] [address] [facility] [address] [place] [address] 11/21/2023 Owen Hinson Chronic kidney disease, stage [...] * CRISS CALERODOB: [birth year] (75 yo M)Acc No.[id number]:11/21/2023 Progress Notes Patient: CRISS FORRESTER Provider: Yao GRACIA MD, Ricky.Jamaal.Vandana.P, F.A.S.N. :1950 A ge:73 Y S ex:Male Date:11/21/2023 Address:[address] [place] [address] Subjective: * Chief Complaints: * * Medical History: * Medications: T aking Losartan Potassium 50 MG Tablet 1 tablet Orally Once a day , Taking Calcitriol 0.25 MCG Capsule 1 capsule Orally every other day , stop date 02/24/2024, Taking Ergocalciferol 1.25 MG (11957 UT) Capsule 1 capsule Orally Once a [...] Treatment: * Billing Information: * Visit Code: 23697 Office Visit, Est Pt., Level 4. * Procedure Codes: * Electronic signature of Marisela Hinson MD on 04/28/2025 at 06:36 AM CDT Sign off status: Pending * Provider: Yao GARCIA MD, Ricky.Jamaal.Vandana.P, F.A.S.N. Date: 0 11/21/2023 Generated for Printing/Faxing/eTransmitting on: 0 04/28/2025 06:36 AM CDT
--- OUTSIDE RECORDS SUMMARY | 2025-04-28 06:36 | XMS_ITS | Patient Health Record ---
Author Organization [facility] Address [address] [place] [address] Care Team Providers Care Production Supervisor Trainee Name Role Phone Sravan Owen Unavailable [phone] Reason For Referral No Information Medications Medication [...] Hyperglycemia due to type 2 diabetes mellitus (163017125849995) Type 2 diabetes mellitus with hyperglycemia (E11.65) Active confirmed Problem Acute exacerbation of chronic obstructive airways disease (447725445) Chronic obstructive pulmonary disease with (acute) exacerbation (J44.1) Active confirmed Problem Chronic kidney disease stage 2 (929456609) Chronic kidney disease, stage 2 (mild) (N18.2) Active confirmed Problem Proteinuria (41558725) Other proteinuria (R80.8) Active confirmed Problem Essential hypertension (48600116) Essential hypertension (I10) Active confirmed Encounters Encounter Location Date Provider Diagnosis [facility] [address] [address] 08/01/2024 Owen Hinson Chronic kidney disease, stage 2 (mild) N18.2 ; Other proteinuria R80.8 ; Type 2 diabetes mellitus with hyperglycemia E11.65 ; Chronic obstructive pulmonary disease with (acute) exacerbation J44.1 and Essential hypertension I10 [place] [facility] [address] [address] 08/01/2024 Owen Hinson Assessments Encounter Date Diagnosis [...]
--- OUTSIDE RECORDS SUMMARY | 2025-04-28 06:36 | XMS_ITS | Clinical Summary ---
Author Organization [facility] Address [address] [place] [address] Phone Care Team Providers Care Rougher Merchant Mill Name Role Phone Unavailable Primary Care Provider [...] 03/23/2025 4:30 PM CDT Telephone Check Up [facility] Oncology and Hematology - Alfredo [address] [place] [address] Maxwell Oleary MD 03/17/2025 Orders Only [facility] Oncology and Hematology - Alfredo [address] [place] [address] Maxwell Oleary MD 02/24/2025 Telephone [facility] Oncology and Hematology - Alfredo [address] [place] [address] Maxwell Oleary MD Follow Up Appointment 02/17/2025 External Device Data [facility] ABSTRACTION Provider, Abstract 02/17/2025 External Device Data [facility] ABSTRACTION Provider, Abstract 02/17/2025 External Device Data [facility] ABSTRACTION Provider, Abstract 02/13/2025 Orders Only [facility] Oncology and Hematology - Alfredo [address] [place] [address] Maxwell Oleary MD 02/10/2025 3:00 PM CDT Office Visit [facility] Oncology and Hematology - Alfredo [address] [place] [address] Maxwell Oleary MD Cancer, metastatic to bone [...] Re sult from Last 3 Months Insurance [facility] [address]
--- OUTSIDE RECORDS SUMMARY | 2025-04-28 06:36 | XMS_ITS | Clinical Summary ---
Author Organization [facility] Facility Address [address] [facility] [address] [address] Care Team Providers Care Charge Poster Name Role Phone Naila Moreno MD Primary Care Provider [phone] Social History Tobacco Use Types Packs/Day Years [...] patient's age to complete this topic Insurance [facility] Medicare Care Teams Charge Poster Relationship Specialty Start Date End Date Naila Moreno MD [address] [place] [address] PCP - General Internal Medicine 11/30/23
[2025-04-28 06:38] VITALS: BP 147/88; PULSE 86; RESP 18; TEMP 36.9; O2SAT 95
--- OUTSIDE RECORDS SUMMARY | 2025-04-28 07:19 | XMS_ITS | Clinical Summary ---
Author Organization [facility] Address [address] [place] [address] Phone Care Team Providers Care Picture Hanger Name Role Phone Unavailable Primary Care Provider [...] 03/23/2025 4:30 PM CDT Telephone Check Up [facility] Oncology and Hematology - Alfredo [address] [place] [address] Maxwell Oleary MD 03/17/2025 Orders Only [facility] Oncology and Hematology - Alfredo [address] [place] [address] Maxwell Oleary MD 02/24/2025 Telephone [facility] Oncology and Hematology - Alfredo [address] [place] [address] Maxwell Oleary MD Follow Up Appointment 02/17/2025 External Device Data [facility] ABSTRACTION Provider, Abstract 02/17/2025 External Device Data [facility] ABSTRACTION Provider, Abstract 02/17/2025 External Device Data [facility] ABSTRACTION Provider, Abstract 02/13/2025 Orders Only [facility] Oncology and Hematology - Alfredo [address] [place] [address] Maxwell Oleary MD 02/10/2025 3:00 PM CDT Office Visit [facility] Oncology and Hematology - Alfredo [address] [place] [address] Maxwell Oleary MD Cancer, metastatic to bone [...] Re sult from Last 3 Months Insurance [facility] [address] [address] [place] [address]
--- OUTSIDE RECORDS SUMMARY | 2025-04-28 07:19 | XMS_ITS | Clinical Summary ---
Author Organization [facility] Facility Address [address] [facility] [address] [address] Care Team Providers Care Motorboat Operator Name Role Phone Naila Moreno MD Primary Care Provider [phone] Social History Tobacco Use Types Packs/Day Years [...] patient's age to complete this topic Insurance [facility] Medicare Care Teams Motorboat Operator Relationship Specialty Start Date End Date Naila Moreno MD [address] [place] [address] PCP - General Internal Medicine 11/30/23
--- OUTSIDE RECORDS SUMMARY | 2025-04-28 07:20 | XMS_ITS | Clinical Summary ---
Author Organization [facility] Address [address] [facility] [place] [address] Care Team Providers Care Certified Forklift Operator Name Role Phone Unavailable Primary Care Provider Unavailabl e Source Comments [facility],non-owned Affiliates and Associated Physician Practices is amultiple site organization consisting of ambulatory clinics and hospital sitesin [place], [place], [place] and [place]. This disclosure is being madepursuant to the Care Everywhere program and may not contain all information available regarding this patient. Last updated 18.[facility] Allergies No known active allergies Medications * [...] this topic Medical Devices Implanted Type Area Plant Attendant Device Identifier Shelf Expiration Date Model / Serial / Lot Stent Enroute Uber Flx 7mm .065in 40mm Implanted:Qty : 1 on 03/05/2023 by Betty Crane DO at [facility] Stent - Vascular Right: Arterial FRAMED [facility] 04/16/2025 [id number] / / [id number] Description:IMPLANTED RIGHT CAROTID ARTERY Insurance [facility] MANAGED MEDICARE ADV Advance Directives * Full Code (Latest Code Status on File) Date Activated Date Inactivated Comments 03/03/2023 5:15 AM 03/08/2023 8:02 PM
[2025-04-28] MEDS: HYDROmorphone HCL INJ (*CRX) 2 MG/ML VIAL 1 MG IV PUSH (07:30)
--- NOTE | 2025-04-28 07:33 | ED.UPPEXIN ---
HPI - Extremity Injury (Upper) General Chief Complaint: Extremity Injury, Upper Stated Complaint: L shoulder pain, surgery x1 day ago Time Seen by Provider: 04/28/25 07:05 History of Present Illness HPI narrative: Pt had left rotator cuff repair surgery yesterday by Dr Nguyen and says when they put on his shirt and repositioned his brace prior to discharge the pain increased and has not relented and the oxycodone he has at home is not helping. Pt has not called his surgeon yet. Related Data Home Medications ?Medication ?Instructions ?Recorded ?Confirmed ?Last Taken ?Type metformin 500 mg tablet,extended 500 mg PO BID 05/26/24 04/17/25 02/11/25 History release 24 hr atorvastatin 40 mg tablet 40 mg PO DAILY 01/26/25 04/17/25 02/11/25 History aspirin 81 mg chewable tablet 81 mg PO DAILY 02/03/25 04/27/25 04/26/25 History chlorthalidone 25 mg tablet 25 mg PO DAILY 02/03/25 04/17/25 02/11/25 History losartan 50 mg tablet 50 mg PO BID 02/03/25 04/17/25 02/11/25 History metoprolol succinate 50 mg 50 mg PO DAILY 02/03/25 04/17/25 02/11/25 History tablet,extended release 24 hr glucagon 3 mg/actuation nasal spray 3 mg intranasal ONCE PRN 04/17/25 04/17/25 Unknown History hypoglycemia Allergies Allergy/AdvReac Type Severity Reaction Status Date / Time No Known Allergies Allergy Verified 04/28/25 07:30 Review of Systems Review of Systems: All systems reviewed & are unremarkable except as noted in HPI and below [facility] Past Medical History Medical History Diabetes COPD (chronic obstructive pulmonary disease) Hypertension Hyperlipidemia COPD (chronic obstructive pulmonary disease) Diabetes Hypertension Surgical History Surgical History H/O neck surgery Previous back surgery History of hip surgery No pertinent past surgical history Family History Family History Mother Acute myocardial infarction Congestive heart failure Chronic obstructive pulmonary disease Hypertension Asthma Sibling History of blood clots Colon cancer Grandparent Cerebrovascular accident Social History Social History Social History: current smoker Smoking packs per day: 1 Smoking cigarettes per day: 20.0 Years smoked: 50 Smoking pack-years: 50.00 Smoking status: Former smoker Tobacco type: cigarettes Smoking end date: 02/15/23 Alcohol intake: former Alcohol use details: not drank in 15 yrs, Heavy drinker before Substance use: current Substance use type: painkillers Other substance usage details: Pain killers for shoulder injury Do You Feel Safe in your Home?: Yes Lack of Transportation: No Lack of Food: Sometimes True Current Housing: I Have Housing Concerned About Future Housing: No Difficulty Paying Gas/Electric Bills: YES Difficulty Paying for Meds: YES Currently Unemployed: No Education: High School Diploma/GED Difficulty w/ Childcare or Family Care: No Living arrangements: alone Additional living arrangements comments: DAUGHTER, ANTIONE AND KIDS STAYING WITH HIM CURRENTLY Occupation/Education: retired Spiritual care concerns: No Exam Const: General: healthy appearing and no acute distress Nutritional Appearance: well nourished Orientation/consciousness: patient oriented x3 Limitations: no limitations Chest: Chest palpation & inspection: normal inspection of the chest Resp: Effort & Inspection: normal respiratory effort Auscultation: clear to auscultation bilaterally Cardio: Rate: regular rate Rhythm: regular rhythm GI: GI Palp: Yes Soft to palpation and No Tenderness to palpation present (GI) Auscultation: normal bowel sounds Skin: General skin exam: normal color Rashes: no rashes Other: surgical wound covered but no surrounding erythema Neuro: General: patient oriented x3 and moves all extremities Speech: normal speech Extrem: Other: brace in place tender to palpatin of left shoulder Psych: Mental Status: mental status grossly normal Affect: normal affect Attitude: cooperative Course Vital Signs Vital signs: Vital Signs Temperature 98.5 F 04/28/25 06:38 Pulse Rate 86 04/28/25 06:38 Respiratory Rate 18 04/28/25 06:38 Blood Pressure 147/88 H 04/28/25 06:38 Pulse Oximetry 95 04/28/25 06:38 Oxygen Delivery Room Air 04/28/25 06:38 Temperature 98.5 F 04/28/25 06:38 Pulse Rate 75 08/12/25 08:34 Respiratory Rate 14 04/28/25 08:34 Blood Pressure 127/67 04/28/25 08:34 Pulse Oximetry 93 04/28/25 08:34 Oxygen Delivery Room Air 04/28/25 06:38 MDM - Extremity Injury (Upper) MDM Narrative Medical decision making narrative: Pt has left shoulder johnson after rotator cuff repair surgery yesterday. will give shot of dilaudid and contact Dr Nguyen. Dr Nguyen asked for us to restart his celebrex for a week and continue the oxycodone and tylenol as directed. Will dsicuss with daughter when she arrives to take him home. Pt feels better after dilaudid. Discharge Plan Discharge Clinical Impression: Acute pain of left shoulder Patient Disposition: Home Condition: Improved Instructions: Antibiotic Form, Shoulder Pain (ED) Patient Language: Afghan Prescriptions: New celecoxib [Celebrex] 100 mg capsule 100 mg PO DAILY Qty: 7 0RF No Action lansoprazole 30 mg capsule,delayed release(DR/EC) 30 mg PO DAILY Qty: 90 3RF Trelegy Ellipta 100 mcg-62.5 mcg-25 mcg powder for inhalation 100-62.5-25 mcg blister with device 0RF metoprolol succinate 50 mg tablet extended release 24 hr 50 mg PO DAILY Patient Comments: QAM chlorthalidone 25 mg tablet 25 mg PO DAILY Patient Comments: QAM losartan 50 mg tablet 50 mg PO BID aspirin 81 mg tablet,chewable 81 mg PO DAILY glucagon 3 mg/actuation spray,non-aerosol 3 mg intranasal ONCE PRN (Reason: hypoglycemia) Rx Instructions: as a single dose For low blood sugars if unable to eat or drink doxycycline hyclate 100 mg capsule 100 mg PO DAILY Qty: 20 0RF acetaminophen [Tylenol 8 Hour] 650 mg tablet extended release 650 mg PO Q4H Qty: 90 0RF oxycodone 5 mg tablet 2.5 mg PO Q4H PRN (Reason: pain) Qty: 20 0RF sennosides-docusate sodium 8.6-50 mg capsule 2 tab-cap PO BID Qty: 60 0RF polyethylene glycol 3350 [Miralax] 17 gram/dose powder 17 g PO DAILY Qty: 238 0RF metformin 500 mg tablet extended release 24 hr 500 mg PO BID atorvastatin 40 mg tablet 40 mg PO DAILY Trelegy Ellipta 200-62.5-25 mcg Blister With Device 1 inh inhalation DAILYRT Qty: 1 2RF albuterol sulfate 2.5 mg /3 mL (0.083 %) solution for nebulization 2.5 mg inhalation Q4H PRN (Reason: shortness of breath or wheezing) Qty: 75 2RF albuterol sulfate [Ventolin HFA] 90 mcg/actuation HFA aerosol inhaler 2 puff INHALATION Q6H PRN (Reason: Shortness Of Breath Or Wheezing) Qty: 1 0RF (DME) blood-glucose meter [Blood Glucose Monitoring] Kit See Rx Instructions .Route Qty: 1 1RF Rx Instructions: As directed. Blood-glucose meter as covered by insurance (DME) lancets [Comfort EZ Lancets] 28 gauge misc See Rx Instructions .Route Qty: 100 11RF Rx Instructions: As directed--lancets and test strips per insurance. For checking blood sugar 4 times a day (before meals and bedtime) (DME) OneTouch Verio test strips Strip See Rx Instructions .Route Qty: 100 11RF Rx Instructions: As directed. For checking blood sugars 4 times a day (before meals and bedtime) Test strips per insurance oxycodone 5 mg tablet 5 mg PO Q4H Qty: 40 0RF Follow-up/Referrals: Tiffanie,MD Naila [Primary Care Provider] -
[2025-04-28] MEDS: CELECOXIB 100 MG CAPSULE PO (08:19)
[2025-04-28 08:34] VITALS: BP 127/67; PULSE 75; RESP 14; O2SAT 93
== END 2025-04-28 08:36 | disposition home or self-care (01) ==
PROVIDERS: Emergency Provider Emergency Medicine; PCP Internal Medicine
DX: M25.512 Pain in left shoulder (principal); E11.9 Type 2 diabetes mellitus without complications; J44.9 Chronic obstructive pulmonary disease, unspecified; I10 Essential (primary) hypertension; E78.5 Hyperlipidemia, unspecified; Z87.891 Personal history of nicotine dependence; Z98.890 Other specified postprocedural states
CPT/HCPCS: 96374; 99284; A9270; J1171

== ENCOUNTER 2025-07-30 14:00 | Outpatient (RCR) | payer MEDICARE, SELFPAY ==
--- NOTE | 2025-05-07 13:28 | OPREHPOC ---
Outpatient Therapy Plan of Care This is a Multidisciplinary Plan of Care that may contain components documented by all disciplines (PT, OT, and ST.) PT Problem 1 PT Problem #1 Knowledge Deficit PT Goal 1 Goal / Goal Update Patient to demonstrate independence with HEP for improved self-reliance of symptom management. Target Visit 4 PT Problem 2 PT Problem #2 Pain PT Goal 1 Goal / Goal Update 1. Patient to decrease subjective reports of pain to </10 for improved ADL tolerance. 2. Patient to report 50% improvement in quantity and quality of sleep due to decreased pain. 3. Patient will score </=25% disability on the QuickDash to demonstrate meaningful improvement in patient's quality of life. Target Visit 12 PT Problem 3 PT Problem #3 Impaired Range of Motion PT Goal 1 Goal / Goal Update 1. Pt to demonstrate an increase of L shoulder AROM flexion to >=150 deg to improve the ability to reach overhead. Target Visit 12 PT Problem 4 PT Problem #4 Impaired Strength PT Goal 1 Goal / Goal Update 1. Patient to demonstrate L shoulder girdle strength >=4/5 for improved functional stability required for ADLs. Target Visit 12
--- NOTE | 2025-05-07 13:28 | PTOPEVAL1 ---
Assessment and note entered by Rasta Jacob PT Evaluation Information Assessment Status Evaluation Diagnosis Left Rotator Cuff repair ICD-10 Condition Codes (PT) Pain in left shoulder M25.512,Encounter for other orthopedic aftercare Z47.89 Onset 04/27/25 Subjective Information Patient presents status post L rotator cuff repair on 04-27-25. Pt reports he had a ER visit the following day due to increased pain in L shoulder, he reports the pain was out of the park but has now calmed down. Patient needs to get back to activities of daily living and return to prior level of function. Patient is currently sleeping in sling. Patient is having assist with dressing and donning and doffing sling. Pt has MD follow up on the . Reported Pain Level Pain Score 7: Self Report Assessment PT Clinical Summary Patient presents to physical therapy status post L rotator cuff repair. Patient demonstrates post surgical weakness, pain, decreased mobility, abnormal posture, and decreased flexibility that limit their ability to perform activities of daily living and functional movements. Patient will benefit from skilled physical therapy to address the above listed deficits and return to prior level of function. Home exercise program instructed and written handout provided, exercises tolerated well with no adverse effects to note post-session. Patient was educated on importance of adherence to home exercise program. Patient was also educated on anatomy, prognosis, home modalities, and plan of care. Plan of Care Interventions Electrical Stimulation,Hot Pack/Cold Pack,Manual Therapy,Neuro Re-education,Therapeutic Activities, Therapeutic Exercise,Self-Care/Home Management, Other PT Services Indicated Yes Treatment Frequency and 2x week 12 visits Duration These treatments will address the objective and functional deficits as defined above. The patient will be advanced safely and appropriately in order for the patient to progress towards his/her prior level of function. Additional exercises will be introduced and as well as a comprehensive home exercise program upon discharge, if needed, ?to ensure carryover of functional gains achieved in the clinic. This treatment plan has been reviewed and agreement upon by the patient.
--- NOTE | 2025-06-08 08:38 | PCPTNOTE ---
Pt cancelled today sick. Note spoke with Dr. Wilkins's Associate Kezia this date. Discussed ongoing concerns: Grandson has Not come in for PROM instruction therefor pt is Not receiving PROM at home. Pt's last recorded PROM 105' elevation. ER as expected. Pts pendulum is very stiff and guarded. Per conversation with Kezia, cont until otherwise directed. AKS
--- NOTE | 2025-06-18 16:31 | OPREHPOC ---
Outpatient Therapy Plan of Care This is a Multidisciplinary Plan of Care that may contain components documented by all disciplines (PT, OT, and ST.) PT Problem 1 PT Problem #1 Knowledge Deficit PT Goal 1 Goal / Goal Update Patient to demonstrate independence with HEP for improved self-reliance of symptom management. Target Visit 4 Progress Met PT Problem 2 PT Problem #2 Pain PT Goal 1 Goal / Goal Update 1. Patient to decrease subjective reports of pain to </10 for improved ADL tolerance. 2. Patient to report 50% improvement in quantity and quality of sleep due to decreased pain. 3. Patient will score </=25% disability on the QuickDash to demonstrate meaningful improvement in patient's quality of life. Target Visit 18 PT Problem 3 PT Problem #3 Impaired Range of Motion PT Goal 1 Goal / Goal Update 1. Pt to demonstrate an increase of L shoulder AROM flexion to >=150 deg to improve the ability to reach overhead. Target Visit 18 PT Problem 4 PT Problem #4 Impaired Strength PT Goal 1 Goal / Goal Update 1. Patient to demonstrate L shoulder girdle strength >=4/5 for improved functional stability required for ADLs. Target Visit 18
--- NOTE | 2025-06-18 16:32 | PTOPPROG ---
Assessment and note entered by Charbel Braden, PT Evaluation Information Assessment Status Progress Diagnosis Left Rotator Cuff repair ICD-10 Condition Codes (PT) Pain in left shoulder M25.512,Encounter for other orthopedic aftercare Z47.89 Onset 04/27/25 Subjective Information Patient reports that overall he was happy to get rid of the sling. Feels that he is capable to push himself a little bit more. Still painful at end capsular range. He purchased pulleys for home to start more regular stretching outside of therapy. Assessment PT Clinical Summary Patient making slow but positive progress with ROM . He has seen improvement in flexion and rotation motion. We have been limited by protocol given the nature of his tear and repair and are now showing projected increase in available activity. Plan of Care Interventions Electrical Stimulation,Hot Pack/Cold Pack,Manual Therapy,Neuro Re-education,Therapeutic Activities, Therapeutic Exercise,Self-Care/Home Management, Other PT Services Indicated Yes Treatment Frequency and 2x/week for 8 visits Duration These treatments will address the objective and functional deficits as defined above. The patient will be advanced safely and appropriately in order for the patient to progress towards his/her prior level of function. Additional exercises will be introduced and as well as a comprehensive home exercise program upon discharge, if needed, ?to ensure carryover of functional gains achieved in the clinic. This treatment plan has been reviewed and agreement upon by the patient.
--- NOTE | 2025-07-16 16:44 | OPREHPOC ---
Outpatient Therapy Plan of Care This is a Multidisciplinary Plan of Care that may contain components documented by all disciplines (PT, OT, and ST.) PT Problem 1 PT Problem #1 Knowledge Deficit PT Goal 1 Goal / Goal Update Patient to demonstrate independence with HEP for improved self-reliance of symptom management. Target Visit 4 Progress Met PT Problem 2 PT Problem #2 Pain PT Goal 1 Goal / Goal Update 1. Patient to decrease subjective reports of pain to </10 for improved ADL tolerance. 2. Patient to report 50% improvement in quantity and quality of sleep due to decreased pain. 3. Patient will score </=25% disability on the QuickDash to demonstrate meaningful improvement in patient's quality of life. Target Visit 18 Progress Partially Met PT Problem 3 PT Problem #3 Impaired Range of Motion PT Goal 1 Goal / Goal Update 1. Pt to demonstrate an increase of L shoulder AROM flexion to >=150 deg to improve the ability to reach overhead. Target Visit 26 Progress Partially Met PT Problem 4 PT Problem #4 Impaired Strength PT Goal 1 Goal / Goal Update 1. Patient to demonstrate L shoulder girdle strength >=4/5 for improved functional stability required for ADLs. Target Visit 26 Progress Partially Met
--- NOTE | 2025-07-16 16:44 | PTOPPROG ---
Assessment and note entered by Charbel Braden, PT Evaluation Information Assessment Status Progress Diagnosis Left Rotator Cuff repair ICD-10 Condition Codes (PT) Pain in left shoulder M25.512,Encounter for other orthopedic aftercare Z47.89 Onset 04/27/25 Subjective Information Patient reports that he feels he is doing better with both range and strength, but still feels fairly tight. He follows up with MD in 2 weeks. Has been pushing his ROM in home. Assessment PT Clinical Summary Patient has seen progress in both ROM and strength at this time. Continues to show weakness and lack of ROM compared to the functional ROM he has on the right side. Will continue to benefit form skilled therapy to address these deficits. Plan of Care Interventions Electrical Stimulation,Hot Pack/Cold Pack,Manual Therapy,Neuro Re-education,Therapeutic Activities, Therapeutic Exercise,Self-Care/Home Management, Other PT Services Indicated Yes Treatment Frequency and 2x/week for 8 visits Duration These treatments will address the objective and functional deficits as defined above. The patient will be advanced safely and appropriately in order for the patient to progress towards his/her prior level of function. Additional exercises will be introduced and as well as a comprehensive home exercise program upon discharge, if needed, ?to ensure carryover of functional gains achieved in the clinic. This treatment plan has been reviewed and agreement upon by the patient.
== END 2025-08-05 23:59 | disposition home or self-care (01) ==
LOC: ANHPT 14:00
PROVIDERS: PCP Internal Medicine; Visit Provider Orthopaedic Surgery
DX: Z48.89 Encounter for other specified surgical aftercare (principal); S46.012D Strain of muscle(s) and tendon(s) of the rotator cuff of left shoulder, subsequent encounter
CPT/HCPCS: 97014; 97035; 97110; 97112; 97140; 97161; 97530; G0283

== ENCOUNTER 2025-09-01 16:47 | Outpatient (CLI) | payer MEDICARE, SELFPAY ==
--- OUTSIDE RECORDS SUMMARY | 2024-08-01 08:45 | XMS_ITS ---
Author Organization [facility] Address [address] [address] [place] [address] Care Team Providers Care Electroplating Worker Name Role Phone HinsonHemalathaOwen Unavailable [phone] Medications Medication SIG (Take, Route, Frequency, Duration) Notes Start Date End Date Status Losartan Potassium 50 MG 1 tablet Orally Once a day; Duration: 90 05/30/2023 Active Social History Sex Assigned At : Social History Observation Description Sex Assigned At Male Encounters Encounter Location Date Provider Diagnosis [facility] [address] [address] 08/01/2024 Owen Hinson Chronic kidney disease, stage 2 (mild) N18.2 ; Other proteinuria R80.8 ; Type 2 diabetes mellitus with hyperglycemia E11.65 ; Chronic obstructive pulmonary disease with (acute) exacerbation J44.1 and Essential hypertension I10 Assessments Encounter Date Diagnosis (ICD Code) Assessment Notes Treatment Notes Treatment Clinical Notes Section Notes 08/01/2024 Chronic kidney disease, stage 2 (mild) (ICD-10 - N18.2) 08/01/2024 Other proteinuria (ICD-10 - R80.8) 08/01/2024 Type 2 diabetes mellitus with hyperglycemia (ICD-10 - E11.65) 08/01/2024 Chronic obstructive pulmonary disease with (acute) exacerbation (ICD-10 - J44.1) 08/01/2024 Essential hypertension (ICD-10 - I10) Plan Of Treatment No Information Progress Notes * CRISS CALERODOB: [birth year] (75 yo M)Acc No.[id number]:08/01/2024 Progress Notes Patient: CRISS FORRESTER Provider: Yao GARCIA MD, F.A.C.P, F.A.S.N. :1950 A ge:74 Y S ex:Male Date:08/01/2024 Address:[address] [place] [address] Subjective: * Chief Complaints: * * Medical History: * Medications: T aking Losartan Potassium 50 MG Tablet 1 tablet Orally Once a day Objective: * Vitals: Assessment: * Assessment: 1. C hronic kidney disease, stage 2 (mild) - N18.2 (Primary) 2 . O ther proteinuria - R80.8 3 . T ype 2 diabetes mellitus with hyperglycemia - E11.65 ? 4 . C hronic obstructive pulmonary disease with (acute) exacerbation - J44.1 & #160; 5 . E ssential hypertension - I10 Plan: * Treatment: * Billing Information: * Visit Code: 23305 Office Visit, Est Pt., Level 4. * Procedure Codes: * Electronic signature of Marisela Hinson MD on 09/01/2025 at 06:13 PM SOLAR PROJECT ENGINEER Sign off status: Pending * Provider: Yao GARCIA MD, F.A.C.P, F.A.S.N. Date: 10/01/2023 Generated for Printing/Faxing/eTransmitting on: 11/02/2024 06:13 PM [employer]INEER
[2025-09-01 17:51] LABS: Hematocrit 45.3 % (42.0-52.0); Hemoglobin 15.1 g/dL (14.0-18.0); Immature Granulocyte Percent A 0.2 % (0-0.5); Lymphocytes Absolute Auto 1.52 K/mm3 (0.9-3.2); Mean Corpuscular HGB Conc 33.3 g/dl (32-36); Mean Corpuscular Hemoglobin 29.6 pg (26-34); Mean Corpuscular Volume 88.8 fl (80-100); Nucleated Red Blood Cells Absolute Auto 0.000 K/mm3 (0.0-0.012); Nucleated Red Blood Cells Perc 0.0 % (0.0-0.2); Platelet Count Result 295 k/mm3 (150-375); Red Blood Count 5.10 M/mm3 (4.6-6.20); White Blood Count 5.5 K/mm3 (4.5-10.0)
[2025-09-01 18:03] LABS: Alanine Aminotransferase 22 U/L (6-50); Albumin Level 4.3 g/dL (3.5-5.1); Alkaline Phosphatase 154 U/L (38-126); Anion Gap 8 mmol/L (4-12); Aspartate Amino Transferase 25 U/L (17-59); Bilirubin,Total 1.2 mg/dL (0.2-1.3); Blood Urea Nitrogen 11 mg/dL (9-20); Calcium 10.0 mg/dL (8.4-10.2); Carbon Dioxide 26 mmol/L (22-30); Chloride 106 mmol/L (98-107); Cholesterol 242 mg/dL (0-200); Estimated Glomerular Filt Rate > 60; Glucose 154 mg/dL (65-110); HDL Direct 50 mg/dL; Potassium 4.8 mmol/L (3.4-5.0); Sodium 140 mmol/L (137-145); Total Protein 7.9 g/dL (6.3-8.2); Triglycerides 127 mg/dL (<150)
[2025-09-01 18:04] LABS: Hemoglobin A1C 8.0 % (<5.7)
--- OUTSIDE RECORDS SUMMARY | 2025-09-01 18:14 | XMS_ITS | Clinical Summary ---
Author Organization [facility] [employer] Address [address] [place] [address] Care Team Providers Care Clinical Services Assistant Name Role Phone Unavailable Primary Care Provider Unavailabl e Source Comments [facility] [employer],non-owned Affiliates and Associated Physician Practices is amultiple site organization consisting of ambulatory clinics and hospital sitesin [place], [place], [place] and [place]. This disclosure is being madepursuant to the Care Everywhere program and may not contain all information available regarding this patient. Last updated 18.[facility] [employer] Allergies No known active allergies Medications * [...] Date Recorded PHQ2 TOTAL SCORE 0 03/07/2023 [facility] - Occupational Stress [...] to sleep or slept in a senior living (including now)? No 03/03/2023 Sex and Gender [...] (1 of 2) 2002 AAA SCREENING 2017 DEPRESSION SCREENING 09/17/2024 03/22/2023 MEDICARE AWV CALENDAR YEAR 2024 COVID-19 VACCINE (3 - season) 2025 01/27/2021, 12/26/2020 INFLUENZA VACCINE (#1) 2025 9, [...] this topic Medical Devices Implanted Type Area Casing Puller Device Identifier Shelf Expiration Date Model / Serial / Lot Stent Enroute [employer] Flx 7mm .065in 40mm Implanted:Qty : 1 on 03/05/2023 by Betty Crane DO at [facility] Stent - Vascular Right: Arterial [employer] [facility] 04/16/2025 [id number] / / [id number] Description:IMPLANTED RIGHT CAROTID ARTERY Insurance [facility] MANAGED MEDICARE ADV Advance Directives * Full Code (Latest Code Status on File) Date Activated Date Inactivated Comments 03/03/2023 5:15 AM 03/08/2023 8:02 PM
--- OUTSIDE RECORDS SUMMARY | 2025-09-01 18:14 | XMS_ITS | Clinical Summary ---
Author Organization [facility] Address [address] [place] [address] Phone Care Team Providers Care Churner Name Role Phone Unavailable Primary Care Provider [...] Encounters Date Type Department Care Team Description 07/07/2025 External Device Data [facility] ABSTRACTION Provider, Abstract 06/23/2025 External Device Data [facility] ABSTRACTION Provider, Abstract 06/03/2025 External Device Data [facility] ABSTRACTION Provider, Abstract 06/02/2025 External Device Data [facility] ABSTRACTION Provider, Abstract 06/02/2025 External Device Data [facility] ABSTRACTION Provider, Abstract from Last 3 Months Family History Medical [...] 5 years 1997 Lung Cancer Screening 2002 RSV VACCINE (60+ or ) (1 - Risk 50-74 years 1-dose series) 2002 ZOSTER VACCINE (1 of 2) 2002 Abdominal Aortic Aneurysm (A AA) Screening 2017 PNEUMOCOCCAL VACCINE 50+ YEA RS (3 of 3 - PCV20 or PCV21) 07/24/2023 07/24/2018, 02/21/2017, 08/04/2015, Additional history exists DIABETES HBA1C Q 6 MONTHS 09/02/2023 03/03/2023 INFLUENZA VACCINE (#1) 2025 9, 07/24/2018, 08/04/2015, Additional history exists COVID-19 Vaccine (3 - 2024-2 6 season) 2025 01/27/2021, 12/26/2020 Insurance
--- OUTSIDE RECORDS SUMMARY | 2025-09-01 18:14 | XMS_ITS | Patient Health Record ---
Author Organization [facility] Address [address] [place] [address] Reason For Referral No Information Medications Medication [...] Hyperglycemia due to type 2 diabetes mellitus (106754699403774) Type 2 diabetes mellitus with hyperglycemia (E11.65) Active confirmed Problem Acute exacerbation of chronic obstructive airways disease (140205230) Chronic obstructive pulmonary disease with (acute) exacerbation (J44.1) Active confirmed Problem Chronic kidney disease stage 2 (801425510) Chronic kidney disease, stage 2 (mild) (N18.2) Active confirmed Problem Proteinuria (55723955) Other proteinuria (R80.8) Active confirmed Problem Essential hypertension (83375922) Essential hypertension (I10) Active confirmed Plan Of Treatment No Information
[2025-09-01 18:26] LABS: Free T4 Free Thyroxine 0.98 ng/dL (0.78-2.19)
[2025-09-01 18:38] LABS: Thyroid Stimulating Hormone 1.870 uIU/mL (0.465-4.680)
[2025-09-01 19:13] LABS: Vitamin B12 378.0 pg/mL (239-931)
[2025-09-01 19:18] LABS: MALB Creatinine Ratio 283.4 mg/g (0-30)
[2025-09-04 05:08] LABS: Free Testosterone (Direct) 10.3 pg/mL (6.6-18.1)
== END 2025-09-01 16:48 | disposition home or self-care (01) ==
LOC: ANHLAB 16:50
PROVIDERS: PCP Internal Medicine; Visit Provider Internal Medicine
DX: E29.1 Testicular hypofunction (principal); E11.9 Type 2 diabetes mellitus without complications; I10 Essential (primary) hypertension; R79.89 Other specified abnormal findings of blood chemistry; E55.9 Vitamin D deficiency, unspecified
CPT/HCPCS: 36415; 80053; 80061; 82043; 82306; 82607; 82746; 83036; 84402; 84403; 84439; 84443; 85025